=== PATIENT | male | born 1940 | race Caucasian/White ===

== ENCOUNTER → 2020-02-19 14:16 | Outpatient (BNVA) | payer OTHER, SELFPAY | PROVIDERS: Family Provider Family Medicine Adult Medicine; PCP Family Medicine Adult Medicine; Referring Provider Emergency Medicine Emergency Medical Services; Visit Provider Dermatology | DX: Z85.828 Personal history of other malignant neoplasm of skin (principal); L57.0 Actinic keratosis; L82.1 Other seborrheic keratosis; D22.9 Melanocytic nevi, unspecified | CPT/HCPCS: 17000; 17003; 99203 ==

== ENCOUNTER 2020-05-06 07:58 | Outpatient (RCR) | payer OTHER, SELFPAY | END 2020-05-29 23:59 | disposition home or self-care (01) | LOC: SPT 07:58 | PROVIDERS: PCP Emergency Medicine Emergency Medical Services; Referring Provider Emergency Medicine Emergency Medical Services; Visit Provider Emergency Medicine Emergency Medical Services | DX: M25.551 Pain in right hip (principal) | CPT/HCPCS: 97110; 97162 ==

== ENCOUNTER 2020-05-30 06:00 | Outpatient (RCR) | payer OTHER, SELFPAY | END 2020-06-29 23:59 | disposition home or self-care (01) | LOC: SPT 06:00 | PROVIDERS: PCP Emergency Medicine Emergency Medical Services; Referring Provider Emergency Medicine Emergency Medical Services; Visit Provider Emergency Medicine Emergency Medical Services | DX: M25.551 Pain in right hip (principal) | CPT/HCPCS: 97110 ==

== ENCOUNTER 2020-06-30 06:00 | Outpatient (RCR) | payer OTHER, SELFPAY | END 2020-07-27 23:59 | disposition home or self-care (01) | LOC: SPT 06:00 | PROVIDERS: PCP Emergency Medicine Emergency Medical Services; Referring Provider Emergency Medicine Emergency Medical Services; Visit Provider Emergency Medicine Emergency Medical Services | DX: M25.551 Pain in right hip (principal) | CPT/HCPCS: 97110 ==

== ENCOUNTER → 2021-01-07 08:08 | Outpatient (BNVA) | payer OTHER, SELFPAY | PROVIDERS: PCP Emergency Medicine Emergency Medical Services; Visit Provider Specialist | DX: M25.559 Pain in unspecified hip (principal) | CPT/HCPCS: 73502 ==

== ENCOUNTER 2021-10-16 14:02 | Outpatient (CLI) | payer OTHER, SELFPAY ==
--- NOTE | 2021-10-16 14:09 | USCV_ITS ---
Reginald Pelaez Age: 81 Gender: M : 1940 Exam Date: 10/16/2021 14:22 Ordering Phys: Sachin Gallagher DO Technologist: Eboni Alvarado [place] 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 Abnormal resting JAMES of 0.7 on the left side, suggestive of moderate peripheral arterial disease 3. Moderate diffuse plaques at the iliac and femoral arteries on the right side 3. Moderate to heavy diffuse heterogeneous irregular plaques at the left iliac and femoral arteries. Compared to the study from 11/29/2016, the occlusion of the infrapopliteal vessels on the right side appears new. The JAMES on the left side has decreased from 0.9 to 0.[address] Antonio Apodaca MD [facility] (Electronically Signed) Final Date: 16 Oct 2021 17:25 S
== END 2021-10-16 14:03 | disposition home or self-care (01) ==
LOC: RAD 14:02
PROVIDERS: PCP Emergency Medicine Emergency Medical Services; Visit Provider Emergency Medicine Emergency Medical Services
DX: M79.605 Pain in left leg (principal); M79.604 Pain in right leg
CPT/HCPCS: 93925

== ENCOUNTER → 2021-11-13 10:40 | Outpatient (BNVA) | payer OTHER, SELFPAY | PROVIDERS: PCP Emergency Medicine Emergency Medical Services; Visit Provider Internal Medicine | DX: I73.9 Peripheral vascular disease, unspecified (principal); I10 Essential (primary) hypertension; Z87.891 Personal history of nicotine dependence | CPT/HCPCS: 93005; 99204 ==

== ENCOUNTER 2021-12-21 16:50 | Inpatient (IN) | payer OTHER, MEDICARE, SELFPAY ==
[2021-12-21 17:02] VITALS: BP 85/56; PULSE 72; RESP 18; TEMP 36.4; O2SAT 95; BMI 25.1
--- NOTE | 2021-12-21 17:13 | W.ED.GENADLT ---
HPI - General Adult General: Chief complaint: Recheck/Abnormal Lab/Rx Stated complaint: Abnormal labs Time Seen by Provider: 12/21/21 17:10 History of Present Illness: Patient is a 81-year-old male with a history of hypertension prior hip surgery presenting to the emergency room with concerns of low sodium. Patient has been to his routine physical done at the [facility] was noted to have sodium 121. Patient denies any confusion, recent seizures, weakness in the arms or legs. Patient has no other focal complaints at this time. Patient has no prior history of SIADH, hyponatremia, heavy alcohol use or lung cancer. Onset: unknown Duration:ongoing Location:home Severity:moderate Associated symptoms: Deny chest pain, dyspnea, nausea, rash, palpitations or vomiting Review of Systems Const: Denies: fever(s) or chills Eyes: Denies: change in vision ENMT: Denies: mouth pain Card: Denies: chest pain or palpitations Resp: Denies: dyspnea or non-productive cough GI: Denies: abdominal pain, nausea, vomiting or diarrhea : Denies: dysuria Musc: Denies: extremity pain Skin/Breast: Denies: rash or new lesions Neuro: Denies: weakness in extremities Psych: Reports: other (Normal mood) Brien/Lymph: Denies: easy bruising PFSH ED PFSH: Medical History History of nonmelanoma skin cancer HTN (hypertension) Surgical History History of hip surgery Family History Other No pertinent family history Social History Smoking and tobacco status: former smoker Alcohol intake: current Alcohol type: beer, wine and hard liquor History of recent travel: No Physical Exam Const: COMMON NORMALS: alert HENMT: COMMON NORMALS: atraumatic HEAD & SCALP: atraumatic MOUTH: moist mucous membranes not abnormal Eye: COMMON NORMALS: EOMs intact bilaterally and conjunctivae normal CONJUNCTIVA: Yes conjunctivae normal Neck/C-Spine: COMMON NORMALS: full ROM and supple Resp: COMMON NORMALS: normal respiratory effort and clear to auscultation bilaterally AUSCULTATION: clear to auscultation bilaterally Cardio: COMMON NORMALS: regular rate RATE: regular rate GI: COMMON NORMALS: Soft to palpation and non-tender PALPATION: Yes Soft to palpation Extremity: COMMON NORMALS: full ROM Neuro: SENSORIUM/ORIENTATION: Yes alert MOTOR EXAM: No Abnormal motor strength present and Other motor observations present (no focal motor deficits) Psych: COMMON NORMALS: speech normal SPEECH: Yes normal speech MOOD & AFFECT: Yes euthymic mood Course Vital Signs: Vital signs: Vital Signs Temperature 97.6 F 12/21/21 17:02 Pulse Rate 68 12/21/21 18:21 Respiratory Rate 16 12/21/21 18:21 Blood Pressure 110/49 12/21/21 18:21 Pulse Oximetry 93 12/21/21 18:21 [facility] - General Adult Medical Decision Making 73-year-old male with a history of hypertension presenting to the emergency room for evaluation of hyponatremia. Patient is hemodynamically stable AAO x3, not confused. Neuro exam mostly intact. Sodium 118 in the emergency room. Potassium 3.3. Magnesium of 1.6. Patient will be admitted to the hospital for sodium correction. Patient received 1 L of IVF. No signs of confusion, altered renal status or seizure. Disposition: admission Lab Data : 12/21/21 17:20 12/21/21 17:20 Laboratory Results WBC 9.7 10^3/uL (4.0-10.0) 12/21/21 17:20 RBC 3.70 10^6/uL (4.1-5.3) L 12/21/21 17:20 Hgb 13.3 g/dL (11.7-16.6) 12/21/21 17:20 Hct 36.1 % (42.0-52.0) L 12/21/21 17:20 MCV 97.6 fl (80-94) H 12/21/21 17:20 MCH 35.9 pg (28.0-34.0) H 12/21/21 17:20 MCHC 36.8 g/dL (30.0-36.0) H 12/21/21 17:20 RDW 12.2 % (12.1-15.1) 12/21/21 17:20 Plt Count 337 10^3/cmm (130-400) 12/21/21 17:20 MPV 9.2 fL (7.4-10.4) 12/21/21 17:20 Neut % (Auto) 72.5 % 12/21/21 17:20 Lymph % (Auto) 14.8 % 12/21/21 17:20 [place] % (Auto) 10.9 % 12/21/21 17:20 Eos % (Auto) 0.6 % 12/21/21 17:20 Baso % (Auto) 0.6 % 12/21/21 17:20 Neut # (Auto) 7.00 10^3/uL (1.8-7.7) 12/21/21 17:20 Lymph # (Auto) 1.4 10^3/uL (0.8-4.8) 12/21/21 17:20 [place] # (Auto) 1.1 10^3/uL (0.2-0.9) H 12/21/21 17:20 Eos # (Auto) 0.1 10^3/uL (0.0-0.8) 12/21/21 17:20 Baso # (Auto) 0.1 10^3/uL (0.0-0.1) 12/21/21 17:20 Nucleated RBC % (auto) 0 % 12/21/21 17:20 Nucleated RBCs # 0.0 /100WBC 12/21/21 17:20 Sodium 118 mmol/L (136-145) L* 12/21/21 17:20 Potassium 3.3 mmol/L (3.5-5.1) L 12/21/21 17:20 Chloride 79 mmol/L (98-107) L 12/21/21 17:20 Carbon Dioxide 24 mmol/L (22-29) 12/21/21 17:20 Anion Gap 18.3 (5-19) 12/21/21 17:20 BUN 14 mg/dL (8-23) 12/21/21 17:20 Creatinine 1.0 mg/dL (0.7-1.2) 12/21/21 17:20 GFR Calculation Not Reportable 12/21/21 17:20 Glucose 108 mg/dL (65-115) 12/21/21 17:20 Calculated Osmolality 247 mOsm/kg (285-295) L 12/21/21 17:20 Calcium 8.9 mg/dL (8.5-10.5) 12/21/21 17:20 Magnesium 1.6 mg/dL (1.7-2.3) L 12/21/21 17:20 Discharge Plan Discharge Patient Disposition: Admitted As Inpatient Clinical Impression: Hyponatremia Condition: Stable Coding Level of Care Code ED Dispensing Lead for Jorge Fwd Exam Comprehensive
[2021-12-21 17:15] VITALS: BP 112/66; PULSE 70; RESP 16; O2SAT 96
[2021-12-21] MEDS: sodium chloride 0.9% 500 ML IV (17:28)
[2021-12-21 17:43] LABS: Basophils # 0.1 10^3/uL (0.0-0.1); Basophils % 0.6 %; Eosinophils # 0.1 10^3/uL (0.0-0.8); Eosinophils % 0.6 %; Hematocrit 36.1 % (42.0-52.0); Hemoglobin 13.3 g/dL (11.7-16.6); Lymphocytes # 1.4 10^3/uL (0.8-4.8); Lymphocytes % 14.8 %; Mean Corpuscular HGB Conc 36.8 g/dL (30.0-36.0); Mean Corpuscular Hemoglobin 35.9 pg (28.0-34.0); Mean Corpuscular Volume 97.6 fl (80-94); Mean Platelet Volume 9.2 fL (7.4-10.4); Monocytes # 1.1 10^3/uL (0.2-0.9); Monocytes % 10.9 %; Neutrophils % 72.5 %; Nucleated Red Blood Cells % 0 %; Platelet Count 337 10^3/cmm (130-400); Red Cell Distribution Width 12.2 % (12.1-15.1); White Blood Count 9.7 10^3/uL (4.0-10.0)
[2021-12-21 17:45] VITALS: BP 122/59; PULSE 71; RESP 16; O2SAT 93
[2021-12-21 17:58] LABS: Anion Gap 18.3 (5-19); Blood Urea Nitrogen 14 mg/dL (8-23); Calcium 8.9 mg/dL (8.5-10.5); Carbon Dioxide 24 mmol/L (22-29); Chloride 79 mmol/L (98-107); Glucose 108 mg/dL (65-115); Magnesium 1.6 mg/dL (1.7-2.3); Osmolality Calculated 247 mOsm/kg (285-295); Potassium 3.3 mmol/L (3.5-5.1)
[2021-12-21 18:10] LABS: Sodium 118 mmol/L (136-145)
[2021-12-21 18:21] VITALS: BP 110/49; PULSE 68; RESP 16; O2SAT 93
[2021-12-21 19:30] VITALS: BP 123/58; PULSE 74; RESP 16; O2SAT 97
[2021-12-21 20:39] VITALS: BP 97/50; PULSE 83; RESP 20; O2SAT 93
[2021-12-22] VITALS: BP 86/43; PULSE 74; RESP 18; TEMP 36.5; O2SAT 92
--- NOTE | 2021-12-22 00:32 | XR_ITS ---
WS: [id number] Exam: XR chest 1V portable [id number] Date/Time of Exam: 12/22/2021 5:27 AM Reason For Exam: SIADH,evaluate for any mass Comparison 11/11/2016. There are groundglass infiltrates in the mid and lower right lung zone and also possibly the left judith g base. The lungs are fully expanded. Normal cardiomediastinal silhouette for technique. No pleural e ffusions. Monitoring leads superimpose the chest. Bony structures are intact. XR/XR chest 1V portable [id number] IMPRESSION: 1. Groundglass interstitial infiltrates in the mid and lower right lung and als o probably in the left basal region.
--- NOTE | 2021-12-22 00:36 | P.HP_ITS ---
Providers/Chief Complaint Admitting Physician: Krystal Castaneda MD Primary Care Provider: Sachin Gallagher DO Chief Complaint: Abnormal labs History of Present Illness Reginald Pelaez is a 81 year old male who was sent to emergency room today from the [facility] after being found to have hyponatremia with sodium of 118 and routine lab check. Patient went in for his annual physical, reportedly had no symptoms, however on lab check sodium returned at 120. This was confirmed in the ER here today with sodium at 118. Patient denies any current symptoms of headache nausea vomiting altered mental status seizures etc. Denies any past history of hyponatremia. Denies any recent volume losses such as nausea vomiting or diarrhea. Denies any recent urological procedures. Denies any cough chest pain dyspnea palpitations. 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 Per patient he gets annual PET scan for surveillance in April every year. Denies any cough chest pain dyspnea or palpitations. Review of Systems General: Reports: 10 or more systems reviewed and unremarkable except in HPI and below Const: Denies: fever(s), chills or body aches Eyes: Denies: change in vision, blurry vision or photophobia ENMT: Reports: hoarseness; Denies: throat pain, enlarged tonsils, odynophagia or nasal congestion Card: Denies: chest pain, palpitations, irregular heart rhythm, edema, swelling of feet/ankles, lightheadedness, pre-syncope, dyspnea on exertion or orthopnea Resp: Denies: dyspnea, productive cough, non-productive cough, wheezing, stridor, pain on inspiration, change in phlegm color, hemoptysis or chest congestion GI: Denies: abdominal pain, nausea, vomiting, hematemesis, coffee ground emesis, dysphagia, heartburn, diarrhea, constipation, GI cramping, change in stool character, hematochezia or melena : Denies: flank pain, dysuria, urinary frequency, urinary urgency, urinary hesitancy or hematuria Musc: Denies: neck pain, back pain, extremity pain, joint swelling, joint warmth or deformity Neuro: Denies: headache(s), numbness in extremities, weakness in extremities, sensory changes, difficulty walking, frequent falls, dizziness, vertigo, behavioral changes, Slurred speech present or seizure-like activity Psych: Denies: anxiety, depression, suicidal ideation or homicidal ideation Endo: Denies: polyuria, polydipsia, tired all the time, cold intolerance or hot flashes Brien/Lymph: Denies: easy bruising or easy bleeding Medications/Allergies Home Medications Medication Instructions Recorded Confirmed Last Taken Type atenolol 25 mg tablet 25 mg PO DAILY 02/19/20 12/21/21 12/21/21 08:00 History lisinopril 20 1 tab PO DAILY 11/13/21 12/21/21 12/21/21 08:00 History mg-hydrochlorothiazide 25 mg tablet Allergies Allergy/AdvReac Type Severity Reaction Status Date / Time No Known Allergies Allergy Verified 11/13/21 10:51 PFSH Acute PFSH: Medical History (Updated 12/22/21 @ 03:52 by Krystal Castaneda MD) History of nonmelanoma skin cancer HTN (hypertension) Malignant neoplasm of glottis Surgical History History of hip surgery Family History Other No pertinent family history Social History Smoking and tobacco status: former smoker Alcohol intake: current Alcohol type: beer, wine and hard liquor History of recent travel: No Vitals/I&O/Wt Last Vital Signs Temp 97.6 F 12/21/21 17:02 Pulse 83 12/21/21 20:39 Resp 20 H 12/21/21 20:39 BP 97/50 12/21/21 20:39 Pulse Ox 93 12/21/21 20:39 12/21/21 12/21/21 12/22/21 14:59 22:59 06:59 Intake Total 500 / 500 Balance 500 / 500 Weight last 48 hrs Weight 77.111 kg Physical Exam Narrative: GEN: Awake, alert and oriented, no acute distress CVS: S1S2 N RS: CTA B/L Abd: Soft, nt/nd , bs+ 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 focal neuro 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 Data : 12/21/21 17:20 12/21/21 17:20 Other Labs: Laboratory Results WBC 9.7 10^3/uL (4.0-10.0) 12/21/21 17:20 RBC 3.70 10^6/uL (4.1-5.3) L 12/21/21 17:20 Hgb 13.3 g/dL (11.7-16.6) 12/21/21 17:20 Hct 36.1 % (42.0-52.0) L 12/21/21 17:20 MCV 97.6 fl (80-94) H 12/21/21 17:20 MCH 35.9 pg (28.0-34.0) H 12/21/21 17:20 MCHC 36.8 g/dL (30.0-36.0) H 12/21/21 17:20 RDW 12.2 % (12.1-15.1) 12/21/21 17:20 Plt Count 337 10^3/cmm (130-400) 12/21/21 17:20 MPV 9.2 fL (7.4-10.4) 12/21/21 17:20 Neut % (Auto) 72.5 % 12/21/21 17:20 Lymph % (Auto) 14.8 % 12/21/21 17:20 [place] % (Auto) 10.9 % 12/21/21 17:20 Eos % (Auto) 0.6 % 12/21/21 17:20 Baso % (Auto) 0.6 % 12/21/21 17:20 Neut # (Auto) 7.00 10^3/uL (1.8-7.7) 12/21/21 17:20 Lymph # (Auto) 1.4 10^3/uL (0.8-4.8) 12/21/21 17:20 [place] # (Auto) 1.1 10^3/uL (0.2-0.9) H 12/21/21 17:20 Eos # (Auto) 0.1 10^3/uL (0.0-0.8) 12/21/21 17:20 Baso # (Auto) 0.1 10^3/uL (0.0-0.1) 12/21/21 17:20 Nucleated RBC % (auto) 0 % 12/21/21 17:20 Nucleated RBCs # 0.0 /100WBC 12/21/21 17:20 Sodium 118 mmol/L (136-145) L* 12/21/21 17:20 Potassium 3.3 mmol/L (3.5-5.1) L 12/21/21 17:20 Chloride 79 mmol/L (98-107) L 12/21/21 17:20 Carbon Dioxide 24 mmol/L (22-29) 12/21/21 17:20 Anion Gap 18.3 (5-19) 12/21/21 17:20 BUN 14 mg/dL (8-23) 12/21/21 17:20 Creatinine 1.0 mg/dL (0.7-1.2) 12/21/21 17:20 GFR Calculation Not Reportable 12/21/21 17:20 Glucose 108 mg/dL (65-115) 12/21/21 17:20 Calculated Osmolality 247 mOsm/kg (285-295) L 12/21/21 17:20 Calcium 8.9 mg/dL (8.5-10.5) 12/21/21 17:20 Magnesium 1.6 mg/dL (1.7-2.3) L 12/21/21 17:20 A&P Assessment and plan (1) Hyponatremia: Incidentally noted to have sodium of 118 upon routine check with his primary care provider. 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 Check urine lites, TSH, cortisol, lipid panel, uric acid, serum and urine osmolality for evaluation of hyponatremia. Does not appear grossly hyper or hypovolemic. No recent changes in medications. Will hold hydrochlorothiazide. Continue atenolol and lisinopril for hypertension treatment at this time. History of malignancy in the glottis status post radiation. Will obtain chest x-ray to look for any underlying lung malignancies and resulting paraneoplastic SIADH. Currently on normal saline at 75 cc an hour, will trend sodium every 6 hours. 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
[2021-12-22] MEDS: sodium chlor 0.9% + KCl 20 mEq 20 MEQ/1,000 ML BAG 75 MEQ IV (00:48)
--- NOTE | 2021-12-22 02:48 | PC.NURSE ---
Pérez RT made aware of pt needing EKG
[2021-12-22 04:00] VITALS: BP 105/59; PULSE 71; RESP 18; TEMP 36.4; O2SAT 96
[2021-12-22 04:40] LABS: Add Urine Microscopic? NO; Charge for UA Resulting for Rev
[2021-12-22 04:43] LABS: Bilirubin Urine Neg (Negative); Blood Urine Neg (Negative); Glucose Urine UA Norm (Normal); Ketones Urine 1+ (Negative); Leukocyte Esterase Urine Negative (Negative); Nitrate Urine Negative (Negative); Protein Urine Neg (Negative); Urine Appearance Clear (CLEAR); Urine Color Yellow (Yellow); Urobilinogen Urine Norm (Negative); pH Urine 7 (5-7)
[2021-12-22 04:56] LABS: Potassium, Radom Urine 11 mmol/L; Urine Random Chloride 29 mmol/L; Urine Random Sodium 41 mmol/L
[2021-12-22 07:40] VITALS: BP 124/66; PULSE 61; RESP 14; TEMP 36.3; O2SAT 98
[2021-12-22] MEDS: atenolol 50 mg Tablet 25 MG PO (08:31)
[2021-12-22] MEDS: lisinopril 20 mg Tablet PO (08:31)
[2021-12-22 10:53] LABS: Alanine Aminotransferase 42 U/L (0-41); Albumin Level 3.6 g/dL (3.5-5.2); Alkaline Phosphatase 144 IU/L (40-130); Anion Gap 14.5 (5-19); Aspartate Amino Transferase 58 U/L (0-40); Blood Urea Nitrogen 14 mg/dL (8-23); Carbon Dioxide 28 mmol/L (22-29); Chloride 87 mmol/L (98-107); Globulin 2.4 g/dL (1.3-4.6); Glucose 103 mg/dL (65-115); Osmolality Calculated 263 mOsm/kg (285-295); Potassium 3.5 mmol/L (3.5-5.1); Sodium 126 mmol/L (136-145); Total Bilirubin 1.3 mg/dL (0.15-1.2)
[2021-12-22 11:17] VITALS: BP 107/69; PULSE 66; RESP 12; TEMP 36.4; O2SAT 93
[2021-12-22 11:18] LABS: Uric Acid 7.5 mg/dL (3.4-7.0)
[2021-12-22 11:44] LABS: Cortisol Random 12.15 ug/dL (2.47-19.5)
[2021-12-22 12:08] LABS: Chol HDL Ratio 1.77 mg/dL (1.0-5.00); Cholesterol 126 mg/dL (0-200); HDL Cholesterol 71 mg/dL (60-100); LDL Cholesterol Calculated 43 mg/dL (50-129); Thyroid Stimulating Hormone 5.61 uIU/mL (0.27-4.20); Triglycerides 59 mg/dL (0-150); VLDL Cholestrol Calculation 12 mg/dL (0-30)
--- NOTE | 2021-12-22 12:28 | PM.DCS ---
Discharge Providers Date of Admission: 12/22/21 00:30 Date of Discharge: December 22, 2021 Attending Provider at Admission: Krystal Castaneda MD Attending Provider at Discharge: Alexander Patton MD Primary Care Provider: Sachin Gallagher, Diagnoses at Discharge Discharge Diagnosis (1) Hyponatremia: Status: Acute Reason for Visit Reason for Visit: Abnormal labs Hospital Course Hospital Course Reginald Pelaez is a 81 year old male who was sent to emergency room today from the [facility] clinic after being found to have hyponatremia with sodium of 118 and routine lab check.? Patient went in for his annual physical, reportedly had no symptoms, however on lab check sodium returned at 120.? This was confirmed in the ER here today with sodium at 118.? Patient denies any current symptoms of headache nausea vomiting altered mental status seizures etc.? Denies any past history of hyponatremia.? Denies any recent volume losses such as nausea vomiting or diarrhea.? Denies any recent urological procedures.? Denies any cough chest pain dyspnea palpitations.? 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 Per patient he gets annual PET scan for surveillance in April every year. Denies any cough chest pain dyspnea or palpitations. Patient was admitted to hospital for evaluation and management. It is believed his hyponatremia secondary to combination of dehydration and mild SIADH. He was started on IV fluids and his sodium responded appropriately with level improving to 126. Patient remained asymptomatic during her hospitalization. CTA chest was done prior to discharge to rule out any lung mass given his history of glottis cancer post radiation therapy. Further work-up included mildly elevated TSH, baseline lipid panel, uric acid and blood sugars. He has been discharged hemodynamically stable condition with advised to maintain his hydration up to 2 L daily, maintain regular diet with advised to follow-up with his primary care provider within next 1 week for repeat blood work. Physical Exam Narrative: GEN: Awake, alert and oriented, no acute distress CVS: S1S2 N RS: CTA B/L Abd: Soft, nt/nd , bs+ SLAB PULLER: no focal neuro deficits Discharge Data Studies Completed and Pending Completed Studies During Hospitalization Category Date Time Status CXRP [XR chest 1V portable [id number]] Routine Exams 12/22/21 00:32 Completed Pending at discharge Category Date Time Status A1C [Hemoglobin A1C] Routine Lab 12/22/21 09:49 Received Lipid Panel AM LABS Lab 12/23/21 04:00 Ordered Lipid Profile w/VLDL Routine Lab 12/22/21 09:49 Results TIBC [Total Iron Binding Capacity] Routine Lab 12/22/21 09:49 Results Thyroid Stimulating Hormone AM LABS Lab 12/23/21 04:00 Ordered Thyroid Stimulating Hormone Stat Lab 12/22/21 09:49 Results Radiology Impressions Chest X-Ray 12/22/21 00:32 IMPRESSION: 1. Groundglass interstitial infiltrates in the mid and lower right lung and also probably in the left basal region. Laboratory Results WBC 9.7 10^3/uL (4.0-10.0) 12/21/21 17:20 RBC 3.70 10^6/uL (4.1-5.3) L 12/21/21 17:20 Hgb 13.3 g/dL (11.7-16.6) 12/21/21 17:20 Hct 36.1 % (42.0-52.0) L 12/21/21 17:20 MCV 97.6 fl (80-94) H 12/21/21 17:20 MCH 35.9 pg (28.0-34.0) H 12/21/21 17:20 MCHC 36.8 g/dL (30.0-36.0) H 12/21/21 17:20 RDW 12.2 % (12.1-15.1) 12/21/21 17:20 Plt Count 337 10^3/cmm (130-400) 12/21/21 17:20 MPV 9.2 fL (7.4-10.4) 12/21/21 17:20 Neut % (Auto) 72.5 % 12/21/21 17:20 Lymph % (Auto) 14.8 % 12/21/21 17:20 [place] % (Auto) 10.9 % 12/21/21 17:20 Eos % (Auto) 0.6 % 12/21/21 17:20 Baso % (Auto) 0.6 % 12/21/21 17:20 Neut # (Auto) 7.00 10^3/uL (1.8-7.7) 12/21/21 17:20 Lymph # (Auto) 1.4 10^3/uL (0.8-4.8) 12/21/21 17:20 [place] # (Auto) 1.1 10^3/uL (0.2-0.9) H 12/21/21 17:20 Eos # (Auto) 0.1 10^3/uL (0.0-0.8) 12/21/21 17:20 Baso # (Auto) 0.1 10^3/uL (0.0-0.1) 12/21/21 17:20 Nucleated RBC % (auto) 0 % 12/21/21 17:20 Nucleated RBCs # 0.0 /100WBC 12/21/21 17:20 Sodium 126 mmol/L (136-145) L 12/22/21 09:49 Potassium 3.5 mmol/L (3.5-5.1) 12/22/21 09:49 Chloride 87 mmol/L (98-107) L 12/22/21 09:49 Carbon Dioxide 28 mmol/L (22-29) 12/22/21 09:49 Anion Gap 14.5 (5-19) 12/22/21 09:49 BUN 14 mg/dL (8-23) 12/22/21 09:49 Creatinine 0.9 mg/dL (0.7-1.2) 12/22/21 09:49 GFR Calculation Not Reportable 12/22/21 09:49 Glucose 103 mg/dL (65-115) 12/22/21 09:49 Calculated Osmolality 263 mOsm/kg (285-295) L 12/22/21 09:49 Uric Acid 7.5 mg/dL (3.4-7.0) H 12/22/21 09:49 Calcium 9.0 mg/dL (8.5-10.5) 12/22/21 09:49 Magnesium 1.6 mg/dL (1.7-2.3) L 12/21/21 17:20 Total Bilirubin 1.3 mg/dL (0.15-1.2) H 12/22/21 09:49 AST 58 U/L (0-40) H 12/22/21 09:49 ALT 42 U/L (0-41) H 12/22/21 09:49 Alkaline Phosphatase 144 IU/L (40-130) H 12/22/21 09:49 Total Protein 6.0 g/dL (6.6-8.7) L 12/22/21 09:49 Albumin 3.6 g/dL (3.5-5.2) 12/22/21 09:49 Globulin 2.4 g/dL (1.3-4.6) 12/22/21 09:49 Triglycerides 59 mg/dL (0-150) 12/22/21 09:49 Cholesterol 126 mg/dL (0-200) 12/22/21 09:49 LDL Cholesterol, Calc 43 mg/dL (50-129) L 12/22/21 09:49 Total VLDL Cholesterol 12 mg/dL (0-30) 12/22/21 09:49 HDL Cholesterol 71 mg/dL (60-100) 12/22/21 09:49 Cholesterol/HDL Ratio 1.77 mg/dL (1.0-5.00) 12/22/21 09:49 TSH 5.61 uIU/mL (0.27-4.20) H 12/22/21 09:49 Random Cortisol 12.15 ug/dL (2.47-19.5) 12/22/21 09:49 Urine Color Yellow (Yellow) 12/22/21 04:33 Urine Appearance Clear (CLEAR) 12/22/21 04:33 Urine pH 7 (5-7) 12/22/21 04:33 Ur Specific [place] 1.000 (1.005-1.030) L 12/22/21 04:33 Urine Protein Neg (Negative) 12/22/21 04:33 Urine Glucose (UA) Norm (Normal) 12/22/21 04:33 Urine Ketones 1+ (Negative) H 12/22/21 04:33 Urine Blood Neg (Negative) 12/22/21 04:33 Urine Nitrate Negative (Negative) 12/22/21 04:33 Urine Bilirubin Neg (Negative) 12/22/21 04:33 Urine Urobilinogen Norm mg/dL (Negative) 12/22/21 04:33 Ur Leukocyte Esterase Negative (Negative) 12/22/21 04:33 Ur Random Sodium 41 mmol/L 12/22/21 04:33 Ur Random Potassium 11 mmol/L 12/22/21 04:33 Ur Random Chloride 29 mmol/L 12/22/21 04:33 Vitals Last Vital Signs Temp 97.6 F 12/22/21 11:17 Pulse 66 12/22/21 11:17 Resp 12 12/22/21 11:17 BP 107/69 12/22/21 11:17 Pulse Ox 93 12/22/21 11:17 Discharge Plan Discharge Patient Disposition: Home Condition: Stable Prescriptions: Continued atenolol 25 mg tablet 25 mg PO DAILY 0RF lisinopril-hydrochlorothiazide 20-25 mg tablet 1 tab PO DAILY 0RF Discharge Orders: Discharge Order (Routine); Ordered 12/22/21 Ordered By: Alexander Patton Referrals: Sachin Gallagher, [Primary Care Provider] - 7-10 days Discharge Diet: Regular Discharge Activity: Resume usual activity and Increase activity as tolerated Patient Instructions: Opioid Safety Activity Restrictions/Additional Instructions: Please recheck your CBC and CMP with a primary care provider within next 1 week to 10 days. Continue taking regular diet. Please make sure you maintain your hydration with up to 2 to 3 L of liquid daily. Discharge Attestations Time Spent in Discharge Care*: greater than 30 min Specific Discharge Activities: educating patient, discussing with watch case polisher/social workers/dc planners, documenting/other paperwork and evaluating patient/reviewing data Status at Discharge: Cognitive status at discharge: cognitively intact, Behavioral status at discharge: cooperative, Functional status at discharge: independent ambulation, Overall status at discharge: patient is back to baseline Quality Metrics Clinical Quality Measures [ No reported AMI, CVA or VTE this stay] Coding Level of Care Code Acute [facility] DC note Diagnoses Hyponatremia E87.1
[2021-12-22 12:32] LABS: Iron 154 ug/dL (59-158)
--- NOTE | 2021-12-22 12:32 | CT_ITS ---
WS: [id number] CT CHEST ANGIOGRAPHY WITH REFORMATS HISTORY: h/o salivary gland tumor, siadh, short of breath and cough. TECHNIQUE: Contiguous axial images are obtained through the chest during arterial injection of intrav enous contrast. Images are reconstructed to evaluate the pulmonary arteries. MIP imaging also reviewe d. All CT scans at [facility] use at least one of these dose optimization techniques: automat ed exposure control; mA and/or kV adjustment per patient size (includes targeted exams where dose is matched to clinical indication); or iterative reconstruction. CONTRAST: Omnipaque 350; 65 mL IV. DLP: 533.57 mGy.cm COMPARISON: None available. Good opacification of the pulmonary artery. There are no filling defects or pulmonary embolism. Pulmo nary artery is normal size. Normal-sized thoracic aorta with calcification. Very mild enlargement the heart chambers with no RIGHT heart strain. No mediastinal or hilar adenopathy. Centrilobular emphysema. Motion artifact at the lung bases. No mass or pulmonary nodule. No effusions . No adrenal mass. Surface of the liver is slightly nodular suggesting cirrhosis. Pancreas and gallblad betito are incompletely visualized. Splenic granulomata. Anterior wedging of T12 is chronic. CT/CT angio chest PE protcl [id number] IMPRESSION: 1. No pulmonary embolism. 2. Centrilobular emphysema with no mass. 3. Atherosclerosis aorta with no aneurysm.
[2021-12-22 12:35] LABS: Estmated Average Glucose 85; Hemoglobin A1C 4.6 % (4.0-6.0)
[2021-12-22 13:03] LABS: Unsaturated Iron Binding < 17 ug/dL (112-347)
[2021-12-22 13:27] LABS: Free T4 Free Thyroxine 1.14 ng/dL (0.82-1.77); T3 Free 2.5 PG/ML (2.0-4.4)
[2021-12-22] MEDS: iohexol 350 mg/mL 100 mL Btl IV (13:33)
[2021-12-22 15:41] VITALS: BP 107/69; PULSE 66; RESP 12; TEMP 36.4; O2SAT 93
== END 2021-12-22 15:02 | disposition home or self-care (01) | DRG 645 ==
LOC: ER 17:38 → MEDSURG 21:54
PROVIDERS: Admitting Provider Student in an Organized Health Care Education/Training Program; Emergency Provider Emergency Medicine; PCP Emergency Medicine Emergency Medical Services; Visit Provider Student in an Organized Health Care Education/Training Program
DX: E22.2 Syndrome of inappropriate secretion of antidiuretic hormone (principal); I10 Essential (primary) hypertension; Z85.828 Personal history of other malignant neoplasm of skin; Z87.891 Personal history of nicotine dependence; Z85.21 Personal history of malignant neoplasm of larynx; Z92.3 Personal history of irradiation; E86.0 Dehydration
CPT/HCPCS: 36415; 71045; 71275; 80048; 80053; 80061; 81003; 82436; 82533; 83036; 83540; 83550; 83735; 84133; 84300; 84439; 84443; 84481; 84550; 85025; 96360; 99285; J7040; Q9967

== ENCOUNTER 2021-12-24 15:10 | Emergency (ER) | payer OTHER, MEDICARE, SELFPAY ==
[2021-12-24 16:17] VITALS: BP 102/59; PULSE 66; RESP 15; TEMP 36.4; O2SAT 96; BMI 25.1
--- NOTE | 2021-12-24 16:58 | W.ED.GENADLT ---
Documented by User: KAE Pearl 12/25/21 17:07 HPI - General Adult General: Chief complaint: General Medical Stated complaint: L KNEE PAIN Time Seen by Provider: 12/24/21 16:25 Source: patient Mode of arrival: wheelchair Limitations: no limitations History of Present Illness: 81-year-old male patient comes in today with complaints of left knee pain. Patient had recently been discharged from the hospital for hyponatremia. Patient went to the [facility] for follow-up appointment and had discussed his left knee being in pain for about 1 week. Patient was wanting to get it looked [facility] but [facility]. Patient denies any complaints except for his knee pain. Patient is a 81-year-old male presents to ED today with a complaint of left knee pain. He tells [facility] and they apparently sent him to the ED because of low blood pressure. Upon arrival to the ED his blood pressure is 102/59 which seems to be about his baseline. He is not complaining of lightheadedness, dizziness, passing out episodes. There are some report that he was also told his sodium is high. Patient was discharged recently from the hospital for hyponatremia. 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 Again patient's blood pressure seems to be normal for him and he has no symptoms of hypotension. Care transferred to CHRISTIAN Dotson pending these results ES Vital Signs: Vital signs: Vital Signs Temperature 97.5 F L 12/24/21 16:17 Pulse Rate 66 12/24/21 16:17 Respiratory Rate 15 12/24/21 16:17 Blood Pressure 102/59 12/24/21 16:17 Pulse Oximetry 96 12/24/21 16:17 Oxygen Delivery Me thod 12/24/21 16:17 MDM - General Adult Lab Data : 12/24/21 17:21 12/24/21 17:21 Radiology Impressions Knee X-Ray 12/24/21 16:59 IMPRESSION: No acute finding. Laboratory Results WBC 11.0 10^3/uL (4.0-10.0) H 12/24/21 17:21 RBC 3.71 10^6/uL (4.1-5.3) L 12/24/21 17:21 Hgb 13.2 g/dL (11.7-16.6) 12/24/21 17:21 Hct 38.0 % (42.0-52.0) L 12/24/21 17:21 MCV 102.4 fl (80-94) H 12/24/21 17:21 MCH 35.6 pg (28.0-34.0) H 12/24/21 17:21 MCHC 34.7 g/dL (30.0-36.0) 12/24/21 17:21 RDW 12.5 % (12.1-15.1) 12/24/21 17:21 Plt Count 317 10^3/cmm (130-400) 12/24/21 17:21 MPV 9.4 fL (7.4-10.4) 12/24/21 17:21 Neut % (Auto) 71.2 % 12/24/21 17:21 Lymph % (Auto) 15.3 % 12/24/21 17:21 [place] % (Auto) 11.5 % 12/24/21 17:21 Eos % (Auto) 0.5 % 12/24/21 17:21 Baso % (Auto) 0.7 % 12/24/21 17:21 Neut # (Auto) 7.82 10^3/uL (1.8-7.7) H 12/24/21 17:21 Lymph # (Auto) 1.7 10^3/uL (0.8-4.8) 12/24/21 17:21 [place] # (Auto) 1.3 10^3/uL (0.2-0.9) H 12/24/21 17:21 Eos # (Auto) 0.1 10^3/uL (0.0-0.8) 12/24/21 17:21 Baso # (Auto) 0.1 10^3/uL (0.0-0.1) 12/24/21 17:21 Nucleated RBC % (auto) 0 % 12/24/21 17:21 Nucleated RBCs # 0.0 /100WBC 12/24/21 17:21 Sodium 123 mmol/L (136-145) L 12/24/21 17:21 Potassium 3.9 mmol/L (3.5-5.1) 12/24/21 17:21 Chloride 84 mmol/L (98-107) L 12/24/21 17:21 Carbon Dioxide 23 mmol/L (22-29) 12/24/21 17:21 Anion Gap 19.9 (5-19) H 12/24/21 17:21 BUN 22 mg/dL (8-23) 12/24/21 17:21 Creatinine 1.9 mg/dL (0.7-1.2) H 12/24/21 17:21 GFR Calculation Not Reportable 12/24/21 17:21 Glucose 103 mg/dL (65-115) 12/24/21 17:21 Calculated Osmolality 260 mOsm/kg (285-295) L 12/24/21 17:21 Calcium 9.3 mg/dL (8.5-10.5) 12/24/21 17:21 Discharge Plan Discharge Patient Disposition: Home Clinical Impression: Knee pain, left anterior Condition: Stable Prescriptions: New celecoxib 100 mg capsule 100 mg PO BID Qty: 20 0RF No Action atenolol 25 mg tablet 25 mg PO DAILY lisinopril-hydrochlorothiazide 20-25 mg tablet 1 tab PO DAILY Discharge Orders: Discharge ED (Routine); Ordered 12/24/21 Ordered By: Sahil Adams Referrals: Sachin Gallagher, DO [Primary Care Provider] - Discharge Diet: Usual diet Discharge Activity: Increase activity as tolerated Patient Instructions: Arthralgia (ED) Activity Restrictions/Additional Instructions: Maintain activity as tolerated. Use a cane or walker to help with ambulation. Take celecoxib 100 mg twice a day to help with pain and inflammation. Drink plenty of water with medication. Follow-up with primary care in 1 week for persistent symptoms or new concerns. Return to ER for redness swelling of the knee, high fever greater than 100.4, or new concerns. Sign Out Sign Out Data: Patient Sign Out occurred on 12/24/21 at 17:03. Patient's care was discussed, and care was transferred from to Sahil Adams. Coding Level of Care Code ED Fountain Waitress/Waiter for Chg Fwd Exam Comprehensive Documented by User: CHRISTIAN Pizano 12/24/21 18:46 HPI - General Adult General: Chief complaint: General Medical Stated complaint: L KNEE PAIN Time Seen by Provider: 12/24/21 16:25 History of Present Illness: 81-year-old male patient comes in today with complaints of left knee pain. Patient had recently been discharged from the hospital for hyponatremia. [facility] and had discussed his left knee being in pain for about 1 week. Patient was wanting to get it looked at but the [facility] test and referred him to the ER. Patient denies any complaints except for his knee pain. 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 Surgical History History of hip surgery Family History Other No pertinent family history Social History Smoking and tobacco status: former smoker Alcohol intake: current Alcohol type: beer, wine and hard liquor History of recent travel: No Physical Exam Const: COMMON NORMALS: alert HENMT: COMMON NORMALS: normocephalic HEAD & SCALP: normocephalic Neck/C-Spine: GENERAL: Yes normal visual inspection and No tender Resp: COMMON NORMALS: normal respiratory effort and clear to auscultation bilaterally AUSCULTATION: clear to auscultation bilaterally Cardio: COMMON NORMALS: regular rate and regular rhythm RATE: regular rate RHYTHM: regular rhythm GI: COMMON NORMALS: Soft to palpation and non-tender PALPATION: Yes Soft to palpation Extremity: LEFT LOWER EXTREMITY: Yes knee joint (No swelling, no redness, normal range of motion. Distal pulses intact.) Neuro: SENSORIUM/ORIENTATION: Yes alert Skin: COMMON NORMALS: no rashes or lesions noted GENERAL SKIN EXAM: no rashes or lesions noted Course Vital Signs: Vital signs: Vital Signs Temperature 97.5 F L 12/24/21 16:17 Pulse Rate 66 12/24/21 16:17 Respiratory Rate 15 12/24/21 16:17 Blood Pressure 102/59 12/24/21 16:17 Pulse Oximetry 96 12/24/21 16:17 Oxygen Delivery Me thod 12/24/21 16:17 MDM - General Adult Medical Decision Making 81-year-old male patient comes in today with left knee pain. On exam patient has no swelling or redness to the left knee. Pulses and sensation are normal distally. No calf pain is noted on palpation. Patient reports her pain is in the anterior part of his knee when he stands. Differential diagnosis includes patellofemoral syndrome, osteoarthritis, fracture. X-ray of the left knee was unremarkable. Reviewed exam with patient recommended celecoxib 100 mg twice a day for the next 10 days to see if that would help with his pain and inflammation. Suspect some arthralgias/arthritis in his left knee. Laboratory values CBC was unremarkable. Sodium was noted to be 123. Patient reported understanding of care plan and need for follow-up. Lab Data : 12/24/21 17:21 12/24/21 17:21 Radiology Impressions Knee X-Ray 12/24/21 16:59 IMPRESSION: No acute finding. Laboratory Results WBC 11.0 10^3/uL (4.0-10.0) H 12/24/21 17:21 RBC 3.71 10^6/uL (4.1-5.3) L 12/24/21 17:21 Hgb 13.2 g/dL (11.7-16.6) 12/24/21 17:21 Hct 38.0 % (42.0-52.0) L 12/24/21 17:21 MCV 102.4 fl (80-94) H 12/24/21 17:21 MCH 35.6 pg (28.0-34.0) H 12/24/21 17:21 MCHC 34.7 g/dL (30.0-36.0) 12/24/21 17:21 RDW 12.5 % (12.1-15.1) 12/24/21 17:21 Plt Count 317 10^3/cmm (130-400) 12/24/21 17:21 MPV 9.4 fL (7.4-10.4) 12/24/21 17:21 Neut % (Auto) 71.2 % 12/24/21 17:21 Lymph % (Auto) 15.3 % 12/24/21 17:21 [place] % (Auto) 11.5 % 12/24/21 17:21 Eos % (Auto) 0.5 % 12/24/21 17:21 Baso % (Auto) 0.7 % 12/24/21 17:21 Neut # (Auto) 7.82 10^3/uL (1.8-7.7) H 12/24/21 17:21 Lymph # (Auto) 1.7 10^3/uL (0.8-4.8) 12/24/21 17:21 [place] # (Auto) 1.3 10^3/uL (0.2-0.9) H 12/24/21 17:21 Eos # (Auto) 0.1 10^3/uL (0.0-0.8) 12/24/21 17:21 Baso # (Auto) 0.1 10^3/uL (0.0-0.1) 12/24/21 17:21 Nucleated RBC % (auto) 0 % 12/24/21 17:21 Nucleated RBCs # 0.0 /100WBC 12/24/21 17:21 Sodium 123 mmol/L (136-145) L 12/24/21 17:21 Potassium 3.9 mmol/L (3.5-5.1) 12/24/21 17:21 Chloride 84 mmol/L (98-107) L 12/24/21 17:21 Carbon Dioxide 23 mmol/L (22-29) 12/24/21 17:21 Anion Gap 19.9 (5-19) H 12/24/21 17:21 BUN 22 mg/dL (8-23) 12/24/21 17:21 Creatinine 1.9 mg/dL (0.7-1.2) H 12/24/21 17:21 GFR Calculation Not Reportable 12/24/21 17:21 Glucose 103 mg/dL (65-115) 12/24/21 17:21 Calculated Osmolality 260 mOsm/kg (285-295) L 12/24/21 17:21 Calcium 9.3 mg/dL (8.5-10.5) 12/24/21 17:21 Discharge Plan Discharge Patient Disposition: Home Clinical Impression: Knee pain, left anterior Condition: Stable Prescriptions: New celecoxib 100 mg capsule 100 mg PO BID Qty: 20 0RF No Action atenolol 25 mg tablet 25 mg PO DAILY lisinopril-hydrochlorothiazide 20-25 mg tablet 1 tab PO DAILY Discharge Orders: Discharge ED (Routine); Ordered 12/24/21 Ordered By: Sahil Adams Referrals: Sachin Gallagher, DO [Primary Care Provider] - Discharge Diet: Usual diet Discharge Activity: Increase activity as tolerated Patient Instructions: Arthralgia (ED) Activity Restrictions/Additional Instructions: Maintain activity as tolerated. Use a cane or walker to help with ambulation. Take celecoxib 100 mg twice a day to help with pain and inflammation. Drink plenty of water with medication. Follow-up with primary care in 1 week for persistent symptoms or new concerns. Return to ER for redness swelling of the knee, high fever greater than 100.4, or new concerns. Sign Out Sign Out Data: Patient Sign Out occurred on 12/24/21 at 17:03. Patient's care was discussed, and care was transferred from to Sahil Adams. Coding Level of Care Code ED Fountain Waitress/Waiter for Jorge Fwd Exam Comprehensive
--- NOTE | 2021-12-24 16:59 | XRR_ITS ---
PROCEDURE INFORMATION: Exam: XR Left Knee Exam date and time: 12/24/2021 5:03 PM Age: 81 years old Clinical indication: Pain; Knee; Left TECHNIQUE: Imaging protocol: Radiologic exam of the Left knee. Views: 3 views. COMPARISON: No relevant prior studies available. FINDINGS: Bones/joints: Normal. Soft tissues: Normal. Vasculature: Arterial calcifications. XR/XR knee LT 3V* [id number] IMPRESSION: No acute finding.
[2021-12-24 17:36] LABS: Basophils # 0.1 10^3/uL (0.0-0.1); Basophils % 0.7 %; Eosinophils # 0.1 10^3/uL (0.0-0.8); Eosinophils % 0.5 %; Hemoglobin 13.2 g/dL (11.7-16.6); Lymphocytes # 1.7 10^3/uL (0.8-4.8); Lymphocytes % 15.3 %; Mean Corpuscular HGB Conc 34.7 g/dL (30.0-36.0); Mean Corpuscular Hemoglobin 35.6 pg (28.0-34.0); Mean Corpuscular Volume 102.4 fl (80-94); Mean Platelet Volume 9.4 fL (7.4-10.4); Monocytes # 1.3 10^3/uL (0.2-0.9); Monocytes % 11.5 %; Neutrophils # 7.82 10^3/uL (1.8-7.7); Neutrophils % 71.2 %; Nucleated Red Blood Cells % 0 %; Platelet Count 317 10^3/cmm (130-400); Red Blood Count 3.71 10^6/uL (4.1-5.3); Red Cell Distribution Width 12.5 % (12.1-15.1)
[2021-12-24 18:02] LABS: Anion Gap 19.9 (5-19); Blood Urea Nitrogen 22 mg/dL (8-23); Calcium 9.3 mg/dL (8.5-10.5); Carbon Dioxide 23 mmol/L (22-29); Chloride 84 mmol/L (98-107); Glucose 103 mg/dL (65-115); Osmolality Calculated 260 mOsm/kg (285-295); Potassium 3.9 mmol/L (3.5-5.1); Sodium 123 mmol/L (136-145)
== END 2021-12-24 17:41 | disposition home or self-care (01) ==
PROVIDERS: Physician Assistant; Emergency Provider Nurse Practitioner Family; PCP Emergency Medicine Emergency Medical Services
DX: M25.562 Pain in left knee (principal); I10 Essential (primary) hypertension; Z85.21 Personal history of malignant neoplasm of larynx; Z87.891 Personal history of nicotine dependence
CPT/HCPCS: 73562; 80048; 85025; 99284

== ENCOUNTER 2022-01-19 13:31 | Outpatient (CLI) | payer OTHER, SELFPAY ==
--- NOTE | 2022-01-19 13:46 | CT_ITS ---
WS: [id number] CT ANGIOGRAPHY OF THE ABDOMINAL AORTA WITH RUNOFF TO THE ANKLES HISTORY: PVD TECHNIQUE: Arterial injection is performed during imaging to evaluate the aorta and runoff vessels to the ankles. MIP and volume rendering imaging has also been performed. All images are reviewed. All C T scans at [facility] use at least one of these dose optimization techniques: automated exposu re control; mA and/or kV adjustment per patient size (includes targeted exams where dose is matched t o clinical indication); or iterative reconstruction. Contrast: Omnipaque 350; 100 mL IV. DLP: 619.61 mGy.cm COMPARISON: None available. Motion artifact at the lung bases. Very small peripheral pleural-based nodules were also present on t he prior study. These cannot be further evaluated with this amount of motion. Mildly enlarged LEFT he art chambers. Abdominal aorta: There is extensive atherosclerotic plaque throughout the abdominal aorta. No aneurys m or stenosis. Extensive atherosclerotic plaque extends into the celiac axis and SMA and the renal ar teries. Component of [id number] stenosis at the origin of the SMA and celiac axis and also the renal arteries. Most significant involving the LEFT renal artery were stenosis is greater than 50%. I MA is still enhancing. RIGHT lower extremity arterial system: Heavy calcified plaque is near contiguous beginning at the [place] of the common iliac artery extending into the internal and external iliac arteries. Multifocal ar eas of narrowing approaching 50%. Bifurcation into the SFA and deep profunda is intact with extensive calcified plaque. 60% stenosis involving the proximal RIGHT SFA. Additional areas of moderate stenos is throughout the mid to distal SFA. Stenosis approaching 80% towards Nael's canal. Enhancing lumen is poorly visualized at mid Nael's canal. Multifocal areas of stenosis in the popliteal artery. Ca lcification continues below the knee. Heavily diseased three-vessel runoff to the ankle. Most signifi cant blood supply to the ankle is via the posterior tibial artery. LEFT lower extremity arterial system: Heavy calcified plaque continues through the common, internal a nd external iliac arteries. There is a focal outpouching consistent with a small aneurysm involving t he mid LEFT common iliac artery measuring 13 mm. This may be a small pseudoaneurysm. Multifocal areas of moderate stenosis throughout the external iliac artery. Greater than 70% stenosis origin LEFT SFA . Deep profunda is intact. Multifocal stenosis throughout the SFA with high-grade stenosis at multipl e levels. Severely diseased three-vessel runoff to the ankle with only intermittent visualization of the arteries. Posterior tibial artery is the most robust. Cirrhotic liver. Normal gallbladder. Normal spleen mild pancreatic atrophy with no duct dilatation. N o adrenal mass. No adenopathy or ascites. No GI tract obstruction. Mild bladder wall thickening. Blad betito wall thickening is diffuse. Marked muscle atrophy. Osteopenia. Mild anterior wedging of T12. Bone infarct mid RIGHT femoral diaphysis. Mild soft tissue thickening around the femoral heads, bilateral. Greatest on the RIGHT may be due to synovitis. CT/CT angio abd aorta runof [id number] IMPRESSION: 1. Severe central and peripheral arterial disease. Multifocal areas of signifi cant stenosis bilaterally in the lower extremities. 2. RIGHT SFA stenosis is estimated at 80% and Nael's canal. There are multip le additional stenoses of the lesser extent from the RIGHT iliac to the poplite al artery. 3. 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 4. At least 70% stenosis origin of the LEFT SFA. Additional multi focal areas of high-grade stenosis throughout the SFA. 5. Severe three-vessel disease runoff to the ankles bilaterally. Arteries are only intermittently visualized. The most robust runoff is via the posterior tib ial arteries. 6. Cirrhosis. 7. Advanced atherosclerotic plaque within the celiac axis, SMA and renal arter ies.
[2022-01-19 14:29] LABS: Blood Urea Nitrogen 16 mg/dL (8-23)
[2022-01-19] MEDS: iohexol 350 mg/mL 100 mL Btl IV (14:49)
== END 2022-01-19 13:32 | disposition home or self-care (01) ==
PROVIDERS: PCP Emergency Medicine Emergency Medical Services; Visit Provider Internal Medicine
DX: I73.9 Peripheral vascular disease, unspecified (principal); I70.8 Atherosclerosis of other arteries; K74.60 Unspecified cirrhosis of liver
CPT/HCPCS: 75635; 82565; 84520

== ENCOUNTER 2022-01-21 13:42 | Inpatient (IN) | payer OTHER, MEDICARE, SELFPAY ==
[2022-01-21] VITALS (9 sets, daily range): BP systolic 96–131; BP diastolic 50–87; PULSE 78–120; RESP 17–22; TEMP 36.7–36.9; O2SAT 92–100; BMI 25.8
--- NOTE | 2022-01-21 14:22 | ED_ITS ---
HPI - Skin/Abscess/Foreign Bdy General: Chief complaint: Skin/Abscess/Foreign Body Stated complaint: Infected foot Time Seen by Provider: 01/21/22 14:04 Source: patient Mode of arrival: ambulatory History of Present Illness: 81-year-old male presents emergency room with complaints of a infected toe. He said for last 2 to 3 days the tip of the left third toe is black and proximally is some redness and inflammation. He denies a ny fever sweats chills no significant pain. He is a former smoker and is a regular user of alcohol. He stopped smoking years ago he has poor blood flow to his legs he has been in the process of being evaluated for that. He denies any history of any heart disease. MD complaint: rash Onset (ago): minute(s) Location: L foot (Third toe) Severity: severe Quality: aching Relieving factors: none Exacerbating factors: none Associated symptoms: Deny arthralgias, chills, cough, fever(s), itching, myalgias, nausea, rigidity, short of breath or vomiting Treatments prior to arrival: none Review of Systems 2 Const: Denies: fever(s) or chills ENMT: Denies: throat pain, ear or mastoid pain, nasal discharge or nasal congestion Card: Denies: chest pain, edema, dyspnea on exertion or orthopnea Resp: Denies: dyspnea, productive cough or non-productive cough GI: Denies: abdominal pain, nausea or vomiting : Denies: flank pain, dysuria, urinary frequency or urinary urgency Skin/Breast: Denies: rash or pruritus [facility] ED PFSH: Medical History Amputated toe of left foot Chronic alcoholism Chronic hyponatremia Claudication Gangrene due to arterial insufficiency Greater trochanteric bursitis History of nonmelanoma skin cancer HTN (hypertension) Hypokalemia 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 Severe peripheral arterial disease Surgical History History of hip surgery Family History Other No pertinent family history Social History Smoking and tobacco status: former smoker Alcohol intake: current Alcohol type: beer, wine and hard liquor Lives independently: Yes Household members: none Housing: House History of recent travel: No Physical Exam Const: EXAM LIMITATIONS: altered mental status GENERAL APPEARANCE: cooperative and comfortable ORIENTATION/CONSCIOUSNESS: Yes awake, Yes oriented to person, Yes oriented to place and Yes oriented to time HENMT: COMMON NORMALS: normocephalic, atraumatic and hearing grossly normal bilaterally HEAD & SCALP: normocephalic and atraumatic Resp: COMMON NORMALS: normal respiratory effort, No retractions, No use of accessory muscles and clear to auscultation bilaterally AUSCULTATION: clear to auscultation bilaterally Cardio: COMMON NORMALS: regular rate, regular rhythm and No murmurs present (Cardio) RATE: regular rate RHYTHM: regular rhythm GI: COMMON NORMALS: Soft to palpation and No hepatosplenomegaly present AUSCULTATION: Yes normoactive bowel sounds PALPATION: Yes Soft to palpation, No Tenderness to palpation present (GI), No Guarding due to palpation present (GI) and Yes No hepatosplenomegaly present Extremity: OTHER: Left third toe is gangrenous nearly auto amputated on the distal half. Proximally is reddened and inflamed. Difficult to palpate any peripheral pulses in the left leg. Neuro: SENSORIUM/ORIENTATION: Yes oriented to person, Yes oriented to place an d Yes oriented to time Skin: COMMON NORMALS: no rashes or lesions noted GENERAL SKIN EXAM: no rashes or lesions noted Course Vital Signs: Vital signs: Vital Signs Temperature 98.0 F 01/23/22 14:41 Pulse Rate 89 01/23/22 14:41 Respiratory Rate 16 01/23/22 14:41 Blood Pressure 104/55 01/23/22 14:41 Pulse Oximetry 98 01/23/22 14:41 Oxygen Delivery Me thod 01/23/22 11:37 Oxygen Flow Rate 2 01/23/22 07:38 MDM - Skin/Abscess/Foreign Bdy Medicial Decision Making Left foot now has redness and erythema hot to the touch. Discussed with hospitalist and with Ortho will admit for cellulitis consult for amputation of left second toe. Medical Records I reviewed the patient's medical records. Lab Data I reviewed the patient's lab results. : 01/23/22 05:31 01/23/22 05:31 Radiology Impressions Foot X-Ray 01/21/22 14:26 Impression: 1. Absence of the distal portion of the distal phalanx the left second toe along with absence of the overlying soft tissue. 2. Fractures of the distal left third and fourth metatarsals. 3. Diffuse osteoporosis of the left foot. Foot CT 01/21/22 16:55 IMPRESSION: 1. Second distal phalanx apparent amputation with apparent bandage material seen over the distal portion of the 2nd middle phalanx with a skin defect, negative for acute appearing bony abnormality. 2. Scattered vascular calcifications. 3. Calcified heel spur. 4. First proximal phalangeal proximal medial aspect small avulsion fracture with involvement of the articular surface at the metatarsophalangeal joint. Laboratory Results WBC 13.6 10^3/uL (4.0-10.0) H 01/21/22 14:21 RBC 3.56 10^6/uL (4.1-5.3) L 01/21/22 14:21 Hgb 12.6 g/dL (11.7-16.6) 01/21/22 14:21 Hct 36.0 % (42.0-52.0) L 01/21/22 14:21 MCV 101.1 fl (80-94) H 01/21/22 14:21 MCH 35.4 pg (28.0-34.0) H 01/21/22 14:21 MCHC 35.0 g/dL (30.0-36.0) 01/21/22 14:21 RDW 12.5 % (12.1-15.1) 01/21/22 14: Plt Count 466 10^3/cmm (130-400) H 01/21/22 14:21 MPV 9.3 fL (7.4-10.4) 01/21/22 14:21 Neut % (Auto) 77.8 % 01/21/22 14: Lymph % (Auto) 12.4 % 01/21/22 14:21 [place] % (Auto) 7.7 % 01/21/22 14:21 Eos % (Auto) 0.5 % 01/21/22 14:21 Baso % (Auto) 0.6 % 01/21/22 14:21 Neut # (Auto) 10.58 10^3/uL (1.8-7.7) H 01/21/22 14:21 Lymph # (Auto) 1.7 10^3/uL (0.8-4.8) 01/21/22 14:21 [place] # (Auto) 1.1 10^3/uL (0.2-0.9) H 01/21/22 14:21 Eos # (Auto) 0.1 10^3/uL (0.0-0.8) 01/21/22 14:21 Baso # (Auto) 0.1 10^3/uL (0.0-0.1) 01/21/22 14:21 Nucleated RBC % (auto) 0 % 01/21/22 14:21 Nucleated RBCs # 0.0 /100WBC 01/21/22 14:21 ESR 8 mm/hr (0-10) 01/21/22 14:21 PT 14.30 SECONDS (12.1-14.9) 01/21/22 14:21 INR 1.08 (0.8-1.2) 01/21/22 14:21 APTT 32.0 SECONDS (23.9-36.7) 01/21/22 14:21 Sodium 125 mmol/L (136-145) L 01/21/22 14:21 Potassium 3.5 mmol/L (3.5-5.1) 01/21/22 14:21 Chloride 88 mmol/L (98-107) L 01/21/22 14:21 Carbon Dioxide 22 mmol/L (22-29) 01/21/22 14:21 Anion Gap 18.5 (5-19) 01/21/22 14:21 BUN 16 mg/dL (8-23) 01/21/22 14:21 Creatinine 1.1 mg/dL (0.7-1.2) 01/21/22 14:21 GFR Calculation Not Reportable 01/21/22 14:21 Glucose 134 mg/dL (65-115) H 01/21/22 14:21 Calculated Osmolality 263 mOsm/kg (285-295) L 01/21/22 14:21 Lactic Acid 1.8 mmol/L (0.5-2.2) 01/21/22 14:25 Calcium 8.4 mg/dL (8.5-10.5) L 01/21/22 14:21 Iron 129 ug/dL (59-158) 01/21/22 14:42 TIBC 150 mcg/dl 01/21/22 14:42 % Saturation 86.0 % (20-50) H 01/21/22 14:42 Unsat Iron Binding 21 ug/dL (112-347) L 01/21/22 14:42 Total Bilirubin 0.8 mg/dL (0.15-1.2) 01/21/22 14:21 AST 46 U/L (0-40) H 01/21/22 14:21 ALT 29 U/L (0-41) 01/21/22 14:21 Alkaline Phosphatase 157 U/L (40-130) H 01/21/22 14:21 C-Reactive Protein 26.6 mg/L (0.0-4.9) H 01/21/22 14:42 Total Protein 6.5 g/dL (6.6-8.7) L 01/21/22 14:21 Albumin 3.1 g/dL (3.5-5.2) L 01/21/22 14:21 Globulin 3.4 g/dL (1.3-4.6) 01/21/22 14:21 Vitamin B12 473 pg/mL (232-1245) 01/21/22 14:42 Folate 16.8 ng/mL (4.5-32.2) 01/21/22 14:42 Procalcitonin 0.18 ng/mL (0-0.5) 01/21/22 14:42 TSH 4.96 uIU/mL (0.27-4.20) H 01/21/22 14:42 Ethyl Alcohol < 10 mg/dL (0-10) 01/21/22 14:42 Discharge Plan Discharge Patient Disposition: Admitted As Inpatient Admit Provider: Alexander Patton Clinical Impression: Cellulitis, Gangrene due to arterial insufficiency, Severe peripheral arterial disease Condition: Stable Discharge Diet: Cardiac Discharge Activity: Resume usual activity and Increase activity as tolerated Coding Level of Care Code ED Lumber Tripper for Lenig Fwd Exam Detailed
--- NOTE | 2022-01-21 14:26 | XR_ITS ---
WS: [id number] Left foot, 3 views, 01/21/2022 Clinical Data: L 3rf toe gangrene Comparison: None. Findings: There is absence of the distal portion of the distal phalanx of the left second toe. There is apparen t loss of soft tissue covering the distal phalanx of the left second toe. There are fractures of the heads of the left third and fourth metacarpals of indeterminate age. There is osteoporosis of the left foot. Vascular calcification is present. There is a plantar spur. XR/XR foot LT min 3V* [id number] Impression: 1. Absence of the distal portion of the distal phalanx the left second toe jesus manuel g with absence of the overlying soft tissue. 2. Fractures of the distal left third and fourth metatarsals. 3. Diffuse osteoporosis of the left foot.
--- NOTE | 2022-01-21 14:28 | USCV_ITS ---
Reginald Pelaez Age: 81 Gender: M : 1940 Exam Date: 01/21/2022 15:04 Ordering Phys: Clemente Inman DO Technologist: Ryan Biswas Exam Location: [facility] [place] Indication: black third digit on lt foot Risk Factors: smoker Previous Vascular Surgery: RIGHT LEFT BP: 130.0 / 80.00 BP: 130.0/ 80.00 0 0 Waveform Velocity (cm/s) Velocity (cm/s) Waveform Iliac Prox 55.0 Monophasic Iliac Mid 53.0 Monophasic Iliac Distal Monophasic 42.0 PREPRESS TECHNICIAN 54.0 Monophasic SFA Prox 53.0 Monophasic SFA Mid 55.0 Monophasic SFA Dist 55.0 Monophasic POP 52.0 Monophasic MACHINIST GENERAL 18.0 Monophasic DPA 51.0 Monophasic JAMES 0.5 FINDINGS Resting JAMES of 0.5 on the left side. Monophasic waveforms throughout Diminished Doppler velocity in the posterior tibial artery CONCLUSIONS 1. Abnormal resting JAMES, suggestive of severe peripheral artery disease on the left side. 2. 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
--- NOTE | 2022-01-21 15:01 | PC.PHAR ---
pt states he takes care of his own medications-pt states his atenolol 50mg daily was dced ext med history shows last filled 09/09/21 30d/s-pt states only taking multivitamin and lisinopril-hctz daily
[2022-01-21 15:05] LABS: Alanine Aminotransferase 29 U/L (0-41); Albumin Level 3.1 g/dL (3.5-5.2); Alkaline Phosphatase 157 U/L (40-130); Anion Gap 18.5 (5-19); Aspartate Amino Transferase 46 U/L (0-40); Blood Urea Nitrogen 16 mg/dL (8-23); Calcium 8.4 mg/dL (8.5-10.5); Carbon Dioxide 22 mmol/L (22-29); Chloride 88 mmol/L (98-107); Globulin 3.4 g/dL (1.3-4.6); Glucose 134 mg/dL (65-115); Osmolality Calculated 263 mOsm/kg (285-295); Potassium 3.5 mmol/L (3.5-5.1); Sodium 125 mmol/L (136-145); Total Bilirubin 0.8 mg/dL (0.15-1.2); Total Protein 6.5 g/dL (6.6-8.7)
[2022-01-21] MEDS: vancomycin 1,000 MG in sodium chloride 0.9% 250 ML 250 MG IV (15:12)
[2022-01-21 15:32] LABS: Basophils # 0.1 10^3/uL (0.0-0.1); Basophils % 0.6 %; Eosinophils # 0.1 10^3/uL (0.0-0.8); Eosinophils % 0.5 %; Hemoglobin 12.6 g/dL (11.7-16.6); Lymphocytes # 1.7 10^3/uL (0.8-4.8); Lymphocytes % 12.4 %; Mean Corpuscular Hemoglobin 35.4 pg (28.0-34.0); Mean Corpuscular Volume 101.1 fl (80-94); Mean Platelet Volume 9.3 fL (7.4-10.4); Monocytes # 1.1 10^3/uL (0.2-0.9); Monocytes % 7.7 %; Neutrophils # 10.58 10^3/uL (1.8-7.7); Neutrophils % 77.8 %; Nucleated Red Blood Cells % 0 %; Platelet Count 466 10^3/cmm (130-400); Red Blood Count 3.56 10^6/uL (4.1-5.3); Red Cell Distribution Width 12.5 % (12.1-15.1); White Blood Count 13.6 10^3/uL (4.0-10.0)
[2022-01-21 15:38] LABS: INR 1.08 (0.8-1.2)
--- NOTE | 2022-01-21 16:24 | PM.HP ---
Providers/Chief Complaint Primary Care Provider: Sachin Gallagher DO Chief Complaint: Infected foot History of Present Illness Reginald Pelaez is a 81 year old male with history of hypertension, chronic alcoholism, claudication from severe peripheral artery disease presented to the ER today because of discoloration of second toe on the left foot. As per the patient he noticed changes only for last 3 to 4 days. Denies any pain but does complain of decreased sensation in both of his feet. Denies any trauma. States he drinks at least 3 to 4 glasses of whiskey every night. Denies any history of withdrawal seizures. In the ER he was found to have blackish to bluish discoloration of the second toe with partial amputation. He was found to be in atrial fibrillation with rapid ventricular response for which he received 5 mg of IV metoprolol followed by 25 mg of oral. Review of Systems General: Reports: 10 or more systems reviewed and unremarkable except in HPI and below Const: Denies: fever(s), chills, body aches, change in appetite, change in weight, malaise, night sweats, diaphoresis, change in sleep pattern, daytime sleepiness or snoring Eyes: Denies: change in vision, blurry vision, photophobia, eye discomfort or eye discharge ENMT: Denies: throat pain, enlarged tonsils, hoarseness, mouth pain, oral sores, dry mouth, tinnitus, nasal congestion or post nasal drip Card: Denies: chest pain, palpitations, irregular heart rhythm, edema, swelling of feet/ankles, lightheadedness, syncope, pre-syncope, dyspnea on exertion, orthopnea, leg pain with exertion or acrocyanosis Resp: Denies: dyspnea, productive cough, non-productive cough, wheezing, stridor, pain on inspiration, change in phlegm color, hemoptysis or chest congestion GI: Denies: abdominal pain, nausea, vomiting, hematemesis, coffee ground emesis, dysphagia, heartburn, diarrhea, constipation, bloating, GI cramping, change in bowel habits, pain on defecation, hematochezia or melena : Denies: flank pain, difficulty urinating, dysuria, urinary frequency, urinary urgency, urinary hesitancy, urinary dribbling, difficulty starting urination, change in urine stream, nocturia or hematuria Musc: Denies: neck pain, back pain, extremity pain, joint pain, joint swelling, joint redness, joint stiffness or limited range of motion Neuro: Denies: headache(s), numbness in extremities, weakness in extremities, sensory changes, lack of coordination, difficulty walking, frequent falls, dizziness, vertigo, confusion, Slurred speech present, difficulty communicating thoughts or seizure-like activity Psych: Denies: anxiety, depression, mood swings, panic attacks, hopelessness or irritability Endo: Denies: polyuria, polydipsia, tired all the time, cold intolerance, excessive sweating, flushing or heat intolerance Brien/Lymph: Denies: easy bruising or easy bleeding All/Imm: Denies: tongue swelling, facial swelling or acute wheezing Medications/Allergies Home Medications Medication Instructions Recorded Confirmed Last Taken Type lisinopril 20 1 tab PO QAM 11/13/21 01/21/22 01/21/22 History mg-hydrochlorothiazide 25 mg tablet multivitamin 1 tab PO DAILY 01/21/22 01/21/22 Unknown History Allergies Allergy/AdvReac Type Severity Reaction Status Date / Time No Known Allergies Allergy Verified 01/21/22 15:01 PFSH Acute PFSH: Medical History (Updated 01/21/22 @ 16:59 by Alexander Patton MD) Chronic alcoholism Chronic hyponatremia Claudication Greater trochanteric bursitis History of nonmelanoma skin cancer HTN (hypertension) 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 Severe peripheral arterial disease Surgical History History of hip surgery Family History Other No pertinent family history Social History (Updated 01/21/22 @ 17:00 by Alexander Patton MD) Smoking and tobacco status: former smoker Alcohol intake: current Alcohol type: beer, wine and hard liquor Substance/Drug Use: never Lives independently: Yes Household members: none Housing: House History of recent travel: No Vitals/I&O/Wt Last Vital Signs Temp 98.0 F 01/21/22 13:47 Pulse 104 H 01/21/22 15:30 Resp 20 H 01/21/22 15:30 BP 126/87 01/21/22 15:30 Pulse Ox 100 01/21/22 15:30 O2 Del Method 01/21/22 15:17 Weight last 48 hrs Weight 79.379 kg Physical Exam Narrative: General: No acute distress, AO x3, pleasant, hard of hearing HEENT: PERRLA, pupils bilaterally equal and reactive Chest: Normal vesicular bilateral breath sounds, equal air entry bilaterally CVS: S1-S2 irregularly irregular, no murmurs, no tachycardia, no gallops, no rubs Abdomen: Soft, nontender, no organomegaly, bowel sounds present, morbidly obese Neuro: No focal deficits, no facial deformity, AO x3, power 5/5 in all limbs Extremity: Right leg cool to touch, left leg below knee warm to touch, erythema present around the base of second toe along with whitish discoloration of the base of second toe and bluish blackish discoloration and partial autoamputation of the tip of second toe Data : 01/21/22 14:21 01/21/22 14:21 Other Labs: Radiology Impressions Foot X-Ray 01/21/22 14:26 Impression: 1. Absence of the distal portion of the distal phalanx the left second toe along with absence of the overlying soft tissue. 2. Fractures of the distal left third and fourth metatarsals. 3. Diffuse osteoporosis of the left foot. Laboratory Results WBC 13.6 10^3/uL (4.0-10.0) H 01/21/22 14:21 RBC 3.56 10^6/uL (4.1-5.3) L 01/21/22 14:21 Hgb 12.6 g/dL (11.7-16.6) 01/21/22 14:21 Hct 36.0 % (42.0-52.0) L 01/21/22 14:21 MCV 101.1 fl (80-94) H 01/21/22 14:21 MCH 35.4 pg (28.0-34.0) H 01/21/22 14:21 MCHC 35.0 g/dL (30.0-36.0) 01/21/22 14:21 RDW 12.5 % (12.1-15.1) 01/21/22 14:21 Plt Count 466 10^3/cmm (130-400) H 01/21/22 14:21 MPV 9.3 fL (7.4-10.4) 01/21/22 14:21 Neut % (Auto) 77.8 % 01/21/22 14:21 Lymph % (Auto) 12.4 % 01/21/22 14:21 Juab % (Auto) 7.7 % 01/21/22 14:21 Eos % (Auto) 0.5 % 01/21/22 14:21 Baso % (Auto) 0.6 % 01/21/22 14:21 Neut # (Auto) 10.58 10^3/uL (1.8-7.7) H 01/21/22 14:21 Lymph # (Auto) 1.7 10^3/uL (0.8-4.8) 01/21/22 14:21 [place] # (Auto) 1.1 10^3/uL (0.2-0.9) H 01/21/22 14:21 Eos # (Auto) 0.1 10^3/uL (0.0-0.8) 01/21/22 14:21 Baso # (Auto) 0.1 10^3/uL (0.0-0.1) 01/21/22 14:21 Nucleated RBC % (auto) 0 % 01/21/22 14:21 Nucleated RBCs # 0.0 /100WBC 01/21/22 14:21 PT 14.30 SECONDS (12.1-14.9) 01/21/22 14:21 INR 1.08 (0.8-1.2) 01/21/22 14:21 APTT 32.0 SECONDS (23.9-36.7) 01/21/22 14:21 Sodium 125 mmol/L (136-145) L 01/21/22 14:21 Potassium 3.5 mmol/L (3.5-5.1) 01/21/22 14:21 Chloride 88 mmol/L (98-107) L 01/21/22 14:21 Carbon Dioxide 22 mmol/L (22-29) 01/21/22 14:21 Anion Gap 18.5 (5-19) 01/21/22 14:21 BUN 16 mg/dL (8-23) 01/21/22 14:21 Creatinine 1.1 mg/dL (0.7-1.2) 01/21/22 14:21 GFR Calculation Not Reportable 01/21/22 14:21 Glucose 134 mg/dL (65-115) H 01/21/22 14:21 Calculated Osmolality 263 mOsm/kg (285-295) L 01/21/22 14:21 Calcium 8.4 mg/dL (8.5-10.5) L 01/21/22 14:21 Total Bilirubin 0.8 mg/dL (0.15-1.2) 01/21/22 14:21 AST 46 U/L (0-40) H 01/21/22 14:21 ALT 29 U/L (0-41) 01/21/22 14:21 Alkaline Phosphatase 157 U/L (40-130) H 01/21/22 14:21 Total Protein 6.5 g/dL (6.6-8.7) L 01/21/22 14:21 Albumin 3.1 g/dL (3.5-5.2) L 01/21/22 14:21 Globulin 3.4 g/dL (1.3-4.6) 01/21/22 14:21 Micro: Microbiology 01/21/22 14:55 Blood Culture - Preliminary Blood SPECIMEN COLLECTED 01/21/22 14:52 Blood Culture - Preliminary Blood SPECIMEN COLLECTED A&P Assessment and plan (1) 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 Will need further amputation. Orthopedic consulted from the ER. Most likely will need restorationism of some sort of blood supply to the foot prior to amputation. Check ESR, CRP, CT foot. Blood cultures sent. Status: Acute (2) Cellulitis of second toe of left foot: Follow-up culture results. Will request for OR cultures for amputation. For now start on vancomycin, Zosyn. Check MRSA swab. Status: Acute (3) Severe peripheral arterial disease: CTA runoff results appreciated discussed in detail with Dr. Bledsoe. Will consult for further assessment and possible revascularization. Start on aspirin. Hold off on starting Plavix for now. Check A1c, lipid panel. Status: Acute (4) Afib: New diagnosis. Patient slightly dehydrated. Normal saline at 75 cc/h. Check echocardiogram. Avoid metoprolol given severe peripheral artery disease. Oral Cardizem 30 mg every 6 hourly. Uptitrate accordingly. Telemetry. Status: Acute (5) Chronic alcoholism: 3 to 4 glasses of whiskey nightly. CIWA protocol. Thiamine, folic acid Status: Acute (6) Chronic hyponatremia: Baseline sodium 1 20-1 25. 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 Continue to monitor. Status: Acute Plan Check iron panel, alcohol level, CRP, drug screen, lactate, TSH, folate, lipid profile, MRSA swab, procalcitonin, iron panel, urinalysis, vitamin B12 level. Analgesia: Tylenol, morphine 1 mg every 4 hours as needed Glycemic control: Not needed. Check A1c Nutrition: Cardiac diet CODE STATUS: Full code PUD prophylaxis: Protonix DVT prophylaxis: Heparin 5000 every 12 hourly Discharge planning: Home with possible home health on discharge as patient most likely would be partial to nonweightbearing to the foot Admit to CSU. Patient most likely needs peripheral angiogram and balloon angioplasty along with possible need of drip for atrial fibrillation This documentation was created by [employer] sanitarian aide software. Every effort was made to ensure accuracy of sanitarian aide. Any obvious errors or omissions should be clarified with the author of the document. Attestations Medical Necessity Statement*: Admission for more than 2 midnights for management of gangrene due to pad, A. fib, chronic alcoholism Time Spent in Patient Care: Greater than 35 minutes Coding Level of Care Code Acute Communications Program Manager for Chg Fwd Diagnoses Gangrene due to arterial insufficiency I77.1; I96 Cellulitis of second toe of left foot L03.032 Severe peripheral arterial disease I73.9 Afib I48.91 Chronic alcoholism F10.20 Chronic hyponatremia E87.1
[2022-01-21] MEDS: metoprolol tartrate 1 mg/1 mL SDV 5 mL 5 MG IVP (16:33)
[2022-01-21] MEDS: metoprolol tartrate 25 mg Tablet PO (16:33)
--- NOTE | 2022-01-21 16:40 | USCV_ITS ---
Reginald Pelaez Age: 81 Gender: M : 1940 Exam Date: 01/21/2022 19:24 Ordering Phys: Alexander Patton MD Technologist: MOHIT Exam Location: [facility] [place] Indication: CAD. Patient states no history of cardiac intervention. BP: 122 / 63 HR: 76 Rhythm: Sinus Technical Quality: Adequate MEASUREMENTS (Male / Female) Normal Values 2D ECHO LV Diastolic Diameter PLAX 4.7 cm 4.2 - 5.9 / 3.9 - 5.3 cm LV Systolic Diameter PLAX 3.2 cm IVS Diastolic Thickness 1.3 cm 0.6 - 1.0 / 0.6 - 0.9 cm IVS Systolic Thickness 1.6 cm LVPW Diastolic Thickness 1.5 cm 0.6 - 1.0 / 0.6 - 0.9 cm LVPW Systolic Thickness 1.8 cm LVOT Diameter 2.0 cm LV Ejection Fraction 2D Teich 58.2 % LV Ejection Fraction MOD 2C 66.0 % LV Ejection Fraction 2C AL 66.7 % LA Diameter 3.9 cm LA Width 3.7 cm LA Height 5.6 cm RA Width 4.1 cm RA Height 4.8 cm Aorta at Sinotubular Diameter 3.1 cm IVC Diameter 1.8 cm M-MODE Aortic Annulus Diameter 3.4 cm LA Ao Ratio MM 1.2 MV E Point Septal Separation 0.4 cm DOPPLER AV Peak Velocity 133.0 cm/s LVOT Peak Velocity 65.0 cm/s AV Area Cont Eq vti 1.8 cm squared AV Area Cont Eq pk 1.6 cm squared MV Area PHT 2.0 cm squared Mitral E to A Ratio 0.6 MV E' Velocity 26.0 cm/s Mitral E to MV E' Ratio 3.9 Mitral E to LV E' Lateral Ratio 3.2 Mitral E to LV E' Septal Ratio 5.0 TR Peak Velocity 243.0 cm/s TR Peak Gradient 23.6 mmHg TV Peak E Velocity 30.0 cm/s Right Atrial Pressure 5.0 mmHg Pulmonary Artery Systolic Pressu 28.6 mmHg PV Peak Velocity 93.0 cm/s RV Acceleration Time 0.1 s RV Ejection Time 0.3 s RV AcT/ET 0.4 FINDINGS Left Ventricle Normal left ventricular size and systolic function, EF55 %. No regional wall motion abnormalities. Right Ventricle Normal right ventricular size and systolic function. Right Atrium Mildly increased right atrial size. Left Atrium Mildly increased left atrial size. Mitral Valve Thickened mitral valve. Mild mitral annular calcification. Mild- moderate mitral valve regurgitation. Aortic Valve Thickened aortic valve. Tricuspid Valve [id number] tricuspid valve regurgitation. Pulmonic Valve Trace pulmonary valve regurgitation. Pericardium No pericardial effusion. Echo-free space posteriorly -possible moderate pleural effusion on the left side Aorta Normal aortic annulus size. IVC Inferior vena cava not visualized. CONCLUSIONS Normal left ventricular size and systolic function, EF55 %. No regional wall motion abnormalities. Mild biatrial enlargementThickened mitral valve. Mild mitral annular calcification. Mild-moderate mitral valve regurgitation. Thickened aortic valve. [id number] tricuspid valve regurgitation. Trace pulmonary valve regurgitation. Estimated pulmonary artery peak systolic pressure 29 mmHg There are no intracardiac masses. There is no pericardial effusion. Possible moderate pleural effusion on the left side No similar previous studies are available for comparison Dr Antonio Apodaca MD [facility] (Electronically Signed) Final Date: 21 January 2022 21:29 S
--- NOTE | 2022-01-21 16:55 | CTR_ITS ---
PROCEDURE INFORMATION: Exam: CT Left Lower Extremity Without Contrast, Foot Exam date and time: 01/21/2022 5:44 PM Age: 81 years old Clinical indication: Other: Black 2nd toe x 4 days; Additional info: 2nd toe osteo vs abscess TECHNIQUE: Imaging protocol: CT of the Left lower extremity without contrast was performed. Exam focused on the foot. Radiation optimization: All CT scans at this facility use at least one of these dose optimization techniques: automated exposure control; mA and/or kV adjustment per patient size (includes targeted exams where dose is matched to clinical indication); or iterative reconstruction. COMPARISON: CR XR foot LT min 3V* [id number] 01/21/2022 2:34 PM RADIATION DOSE METRICS: Total DLP (mGy-cm): 163.04 FINDINGS: Bones/joints: Second distal phalanx apparent amputation with apparent bandage material seen over the distal portion of the 2nd middle phalanx with a skin defect, negative for acute appearing bony abnormality. Calcified heel spur. First proximal phalangeal proximal medial aspect small avulsion fracture with involvement of the articular surface at the metatarsophalangeal joint. Soft tissues: Normal. Vasculature: Scattered vascular calcifications. CT/CT foot LT wo con* [id number] IMPRESSION: 1. Second distal phalanx apparent amputation with apparent bandage material seen over the distal portion of the 2nd middle phalanx with a skin defect, negative for acute appearing bony abnormality. 2. Scattered vascular calcifications. 3. Calcified heel spur. 4. First proximal phalangeal proximal medial aspect small avulsion fracture with involvement of the articular surface at the metatarsophalangeal joint.
[2022-01-21] MEDS: piperacillin-tazobactam 3.375 GM in sodium chloride 0.9% (plus) 50 ML IV (17:20)
[2022-01-21] MEDS: sodium chloride 0.9% 1,000 ML 75 ML IV (17:20)
[2022-01-21] MEDS: dilTIAZem 30 mg Tablet PO ×2 (17:21→21:23)
[2022-01-21] MEDS: docusate sodium 100 mg Capsule PO (17:21)
[2022-01-21] MEDS: heparin 5,000 unit/mL INJ 1 mL 5000 UNIT SUBCUT (17:21)
--- NOTE | 2022-01-21 17:25 | ECG_ITS ---
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 Measurements Intervals [place] Rate: 104 P: SD: QRS: 37 QRSD: 106 T: 48 QT: 358 QTc: 471 Interpretive Statements Sinus rhythm with frequent PACs and PVCs VENTRICULAR PREMATURE COMPLEXES ABNORMAL RHYTHM ECG No previous ECG available for comparison Electronically Signed On 01-23-2022 9:26:16 CDT by Dean Bledsoe M.D. [id number]
[2022-01-21 17:40] LABS: Add Urine Microscopic? NO; Charge for UA Resulting for Rev
--- NOTE | 2022-01-21 17:54 | PC.NURSE ---
Report called to MRAJORIE Rosas
[2022-01-21 18:05] LABS: Amphetamines Screen Urine Negative (Negative); Barbiturates Screen Urine Negative (Negative); Benzodiazepines Screen Urine Negative (Negative); Cocaine Screen Urine Negative (Negative); Opiate Screen Urine Negative (Negative); PCP Screen Urine Negative (Negative); THC Screen Urine Negative (Negative)
--- NOTE | 2022-01-21 18:11 | PM.CONSULT ---
Providers/Reason For Consult Consulting Physician/Specialty*: Cardiovascular disease Reason for Consult*: Critical left lower extremity ischemia Requesting Physician: Hospitalist Attending Physician: Alexander Patton MD Primary Care Provider: Sachin Gallagher DO History of Present Illness History of Present Illness Reginald Pelaez is a 81 year old male who came to the emergency room today for a black left toe. He has a history of peripheral arterial disease and actually saw Dr. Marx in our office a couple weeks ago. A CT angio was ordered and was done just 2 days ago. It revealed severe bilateral lower extremity arterial disease which is not a surprise. He has a 80% superficial femoral artery stenosis on the right at Nael's canal. There are multiple others from the common iliac all the way to the popliteal. 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 On the left, there is a 70% ostial left superficial femoral artery stenosis. There are additional high-grade left superficial femoral artery stenoses all the way to the popliteal. There is severe three-vessel disease in both lower extremities below the knee. There is probably only one-vessel runoff below each knee. There are also advanced plaques in the celiac, superior mesenteric artery and the renals. Patient noticed that his left second toe was turning colors yesterday or the day before. [facility] 1 look [facility] and sent him over here. He has a black gangrenous left second toe. He does not have any pain in the leg. His leg is otherwise warm. There are other complicating illnesses. He is an alcoholic with cirrhosis of the liver and chronic hyponatremia. His favorite beverage is [place]. He also has a history of hypertension. He has had cancer of the glottis with radiation therapy. Previously he was a smoker and has COPD. He is also had multiple nonmelanoma skin cancers. There was some question as to whether or not he had atrial fibrillation in the emergency room. As I look at his monitors and his EKG it appears to me as though he has an underlying sinus rhythm with PACs and PVCs. I do not see evidence of atrial fibrillation so far. Review of Systems Narrative: Is his review of systems is negative other than the history of present illness. Medications/Allergies Home Medications Medication Instructions Recorded Confirmed Last Taken Type lisinopril 20 1 tab PO QAM 11/13/21 01/21/22 01/21/22 History mg-hydrochlorothiazide 25 mg tablet multivitamin 1 tab PO DAILY 01/21/22 01/21/22 Unknown History Allergies Allergy/AdvReac Type Severity Reaction Status Date / Time No Known Allergies Allergy Verified 01/21/22 15:01 Current Medications Generic Name Dose Route Start Last Admin Trade Name Freq PRN Reason Stop Dose Admin Diltiazem HCl 30 mg 01/21/22 17:00 01/21/22 17:21 Diltiazem 30 Mg Tablet PO 30 mg QID LINDA Administration Docusate Sodium 100 mg 01/21/22 18:00 01/21/22 17:21 Docusate Sodium 100 Mg Capsule PO 100 mg BID LINDA Administration Heparin Sodium (Porcine) 5,000 unit 01/21/22 16:45 01/21/22 17:21 Heparin 5,000 Unit/Ml Inj 1 Ml SUBCUT 5,000 unit Q12H LINDA Administration Sodium Chloride 1,000 mls @ 75 mls/hr 01/21/22 16:45 01/21/22 17:20 Sodium Chloride 0.9% IV 75 mls/hr .[id number] LINDA Administration Piperacillin Sod/Tazobactam 50 mls @ 12.5 mls/hr 01/21/22 17:00 01/21/22 17:20 Sod 3.375 gm/ Sodium Chloride IV 12.5 mls/hr Q8H LINDA Administration PFSH Acute PFSH: Medical History (Updated 01/21/22 @ 18:18 by Dean Bledsoe MD) Chronic alcoholism Chronic hyponatremia Claudication Greater trochanteric bursitis History of nonmelanoma skin cancer HTN (hypertension) 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 Severe peripheral arterial disease Surgical History History of hip surgery Family History Other No pertinent family history Social History (Updated 01/21/22 @ 17:00 by Alexander Patton MD) Smoking and tobacco status: former smoker Alcohol intake: current Alcohol type: beer, wine and hard liquor Substance/Drug Use: never Lives independently: Yes Household members: none Housing: House History of recent travel: No Vitals/I&O/Wt Last Vital Signs Temp 98.0 F 01/21/22 13:47 Pulse 82 01/21/22 17:00 Resp 21 H 01/21/22 17:00 BP 122/63 01/21/22 17:00 Pulse Ox 94 01/21/22 17:00 O2 Del Method 01/21/22 17:00 01/21/22 01/21/22 01/21/22 06:59 14:59 22:59 Intake Total 250 / 250 Balance 250 / 250 Weight last 48 hrs Weight 175 lb Physical Exam Narrative: GENERAL: In general he is awake and alert lying flat on the gurney in the emergency room HEENT: Exam within normal limits. NECK: Supple without jugular vein distention. The carotid upstroke is normal without bruits. BACK: Exam normal. LUNGS: Clear. HEART: Regular rate and rhythm. ABDOMEN: Benign without organomegaly or tenderness. EXTREMITIES: No edema. The left second toe is black and gangrenous. The remainder of the foot is mildly discolored with some dependent rubor. The entire foot and lower extremity on the left is warm. There is a left femoral pulse however there are no pulses below the left groin. There are also no pulses below the right groin. NEUROLOGIC: Exam normal. SKIN: Unremarkable. Data : 01/21/22 14:21 01/21/22 14:21 Micro: Microbiology 01/21/22 14:55 Blood Culture - Preliminary Blood SPECIMEN COLLECTED 01/21/22 14:52 Blood Culture - Preliminary Blood SPECIMEN COLLECTED A&P Assessment and plan (1) Chronic hyponatremia: Status: Acute (2) Chronic alcoholism: Status: Acute (3) Cellulitis of second toe of left foot: Status: Acute (4) Gangrene due to arterial insufficiency: Status: Acute (5) Severe peripheral arterial disease: Status: Acute (6) HTN (hypertension): Status: Acute (7) History of nonmelanoma skin cancer: Status: Acute (8) Malignant neoplasm of glottis: Status: Acute Plan He has critical limb ischemia of the left lower extremity with a gangrenous left second toe. He needs angiography to assess the vasculature and probably intervention to the area of the left superficial femoral artery. I will schedule this for 12 noon tomorrow. He will be n.p.o. after breakfast tomorrow. Consult Attestations Medical Necessity Statement: Hospitalization indicated for critical limb ischemia of the left lower extremity. Coding Level of Care Code New Pt Acute Evaporator Supervisor for Chg Fwd Patient Type New History Detailed Exam Detailed Medical Decision Making Moderate Complexity Diagnoses Chronic hyponatremia E87.1 Chronic alcoholism F10.20 Cellulitis of second toe of left foot L03.032 Gangrene due to arterial insufficiency I77.1; I96 Severe peripheral arterial disease I73.9 HTN (hypertension) I10 History of nonmelanoma skin cancer Z85.828 Malignant neoplasm of glottis C32.0
[2022-01-21 18:13] LABS: Bilirubin Urine Neg (Negative); Blood Urine Neg (Negative); Glucose Urine UA Norm (Normal); Ketones Urine Negative (Negative); Leukocyte Esterase Urine Negative (Negative); Nitrate Urine Negative (Negative); Protein Urine Neg (Negative); Urine Appearance Clear (CLEAR); Urine Color Yellow (Yellow); Urobilinogen Urine Norm (Negative); pH Urine 5 (5-7)
[2022-01-21 18:23] LABS: Erythrocyte Sedimentation Rate 8 mm/hr (0-10)
[2022-01-21 18:37] LABS: Iron 129 ug/dL (59-158); Total Iron Binding Capacity 150 mcg/dl; Unsaturated Iron Binding 21 ug/dL (112-347)
[2022-01-21 18:48] LABS: Folate Level 16.8 ng/mL (4.5-32.2)
[2022-01-21 18:49] LABS: Lactic Sepsis W/Reflex 1.8 mmol/L (0.5-2.2)
[2022-01-21 18:53] LABS: Procalcitonin 0.18 ng/mL (0-0.5); Vitamin B12 473 pg/mL (232-1245)
[2022-01-21 19:28] LABS: C Reactive Protein 26.6 mg/L (0.0-4.9); Thyroid Stimulating Hormone 4.96 uIU/mL (0.27-4.20)
[2022-01-21 20:26] LABS: Alcohol Level < 10 mg/dL (0-10)
[2022-01-21] MEDS: ferrous gluconate 324 mg Tablet PO (21:24)
[2022-01-21] MEDS: LORazepam 2 mg Tablet PO (21:24)
[2022-01-22] VITALS (53 sets, daily range): BP systolic 80–143; BP diastolic 39–91; PULSE 64–113; RESP 13–28; TEMP 36.3–37; O2SAT 87–99
[2022-01-22] MEDS: piperacillin-tazobactam 3.375 GM in sodium chloride 0.9% (plus) 50 ML IV ×2 (01:16→09:03)
[2022-01-22 05:00] LABS: Basophils # 0.1 10^3/uL (0.0-0.1); Basophils % 0.7 %; Eosinophils # 0.1 10^3/uL (0.0-0.8); Eosinophils % 1.4 %; Hemoglobin 11.8 g/dL (11.7-16.6); Lymphocytes # 1.7 10^3/uL (0.8-4.8); Lymphocytes % 17.4 %; Mean Corpuscular HGB Conc 36.9 g/dL (30.0-36.0); Mean Corpuscular Hemoglobin 37.6 pg (28.0-34.0); Mean Corpuscular Volume 101.9 fl (80-94); Monocytes # 0.7 10^3/uL (0.2-0.9); Monocytes % 6.9 %; Neutrophils # 7.23 10^3/uL (1.8-7.7); Neutrophils % 72.8 %; Nucleated Red Blood Cells % 0 %; Platelet Count 401 10^3/cmm (130-400); Red Blood Count 3.14 10^6/uL (4.1-5.3); Red Cell Distribution Width 12.4 % (12.1-15.1); White Blood Count 9.9 10^3/uL (4.0-10.0)
[2022-01-22] MEDS: sodium chloride 0.9% 1,000 ML 75 ML IV (05:01)
[2022-01-22] MEDS: heparin 5,000 unit/mL INJ 1 mL 5000 UNIT SUBCUT (05:01)
[2022-01-22 05:28] LABS: Alanine Aminotransferase 32 U/L (0-41); Albumin Level 2.7 g/dL (3.5-5.2); Alkaline Phosphatase 151 U/L (40-130); Aspartate Amino Transferase 49 U/L (0-40); Blood Urea Nitrogen 18 mg/dL (8-23); Calcium 7.9 mg/dL (8.5-10.5); Carbon Dioxide 25 mmol/L (22-29); Chloride 92 mmol/L (98-107); Globulin 2.8 g/dL (1.3-4.6); Glucose 96 mg/dL (65-115); Osmolality Calculated 266 mOsm/kg (285-295); Sodium 127 mmol/L (136-145); Total Protein 5.5 g/dL (6.6-8.7)
[2022-01-22 05:33] LABS: Magnesium 1.3 mg/dL (1.7-2.3)
[2022-01-22 05:34] LABS: Chol HDL Ratio 2.43 mg/dL (1.0-5.00); Cholesterol 112 mg/dL (0-200); HDL Cholesterol 46 mg/dL (60-100); LDL Cholesterol Calculated 52 mg/dL (50-129); Triglycerides 70 mg/dL (0-150); VLDL Cholestrol Calculation 14 mg/dL (0-30)
[2022-01-22 05:59] LABS: Estmated Average Glucose 105; Hemoglobin A1C 5.3 % (4.0-6.0)
--- NOTE | 2022-01-22 06:12 | XACV_ITS ---
Ht: 175 cm Wt: 79 kg BSA: 1.98 m2 Any Known Allergies: No known allergies Gender: Male : 1940 Exam Type: Invasive Peripheral Vascular Procedure(s): Procedure Description: Peripheral Cath Diagnostic Procedure Procedure Description: Abdominal aortic angiography Procedure Description: Lower extremities' angiography Procedure Description: Peripheral vascular Intervention Procedure Description: PV Balloon Procedure Description: PV Stent Exam Priority: Routine CROKE, Rakan; Abdominal Diagnostic Findings Distal abdominal aorta: Patent. Lower Extremity Diagnostic Findings Left common/External Iliac Artery:80% stenosis. Left Ostial Superficial Femoral Artery: 80% stenosis, ostial. INDICATION: Critical limb ischemia/ Gangrenous left foot toe. 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 At the junction of external and common iliac artery there is severe, heavily calcified 80% stenosis. Left common iliac artery: Patent Left profunda: Proximal results of 60% stenosis Left SFA: Ostial, severe, heavily calcified 80 to 90% stenosis. Rest of SFA is patent. Left popliteal artery: Patent Left TP segment: Patent Left anterior tibial artery: Occluded Left posterior tibial artery: Occluded Left peroneal artery: Patent. . Lower Extremity Interventional Findings Procedure detail: We obtained access in the right common femoral artery. After abdominal aortogram was performed, we switched short sheath to a long sheath. We predilated left common/external iliac artery stenosis with 7.0 x 60 mm balloon. This was followed by placement of 8.0 x 19 mm Omnilink stent. We then dilated to the ostial SFA stenosis with 6.0 x 40 mm balloon. At this time final angiogram showed excellent 2 vessel expansion and no residual stenosis in these vessels. Patient left the Drain Technician in a stable condition. Left common/External Iliac Artery: 80% stenosis treated with AB ARMADA 35 OTW [id number]. 8.0 x 19 mm Omnilink stent was placed.. Left Proximal Superficial Femoral Artery: 80-90 % stenosis treated with AB ARMADA 35 OTW [id number]. Conclusions There is severe left lower extremity peripheral artery disease. Inflow disease treated with stenting of common/external iliac artery and balloon angioplasty of ostial SFA. Below the knee patient has single-vessel runoff. We will medically treated.. Left common/external Iliac Artery was treated with Balloon and stent. Single-vessel runoff to the foot. Recommendations Aspirin and Plavix. Outpatient cardiology follow up in 4 weeks. Access Site Site: Right Femoral artery Sheath Size: 6 Fr Hemost... Method: Suture Hemost... Success: Successful Procedure Details Findings Procedure Consent Obtained. Admit Source: In Patient. Pre-Procedure Time Out. Identified patient by full name and date of as verbalized by the patient/guarantor. Does the consent match the physician's order: Yes. Accurate & Complete Informed Consent: Yes. Inpatient/Outpatient History & Physical on Chart: Yes. If H&P is completed, is and addenduem needed: No; If yes, is the addendum complete: N/A. Visualize and Verify Site with Patient/Guarantor: N/A. Relevant Radiology Images available: N/A. The risks, benefits, and alternatives of sedation and/or procedure were discussed by physician. The patient agrees to continue. Procedure started. IV Site on Arrival: 22 gauge in the right anticubital. IV Fluids: 0.9% NaCl at KVO. 200 mL infused prior to laborer heading. Pre Procedural Pulses: bilateral posterior tibial was Doppled. Pre Procedural Pulses: bilateral dorsalis pedis was Doppled. Oxygen started at 2liters/min via nasal canula. bilateral groins was prepped with chloroprep then draped in the usual sterile fashion. Physician notified. Baseline sample Acquired. HR: 78 BPM. Physician arrived. Physician scrubbed in. Time out performed with cath team. Lidocaine 1% infiltrated to the right groin. Arterial access obtained. A 5Fr UF catheter in over wire. Abdominal aortogram performed in AP @ 10 mL/sec for a total of 30 mL. Lamont wire in through UF catheter. Lamont wire advanced and seated in left profunda. UF catheter out over glide wire. 6fr sheath exchanged over wire for 6fr 45cm flexor sheath. Left common iliac selected and arteriogram with runoff performed @ 10 mL/sec for a total of 20 mL. Balloon inserted over the wire to the common iliac. Inflation number : 1 A AB ARMADA 35 OTW [id number] was prepped and advanced across the Mid Common Iliac, Left , then inflated to 6 BLESSING for 1:01 seconds. Balloon out over wire. Balloon and wire inserted to the left external iliac. Inflation number : 1 A AB ARMADA 35 OTW [id number] was prepped and advanced across the External Iliac, Left , then inflated to 6 BLESSING for 1:01 seconds. Inflation number: 2 The AB ARMADA 35 OTW [id number] was reinflated across the External Iliac, Left, to 6 BLESSING for 1:01 seconds. Inflation number: 3 The AB ARMADA 35 OTW [id number] was reinflated across the External Iliac, Left, to 6 BLESSING for 0:31 seconds. Balloon out over wire. Stent inserted over the wire to the common iliac. Inflation Number : 2 A [place] OMNILINK STENT [id number] -Lot Number# [id number] was prepped and advanced across the Mid Common Iliac, Left. The stent was deployed at 11 BLESSING for 1:00 seconds. EXP 04-28-22. Stent balloon out over wire. Angiography performed, checking results. Seeker catheter inserted over the wire. Wire redirected to the superficial femoral. Seeker catheter out over glidewire. Lamont wire seated in distal SFA. Balloon inserted over the wire to the superficial femoral. Inflation number : 1 A AB ARMADA 35 OTW [id number] was prepped and advanced across the Ostial Superficial Femoral, Left , then inflated to 6 BLESSING for 1:01 seconds. Inflation number: 2 The AB ARMADA 35 OTW [id number] was reinflated across the Ostial Superficial Femoral, Left, to 6 BLESSING for 1:31 seconds. Balloon out. Angiography performed, checking results. 6fr 45cm flexor sheath exchanged for 6fr short femoral sheath over glide wire. Lamont wire out. Sheath(s) sutured into position with 2-0 silk and sterile 4x4's and Op-site applied over the site. No oozing or signs and symptoms of hematoma noted. ACT drawn. Results 186 seconds. Therapeutic limits - pre-heparin administration 90-150 seconds and monitoring heparin during a vascular procedure >250 seconds. A Suture was successful obtaining hemostatsis at the Right Femoral artery insertion site. Arterial sheath flushed and connected to tranducer and pressure bag with heparinized saline. PERRLA. Strong, equal hand apns bilaterally. No VTE prophylaxis required. Medication's Wasted: Heparin = 3000 unit. Medication's Wasted: Other = Fentanyl 50 mcg. Medication's Wasted: Other = Versed 2 mg. Total IV fluids: 50 mL. Post-op diagnosis: Severe PAD, Severe left common iliac stenosis, severe left ostial SFA stenosis. Complications: None. Estimated blood loss: 5mL-10mL. Responsiveness - Normal response to verbal stimuli; alert and oriented, PERRLA. Airway - Unaffected, no intervention required; spontaneous ventilation. Circulation: W/N/L, pulses unchanged. Nausea/Vomiting: N/A. Procedure completed. Patient transferred by bed to [facility]. Vital chart was stopped. Procedure Medications Start: 12:33 PM Stop: 12:33 PM Medication: Versed Amount: 1 mg Route: I.V. Start: 12:33 PM Stop: 12:33 PM Medication: Fentanyl Amount: 50 mcg Route: I.V. Start: 12:45 PM Stop: 12:45 PM Medication: Versed Amount: 1 mg Route: I.V. Start: 12:52 PM Stop: 12:52 PM Medication: Heparin Amount: 4000 units Route: I.V. Start: 1:13 PM Stop: 1:13 PM Medication: Heparin Amount: 3000 units Route: I.V. Start: 1:33 PM Stop: 1:33 PM Medication: Heparin Amount: 1000 units Route: I.V. Start: 1:34 PM Stop: 1:34 PM Medication: Plavix Amount: 600 mg Route: P.O. I, the attending physician, have reviewed and verified all procedure medications. Yes, all medications given per verbal order History/Risk Factors Hypertension: Yes Renal Disease: No Tobacco Use: Current/Recent(w/in 1 year) Prior Interventions PCI: No CABG: No Report Signatures Finalized by Rober Marx MD on 02/06/2022 11:53 AM
[2022-01-22] MEDS: dilTIAZem 30 mg Tablet PO ×2 (09:00→15:36)
[2022-01-22] MEDS: docusate sodium 100 mg Capsule PO ×2 (09:00→18:20)
[2022-01-22] MEDS: folic acid 1 mg Tablet PO (09:02)
[2022-01-22] MEDS: ferrous gluconate 324 mg Tablet PO ×2 (09:02→18:20)
[2022-01-22] MEDS: multivitamin therapeutic Tablet 1 TAB PO (09:02)
[2022-01-22] MEDS: thiamine 100 mg Tablet PO (09:02)
[2022-01-22] MEDS: pantoprazole DR 40 mg Tablet PO (09:02)
[2022-01-22] MEDS: diphenhydrAMINE 50 mg Capsule PO (11:13)
--- NOTE | 2022-01-22 11:49 | P.CONIM_ITS ---
Providers/Reason For Consult Consulting Physician/Specialty*: Slim Fuentes MD; orthopedic surgery Reason for Consult*: Gangrene left second toe Attending Physician: Alexander Patton MD Primary Care Provider: Sachin Gallagher DO History of Present Illness History of Present Illness Reginald Pelaez is a 81 year old male admitted last night for a necrotic left second toe. He has a known history of peripheral vascular disease. A CT angiogram 2 days ago revealed severe bilateral lower extremity arterial disease with 80% superficial femoral artery stenosis on the right and 70% superficial femoral artery stenosis on the left. There is severe three-vessel disease in both lower extremities with probably a one-vessel runoff beneath the knee. The patient describes 5 days ago developing progressive necrosis of the tip of the second toe. He was seen at our emergency room last night. He has been admitted to medicine and is scheduled for angiography and likely intervention today. He denies any fevers or chills. He was seen in our emergency room and admitted to the medicine service Medications/Allergies Home Medications Medication Instructions Recorded Confirmed Last Taken Type lisinopril 20 1 tab PO QAM 11/13/21 01/21/22 01/21/22 History mg-hydrochlorothiazide 25 mg tablet multivitamin 1 tab PO DAILY 01/21/22 01/21/22 Unknown History Allergies Allergy/AdvReac Type Severity Reaction Status Date / Time No Known Allergies Allergy Verified 01/21/22 15:01 Current Medications Generic Name Dose Route Start Last Admin Trade Name Freq PRN Reason Stop Dose Admin Diltiazem HCl 30 mg 01/21/22 17:00 01/22/22 09:00 Diltiazem 30 Mg Tablet PO 30 mg QID LINDA Administration Docusate Sodium 100 mg 01/21/22 18:00 01/22/22 09:00 Docusate Sodium 100 Mg Capsule PO 100 mg BID LINDA Administration Ferrous Gluconate 324 mg 01/21/22 19:10 01/22/22 09:02 Ferrous Gluconate 324 Mg Tablet PO 324 mg BIDWM LINDA Administration Folic Acid 1 mg 01/22/22 09:00 01/22/22 09:02 Folic Acid 1 Mg Tablet PO 1 mg DAILY LINDA Administration Heparin Sodium (Porcine) 5,000 unit 01/21/22 16:45 01/22/22 05:01 Heparin 5,000 Unit/Ml Inj 1 Ml SUBCUT 5,000 unit Q12H LINDA Administration Sodium Chloride 1,000 mls @ 75 mls/hr 01/21/22 16:45 01/22/22 05:01 Sodium Chloride 0.9% IV 75 mls/hr .[id number] LINDA Administration Piperacillin Sod/Tazobactam 50 mls @ 12.5 mls/hr 01/21/22 17:00 01/22/22 09:03 Sod 3.375 gm/ Sodium Chloride IV 12.5 mls/hr Q8H LINDA Administration Lorazepam 2 mg 01/21/22 19:10 01/21/22 21:24 Lorazepam 2 Mg Tablet PO 2 mg Q4H PRN Administration WITHDRAWAL Protocol Morphine Sulfate 4 mg 01/21/22 19:10 01/21/22 21:23 Morphine 2 Mg/Ml Syr 1 Ml IVP 4 mg Q4H PRN Administration SEVERE PAIN Multivitamins Therapeutic 1 tab 01/22/22 09:00 01/22/22 09:02 Multivitamin Therapeutic Tablet PO 1 tab DAILY LINDA Administration Pantoprazole Sodium 40 mg 01/22/22 09:00 01/22/22 09:[address] 40 Mg Tablet PO 40 mg DAILY LINDA Administration Thiamine Mononitrate 100 mg 01/22/22 09:00 01/22/22 09:02 Thiamine 100 Mg Tablet PO 100 mg DAILY LINDA Administration PFSH Acute PFSH: Medical History (Updated 01/21/22 @ 18:18 by Dean Bledsoe MD) Chronic alcoholism Chronic hyponatremia Claudication Greater trochanteric bursitis History of nonmelanoma skin cancer HTN (hypertension) 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 Severe peripheral arterial disease Surgical History History of hip surgery Family History Other No pertinent family history Social History (Updated 01/21/22 @ 17:00 by Alexander Patton MD) Smoking and tobacco status: former smoker Alcohol intake: current Alcohol type: beer, wine and hard liquor Substance/Drug Use: never Lives independently: Yes Household members: none Housing: House History of recent travel: No Vitals/I&O/Wt Last Vital Signs Temp 97.8 F 01/22/22 07:40 Pulse 82 01/22/22 09:06 Resp 18 01/22/22 09:06 BP 96/52 01/22/22 07:40 Pulse Ox 92 01/22/22 09:06 O2 Del Method 01/22/22 09:06 01/21/22 01/22/22 01/22/22 22:59 06:59 14:59 Intake Total 540 / 540 1546.25 / 2086.25 Output Total 500 / 500 Balance 540 / 540 1046.25 / 1586.25 Weight last 48 hrs Weight 175 lb 6.4 oz Weight 175 lb 6.4 oz Weight 175 lb Physical Exam Narrative: Emanation of the patient's left lower extremity. He has necrosis about the second toe extending from approximately the level of the middle phal anx distal. There is no purulence. There is no proximal erythema. I can feel no dorsalis pedis or tibialis posterior pulses. Data : 01/22/22 04:30 01/22/22 04:30 Micro: Microbiology 01/21/22 14:55 Blood Culture - Preliminary Blood SPECIMEN COLLECTED 01/21/22 14:52 Blood Culture - Preliminary Blood SPECIMEN COLLECTED A&P Assessment and plan (1) Gangrene due to arterial insufficiency: Reginald has gangrene due to peripheral vascular disease. He will undergo angiography and hopeful revascularization today. There is no evidence of inf ection in the toe. I would suggest reevaluation by one of our environmental technician in 2 weeks for planned amputation. We will better be able to assess the provements of vascularity of the foot at that time. Status: Acute Coding Level of Care Code Acute Office Assistant Receptionist for Jorge Betancourt Diagnoses Gangrene due to arterial insufficiency I77.1; I96
--- NOTE | 2022-01-22 12:00 | PC.NURSE ---
off floor for procedure
--- NOTE | 2022-01-22 12:32 | W.PM.OPSUD ---
Surgery/Procedure H&P Update DATE OF PROCEDURE: January 22, 2022 DATE H&P PERFORMED: 01/21/22 H&P UPDATE INFORMATION: I have reviewed H&P completed within last 30 days, I have examined patient prior to procedure and No changes to prior documentation PREOP DIAGNOSIS: Critical limb ischemia/ Gangrenous left toe PRIMARY INDICATION FOR PROCEDURE: Critical limb ischemia/ Gangrenous left toe PLANNED PROCEDURE: Operation Date: 01/22/22 12:00 Proposed Procedures p Peripheral Angiography(Left) - Rober Marx M.D Possible percutaneous intervention PATIENT REASSESSED PRIOR TO SEDATION, WITH NO CHANGE NOTED: Yes PHYSICAL EXAM: alert, oriented x 3 and clear to auscultation bilaterally AIRWAY EVAL/ANESTHESIA PLAN: ASA IV, Local Anesthesia, Risks, benefits & alternatives of sedation and/or procedure discussed and Patient agrees to continue as planned ADDITIONAL INFORMATION: Moderate sedation
--- NOTE | 2022-01-22 13:12 | PM.PN ---
Subjective Subjective: No acute events overnight. Patient on examination laying comfortably in bed. Heart rate better controlled. Continues to remain on room air. Plan for peripheral angiogram and possible angioplasty later in the day today. Currently NPO. Vitals/I&O/Wt Last Vital Signs Temp 97.8 F 01/22/22 07:40 Pulse 82 01/22/22 09:06 Resp 18 01/22/22 09:06 BP 96/52 01/22/22 07:40 Pulse Ox 92 01/22/22 09:06 O2 Del Method 01/22/22 09:06 01/21/22 01/22/22 01/22/22 22:59 06:59 14:59 Intake Total 540 / 540 1546.25 / 2086.25 Output Total 500 / 500 Balance 540 / 540 1046.25 / 1586.25 Weight last 48 hrs Weight 79.56 kg Weight 79.56 kg Weight 79.379 kg Physical Exam Narrative: General: No acute distress, AO x3, pleasant, hard of hearing HEENT: PERRLA, pupils bilaterally equal and reactive Chest: Normal vesicular bilateral breath sounds, equal air entry bilaterally CVS: S1-S2 irregularly irregular, no murmurs, no tachycardia, no gallops, no rubs Abdomen: Soft, nontender, no organomegaly, bowel sounds present, morbidly obese Neuro: No focal deficits, no facial deformity, AO x3, power 5/5 in all limbs Extremity: Right leg cool to touch, left leg below knee warm to touch, erythema present around the base of second toe along with whitish discoloration of the base of second toe and bluish blackish discoloration and partial autoamputation of the tip of second toe Data : 01/22/22 04:30 01/22/22 04:30 Micro: Microbiology 01/21/22 14:55 Blood Culture - Preliminary Blood SPECIMEN COLLECTED 01/21/22 14:52 Blood Culture - Preliminary Blood SPECIMEN COLLECTED A&P Assessment and plan (1) 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 Appreciate orthopedic recommendations. Plan for possible amputation as an outpatient with podiatry in 2 weeks after revascularization. No signs of infection on CT imaging. Appreciate ESR, CRP. Status: Acute (2) Cellulitis of second toe of left foot: CT results appreciated. No signs of infection. MRSA swab pending. For now continue vancomycin and Zosyn. Will follow culture results. Status: Acute (3) Severe peripheral arterial disease: CTA runoff results appreciated discussed in detail with Dr. Bledsoe. Plan for peripheral angiography and plasty today. Continue with aspirin, statin. A1c 5.3, appreciate lipid panel. Status: Acute (4) Afib: New diagnosis. Stop IV fluids post peripheral angiogram. Continue with oral Cardizem 30 mg every 8 hourly. Echocardiogram shows an EF of 55% without regional wall motion abnormality, mild biatrial enlargement, mild to moderate MR, mild to moderate TR, PASP of 29 mmHg. Patient will most likely need anticoagulation. Will discuss after revascularization. Status: Acute (5) Chronic alcoholism: 3 to 4 glasses of whiskey nightly. CIWA protocol. Thiamine, folic acid Status: Acute (6) Chronic hyponatremia: Baseline sodium 1 20-1 25. 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 Continue to monitor. Status: Acute Plan Analgesia: Tylenol, morphine 1 mg every 4 hours as needed Glycemic control: Not needed. Nutrition: Cardiac diet CODE STATUS: Full code PUD prophylaxis: Protonix DVT prophylaxis: Heparin 5000 every 12 hourly Discharge planning: Home with possible home health on discharge as patient most likely would be partial to nonweightbearing to the foot Continue with CSU care. This documentation was created by [employer] interactive art director software. Every effort was made to ensure accuracy of interactive art director. Any obvious errors or omissions should be clarified with the author of the document. Attestations Medical Necessity Statement*: Requires further hospitalization for management of severe peripheral arterial disease leading to left second toe dry gangrene and partial autoamputation Time Spent in Patient Care: Greater than 35 minutes Coding Level of Care Code Acute Risk Control Specialist for Chg Fwd Diagnoses Gangrene due to arterial insufficiency I77.1; I96 Cellulitis of second toe of left foot L03.032 Severe peripheral arterial disease I73.9 Afib I48.91 Chronic alcoholism F10.20 Chronic hyponatremia E87.1
--- NOTE | 2022-01-22 14:30 | PC.NURSE ---
Received patient from photographic laboratory technician. Patient has sheath in place with pressure bag. No hematoma present. Patient instructed on safety measures and activity restrictions. Verbalized understanding, education reinforced.
--- NOTE | 2022-01-22 14:49 | PM.PN ---
Subjective Subjective: Patient is stable. Underwent peripheral angiogram today that showed severe left common iliac artery disease and severe left ostial SFA stenosis. Has single vessel runoff below the knee with patent peroneal artery. Vitals/I&O/Wt Last Vital Signs Temp 97.4 F L 01/22/22 14:00 Pulse 95 01/22/22 14:00 Resp 15 01/22/22 14:00 BP 119/62 01/22/22 14:00 Pulse Ox 91 01/22/22 14:00 O2 Del Method 01/22/22 14:00 01/21/22 01/22/22 01/22/22 22:59 06:59 14:59 Intake Total 540 / 540 1546.25 / 2086.25 Output Total 500 / 500 200 / 200 Balance 540 / 540 1046.25 / 1586.25 -200 / -200 Weight last 48 hrs Weight 175 lb 6.4 oz Weight 175 lb 6.4 oz Weight 175 lb Physical Exam Narrative: GENERAL: Patient is sleepy NECK: No jugular vein distension. [] HEENT: No cyanosis. No icterus. No pallor. [] HEART: Irregularly irregular LUNGS: Clear to auscultate bilaterally. [] ABDOMEN: Soft, nontender and nondistended. Positive bowel sounds. No guarding, rebound or tenderness. [] CENTRAL NERVOUS SYSTEM: Grossly nonfocal. [] EXTREMITIES: Gangrenous left second toe.Left foot is warm. Pulses are not palpable bilaterally. Data : 01/22/22 04:30 01/22/22 04:30 Micro: Microbiology 01/21/22 21:31 MRSA Culture - Final Nose 01/21/22 14:55 Blood Culture - Preliminary Blood SPECIMEN COLLECTED 01/21/22 14:52 Blood Culture - Preliminary Blood SPECIMEN COLLECTED A&P Assessment and plan (1) Chronic hyponatremia: Status: Acute (2) Chronic alcoholism: Status: Acute (3) Cellulitis of second toe of left foot: Status: Acute (4) Gangrene due to arterial insufficiency: Status: Acute (5) Severe peripheral arterial disease: Status: Acute (6) HTN (hypertension): Status: Acute (7) History of nonmelanoma skin cancer: Status: Acute (8) Malignant neoplasm of glottis: Status: Acute Plan Patient underwent peripheral angiogram secondary to critical limb ischemia with a gangrenous second left toe. He underwent successful revascularization of left common iliac stenosis with stent placement and ostial SFA severe stenosis with balloon angioplasty. Has single-vessel runoff with open peroneal artery. AT and PT are occluded. However with the revascularization of inflow, healing post amputation should improve. We will plan on outpatient follow-up and revascularization of right lower extremity. Did not have runoff performed today. Will keep on aspirin and Plavix for now. Antibiotics per primary team. Thank you for involving us with care of this patient. We will continue to follow. Please call with questions. Attestations Medical Necessity Statement*: Care expected to cross 2 midnights. Coding Level of Care Code Acute Hvac Installation Technician for g Fwd Diagnoses Chronic hyponatremia E87.1 Chronic alcoholism F10.20 Cellulitis of second toe of left foot L03.032 Gangrene due to arterial insufficiency I77.1; I96 Severe peripheral arterial disease I73.9 HTN (hypertension) I10 History of nonmelanoma skin cancer Z85.828 Malignant neoplasm of glottis C32.0
[2022-01-22] MEDS: vancomycin 1,500 MG/300 ML PIGGYBACK 200 MG IV (15:35)
[2022-01-22] MEDS: sodium chloride 0.9% 1,000 ML 100 ML IV (15:36)
[2022-01-22 15:37] LABS: Partial Thromboplastin Time 147.4 SECONDS (23.9-36.7)
[2022-01-22] MEDS: ALPRAZolam 0.5 mg Tablet 0.25 MG PO (15:38)
[2022-01-22 18:52] LABS: Partial Thromboplastin Time 33.9 SECONDS (23.9-36.7)
--- NOTE | 2022-01-22 20:20 | PC.NURSE ---
Sheath removed per protocol patient tolerated well the first 20min pressure removed and hematoma formation noted pressure immediately held for another 20min patient educated on the moving of head and squirming in the bed would cause it to bust loose again DR Marx notified instructed to monitor and obtain Ultra sound if continued to increase in size contact b2b sales consultant internationalist for further instructions
[2022-01-23] VITALS (7 sets, daily range): BP systolic 100–115; BP diastolic 55–67; PULSE 76–117; RESP 16–18; TEMP 36.6–37.3; O2SAT 92–99
[2022-01-23] MEDS: piperacillin-tazobactam 3.375 GM in sodium chloride 0.9% (plus) 50 ML IV ×2 (00:06→08:07)
[2022-01-23] MEDS: dilTIAZem 30 mg Tablet PO ×2 (00:06→08:05)
[2022-01-23] MEDS: heparin 5,000 unit/mL INJ 1 mL 5000 UNIT SUBCUT (06:04)
[2022-01-23 06:08] LABS: Basophils # 0.1 10^3/uL (0.0-0.1); Basophils % 0.9 %; Eosinophils # 0.2 10^3/uL (0.0-0.8); Eosinophils % 1.8 %; Hemoglobin 12.1 g/dL (11.7-16.6); Lymphocytes # 1.2 10^3/uL (0.8-4.8); Lymphocytes % 11.2 %; Mean Corpuscular HGB Conc 36.7 g/dL (30.0-36.0); Mean Corpuscular Hemoglobin 40.6 pg (28.0-34.0); Mean Corpuscular Volume 110.7 fl (80-94); Monocytes # 0.8 10^3/uL (0.2-0.9); Monocytes % 7.7 %; Neutrophils # 8.12 10^3/uL (1.8-7.7); Neutrophils % 77.4 %; Nucleated Red Blood Cells % 0 %; Platelet Count 356 10^3/cmm (130-400); Red Blood Count 2.98 10^6/uL (4.1-5.3); White Blood Count 10.5 10^3/uL (4.0-10.0)
[2022-01-23 06:34] LABS: Alanine Aminotransferase 22 U/L (0-41); Albumin Level 2.5 g/dL (3.5-5.2); Alkaline Phosphatase 137 U/L (40-130); Anion Gap 13.9 (5-19); Aspartate Amino Transferase 32 U/L (0-40); Blood Urea Nitrogen 11 mg/dL (8-23); Carbon Dioxide 21 mmol/L (22-29); Chloride 97 mmol/L (98-107); Globulin 2.6 g/dL (1.3-4.6); Glucose 103 mg/dL (65-115); Osmolality Calculated 268 mOsm/kg (285-295); Sodium 129 mmol/L (136-145); Total Bilirubin 0.7 mg/dL (0.15-1.2); Total Protein 5.1 g/dL (6.6-8.7)
[2022-01-23 07:21] LABS: Potassium 2.9 mmol/L (3.5-5.1)
--- NOTE | 2022-01-23 07:25 | PM.PN ---
Subjective Subjective: Reginald underwent angiography yesterday of the lower extremities. He has diffuse calcified disease throughout. A stent was placed in the mid left common iliac and an angioplasty was done of the left external iliac. An angioplasty was also done of the ostial superficial femoral artery. His superficial femoral artery is open down through the popliteal. He has only one-vessel runoff below the knee. He tolerated this well. His potassium is low this morning 2.9. His creatinine remains normal. Vitals/I&O/Wt Last Vital Signs Temp 99.1 F 01/23/22 04:00 Pulse 76 01/23/22 06:00 Resp 17 01/23/22 04:00 BP 109/67 01/23/22 04:00 Pulse Ox 92 01/23/22 04:00 O2 Del Method 01/22/22 21:17 O2 Flow Rate 2 01/22/22 21:17 01/22/22 01/23/22 01/23/22 22:59 06:59 14:59 Intake Total 1200 / 1250 1530 / 2780 Output Total 550 / 750 500 / 1250 Balance 650 / 500 1030 / 1530 Weight last 48 hrs Weight 167 lb 14.4 oz Weight 175 lb 6.4 oz Weight 175 lb 6.4 oz Weight 175 lb Physical Exam Narrative: GENERAL: Comfortable, sleeping this morning HEENT: Exam within normal limits. NECK: Supple without jugular vein distention. The carotid upstroke is normal without bruits. BACK: Exam normal. LUNGS: Clear. HEART: Regular rate and rhythm. ABDOMEN: Benign without organomegaly or tenderness. EXTREMITIES: No edema. The left second toe is black and dry the distal one half. The remainder of the leg is warm as is the foot. There are no pulses in the foot. The entry site on the right is flat, dry without bleeding or hematoma. There are good femoral pulses bilaterally. NEUROLOGIC: Exam normal. SKIN: Unremarkable. Data : 01/23/22 05:31 01/23/22 05:31 Micro: Microbiology 01/21/22 14:52 Blood Culture - Preliminary Blood NEGATIVE TO DATE 01/21/22 14:55 Blood Culture - Preliminary Blood NEGATIVE TO DATE 01/21/22 21:31 MRSA Culture - Final Nose A&P Assessment and plan (1) HTN (hypertension): Status: Acute (2) Chronic hyponatremia: Status: Acute (3) Chronic alcoholism: Status: Acute (4) Gangrene due to arterial insufficiency: Status: Acute (5) Severe peripheral arterial disease: Status: Acute (6) Hypokalemia: Status: Acute Plan It looks like he will lose at least half of the left second toe. From a cardiac standpoint, patient may be discharged. It appears amputation will not take place for a while. I will order some potassium this morning. He should see our nurse practitioner in the office in about 7 to 10 days for a right groin check and chemistry panel. He should go home on low-dose aspirin and Plavix as well as his other medications as previously prescribed. Attestations Medical Necessity Statement*: Hospital stay for critical limb ischemia of the left leg. Coding Level of Care Code Established Pt Acute Daycare Manager for Jorge Betancourt Patient Type Established History Detailed Exam Detailed Medical Decision Making Moderate Complexity Diagnoses HTN (hypertension) I10 Chronic hyponatremia E87.1 Chronic alcoholism F10.20 Gangrene due to arterial insufficiency I77.1; I96 Severe peripheral arterial disease I73.9 Hypokalemia E87.6
[2022-01-23] MEDS: ferrous gluconate 324 mg Tablet PO (08:04)
[2022-01-23] MEDS: potassium chloride ER 20 mEq Tablet 40 MEQ PO (08:04)
[2022-01-23] MEDS: docusate sodium 100 mg Capsule PO (08:05)
[2022-01-23] MEDS: multivitamin therapeutic Tablet 1 TAB PO (08:05)
[2022-01-23] MEDS: folic acid 1 mg Tablet PO (08:05)
[2022-01-23] MEDS: pantoprazole DR 40 mg Tablet PO (08:05)
[2022-01-23] MEDS: thiamine 100 mg Tablet PO (08:05)
[2022-01-23] MEDS: cyanocobalamin 1,000 mcg Tablet 1000 MCG PO (08:05)
[2022-01-23] MEDS: aspirin 81 mg EC Tablet PO (08:05)
[2022-01-23] MEDS: clopidogrel 75 mg Tablet PO (08:05)
[2022-01-23] MEDS: sodium chloride 0.9% 1,000 ML 50 ML IV (08:09)
[2022-01-23] MEDS: potassium chloride ER 20 mEq Tablet 80 MEQ PO (12:06)
--- NOTE | 2022-01-23 12:06 | P.DS_ITS ---
Discharge Providers Date of Admission: 01/21/22 16:19 Date of Discharge: January 23, 2022 Attending Provider at Admission: Alexander Patton MD Attending Provider at Discharge: Alexander Patton MD Consults: Cardiology: Dr. Bledsoe Orthopedics: Dr. Fuentes Primary Care Provider: Sachin Gallagher DO Diagnoses at Discharge Discharge Diagnosis (1) HTN (hypertension): Status: Acute (2) Chronic hyponatremia: Status: Acute (3) Chronic alcoholism: Status: Acute (4) Gangrene due to arterial insufficiency: Status: Acute (5) Severe peripheral arterial disease: Status: Acute (6) Hypokalemia: Status: Acute (7) PAC (premature atrial contraction): Status: Acute Reason for Visit Reason for Visit: Infected foot Hospital Course Hospital Course Reginald Pelaez is a 81 year old male who came to the emergency room today for a black left toe.? He has a history of peripheral arterial disease and actually saw Dr. Marx in our office a couple weeks ago.? A CT angio was ordered and was done just 2 days ago.? It revealed severe bilateral lower extremity arterial disease which is not a surprise.? He has a 80% superficial femoral artery stenosis on the right at Nael's canal.? There are multiple others from the common iliac all the way to the popliteal.? 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 On the left, there is a 70% ostial left superficial femoral artery stenosis.? There are additional high-grade left superficial femoral artery stenoses all the way to the popliteal.? There is severe three- vessel disease in both lower extremities below the knee.? There is probably only one-vessel runoff below each knee.? There are also advanced plaques in the celiac, superior mesenteric artery and the renals. Patient noticed that his left second toe was turning colors yesterday or the day before.? He decided to drop by the [facility] today and they took 1 look at his foot and sent him over here.? He has a black gangrenous left second toe.? He does not have any pain in the leg.? His leg is otherwise warm. There are other complicating illnesses.? He is an alcoholic with cirrhosis of the liver and chronic hyponatremia.? His favorite beverage is [place]mer[place] Jerome.? He also has a history of hypertension.? 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 Previously he was a smoker and has COPD.? He is also had multiple nonmelanoma skin cancers.? There was some question as to whether or not he had atrial fibrillation in the emergency room. Patient admitted to hospital further evaluation and management. Cardiology and orthopedics were consulted. On admission CT aorta was done which was consistent with severe central and peripheral arterial disease. Patient underwent peripheral angiogram and angioplasty on 01/22 which showed severe left common iliac artery disease and several left ostial SFA stenosis along with single- vessel runoff below the knee with patent peroneal artery. He underwent successful revascularization of the left common iliac stenosis with stent placement and ostial SFA severe stenosis with balloon angioplasty. Orthopedic team advised patient to follow-up as an outpatient within the next 2 weeks with podiatry for amputation. On admission CT scan was done which ruled out any localized abscess, cellulitis or signs of infection. Patient's blood cultures so far has remained negative. Hospitalization was otherwise unremarkable. On admission patient was found to have borderline blood pressures for which his home antihypertensives were withheld and his blood pressures have remained stable. During hospitalization patient remained on telemetry which ruled out atrial fibrillation was consistent with multiple VPCs and PACs. He is been discharged hemodynamically stable condition with home health with advised to follow-up with cardiology nurse practitioner within 7 to 10 days and then with Dr. Marx within next 1 month. He is to follow-up with podiatry within next 1 week. Physical Exam Narrative: General: No acute distress, AO x3, pleasant, hard of hearing HEENT: PERRLA, pupils bilaterally equal and reactive Chest: Normal vesicular bilateral breath sounds, equal air entry bilaterally CVS: S1-S2 irregularly irregular, no murmurs, no tachycardia, no gallops, no rubs Abdomen: Soft, nontender, no organomegaly, bowel sounds present, morbidly obese Neuro: No focal deficits, no facial deformity, AO x3, power 5/5 in all limbs Extremity: Right leg cool to touch, left leg below knee warm to touch, erythema present around the base of second toe along with whitish discoloration of the base of second toe and bluish blackish discoloration and partial autoamputation of the tip of second toe. Post procedure pulses palpable on the left side Discharge Data Studies Completed and Pending Completed Studies During Hospitalization Category Date Time Status CT foot LT wo con* [id number] Stat Cat Scan 01/21/22 16:55 Completed XR foot LT min 3V* [id number] Stat Exams 01/21/22 14:26 Completed CV. echo complete* [id number] Routine Ultrasound 01/21/22 16:40 Completed US arterial duplex lower extremity LT [CV arterial Ultrasound 01/21/22 14:28 [place] [id number]] Stat Pending at discharge Category Date Time Status EPIC INTERFACE ANALYST request for service Routine Exams 01/22/22 06:12 Ordered Blood Culture Stat Lab 01/21/22 14:55 Results Radiology Impressions Foot X-Ray 01/21/22 14:26 Impression: 1. Absence of the distal portion of the distal phalanx the left second toe along with absence of the overlying soft tissue. 2. Fractures of the distal left third and fourth metatarsals. 3. Diffuse osteoporosis of the left foot. Foot CT 01/21/22 16:55 IMPRESSION: 1. Second distal phalanx apparent amputation with apparent bandage material seen over the distal portion of the 2nd middle phalanx with a skin defect, negative for acute appearing bony abnormality. 2. Scattered vascular calcifications. 3. Calcified heel spur. 4. First proximal phalangeal proximal medial aspect small avulsion fracture with involvement of the articular surface at the metatarsophalangeal joint. Echocardiogram CONCLUSIONS ?Normal left ventricular size and systolic function, EF55 %. No?regional wall motion abnormalities. ?Mild biatrial enlargementThickened mitral valve. Mild mitral?annular calcification. Mild-moderate mitral valve regurgitation. ?Thickened aortic valve. ?Btvc-[id number] tricuspid valve regurgitation. ?Trace pulmonary valve regurgitation. ?Estimated pulmonary artery peak systolic pressure 29 mmHg?There are no intracardiac masses. ?There is no pericardial effusion. ?Possible moderate pleural effusion on the left side ?No similar previous studies are available for comparison ?Dr Antonio Apodaca MD [facility] ?(Electronically Signed) ?Final Date:? ? ? 21 January 2022 ? 21:29 Laboratory Results WBC 10.5 10^3/uL (4.0-10.0) H 01/23/22 05:31 RBC 2.98 10^6/uL (4.1-5.3) L 01/23/22 05:31 Hgb 12.1 g/dL (11.7-16.6) 01/23/22 05:31 Hct 33.0 % (42.0-52.0) L 01/23/22 05:31 MCV 110.7 fl (80-94) H D 01/23/22 05:31 MCH 40.6 pg (28.0-34.0) H 01/23/22 05:31 MCHC 36.7 g/dL (30.0-36.0) H 01/23/22 05:31 RDW 15.0 % (12.1-15.1) 01/23/22 05:31 Plt Count 356 10^3/cmm (130-400) 01/23/22 05:31 MPV 9.0 fL (7.4-10.4) 01/23/22 05:31 Neut % (Auto) 77.4 % 01/23/22 05:31 Lymph % (Auto) 11.2 % 01/23/22 05:31 [place] % (Auto) 7.7 % 01/23/22 05:31 Eos % (Auto) 1.8 % 01/23/22 05:31 Baso % (Auto) 0.9 % 01/23/22 05:31 Neut # (Auto) 8.12 10^3/uL (1.8-7.7) H 01/23/22 05:31 Lymph # (Auto) 1.2 10^3/uL (0.8-4.8) 01/23/22 05:31 [place] # (Auto) 0.8 10^3/uL (0.2-0.9) 01/23/22 05:31 Eos # (Auto) 0.2 10^3/uL (0.0-0.8) 01/23/22 05:31 Baso # (Auto) 0.1 10^3/uL (0.0-0.1) 01/23/22 05:31 Nucleated RBC % (auto) 0 % 01/23/22 05:31 Nucleated RBCs # 0.0 /100WBC 01/23/22 05:31 ESR 8 mm/hr (0-10) 01/21/22 14:21 PT 14.30 SECONDS (12.1-14.9) 01/21/22 14:21 INR 1.08 (0.8-1.2) 01/21/22 14:21 APTT 33.9 SECONDS (23.9-36.7) D 01/22/22 17:49 Sodium 129 mmol/L (136-145) L 01/23/22 05:31 Potassium 2.9 mmol/L (3.5-5.1) L 01/23/22 05:31 Chloride 97 mmol/L (98-107) L 01/23/22 05:31 Carbon Dioxide 21 mmol/L (22-29) L 01/23/22 05:31 Anion Gap 13.9 (5-19) 01/23/22 05:31 BUN 11 mg/dL (8-23) 01/23/22 05:31 Creatinine 0.8 mg/dL (0.7-1.2) 01/23/22 05:31 GFR Calculation Not Reportable 01/23/22 05:31 Glucose 103 mg/dL (65-115) 01/23/22 05:31 Estimat Average Glucose 105 01/22/22 04:30 Hemoglobin A1c 5.3 % (4.0-6.0) 01/22/22 04:30 Calculated Osmolality 268 mOsm/kg (285-295) L 01/23/22 05:31 Lactic Acid 1.8 mmol/L (0.5-2.2) 01/21/22 14:25 Calcium 8.0 mg/dL (8.5-10.5) L 01/23/22 05:31 Magnesium 1.3 mg/dL (1.7-2.3) L 01/22/22 04:30 Iron 129 ug/dL (59-158) 01/21/22 14:42 TIBC 150 mcg/dl 01/21/22 14:42 % Saturation 86.0 % (20-50) H 01/21/22 14:42 Unsat Iron Binding 21 ug/dL (112-347) L 01/21/22 14:42 Total Bilirubin 0.7 mg/dL (0.15-1.2) 01/23/22 05:31 AST 32 U/L (0-40) 01/23/22 05:31 ALT 22 U/L (0-41) 01/23/22 05:31 Alkaline Phosphatase 137 U/L (40-130) H 01/23/22 05:31 C-Reactive Protein 26.6 mg/L (0.0-4.9) H 01/21/22 14:42 Total Protein 5.1 g/dL (6.6-8.7) L 01/23/22 05:31 Albumin 2.5 g/dL (3.5-5.2) L 01/23/22 05:31 Globulin 2.6 g/dL (1.3-4.6) 01/23/22 05:31 Triglycerides 70 mg/dL (0-150) 01/22/22 04:30 Cholesterol 112 mg/dL (0-200) 01/22/22 04:30 LDL Cholesterol, Calc 52 mg/dL (50-129) 01/22/22 04:30 Total VLDL Cholesterol 14 mg/dL (0-30) 01/22/22 04:30 HDL Cholesterol 46 mg/dL (60-100) L 01/22/22 04:30 Cholesterol/HDL Ratio 2.43 mg/dL (1.0-5.00) 01/22/22 04:30 Vitamin B12 473 pg/mL (232-1245) 01/21/22 14:42 Folate 16.8 ng/mL (4.5-32.2) 01/21/22 14:42 Procalcitonin 0.18 ng/mL (0-0.5) 01/21/22 14:42 TSH 4.96 uIU/mL (0.27-4.20) H 01/21/22 14:42 Urine Color Yellow (Yellow) 01/21/22 17:24 Urine Appearance Clear (CLEAR) 01/21/22 17:24 Urine pH 5 (5-7) 01/21/22 17:24 Ur Specific [place] 1.010 (1.005-1.030) 01/21/22 17:24 Urine Protein Neg (Negative) 01/21/22 17:24 Urine Glucose (UA) Norm (Normal) 01/21/22 17:24 Urine Ketones Negative (Negative) 01/21/22 17:24 Urine Blood Neg (Negative) 01/21/22 17:24 Urine Nitrate Negative (Negative) 01/21/22 17:24 Urine Bilirubin Neg (Negative) 01/21/22 17:24 Urine Urobilinogen Norm mg/dL (Negative) 01/21/22 17:24 Ur Leukocyte Esterase Negative (Negative) 01/21/22 17:24 Urine Opiates Screen Negative ng/mL (Negative) 01/21/22 17:24 Ur Barbiturates Screen Negative ng/mL (Negative) 01/21/22 17:24 Ur Phencyclidine Scrn Negative ng/mL (Negative) 01/21/22 17:24 Ur Amphetamines Screen Negative ng/mL (Negative) 01/21/22 17:24 U Benzodiazepines Scrn Negative ng/mL (Negative) 01/21/22 17:24 Urine Cocaine Screen Negative ng/mL (Negative) 01/21/22 17:24 U Marijuana (THC) Screen Negative ng/mL (Negative) 01/21/22 17:24 Ethyl Alcohol < 10 mg/dL (0-10) 01/21/22 14:42 Vitals Last Vital Signs Temp 98.0 F 01/23/22 11:37 Pulse 89 01/23/22 11:37 Resp 16 01/23/22 11:37 BP 104/55 01/23/22 11:37 Pulse Ox 98 01/23/22 11:37 O2 Del Method 01/23/22 11:37 O2 Flow Rate 2 01/23/22 07:38 Discharge Plan Discharge Patient Disposition: Home Condition: Stable Prescriptions: New aspirin 81 mg Tablet,Delayed Release (Dr/Ec) 81 mg PO DAILY Qty: 30 0RF ferrous gluconate 324 mg (37.5 mg iron) Tablet 324 mg PO BIDWM Qty: 60 0RF diltiazem HCl [Cardizem CD] 120 mg capsule,extended release 24hr 120 mg PO DAILY Qty: 30 0RF clopidogrel 75 mg Tablet 75 mg PO DAILY Qty: 30 0RF pantoprazole 40 mg Tablet,Delayed Release (Dr/Ec) 40 mg PO DAILY Qty: 14 0RF amoxicillin-pot clavulanate [Augmentin] 500-125 mg tablet 1 tab PO BID Qty: 10 0RF levofloxacin 500 mg tablet 500 mg PO Q24H 5 Days Qty: 5 0RF Continued multivitamin Tablet 1 tab PO DAILY Discontinued lisinopril-hydrochlorothiazide 20-25 mg tablet 1 tab PO QAM Discharge Orders: Discharge Order (Routine); Ordered 01/23/22 Ordered By: Alexander Patton Referrals: Cam Frank DPM [Physician] - 4-7 days Rober Marx M.D [Physician] - 1 month Sachin Gallagher DO [Primary Care Provider] - 1 week (Please call Thursday 01/25 to schedule a follow up appointment. ) Sofia Daniel FNP [Nurse Practitioner] - 4-7 days Discharge Diet: Cardiac Discharge Activity: Resume usual activity and Increase activity as tolerated Patient Instructions: Opioid Safety Activity Restrictions/Additional Instructions: Aspirin, Plavix other medication which will be on daily. Do not take lisinopril hydrochlorothiazide combination anymore. You were started on Cardizem 120 mg oral daily. Please follow-up with nurse practitioner from heart services within next 1 week, from cardiology within next 1 month. Please follow-up with podiatry/Dr. Frank within next 4 to 7 days for possible amputation Please try to abstain from alcohol as much as possible Discharge Attestations Time Spent in Discharge Care*: greater than 30 min Specific Discharge Activities: educating patient, discussing with pcp/other providers, discussing with casey saw operator/social workers/dc planners, documenting/other paperwork and evaluating patient/reviewing data Status at Discharge: Cognitive status at discharge: cognitively intact , Behavioral status at discharge: cooperative , Functional status at discharge: other assisted ambulation , Overall status at discharge: patient is back to baseline Quality Metrics Clinical Quality Measures [ No reported AMI, CVA or VTE this stay] Coding Level of Care Code Acute [facility] note Diagnoses HTN (hypertension) I10 Chronic hyponatremia E87.1 Chronic alcoholism F10.20 Gangrene due to arterial insufficiency I77.1; I96 Severe peripheral arterial disease I73.9 Hypokalemia E87.6 PAC (premature atrial contraction) I49.1
--- NOTE | 2022-01-23 13:30 | PC.NURSE ---
Patient education provided regarding discharge. Patient verbalizes understanding. patient has been educated on risks of driving self home and accepted these risks. Patient IV removed upon discharge. VS stable upon departure.
== END 2022-01-23 14:42 | disposition home or self-care (01) | DRG 253 ==
LOC: ER 15:34 → MEDSURG 17:40
PROVIDERS: Internal Medicine; Admitting Provider Student in an Organized Health Care Education/Training Program; Emergency Provider Family Medicine; PCP Emergency Medicine Emergency Medical Services; Visit Provider Student in an Organized Health Care Education/Training Program
PROC: 047L3DZ Dilation of Left Femoral Artery with Intraluminal Device, Percutaneous Approach (ICD-10-PCS; principal; 2022-01-22 12:00)
PROC: 047L3DZ Dilation of Left Femoral Artery with Intraluminal Device, Percutaneous Approach (ICD-10-PCS; 2022-01-22 12:00)
DX: I70.262 Atherosclerosis of native arteries of extremities with gangrene, left leg (principal); E87.1 Hypo-osmolality and hyponatremia; M80.072A Age-related osteoporosis with current pathological fracture, left ankle and foot, initial encounter for fracture; L03.032 Cellulitis of left toe; I10 Essential (primary) hypertension; K70.30 Alcoholic cirrhosis of liver without ascites; F10.20 Alcohol dependence, uncomplicated; I48.91 Unspecified atrial fibrillation; Z85.828 Personal history of other malignant neoplasm of skin; Z85.21 Personal history of malignant neoplasm of larynx; M16.11 Unilateral primary osteoarthritis, right hip; E86.0 Dehydration; I49.1 Atrial premature depolarization; E87.6 Hypokalemia; I08.1 Rheumatic disorders of both mitral and tricuspid valves; J44.9 Chronic obstructive pulmonary disease, unspecified; Z87.891 Personal history of nicotine dependence; Z92.3 Personal history of irradiation
CPT/HCPCS: 36415; 37221; 73630; 73700; 75625; 75710; 80053; 80061; 80306; 80307; 81003; 82607; 82746; 83036; 83540; 83550; 83605; 83735; 84145; 84443; 85025; 85347; 85610; 85651; 85730; 86140; 87040; 87641; 93005; 93306; 93926; 94664; 96360; 96365; 96372; 96375; 99152; 99153; 99285; C1725; C1769; C1876; C1887; C1894; J1644; J2250; J2270; J2543; J3010; J3370; J3411; J3490; J7030; J7050; Q0163; Q9967

== ENCOUNTER 2022-01-25 11:48 | Inpatient (IN) | payer OTHER, MEDICARE, SELFPAY ==
[2022-01-25] VITALS (10 sets, daily range): BP systolic 93–133; BP diastolic 61–87; PULSE 73–101; RESP 17–18; TEMP 36.3–37; O2SAT 93–100; BMI 25.8
--- NOTE | 2022-01-25 13:36 | XR_ITS ---
WS: [id number] Exam: XR foot LT 2V [id number] Date/Time of Exam: 01/25/2022 1:42 PM Reason For Exam: necrotic toe Comparison 01/21/2022. There is absence of the soft tissues of the distal second toe. There is also absence of the distal po rtion of the distal phalanx of the second toe. There is gas in the remaining soft tissues of the dist al second toe with probable early cortical bone destruction of the middle phalanx. This could represe nt osteomyelitis secondary to gas-forming bacteria. No other sign of bone destruction. Healing fractu res of the distal third and fourth metatarsals. Mild degenerative changes in the IP joints. Vascular calcifications in the soft tissues about the foot and ankle. Plantar heel spur. XR/XR foot LT 2V [id number] IMPRESSION: 1. Absence of soft tissues of the distal second toe. There is also absence of t he distal portion of the distal phalanx of the second toe. There is gas in the soft tissues about the middle phalanx of the second toe and probable early cor tical bone destruction. Findings are suspicious for osteomyelitis. 2. Healing fractures of the distal third and fourth metatarsals without signifi cant displacement.
[2022-01-25 14:15] LABS: Basophils # 0.1 10^3/uL (0.0-0.1); Basophils % 0.5 %; Eosinophils # 0.2 10^3/uL (0.0-0.8); Eosinophils % 1.3 %; Hematocrit 36.8 % (42.0-52.0); Lymphocytes # 1.9 10^3/uL (0.8-4.8); Lymphocytes % 14.5 %; Mean Corpuscular HGB Conc 35.3 g/dL (30.0-36.0); Mean Corpuscular Hemoglobin 35.5 pg (28.0-34.0); Mean Corpuscular Volume 100.5 fl (80-94); Mean Platelet Volume 8.6 fL (7.4-10.4); Monocytes # 1.1 10^3/uL (0.2-0.9); Neutrophils # 9.76 10^3/uL (1.8-7.7); Neutrophils % 74.2 %; Nucleated Red Blood Cells % 0 %; Platelet Count 467 10^3/cmm (130-400); Red Blood Count 3.66 10^6/uL (4.1-5.3); Red Cell Distribution Width 12.6 % (12.1-15.1); White Blood Count 13.2 10^3/uL (4.0-10.0)
--- NOTE | 2022-01-25 14:31 | W.ED.SKABFB ---
HPI - Skin/Abscess/Foreign Bdy General: Chief complaint: Skin/Abscess/Foreign Body Stated complaint: footpain, swelling Time Seen by Provider: 01/25/22 13:10 Source: patient Mode of arrival: ambulatory Limitations: no limitations History of Present Illness: 81 yo male turns to the emergency room he was seen last week by myself on the he was admitted with a gangrenous toe and then interventional cardiology was consulted they did some intervention on his leg improved his blood [facility] was consulted and recommended allowing the toe to marginate and then returning for a amputation at a later date. Patient is nearly autoamputated distal half of the second toe on the left foot. He is also noticed redness swelling and erythema that is moving approximately some lymphangitic spread. He denies any fever sweats or chills. Patient has a history of heavy drinking. MD complaint: other (Cellulitis) Onset (ago): week(s) Location: L foot Severity: moderate Pain Consistency: constant Relieving factors: none Exacerbating factors: none Context: none Associated symptoms: Deny arthralgias, chills, cough, fever(s), itching, myalgias, nausea, rigidity, short of breath or vomiting Treatments prior to arrival: none Review of Systems Const: Reports: fatigue and malaise; Denies: fever(s) or chills ENMT: Denies: throat pain, ear or mastoid pain, nasal discharge or nasal congestion Card: Denies: chest pain, edema, dyspnea on exertion or orthopnea Resp: Denies: dyspnea, productive cough or non-productive cough GI: Denies: abdominal pain, nausea or vomiting : Denies: flank pain, difficulty urinating, dysuria, urinary frequency or urinary urgency Skin/Breast: Denies: rash or pruritus [facility] ED PFSH: Medical History Amputated toe of left foot Chronic alcoholism Chronic hyponatremia Claudication Gangrene due to arterial insufficiency Greater trochanteric bursitis History of nonmelanoma skin cancer HTN (hypertension) Hypokalemia 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 Severe peripheral arterial disease Surgical History History of hip surgery Family History Other No pertinent family history Social History Smoking and tobacco status: former smoker Alcohol intake: current Alcohol type: beer, wine and hard liquor Lives independently: Yes Household members: none Housing: House History of recent travel: No Physical Exam Const: GENERAL APPEARANCE: cooperative and comfortable ORIENTATION/CONSCIOUSNESS: Yes awake, Yes oriented to person, Yes oriented to place and Yes oriented to time HENMT: COMMON NORMALS: normocephalic, atraumatic and hearing grossly normal bilaterally HEAD & SCALP: normocephalic and atraumatic Resp: COMMON NORMALS: normal respiratory effort, No retractions, No use of accessory muscles and clear to auscultation bilaterally AUSCULTATION: clear to auscultation bilaterally Cardio: COMMON NORMALS: regular rate, regular rhythm and No murmurs present (Cardio) RATE: regular rate RHYTHM: regular rhythm GI: COMMON NORMALS: Soft to palpation and No hepatosplenomegaly present AUSCULTATION: Yes normoactive bowel sounds PALPATION: Yes Soft to palpation, No Tenderness to palpation present (GI), No Guarding due to palpation present (GI) and Yes No hepatosplenomegaly present Extremity: OTHER: Left second toe gangrenous changes with loss of soft tissue nearly autoamputated. No Drainage. Redness and erythema with proximal streaking. Neuro: SENSORIUM/ORIENTATION: Yes oriented to person, Yes oriented to place and Yes oriented to time Course Vital Signs: Vital signs: Vital Signs Temperature 97.8 F 01/30/22 13:11 Pulse Rate 89 01/30/22 13:11 Respiratory Rate 16 01/30/22 13:11 Blood Pressure 116/74 01/30/22 13:11 Pulse Oximetry 94 01/30/22 13:11 Oxygen Delivery Me thod 01/30/22 11:34 MDM - Skin/Abscess/Foreign Bdy Medicial Decision Making Consult and orthopedics orthopedics will admit IV antibiotics consult for amputation Medical Records I reviewed the patient's medical records. Lab Data I reviewed the patient's lab results. : 01/29/22 05:42 01/29/22 05:42 Radiology Impressions Foot X-Ray 01/25/22 13:36 IMPRESSION: 1. Absence of soft tissues of the distal second toe. There is also absence of the distal portion of the distal phalanx of the second toe. There is gas in the soft tissues about the middle phalanx of the second toe and probable early cortical bone destruction. Findings are suspicious for osteomyelitis. 2. Healing fractures of the distal third and fourth metatarsals without significant displacement. Foot MRI 01/26/22 10:00 IMPRESSION: 1. 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 2. Soft tissue gas with artifact and chronic appearing erosive changes with enhancement involving the 2nd mid phalanx. Associated enhancement with relative preservation of the [place] bone marrow T1 signal. Enhancement may be reactive but early osteomyelitis difficult to exclude. 3. T1 bone marrow signal appears preserved in the 2nd proximal phalanx without evidence of osteomyelitis in this area. 4. Diffuse soft tissue edema involving the 2nd phalangeal soft tissues. 5. No evidence of drainable abscess or fluid collection. 6. Healing fractures of the base of the 2nd and 3rd metatarsals. Healing fractures involving the 3rd and 4th metatarsal necks. Laboratory Results WBC 13.2 10^3/uL (4.0-10.0) H 01/25/22 14:00 RBC 3.66 10^6/uL (4.1-5.3) L 01/25/22 14:00 Hgb 13.0 g/dL (11.7-16.6) 01/25/22 14:00 Hct 36.8 % (42.0-52.0) L 01/25/22 14:00 MCV 100.5 fl (80-94) H 01/25/22 14:00 MCH 35.5 pg (28.0-34.0) H 01/25/22 14:00 MCHC 35.3 g/dL (30.0-36.0) 01/25/22 14:00 RDW 12.6 % (12.1-15.1) 01/25/22 14:00 Plt Count 467 10^3/cmm (130-400) H 01/25/22 14:00 MPV 8.6 fL (7.4-10.4) 01/25/22 14:00 Neut % (Auto) 74.2 % 01/25/22 14:00 Lymph % (Auto) 14.5 % 01/25/22 14:00 [place] % (Auto) 8.0 % 01/25/22 14:00 Eos % (Auto) 1.3 % 01/25/22 14:00 Baso % (Auto) 0.5 % 01/25/22 14:00 Neut # (Auto) 9.76 10^3/uL (1.8-7.7) H 01/25/22 14:00 Lymph # (Auto) 1.9 10^3/uL (0.8-4.8) 01/25/22 14:00 [place] # (Auto) 1.1 10^3/uL (0.2-0.9) H 01/25/22 14:00 Eos # (Auto) 0.2 10^3/uL (0.0-0.8) 01/25/22 14:00 Baso # (Auto) 0.1 10^3/uL (0.0-0.1) 01/25/22 14:00 Nucleated RBC % (auto) 0 % 01/25/22 14:00 Nucleated RBCs # 0.0 /100WBC 01/25/22 14:00 Sodium 129 mmol/L (136-145) L 01/25/22 14:00 Potassium 4.2 mmol/L (3.5-5.1) 01/25/22 14:00 Chloride 94 mmol/L (98-107) L 01/25/22 14:00 Carbon Dioxide 25 mmol/L (22-29) 01/25/22 14:00 Anion Gap 14.2 (5-19) 01/25/22 14:00 BUN 13 mg/dL (8-23) 01/25/22 14:00 Creatinine 0.9 mg/dL (0.7-1.2) 01/25/22 14:00 GFR Calculation Not Reportable 01/25/22 14:00 Glucose 105 mg/dL (65-115) 01/25/22 14:00 Calculated Osmolality 268 mOsm/kg (285-295) L 01/25/22 14:00 Calcium 8.6 mg/dL (8.5-10.5) 01/25/22 14:00 C-Reactive Protein 29.3 mg/L (0.0-4.9) H 01/25/22 14:00 Procalcitonin 0.15 ng/mL (0-0.5) 01/25/22 14:00 Discharge Plan Discharge Patient Disposition: Admitted As Inpatient Admit Provider: Alexander Patton Clinical Impression: Cellulitis, Severe peripheral arterial disease, Chronic alcoholism, Chronic hyponatremia, HTN (hypertension) Condition: Stable Discharge Diet: Cardiac Discharge Activity: Increase activity as tolerated Coding Level of Care Code ED 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
[2022-01-25 14:40] LABS: Anion Gap 14.2 (5-19); Blood Urea Nitrogen 13 mg/dL (8-23); Calcium 8.6 mg/dL (8.5-10.5); Carbon Dioxide 25 mmol/L (22-29); Chloride 94 mmol/L (98-107); Glucose 105 mg/dL (65-115); Osmolality Calculated 268 mOsm/kg (285-295); Potassium 4.2 mmol/L (3.5-5.1); Sodium 129 mmol/L (136-145)
--- NOTE | 2022-01-25 15:47 | PM.HP ---
Providers/Chief Complaint Primary Care Provider: Sachin Gallagher DO Chief Complaint: footpain, swelling History of Present Illness Reginald Pelaez is a 81 year old male with history of hypertension, chronic alcoholism, claudication from severe peripheral artery disease presented to the ER today because of discoloration of second toe on the left foot. Patient was recently in the hospital and discharged on 01/23. During that hospitalization he underwent peripheral angiogram and stent placement along with balloon angioplasty of left common iliac and ostial SFA stenosis. He was discharged on oral Augmentin and Levaquin and advised to follow-up with podiatry as an outpatient as per recommendations from orthopedics for possible amputation. Patient never filled up his antibiotics. Presented back to the ER today because of surrounding skin becoming more red in color along with some pain. Denies of having any fever, discharge or any further autoamputation. On his previous admission his blood cultures were negative. Review of Systems General: Reports: 10 or more systems reviewed and unremarkable except in HPI and below Const: Denies: fever(s), chills, body aches, change in appetite, change in weight, malaise, night sweats, diaphoresis, change in sleep pattern, daytime sleepiness or snoring Eyes: Denies: change in vision, blurry vision, photophobia, eye discomfort or eye discharge ENMT: Denies: throat pain, enlarged tonsils, hoarseness, mouth pain, oral sores, dry mouth, tinnitus, nasal congestion or post nasal drip Card: Denies: chest pain, palpitations, irregular heart rhythm, edema, swelling of feet/ankles, lightheadedness, syncope, pre-syncope, dyspnea on exertion, orthopnea, leg pain with exertion or acrocyanosis Resp: Denies: dyspnea, productive cough, non-productive cough, wheezing, stridor, pain on inspiration, change in phlegm color, hemoptysis or chest congestion GI: Denies: abdominal pain, nausea, vomiting, hematemesis, coffee ground emesis, dysphagia, heartburn, diarrhea, constipation, bloating, GI cramping, change in bowel habits, pain on defecation, hematochezia or melena : Denies: flank pain, difficulty urinating, dysuria, urinary frequency, urinary urgency, urinary hesitancy, urinary dribbling, difficulty starting urination, change in urine stream, nocturia or hematuria Musc: Denies: neck pain, back pain, extremity pain, joint pain, joint swelling, joint redness, joint stiffness or limited range of motion Neuro: Denies: headache(s), numbness in extremities, weakness in extremities, sensory changes, lack of coordination, difficulty walking, frequent falls, dizziness, vertigo, confusion, Slurred speech present, difficulty communicating thoughts or seizure-like activity Psych: Denies: anxiety, depression, mood swings, panic attacks, hopelessness or irritability Endo: Denies: polyuria, polydipsia, tired all the time, cold intolerance, excessive sweating, flushing or heat intolerance Brien/Lymph: Denies: easy bruising or easy bleeding All/Imm: Denies: tongue swelling, facial swelling or acute wheezing Medications/Allergies Home Medications Medication Instructions Recorded Confirmed Last Taken Type multivitamin 1 tab PO DAILY 01/21/22 01/25/22 Unknown History amoxicillin 500 mg-potassium 1 tab PO BID #10 tabs 01/23/22 01/25/22 Unknown Rx clavulanate 125 mg tablet (Augmentin) aspirin 81 mg tablet,delayed 81 mg PO DAILY #30 tabs 01/23/22 01/25/22 Unknown Rx release clopidogrel 75 mg tablet 75 mg PO DAILY #30 tabs 01/23/22 01/25/22 Unknown Rx diltiazem HCl 120 mg 120 mg PO DAILY #30 caps 01/23/22 01/25/22 Unknown Rx capsule,extended release 24 hr (Cardizem CD) ferrous gluconate 324 mg (37.5 mg 324 mg PO BIDWM #60 tabs 01/23/22 01/25/22 Unknown Rx iron) tablet levofloxacin 500 mg tablet 500 mg PO Q24H 5 days #5 tabs 01/23/22 01/25/22 Unknown Rx pantoprazole 40 mg tablet,delayed 40 mg PO DAILY #14 tabs 01/23/22 01/25/22 Unknown Rx release Allergies Allergy/AdvReac Type Severity Reaction Status Date / Time No Known Allergies Allergy Verified 01/25/22 14:53 PFSH Acute PFSH: Medical History (Updated 01/25/22 @ 15:52 by Alexander Patton MD) Chronic alcoholism Chronic hyponatremia Claudication Gangrene due to arterial insufficiency Greater trochanteric bursitis History of nonmelanoma skin cancer HTN (hypertension) Hypokalemia 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 Severe peripheral arterial disease Surgical History History of hip surgery Family History Other No pertinent family history Social History (Updated 01/21/22 @ 17:00 by Alexander Patton MD) Smoking and tobacco status: former smoker Alcohol intake: current Alcohol type: beer, wine and hard liquor Lives independently: Yes Household members: none Housing: House History of recent travel: No Vitals/I&O/Wt Last Vital Signs Temp 97.4 F L 01/25/22 12:04 Pulse 95 01/25/22 13:48 Resp 18 01/25/22 12:04 BP 133/87 01/25/22 13:48 Pulse Ox 95 01/25/22 13:48 O2 Del Method 01/25/22 13:48 Weight last 48 hrs Weight 79.379 kg Physical Exam Narrative: General: No acute distress, AO x3, pleasant, hard of hearing HEENT: PERRLA, pupils bilaterally equal and reactive Chest: Normal vesicular bilateral breath sounds, equal air entry bilaterally CVS: S1-S2 irregularly irregular, no murmurs, no tachycardia, no gallops, no rubs Abdomen: Soft, nontender, no organomegaly, bowel sounds present, morbidly obese Neuro: No focal deficits, no facial deformity, AO x3, power 5/5 in all limbs Extremity: Right leg cool to touch, left leg below knee warm to touch, erythema present around the base of second toe along with whitish discoloration of the base of second toe and bluish blackish discoloration and partial autoamputation of the tip of second toe along with surrounding skin being angry looking, red in color with few pustules at the base of second toe.? Post procedure pulses palpable on the left side Data : 01/25/22 14:00 01/25/22 14:00 A&P Assessment and plan (1) Gangrene due to arterial insufficiency: Status: Acute (2) Severe peripheral arterial disease: Status: Acute (3) HTN (hypertension): Status: Acute (4) Chronic alcoholism: Status: Acute (5) Chronic hyponatremia: Status: Acute (6) Cellulitis: Status: Acute Plan Patient was recently discharged from hospital after peripheral angioplasty with advised to follow-up with podiatry as an outpatient as per orthopedic recommendation on oral antibiotics which he never filled up. Presents back with cellulitis around dry gangrene. Orthopedics again consulted from the ER. Podiatry still not available. IV vancomycin, Zosyn. Repeat blood cultures. Blood cultures from recent hospitalization negative. MRSA negative. Patient does require amputation. Hopefully will go amputation this time with orthopedics. Severe peripheral artery disease: Post left iliac and SFA stenting and balloon angioplasty. Continue with aspirin, Plavix. Statins not started last time as per lipid panel. Will need to continue given recent stenting. Frequently PACs: Found on last admission. Continue with Cardizem 120 mg oral daily. Chronic alcoholism: CIWA protocol. Full code. Protonix for PUD prophylaxis Cardiac diet, n.p.o. after midnight. SCDs for DVT prophylaxis, hold off on medical prophylaxis given possible amputation this admission. Attestations Medical Necessity Statement*: Admission for more than 2 midnights for management of gangrene and celullitis, due to pad, A. 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
[2022-01-25] MEDS: vancomycin 1,000 MG in sodium chloride 0.9% 250 ML 250 MG IV (16:21)
[2022-01-25 16:25] LABS: C Reactive Protein 29.3 mg/L (0.0-4.9)
--- NOTE | 2022-01-25 18:09 | PM.CONSULT ---
Providers/Reason For Consult Consulting Physician/Specialty*: Orion Brunner DO/orthopedic surgery Reason for Consult*: Left foot second toe dry gangrene Attending Physician: Alexander Patton MD Primary Care Provider: Sachin Gallagher DO History of Present Illness History of Present Illness Reginald Pelaez is a 81 year old male who presented to the emergency department with infection of the left second toe with dry gangrene. Patient was recently admitted and did undergo revascularization to the left lower extremity. This point time is been optimized is much as possible for healing of any type of amputation below the knee. He unfortunately represented to the emergency department secondary to redness around the dry gangrene that is tracked up proximally over the dorsal aspect of the foot. He was worked up in the emergency department and the orthopedic team was consulted for evaluation given patient had an increase in white count and will be admitted by the hospitalist team. Denies any fevers at this time. States he like anything possible to be done to preserve as much of his left lower extremity as possible. Review of Systems General: Reports: 10 or more systems reviewed and unremarkable except in HPI and below Medications/Allergies Home Medications Medication Instructions Recorded Confirmed Last Taken Type multivitamin 1 tab PO DAILY 01/21/22 01/25/22 Unknown History amoxicillin 500 mg-potassium 1 tab PO BID #10 tabs 01/23/22 01/25/22 Unknown Rx clavulanate 125 mg tablet (Augmentin) aspirin 81 mg tablet,delayed 81 mg PO DAILY #30 tabs 01/23/22 01/25/22 Unknown Rx release clopidogrel 75 mg tablet 75 mg PO DAILY #30 tabs 01/23/22 01/25/22 Unknown Rx diltiazem HCl 120 mg 120 mg PO DAILY #30 caps 01/23/22 01/25/22 Unknown Rx capsule,extended release 24 hr (Cardizem CD) ferrous gluconate 324 mg (37.5 mg 324 mg PO BIDWM #60 tabs 01/23/22 01/25/22 Unknown Rx iron) tablet levofloxacin 500 mg tablet 500 mg PO Q24H 5 days #5 tabs 01/23/22 01/25/22 Unknown Rx pantoprazole 40 mg tablet,delayed 40 mg PO DAILY #14 tabs 01/23/22 01/25/22 Unknown Rx release Allergies Allergy/AdvReac Type Severity Reaction Status Date / Time No Known Allergies Allergy Verified 01/25/22 14:53 PFSH Acute PFSH: Medical History (Updated 01/25/22 @ 15:52 by Alexander Patton MD) Chronic alcoholism Chronic hyponatremia Claudication Gangrene due to arterial insufficiency Greater trochanteric bursitis History of nonmelanoma skin cancer HTN (hypertension) Hypokalemia 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 Severe peripheral arterial disease Surgical History History of hip surgery Family History Other No pertinent family history Social History (Updated 01/21/22 @ 17:00 by Alexander Patton MD) Smoking and tobacco status: former smoker Alcohol intake: current Alcohol type: beer, wine and hard liquor Lives independently: Yes Household members: none Housing: House History of recent travel: No Vitals/I&O/Wt Last Vital Signs Temp 97.4 F L 01/25/22 12:04 Pulse 73 01/25/22 17:00 Resp 18 01/25/22 12:04 BP 114/66 01/25/22 17:30 Pulse Ox 93 01/25/22 17:00 O2 Del Method 01/25/22 17:00 Weight last 48 hrs Weight 175 lb Physical Exam Narrative: Physical examination of the left lower extremity demonstrates noticeable dry gangrene over the distal aspect of the second toe. At the base of the second toe on the left foot there is some erythema no palpable fluctuance or purulent drainage noted. There is erythema that does track proximally into the dorsal aspect of the foot. No significant edema noted. No bullae or erythema tracking proximally up the foot.. No palpable crepitus or subcutaneous gas noted. Patient is able to wiggle his toes as well as plantarflex and dorsiflex the ankle. Decreased sensation diffusely through the left lower extremity. Patient has faint pulses distally. The foot is warm to the touch. Compartments are soft and compressible throughout the left lower extremity. Data : 01/25/22 14:00 01/25/22 14:00 Micro: Microbiology 01/25/22 15:42 Blood Culture - Preliminary Blood SPECIMEN COLLECTED 01/25/22 15:37 Blood Culture - Preliminary Blood SPECIMEN COLLECTED Xray Ortho: My impression: X-rays of the left foot demonstrate osteomyelitis changes of the distal phalanx of the second toe of the left foot. Healing fractures noted at the third and fourth metatarsals. A&P Assessment and plan (1) Gangrene due to arterial insufficiency: Status: Acute (2) Cellulitis: Status: Acute Plan - Hospitalist team admitted as primary -On IV antibiotics -Orthopedics consulted -Nonweightbearing left lower extremity -X-rays reviewed -Labs reviewed CRP 29.3, WBC 13.2 -N.p.o. at midnight -Stat MRI to evaluate extent of osteomyelitis to preop plan for amputation of second toe MDM: Reginald is a pleasant 81-year-old male with a history of hypertension chronic alcoholism and claudication from peripheral vascular disease. He most recently was hospitalized and discharged on 01/23 where he had a peripheral angiogram as well as a stent placement to the left lower extremity for revascularization. He was sent home for follow-up to discuss with podiatry/orthopedics about possible amputation in the future as his second toe had already begun to auto amputate with dry green green changes at the distal phalanx. Unfortunately patient's developed erythema at the base of the second toe into the dorsum of the foot as well as furthering discoloration of the second toe and as a result the orthopedic surgery team was consulted by the emergency department for evaluation. Patient seen and examined by myself his previous chart reviewed as well as imaging. At this point time he does have dry gangrenous changes as well as acute cellulitic changes at the base of the second toe into the dorsal aspect of the foot. There is no evidence of necrotizing fasciitis as there is no bulla or rapid progressing signs of an infection. At this point patient will likely need a form of toe amputation. I would recommend a stat MRI to evaluate what extent of the toe is osteomyelitis with plan for surgical intervention of left foot second toe amputation. To be admitted by hospitalist team and started on IV antibiotics. Patient should be n.p.o. at midnight in case of any acute changes. This point will wait until her MRI for final surgical intervention. Did discuss given has issue with blood flow that he may end up having multiple surgeries on this given the peripheral vascular disease that is already set in on his foot that is evident with calcifications throughout his foot x-rays. He understands and agrees to proceed with this plan. This point I am hopeful given his revascularization he would hopefully he will some form of surgery of limb salvage to his left foot. 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
[2022-01-25] MEDS: docusate sodium 100 mg Capsule PO (20:20)
[2022-01-25] MEDS: ferrous gluconate 324 mg Tablet PO (20:20)
[2022-01-25 20:22] LABS: Procalcitonin 0.15 ng/mL (0-0.5)
[2022-01-25] MEDS: piperacillin-tazobactam 3.375 GM in sodium chloride 0.9% (plus) 50 ML IV (22:29)
[2022-01-26] VITALS (9 sets, daily range): BP systolic 98–125; BP diastolic 55–70; PULSE 56–94; RESP 15–18; TEMP 36.6–37.1; O2SAT 94–97
[2022-01-26] MEDS: piperacillin-tazobactam 3.375 GM in sodium chloride 0.9% (plus) 50 ML IV ×3 (03:57→20:28)
[2022-01-26 05:04] LABS: Basophils # 0.1 10^3/uL (0.0-0.1); Basophils % 0.8 %; Eosinophils # 0.4 10^3/uL (0.0-0.8); Eosinophils % 3.4 %; Hematocrit 32.9 % (42.0-52.0); Hemoglobin 11.4 g/dL (11.7-16.6); Lymphocytes # 1.4 10^3/uL (0.8-4.8); Mean Corpuscular HGB Conc 34.7 g/dL (30.0-36.0); Mean Corpuscular Volume 100.9 fl (80-94); Mean Platelet Volume 8.9 fL (7.4-10.4); Monocytes # 0.9 10^3/uL (0.2-0.9); Monocytes % 7.6 %; Neutrophils # 8.88 10^3/uL (1.8-7.7); Neutrophils % 75.3 %; Nucleated Red Blood Cells % 0 %; Platelet Count 405 10^3/cmm (130-400); Red Blood Count 3.26 10^6/uL (4.1-5.3); Red Cell Distribution Width 12.6 % (12.1-15.1); White Blood Count 11.8 10^3/uL (4.0-10.0)
[2022-01-26 05:38] LABS: Alanine Aminotransferase 19 U/L (0-41); Albumin Level 2.4 g/dL (3.5-5.2); Alkaline Phosphatase 139 U/L (40-130); Aspartate Amino Transferase 27 U/L (0-40); Blood Urea Nitrogen 11 mg/dL (8-23); Carbon Dioxide 23 mmol/L (22-29); Chloride 99 mmol/L (98-107); Globulin 2.7 g/dL (1.3-4.6); Glucose 99 mg/dL (65-115); Osmolality Calculated 275 mOsm/kg (285-295); Sodium 133 mmol/L (136-145); Total Bilirubin 0.7 mg/dL (0.15-1.2); Total Protein 5.1 g/dL (6.6-8.7)
--- NOTE | 2022-01-26 07:33 | PM.PN ---
Subjective Subjective: Patient seen and evaluated this morning. No issues overnight. Patient has not gotten his MRI of his left foot yet. WBC count is downtrending to 11.8. Vital signs are stable and afebrile. Plan for patient to get MRI today. Plan will be for likely second toe amputation depending MRI results tomorrow. Should be n.p.o. at midnight. Vitals/I&O/Wt Last Vital Signs Temp 98.3 F 01/26/22 03:35 Pulse 81 01/26/22 05:58 Resp 16 01/26/22 03:35 BP 122/68 01/26/22 03:35 Pulse Ox 94 01/26/22 03:35 O2 Del Method 01/26/22 03:35 01/25/22 01/26/22 01/26/22 22:59 06:59 14:59 Intake Total 730 / 730 410 / 1140 Output Total 150 / 150 725 / 875 Balance 580 / 580 -315 / 265 Weight last 48 hrs Weight 176 lb 5.917 oz Weight 175 lb Weight 175 lb Physical Exam Narrative: Examination of the left foot demonstrates warm to the touch. Slight improvement of erythema over the dorsal aspect of the foot which appears receding. Dry gangrene changes at the distal phalanx of the second toe of the left foot. No purulent drainage or foul smell noted. Patient is able to wiggle toes as well as plantarflex and dorsiflex his ankle. Faint distal pulses palpable, no signs of rapid progressing infection of subcu gas or bulla Data : 01/26/22 04:23 01/26/22 04:23 Micro: Microbiology 01/25/22 15:42 Blood Culture - Preliminary Blood SPECIMEN COLLECTED 01/25/22 15:37 Blood Culture - Preliminary Blood SPECIMEN COLLECTED A&P Assessment and plan (1) Gangrene due to arterial insufficiency: Status: Acute (2) Cellulitis: Status: Acute Plan - May have a diet today unless needs to be n.p.o. for MRI -MRI left foot today -IV antibiotics per primary team -Internal medicine on board as primary and appreciate their treatment -Patient to be n.p.o. at midnight tonight -Plan for possible OR tomorrow for left foot second toe amputation depending on MRI results. 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
[2022-01-26] MEDS: docusate sodium 100 mg Capsule PO ×2 (09:12→18:02)
[2022-01-26] MEDS: pantoprazole DR 40 mg Tablet PO (09:12)
[2022-01-26] MEDS: multivitamin therapeutic Tablet 1 TAB PO (09:12)
[2022-01-26] MEDS: folic acid 1 mg Tablet PO (09:12)
[2022-01-26] MEDS: thiamine 100 mg Tablet PO (09:12)
[2022-01-26] MEDS: aspirin 81 mg EC Tablet PO (09:12)
[2022-01-26] MEDS: clopidogrel 75 mg Tablet PO (09:13)
[2022-01-26] MEDS: dilTIAZem ER (24HR) 120 mg Capsule PO (09:13)
[2022-01-26] MEDS: ferrous gluconate 324 mg Tablet PO ×2 (09:13→18:02)
--- NOTE | 2022-01-26 10:00 | MR_ITS ---
WS: [id number] MRI OF THE LEFT FOOT WITHOUT AND WITH GADOLINIUM ENHANCEMENT INDICATION: Osteomyelitis. TECHNIQUE: Coronal PD, coronal T2, axial T2, axial PD, axial T1, sagittal T1, sagittal STIR, post maranda olinium multiplanar imaging was obtained with fat saturation technique. FINDINGS some images degraded by motion. Prior postoperative changes resection of the 2nd distal phalanx. Plantar erosive changes involving th e 2nd mid phalanx with relatively well-preserved T1 fatty marrow signal. Soft tissue gas in this area degrades some images. Associated enhancement and reactive. Normal bone marrow signal in the 2nd prox imal phalanx. Diffuse soft tissue enhancement about the 2nd phalanges extending distally. No evidence of drainable abscess or fluid collection. Healing fractures of the base of the 2nd and 3rd metatarsals. Healing fractures involving the 3rd and 4th metatarsal necks. Osteopenia. Vascular calcification. Plantar calcaneal spurring. Hammertoe deformities. Degenerative arthritis at the 1st MCP. MR/MR foot LT wo/w con [id number] IMPRESSION: 1. 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 2. Soft tissue gas with artifact and chronic appearing erosive changes with en hancement involving the 2nd mid phalanx. Associated enhancement with relative p reservation of the Fatty bone marrow T1 signal. Enhancement may be reactive but early osteomyelitis difficult to exclude. 3. T1 bone marrow signal appears preserved in the 2nd proximal phalanx without evidence of osteomyelitis in this area. 4. Diffuse soft tissue edema involving the 2nd phalangeal soft tissues. 5. No evidence of drainable abscess or fluid collection. 6. Healing fractures of the base of the 2nd and 3rd metatarsals. Healing fract ures involving the 3rd and 4th metatarsal necks.
--- NOTE | 2022-01-26 10:57 | PC.CHAP ---
Pastoral Care Encounter/Spiritual Assessment Type of Contact [] Declined full time staff interpreter visit [] Patient/Family/Request visit [] Outpatient visit [] Follow-up visit [] Physician referral [] Code/Alert [x] Routine visit [] Staff referral [] Actively dying [] Patient sleeping [] Family support [] [] Out of room [] Palliative care [] [] Receiving care in room [] Pre-surgical visit [] Trauma [] Long length of stay [] ICU visit [] Other: Relational/Emotional Strength [] Patient feels connected with others/family/visitors/staff [] Distress [] Loneliness/isolation [] Abandonment Spirituality of Patient [x ] Person of Jovana [] Attends Anglican of their Jovana [] Believes in Prayer [] Reads Bible or Scientology materials [x] There are Spiritual issues to be addressed Quality Measurement Specialist Interventions [x] Prayer [] Active listening [x] Non-anxious presence [] Spiritual/emotional support [] Crisis/trauma care [] Spiritual counseling [] Bereavement support [] Provided bereavement packet [] Provided Bible/devotional materials [] Provided toy/stuffed animal, coloring book to patient or family member [] Provided Communion [] Anointing/Levan [] Salvation [x] Completed spiritual assessment [] Other: Impact on Illness or Injury [] Angry [] Fearful [] Anxious [] Often cries [] Exhaustion [] Unable to work [] Unable to attend confucianist [] Unable to walk/stand [] Unable to read [] Unable to drive [] Unable to eat/drink [] Unable to sleep [] Unable to be with family [] Patient intubated [] Other: Summary min Time spent with patient 10
--- NOTE | 2022-01-26 11:27 | PM.PN ---
Subjective Subjective: Seen this morning. Patient denies any pain at the toe area. He says he will be going for debridement tomorrow in the OR. He has no concerns or complaints at this time. Denies cough, shortness of breath Vitals/I&O/Wt Last Vital Signs Temp 98.2 F 01/26/22 07:41 Pulse 94 01/26/22 07:41 Resp 16 01/26/22 07:41 BP 108/67 01/26/22 07:41 Pulse Ox 95 01/26/22 07:41 O2 Del Method 01/26/22 07:41 01/25/22 01/26/22 01/26/22 22:59 06:59 14:59 Intake Total 730 / 730 410 / 1140 410 / 410 Output Total 150 / 150 725 / 875 400 / 400 Balance 580 / 580 -315 / 265 Weight last 48 hrs Weight 80 kg Weight 79.379 kg Weight 79.379 kg Physical Exam Narrative: General: No acute distress, AO x3, pleasant, hard of hearing Chest: Clear to auscultation bilaterally no wheezes or rhonchi CVS: S1-S2 irregularly irregular, no murmurs, no tachycardia, Abdomen: Soft, nontender, no organomegaly, bowel sounds present, morbidly obese Neuro: No focal deficits Extremity: Dry gangrene over distal aspect of second toe present. Erythema also present. No palpable fluctuance or purulent drainage noted. Patient able to wiggle his toes and plantarflex and dorsiflex ankle. Does have faint pulses distally. Foot is warm to touch. Data : 01/26/22 04:23 01/26/22 04:23 Micro: Microbiology 01/25/22 15:42 Blood Culture - Preliminary Blood SPECIMEN COLLECTED 01/25/22 15:37 Blood Culture - Preliminary Blood SPECIMEN COLLECTED A&P Assessment and plan (1) Cellulitis: Status: Acute (2) Gangrene due to arterial insufficiency: Status: Acute (3) Chronic hyponatremia: Status: Acute (4) Chronic alcoholism: Status: Acute (5) HTN (hypertension): Status: Acute (6) PAC (premature atrial contraction): Status: Acute (7) Severe peripheral arterial disease: Status: Acute Plan #Dry gangrene due to peripheral arterial disease #Severe peripheral arterial disease #Hypertension #Chronic alcoholism #Chronic hyponatremia #Cellulitis of left foot toes ? Patient recently discharged from hospital after peripheral angioplasty advised to follow-up with podiatry as an outpatient as per orthopedic recommendations. He was given oral antibiotics at discharge but she never filled. He presented back with cellulitis and dry gangrene. See hospital discharge summary from 01/23 for further details on previous hospital stay. ? Orthopedics saw patient in consultation. Continue IV vancomycin and Zosyn. Repeat blood cultures. ? MRI scheduled to be done today to rule out osteomyelitis and assess the extent of pathology -Plan for debridement/amputation tomorrow in OR ? Continue aspirin and Plavix. Statin was not started at previous admission. Will prefer to continue aspirin Plavix given recent stenting ? Continue Cardizem 120 daily ? CIWA protocol ? Continue Protonix -Cardiac diet -N.p.o. after midnight tonight -SCDs Attestations Medical Necessity Statement*: Possible 24 to 48-hour stay for debridement/amputation of gangrenous toe. 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
--- NOTE | 2022-01-26 11:54 | PC.NURSE ---
to MRI for his left foot ushered by kathryn Marshall via wheelchair.
[2022-01-26] MEDS: gadobenate dimeglumine 20 mL vial IV (12:26)
[2022-01-27] VITALS (10 sets, daily range): BP systolic 90–138; BP diastolic 53–73; PULSE 69–102; RESP 12–20; TEMP 36.1–37.1; O2SAT 92–97
[2022-01-27] MEDS: piperacillin-tazobactam 3.375 GM in sodium chloride 0.9% (plus) 50 ML IV ×2 (03:40→21:50)
--- NOTE | 2022-01-27 08:11 | P.PN_ITS ---
Subjective Subjective: Patient seen and examined this morning. Reviewed MRI results. Discussed findings with patient no significant abscess or osteomyelitis noted proximal to the area of necrosis. We had discussion however he does have poor soft tissue envelope over the base of the middle and proximal phalanx which w ould likely not heal and have wound issues. At this point time we discussed doing a second toe amputation at the level of the MTP joint of the second toe where I can develop appropriate soft tissue flaps plantar and dorsal at good good soft tissue envelope. Patient at this point understands and agrees to proceed with current plan. All questions answered. Vitals/I&O/Wt Last Vital Signs Temp 98.3 F 01/27/22 03:44 Pulse 80 01/27/22 03:44 Resp 16 01/27/22 03:44 BP 104/59 01/27/22 03:44 Pulse Ox 93 01/27/22 03:44 O2 Del Method 01/27/22 03:44 01/26/22 01/27/22 01/27/22 22:59 06:59 14:59 Intake Total 770 / 1420 50 / 1470 Output Total 250 / 650 350 / 1000 Balance 520 / 770 -300 / 470 Weight last 48 hrs Weight 170 lb 12.8 oz Weight 176 lb 5.917 oz Weight 175 lb Weight 175 lb Physical Exam Narrative: General: No acute distress, pleasant, hard of hearing Ortho exam: Dry gangrene over distal aspect of left second toe present. Stable and receding from the dorsum of the foot. No palpable fluctuance or purulent drainage noted patient wiggle toes as well as plantarflex dorsiflex ankle. Erythematous and macerated tissue over the middle and proximal phalanx of the second toe. Patient has faint pulses distally foot is warm to the touch. Data : 01/26/22 04:23 01/26/22 04:23 Micro: Microbiology 01/25/22 15:42 Blood Culture - Preliminary Blood NEGATIVE TO DATE 01/25/22 15:37 Blood Culture - Preliminary Blood NEGATIVE TO DATE A&P Assessment and plan (1) Gangrene due to arterial insufficiency: Status: Acute (2) Cellulitis: Status: Acute Plan - N.p.o. since midnight -MRI results reviewed -Continue antibiotics -Internal medicine as primary team -Nonweightbearing left lower extremity -Plan for or today for left second toe amputation Patient understands and agrees with current plan. All questions answered. Detail the risk benefits complication alternatives to surgical intervention patient elects to proceed with surgery. Understands risks include but are not limited to make it better or make it worse, worsening infection further vascular insufficiency wound dehiscence potential loss of function to the foot or further amputations. With understanding he agrees to proceed Attestations Medical Necessity Statement*: Patient has dry gangrene of the left second toe will require amputation of the left second toe with postoperative care and rehab. 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
[2022-01-27] MEDS: thiamine 100 mg Tablet PO (08:44)
[2022-01-27] MEDS: docusate sodium 100 mg Capsule PO ×2 (08:44→17:19)
[2022-01-27] MEDS: ferrous gluconate 324 mg Tablet PO ×2 (08:44→17:19)
[2022-01-27] MEDS: folic acid 1 mg Tablet PO (08:44)
[2022-01-27] MEDS: dilTIAZem ER (24HR) 120 mg Capsule PO (08:44)
[2022-01-27] MEDS: pantoprazole DR 40 mg Tablet PO (08:44)
[2022-01-27] MEDS: multivitamin therapeutic Tablet 1 TAB PO (08:45)
[2022-01-27] MEDS: aspirin 81 mg EC Tablet PO (08:45)
[2022-01-27 08:50] LABS: Basophils # 0.1 10^3/uL (0.0-0.1); Basophils % 0.7 %; Eosinophils # 0.3 10^3/uL (0.0-0.8); Eosinophils % 2.6 %; Hematocrit 34.1 % (42.0-52.0); Hemoglobin 12.4 g/dL (11.7-16.6); Lymphocytes # 1.3 10^3/uL (0.8-4.8); Lymphocytes % 12.9 %; Mean Corpuscular HGB Conc 36.4 g/dL (30.0-36.0); Mean Corpuscular Hemoglobin 37.5 pg (28.0-34.0); Mean Platelet Volume 8.8 fL (7.4-10.4); Monocytes # 0.7 10^3/uL (0.2-0.9); Monocytes % 7.5 %; Neutrophils % 74.7 %; Nucleated Red Blood Cells % 0 %; Platelet Count 383 10^3/cmm (130-400); Red Blood Count 3.31 10^6/uL (4.1-5.3); Red Cell Distribution Width 12.7 % (12.1-15.1); White Blood Count 9.8 10^3/uL (4.0-10.0)
[2022-01-27 09:04] LABS: Blood Urea Nitrogen 8 mg/dL (8-23); Calcium 8.1 mg/dL (8.5-10.5); Carbon Dioxide 22 mmol/L (22-29); Chloride 100 mmol/L (98-107); Glucose 95 mg/dL (65-115); Magnesium 1.4 mg/dL (1.7-2.3); Osmolality Calculated 268 mOsm/kg (285-295); Sodium 130 mmol/L (136-145)
[2022-01-27 09:13] LABS: Anion Gap 11.9 (5-19); Potassium 3.9 mmol/L (3.5-5.1)
--- NOTE | 2022-01-27 10:27 | PM.PN ---
Subjective Subjective: Seen this morning. No acute events overnight. Patient is n.p.o. for his surgery today. He will be going in at 1:00. Vitals/I&O/Wt Last Vital Signs Temp 98.3 F 01/27/22 03:44 Pulse 69 01/27/22 08:00 Resp 16 01/27/22 08:00 BP 121/71 01/27/22 08:00 Pulse Ox 92 01/27/22 08:00 O2 Del Method 01/27/22 03:44 01/26/22 01/27/22 01/27/22 22:59 06:59 14:59 Intake Total 770 / 1420 50 / 1470 50 / 50 Output Total 250 / 650 350 / 1000 Balance 520 / 770 -300 / 470 50 / 50 Weight last 48 hrs Weight 77.474 kg Weight 80 kg Weight 79.379 kg Weight 79.379 kg Physical Exam Narrative: General: No acute distress, AO x3, pleasant, hard of hearing Chest: Clear to auscultation bilaterally no wheezes or rhonchi CVS: S1-S2 irregularly irregular, no murmurs, no tachycardia, Abdomen: Soft, nontender, no organomegaly, bowel sounds present, morbidly obese Neuro: No focal deficits Extremity: Dry gangrene over distal aspect of second toe present. Erythema also present. No palpable fluctuance or purulent drainage noted. Patient able to wiggle his toes and plantarflex and dorsiflex ankle. Does have faint pulses distally. Foot is warm to touch. Data : 01/27/22 08:07 01/27/22 08:07 Micro: Microbiology 01/25/22 15:42 Blood Culture - Preliminary Blood NEGATIVE TO DATE 01/25/22 15:37 Blood Culture - Preliminary Blood NEGATIVE TO DATE A&P Assessment and plan (1) Cellulitis: Status: Acute (2) Gangrene due to arterial insufficiency: Status: Acute (3) Chronic hyponatremia: Status: Acute (4) Chronic alcoholism: Status: Acute (5) HTN (hypertension): Status: Acute (6) PAC (premature atrial contraction): Status: Acute (7) Severe peripheral arterial disease: Status: Acute Plan #Dry gangrene due to peripheral arterial disease #Severe peripheral arterial disease #Hypertension #Chronic alcoholism #Chronic hyponatremia #Cellulitis of left foot toes ? Patient recently discharged from hospital after peripheral angioplasty advised to follow-up with podiatry as an outpatient as per orthopedic recommendations. He was given oral antibiotics at discharge but she never filled. He presented back with cellulitis and dry gangrene. See hospital discharge summary from 01/23 for further details on previous hospital stay. ? Orthopedics saw patient in consultation. Continue IV vancomycin and Zosyn. Repeat blood cultures. ? MRI scheduled to be done today to rule out osteomyelitis and assess the extent of pathology -Plan for debridement/amputation today in OR ? Continue aspirin and Plavix. Statin was not started at previous admission. Will prefer to continue aspirin Plavix given recent stenting ? Continue Cardizem 120 daily ? CIWA protocol ? Continue Protonix -Cardiac diet -N.p.o. for his procedure today at 1 PM. -SCDs Attestations Medical Necessity Statement*: Possible 24 to 48-hour stay for debridement/amputation of gangrenous toe. 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
--- NOTE | 2022-01-27 10:43 | P.ANESASSM_ITS ---
Pre-Anesthetic Assessment Height/Weight: Height 1.75 m Weight 77.474 kg Temp Pulse Resp BP Pulse Ox O2 Del Method 98.7 F 76 20 H 106/63 95 01/27/22 10:33 01/27/22 10:33 01/27/22 10:33 01/27/22 10:33 01/27/22 10:33 01/27/22 10:33 Preop Diagnosis: Critical limb ischemia/ Gangrenous left toe Operation Date: 01/27/22 10:40 Proposed Procedures p left second toe amputation(Left) - DO Ina Naidu anesthetic complications: None Was Beta Haley taken within 24 hours: N/A Was Clonidine taken within 24 hours: N/A Last intake: Intake - patient states he ate 2 plain [employer] at 0800. Amount confirmed by nurse who said she saw him open package and eat 2 before stopping him. Last Liquid Date 01/26/22 Last Liquid Time 18:00 Last Solid Date 01/27/22 Last Solid Time 08:00 Social Alcohol and Tobacco alcoholism Exam alert, oriented x 3, clear to auscultation bilaterally and regular rate & rhythm Airway Mallampati: Class II Dentition: false Comments: Comments: hx malignant neoplasm of glottis s/p radiation. No residual absnormalities visualized on direct laryngoscopy and on neck CT (other than mild asymmetricy of L tonsillar fossa) in 2016. CV/HEM Atrial Fibrillation, Hypertension and Peripheral Vascular Disease Metabolic chronic hyponatremia Medications/Allergies Home Medications Medication Instructions Recorded Confirmed Last Taken Type multivitamin 1 tab PO DAILY 01/21/22 01/25/22 Unknown History amoxicillin 500 mg-potassium 1 tab PO BID #10 tabs 01/23/22 01/25/22 Unknown Rx clavulanate 125 mg tablet (Augmentin) aspirin 81 mg tablet,delayed 81 mg PO DAILY #30 tabs 01/23/22 01/25/22 Unknown Rx release clopidogrel 75 mg tablet 75 mg PO DAILY #30 tabs 01/23/22 01/25/22 Unknown Rx diltiazem HCl 120 mg 120 mg PO DAILY #30 caps 01/23/22 01/25/22 Unknown Rx capsule,extended release 24 hr (Cardizem CD) ferrous gluconate 324 mg (37.5 mg 324 mg PO BIDWM #60 tabs 01/23/22 01/25/22 Unknown Rx iron) tablet levofloxacin 500 mg tablet 500 mg PO Q24H 5 days #5 tabs 01/23/22 01/25/22 Unknown Rx pantoprazole 40 mg tablet,delayed 40 mg PO DAILY #14 tabs 01/23/22 01/25/22 Unknown Rx release Allergies Allergy/AdvReac Type Severity Reaction Status Date / Time No Known Allergies Allergy Verified 01/27/22 10:35 Current Medications Generic Name Dose Route Start Last Admin Trade Name Steve PRN Reason Stop Dose Admin Aspirin 81 mg 01/26/22 09:00 01/27/22 08:45 Aspirin 81 Mg Ec Tablet PO 81 mg DAILY [facility] Administration Clopidogrel Bisulfate 75 mg 01/26/22 09:00 01/27/22 08:57 Clopidogrel 75 Mg Tablet PO Not Given DAILY [facility] Diltiazem HCl 120 mg 01/26/22 09:00 01/27/22 08:44 Diltiazem Er (24hr) 120 Mg Capsule PO 120 mg DAILY [facility] Administration Docusate Sodium 100 mg 01/25/22 19:45 01/27/22 08:44 Docusate Sodium 100 Mg Capsule PO 100 mg BID [facility] Administration Ferrous Gluconate 324 mg 01/25/22 19:45 01/27/22 08:44 Ferrous Gluconate 324 Mg Tablet PO 324 mg BIDWM [facility] Administration Folic Acid 1 mg 01/26/22 09:00 01/27/22 08:44 Folic Acid 1 Mg Tablet PO 1 mg DAILY [facility] Administration Piperacillin Sod/Tazobactam 50 mls @ 12.5 mls/hr 01/25/22 20:00 01/27/22 07:40 Sod 3.375 gm/ Sodium Chloride IV Infused Q8H [facility] Infusion Multivitamins Therapeutic 1 tab 01/26/22 09:00 01/27/22 08:45 Multivitamin Therapeutic Tablet PO 1 tab DAILY [facility] Administration Pantoprazole Sodium 40 mg 01/26/22 09:00 01/27/22 08:[address] 40 Mg Tablet PO 40 mg DAILY [facility] Administration Thiamine Mononitrate 100 mg 01/26/22 09:00 01/27/22 08:44 Thiamine 100 Mg Tablet PO 100 mg DAILY [facility] Administration PFSH Anesthesia Medical History (Updated 01/25/22 @ 15:52 by Alexander Patton MD) Chronic alcoholism Chronic hyponatremia Claudication Gangrene due to arterial insufficiency Greater trochanteric bursitis History of nonmelanoma skin cancer HTN (hypertension) Hypokalemia 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 Severe peripheral arterial disease Surgical History History of hip surgery Family History Other No pertinent family history Social History (Updated 01/21/22 @ 17:00 by Alexander Patton MD) Smoking and tobacco status: former smoker Alcohol intake: current Alcohol type: beer, wine and hard liquor Lives independently: Yes Household members: none Housing: House History of recent travel: No Data Anesthesia : 01/27/22 08:07 01/27/22 08:07 Short CBC 01/25/22 01/26/22 01/27/22 Range/Units 14:00 04:23 08:07 WBC 13.2 H 11.8 H 9.8 (4.0-10.0) 10^3/uL Hgb 13.0 11.4 L 12.4 (11.7-16.6) g/dL Hct 36.8 L 32.9 L 34.1 L (42.0-52.0) % MCV 100.5 H 100.9 H 103.0 H (80-94) fl Plt Count 467 H 405 H 383 (130-400) 10^3/cmm Neut % (Auto) 74.2 75.3 74.7 % Neut # (Auto) 9.76 H 8.88 H 7.30 (1.8-7.7) 10^3/uL BMP 01/25/22 01/26/22 01/27/22 14:00 04:23 08:07 Sodium 129 L 133 L 130 L Potassium 4.2 4.0 3.9 Chloride 94 L 99 100 Carbon Dioxide 22 BUN 13 11 8 Creatinine 0.9 0.9 0.8 Glucose 105 99 95 Calcium 8.6 8.0 L 8.1 L Liver Function 01/26/22 Range/Units 04:23 Total Bilirubin 0.7 (0.15-1.2) mg/dL AST 27 (0-40) U/L ALT 19 (0-41) U/L Alkaline Phosphatase 139 H (40-130) U/L Albumin 2.4 L (3.5-5.2) g/dL Coags 01/25/22 14:00 C-Reactive Protein 29.3 H Microbiology 01/25/22 15:42 Blood Culture - Preliminary Blood NEGATIVE TO DATE 01/25/22 15:37 Blood Culture - Preliminary Blood NEGATIVE TO DATE Cardiac Studies: Echocardiogram 01/21/22
--- NOTE | 2022-01-27 11:45 | W.PM.OPSUD ---
Surgery/Procedure H&P Update DATE OF PROCEDURE: January 27, 2022 DATE H&P PERFORMED: 01/21/22 CHANGES TO PREVIOUS DOCUMENTATION: None PREOP DIAGNOSIS: Critical limb ischemia/ Gangrenous left toe PRIMARY INDICATION FOR PROCEDURE: Same PLANNED PROCEDURE: Operation Date: 01/27/22 10:40 Proposed Procedures p left second toe amputation(Left) - Orion Brunner DO
[2022-01-27] MEDS: lidocaine 1% INJ 50 mL 7 ML INJECTION (12:43)
--- NOTE | 2022-01-27 13:05 | PM.OP2 ---
Brief Operative Note Date of procedure: 01/27/22 Pre-op diagnosis: Dry gangrene left second toe Post-op diagnosis: same Procedure Done: Left second toe amputation at MTP joint Estimated blood loss (mL): 5 Complications: None Post-op Plan: Patient recovered in PACU. Patient stable condition. Patient to return to the floor. Continue IV antibiotics. Patient dressing on in place. Nonweightbearing left lower extremity. Patient to return to the floor. Condition: stable Disposition: floor Coding Level of Care Code Acute Miller Head Assistant Wet Process for Jorge Betancourt
--- NOTE | 2022-01-27 13:08 | PM.OP ---
Operative Report Date of procedure: January 27, 2022 Pre-op diagnosis: Preop Diagnosis Critical limb ischemia/ Gangrenous left toe Post-op diagnosis: other (Dry gangrene left second toe) Post-op findings: See operative note Procedure done: Left second toe amputation at MTP joint Implants: None Specimens removed/disposition: Second toe amputation removed and sent for pathology Pathology: Second toe amputation removed and sent for pathology Surgeon: Orion Brunner DO Estimated blood loss (mL): 5 Esmarch tourniquet used for 26-minute IV fluids: See anesthesia record Complications: None Findings: See operative note Condition: stable Disposition: floor Brief History: Patient been seen and evaluated on his initial date of hospitalization by myself. He had dry gangrene noted with proximal tracking erythema over the dorsum of the foot. The erythema and cellulitis and subsequently receded during his admission and management by hospitalist team with IV antibiotics. 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 Patient did have healing third and fourth metatarsal neck fractures. From the standpoint I reviewed with patient he is already near auto amputated at the level of the middle phalanx. Evaluating his soft tissue envelope at the base of the proximal phalanx in the webspace is very macerated as well as erythematous and infectious in nature. As result we shared in discussion about performing surgery as far as the risk benefits complications alternatives to surgery. Risks include make it better, make it worse, blood clot, heart attack, stroke, on table, infection, further gangrenous changes throughout the rest of the foot and potential further surgeries of more amputations. However through shared decision making with patient he would like to proceed with the most limb salvage option as possible. My recommendation would be to perform a disarticulation of the second toe at the MTP joint this would allow us to make incision into more healthy tissue at the base of the second toe to create appropriate flaps as well as to excise patient's dry gangrenous changes at the middle phalanx as well as to have good soft tissue to heal surgical flaps. Patient understands and agrees to proceed with current plan. All questions answered Procedure: Patient was seen and evaluated in the preoperative suite. Consent was reviewed with patient confirming planned procedure of left second toe amputation at the level of the MTP joint. Patient understands and agrees with plan. He was seen by the anesthesia team. Once preoperative clearance performed he was then taken to the operative suite and left on the gurney. He then underwent anesthesia per the anesthesia department. There were left lower extremity was then prepped and draped in standard orthopedic fashion utilizing Betadine given patient's dry gangrene second toe. Patient received appropriate antibiotics from the floor and is on empiric coverage at this time. Final timeout performed. Esmarch was used exsanguinate as well as be a tourniquet just above the ankle. Once this was secured we then proceeded with surgery. The left second toe identified and's skin marker was used to britney the level of the MTP joint anterior and posterior flaps were planned. At this point used 15 blade for scalpel excision creating a fishmouth anterior and posterior flap. I then had to make an incision in the webspaces creating ultimately and H-shaped flap. Sharp scalpel was used to excise the extensor tendon as well as the flexor tendon. Care was made to not violate the bundles to the great toe and third toe. Sharp scalpel excision was used and then the toe was then disarticulated through the joint capsule at the second MTP joint. Toe was then removed and sent to pathology. At this point in time wound was then thoroughly inspected. Neurovascular bundle to the second toe was then coagulated with electrocautery. Flaps and closure was deemed appropriate. I utilized a rongeur to remove the cartilage of the metatarsal head. The wound bed was then thoroughly irrigated. Next I utilized a 2-0 Vicryl suture just suture the flexor tendon to the extensor tendon. Once this was then performed I then placed deep 2-0 Vicryl suture to secure the flap. And then some subsequently used 4-0 nylon interrupted fashion suture to close her anterior posterior flap as well as the H- incision within the first and second webspace. After appropriate closure tourniquet was then removed Xeroform applied hemostasis adequate. 4 x 4's was placed into the void of the second toe and was removed Curlex and Pawan wrap was applied. Patient was then awakened from anesthesia and taken to PACU in stable condition. Disposition: Patient taken to PACU in stable condition. Leave dressing on in place for 2 days. Will return to the floor. Continue empiric antibiotics per primary team. Pain control. Patient should be nonweightbearing to left lower extremity. He will follow-up with me in office in 2 weeks upon discharge.
--- NOTE | 2022-01-27 13:12 | ANE.PACU2 ---
Inpatient post-anesthesia follow up: Airway intact: Yes Vital signs: Temperature 98.7 F Pulse Rate 76 Respiratory Rate 20 Blood Pressure 106/63 Pulse Oximetry 95 Oxygen Delivery Me thod Room Air Oxygen Flow Rate Fraction of Inspir ed Oxygen Hydration adequate: Yes Nausea and vomiting: No Pain level: 1 Mental status: Baseline
--- NOTE | 2022-01-27 14:32 | PM.PACU ---
PACU note Narrative: Patient taken to PACU in stable condition and recovering well. Patient's dressing appeared somewhat tight as there did appear to be some sluggish capillary refill to the third toe. Dressing was subsequently taken down and appeared too much bulky tissue 4 x 4's were placed into the webspace it was potentially affecting patient's blood toe to the third toe. This was then taken down minimal dressing applied in the webspace as well as a gentle Kerlix and Pawan wrap was applied. This did improve his blood flow to the third toe and had capillary refill less than 3 seconds. The great toe as well as the fourth and fifth had capillary refill less than 3 seconds. Patient wiggling toes. Exam: awake (See narrative for full examination) Disposition: back to floor
[2022-01-28 00:37] VITALS: BP 104/55; PULSE 82; RESP 20; TEMP 36.8; O2SAT 94
[2022-01-28] MEDS: piperacillin-tazobactam 3.375 GM in sodium chloride 0.9% (plus) 50 ML IV ×3 (04:57→22:39)
[2022-01-28 05:00] VITALS: BP 110/78; PULSE 72; RESP 22; TEMP 36.8; O2SAT 97
[2022-01-28 05:12] LABS: Basophils # 0.1 10^3/uL (0.0-0.1); Eosinophils # 0.2 10^3/uL (0.0-0.8); Eosinophils % 2.3 %; Hematocrit 33.8 % (42.0-52.0); Hemoglobin 11.9 g/dL (11.7-16.6); Lymphocytes # 1.3 10^3/uL (0.8-4.8); Lymphocytes % 12.2 %; Mean Corpuscular HGB Conc 35.2 g/dL (30.0-36.0); Mean Corpuscular Hemoglobin 35.8 pg (28.0-34.0); Mean Corpuscular Volume 101.8 fl (80-94); Mean Platelet Volume 9.7 fL (7.4-10.4); Monocytes # 0.9 10^3/uL (0.2-0.9); Monocytes % 8.9 %; Neutrophils # 7.82 10^3/uL (1.8-7.7); Neutrophils % 74.6 %; Nucleated Red Blood Cells % 0 %; Platelet Count 328 10^3/cmm (130-400); Red Blood Count 3.32 10^6/uL (4.1-5.3); Red Cell Distribution Width 12.6 % (12.1-15.1); White Blood Count 10.5 10^3/uL (4.0-10.0)
[2022-01-28 06:02] LABS: Blood Urea Nitrogen 6 mg/dL (8-23); Calcium 8.2 mg/dL (8.5-10.5); Carbon Dioxide 21 mmol/L (22-29); Chloride 99 mmol/L (98-107); Glucose 118 mg/dL (65-115); Magnesium 1.3 mg/dL (1.7-2.3); Osmolality Calculated 263 mOsm/kg (285-295); Sodium 127 mmol/L (136-145)
--- NOTE | 2022-01-28 07:13 | P.PN_ITS ---
Subjective Subjective: Patient seen and examined this morning. No issues overnight. Patient states he had some pain last night in his left foot. Per nursing patient had an okay night. Mild dressing saturation. Dressings on and in place Vitals/I&O/Wt Last Vital Signs Temp 98.3 F 01/28/22 05:00 Pulse 72 01/28/22 05:00 Resp 22 H 01/28/22 05:00 BP 110/78 01/28/22 05:00 Pulse Ox 97 01/28/22 05:00 O2 Del Method 01/27/22 16:02 01/27/22 01/28/22 01/28/22 22:59 06:59 14:59 Intake Total 480 / 580 290 / 870 Output Total 300 / 300 625 / 925 Balance 180 / 280 -335 / -55 Weight last 48 hrs Weight 176 lb Weight 170 lb 12.8 oz Physical Exam Narrative: Examination left lower extremity dressing on in place mild bloody drainage noted on patient's gauze of dressing. Otherwise clean dry and intact. Patient able to wiggle toes. Patient toes are warm and perfused. First, fourth and fifth toes brisk capillary refill less than 2 seconds subtle delay in cap refill on the third toe less than 3 seconds. Data : 01/28/22 04:22 01/28/22 05:34 A&P Assessment and plan (1) Gangrene due to arterial insufficiency: Status: Acute (2) Cellulitis: Status: Acute Plan - Dressing on in place will be changed tomorrow -Nonweightbearing left lower extremity -Continue to keep left foot warm help encourage blood flow -IV antibiotics per primary team -Internal medicine is primary and appreciate their management -Orthopedics will plan for a dressing change tomorrow. Suspect at that time pa alex will likely be stable for discharge from orthopedic standpoint. 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
[2022-01-28 07:41] VITALS: BP 125/72; PULSE 79; RESP 18; TEMP 36.7; O2SAT 90
--- NOTE | 2022-01-28 07:51 | PM.PN ---
Subjective Subjective: Patient had bleeding on ambulation from surgical site after surgery yesterday. He is now on bedrest. He did not work with physical therapy today. Dressing changes being planned for tomorrow. He feels well otherwise and has no complaints at this time. Vitals/I&O/Wt Last Vital Signs Temp 98.0 F 01/28/22 07:41 Pulse 79 01/28/22 07:41 Resp 18 01/28/22 07:41 BP 125/72 01/28/22 07:41 Pulse Ox 90 01/28/22 07:41 O2 Del Method 01/28/22 07:41 01/27/22 01/28/22 01/28/22 22:59 06:59 14:59 Intake Total 480 / 580 290 / 870 Output Total 300 / 300 625 / 925 Balance 180 / 280 -335 / -55 Weight last 48 hrs Weight 79.832 kg Weight 77.474 kg Physical Exam Narrative: General: No acute distress, AO x3, pleasant, hard of hearing Chest: Clear to auscultation bilaterally no wheezes or rhonchi CVS: S1-S2 irregularly irregular, no murmurs, no tachycardia, Abdomen: Soft, nontender, no organomegaly, bowel sounds present, morbidly obese Neuro: No focal deficits Extremity: Patient able to wiggle his toes and plantarflex and dorsiflex ankle. Does have faint pulses distally. Foot is warm to touch. Left foot covered with Band-Aid. I did not take dressing down. Data : 01/28/22 04:22 01/28/22 05:34 A&P Assessment and plan (1) Cellulitis: Status: Acute (2) Gangrene due to arterial insufficiency: Status: Acute (3) Chronic hyponatremia: Status: Acute (4) Chronic alcoholism: Status: Acute (5) HTN (hypertension): Status: Acute (6) PAC (premature atrial contraction): Status: Acute (7) Severe peripheral arterial disease: Status: Acute Plan #Dry gangrene due to peripheral arterial disease status post amputation, postop day 1 #Severe peripheral arterial disease #Hypertension #Chronic alcoholism #Chronic hyponatremia #Cellulitis of left foot toes ? Patient recently discharged from hospital after peripheral angioplasty advised to follow-up with podiatry as an outpatient as per orthopedic recommendations. He was given oral antibiotics at discharge but she never filled. He presented back with cellulitis and dry gangrene. See hospital discharge summary from 01/23 for further details on previous hospital stay. ? Orthopedics saw patient in consultation. Continue IV Zosyn. Repeat blood cultures. ? MRI complete. Please see results in chart. -Had toe amputation done 01/27/2022. Postop day 1 today. ? Continue aspirin and Plavix. Statin was not started at previous admission. Will prefer to continue aspirin Plavix given recent stenting ? Continue Cardizem 120 daily ? Surgery plans to do dressing change tomorrow. At that point they will assess if patient can be discharged home or not. -She has known history of chronic hyponatremia most likely secondary to alcohol use versus SIADH. 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 I will start on salt tablet 1 g daily. ? CIWA protocol ? Continue Protonix -Cardiac diet -SCDs Attestations Medical Necessity Statement*: Requires inpatient hospitalization for postop management of dry gangrene. Patient had significant bleeding postprocedure. Dressing change to be done tomorrow. Coding Level of Care Code Acute [employer] for [facility] Fwd Diagnoses Cellulitis L03.90 Gangrene due to arterial insufficiency I77.1; I96 Chronic hyponatremia E87.1 Chronic alcoholism F10.20 HTN (hypertension) I10 PAC (premature atrial contraction) I49.1 Severe peripheral arterial disease I73.9
[2022-01-28] MEDS: folic acid 1 mg Tablet PO (09:30)
[2022-01-28] MEDS: aspirin 81 mg EC Tablet PO (09:30)
[2022-01-28] MEDS: ferrous gluconate 324 mg Tablet PO ×2 (09:30→17:24)
[2022-01-28] MEDS: dilTIAZem ER (24HR) 120 mg Capsule PO (09:30)
[2022-01-28] MEDS: thiamine 100 mg Tablet PO (09:30)
[2022-01-28] MEDS: docusate sodium 100 mg Capsule PO ×2 (09:30→17:24)
[2022-01-28] MEDS: pantoprazole DR 40 mg Tablet PO (09:31)
[2022-01-28] MEDS: multivitamin therapeutic Tablet 1 TAB PO (09:31)
[2022-01-28] MEDS: clopidogrel 75 mg Tablet PO (09:31)
--- NOTE | 2022-01-28 10:10 | PC.OT ---
OT EVALUATION ORDERS RECEIVED. OT SCREEN COMPLETED; NO FURTHER SKILLED OT SERVICES REQUIRED
[2022-01-28 11:07] VITALS: BP 122/70; PULSE 84; RESP 18; TEMP 36.6; O2SAT 97
--- NOTE | 2022-01-28 11:15 | PC.SOCIAL ---
IMM update IMM updated with patient. Patient verbalized understanding. Copy of page 2 provided. Chart updated with Initial,dated and timed.
[2022-01-28 15:45] VITALS: BP 135/62; PULSE 81; RESP 18; TEMP 36.6; O2SAT 95
[2022-01-28 20:34] VITALS: BP 118/75; PULSE 89; RESP 17; O2SAT 97
[2022-01-29 00:11] VITALS: BP 115/63; PULSE 86; TEMP 36.8; O2SAT 95
[2022-01-29 04:06] VITALS: BP 125/69; PULSE 60; RESP 14; TEMP 36.8; O2SAT 95
[2022-01-29 05:58] LABS: Basophils # 0.1 10^3/uL (0.0-0.1); Eosinophils # 0.3 10^3/uL (0.0-0.8); Eosinophils % 2.6 %; Hematocrit 35.4 % (42.0-52.0); Hemoglobin 11.9 g/dL (11.7-16.6); Lymphocytes # 1.7 10^3/uL (0.8-4.8); Lymphocytes % 14.5 %; Mean Corpuscular HGB Conc 33.6 g/dL (30.0-36.0); Mean Corpuscular Hemoglobin 35.6 pg (28.0-34.0); Monocytes # 1.1 10^3/uL (0.2-0.9); Monocytes % 9.3 %; Neutrophils # 8.27 10^3/uL (1.8-7.7); Neutrophils % 71.6 %; Nucleated Red Blood Cells % 0 %; Platelet Count 374 10^3/cmm (130-400); Red Blood Count 3.34 10^6/uL (4.1-5.3); Red Cell Distribution Width 12.8 % (12.1-15.1); White Blood Count 11.5 10^3/uL (4.0-10.0)
[2022-01-29 06:00] VITALS: PULSE 89
[2022-01-29 06:22] LABS: Anion Gap 12.9 (5-19); Blood Urea Nitrogen 7 mg/dL (8-23); Calcium 7.9 mg/dL (8.5-10.5); Carbon Dioxide 19 mmol/L (22-29); Chloride 103 mmol/L (98-107); Creatinine Clr Calc Pharmacy 78.7417; Glucose 86 mg/dL (65-115); Magnesium 1.3 mg/dL (1.7-2.3); Osmolality Calculated 269 mOsm/kg (285-295); Potassium 3.9 mmol/L (3.5-5.1); Sodium 131 mmol/L (136-145)
[2022-01-29] MEDS: piperacillin-tazobactam 3.375 GM in sodium chloride 0.9% (plus) 50 ML IV ×3 (06:26→22:13)
[2022-01-29 06:47] LABS: Glucose Point of Care 86 mg/dL (70-110)
--- NOTE | 2022-01-29 07:23 | P.PN_ITS ---
Subjective Subjective: Patient seen and examined this morning. No issues overnight. Patient overall doing well. Dressing on and in place with some dried saturation. This was subsequently taken down incision inspected. No evidence of abscess or accumulation of purulent drainage. Normal postoperative dried bloody discharge noted. Dressing reapplied. At this point stable from orthopedic standpoint no further surgical intervention at this time. Would recommend follow-up in my office in 10 to 14 days. Patient understands and agrees with current plan. All questions answered. Vitals/I&O/Wt Last Vital Signs Temp 98.3 F 01/29/22 04:06 Pulse 89 01/29/22 06:00 Resp 14 01/29/22 04:06 BP 125/69 01/29/22 04:06 Pulse Ox 95 01/29/22 04:06 O2 Del Method 01/29/22 04:06 01/28/22 01/29/22 01/29/22 22:59 06:59 14:59 Intake Total 290 / 940 50 / 990 Output Total 750 / 750 Balance 290 / 940 -700 / 240 Weight last 48 hrs Weight 171 lb 15.369 oz Weight 176 lb Physical Exam Narrative: Examination of the left lower extremity dressing mild dried blood saturation was noted this was subsequently taken down incision inspected. Sutures intact incision approximated well. Normal postoperative dried blood around the incision. No palpable fluctuance or purulent drainage. Patient is able to wiggle toes. Still has some slight sluggish cap refill today less than 3-second on the third and fourth toe rest of toes less than 2 seconds brisk capillary refill. Data : 01/29/22 05:42 01/29/22 05:42 A&P Assessment and plan (1) Amputated toe of left foot: Status: Acute (2) Cellulitis: Status: Acute (3) Gangrene due to arterial insufficiency: Status: Acute Plan - May resume regular diet -Antibiotics per primary team -Nonweightbearing left lower extremity -Please place patient's left lower extremity while in dressing into a cam boot for protection while mobilizing. -Pain control -Follow-up in the orthopedic office in [address] Brunner -Patient stable for discharge from orthopedic standpoint. At this point orthopedic surgery team will follow patient peripherally. Feel free to let me know if there is any questions pertaining to patient's care or postoperative course. Dressings changed today and incision stable. Once again we did reiterate with patient given his poor peripheral vascular disease and calcifications noted on his foot that there is an increased risk for reoperation given to wound dehiscence infection or further ischemia to the foot. He understands what this point and is appreciative of the measures to maintain as much limb as possible. We will follow-up with him closely 10 to 14 days in the outpatient setting. He may leave the dressing on and in place until follow-up unless it becomes saturated. He understands and agrees with current plan. All questions answered. Attestations Medical Necessity Statement*: Patient admitted for dry gangrene with cellulitis of the left foot second toe. Requiring utilization surgical amputation of left second toe. 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
[2022-01-29] MEDS: dilTIAZem ER (24HR) 120 mg Capsule PO (08:39)
[2022-01-29] MEDS: ferrous gluconate 324 mg Tablet PO ×2 (08:39→17:16)
[2022-01-29] MEDS: aspirin 81 mg EC Tablet PO (08:39)
[2022-01-29] MEDS: thiamine 100 mg Tablet PO (08:39)
[2022-01-29] MEDS: docusate sodium 100 mg Capsule PO ×2 (08:39→17:16)
[2022-01-29] MEDS: multivitamin therapeutic Tablet 1 TAB PO (08:39)
[2022-01-29] MEDS: clopidogrel 75 mg Tablet PO (08:39)
[2022-01-29] MEDS: pantoprazole DR 40 mg Tablet PO (08:39)
[2022-01-29] MEDS: sodium chloride 1 gm Tablet PO (08:39)
[2022-01-29] MEDS: folic acid 1 mg Tablet PO (08:39)
[2022-01-29] MEDS: magnesium sulfate premix 4 GM/100 ML PREMIX IV (10:29)
--- NOTE | 2022-01-29 13:22 | PM.MISC ---
Miscellaneous Note Purpose of Documentation: Update Note: Got called by RN. Pt unable to completely weight bear on foot after working with PT. He lives alone and does not feel safe going home with his current condition. We will be keeping him in hospital today for PT. Plan for DC in AM pending clinical course. Discharge cancelled today. See DC summary from today for todays examination.
[2022-01-29 20:00] VITALS: BP 131/73; PULSE 86; RESP 20; TEMP 36.6; O2SAT 96
[2022-01-29 22:00] VITALS: PULSE 90
[2022-01-30] VITALS: BP 150/66; PULSE 90; RESP 18; TEMP 37.2; O2SAT 92
[2022-01-30 04:00] VITALS: BP 125/67; PULSE 90; RESP 20; TEMP 36.7; O2SAT 92
[2022-01-30 06:00] VITALS: PULSE 88
[2022-01-30] MEDS: piperacillin-tazobactam 3.375 GM in sodium chloride 0.9% (plus) 50 ML IV (06:24)
[2022-01-30 07:53] VITALS: BP 119/76; PULSE 97; RESP 16; TEMP 36.5; O2SAT 93
--- NOTE | 2022-01-30 08:01 | P.DS_ITS ---
Discharge Providers Date of Admission: 01/25/22 15:46 Date of Discharge: January 29, 2022 Attending Provider at Admission: Alexander Patton MD Attending Provider at Discharge: Gena Esposito MD Primary Care Provider: Sachin Gallagher DO Diagnoses at Discharge Discharge Diagnosis (1) Amputated toe of left foot: Status: Acute (2) Cellulitis: Status: Acute (3) Gangrene due to arterial insufficiency: Status: Acute Reason for Visit Reason for Visit: footpain, swelling Brief History: Reginald Pelaez is a 81 year old male with history of hypertension, chronic alcoholism, claudication from severe peripheral artery disease presented to the ER today because of discoloration of second toe on the left foot.? Patient was recently in the hospital and discharged on 01/23.? During that hospitalization he underwent peripheral angiogram and stent placement along with balloon angioplasty of left common iliac and ostial SFA stenosis.? He was discharged on oral Augmentin and Levaquin and advised to follow-up with podiatry as an outpatient as per recommendations from orthopedics for possible amputation.? Patient never filled up his antibiotics. Presented back to the ER today because of surrounding skin becoming more red in color along with some pain.? Denies of having any fever, discharge or any further autoamputation.? On his previous admission his blood cultures were negative. Hospital Course Hospital Course Patient was admitted because of discoloration on second toe of left foot. He was recently discharged 2 days prior to admission. He was given outpatient follow-up with orthopedics for possible amputation and outpatient antibiotics which she never filled. He was readmitted and orthopedic surgery was consulted. Patient was taken for toe amputation to the OR on 01/27/2022. He is on aspirin and Plavix. Postop he had bleeding from the wound. He also worked with physical therapy. Dressing change was done postop day 2. Patient feels better today. He will be sent home in stable condition. I will continue antibiotics for 7 more days with Augmentin and Levaquin. During his hospital stay he has been on IV antibiotics and has been treated with Zosyn. Patient also found to be chronically hyponatremic. Most likely secondary to SIADH. He has been started on salt tablet 1 g daily. Sodium has improved. He chronically runs between 126-130 range. Patient was also kept on CIWA protocol during hospital stay but did not have any signs of withdrawal and did not require any Ativan. She will be sent home today to follow-up with his primary care doctor and to follow-up with orthopedic surgery in 10 days in their office. Home health has been set up for dressing changes. I have also started patient on thiamine and folic acid and magnesium. He is to repeat his CBC and BMP in 1 week and follow- up with his PCP. Physical Exam Narrative: General: No acute distress, AO x3, pleasant, hard of hearing Chest: Clear to auscultation bilaterally no wheezes or rhonchi CVS: S1-S2 irregularly irregular, no murmurs, no tachycardia, Abdomen: Soft, nontender, no organomegaly, bowel sounds present, morbidly obese Neuro: No focal deficits Extremity: Patient able to wiggle his toes and plantarflex and dorsiflex ankle.? Seen by orthopedic surgery this morning. I did not examine wound as it was examined by orthopedic surgeon. No evidence of hematoma. Discharge Data Studies Completed and Pending Completed Studies During Hospitalization Category Date Time Status XR foot LT 2V [id number] Stat Exams 01/25/22 13:36 Completed MR foot LT wo/w con [id number] Urgent MRI 01/26/22 10:00 Completed Pending at discharge Category Date Time Status Blood Culture Stat Lab 01/25/22 15:42 Results Pathology: Surgical [PTH] Routine Pth 01/27/22 12:45 Received Radiology Impressions Foot X-Ray 01/25/22 13:36 IMPRESSION: 1. Absence of soft tissues of the distal second toe. There is also absence of the distal portion of the distal phalanx of the second toe. There is gas in the soft tissues about the middle phalanx of the second toe and probable early cortical bone destruction. Findings are suspicious for osteomyelitis. 2. Healing fractures of the distal third and fourth metatarsals without signific ant displacement. Foot MRI 01/26/22 10:00 IMPRESSION: 1. 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 2. Soft tissue gas with artifact and chronic appearing erosive changes with enhancement involving the 2nd mid phalanx. Associated enhancement with relative preservation of the Fatty bone marrow T1 signal. Enhancement may be reactive but early osteomyelitis difficult to exclude. 3. T1 bone marrow signal appears preserved in the 2nd proximal phalanx without evidence of osteomyelitis in this area. 4. Diffuse soft tissue edema involving the 2nd phalangeal soft tissues. 5. No evidence of drainable abscess or fluid collection. 6. Healing fractures of the base of the 2nd and 3rd metatarsals. Healing fractures involving the 3rd and 4th metatarsal necks. Laboratory Results WBC 11.5 10^3/uL (4.0-10.0) H 01/29/22 05:42 RBC 3.34 10^6/uL (4.1-5.3) L 01/29/22 05:42 Hgb 11.9 g/dL (11.7-16.6) 01/29/22 05:42 Hct 35.4 % (42.0-52.0) L 01/29/22 05:42 MCV 106.0 fl (80-94) H 01/29/22 05:42 MCH 35.6 pg (28.0-34.0) H 01/29/22 05:42 MCHC 33.6 g/dL (30.0-36.0) 01/29/22 05:42 RDW 12.8 % (12.1-15.1) 01/29/22 05:42 Plt Count 374 10^3/cmm (130-400) 01/29/22 05:42 MPV 9.0 fL (7.4-10.4) 01/29/22 05:42 Neut % (Auto) 71.6 % 01/29/22 05:42 Lymph % (Auto) 14.5 % 01/29/22 05:42 [place] % (Auto) 9.3 % 01/29/22 05:42 Eos % (Auto) 2.6 % 01/29/22 05:42 Baso % (Auto) 1.0 % 01/29/22 05:42 Neut # (Auto) 8.27 10^3/uL (1.8-7.7) H 01/29/22 05:42 Lymph # (Auto) 1.7 10^3/uL (0.8-4.8) 01/29/22 05:42 [place] # (Auto) 1.1 10^3/uL (0.2-0.9) H 01/29/22 05:42 Eos # (Auto) 0.3 10^3/uL (0.0-0.8) 01/29/22 05:42 Baso # (Auto) 0.1 10^3/uL (0.0-0.1) 01/29/22 05:42 Nucleated RBC % (auto) 0 % 01/29/22 05:42 Nucleated RBCs # 0.0 /100WBC 01/29/22 05:42 Sodium 131 mmol/L (136-145) L 01/29/22 05:42 Potassium 3.9 mmol/L (3.5-5.1) 01/29/22 05:42 Chloride 103 mmol/L (98-107) 01/29/22 05:42 Carbon Dioxide 19 mmol/L (22-29) L 01/29/22 05:42 Anion Gap 12.9 (5-19) 01/29/22 05:42 BUN 7 mg/dL (8-23) L 01/29/22 05:42 Creatinine 0.7 mg/dL (0.7-1.2) 01/29/22 05:42 GFR Calculation Not Reportable 01/29/22 05:42 Glucose 86 mg/dL (65-115) 01/29/22 05:42 POC Glucose 86 mg/dL (70-110) 01/29/22 06:37 Calculated Osmolality 269 mOsm/kg (285-295) L 01/29/22 05:42 Calcium 7.9 mg/dL (8.5-10.5) L 01/29/22 05:42 Magnesium 1.3 mg/dL (1.7-2.3) L 01/29/22 05:42 Total Bilirubin 0.7 mg/dL (0.15-1.2) 01/26/22 04:23 AST 27 U/L (0-40) 01/26/22 04:23 ALT 19 U/L (0-41) 01/26/22 04:23 Alkaline Phosphatase 139 U/L (40-130) H 01/26/22 04:23 C-Reactive Protein 29.3 mg/L (0.0-4.9) H 01/25/22 14:00 Total Protein 5.1 g/dL (6.6-8.7) L 01/26/22 04:23 Albumin 2.4 g/dL (3.5-5.2) L 01/26/22 04:23 Globulin 2.7 g/dL (1.3-4.6) 01/26/22 04:23 Procalcitonin 0.15 ng/mL (0-0.5) 01/25/22 14:00 Vitals Last Vital Signs Temp 98.3 F 01/29/22 04:06 Pulse 89 01/29/22 06:00 Resp 14 01/29/22 04:06 BP 125/69 01/29/22 04:06 Pulse Ox 95 01/29/22 04:06 O2 Del Method 01/29/22 04:06 Discharge Plan Discharge Patient Disposition: Home Health Service Condition: Stable Prescriptions: New sodium chloride 1 gram Tablet 1 g PO DAILY 7 Days Qty: 7 0RF folic acid 1 mg Tablet 1 mg PO DAILY 30 Days Qty: 30 0RF Vitamin B-1 (mononitrate) 100 mg Tablet 100 mg PO DAILY 30 Days Qty: 30 0RF magnesium oxide 400 mg magnesium tablet 400 mg PO DAILY 30 Days Qty: 30 0RF Continued multivitamin Tablet 1 tab PO DAILY clopidogrel 75 mg Tablet 75 mg PO DAILY Qty: 30 0RF aspirin 81 mg Tablet,Delayed Release (Dr/Ec) 81 mg PO DAILY Qty: 30 0RF pantoprazole 40 mg Tablet,Delayed Release (Dr/Ec) 40 mg PO DAILY Qty: 14 0RF ferrous gluconate 324 mg (37.5 mg iron) Tablet 324 mg PO BIDWM Qty: 60 0RF diltiazem HCl [Cardizem CD] 120 mg capsule,extended release 24hr 120 mg PO DAILY Qty: 30 0RF levofloxacin 500 mg tablet 500 mg PO Q24H 7 Days Qty: 7 0RF Augmentin 500-125 mg tablet 1 tab PO BID 7 Days Qty: 14 0RF Discharge Orders: Discharge Order (Routine); Ordered 01/29/22 Ordered By: Gena Esposito Other Ambulatory Orders: Basic Metabolic Panel (Routine) Timeframe: 1 Week Facility: [facility] - Location: Lab - Main Lab Ordered By: Gena Esposito Complete Blood Count w/Auto (Routine) Timeframe: 1 Week Location: Determined by Patient Ordered By: Gena Esposito Referrals: Sachin Gallagher DO [Primary Care Provider] - 02/04/22 11:30 am Orion Brunner DO [Physician] - 02/12/22 8:00 am Discharge Diet: Cardiac Discharge Activity: Increase activity as tolerated Patient Instructions: Thiamine (By mouth), Folic Acid (By mouth), Magnesium Oxide (By mouth), Toe Amputation (GEN), Opioid Safety Activity Restrictions/Additional Instructions: Please get your labs rechecked within a week. Please follow with primary care physician within 4 to 7 days of discharge. Please complete your antibiotics. I have given you additionally for 7 days of amoxicillin and levofloxacin. If you experience increased bleeding, increased discharge, worsening swelling, worsening wound please reach out to your surgeon's office or the nearest emergency room. Discharge Attestations Time Spent in Discharge Care*: greater than 30 min Status at Discharge: Cognitive status at discharge: cognitively intact , Behavioral status at discharge: cooperative , Quality Metrics Clinical Quality Measures [ No reported AMI, CVA or VTE this stay] Coding Level of Care Code Acute [facility] note Diagnoses Amputated toe of left foot S98.132A Cellulitis L03.90 Gangrene due to arterial insufficiency I77.1; I96
[2022-01-30] MEDS: sodium chloride 1 gm Tablet PO (08:22)
[2022-01-30] MEDS: docusate sodium 100 mg Capsule PO (08:23)
[2022-01-30] MEDS: multivitamin therapeutic Tablet 1 TAB PO (08:23)
[2022-01-30] MEDS: clopidogrel 75 mg Tablet PO (08:23)
[2022-01-30] MEDS: pantoprazole DR 40 mg Tablet PO (08:23)
[2022-01-30] MEDS: ferrous gluconate 324 mg Tablet PO (08:23)
[2022-01-30] MEDS: folic acid 1 mg Tablet PO (08:23)
[2022-01-30] MEDS: thiamine 100 mg Tablet PO (08:23)
[2022-01-30] MEDS: dilTIAZem ER (24HR) 120 mg Capsule PO (08:23)
[2022-01-30] MEDS: aspirin 81 mg EC Tablet PO (08:23)
--- NOTE | 2022-01-30 09:14 | PC.SOCIAL ---
IMM Updated Updated pt on IMM. No questions voiced. Provided pt a copy. Initialed, dated, & timed copy in chart.
[2022-01-30 11:34] VITALS: BP 116/74; PULSE 89; RESP 16; TEMP 36.6; O2SAT 94
[2022-01-30 13:11] VITALS: BP 116/74; PULSE 89; RESP 16; TEMP 36.6; O2SAT 94
--- NOTE | 2022-01-30 14:16 | PC.NURSE ---
Pt discharged instructions reviewed with patient and friend Prabhu pt verbalizes understanding, reviewed medications and importance of finishing all oral antibiotics. Patient denies further questions at this time.
== END 2022-01-30 14:16 | disposition short-term general hospital (02) | DRG 504 ==
LOC: ER 17:02 → MEDSURG 18:08
PROVIDERS: Student in an Organized Health Care Education/Training Program; Admitting Provider Student in an Organized Health Care Education/Training Program; Emergency Provider Family Medicine; PCP Emergency Medicine Emergency Medical Services; Visit Provider Internal Medicine
PROC: 0Y6S0Z0 Detachment at Left 2nd Toe, Complete, Open Approach (ICD-10-PCS; principal; 2022-01-27 10:40)
DX: M86.172 Other acute osteomyelitis, left ankle and foot (principal); E22.2 Syndrome of inappropriate secretion of antidiuretic hormone; I70.262 Atherosclerosis of native arteries of extremities with gangrene, left leg; L03.032 Cellulitis of left toe; I10 Essential (primary) hypertension; F10.20 Alcohol dependence, uncomplicated; Z95.820 Peripheral vascular angioplasty status with implants and grafts; Z85.828 Personal history of other malignant neoplasm of skin; Z85.21 Personal history of malignant neoplasm of larynx; Z87.891 Personal history of nicotine dependence; S92.532G Displaced fracture of distal phalanx of left lesser toe(s), subsequent encounter for fracture with delayed healing; X58.XXXD Exposure to other specified factors, subsequent encounter; Z79.02 Long term (current) use of antithrombotics/antiplatelets; Z79.82 Long term (current) use of aspirin
CPT/HCPCS: 36415; 36416; 73620; 73720; 80048; 80053; 82962; 83735; 84145; 85025; 86140; 87040; 88305; 88311; 96365; 96372; 97110; 97116; 97161; 97530; 97760; 99285; A9577; J2543; J2704; J2795; J3010; J3370; J3411; J3475; J7050; L4361

== ENCOUNTER → 2022-02-08 14:03 | Outpatient (BNVA) | payer OTHER, SELFPAY | PROVIDERS: PCP Emergency Medicine Emergency Medical Services; Visit Provider Nurse Practitioner Family | DX: I73.9 Peripheral vascular disease, unspecified (principal); I10 Essential (primary) hypertension; Z87.891 Personal history of nicotine dependence | CPT/HCPCS: 99214 ==

== ENCOUNTER → 2022-02-12 08:04 | Outpatient (BNVA) | payer OTHER, SELFPAY | PROVIDERS: PCP Emergency Medicine Emergency Medical Services; Visit Provider Student in an Organized Health Care Education/Training Program | DX: Z89.422 Acquired absence of other left toe(s); I73.9 Peripheral vascular disease, unspecified | CPT/HCPCS: 99024 ==

== ENCOUNTER → 2022-02-15 13:29 | Outpatient (BNVA) | payer OTHER, SELFPAY | PROVIDERS: PCP Emergency Medicine Emergency Medical Services; Visit Provider Nurse Practitioner Family | DX: I73.9 Peripheral vascular disease, unspecified (principal); L97.522 Non-pressure chronic ulcer of other part of left foot with fat layer exposed | CPT/HCPCS: 99213 ==

== ENCOUNTER 2022-02-16 14:19 | Emergency (ER) | payer OTHER, SELFPAY ==
[2022-02-16 14:52] VITALS: BMI 25.1
[2022-02-16 16:04] LABS: Basophils # 0.1 10^3/uL (0.0-0.1); Basophils % 0.7 %; Eosinophils # 0.4 10^3/uL (0.0-0.8); Eosinophils % 3.1 %; Hematocrit 34.3 % (42.0-52.0); Hemoglobin 11.3 g/dL (11.7-16.6); Lymphocytes # 1.7 10^3/uL (0.8-4.8); Lymphocytes % 13.9 %; Mean Corpuscular HGB Conc 32.9 g/dL (30.0-36.0); Mean Corpuscular Hemoglobin 33.9 pg (28.0-34.0); Mean Platelet Volume 8.7 fL (7.4-10.4); Monocytes # 0.9 10^3/uL (0.2-0.9); Monocytes % 6.9 %; Neutrophils # 9.16 10^3/uL (1.8-7.7); Neutrophils % 74.4 %; Nucleated Red Blood Cells % 0 %; Platelet Count 480 10^3/cmm (130-400); Red Blood Count 3.33 10^6/uL (4.1-5.3); Red Cell Distribution Width 12.8 % (12.1-15.1); White Blood Count 12.3 10^3/uL (4.0-10.0)
[2022-02-16 16:27] LABS: Alanine Aminotransferase 22 U/L (0-41); Alkaline Phosphatase 173 U/L (40-130); Anion Gap 12.3 (5-19); Aspartate Amino Transferase 34 U/L (0-40); Blood Urea Nitrogen 8 mg/dL (8-23); Calcium 8.6 mg/dL (8.5-10.5); Carbon Dioxide 25 mmol/L (22-29); Chloride 103 mmol/L (98-107); Globulin 3.4 g/dL (1.3-4.6); Glucose 101 mg/dL (65-115); Osmolality Calculated 280 mOsm/kg (285-295); Potassium 4.3 mmol/L (3.5-5.1); Sodium 136 mmol/L (136-145); Total Bilirubin 0.4 mg/dL (0.15-1.2); Total Protein 6.4 g/dL (6.6-8.7)
[2022-02-16 16:29] LABS: Lactate (Lactic Acid level) 0.7 mmol/L (0.5-2.2)
--- NOTE | 2022-02-16 17:31 | USR_ITS ---
PROCEDURE INFORMATION: Exam: US Duplex Right Lower Extremity Veins, Limited Exam date and time: 02/16/2022 5:37 PM Age: 81 years old Clinical indication: Other: Discoloration; Additional info: Swelling of lower leg-no injury TECHNIQUE: Imaging protocol: Real-time Duplex ultrasound of the Right Lower Extremity with 2-D costello scale, color Doppler flow and spectral waveform analysis with image documentation. Limited exam was focused on the right lower extremity veins. COMPARISON: No relevant prior studies available. FINDINGS: Right deep veins: Unremarkable. The common femoral, femoral, proximal profunda femoral and popliteal veins are patent without thrombus. Normal Doppler waveforms. Normal compressibility and/or augmentation response. Right superficial veins: Unremarkable. Saphenofemoral junction is patent without thrombus. Soft tissues: Subcutaneous edema of the calf. US/[place] [id number] IMPRESSION: No evidence of deep vein thrombosis.
--- NOTE | 2022-02-16 17:36 | W.ED.EXTPRO ---
HPI - Extremity Problem General: Chief complaint: Extremity Problem,Nontraumatic Stated complaint: [facility] Time Seen by Provider: 02/16/22 17:31 History of Present Illness: Patient is a 81-year-old male comes to the ED with right leg swelling. Patient has past medical history of recent amputated toe of left foot, hypertension, chronic alcoholism and severe peripheral arterial disease. Patient's amputation of toe on left foot occurred back on January 27. Says his left leg and foot are healing fine and saw wound care yesterday February 15 to follow-up on left toe amputation wound. 2 days ago he noticed his right lower leg was having some swelling. Denies any injury or trauma to cause right leg swelling. He denies any right leg pain, warmth in leg, chest pain, shortness of breath or any hemoptysis. He is able to weight-bear on right leg with no pain. He is currently on a blood thinner. Associated symptoms: Deny chest pain, fever(s) or rash Review of Systems Const: Denies: fever(s), chills or fatigue Eyes: Denies: change in vision or eye discomfort ENMT: Denies: throat pain, odynophagia, nasal discharge or nasal congestion Card: Denies: chest pain, palpitations, edema, swelling of feet/ankles, dyspnea on exertion or orthopnea Resp: Denies: dyspnea, productive cough or non-productive cough GI: Denies: abdominal pain, nausea, vomiting, diarrhea, constipation or hematochezia : Denies: flank pain, difficulty urinating, dysuria or hematuria Musc: Reports: extremity swelling (Right lower leg); Denies: neck pain or back pain Skin/Breast: Denies: rash or new lesions Neuro: Denies: headache(s), numbness in extremities or weakness in extremities PFS ED PFSH: Medical History Amputated toe of left foot Chronic alcoholism Chronic hyponatremia Claudication Gangrene due to arterial insufficiency Greater trochanteric bursitis History of nonmelanoma skin cancer HTN (hypertension) Hypokalemia 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 Severe peripheral arterial disease Surgical History History of hip surgery Family History Other No pertinent family history Social History Smoking and tobacco status: former smoker (20+ years ago) Alcohol intake: current Alcohol type: beer, wine and hard liquor Lives independently: Yes Household members: none Housing: House History of recent travel: No Physical Exam Const: COMMON NORMALS: no acute distress, patient oriented x3 and alert GENERAL APPEARANCE: cooperative and comfortable HENMT: COMMON NORMALS: normocephalic HEAD & SCALP: normocephalic MOUTH: Normal oral and palatal mucosa present THROAT: posterior oropharynx normal and uvula midline Neck/C-Spine: COMMON NORMALS: supple GENERAL: Yes normal visual inspection Resp: COMMON NORMALS: normal respiratory effort, No retractions, No use of accessory muscles and clear to auscultation bilaterally AUSCULTATION: clear to auscultation bilaterally Cardio: COMMON NORMALS: regular rate, regular rhythm, S1 normal heart sound present, S2 normal heart sound present, No gallops present (Cardio), No clicks present (Cardio) and No murmurs present (Cardio) RATE: regular rate RHYTHM: regular rhythm HEART SOUNDS: S1 normal heart sound present and S2 normal heart sound present PERIPHERAL PULSES: popliteal pulses present positive bilateral 1+ GI: COMMON NORMALS: Normal to inspection, nondistended, normoactive bowel sounds present, Soft to palpation, non-tender and no masses PALPATION: Yes Soft to palpation : COMMON NORMALS: Yes no CVA tenderness BLADDER/KIDNEY EXAM: Yes no CVA tenderness Back/Pelvis: COMMON NORMALS: no CVA tenderness Extremity: GENERAL: Yes edema (2 plus pitting edema in right lower extremity.) Neuro: COMMON NORMALS: patient oriented x3 SENSORIUM/ORIENTATION: Yes alert GAIT: Yes Normal gait present Skin: GENERAL SKIN EXAM: dry skin MDM - Extremity (Nontraumatic) Medical Decision Making Patient is a 81-year-old male comes to the ED with right leg swelling. Symptoms started approximately 2 days ago and denies any injury or trauma. Denies any chest pain, shortness of breath or warmth to right leg. Vitals are stable. Patient appears nontoxic in no acute distress or pain. Patient has 2+ pitting edema in right lower extremity. 1+ popliteal pulse. No erythema or warmth or findings suggestive of any cellulitis. Ultrasound venous duplex of right lower extremity showed no signs of DVT. Patient was diagnosed with right lower extremity edema and discharged home. He was told to elevate right leg and to wear compression stockings. Follow-up with PCP at his next appointment. Return ED precautions given. Patient understood and agreed with plan. Lab Data I reviewed the patient's lab results. : 02/16/22 15:52 02/16/22 15:52 Radiology Impressions Venous Duplex 02/16/22 17:31 IMPRESSION: No evidence of deep vein thrombosis. Laboratory Results WBC 12.3 10^3/uL (4.0-10.0) H 02/16/22 15:52 RBC 3.33 10^6/uL (4.1-5.3) L 02/16/22 15:52 Hgb 11.3 g/dL (11.7-16.6) L 02/16/22 15:52 Hct 34.3 % (42.0-52.0) L 02/16/22 15:52 MCV 103.0 fl (80-94) H 02/16/22 15:52 MCH 33.9 pg (28.0-34.0) 02/16/22 15:52 MCHC 32.9 g/dL (30.0-36.0) 02/16/22 15:52 RDW 12.8 % (12.1-15.1) 02/16/22 15:52 Plt Count 480 10^3/cmm (130-400) H 02/16/22 15:52 MPV 8.7 fL (7.4-10.4) 02/16/22 15:52 Neut % (Auto) 74.4 % 02/16/22 15:52 Lymph % (Auto) 13.9 % 02/16/22 15:52 [place] % (Auto) 6.9 % 02/16/22 15:52 Eos % (Auto) 3.1 % 02/16/22 15:52 Baso % (Auto) 0.7 % 02/16/22 15:52 Neut # (Auto) 9.16 10^3/uL (1.8-7.7) H 02/16/22 15:52 Lymph # (Auto) 1.7 10^3/uL (0.8-4.8) 02/16/22 15:52 [place] # (Auto) 0.9 10^3/uL (0.2-0.9) 02/16/22 15:52 Eos # (Auto) 0.4 10^3/uL (0.0-0.8) 02/16/22 15:52 Baso # (Auto) 0.1 10^3/uL (0.0-0.1) 02/16/22 15:52 Nucleated RBC % (auto) 0 % 02/16/22 15:52 Nucleated RBCs # 0.0 /100WBC 02/16/22 15:52 Sodium 136 mmol/L (136-145) 02/16/22 15:52 Potassium 4.3 mmol/L (3.5-5.1) 02/16/22 15:52 Chloride 103 mmol/L (98-107) 02/16/22 15:52 Carbon Dioxide 25 mmol/L (22-29) 02/16/22 15:52 Anion Gap 12.3 (5-19) 02/16/22 15:52 BUN 8 mg/dL (8-23) 02/16/22 15:52 Creatinine 0.8 mg/dL (0.7-1.2) 02/16/22 15:52 GFR Calculation Not Reportable 02/16/22 15:52 Glucose 101 mg/dL (65-115) 02/16/22 15:52 Calculated Osmolality 280 mOsm/kg (285-295) L 02/16/22 15:52 Lactate 0.7 mmol/L (0.5-2.2) 02/16/22 15:52 Calcium 8.6 mg/dL (8.5-10.5) 02/16/22 15:52 Total Bilirubin 0.4 mg/dL (0.15-1.2) 02/16/22 15:52 AST 34 U/L (0-40) 02/16/22 15:52 ALT 22 U/L (0-41) 02/16/22 15:52 Alkaline Phosphatase 173 U/L (40-130) H 02/16/22 15:52 Total Protein 6.4 g/dL (6.6-8.7) L 02/16/22 15:52 Albumin 3.0 g/dL (3.5-5.2) L 02/16/22 15:52 Globulin 3.4 g/dL (1.3-4.6) 02/16/22 15:52 Discharge Plan Discharge Patient Disposition: Home Clinical Impression: Edema of right lower leg Condition: Stable Prescriptions: No Action multivitamin Tablet 1 tab PO DAILY clopidogrel 75 mg Tablet 75 mg PO DAILY Qty: 30 0RF aspirin 81 mg Tablet,Delayed Release (Dr/Ec) 81 mg PO DAILY Qty: 30 0RF pantoprazole 40 mg Tablet,Delayed Release (Dr/Ec) 40 mg PO DAILY Qty: 14 0RF ferrous gluconate 324 mg (37.5 mg iron) Tablet 324 mg PO BIDWM Qty: 60 0RF diltiazem HCl [Cardizem CD] 120 mg capsule,extended release 24hr 120 mg PO DAILY Qty: 30 0RF folic acid 1 mg Tablet 1 mg PO DAILY 30 Days Qty: 30 0RF Vitamin B-1 (mononitrate) 100 mg Tablet 100 mg PO DAILY 30 Days Qty: 30 0RF levofloxacin 500 mg tablet 500 mg PO Q24H 7 Days Qty: 7 0RF Augmentin 500-125 mg tablet 1 tab PO BID 7 Days Qty: 14 0RF magnesium oxide 400 mg magnesium tablet 400 mg PO DAILY 30 Days Qty: 30 0RF Discharge Orders: Discharge ED (Routine); Ordered 02/16/22 Ordered By: Ozzie Brunner Referrals: Sachin Gallagher DO [Primary Care Provider] - Discharge Diet: Regular Discharge Activity: Increase activity as tolerated Patient Instructions: Leg Edema (ED) Activity Restrictions/Additional Instructions: Follow-up with medical provider as directed in the next 5 to 7 days for reevaluation. Use compression stocking on right leg to help with edema and elevate it as well. Continue taking all home medications as prescribed. Return to the ER or your medical provider if condition worsens. Please read and understand discharge instructions. Thank you for choosing [facility] for your healthcare needs today. Please realize this is an emergency room and that we are providing you with a medical screening exam and this may not be complete and all inclusive of all the testing and or work up that you may need to determine your ailment or severity of your illness. It is very important that you follow up as instructed or that you return to the Emergency Department should you have concerns or if your condition changes or worsens in any way. Coding Level of Care Code ED Gas Regulator Repairer for Jorge Fwtheresa Exam Comprehensive
== END 2022-02-16 18:31 | disposition home or self-care (01) ==
PROVIDERS: Nurse Practitioner Family; Emergency Provider Physician Assistant; PCP Emergency Medicine Emergency Medical Services
DX: R60.0 Localized edema (principal); Z79.82 Long term (current) use of aspirin; Z79.02 Long term (current) use of antithrombotics/antiplatelets; I10 Essential (primary) hypertension; Z85.21 Personal history of malignant neoplasm of larynx; Z87.891 Personal history of nicotine dependence
CPT/HCPCS: 36415; 80053; 83605; 85025; 93971; 99284

== ENCOUNTER → 2022-02-22 08:23 | Outpatient (BNVA) | payer OTHER, SELFPAY | PROVIDERS: PCP Emergency Medicine Emergency Medical Services; Visit Provider Thoracic Surgery (Cardiothoracic Vascular Surgery) | DX: I73.9 Peripheral vascular disease, unspecified (principal); L97.522 Non-pressure chronic ulcer of other part of left foot with fat layer exposed | CPT/HCPCS: 99213 ==

== ENCOUNTER → 2022-02-26 07:49 | Outpatient (BNVA) | payer OTHER, SELFPAY | PROVIDERS: PCP Emergency Medicine Emergency Medical Services; Visit Provider Student in an Organized Health Care Education/Training Program | DX: X58.XXXA Exposure to other specified factors, initial encounter (principal); S98.132A Complete traumatic amputation of one left lesser toe, initial encounter | CPT/HCPCS: 99024 ==

== ENCOUNTER → 2022-03-01 08:24 | Outpatient (BNVA) | payer OTHER, SELFPAY | PROVIDERS: PCP Emergency Medicine Emergency Medical Services; Visit Provider Thoracic Surgery (Cardiothoracic Vascular Surgery) | DX: I73.9 Peripheral vascular disease, unspecified (principal); L97.522 Non-pressure chronic ulcer of other part of left foot with fat layer exposed | CPT/HCPCS: 11042 ==

== ENCOUNTER → 2022-03-08 09:34 | Outpatient (BNVA) | payer OTHER, SELFPAY | PROVIDERS: PCP Emergency Medicine Emergency Medical Services; Visit Provider Thoracic Surgery (Cardiothoracic Vascular Surgery) | DX: I73.9 Peripheral vascular disease, unspecified (principal); L97.522 Non-pressure chronic ulcer of other part of left foot with fat layer exposed | CPT/HCPCS: 11042 ==

== ENCOUNTER → 2022-03-15 09:36 | Outpatient (BNVA) | payer OTHER, SELFPAY | PROVIDERS: PCP Emergency Medicine Emergency Medical Services; Visit Provider Nurse Practitioner Family | DX: I73.9 Peripheral vascular disease, unspecified (principal); L97.512 Non-pressure chronic ulcer of other part of right foot with fat layer exposed | CPT/HCPCS: 11042 ==

== ENCOUNTER → 2022-03-22 10:16 | Outpatient (BNVA) | payer OTHER, SELFPAY | PROVIDERS: PCP Emergency Medicine Emergency Medical Services; Visit Provider Thoracic Surgery (Cardiothoracic Vascular Surgery) | DX: I73.9 Peripheral vascular disease, unspecified (principal); L97.512 Non-pressure chronic ulcer of other part of right foot with fat layer exposed | CPT/HCPCS: 11043; A6021 ==

== ENCOUNTER → 2022-03-26 07:43 | Outpatient (BNVA) | payer OTHER, SELFPAY | PROVIDERS: PCP Emergency Medicine Emergency Medical Services; Visit Provider Student in an Organized Health Care Education/Training Program | DX: Z98.890 Other specified postprocedural states (principal); Z89.422 Acquired absence of other left toe(s) | CPT/HCPCS: 99024 ==

== ENCOUNTER → 2022-03-29 09:44 | Outpatient (BNVA) | payer OTHER, SELFPAY | PROVIDERS: PCP Emergency Medicine Emergency Medical Services; Visit Provider Thoracic Surgery (Cardiothoracic Vascular Surgery) | DX: I73.9 Peripheral vascular disease, unspecified (principal); L97.522 Non-pressure chronic ulcer of other part of left foot with fat layer exposed | CPT/HCPCS: 11043; A6021 ==

== ENCOUNTER → 2022-03-30 11:53 | Outpatient (BNVA) | payer OTHER, SELFPAY | PROVIDERS: PCP Emergency Medicine Emergency Medical Services; Visit Provider Internal Medicine Cardiovascular Disease | DX: I73.9 Peripheral vascular disease, unspecified (principal); I49.1 Atrial premature depolarization; I10 Essential (primary) hypertension; F10.20 Alcohol dependence, uncomplicated; E87.1 Hypo-osmolality and hyponatremia; Z89.422 Acquired absence of other left toe(s); Z87.891 Personal history of nicotine dependence | CPT/HCPCS: 99213; 99214 ==

== ENCOUNTER → 2022-04-05 10:13 | Outpatient (BNVA) | payer OTHER, SELFPAY | PROVIDERS: PCP Emergency Medicine Emergency Medical Services; Visit Provider Thoracic Surgery (Cardiothoracic Vascular Surgery) | DX: I73.9 Peripheral vascular disease, unspecified (principal); L97.522 Non-pressure chronic ulcer of other part of left foot with fat layer exposed | CPT/HCPCS: 11043; A6021 ==

== ENCOUNTER → 2022-04-12 10:05 | Outpatient (BNVA) | payer OTHER, SELFPAY | PROVIDERS: PCP Emergency Medicine Emergency Medical Services; Visit Provider Thoracic Surgery (Cardiothoracic Vascular Surgery) | DX: I73.9 Peripheral vascular disease, unspecified (principal); L97.522 Non-pressure chronic ulcer of other part of left foot with fat layer exposed | CPT/HCPCS: 97597; A6021 ==

== ENCOUNTER → 2022-04-19 09:05 | Outpatient (BNVA) | payer OTHER, SELFPAY | PROVIDERS: PCP Emergency Medicine Emergency Medical Services; Visit Provider Nurse Practitioner Family | DX: I73.9 Peripheral vascular disease, unspecified (principal); L97.522 Non-pressure chronic ulcer of other part of left foot with fat layer exposed | CPT/HCPCS: 11042; A6021 ==

== ENCOUNTER → 2022-04-26 09:54 | Outpatient (BNVA) | payer OTHER, SELFPAY | PROVIDERS: PCP Emergency Medicine Emergency Medical Services; Visit Provider Nurse Practitioner Family | DX: I70.245 Atherosclerosis of native arteries of left leg with ulceration of other part of foot (principal); L97.512 Non-pressure chronic ulcer of other part of right foot with fat layer exposed | CPT/HCPCS: 11042 ==

== ENCOUNTER → 2022-05-03 09:05 | Outpatient (BNVA) | payer OTHER, SELFPAY | PROVIDERS: PCP Emergency Medicine Emergency Medical Services; Visit Provider Nurse Practitioner Family | DX: I73.9 Peripheral vascular disease, unspecified (principal); L97.522 Non-pressure chronic ulcer of other part of left foot with fat layer exposed | CPT/HCPCS: 15275; A6206; A6250; Q4186 ==

== ENCOUNTER → 2022-05-10 09:23 | Outpatient (BNVA) | payer OTHER, SELFPAY | PROVIDERS: PCP Emergency Medicine Emergency Medical Services; Visit Provider Nurse Practitioner Family | DX: I73.9 Peripheral vascular disease, unspecified (principal); L97.522 Non-pressure chronic ulcer of other part of left foot with fat layer exposed; Z98.890 Other specified postprocedural states; Z89.422 Acquired absence of other left toe(s) | CPT/HCPCS: 15271; 99213; Q4187 ==

== ENCOUNTER → 2022-05-17 09:04 | Outpatient (BNVA) | payer OTHER, SELFPAY | PROVIDERS: PCP Emergency Medicine Emergency Medical Services; Visit Provider Thoracic Surgery (Cardiothoracic Vascular Surgery) | DX: I73.9 Peripheral vascular disease, unspecified (principal); L97.522 Non-pressure chronic ulcer of other part of left foot with fat layer exposed | CPT/HCPCS: 15275; A6206; A6250; Q4187 ==

== ENCOUNTER → 2022-05-25 08:46 | Outpatient (BNVA) | payer OTHER, SELFPAY | PROVIDERS: PCP Emergency Medicine Emergency Medical Services; Visit Provider Thoracic Surgery (Cardiothoracic Vascular Surgery) | DX: I73.9 Peripheral vascular disease, unspecified (principal); L97.522 Non-pressure chronic ulcer of other part of left foot with fat layer exposed | CPT/HCPCS: 15275; A6206; A6250; Q4205 ==

== ENCOUNTER → 2022-06-01 09:51 | Outpatient (BNVA) | payer OTHER, SELFPAY | PROVIDERS: PCP Emergency Medicine Emergency Medical Services; Visit Provider Thoracic Surgery (Cardiothoracic Vascular Surgery) | DX: I73.9 Peripheral vascular disease, unspecified (principal); L97.522 Non-pressure chronic ulcer of other part of left foot with fat layer exposed | CPT/HCPCS: 97597; A6021 ==

== ENCOUNTER 2022-06-06 13:22 | Emergency (ER) | payer OTHER, SELFPAY ==
[2022-06-06 13:24] VITALS: BP 159/72; PULSE 80; RESP 16; TEMP 36.7; O2SAT 95
--- NOTE | 2022-06-06 13:32 | XRR_ITS ---
PROCEDURE INFORMATION: Exam: XR Left Foot Exam date and time: 06/06/2022 1:38 PM Age: 82 years old Clinical indication: Pain; Heel; Left; Prior surgery; Surgery type: 2nd toe; Additional info: Foot pain TECHNIQUE: Imaging protocol: Radiologic exam of the Left foot. Views: 3 or more views. COMPARISON: No relevant prior studies available. FINDINGS: Bones/joints: Three views of the left foot demonstrate amputation of the 2nd digit. There is osteopenia. There is no evidence of bone erosion or periosteal reaction. No acute fractures identified. There is a plantar calcaneal spur. There are marginal osteophytes and joint space narrowing at the 1st MTP joint. Soft tissues: No soft tissue gas. Vasculature: There are atherosclerotic arterial calcifications present. XR/XR foot LT min 3V* [id number] IMPRESSION: 1. Second digit amputation. 2. Plantar calcaneal spur. 3. 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 4. No acute findings
--- NOTE | 2022-06-06 13:42 | W.ED.EXTPRO ---
HPI - Extremity Problem General: Chief complaint: Extremity Problem,Nontraumatic Stated complaint: left ankle pain Time Seen by Provider: 06/06/22 13:32 History of Present Illness: Patient is a 82-year-old male comes to the ED with left foot pain. Patient had amputation of second toe on left foot back on January 27, 2022 and he has had follow-up with wound care and multiple follow-ups with orthopedic doctor as well. He states that his second toe amputation site is healing well and is not having any problems with that. He thinks since he is had his toe amputated he has been walking more on his left heel and that is caused him to have some heel pain that he describes as a sharp type of pain that he rates a 10 out of 10. He has a prescription for some tramadol but says that has not been helping at all and he needs to get into his PCP to discuss pain management. Denies any other injury or trauma to the left foot. Associated symptoms: Deny chest pain, fever(s) or rash Review of Systems Const: Denies: fever(s), chills or fatigue Eyes: Denies: change in vision or eye discomfort ENMT: Denies: throat pain, odynophagia, nasal discharge or nasal congestion Card: Denies: chest pain, palpitations, edema, swelling of feet/ankles, dyspnea on exertion or orthopnea Resp: Denies: dyspnea, productive cough or non-productive cough GI: Denies: abdominal pain, nausea, vomiting, diarrhea, constipation or hematochezia : Denies: flank pain, difficulty urinating, dysuria or hematuria Musc: Reports: extremity pain (Left foot heel pain); Denies: neck pain, back pain or extremity swelling Skin/Breast: Denies: rash or new lesions Neuro: Denies: headache(s), numbness in extremities or weakness in extremities PFS ED PFSH: Medical History Amputated toe of left foot Chronic alcoholism Chronic hyponatremia Claudication Gangrene due to arterial insufficiency Greater trochanteric bursitis History of nonmelanoma skin cancer HTN (hypertension) Hypokalemia 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 Severe peripheral arterial disease Surgical History History of hip surgery Family History Other No pertinent family history Social History Smoking and tobacco status: former smoker (20+ years ago) Alcohol intake: current Alcohol type: beer, wine and hard liquor Lives independently: Yes Household members: none Housing: House History of recent travel: No Physical Exam Const: COMMON NORMALS: patient oriented x3 and alert GENERAL APPEARANCE: cooperative and comfortable HENMT: COMMON NORMALS: normocephalic HEAD & SCALP: normocephalic MOUTH: Normal oral and palatal mucosa present THROAT: posterior oropharynx normal and uvula midline Neck/C-Spine: COMMON NORMALS: supple GENERAL: Yes normal visual inspection Resp: COMMON NORMALS: normal respiratory effort, No retractions, No use of accessory muscles and clear to auscultation bilaterally AUSCULTATION: clear to auscultation bilaterally Cardio: COMMON NORMALS: regular rate, regular rhythm, S1 normal heart sound present, S2 normal heart sound present, No gallops present (Cardio), No clicks present (Cardio), No murmurs present (Cardio) and Peripheral pulses 2+ throughout RATE: regular rate RHYTHM: regular rhythm HEART SOUNDS: S1 normal heart sound present and S2 normal heart sound present PERIPHERAL PULSES: Peripheral pulses 2+ throughout GI: COMMON NORMALS: Normal to inspection, nondistended, normoactive bowel sounds present, Soft to palpation, non-tender and no masses PALPATION: Yes Soft to palpation : COMMON NORMALS: Yes no CVA tenderness BLADDER/KIDNEY EXAM: Yes no CVA tenderness Back/Pelvis: COMMON NORMALS: no CVA tenderness Extremity: NARRATIVE EXTREMITY EXAM: Left foot?no erythema, warmth noted. Mild tenderness to palpation of the heel. Amputated second toe surgical site appears to be healing well. Neuro: COMMON NORMALS: patient oriented x3 SENSORIUM/ORIENTATION: Yes alert GAIT: Yes Normal gait present Skin: GENERAL SKIN EXAM: dry skin Course Vital Signs: Vital signs: Vital Signs Temperature 98.0 F 06/06/22 13:24 Pulse Rate 80 06/06/22 13:24 Respiratory Rate 16 06/06/22 13:24 Blood Pressure 159/72 06/06/22 13:24 Pulse Oximetry 95 06/06/22 13:24 Oxygen Delivery Me thod 06/06/22 13:24 MDM - Extremity (Nontraumatic) Medical Decision Making Patient is a 82-year-old male comes to the ED with left foot pain. Patient had amputation of second toe on left foot back on January 27, 2022 and he has had follow-up with wound care and multiple follow-ups with orthopedic doctor as well. He states that his second toe amputation site is healing well and is not having any problems with that. He thinks since he is had his toe amputated he has been walking more on his left heel and that is caused him to have some heel pain that he describes as a sharp type of pain that he rates a 10 out of 10. Vitals are stable. Left foot exam shows no erythema or warmth noted around amputation site of second toe and it appears to be healing well. He has mild tenderness to palpation of the heel. Rest of exam is benign. X-ray of left foot shows a plantar calcaneal spur which is likely the cause of his pain. I placed an order to case management for patient to be referred to Ortho or podiatry to evaluate heel spur. He was discharged home with a prescription for hydrocodone. Told to follow-up with his PCP as well in the next week for reevaluation. Patient understood and agreed with plan. Lab Data Radiology Impressions Foot X-Ray 06/06/22 13:32 IMPRESSION: 1. Second digit amputation. 2. Plantar calcaneal spur. 3. 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 4. No acute findings Discharge Plan Discharge Patient Disposition: Home Clinical Impression: Bone spur of foot Condition: Stable Prescriptions: No Action furosemide 20 mg tablet 20 mg PO DAILY potassium chloride 10 mEq capsule, extended release 10 meq PO DAILY magnesium oxide 400 mg (241.3 mg magnesium) tablet 400 mg PO DAILY cilostazol 50 mg tablet 50 mg PO BID Qty: 60 6RF hydrocodone-acetaminophen 5-325 mg tablet 1 tab PO Q8H PRN (Reason: pain) 14 Days Qty: 20 0RF pentoxifylline 400 mg tablet extended release 400 mg PO TID 30 Days Qty: 90 4RF Rx Instructions: must administer with a meal/food tramadol 50 mg tablet 50 mg PO BID PRN (Reason: pain) Qty: 14 0RF multivitamin Tablet 1 tab PO DAILY clopidogrel 75 mg Tablet 75 mg PO DAILY Qty: 30 0RF pantoprazole 40 mg Tablet,Delayed Release (Dr/Ec) 40 mg PO DAILY Qty: 14 0RF ferrous gluconate 324 mg (37.5 mg iron) Tablet 324 mg PO BIDWM Qty: 60 0RF diltiazem HCl [Cardizem CD] 120 mg capsule,extended release 24hr 120 mg PO DAILY Qty: 30 0RF levofloxacin 500 mg tablet 500 mg PO Q24H 7 Days Qty: 7 0RF Discharge Orders: Discharge ED (Routine); Ordered 06/06/22 Ordered By: Ozzie Brunner Referrals: Sachin Gallagher, DO [Primary Care Provider] - Discharge Diet: Regular Discharge Activity: Increase activity as tolerated Patient Instructions: Opioid Safety Activity Restrictions/Additional Instructions: Follow-up with medical provider as directed. Take medications as prescribed. Return to the ER or your medical provider if condition worsens. Please read and understand discharge instructions. Thank you for choosing [facility] for your healthcare needs today. Please realize this is an emergency room and that we are providing you with a medical screening exam and this may not be complete and all inclusive of all the testing and or work up that you may need to determine your ailment or severity of your illness. It is very important that you follow up as instructed or that you return to the Emergency Department should you have concerns or if your condition changes or worsens in any way. Coding Level of Care Code ED Title One Reading Teacher for Jorge Betancourt Exam Comprehensive
== END 2022-06-06 15:10 | disposition home or self-care (01) ==
PROVIDERS: Emergency Provider Physician Assistant; PCP Emergency Medicine Emergency Medical Services
DX: M77.32 Calcaneal spur, left foot (principal); Z79.02 Long term (current) use of antithrombotics/antiplatelets; Z87.891 Personal history of nicotine dependence; I10 Essential (primary) hypertension; Z85.810 Personal history of malignant neoplasm of tongue
CPT/HCPCS: 73630; 99283

== ENCOUNTER → 2022-06-07 09:15 | Outpatient (BNVA) | payer OTHER, MEDICARE, SELFPAY | PROVIDERS: PCP Emergency Medicine Emergency Medical Services; Visit Provider Thoracic Surgery (Cardiothoracic Vascular Surgery) | DX: I73.9 Peripheral vascular disease, unspecified (principal); L97.522 Non-pressure chronic ulcer of other part of left foot with fat layer exposed | CPT/HCPCS: 11042; A6021 ==

== ENCOUNTER → 2022-06-10 14:01 | Outpatient (BNVA) | payer OTHER, MEDICARE, SELFPAY | PROVIDERS: PCP Emergency Medicine Emergency Medical Services; Visit Provider Dermatology | DX: D48.9 Neoplasm of uncertain behavior, unspecified (principal) | CPT/HCPCS: 88305 ==

== ENCOUNTER → 2022-06-14 09:30 | Outpatient (BNVA) | payer OTHER, MEDICARE, SELFPAY | PROVIDERS: PCP Emergency Medicine Emergency Medical Services; Visit Provider Thoracic Surgery (Cardiothoracic Vascular Surgery) | DX: I73.9 Peripheral vascular disease, unspecified (principal); L97.522 Non-pressure chronic ulcer of other part of left foot with fat layer exposed | CPT/HCPCS: 97597; A6021 ==

== ENCOUNTER → 2022-06-21 09:12 | Outpatient (BNVA) | payer OTHER, SELFPAY | PROVIDERS: PCP Emergency Medicine Emergency Medical Services; Visit Provider Thoracic Surgery (Cardiothoracic Vascular Surgery) | DX: I73.9 Peripheral vascular disease, unspecified (principal); L97.522 Non-pressure chronic ulcer of other part of left foot with fat layer exposed | CPT/HCPCS: 97597; A6021 ==

== ENCOUNTER → 2022-07-05 09:53 | Outpatient (BNVA) | payer OTHER, SELFPAY | PROVIDERS: PCP Emergency Medicine Emergency Medical Services; Visit Provider Thoracic Surgery (Cardiothoracic Vascular Surgery) | DX: I73.9 Peripheral vascular disease, unspecified (principal); L97.522 Non-pressure chronic ulcer of other part of left foot with fat layer exposed; S98.132A Complete traumatic amputation of one left lesser toe, initial encounter; X58.XXXA Exposure to other specified factors, initial encounter | CPT/HCPCS: 99212; 99213 ==

== ENCOUNTER → 2022-07-21 09:26 | Outpatient (BNVA) | payer OTHER, SELFPAY | PROVIDERS: PCP Emergency Medicine Emergency Medical Services; Visit Provider Anesthesiology Pain Medicine | DX: M51.16 Intervertebral disc disorders with radiculopathy, lumbar region (principal); M79.18 Myalgia, other site | CPT/HCPCS: 20553; 99205 ==

== ENCOUNTER 2022-07-27 07:36 | Emergency (ER) | payer OTHER, SELFPAY ==
--- NOTE | 2022-07-27 07:39 | ED_ITS ---
HPI - General Adult General: Chief complaint: Extremity Problem,Nontraumatic Stated complaint: bilateral leg pain Time Seen by Provider: 07/27/22 07:37 Source: patient Mode of arrival: EMS History of Present Illness: 82-year-old male presents emergency room complaints of bilateral lower extremity pain. Patient has a known history of peripheral artery disease he also has a history of alcoholic peripheral neuropathy. He was recently scheduled for an MRI of his back that he has. This morning to evaluate further he has seen pain clinic in the past, for lumbar back pain. In December 2021 patient had angioplasty of his lower extremity peripheral artery disease he also subsequently went on to have a left second toe amputation. Onset (ago): day(s) (2) Location: left, right and lower extremity Quality: aching Pain Consistency: constant Relieving factors: none Exacerbating factors: none Associated symptoms: Deny chest pain, confusion, cough, diaphoresis, decreased appetite, dyspnea, fevers/chills, headache(s), malaise, nausea, rash, palpitations, seizures, short of breath, syncope, vomiting or weakness Review of Systems Const: Denies: fever(s), chills, fatigue, malaise or diaphoresis ENMT: Denies: throat pain, ear or mastoid pain, nasal discharge or nasal congestion Card: Denies: chest pain, palpitations or syncope Resp: Denies: dyspnea GI: Denies: nausea or vomiting : Denies: flank pain, dysuria, urinary frequency or urinary urgency Skin/Breast: Denies: rash Neuro: Denies: headache(s) or confusion PFS ED PFSH: Medical History Amputated toe of left foot Chronic alcoholism Chronic hyponatremia Claudication Gangrene due to arterial insufficiency Greater trochanteric bursitis History of nonmelanoma skin cancer HTN (hypertension) Hypokalemia 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 Severe peripheral arterial disease Surgical History History of hip surgery Family History Other No pertinent family history Social History Smoking and tobacco status: former smoker (20+ years ago) Alcohol intake: current Alcohol type: beer, wine and hard liquor Lives independently: Yes Household members: none Housing: House Physical Exam Const: GENERAL APPEARANCE: cooperative and comfortable ORIENTATION/CONSCIOUSNESS: Yes awake, Yes oriented to person, Yes oriented to place and Yes oriented to time HENMT: COMMON NORMALS: normocephalic, atraumatic and hearing grossly normal bilaterally HEAD & SCALP: normocephalic and atraumatic Resp: COMMON NORMALS: normal respiratory effort, No retractions, No use of accessory muscles and clear to auscultation bilaterally AUSCULTATION: clear to auscultation bilaterally Cardio: COMMON NORMALS: regular rate, regular rhythm and No murmurs present (Cardio) RATE: regular rate RHYTHM: regular rhythm GI: COMMON NORMALS: Soft to palpation and No hepatosplenomegaly present AUSCULTATION: Yes normoactive bowel sounds PALPATION: Yes Soft to palpation, No Tenderness to palpation present (GI), No Guarding due to palpation present (GI) and Yes No hepatosplenomegaly present Extremity: OTHER: Peripheral pulses at dorsalis pedis and posterior tibialis not palpable. Bilateral of the limbs are cool to the touch. Site of the amputation on the left second toe appears relatively well-healed there is no evidence of skin breakdown ulceration or abscess. Neuro: SENSORIUM/ORIENTATION: Yes oriented to person, Yes oriented to place and Yes oriented to time Skin: COMMON NORMALS: no rashes or lesions noted GENERAL SKIN EXAM: no rashes or lesions noted Course Vital Signs: Vital signs: Vital Signs Temperature 97.5 F L 07/27/22 07:42 Pulse Rate 108 H 07/27/22 08:36 Respiratory Rate 16 07/27/22 07:42 Blood Pressure 133/84 07/27/22 08:36 Pulse Oximetry 90 07/27/22 08:36 Oxygen Delivery Me thod 07/27/22 08:36 MDM - General Adult Medical Decision Making Arterial Doppler shows good blood flow to the legs relative to his known underlying disease. I do not believe this is an ischemic limb event. Appears more it is related to his chronic back pain that Dr. Frsot has been seeing him for. He was given steroid Norflex and morphine for pain he has an MRI scheduled this morning which I think will be more helpful to ultimately leaving his issues than anything we can do in the emergency room we will discharge her from the emergency room and staff will take him directly to outpatient radiology for his MRI that is scheduled. Medical Records I reviewed the patient's medical records. Lab Data I reviewed the patient's lab results. 07/27/22 08:20 07/27/22 08:20 Laboratory Results WBC 12.6 10^3/uL (4.0-10.0) H 07/27/22 08:20 RBC 4.47 10^6/uL (4.1-5.3) 07/27/22 08:20 Hgb 14.5 g/dL (11.7-16.6) 07/27/22 08:20 Hct 42.8 % (42.0-52.0) 07/27/22 08:20 MCV 95.7 fl (80-94) H 07/27/22 08:20 MCH 32.4 pg (28.0-34.0) 07/27/22 08:20 MCHC 33.9 g/dL (30.0-36.0) 07/27/22 08:20 RDW 14.5 % (12.1-15.1) 07/27/22 08:20 Plt Count 424 10^3/cmm (130-400) H 07/27/22 08:20 MPV 9.8 fL (7.4-10.4) 07/27/22 08:20 Neut % (Auto) 77.5 % 07/27/22 08:20 Lymph % (Auto) 12.7 % 07/27/22 08:20 [place] % (Auto) 7.5 % 07/27/22 08:20 Eos % (Auto) 1.2 % 07/27/22 08:20 Baso % (Auto) 0.2 % 07/27/22 08:20 Neut # (Auto) 9.75 10^3/uL (1.8-7.7) H 07/27/22 08:20 Lymph # (Auto) 1.6 10^3/uL (0.8-4.8) 07/27/22 08:20 [place] # (Auto) 1.0 10^3/uL (0.2-0.9) H 07/27/22 08:20 Eos # (Auto) 0.2 10^3/uL (0.0-0.8) 07/27/22 08:20 Baso # (Auto) 0.0 10^3/uL (0.0-0.1) 07/27/22 08:20 Nucleated RBC % (auto) 0.2 % 07/27/22 08:20 Nucleated RBCs # 0.0 /100WBC 07/27/22 08:20 Sodium 133 mmol/L (136-145) L 07/27/22 08:20 Potassium 4.2 mmol/L (3.5-5.1) 07/27/22 08:20 Chloride 99 mmol/L (98-107) 07/27/22 08:20 Carbon Dioxide 21 mmol/L (22-29) L 07/27/22 08:20 Anion Gap 17.2 (5-19) 07/27/22 08:20 BUN 15 mg/dL (8-23) 07/27/22 08:20 Creatinine 0.8 mg/dL (0.7-1.2) 07/27/22 08:20 GFR Calculation Not Reportable 07/27/22 08:20 Glucose 103 mg/dL (65-115) 07/27/22 08:20 Calculated Osmolality 277 mOsm/kg (285-295) L 07/27/22 08:20 Calcium 9.2 mg/dL (8.5-10.5) 07/27/22 08:20 Creatine Kinase 60 U/L (39-308) 07/27/22 08:20 Discharge Plan Discharge Patient Disposition: Home Clinical Impression: Lumbar disc disease with radiculopathy Condition: Stable Prescriptions: No Action furosemide 20 mg tablet 20 mg PO DAILY potassium chloride 10 mEq capsule, extended release 10 meq PO DAILY magnesium oxide 400 mg (241.3 mg magnesium) tablet 400 mg PO DAILY cilostazol 50 mg tablet 50 mg PO BID Qty: 60 6RF hydrocodone-acetaminophen 5-325 mg tablet 1 tab PO Q8H PRN (Reason: pain) 14 Days Qty: 20 0RF imiquimod 5 % cream in packet 1 applic topical QDAY Qty: 24 1RF Rx Instructions: apply to affected area daily tuesday-tuesday (weekends off)for 6 weeks. methylprednisolone acetate [Depo-Medrol] 80 mg/mL suspension 80 mg intra-articular ONCE Qty: 1 0RF triamcinolone acetonide [Kenalog] 40 mg/mL suspension 40 mg IM ONCE Qty: 1 0RF methylprednisolone acetate [Depo-Medrol] 40 mg/mL suspension 40 mg intra-articular ONCE Qty: 1 0RF bupivacaine (PF) 0.25 % (2.5 mg/mL) solution 1 ml intra-articular ONCE Qty: 1 0RF tramadol 50 mg tablet 50 mg PO BID PRN (Reason: pain) Qty: 45 0RF pentoxifylline 400 mg tablet extended release 400 mg PO TID 30 Days Qty: 90 4RF Rx Instructions: must administer with a meal/food tramadol 50 mg tablet 50 mg PO BID PRN (Reason: pain) Qty: 14 0RF multivitamin Tablet 1 tab PO DAILY clopidogrel 75 mg Tablet 75 mg PO DAILY Qty: 30 0RF pantoprazole 40 mg Tablet,Delayed Release (Dr/Ec) 40 mg PO DAILY Qty: 14 0RF ferrous gluconate 324 mg (37.5 mg iron) Tablet 324 mg PO BIDWM Qty: 60 0RF diltiazem HCl [Cardizem CD] 120 mg capsule,extended release 24hr 120 mg PO DAILY Qty: 30 0RF levofloxacin 500 mg tablet 500 mg PO Q24H 7 Days Qty: 7 0RF Discharge Orders: Discharge ED (Routine); Ordered 07/27/22 Ordered By: Clemente Inman Referrals: Sachin Gallagher DO [Primary Care Provider] - Patient Instructions: Opioid Safety, Pain Management Activity Restrictions/Additional Instructions: You were seen today for lower extremity pain. Blood flow to your legs is adequate as shown by the ultrasound that was done during your visit. Suspect that the discomfort in your legs is due to your low back issue. Recommend you follow-up with Dr. Frost as previously planned. After discharge from the emergency room or staff will take you directly to outpatient radiology for your scheduled MRI of your back. Coding Level of Care Code ED Quantitative Consultant for Jorge Betancourt
[2022-07-27 07:42] VITALS: BP 134/85; PULSE 87; RESP 16; TEMP 36.4; O2SAT 95
--- NOTE | 2022-07-27 07:47 | USCV_ITS ---
Reginald Pelaez Age: 82 Gender: M : 1940 Exam Date: 07/27/2022 08:22 Ordering Phys: Clemente Inman DO Technologist: Ryan Biswas [place] [facility] [place]: DECREASE PULSE Risk Factors: Previous Vascular Surgery: RIGHT LEFT BP: 135.0 / BP: 135.0/ 0 0 Waveform Velocity (cm/s) Velocity (cm/s) Waveform Triphasic 127.9 Iliac Prox 112.5 Triphasic Triphasic 131.2 Iliac Mid 121.3 Triphasic Triphasic 132.3 Iliac Distal 124.6 Triphasic Triphasic 71.7 [employer] 124.6 Triphasic Biphasic 94.8 SFA Prox 61.7 Biphasic Biphasic 80.5 SFA Mid 87.1 Biphasic Biphasic SFA Dist Biphasic 80.5 72.8 Biphasic 50.5 POP 55.9 Biphasic Triphasic 57.5 PIERCER 55.2 Biphasic Triphasic 87.8 DPA 43.5 Biphasic 1.1 JAMES 1.1 FINDINGS Resting JAMES of 1.1 bilaterally Near normal Doppler waveforms bilaterally Mild to moderate diffuse dense plaques in the iliac and femoral arteries, bilaterally. CONCLUSIONS 1. Normal resting ABIs bilaterally suggesting no significant arterial obstruction. 2. Mild to moderate diffuse dense plaques in the iliac and femoral arteries bilaterally Dr Antonio Apodaca MD [facility] (Electronically Signed) Final Date: 28 July 2022 06:41 S
[2022-07-27 08:36] VITALS: BP 133/84; PULSE 108; O2SAT 90
[2022-07-27 08:36] LABS: Basophils % 0.2 %; Eosinophils # 0.2 10^3/uL (0.0-0.8); Eosinophils % 1.2 %; Hematocrit 42.8 % (42.0-52.0); Hemoglobin 14.5 g/dL (11.7-16.6); Lymphocytes # 1.6 10^3/uL (0.8-4.8); Lymphocytes % 12.7 %; Mean Corpuscular HGB Conc 33.9 g/dL (30.0-36.0); Mean Corpuscular Hemoglobin 32.4 pg (28.0-34.0); Mean Corpuscular Volume 95.7 fl (80-94); Mean Platelet Volume 9.8 fL (7.4-10.4); Monocytes % 7.5 %; Neutrophils # 9.75 10^3/uL (1.8-7.7); Neutrophils % 77.5 %; Nucleated Red Blood Cells % 0.2 %; Platelet Count 424 10^3/cmm (130-400); Red Blood Count 4.47 10^6/uL (4.1-5.3); Red Cell Distribution Width 14.5 % (12.1-15.1); White Blood Count 12.6 10^3/uL (4.0-10.0)
[2022-07-27 08:48] LABS: Anion Gap 17.2 (5-19); Blood Urea Nitrogen 15 mg/dL (8-23); Calcium 9.2 mg/dL (8.5-10.5); Carbon Dioxide 21 mmol/L (22-29); Chloride 99 mmol/L (98-107); Creatine Phosphokinase 60 U/L (39-308); Creatinine Clr Calc Pharmacy 76.3171; Glucose 103 mg/dL (65-115); Osmolality Calculated 277 mOsm/kg (285-295); Potassium 4.2 mmol/L (3.5-5.1); Sodium 133 mmol/L (136-145)
[2022-07-27] MEDS: morphine 4 mg/mL SDV 1 mL IVP (09:00)
[2022-07-27] MEDS: orphenadrine 30 mg/mL Inj 2 mL 60 MG IVP (09:00)
--- NOTE | 2022-07-27 09:17 | MR_ITS ---
WS: [id number] MRI LUMBAR SPINE NONCONTRAST TECHNIQUE: Sagittal T1, T2 and STIR imaging. Axial T1 and T2 imaging. CLINICAL INFORMATION: M54.9 - Dorsalgia, unspecified COMPARISON: None. FINDINGS: Some images limited due to patient motion. Mild lumbar curve. Acute appearing compression fractures involving the L1, L3, and L4 vertebral wyatt s. Mild retropulsion of the posterior superior endplate L3. Biconcave compression at L1 with diffuse edema and fluid filled fracture cleft. Edema extends to the LEFT greater than RIGHT pedicles. No significant retropulsion. Small amount of edema in the disc spac e. Loss of approximately 20% vertebral body height. Acute compression fracture L3 superior endplate with loss of approximately 30-40% vertebral body heig ht. Diffuse edema. Mild retropulsion posterior superior endplate results in severe central canal sten osis at the L2-L3 level in combination with disc bulging and moderate facet arthropathy with ligament um flavum flavum hypertrophy. Acute compression fracture inferior endplate L4 with edema. Loss of approximately 20% vertebral body height. No retropulsion. L1-L2: Mild disc bulging with moderate central canal stenosis. Moderate facet arthropathy ligamentum flavum hypertrophy. Small LEFT foraminal protrusion with mild LEFT foraminal narrowing. L2-L3: Severe central canal stenosis due to disc bulging in combination with facet arthropathy ligame ntum flavum hypertrophy. Slight retropulsion posterior L3 contributes to stenosis. Mild to moderate b ilateral foraminal narrowing. L3-L4: Mild annular bulging with moderate central canal stenosis. Moderate facet arthropathy ligament um flavum hypertrophy. Moderate RIGHT and mild LEFT foraminal narrowing. Moderate facet arthropathy. L4-L5: Mild annular bulging in combination with facet arthropathy ligamentum flavum hypertrophy resul ts in severe central canal stenosis. Impingement on traversing L5 nerve roots bilaterally. Moderate R IGHT and mild LEFT foraminal narrowing. L5-S1: No significant disc bulging. Spinal canal and foramen are patent. Mild facet arthropathy. Visualized pelvic bony structures: Normal. Paravertebral soft tissues: Normal. Chronic segmentation anomaly T11-T12. Tortuous slightly ectatic abdominal aorta measuring 2.5 x 2.7 c m in maximum dimension. Bilateral renal cortical atrophy. MR/MR lumbar spine wo con* [id number] IMPRESSION: 1. Acute compression fractures with diffuse edema involving the L1, L3 and L4 vertebral bodies described above. Fluid-filled flexure cleft at L1. 2. Slight retropulsion L3 posterior superior cortex. This somewhat contributes to chronic appearing central canal stenosis at L2-L3 3. Severe central canal stenosis L2-L3 and L4-L5 mainly due to disc bulging wi th facet arthropathy ligamentum flavum hypertrophy. 4. Moderate central canal stenosis L1-L2 and L3-L4. 5. Multilevel foraminal narrowing described above. 6. Moderate facet arthropathy worse at L3-L4 L4-L5.
[2022-07-27 09:40] VITALS: BP 112/76; PULSE 96; RESP 12; O2SAT 96
== END 2022-07-27 09:41 | disposition home or self-care (01) ==
PROVIDERS: Emergency Provider Family Medicine; PCP Emergency Medicine Emergency Medical Services
DX: M51.16 Intervertebral disc disorders with radiculopathy, lumbar region (principal); Z79.02 Long term (current) use of antithrombotics/antiplatelets; Z87.891 Personal history of nicotine dependence; I10 Essential (primary) hypertension; Z85.21 Personal history of malignant neoplasm of larynx
CPT/HCPCS: 72148; 80048; 82550; 85025; 93925; 96374; 96375; 99285; J2270; J2360; J2930

== ENCOUNTER → 2022-07-29 13:06 | Outpatient (BNVA) | payer OTHER, MEDICARE, MEDICAID, SELFPAY | PROVIDERS: PCP Emergency Medicine Emergency Medical Services; Visit Provider Orthopaedic Surgery | DX: M48.061 Spinal stenosis, lumbar region without neurogenic claudication (principal); M48.56XA Collapsed vertebra, not elsewhere classified, lumbar region, initial encounter for fracture; M51.16 Intervertebral disc disorders with radiculopathy, lumbar region | CPT/HCPCS: 72100; 99204 ==

== ENCOUNTER 2022-08-03 09:09 | Inpatient (IN) | payer OTHER, SELFPAY ==
[2022-08-03 09:17] VITALS: BP 121/78; PULSE 85; RESP 18; TEMP 36.4; O2SAT 97
--- NOTE | 2022-08-03 09:49 | W.ED.BACK ---
Documented by User: KAE Pearl 08/03/22 16:07 HPI - Back Pain/Injury General: Chief Complaint: Back Pain/Injury Stated Complaint: weakness Time Seen by Provider: 08/03/22 09:26 Source: patient and family Mode of arrival: wheelchair Limitations: no limitations History of Present Illness: Patient is a nice 82-year-old male who presents to ED today presumedly with his son for complaints of lower back pain. Patient states he recently underwent MRI imaging of his lumbar spine and evaluation with Dr. May and had a plan for surgery tomorrow. He states today during his preop orientation he told them he had not discontinued his Plavix like they recommended so they rescheduled his surgery until Tuesday although later was told by surgery center that is most likely will not be scheduled until next week. Patient states his in home services have been held due to them thinking he was going surgery tomorrow-states they only come for two hours a day. Patient states he is not able to go home and continue caring for himself due to his pain. Patient is hoping for hospitalization until his surgery on Tuesday. Patient states he has not been given anything for his pain (although pharmacy records obtained and it looks like he was actually prescribed hydrocodone and tramadol at some point) and is taking Aleve without relief. PMH significant for atrial flutter, PVD, HTN, chronic alcohol use. Results of his recent MRI are attached below: MR/MR lumbar spine wo con* [id number] IMPRESSION: ? 1.? Acute compression fractures with diffuse edema involving the L1, L3 and L4 vertebral bodies described above. Fluid-filled flexure cleft at L1. 2.? Slight retropulsion L3 posterior superior cortex. This somewhat contributes to chronic appearing central canal stenosis at L2-L3 3.? Severe central canal stenosis L2-L3 and L4-L5 mainly due to disc bulging with facet arthropathy ligamentum flavum hypertrophy. 4.? Moderate central canal stenosis L1-L2 and L3-L4. 5.? Multilevel foraminal narrowing described above. 6.? Moderate facet arthropathy worse at L3-L4 L4-L5. ? MD elicited complaint: back pain Onset (ago): week(s) Timing: constant Severity: severe Location: lumbar spine Radiation: right leg below the knee Exacerbating factors: movement and walking Relieving factors: none Associated symptoms: Reports no associated symptoms and difficulty walking (secondary to pain); Deny abdominal pain, chills, dysuria, fatigue, fever(s) or hematuria Treatments prior to arrival: NSAIDS Work related injury: No Review of Systems Const: Denies: fever(s), chills, body aches, fatigue or malaise Card: Denies: chest pain Resp: Denies: dyspnea GI: Denies: abdominal pain : Denies: flank pain, dysuria, urinary hesitancy, urinary dribbling, urinary incontinence or hematuria Musc: Reports: back pain; Denies: neck pain, extremity swelling, joint pain or joint swelling Neuro: Reports: difficulty walking (secondary to pain); Denies: headache(s) PFSH ED PFSH: Medical History (Updated 08/03/22 @ 16:19 by Ludy Verdugo MD) Chronic alcohol use Chronic hyponatremia Claudication COPD (chronic obstructive pulmonary disease) History of nonmelanoma skin cancer History of smoking HTN (hypertension) 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 8.0 x 19 mm Omnilink stent was placed. Left Proximal Superficial Femoral Artery with 80-90 % stenosis treated with AB ARMADA 35 [id number] [id number]. Family History Other No pertinent family history Social History Smoking and tobacco status: former smoker (20+ years ago) Alcohol intake: current Alcohol type: beer, wine and hard liquor Lives independently: Yes Household members: none Housing: House Physical Exam Const: COMMON NORMALS: no acute distress, average body habitus, patient oriented x3, no limitations, healthy appearing, alert and well nourished GENERAL APPEARANCE: cooperative ORIENTATION/CONSCIOUSNESS: Yes awake, Yes oriented to person, Yes oriented to place and Yes oriented to time : COMMON NORMALS: Yes no CVA tenderness BLADDER/KIDNEY EXAM: Yes no CVA tenderness Back/Pelvis: COMMON NORMALS: no CVA tenderness THORACIC SPINE/UPPER BACK: No thoracic spinal tenderness, No paraspinal muscle tenderness and No paraspinal muscle spasm LUMBAR SPINE/LOWER BACK: Yes ROM limited, Yes lumbar spinal tenderness, Yes paraspinal muscle tenderness and No paraspinal muscle spasm PELVIS: Yes buttock abnormal Buttock abnormal laterality: right Right buttock abnormal details: tenderness SACROILIAC JOINTS: Yes SI joint(s) abnormal SI joint details: tender to palpation (right) SACRUM: no tenderness COCCYX: no tenderness Extremity: COMMON NORMALS: normal to inspection, full ROM, capillary refill normal, no clubbing, cyanosis or edema, no calf tenderness and no pedal edema GENERAL: Yes normal exam except as noted Neuro: COMMON NORMALS: patient oriented x3, moves all extremities, no focal motor deficits and no sensory deficits noted SENSORIUM/ORIENTATION: Yes alert, Yes oriented to person, Yes oriented to place and Yes oriented to time GAIT: Yes Other gait observations present (will attempt ambulation following pain medications) MOTOR EXAM: Abnormal motor strength present (R LE secondary to pain/discomfort) Skin: COMMON NORMALS: no rashes or lesions noted GENERAL SKIN EXAM: no rashes or lesions noted Course ED course: Patient has been given morphine and dilaudid and is still not able to get up from his wheelchair and ambulate. Patient lives alone and tells me he is unable to care for himself secondary to the amount of pain he is having. Consultations: Consultation #1: Dr. May-states the earliest he could do surgery with the Plavix would be Tuesday but he is already booked in the OR; at this time he is hoping surgery can be scheduled for Tuesday Vital Signs: Vital signs: Vital Signs Temperature 97.6 F 08/03/22 09:17 Pulse Rate 85 08/03/22 09:17 Respiratory Rate 18 08/03/22 09:17 Blood Pressure 121/78 08/03/22 09:17 Pulse Oximetry 97 08/03/22 09:17 Oxygen Delivery Me thod 08/03/22 09:17 MDM - Back Pain/Injury Medical Decision Making Patient repeatedly tells me he is unable to care for himself at home. We have tried to ambulate patient 3 different times once with the help of physical therapy patient is not able to walk further than 1-2 steps secondary to pain. This is after Morphine and Dilaudid. I discussed case with Dr. Verdugo who graciously spent an extended amount of time working on patient's case. She was able to contact orthopedics who stated they did have a cancellation for one of Dr. May's surgeries on Tuesday will place patient on the OR schedule for then. Patient will be admitted to the hospital under obs at this time. Medical Records I reviewed the patient's medical records. 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 [employer] Documented by User: Clemente Inman DO 08/03/22 16:21 HPI - Back Pain/Injury General: Chief Complaint: Back Pain/Injury Stated Complaint: weakness Time Seen by Provider: 08/03/22 09:26 [facility] ED PFSH: Medical History (Updated 08/03/22 @ 16:19 by Ludy Verdugo MD) Chronic alcohol use Chronic hyponatremia Claudication COPD (chronic obstructive pulmonary disease) History of nonmelanoma skin cancer History of smoking HTN (hypertension) 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 8.0 x 19 mm Omnilink stent was placed. Left Proximal Superficial Femoral Artery with 80-90 % stenosis treated with AB ARMADA 35 OTW [id number]. Family History Other No pertinent family history Social History Smoking and tobacco status: former smoker (20+ years ago) Alcohol intake: current Alcohol type: beer, wine and hard liquor Lives independently: Yes Household members: none Housing: House Course Vital Signs: Vital signs: Vital Signs Temperature 97.6 F 08/03/22 09:17 Pulse Rate 85 08/03/22 09:17 Respiratory Rate 18 08/03/22 09:17 Blood Pressure 121/78 08/03/22 09:17 Pulse Oximetry 97 08/03/22 09:17 Oxygen Delivery Me thod 08/03/22 09:17 MDM - Back Pain/Injury Medical Decision Making Patient repeatedly tells me he is unable to care for himself at home. We have tried to ambulate patient 3 different times once with the help of physical therapy patient is not able to walk further than 1-2 steps secondary to pain. This is after Morphine and Dilaudid. I discussed case with Dr. Verdugo who graciously spent an extended amount of time working on patient's case. She was able to contact orthopedics who stated they did have a cancellation for one of Dr. May's surgeries on Tuesday will place patient on the OR schedule for then. Patient will be admitted to the hospital under obs at this time. Chart reviewed and patient discussed with midlevel. Agree with assessment and plan. 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
[2022-08-03] MEDS: morphine 4 mg/mL SDV 1 mL IM (10:14)
[2022-08-03] MEDS: HYDROmorphone 1 mg/mL INJ 1 mL SUBCUT (10:51)
--- NOTE | 2022-08-03 13:14 | PC.PHAR ---
Addendum entered by Janelle Martinez 08/04/22 09:46: pt brought in med bottles-all medications entered were the same as the bottles brought in except pt brought in cilostazol 50mg bid dated 06/09/22 which was added to med list today 08/04/22-pt didnt bring in med bottle for pantoprazole 40mg daily-ultram 50mg bid prn or imiquimod cream Addendum entered by Janelle Martinez 08/03/22 13:37: pentoxifylline er 400mg tid filled 06/22/22 30d/s medication [facility] Addendum entered by Janelle Martinez 08/03/22 13:26: kev mcclellan from [facility] they havent been able to actually see the pt states they have been trying to get a hold of the pt for 2-3 weeks-states they dont have a med list because they havent seen pt-medications entered are [facility] the [facility] and what ext med history shows has been filled recently-cilostazol 50mg bid filled 06/09/22 30d/s [facility] not [facility]-pt states he doesnt think he has taken his meds for 3 days maybe longer Original Note: pt states he doesnt know the names of his medications-pt states he has home health with [facility] [phone]-[facility] the pt was discharged from them on 07/06/22-called ma for med list to be faxed [facility] the pt now has [facility] [phone] abhay farr from [facility] she will fax med list-
--- NOTE | 2022-08-03 15:51 | XRR_ITS ---
PROCEDURE INFORMATION: Exam: XR Chest Exam date and time: 08/03/2022 3:58 PM Age: 82 years old Clinical indication: Shortness of breath; Additional info: Tobacco use, shortness of breath TECHNIQUE: Imaging protocol: Radiologic exam of the chest. Views: 1 view. COMPARISON: CR XR chest 1V portable [id number] 12/22/2021 5:32 AM FINDINGS: Lungs: See Pleural spaces finding. Pleural spaces: Bibasilar opacity is seen with blunting of the costophrenic angles, right greater than left. Findings suggest basilar infiltrate with atelectasis and small effusions, right greater than left. No pneumothorax is seen. Findings represent an interval change from prior exam. Heart/Mediastinum: Cardiac silhouette is upper limits of normal. Vasculature: Arteriosclerosis of the thoracic aorta. Bones/joints: Degenerative bony changes. XR/XR chest 1V portable [id number] IMPRESSION: Bibasilar opacity, right greater than left, likely representing infiltrate or pneumonia with atelectasis and associated basilar effusions, for follow-up.
--- NOTE | 2022-08-03 15:55 | PM.HP ---
Providers/Chief Complaint Admitting Physician: Ludy Verdugo MD Primary Care Provider: Sachin Gallagher DO Chief Complaint: weakness History of Present Illness Reginald Pelaez is a 82 year old male who presented to the emergency room from outpatient surgery with intractable back pain and inability to walk. He has known lumbar compression fractures at L1, L3 and L5 that are acute. He was scheduled for surgery tomorrow and was at his preop visit today. He evidently did not fully understand instructions to hold Plavix and had taken it as recently as 2 or 3 days ago. His surgery will not be able to take place as originally planned as he has to be off of Plavix for 72 hours. Given the severity of his pain and difficulty walking even a couple of feet he was sent to the emergency room for evaluation. He received some morphine and later some Dilaudid but continued to have significant pain. He was evaluated by PT who did not feel he was safe for discharge as even with the couple of feet he can walk, he had severe pain leading to unstable gait. Mr. Pelaez has known severe peripheral serial disease with claudication. He underwent angioplasty with stent placement in December of last year and subsequently had a gangrenous second left toe that was removed. He uses a walker at baseline. Any movement causes sharp severe pain in his back. He has some pain in his right hip but attributes that to prior hip surgery from fracture. No radiation of pain down his legs. No numbness or paresthesias. He has frequent muscle spasms after movements. The pain is bad enough it takes his breath away. He has had some increased difficulty breathing lately with some wheezing. His primary care provider started him on some albuterol. He has a long history of smoking previously and has subsequently used chewing tobacco and now uses nicotine pouches. He denies any problems with chest pain. No cough. Able to lie flat in bed without getting short of breath. He does have chronic lower extremity edema. No reports of fever, headache, upper respiratory symptoms. No nausea vomiting or diarrhea. He has had some constipation lately. He also reports difficulty initiating a stream of urine and fully emptying his bladder. Has been having some dysuria and frequency also. He has not been diagnosed with prostatic hypertrophy. No reports of any bleeding or open sores. He gets leg pain with exertion that improves with rest and does get shortness of breath with exertion. No history of heart disease, stroke, kidney disease. He has had some skin cancers. No bleeding or clotting disorders. He had no issues with anesthesia or other surgical complications that he recalls from last fall. Patient is admitted to hospitalist service. Review of Systems General: Reports: Other (ROS as per HPI or as otherwise noted here) Medications/Allergies Home Medications Medication Instructions Recorded Confirmed Last Taken Type multivitamin 1 tab PO DAILY 01/21/22 08/03/22 01/27/22 07:00 History clopidogrel 75 mg tablet 75 mg PO DAILY #30 tabs 01/23/22 08/03/22 01/26/22 Rx diltiazem HCl 120 mg 120 mg PO DAILY #30 caps 01/23/22 08/03/22 01/27/22 07:00 Rx capsule,extended release 24 hr (Cardizem CD) pantoprazole 40 mg tablet,delayed 40 mg PO DAILY #14 tabs 01/23/22 08/03/22 01/27/22 07:00 Rx release furosemide 20 mg tablet 20 mg PO DAILY PRN Edema 03/30/22 08/03/22 Unknown History magnesium oxide 400 mg (241.3 mg 400 mg PO DAILY 03/30/22 08/03/22 Unknown History magnesium) tablet pentoxifylline 400 mg 400 mg PO TID 30 days #90 tabs 04/12/22 08/03/22 Unknown Rx tablet,extended release tramadol 50 mg tablet 50 mg PO BID PRN pain #45 tabs 07/21/22 08/03/22 Unknown Rx hydrocodone 5 mg-acetaminophen 325 1 tab PO Q8H PRN pain 2 weeks #20 07/29/22 08/03/22 Unknown Rx mg tablet tabs albuterol sulfate 90 mcg/actuation 2 puff inhalation Q6H PRN 08/03/22 08/03/22 Unknown History aerosol inhaler (ProAir HFA) Shortness Of Breath cyclobenzaprine 10 mg tablet 10 mg PO TID PRN Muscle Spasm 08/03/22 08/03/22 Unknown History ferrous gluconate 324 mg (37.5 mg 324 mg PO DAILY 08/03/22 08/03/22 Unknown History iron) tablet folic acid 1 mg tablet 1 mg PO DAILY 08/03/22 08/03/22 Unknown History imiquimod 5 % topical cream packet See Rx Instructions .Route .COMPLEX 08/03/22 08/03/22 Unknown History meloxicam 15 mg tablet 15 mg PO DAILY 08/03/22 08/03/22 Unknown History methocarbamol 750 mg tablet 750 mg PO TID 08/03/22 08/03/22 Unknown History piroxicam 20 mg capsule 20 mg PO DAILY heel pain-not to 08/03/22 08/03/22 Unknown History exceed 5 days in a role potassium chloride 20 mEq 10 meq PO DAILY PRN when taking 08/03/22 08/03/22 Unknown History tablet,extended release lasix Allergies Allergy/AdvReac Type Severity Reaction Status Date / Time No Known Allergies Allergy Verified 07/29/22 13:28 PFSH Acute PFSH: Medical History (Updated 08/03/22 @ 16:37 by Ludy Verdugo MD) Chronic alcohol use Chronic hyponatremia Claudication COPD (chronic obstructive pulmonary disease) GERD (gastroesophageal reflux disease) History of nonmelanoma skin cancer History of smoking HTN (hypertension) 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 8.0 x 19 mm Omnilink stent was placed. Left Proximal Superficial Femoral Artery with 80-90 % stenosis treated with AB ARMADA 35 OTW [id number]. Family History Other No pertinent family history Social History (Updated 08/03/22 @ 16:22 by Ludy Verdugo MD) Smoking and tobacco status: current every day smoker smokeless tobacco Smokeless tobacco details: chewless pouches now, former chewing tobacco, former cigarette smoker Alcohol intake: current Alcohol type: hard liquor Alcohol use comment: whiskey, gin - 4-5 drinks most days but not every day Substance/Drug Use: current Substance/Drug use frequency: Special occassions/opportunity only Substance/Drug use type: Marijuana Lives independently: Yes Household members: none Housing: House Vitals/I&O/Wt Last Vital Signs Temp 97.6 F 08/03/22 09:17 Pulse 85 08/03/22 09:17 Resp 18 08/03/22 09:17 BP 121/78 08/03/22 09:17 Pulse Ox 97 08/03/22 09:17 O2 Del Method 08/03/22 09:17 Weight last 48 hrs Weight 79.379 kg Physical Exam Narrative: Patient is awake and alert. History is obtained from him and review of old records. Normocephalic, pupils are equal reactive, extraocular movements are intact. Nasopharynx is clear. Oropharynx with dry mucous membranes. Neck is supple. Lungs are actually clear to auscultation bilaterally presently. No accessory muscle use noted. He has a regular rate and rhythm without any murmurs gallops or rubs. Abdomen is soft, nontender. Extremities with 2+ pitting edema laterally and some chronic stasis changes. Tenderness in the lumbar spine region with palpation. Sensation is intact to light touch at both feet. Data Other Labs: No current labs A&P Assessment and plan (1) Compression fx, lumbar spine: Acute compression fractures L1, L3, L4. Severe central canal stenosis L2-L3, L4-L5. Moderate central canal stenosis L1-L2, L3-L4. He had been seen by spine surgery on 07/29 and was scheduled for surgery 08/04, but has not held Plavix and NSAIDs for the appropriate timeframe. He has associated intractable back pain and gait instability. He has some improvement in the severity of his pain with morphine followed by Dilaudid in the emergency room. He lives alone. PT evaluated him and did not feel he was safe to go back home alone as he can barely take 2 steps without severe pain. He has no family who could assist him, only some neighbors that help out. No history of anesthesia complications. No history of coronary artery disease, stroke, kidney disease. He does drink almost daily but denies ever having had any significant withdrawal symptoms. He uses tobacco products and clinically describes COPD symptoms. Has recently been prescribed albuterol inhaler for the first time. No known history of bleeding or clotting disorders though is on chronic antiplatelet therapy for severe peripheral artery disease. Activity is limited chronically due to claudication and more recently due to acute compression fractures but denies any chest pain, orthopnea or PND. He has chronic lower extremity edema and chronic hyponatremia. (2) Intractable back pain: (3) Gait instability: (4) Severe peripheral arterial disease: Status post peripheral angioplasty with stent placement in December 2021. He subsequently developed gangrene of his left second toe which was amputated. He completed wound care in early June. He has been on Plavix and pentoxifylline. He has not taken either for 2 or 3 days. Continues to have claudication symptoms with ambulation but sounds improved since pentoxifylline was added. (5) HTN (hypertension): Chronically on diltiazem. (6) PAC (premature atrial contraction): Noted during prior hospital stay in December of last year. (7) COPD (chronic obstructive pulmonary disease): Has albuterol inhaler as needed, recently added medication. (8) Slow urinary stream: Reports slow urinary stream that has been worsening over time. Not formally diagnosed with prostatic hypertrophy. (9) GERD (gastroesophageal reflux disease): Chronically on PPI. (10) Nicotine dependence, chewing tobacco, with other nicotine-induced disorders: Currently using nicotine pouches. Previously chewed tobacco. He smokes cigarettes for many years quitting some years ago. (11) Chronic alcohol use: Drinks most days, typically whiskey or gin, 4-5 drinks a day when he does drink. Denies history of alcohol withdrawal symptoms even when he is gone without alcohol for up to a month. Plan Observation admission I have spoken to Dr. May; he is aware of patient's admission Surgery tentatively planned for Tuesday at this time Pain control with oral oxycodone, Tylenol with a 2 g limited day given alcohol use history and if necessary subcutaneous Dilaudid which seemed of helped him the most today along with muscle relaxers if needed Full softener/laxatives to prevent constipation Fall precautions PT and OT Hold Plavix, pentoxifylline, NSAIDs Hold most vitamins Check CMP, CBC, PT and PTT, magnesium, BNP, EKG and chest x-ray Continue home diltiazem May benefit from diuresis but will follow-up laboratory studies and vital signs, clinical exam before making decision As needed albuterol Start on some Flomax Check urinalysis Continue home PPI Nicotine patch if needed Thiamine and folate I have not initiated CIME protocol as upon review of prior hospital stays last fall when he had invasive cardiovascular intervention and subsequent surgery, he did not require administration of any doses of lorazepam despite his drinking history Further plans pending results of ordered studies Supportive care otherwise Need to resume Plavix and pentoxifylline after surgery as soon as possible from postoperative standpoint Findings, concerns and plans were discussed with patient and his friend who was in the room. I have asked that his friend bring all of his medications in including his pillbox so we can better confirm what medications he still has on hand as he has multiple duplicate medications listed such as piroxicam and meloxicam, methocarbamol and Flexeril along with tramadol and hydrocodone for example. At discharge will need to clearly indicate what medications he is to take. Anticipate discharge home with home health at this time although patient potentially could require skilled placement for rehabilitation particularly given multilevel fractures and toe amputation approximately 7 months ago. He has been using a walker at baseline. Full code as per discussion with Mr. Pelaez. Patient's cousin, Devendra Sanon, has power of document review attorney although he has recently moved to [place]. Devendra is Mr. Pelaez's closest living relative. He does have a neighbor who checks on him at times and a friend as well. Attestations Medical Necessity Statement*: Currently anticipate a stay less than 2 midnights for patient with intractable pain and gait instability related to multilevel compression fractures as described. He was evaluated by PT in the emergency room and not felt safe for discharge home. He is also required a couple of doses of pain medications. Coding Level of Care Code 77883 High Time for a total of 150 minutes, includes reviewing past or interval history, examining/interviewing patient, placing orders, counseling patient/family/other support, updating patient/family/other support, discussing plan of care with staff, communicating with other healthcare providers, documenting encounter and coordinating care Diagnoses Compression fx, lumbar spine S32.000A Intractable back pain M54.9 Gait instability R26.81 Severe peripheral arterial disease I73.9 HTN (hypertension) I10 PAC (premature atrial contraction) I49.1 COPD (chronic obstructive pulmonary disease) J44.9 Slow urinary stream R39.198 GERD (gastroesophageal reflux disease) K21.9 Nicotine dependence, chewing tobacco, with other nicotine-induced disorders F17.228 Chronic alcohol use F10.90
--- NOTE | 2022-08-03 15:58 | ECG_ITS ---
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 Measurements Intervals [place] Rate: 100 P: 85 GA: 175 QRS: -22 QRSD: 101 T: 132 QT: 336 QTc: 434 Interpretive Statements SINUS TACHYCARDIA WITH FREQUENT VENTRICULAR PREMATURE COMPLEXES BORDERLINE LEFT AXIS DEVIATION [QRS AXIS < -20] NONSPECIFIC T-WAVE ABNORMALITY Compared to ECG 01/21/2022 14:57:52 T-wave abnormality now present Sinus rhythm no longer present Electronically Signed On 08-03-2022 18:22:25 [employer] by Dean Bledsoe M.D. [id number]
[2022-08-03 16:38] LABS: Basophils # 0.1 10^3/uL (0.0-0.1); Basophils % 0.6 %; Eosinophils # 0.1 10^3/uL (0.0-0.8); Eosinophils % 1.2 %; Hematocrit 45.9 % (42.0-52.0); Hemoglobin 15.1 g/dL (11.7-16.6); Lymphocytes # 1.7 10^3/uL (0.8-4.8); Lymphocytes % 18.4 %; Mean Corpuscular HGB Conc 32.9 g/dL (30.0-36.0); Mean Corpuscular Hemoglobin 32.9 pg (28.0-34.0); Mean Platelet Volume 10.2 fL (7.4-10.4); Monocytes # 0.7 10^3/uL (0.2-0.9); Neutrophils % 72.4 %; Nucleated Red Blood Cells % 0.2 %; Platelet Count 323 10^3/cmm (130-400); Red Blood Count 4.59 10^6/uL (4.1-5.3); Red Cell Distribution Width 14.8 % (12.1-15.1); White Blood Count 9.4 10^3/uL (4.0-10.0)
[2022-08-03 16:54] LABS: INR 1.01 (0.8-1.2); Partial Thromboplastin Time 19.9 SECONDS (23.9-36.7)
[2022-08-03 17:09] LABS: Alanine Aminotransferase 21 U/L (0-41); Albumin Level 3.7 g/dL (3.5-5.2); Alkaline Phosphatase 190 U/L (40-130); Anion Gap 18.1 (5-19); Aspartate Amino Transferase 22 U/L (0-40); Blood Urea Nitrogen 15 mg/dL (8-23); Calcium 9.1 mg/dL (8.5-10.5); Carbon Dioxide 20 mmol/L (22-29); Chloride 101 mmol/L (98-107); Globulin 2.9 g/dL (1.3-4.6); Glucose 102 mg/dL (65-115); Magnesium 2.1 mg/dL (1.7-2.3); NT Pro B Type Natriuretic Pept 11209 pg/mL (0-450); Osmolality Calculated 281 mOsm/kg (285-295); Phosphorus 3.6 mg/dL (2.5-4.5); Potassium 4.1 mmol/L (3.5-5.1); Sodium 135 mmol/L (136-145); Total Bilirubin 1.1 mg/dL (0.15-1.2); Total Protein 6.6 g/dL (6.6-8.7)
[2022-08-03 17:47] VITALS: BP 121/81; PULSE 96; RESP 19; TEMP 36.6; O2SAT 98
[2022-08-03 18:01] VITALS: BP 108/66; PULSE 97; O2SAT 94
[2022-08-03] MEDS: docusate sodium 100 mg Capsule PO (18:46)
[2022-08-03 20:00] VITALS: BP 118/64; PULSE 95; RESP 16; TEMP 36.4; O2SAT 93
[2022-08-03] MEDS: sennosides 8.6 mg Tablet 17.2 MG PO (20:22)
[2022-08-03 20:27] LABS: Add Urine Microscopic? NO; Charge for UA Resulting for Rev
[2022-08-03 20:48] LABS: Bilirubin Urine Neg (Negative); Blood Urine Neg (Negative); Glucose Urine UA Norm (Normal); Ketones Urine 1+ (Negative); Leukocyte Esterase Urine Negative (Negative); Nitrate Urine Negative (Negative); Protein Urine Neg (Negative); Urine Appearance Clear (CLEAR); Urine Color Yellow (Yellow); Urobilinogen Urine Norm (Negative); pH Urine 5 (5-7)
[2022-08-03 22:02] VITALS: PULSE 103; RESP 20; O2SAT 95
[2022-08-04] VITALS (8 sets, daily range): BP systolic 100–142; BP diastolic 65–91; PULSE 63–114; RESP 17–20; TEMP 36.3–36.6; O2SAT 91–96; BMI 27.3
--- NOTE | 2022-08-04 06:28 | P.CONIM_ITS ---
Providers/Reason For Consult Consulting Physician/Specialty*: Orthopedic spine Reason for Consult*: Back pain with leg weakness Attending Physician: Ludy Verdugo MD Primary Care Provider: Sachin Gallagher DO History of Present Illness History of Present Illness Reginald Pelaez is a 82 year old male who is well-known to our clinical practice as he was scheduled for an operative intervention on his back involving an L1 L3 and L4 kyphoplasties with an open decompression L2-3 L3-4 L4-5. Unfortunately did not stop taking his Plavix and with the extent of surgery the increased risk of bleeding the surgery was rescheduled. Due to his increased level of back pain and leg weakness he presented to the emergency room where he was admitted for medical work-up and medical optimization for surgical intervention. Discussed with the patient in room 276 as he is difficult of hearing does not report any new injuries the back pain and leg weakness continues with his inability to walk distance. Patient wishes to proceed with surgical intervention as described in the office. Continues to report back pain that sharp stabbing in nature with numbness and tingling into his legs and feet. Ranks the pain as 6 out of 10 on the pain scale. Activities such as standing walking have made things much worse. Any attempts to put on his shoes or bend makes his pain much worse as well. Rest gives him only temporary relief medications as offered him the best relief. He denies any chest pain shortness of breath. An extensive review of the patient's past medical history, surgical history, allergies, medications, family history, social history, and review of systems was completed Review of Systems General: Reports: Other (ROS as per HPI or as otherwise noted here) Medications/Allergies Home Medications Medication Instructions Recorded Confirmed Last Taken Type multivitamin 1 tab PO DAILY 01/21/22 08/03/22 01/27/22 07:00 History clopidogrel 75 mg tablet 75 mg PO DAILY #30 tabs 01/23/22 08/03/22 01/26/22 Rx diltiazem HCl 120 mg 120 mg PO DAILY #30 caps 01/23/22 08/03/22 01/27/22 07:00 Rx capsule,extended release 24 hr (Cardizem CD) pantoprazole 40 mg tablet,delayed 40 mg PO DAILY #14 tabs 01/23/22 08/03/22 01/27/22 07:00 Rx release furosemide 20 mg tablet 20 mg PO DAILY PRN Edema 03/30/22 08/03/22 Unknown History magnesium oxide 400 mg (241.3 mg 400 mg PO DAILY 03/30/22 08/03/22 Unknown Histo ry magnesium) tablet pentoxifylline 400 mg 400 mg PO TID 30 days #90 tabs 04/12/22 08/03/22 Unknown Rx tablet,extended release tramadol 50 mg tablet 50 mg PO BID PRN pain #45 tabs 07/21/22 08/03/22 Unknown Rx hydrocodone 5 mg-acetaminophen 325 1 tab PO Q8H PRN pain 2 weeks #20 07/29/22 08/03/22 Unknown Rx mg tablet tabs albuterol sulfate 90 mcg/actuation 2 puff inhalation Q6H PRN 08/03/22 08/03/22 Unknown History aerosol inhaler (ProAir HFA) Shortness Of Breath cyclobenzaprine 10 mg tablet 10 mg PO TID PRN Muscle Spasm 08/03/22 08/03/22 Unknown History ferrous gluconate 324 mg (37.5 mg 324 mg PO DAILY 08/03/22 08/03/22 Unknown History iron) tablet folic acid 1 mg tablet 1 mg PO DAILY 08/03/22 08/03/22 Unknown History imiquimod 5 % topical cream packet See Rx Instructions .Route .COMPLEX 08/03/22 08/03/22 Unknown History meloxicam 15 mg tablet 15 mg PO DAILY 08/03/22 08/03/22 Unknown History methocarbamol 750 mg tablet 750 mg PO TID 08/03/22 08/03/22 Unknown History piroxicam 20 mg capsule 20 mg PO DAILY heel pain-not to 08/03/22 08/03/22 Unknown History exceed 5 days in a role potassium chloride 20 mEq 10 meq PO DAILY PRN when taking 08/03/22 08/03/22 Unknown History tablet,extended release lasix Allergies Allergy/AdvReac Type Severity Reaction Status Date / Time No Known Allergies Allergy Verified 07/29/22 13:28 Current Medications Generic Name Dose Route Start Last Admin Trade Name Freq PRN Reason Stop Dose Admin Docusate Sodium 100 mg 08/03/22 18:00 08/03/22 18:46 Docusate Sodium 100 Mg Capsule PO 100 mg BID LINDA Administration Enoxaparin Sodium 40 mg 08/03/22 17:47 08/03/22 18:47 Enoxaparin 40 Mg/0.4 Ml Syringe SUBCUT 08/05/22 07:00 Not Given Q24H LINDA Senna 17.2 mg 08/03/22 21:00 08/03/22 20:22 Sennosides 8.6 Mg Tablet PO 17.2 mg BEDTIME LINDA Administration PFSH Acute PFSH: Medical History (Updated 08/04/22 @ 06:36 by Richard Bolaños PA-C) Chronic alcohol use Chronic hyponatremia Claudication COPD (chronic obstructive pulmonary disease) GERD (gastroesophageal reflux disease) History of nonmelanoma skin cancer History of smoking HTN (hypertension) Malignant neoplasm of glottis Nodular basal cell carcinoma tip of nose, initial treatment with imiquimod, follows with Dr Gil PAC (premature atrial contraction) Severe peripheral arterial disease Surgical History (Updated 08/03/22 @ 16:19 by Ludy Verdugo MD) 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 8.0 x 19 mm Omnilink stent was placed. Left Proximal Superficial Femoral Artery with 80-90 % stenosis treated with AB ARMADA 35 OTW [id number]. Family History Other No pertinent family history Social History (Updated 08/03/22 @ 16:22 by Ludy Verdugo MD) Smoking and tobacco status: current every day smoker smokeless tobacco Smokeless tobacco details: chewless pouches now, former chewing tobacco, former cigarette smoker Alcohol intake: current Alcohol type: hard liquor Alcohol use comment: whiskey, gin - 4-5 drinks most days but not every day Substance/Drug Use: current Substance/Drug use frequency: Special occassions/opportunity only Substance/Drug use type: Marijuana Lives independently: Yes Household members: none Housing: House Vitals/I&O/Wt Last Vital Signs Temp 97.6 F 08/04/22 04:00 Pulse 92 08/04/22 04:00 Resp 17 08/04/22 04:00 BP 126/91 08/04/22 04:00 Pulse Ox 96 08/04/22 04:00 O2 Del Method 08/04/22 04:00 08/03/22 08/03/22 08/04/22 14:59 22:59 06:59 Output Total 400 / 400 Balance -400 / -400 Weight last 48 hrs Weight 185 lb 1 oz Weight 175 lb Physical Exam Narrative: Patient is alert orient x3 has a good general appearance normal mood and affect. Patient is difficult of hearing. Demonstrates dorsiflexion and plantarflexion with difficulty. Exhibits being unsteady with coordination and stability. Moderate palpatory and percussion pain throughout the paraspinou s musculature of the thoracolumbar spine. Decreased sensation light touch down both lower extremities with 4/5 motor strength throughout all motor groups. No palpable pain over the SI joints bilaterally. Negative Shan and Fabere sign. Negative straight leg raise bilaterally. Skin is clear warm with normal sensation to light touch, calves are supple with no medial thigh tenderness, negative Homans' sign. No palpable lymphadenopathy bilaterally. Reflexes are 1+ and symmetric about the knees and Achilles. No hyperreflexia or clonus. Downgoing Babinski's bilaterally. Dorsalis pedis and posterior tibial pulses are 2+. No palpable edema bilaterally. HENMT: COMMON NORMALS: normocephalic and atraumatic HEAD & SCALP: normocephalic and atraumatic OTHER: Difficult of hearing Resp: COMMON NORMALS: normal respiratory effort Cardio: COMMON NORMALS: regular rate and regular rhythm RATE: regular rate RHYTHM: regular rhythm GI: COMMON NORMALS: Soft to palpation and non-tender PALPATION: Yes Soft to palpation : COMMON NORMALS: Yes no CVA tenderness BLADDER/KIDNEY EXAM: Yes no CVA tenderness Back/Pelvis: COMMON NORMALS: no CVA tenderness Psych: COMMON NORMALS: mental status grossly normal and cooperative Data 08/03/22 16:17 08/03/22 16:17 A&P Assessment and plan (1) Compression fx, lumbar spine: Reviewed the surgical procedure with the patient again described an L1 L3 and L4 kyphoplasties with a decompression that is open at L2-3 L3-4 L4-5. Patient nodded in in agreement and was asking what time the surgical procedure would take place. Discussed the surgical procedure scheduled for 08/06/2022 as the patient had taken Plavix yesterday. All questions were discussed. Discussed with Dr. Sima agrees above-stated plan. Encourage incentive spiromet ry for pulmonary toilet. Physical therapy to mobilize as tolerated with the patient. More than 50% of the time spent with the patient today involved coordination of care, counseling and discussion of conservative versus surgical treatment options. Total amount of time spent with the patient was 32 minutes. (2) Spinal stenosis, lumbar region, with neurogenic claudication: (3) Intractable back pain: Coding Level of Care Code Acute Code for [facility] Fwd Diagnoses Compression fx, lumbar spine S32.000A Spinal stenosis, lumbar region, with neurogenic claudication M48.062 Intractable back pain M54.9 Time Spent (min) 32
--- NOTE | 2022-08-04 08:12 | DCPLANNER ---
liability claims manager was asked to look at possible placement ideas for patient. Patient has [facility] insurance, medical case manager called [facility] to see if the facility had a bed. liability claims manager was told that they did have a bed, medical case manager faxed patients information. liability claims manager spoke with [facility] with [facility], patient is only 10% connected with the [facility]. liability claims manager did speak with the physician and the patient about going to the [facility] facility under his medicaid. Patient stated that he did not want to give up his check.
[2022-08-04] MEDS: thiamine 100 mg Tablet PO (08:50)
[2022-08-04] MEDS: folic acid 1 mg Tablet PO (08:50)
[2022-08-04] MEDS: tamsulosin 0.4 mg Capsule PO (08:50)
[2022-08-04] MEDS: dilTIAZem ER (24HR) 120 mg Capsule PO (08:51)
[2022-08-04] MEDS: pantoprazole DR 40 mg Tablet PO (08:51)
[2022-08-04] MEDS: docusate sodium 100 mg Capsule PO (08:51)
--- NOTE | 2022-08-04 09:20 | PC.CHAP ---
Pastoral Care Encounter/Spiritual Assessment Type of Contact [] Declined council member visit [] Patient/Family/Request visit [] Outpatient visit [] Follow-up visit [] Physician referral [] Code/Alert [x] Routine visit [] Staff referral [] Actively dying [x] Patient sleeping [] Family support [] [] Out of room [] Palliative care [] [] Receiving care in room [] Pre-surgical visit [] Trauma [] Long length of stay [] ICU visit [] Other: Relational/Emotional Strength [] Patient feels connected with others/family/visitors/staff [] Distress [] Loneliness/isolation [] Abandonment Spirituality of Patient [] Person of Jovana [] Attends Anglican of their Jovana [] Believes in Prayer [] Reads Bible or Pentecostal materials [] There are Spiritual issues to be addressed Service Supervisor Interventions [] Prayer [] Active listening [] Non-anxious presence [] Spiritual/emotional support [] Crisis/trauma care [] Spiritual counseling [] Bereavement support [] Provided bereavement packet [] Provided Bible/devotional materials [] Provided toy/stuffed animal, coloring book to patient or family member [] Provided Communion [] Anointing/[place] [] Salvation [] Completed spiritual assessment [] Other: Impact on Illness or Injury [] Angry [] Fearful [] Anxious [] Often cries [] Exhaustion [] Unable to work [] Unable to attend faith [] Unable to walk/stand [] Unable to read [] Unable to drive [] Unable to eat/drink [] Unable to sleep [] Unable to be with family [] Patient intubated [] Other: Summary Time spent with patient
--- NOTE | 2022-08-04 11:15 | PM.PN ---
Subjective Subjective: Chewing tobacco when I saw him Mild wheezing noted Asked nursing staff to take his smokeless tobacco and confiscate for now Patient not endorsing pain at rest Vitals/I&O/Wt Last Vital Signs Temp 97.4 F L 08/04/22 08:00 Pulse 114 H 08/04/22 08:00 Resp 20 H 08/04/22 08:00 BP 116/90 08/04/22 08:00 Pulse Ox 91 08/04/22 08:00 O2 Del Method 08/04/22 08:00 08/03/22 08/04/22 08/04/22 22:59 06:59 14:59 Output Total 400 / 400 Balance -400 / -400 Weight last 48 hrs Weight 83.943 kg Weight 79.379 kg Physical Exam Narrative: Euvolemic Mild wheezing Not requiring oxygen Awake and alert No extremity no swelling Pleasant cooperative Hard of hearing Chewing tobacco S1, S2 Data 08/03/22 16:17 08/03/22 16:17 A&P Assessment and plan (1) Spinal stenosis, lumbar region, with neurogenic claudication: (2) HTN (hypertension): (3) Severe peripheral arterial disease: (4) Chronic hyponatremia: (5) Myalgia, multiple sites: (6) Compression fx, lumbar spine: (7) Intractable back pain: (8) Nicotine dependence, chewing tobacco, with other nicotine-induced disorders: (9) COPD (chronic obstructive pulmonary disease): (10) GERD (gastroesophageal reflux disease): Plan Plan for surgical invention on Tuesday Holding Plavix for now Patient needs appropriate medication reconciliation at discharge he has been taking NSAIDs into 3 different forms, he is also taking 2 medications which are muscle relaxants, will treat his medication at the time of discharge for now for pain control he is on opiates along muscle relaxants He was chewing tobacco which has been confiscated Mild wheezing noted Add steroids/inhalers COPD without acute exacerbation not requiring oxygen Full code History of preserved EF 55% I do not know the grading of COPD Patient counseled extensively History of peripheral vascular disease stent was placed in December last year Attestations Medical Necessity Statement*: Awaiting surgery on Tuesday Diagnoses Spinal stenosis, lumbar region, with neurogenic claudication M48.062 HTN (hypertension) I10 Severe peripheral arterial disease I73.9 Chronic hyponatremia E87.1 Myalgia, multiple sites M79.18 Compression fx, lumbar spine S32.000A Intractable back pain M54.9 Nicotine dependence, chewing tobacco, with other nicotine-induced disorders F17.228 COPD (chronic obstructive pulmonary disease) J44.9 GERD (gastroesophageal reflux disease) K21.9
[2022-08-04] MEDS: cyclobenzaprine 10 mg Tablet 5 MG PO ×2 (14:18→23:56)
[2022-08-04] MEDS: oxyCODONE 5 mg IR Tab/Cap 7.5 MG PO ×2 (14:18→23:55)
--- NOTE | 2022-08-04 15:43 | PC.OT ---
OT EVALUATION ORDERS RECEIVED. PATIENT SCHEDULED FOR SURGERY ON TUESDAY. HOLD OT EVALUATION UNTIL AFTER SURGERY THIS WILL BE A CHANGE IN STATUS AND REQUIRE NEW EVALUATION AT THAT TIME.
[2022-08-04] MEDS: enoxaparin 40 mg/0.4 mL Syringe SUBCUT (18:15)
[2022-08-04] MEDS: sennosides 8.6 mg Tablet 17.2 MG PO (21:13)
[2022-08-04] MEDS: albuterol 2.5 mg/3 mL Neb INHALATION (23:49)
[2022-08-04] MEDS: budesonide 0.5 mg/2 mL Neb INHALATION (23:49)
[2022-08-05] VITALS (9 sets, daily range): BP systolic 109–125; BP diastolic 52–84; PULSE 75–105; RESP 18–22; TEMP 36.3–36.8; O2SAT 90–96; BMI 27.0
--- NOTE | 2022-08-05 06:34 | PM.PN ---
Subjective Subjective: Patient resting comfortably. Reports back pain with attempts to move or sit up. Denies any new injuries. Continues to have back and leg pain with weakness. Denies chest pain shortness of breath. Vitals/I&O/Wt Last Vital Signs Temp 97.4 F L 08/05/22 04:00 Pulse 99 08/05/22 04:00 Resp 19 H 08/05/22 04:00 BP 109/52 08/05/22 04:00 Pulse Ox 90 08/05/22 04:00 O2 Del Method 08/05/22 04:00 Weight last 48 hrs Weight 183 lb 2 oz Weight 185 lb 1 oz Weight 175 lb Physical Exam Narrative: Patient is alert orient x3 has good general appearance difficult of hearing. Tender with palpation in the lumbar spine with palpation. Decreased sensation light touch down both lower extremities he wiggles his toes can plantarflex and dorsiflex both feet without any problem. Negative logroll bilaterally pulses are weak but palpable calves are supple no medial thigh tenderness. HENMT: COMMON NORMALS: normocephalic HEAD & SCALP: normocephalic Resp: COMMON NORMALS: normal respiratory effort Cardio: COMMON NORMALS: regular rate and regular rhythm RATE: regular rate RHYTHM: regular rhythm GI: COMMON NORMALS: Soft to palpation and non-tender PALPATION: Yes Soft to palpation : COMMON NORMALS: Yes no CVA tenderness BLADDER/KIDNEY EXAM: Yes no CVA tenderness Back/Pelvis: COMMON NORMALS: no CVA tenderness Psych: COMMON NORMALS: mental status grossly normal and cooperative Data 08/03/22 16:17 08/03/22 16:17 A&P Assessment and plan (1) Spinal stenosis, lumbar region, with neurogenic claudication: Discussed operative intervention for kyphoplasty and decompression on Tuesday. Discussed keeping him n.p.o. after midnight tonight. Address any questions that he had came up with since his hospitalization. Continue incentive spirometer for pulmonary toilet. (2) Compression fx, lumbar spine: Attestations Medical Necessity Statement*: Defer to medical team Coding Level of Care Code 90295 Diagnoses Spinal stenosis, lumbar region, with neurogenic claudication M48.062 Compression fx, lumbar spine S32.000A
[2022-08-05] MEDS: thiamine 100 mg Tablet PO (10:20)
[2022-08-05] MEDS: pantoprazole DR 40 mg Tablet PO (10:21)
[2022-08-05] MEDS: folic acid 1 mg Tablet PO (10:21)
[2022-08-05] MEDS: docusate sodium 100 mg Capsule PO ×2 (10:21→18:06)
[2022-08-05] MEDS: tamsulosin 0.4 mg Capsule PO (10:21)
[2022-08-05] MEDS: dilTIAZem ER (24HR) 120 mg Capsule PO (10:21)
--- NOTE | 2022-08-05 11:06 | P.PN_ITS ---
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 Plan for surgery tomorrow Vitals/I&O/Wt Last Vital Signs Temp 97.7 F 08/05/22 07:44 Pulse 104 H 08/05/22 07:44 Resp 18 08/05/22 07:44 BP 112/71 08/05/22 07:44 Pulse Ox 92 08/05/22 07:44 O2 Del Method 08/05/22 04:00 08/04/22 08/05/22 08/05/22 22:59 06:59 14:59 Intake Total 260 / 260 Balance 260 / 260 Weight last 48 hrs Weight 83.064 kg Weight 83.943 kg Physical Exam Narrative: Awake and alert Sitting in recliner GCS 15 Abdomen soft S1, S2 Euvolemic No active wheezing In distress because of back pain Data 08/03/22 16:17 08/03/22 16:17 A&P Assessment and plan (1) Spinal stenosis, lumbar region, with neurogenic claudication: (2) Severe peripheral arterial disease: (3) HTN (hypertension): (4) Chronic hyponatremia: (5) PAC (premature atrial contraction): (6) Amputated toe of left foot: (7) Lumbar disc disease with radiculopathy: (8) Right lower lobe pneumonia: Plan Plan for surgery tomorrow/kyphoplasty possibility for right lower lobe pneumonia Afebrile DuoNeb I will give him 1 dose of Lasix as well Clinically he is euvolemic, we will give him levofloxacin N.p.o. after midnight Avoid DVT prophylaxis today Patient is off Plavix, history of peripheral vascular disease no active pain Continue folic acid and thiamine History of alcohol abuse Disposition plan will be decided after surgery and physical therapy Continue opioids along bowel regimen Patient will need adjustment in his medication at the time of discharge Attestations Medical Necessity Statement*: Surgery tomorrow Diagnoses Spinal stenosis, lumbar region, with neurogenic claudication M48.062 Severe peripheral arterial disease I73.9 HTN (hypertension) I10 Chronic hyponatremia E87.1 PAC (premature atrial contraction) I49.1 Amputated toe of left foot S98.132A Lumbar disc disease with radiculopathy M51.16 Right lower lobe pneumonia J18.9
[2022-08-05] MEDS: FUROsemide 10 mg/mL SDV 2mL 20 MG IVP (11:40)
[2022-08-05] MEDS: ipratropium-albuterol 3 mL Neb INHALATION (12:15)
[2022-08-05] MEDS: budesonide 0.5 mg/2 mL Neb INHALATION (19:59)
[2022-08-05] MEDS: sennosides 8.6 mg Tablet 17.2 MG PO (20:16)
[2022-08-06] VITALS (18 sets, daily range): BP systolic 94–140; BP diastolic 63–100; PULSE 81–113; RESP 16–22; TEMP 36.2–36.8; O2SAT 86–98
[2022-08-06 05:49] LABS: Basophils # 0.1 10^3/uL (0.0-0.1); Basophils % 0.3 %; Eosinophils # 0.1 10^3/uL (0.0-0.8); Eosinophils % 0.7 %; Hemoglobin 13.9 g/dL (11.7-16.6); Lymphocytes # 1.5 10^3/uL (0.8-4.8); Lymphocytes % 9.9 %; Mean Corpuscular HGB Conc 33.9 g/dL (30.0-36.0); Mean Corpuscular Hemoglobin 32.9 pg (28.0-34.0); Mean Corpuscular Volume 96.9 fl (80-94); Monocytes # 0.9 10^3/uL (0.2-0.9); Monocytes % 5.5 %; Neutrophils # 12.81 10^3/uL (1.8-7.7); Neutrophils % 83.1 %; Nucleated Red Blood Cells % 0 %; Platelet Count 319 10^3/cmm (130-400); Red Blood Count 4.23 10^6/uL (4.1-5.3); Red Cell Distribution Width 14.6 % (12.1-15.1); White Blood Count 15.4 10^3/uL (4.0-10.0)
[2022-08-06 06:10] LABS: Anion Gap 22.3 (5-19); Blood Urea Nitrogen 14 mg/dL (8-23); Calcium 8.8 mg/dL (8.5-10.5); Carbon Dioxide 16 mmol/L (22-29); Chloride 100 mmol/L (98-107); Glucose 101 mg/dL (65-115); Osmolality Calculated 279 mOsm/kg (285-295); Potassium 4.3 mmol/L (3.5-5.1); Sodium 134 mmol/L (136-145)
--- NOTE | 2022-08-06 06:38 | PM.PN ---
Subjective Subjective: Leukocytosis noted Afebrile Patient is comfortable On room air Chronic back pain Plan for surgery today Sodium 134 Vitals/I&O/Wt Last Vital Signs Temp 98.2 F 08/06/22 04:02 Pulse 109 H 08/06/22 04:02 Resp 22 H 08/06/22 04:02 BP 125/71 08/06/22 04:02 Pulse Ox 90 08/06/22 04:02 O2 Del Method 08/06/22 04:02 08/05/22 08/05/22 08/06/22 14:59 22:59 06:59 Intake Total 560 / 560 240 / 800 0 / 800 Output Total 900 / 900 0 / 900 Balance 560 / 560 -660 / -100 0 / -100 Weight last 48 hrs Weight 79.424 kg Weight 83.064 kg Physical Exam Narrative: Patient resting comfortably Chronic pain S1, S2 sinus tachycardia Afebrile GCS 15 Nonfocal neuro exam Blood pressure stable Abdomen soft Euvolemic Data 08/06/22 05:20 08/06/22 05:20 A&P Assessment and plan (1) Right lower lobe pneumonia: (2) Spinal stenosis, lumbar region, with neurogenic claudication: (3) HTN (hypertension): (4) Chronic hyponatremia: (5) Severe peripheral arterial disease: (6) Intractable back pain: (7) COPD (chronic obstructive pulmonary disease): (8) Nicotine dependence, chewing tobacco, with other nicotine-induced disorders: (9) Chronic alcohol use: (10) Slow urinary stream: (11) GERD (gastroesophageal reflux disease): Plan Chronic hyponatremia: Sodium 134 continue normal saline He was given Lasix yesterday which I would hold today Community-acquired pneumonia he is on antibiotic for now afebrile Not requiring oxygen Underlying COPD Chronic back pain anticipation for surgery today Alcohol abuse continue thiamine and folic acid Premature atrial contractions Continue diltiazem DVT prophylaxis on hold N.p.o. Full code Patient might need SNF after surgery Attestations Medical Necessity Statement*: Surgery today Diagnoses Right lower lobe pneumonia J18.9 Spinal stenosis, lumbar region, with neurogenic claudication M48.062 HTN (hypertension) I10 Chronic hyponatremia E87.1 Severe peripheral arterial disease I73.9 Intractable back pain M54.9 COPD (chronic obstructive pulmonary disease) J44.9 Nicotine dependence, chewing tobacco, with other nicotine-induced disorders F17.228 Chronic alcohol use F10.90 Slow urinary stream R39.198 GERD (gastroesophageal reflux disease) K21.9
--- NOTE | 2022-08-06 07:33 | ANES.PREANE2 ---
Pre-Anesthetic Assessment Height/Weight: Height 1.75 m Weight 79.424 kg Temp Pulse Resp BP Pulse Ox O2 Del Method O2 Flow Rate 97.9 F 113 H 16 130/100 94 2 08/06/22 07:04 08/06/22 07:04 08/06/22 07:04 08/06/22 07:04 08/06/22 07:05 08/06/22 07:05 08/06/22 07:05 Preop Diagnosis: Lumbar compression Fx, Lumbar Stenosis w/Neurogenic Claudication Operation Date: 08/06/22 08:05 Proposed Procedures p Kyphoplasty L1,L3,L4, Decomp L2/3,L3/4,: 86147q1, 47163,23237, M51.16(Not Applicable) - DO linda Reis Lumbar Spine Decompression:L2/3 L34/(Not Applicable) - Kirt May DO Familial anesthetic complications: None Was Beta Haley taken within 24 hours: N/A Was Clonidine taken within 24 hours: N/A Last intake: > 8 hrs Social No alcohol and No tobacco extensive hx of smoking and tobacco use, now on nicotine patches Exam alert, oriented x 3 and regular rate & rhythm coarse breath sounds b/l Airway Mallampati: Class II Dentition: other (no teeth) Pulmonary Chronic Obstructive Pulmonary Disease ( On O2) CXR IMPRESSION: Bibasilar opacity, right greater than left, likely representing infiltrate or pneumonia with atelectasis and associated basilar effusions, for follow-up. Patient informed of possibility of prolonged intubation post surgery d/t existing respiratory status CV/HEM Arrythmia (tachycardia), Hypertension and Peripheral Vascular Disease Echo 2021 CONCLUSIONS ?Normal left ventricular size and systolic function, EF55 %. No ?regional wall motion abnormalities. ?Mild biatrial enlargementThickened mitral valve. Mild mitral ?annular calcification. Mild-moderate mitral valve regurgitation. ?Thickened aortic valve. ?[id number] tricuspid valve regurgitation. ?Trace pulmonary valve regurgitation. ?Estimated pulmonary artery peak systolic pressure 29 mmHg ?There are no intracardiac masses. ?There is no pericardial effusion. ?Possible moderate pleural effusion on the left side ?No similar previous studies are available for comparison GI Gastroesophageal Reflux Disease Metabolic hyponatremia Anesthetic Plan ASA status: 4 Anesthesia: General Risk of > 500 ml blood loss (7ml/kg in children): No Medications/Allergies Home Medications Medication Instructions Recorded Confirmed Last Taken Type multivitamin 1 tab PO DAILY 01/21/22 08/03/22 01/27/22 07:00 History clopidogrel 75 mg tablet 75 mg PO DAILY #30 tabs 01/23/22 08/03/22 01/26/22 Rx diltiazem HCl 120 mg 120 mg PO DAILY #30 caps 01/23/22 08/03/22 01/27/22 07:00 Rx capsule,extended release 24 hr (Cardizem CD) furosemide 20 mg tablet 20 mg PO DAILY PRN Edema 03/30/22 08/03/22 Unknown History magnesium oxide 400 mg (241.3 mg 400 mg PO DAILY 03/30/22 08/03/22 Unknown History magnesium) tablet pentoxifylline 400 mg 400 mg PO TID 30 days #90 tabs 04/12/22 08/03/22 Unknown Rx tablet,extended release tramadol 50 mg tablet 50 mg PO BID PRN pain #45 tabs 07/21/22 08/03/22 Unknown Rx hydrocodone 5 mg-acetaminophen 325 1 tab PO Q8H PRN pain 2 weeks #20 07/29/22 08/03/22 Unknown Rx mg tablet tabs albuterol sulfate 90 mcg/actuation 2 puff inhalation Q6H PRN 08/03/22 08/03/22 Unknown History aerosol inhaler (ProAir HFA) Shortness Of Breath cyclobenzaprine 10 mg tablet 10 mg PO TID PRN Muscle Spasm 08/03/22 08/03/22 Unknown History ferrous gluconate 324 mg (37.5 mg 324 mg PO DAILY 08/03/22 08/03/22 Unknown History iron) tablet folic acid 1 mg tablet 1 mg PO DAILY 08/03/22 08/03/22 Unknown History imiquimod 5 % topical cream packet See Rx Instructions .Route .COMPLEX 08/03/22 08/03/22 Unknown History meloxicam 15 mg tablet 15 mg PO DAILY 08/03/22 08/03/22 Unknown History methocarbamol 750 mg tablet 750 mg PO TID 08/03/22 08/03/22 Unknown History piroxicam 20 mg capsule 20 mg PO DAILY heel pain-not to 08/03/22 08/03/22 Unknown History exceed 5 days in a role potassium chloride 20 mEq 10 meq PO DAILY PRN when taking 08/03/22 08/03/22 Unknown History tablet,extended release lasix cilostazol 50 mg tablet 50 mg PO BID 08/04/22 08/04/22 Unknown History Allergies Allergy/AdvReac Type Severity Reaction Status Date / Time No Known Allergies Allergy Verified 07/29/22 13:28 Current Medications Generic Name Dose Route Start Last Admin Trade Name Freq PRN Reason Stop Dose Admin Albuterol/Ipratropium 3 ml 08/05/22 11:09 08/05/22 12:15 Ipratropium-Albuterol 3 Ml Neb INHALATION 3 ml Q6H PRN Administration SHORTNESS OF BREATH Budesonide 0.5 mg 08/04/22 20:00 08/05/22 19:59 Budesonide 0.5 Mg/2 Ml Neb INHALATION 0.5 mg BID.RESPIRATORY LINDA Administration Cyclobenzaprine HCl 5 mg 08/03/22 17:47 08/04/22 23:56 Cyclobenzaprine 10 Mg Tablet PO 5 mg TID PRN Administration MUSCLE SPASMS Diltiazem HCl 120 mg 08/04/22 09:00 08/05/22 10:21 Diltiazem Er (24hr) 120 Mg Capsule PO 120 mg DAILY LINDA Administration Docusate Sodium 100 mg 08/03/22 18:00 08/05/22 18:06 Docusate Sodium 100 Mg Capsule PO 100 mg BID LINDA Administration Folic Acid 1 mg 08/04/22 09:00 08/05/22 10:21 Folic Acid 1 Mg Tablet PO 1 mg DAILY LINDA Administration Furosemide 20 mg 08/05/22 11:30 08/05/22 11:40 Furosemide 10 Mg/Ml Sdv 2ml IVP 20 mg Q24H LINDA Administration Oxycodone HCl 7.5 mg 08/03/22 15:51 08/04/22 23:55 Oxycodone 5 Mg Ir Tab/Cap PO 7.5 mg Q6H PRN Administration moderate to severe pain 1st Pantoprazole Sodium 40 mg 08/04/22 09:00 08/05/22 10:[address] 40 Mg Tablet PO 40 mg DAILY LINDA Administration Senna 17.2 mg 08/03/22 21:00 08/05/22 20:16 Sennosides 8.6 Mg Tablet PO 17.2 mg BEDTIME LINDA Administration Tamsulosin HCl 0.4 mg 08/04/22 09:00 08/05/22 10:21 Tamsulosin 0.4 Mg Capsule PO 0.4 mg DAILY LINDA Administration Thiamine Mononitrate 100 mg 08/04/22 09:00 08/05/22 10:20 Thiamine 100 Mg Tablet PO 100 mg DAILY LINDA Administration COUNTS INCLUDE 234 BEDS AT THE [facility] Anesthesia Medical History (Updated 08/05/22 @ 11:09 by Basim Hernandez MD) Chronic alcohol use Chronic hyponatremia Claudication COPD (chronic obstructive pulmonary disease) GERD (gastroesophageal reflux disease) History of nonmelanoma skin cancer History of smoking HTN (hypertension) 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 8.0 x 19 mm Omnilink stent was placed. Left Proximal Superficial Femoral Artery with 80-90 % stenosis treated with AB ARMADA 35 OTW [id number]. Family History Other No pertinent family history Social History (Updated 08/03/22 @ 16:22 by Ludy Verdugo MD) Smoking and tobacco status: current every day smoker smokeless tobacco Smokeless tobacco details: chewless pouches now, former chewing tobacco, former cigarette smoker Alcohol intake: current Alcohol type: hard liquor Alcohol use comment: whiskey, gin - 4-5 drinks most days but not every day Substance/Drug Use: current Substance/Drug use frequency: Special occassions/opportunity only Substance/Drug use type: Marijuana Lives independently: Yes Household members: none Housing: House Data Anesthesia 08/06/22 05:20 08/06/22 05:20 Short CBC 08/06/22 Range/Units 05:20 WBC 15.4 H (4.0-10.0) 10^3/uL Hgb 13.9 (11.7-16.6) g/dL Hct 41.0 L (42.0-52.0) % MCV 96.9 H (80-94) fl Plt Count 319 (130-400) 10^3/cmm Neut % (Auto) 83.1 % Neut # (Auto) 12.81 H (1.8-7.7) 10^3/uL BMP 08/06/22 05:20 Sodium 134 L Potassium 4.3 Chloride 100 Carbon Dioxide 16 L BUN 14 Creatinine 0.9 Glucose 101 Calcium 8.8 Cardiac Studies: Echocardiogram 01/21/22
--- NOTE | 2022-08-06 07:47 | W.PM.OPSUD ---
Surgery/Procedure H&P Update DATE OF PROCEDURE: August 06, 2022 DATE H&P PERFORMED: 08/04/22 H&P UPDATE INFORMATION: I have reviewed H&P completed within last 30 days, I have examined patient prior to procedure and No changes to prior documentation PREOP DIAGNOSIS: Lumbar compression Fx, Lumbar Stenosis w/Neurogenic Claudication PLANNED PROCEDURE: Operation Date: 08/06/22 08:05 Proposed Procedures p Kyphoplasty L1,L3,L4, Decomp L2/3,L3/4,: [id number], 43855,77130, M51.16(Not Applicable) - DO linda Reis Lumbar Spine Decompression:L2/3 L34/(Not Applicable) - Kirt May DO
[2022-08-06] MEDS: ceFAZolin 2,000 MG in sodium chloride 0.9% (plus) 50 ML 100 MG IV ×3 (08:18→23:47)
[2022-08-06] MEDS: sodium chloride 0.9% 1,000 ML 30 ML IV (08:19)
[2022-08-06] MEDS: lidocaine-epi 1% 20 mL INJ INJECTION (09:11)
[2022-08-06] MEDS: iohexol 300 mg/mL 50 mL Btl (OR ONLY) XX (09:18)
--- NOTE | 2022-08-06 10:17 | XR_ITS ---
WS: [id number] Lumbar spine, C-arm fluoroscopy views, 08/06/2022 Clinical Data: OR PICS Comparison: Lumbar spine, 07/29/2022 Findings: Dr. Hernandez injected kyphoplasty material into 2 lower lumbar vertebral bodies. XR/XR lumbar spine 1V [id number] Impression: Lumbar vertebral body kyphoplasties .
--- NOTE | 2022-08-06 10:27 | PM.OP ---
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 L1 kyphoplasty 2. L3 Kyphoplsty 3. L4 Kyphoplasty Surgeon: Kirt May Clinical Quality Manager: Richard Bolaños Clinical Quality Manager: The surgical assistant certified, Richard Bolaños, PAC was needed for his expertise with compression fractures. He was important and necessary throughout the procedure to complete in a safe and timely manner. He assisted with patient positioning prepping and draping. Procedure: 1. L1 kyphoplasty 2. L3 Kyphoplsty 3. L4 Kyphoplasty Patient brought the op suite after undergoing anesthesia placed in the prone position. Plan was to do kyphoplasty's and decompressions however patient's blood pressure was soft and required epinephrine to keep his pressures up. At this point elected only to proceed with doing kyphoplasty and not do an open decompression as concern for the amount of bleeding and length of time under anesthesia. This point patient was prepped and draped in the normal sterile fashion in the prone position. Biplanar C-arm was brought in. Tenderness about L1 first. The left pedicle was incision was made the awl was inserted followed by the drill followed by the balloon balloon was inflated balloon was deflated. And then cement was placed into the L1 vertebral body. If you had good fill AP lateral fluoroscopy ensured the cement was in the prone position. Next tension was brought to the L4 level. Skin incision made over the left pedicle awl was inserted drill was inserted bone was inserted balloon was applied. Pelvic needed to also go to the right side at this level. Skin incision was made over the right pedicle was inserted drill was inserted balloon was inflated. And then attention was brought to the L5 level. The skin incision made over the left pedicle awl was inserted drill was inserted balloon was inserted and then I had good fill of the balloon in this level. Cement was then placed into the L5 level. Had good fill across the entire body AP lateral fluoroscopy confirmed this. Was brought back to the L4 level was in inserted into the left side mostly remain on the left side some traced over to the right side then cement was injected on the right side which completed the full of the vertebral body. AP lateral fluoroscopy ensured there was good for and cement was in good position at L1 L3 and L4. Wounds irrigated closed nylon suture sterile dressings were applied patient was transferred to the PACU in stable condition.
[2022-08-06] MEDS: lactated ringers 1,000 ML 90 ML IV ×2 (11:33→21:16)
[2022-08-06] MEDS: FUROsemide 10 mg/mL SDV 2mL 20 MG IVP (11:35)
[2022-08-06] MEDS: ketorolac 30 mg/mL INJ IVP (11:39)
[2022-08-06] MEDS: levoFLOXacin 750 mg Tablet PO (12:00)
--- NOTE | 2022-08-06 12:26 | ANE.PACU2 ---
Inpatient post-anesthesia follow up: Airway intact: Yes Vital signs: Temperature 97.5 F Pulse Rate 105 Respiratory Rate 20 Blood Pressure 126/73 Pulse Oximetry 95 Oxygen Delivery Me thod Oxymask Oxygen Flow Rate 8.5 Fraction of Inspir ed Oxygen Hydration adequate: Yes Nausea and vomiting: No Pain level: 1 Mental status: Baseline Additional Comments: Patient's SPO2 improved to mid 90s after coughing
[2022-08-06] MEDS: HYDROcodone-acetaminophen 5-325 mg Tablet PO (17:36)
[2022-08-06] MEDS: docusate sodium 100 mg Capsule PO (17:39)
[2022-08-06] MEDS: budesonide 0.5 mg/2 mL Neb INHALATION (19:48)
[2022-08-06 20:18] LABS: Hematocrit 39.5 % (42.0-52.0); Hemoglobin 12.7 g/dL (11.7-16.6)
[2022-08-06] MEDS: lactated ringers 500 ML 999 ML IV (20:18)
[2022-08-06] MEDS: calcium gluconate 0.9% NaCL 1 GM/50 ML PREMIX IV (20:20)
[2022-08-06] MEDS: sennosides 8.6 mg Tablet 17.2 MG PO (20:21)
[2022-08-07] MEDS: cyclobenzaprine 10 mg Tablet 5 MG PO (00:46)
[2022-08-07 03:49] VITALS: BP 103/70; PULSE 102; RESP 21; TEMP 36.6; O2SAT 93
[2022-08-07] MEDS: levoFLOXacin 750 mg Tablet PO (05:49)
[2022-08-07 06:02] LABS: Basophils % 0.1 %; Hematocrit 37.8 % (42.0-52.0); Hemoglobin 12.1 g/dL (11.7-16.6); Lymphocytes # 0.8 10^3/uL (0.8-4.8); Mean Corpuscular Hemoglobin 31.6 pg (28.0-34.0); Mean Corpuscular Volume 98.7 fl (80-94); Mean Platelet Volume 10.3 fL (7.4-10.4); Monocytes # 0.8 10^3/uL (0.2-0.9); Monocytes % 6.9 %; Neutrophils # 9.67 10^3/uL (1.8-7.7); Neutrophils % 85.6 %; Nucleated Red Blood Cells % 0 %; Platelet Count 294 10^3/cmm (130-400); Red Blood Count 3.83 10^6/uL (4.1-5.3); Red Cell Distribution Width 14.4 % (12.1-15.1); White Blood Count 11.3 10^3/uL (4.0-10.0)
[2022-08-07 06:23] LABS: Blood Urea Nitrogen 22 mg/dL (8-23); Calcium 9.1 mg/dL (8.5-10.5); Carbon Dioxide 18 mmol/L (22-29); Chloride 102 mmol/L (98-107); Creatinine Clr Calc Pharmacy 53.2467; Glucose 120 mg/dL (65-115); Osmolality Calculated 283 mOsm/kg (285-295); Sodium 134 mmol/L (136-145)
[2022-08-07 06:30] LABS: Anion Gap 18.9 (5-19); Potassium 4.9 mmol/L (3.5-5.1)
--- NOTE | 2022-08-07 07:38 | P.DS_ITS ---
Discharge Providers Date of Admission: 08/06/22 07:08 Date of Discharge: August 06, 2022 Attending Provider at Admission: Ludy Verdugo MD Attending Provider at Discharge: Basim Hernandez MD Primary Care Provider: Sachin Gallagher DO Diagnoses at Discharge Discharge Diagnosis (1) Right lower lobe pneumonia: Status: Acute (2) Spinal stenosis, lumbar region, with neurogenic claudication: Status: Acute (3) HTN (hypertension): Status: Chronic (4) Chronic hyponatremia: Status: Chronic (5) Severe peripheral arterial disease: Status: Chronic (6) Intractable back pain: Status: Acute (7) COPD (chronic obstructive pulmonary disease): Status: Chronic (8) Nicotine dependence, chewing tobacco, with other nicotine-induced disorders: Status: Chronic (9) Chronic alcohol use: Status: Chronic (10) Slow urinary stream: Status: Acute (11) GERD (gastroesophageal reflux disease): Status: Chronic Reason for Visit Reason for Visit: weakness Hospital Course Hospital Course 82-year-old male who was admitted for pain control for his compression fracture, intractable back pain, he did not stop Plavix at the right time which she was taking for recent stent in peripheral vessel in his legs Plavix was held until Tuesday kyphoplasty was done on 08/[address] May, postoperatively patient became hypotensive required levo transiently however he recovered well in PACU and he was transferred to [facility], he remained on IV fluids, he was getting extended release Cardizem, Lasix was held. Preserved EF. As per the anesthesiologist patient had a lot of thick secretions attached to the endotracheal tube. He does seem to have pneumonia/consolidation evidence on his chest x-ray. He was given levofloxacin. Kyphoplasty was done by Dr. May and decompression was not attempted because of low blood pressure. This will be done at a different time as staged procedure. Patient does have history of alcohol abuse, active smoker, required thiamine and folic acid, no active signs of withdrawal, he does have history of premature atrial contraction requires diltiazem Physical Exam Narrative: Patient is awake and alert Not been able to sleep He is doing puzzles in the room Very pleasant and cooperative Patient is stating he is motivated to go home He has been walking independently with minimal assistance Discharge Data Studies Completed and Pending Completed Studies During Hospitalization Category Date Time Status XR chest 1V portable [id number] Routine Exams 08/03/22 15:51 Completed XR lumbar spine 1V [id number] Routine Exams 08/06/22 10:17 Completed Pending at discharge Category Date Time Status Basic Metabolic Panel AM LABS Lab 08/07/22 04:00 Ordered Complete Blood Count w/Auto AM LABS Lab 08/07/22 04:00 Ordered Sputum Culture and Gram Stain Routine Lab 08/05/22 11:12 Uncollected Radiology Impressions Chest X-Ray 08/03/22 15:51 IMPRESSION: Bibasilar opacity, right greater than left, likely representing infiltrate or pneumonia with atelectasis and associated basilar effusions, for follow-up. Lumbar Spine X-Ray 08/06/22 10:17 Impression: Lumbar vertebral body kyphoplasties . Laboratory Results WBC 15.4 10^3/uL (4.0-10.0) H 08/06/22 05:20 RBC 4.23 10^6/uL (4.1-5.3) 08/06/22 05:20 Hgb 13.9 g/dL (11.7-16.6) 08/06/22 05:20 Hct 41.0 % (42.0-52.0) L 08/06/22 05:20 MCV 96.9 fl (80-94) H 08/06/22 05:20 MCH 32.9 pg (28.0-34.0) 08/06/22 05:20 MCHC 33.9 g/dL (30.0-36.0) 08/06/22 05:20 RDW 14.6 % (12.1-15.1) 08/06/22 05:20 Plt Count 319 10^3/cmm (130-400) 08/06/22 05:20 MPV 10.0 fL (7.4-10.4) 08/06/22 05:20 Neut % (Auto) 83.1 % 08/06/22 05:20 Lymph % (Auto) 9.9 % 08/06/22 05:20 [place] % (Auto) 5.5 % 08/06/22 05:20 Eos % (Auto) 0.7 % 08/06/22 05:20 Baso % (Auto) 0.3 % 08/06/22 05:20 Neut # (Auto) 12.81 10^3/uL (1.8-7.7) H 08/06/22 05:20 Lymph # (Auto) 1.5 10^3/uL (0.8-4.8) 08/06/22 05:20 [place] # (Auto) 0.9 10^3/uL (0.2-0.9) 08/06/22 05:20 Eos # (Auto) 0.1 10^3/uL (0.0-0.8) 08/06/22 05:20 Baso # (Auto) 0.1 10^3/uL (0.0-0.1) 08/06/22 05:20 Nucleated RBC % (auto) 0 % 08/06/22 05:20 Nucleated RBCs # 0.0 /100WBC 08/06/22 05:20 PT 13.60 SECONDS (12.1-14.9) 08/03/22 16:17 INR 1.01 (0.8-1.2) 08/03/22 16:17 APTT 19.9 SECONDS (23.9-36.7) L 08/03/22 16:17 Sodium 134 mmol/L (136-145) L 08/06/22 05:20 Potassium 4.3 mmol/L (3.5-5.1) 08/06/22 05:20 Chloride 100 mmol/L (98-107) 08/06/22 05:20 Carbon Dioxide 16 mmol/L (22-29) L 08/06/22 05:20 Anion Gap 22.3 (5-19) H 08/06/22 05:20 BUN 14 mg/dL (8-23) 08/06/22 05:20 Creatinine 0.9 mg/dL (0.7-1.2) 08/06/22 05:20 GFR Calculation Not Reportable 08/06/22 05:20 Glucose 101 mg/dL (65-115) 08/06/22 05:20 Calculated Osmolality 279 mOsm/kg (285-295) L 08/06/22 05:20 Calcium 8.8 mg/dL (8.5-10.5) 08/06/22 05:20 Phosphorus 3.6 mg/dL (2.5-4.5) 08/03/22 16:17 Magnesium 2.1 mg/dL (1.7-2.3) 08/03/22 16:17 Total Bilirubin 1.1 mg/dL (0.15-1.2) 08/03/22 16:17 AST 22 U/L (0-40) 08/03/22 16:17 ALT 21 U/L (0-41) 08/03/22 16:17 Alkaline Phosphatase 190 U/L (40-130) H 08/03/22 16:17 NT-Pro-B Natriuret Pep 56377 pg/mL (0-450) H 08/03/22 16:17 Total Protein 6.6 g/dL (6.6-8.7) 08/03/22 16:17 Albumin 3.7 g/dL (3.5-5.2) 08/03/22 16:17 Globulin 2.9 g/dL (1.3-4.6) 08/03/22 16:17 Urine Color Yellow (Yellow) 08/03/22 20:18 Urine Appearance Clear (CLEAR) 08/03/22 20:18 Urine pH 5 (5-7) 08/03/22 20:18 Ur Specific [place] 1.020 (1.005-1.030) 08/03/22 20:18 Urine Protein Neg (Negative) 08/03/22 20:18 Urine Glucose (UA) Norm (Normal) 08/03/22 20:18 Urine Ketones 1+ (Negative) H 08/03/22 20:18 Urine Blood Neg (Negative) 08/03/22 20:18 Urine Nitrate Negative (Negative) 08/03/22 20:18 Urine Bilirubin Neg (Negative) 08/03/22 20:18 Urine Urobilinogen Norm mg/dL (Negative) 08/03/22 20:18 Ur Leukocyte Esterase Negative (Negative) 08/03/22 20:18 Vitals Last Vital Signs Temp 97.6 F 08/06/22 19:24 Pulse 106 H 08/06/22 19:24 Resp 22 H 08/06/22 19:24 BP 99/65 08/06/22 19:24 Pulse Ox 94 08/06/22 19:24 O2 Del Method 08/06/22 15:45 O2 Flow Rate 3 08/06/22 15:45 Discharge Plan Discharge Patient Disposition: Home Condition: Stable Prescriptions: New levofloxacin 750 mg Tablet 750 mg PO DAILY@0600 Qty: 7 0RF Continued magnesium oxide 400 mg (241.3 mg magnesium) tablet 400 mg PO DAILY tramadol 50 mg tablet 50 mg PO BID PRN (Reason: pain) Qty: 45 0RF hydrocodone-acetaminophen 5-325 mg tablet 1 tab PO Q8H PRN (Reason: pain) 14 Days Qty: 20 0RF pentoxifylline 400 mg tablet extended release 400 mg PO TID 30 Days Qty: 90 4RF Rx Instructions: must administer with a meal/food multivitamin Tablet 1 tab PO DAILY clopidogrel 75 mg Tablet 75 mg PO DAILY Qty: 30 0RF diltiazem HCl [Cardizem CD] 120 mg capsule,extended release 24hr 120 mg PO DAILY Qty: 30 0RF folic acid 1 mg Tablet 1 mg PO DAILY ferrous gluconate 324 mg (37.5 mg iron) tablet 324 mg PO DAILY ProAir HFA 90 mcg/actuation Hfa Aerosol Inhaler 2 puff INHALATION Q6H PRN (Reason: Shortness Of Breath) imiquimod 5 % cream in packet See Rx Instructions .ROUTE .COMPLEX Rx Instructions: apply to affected area daily tuesday-tuesday (weekends off)for 6 weeks. cilostazol 50 mg tablet 50 mg PO BID Held furosemide 20 mg tablet 20 mg PO DAILY PRN (Reason: Edema) Hold Instructions: Resume on 08/09/22. potassium chloride 20 mEq Tablet Extended Release 10 meq PO DAILY PRN (Reason: when taking lasix) Hold Instructions: Resume on 08/09/22. Discontinued Flexeril 10 mg Tablet 10 mg PO TID PRN (Reason: Muscle Spasm) meloxicam 15 mg tablet 15 mg PO DAILY methocarbamol 750 mg tablet 750 mg PO TID piroxicam 20 mg capsule 20 mg PO DAILY Discharge Orders: Discharge Order (Routine); Ordered 08/07/22 Ordered By: Basim Hernandez Referrals: Kirt May DO [Physician] - 1 week Sachin Gallagher DO [Primary Care Provider] - Patient Instructions: Opioid Safety Discharge Attestations Time Spent in Discharge Care*: less than 30 min Status at Discharge: Cognitive status at discharge: cognitively intact , Behavioral status at discharge: cooperative , Quality Metrics Clinical Quality Measures [ No reported AMI, CVA or VTE this stay] Coding Level of Care Code Acute Code for Chg Fwd Diagnoses Right lower lobe pneumonia J18.9 Spinal stenosis, lumbar region, with neurogenic claudication M48.062 HTN (hypertension) I10 Chronic hyponatremia E87.1 Severe peripheral arterial disease I73.9 Intractable back pain M54.9 COPD (chronic obstructive pulmonary disease) J44.9 Nicotine dependence, chewing tobacco, with other nicotine-induced disorders F17.228 Chronic alcohol use F10.90 Slow urinary stream R39.198 GERD (gastroesophageal reflux disease) K21.9
== END 2022-08-07 08:43 | disposition home or self-care (01) | DRG 515 ==
LOC: ER 15:40 → MEDSURG 17:07
PROVIDERS: Orthopaedic Surgery; Admitting Provider Hospitalist; Emergency Provider Physician Assistant; PCP Emergency Medicine Emergency Medical Services; Visit Provider Internal Medicine
PROC: 0QS03ZZ Reposition Lumbar Vertebra, Percutaneous Approach (ICD-10-PCS; principal; 2022-08-06 08:05)
DX: M48.56XA Collapsed vertebra, not elsewhere classified, lumbar region, initial encounter for fracture (principal); J18.9 Pneumonia, unspecified organism; J44.0 Chronic obstructive pulmonary disease with (acute) lower respiratory infection; E87.1 Hypo-osmolality and hyponatremia; M48.062 Spinal stenosis, lumbar region with neurogenic claudication; I73.9 Peripheral vascular disease, unspecified; Z95.820 Peripheral vascular angioplasty status with implants and grafts; I95.81 Postprocedural hypotension; F10.10 Alcohol abuse, uncomplicated; Z87.891 Personal history of nicotine dependence; Z79.891 Long term (current) use of opiate analgesic; Z79.02 Long term (current) use of antithrombotics/antiplatelets; Z89.422 Acquired absence of other left toe(s); K59.00 Constipation, unspecified; K21.9 Gastro-esophageal reflux disease without esophagitis; Z85.828 Personal history of other malignant neoplasm of skin; R39.198 Other difficulties with micturition; R26.89 Other abnormalities of gait and mobility
CPT/HCPCS: 36415; 71045; 72020; 76000; 80048; 80053; 81003; 83735; 83880; 84100; 85014; 85018; 85025; 85610; 85730; 93005; 94640; 96372; 97161; 97166; 97530; 99285; G0378; J0171; J0610; J0690; J1100; J1170; J1650; J1885; J1940; J2270; J2405; J2704; J3010; J3490; J7030; J7120; J7613; J7626

== ENCOUNTER 2022-08-19 00:56 | Inpatient (IN) | payer OTHER, SELFPAY ==
[2022-08-19] VITALS (55 sets, daily range): BP systolic 79–130; BP diastolic 52–96; PULSE 95–148; RESP 14–38; TEMP 36.3–37; O2SAT 70–97; BMI 31.0; BMI 25.2
--- NOTE | 2022-08-19 01:03 | XRR_ITS ---
PROCEDURE INFORMATION: Exam: XR Chest Exam date and time: 08/19/2022 1:16 AM Age: 82 years old Clinical indication: Cough and shortness of breath; Prior surgery; Surgery type: Coronary stent; Patient HX: Cough with SOB. Copd. TECHNIQUE: Imaging protocol: Radiologic exam of the chest. Views: 1 view. COMPARISON: CR XR chest 1V portable [id number] 08/03/2022 3:58 PM FINDINGS: Lungs: [id number] COPD. Hazy lung base infiltrates and effusions have increased. Pleural spaces: No pneumothorax. Heart/Mediastinum: The heart remains enlarged. Vasculature: Advanced diffuse vascular calcification noted. Bones/joints: Unremarkable. XR/XR chest 1V portable [id number] IMPRESSION: Increasing areas of bibasilar atelectasis, edema, or pneumonia with pleural effusions.
--- NOTE | 2022-08-19 01:10 | ECG_ITS ---
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 Measurements Intervals [place] Rate: 143 P: 0 HI: 0 QRS: 8 QRSD: 105 T: 94 QT: 333 QTc: 515 Interpretive Statements ATRIAL FIBRILLATION WITH RAPID VENTRICULAR RESPONSE WITH ABERRANT CONDUCTION OR VENTRICULAR PREMATURE COMPLEXES ABNORMAL QRS-T ANGLE [QRS-T AXIS DIFFERENCE > 60] Compared to ECG 08/03/2022 15:58:05 Aberrant conduction of supraventricular beat(s) now present Sinus tachycardia no longer present T-wave abnormality no longer present Electronically Signed On 08-19-2022 7:42:12 CDT by Rober Marx M.D. [id number]
--- NOTE | 2022-08-19 01:18 | W.ED.SOB ---
HPI - SOB/Dyspnea General: Chief Complaint: Shortness of Breath/Dyspnea Stated Complaint: RESP. DISTRESS Time Seen by Provider: 08/19/22 00:57 Source: patient and EMS Mode of arrival: EMS Limitations: no limitations History of Present Illness: HPI Narrative: 82-year-old male who is here from [facility] he had recently been admitted here after a fall and spinal fracture he did develop a pneumonia there over the last 2 days he had increasing cough and shortness of breath he was requiring up to 4 L oxygen there he is hypoxic here as well he has no history of A-fib but appears to be in A-fib with RVR with heart rate in the 140s here he did receive albuterol in route. He denies any pain he has had a productive cough along with the dyspnea and no known fevers. Associated symptoms: Deny abdominal pain, chest pain, fever(s), nausea or vomiting Review of Systems Const: Denies: fever(s), chills, body aches or change in appetite Eyes: Denies: blurry vision or eye discomfort ENMT: Denies: throat pain or dental pain Card: Denies: chest pain Resp: Reports: dyspnea and non-productive cough GI: Denies: abdominal pain, nausea, vomiting or diarrhea : Denies: dysuria Musc: Denies: neck pain or back pain Skin/Breast: Denies: rash Neuro: Denies: headache(s) Psych: Denies: depression Brien/Lymph: Denies: easy bruising All/Imm: Denies: urticaria PFSH ED PFSH: Medical History Amputated toe of left foot discharged from wound care 07/05/22, follows with Dr Brunner Chronic alcohol use Chronic hyponatremia Claudication Compression fx, lumbar spine COPD (chronic obstructive pulmonary disease) Gait instability GERD (gastroesophageal reflux disease) History of nonmelanoma skin cancer History of smoking HTN (hypertension) Intractable back pain 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 Myalgia, multiple sites Nicotine dependence, chewing tobacco, with other nicotine-induced disorders Nodular basal cell carcinoma tip of nose, initial treatment with imiquimod, follows with Dr Gil PAC (premature atrial contraction) Right lower lobe pneumonia Severe peripheral arterial disease Slow urinary stream Spinal stenosis, lumbar region, with neurogenic claudication Surgical History 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 8.0 x 19 mm Omnilink stent was placed. Left Proximal Superficial Femoral Artery with 80-90 % stenosis treated with AB ARMADA 35 OTW [id number]. Family History Other No pertinent family history Social History Smoking and tobacco status: current every day smoker smokeless tobacco Smokeless tobacco details: chewless pouches now, former chewing tobacco, former cigarette smoker Alcohol intake: current Alcohol type: hard liquor Lives independently: Yes Household members: none Housing: House Physical Exam Const: COMMON NORMALS: patient oriented x3 GENERAL APPEARANCE: ill appearing HENMT: COMMON NORMALS: normocephalic and atraumatic HEAD & SCALP: normocephalic and atraumatic Eye: COMMON NORMALS: Equal, round and reactive pupils present and EOMs intact bilaterally PUPIL: Yes Equal, round and reactive pupils present Neck/C-Spine: COMMON NORMALS: full ROM and supple Chest: COMMONS NORMALS: normal inspection of the chest and normal palpation of entire chest wall Resp: COMMON NORMALS: No retractions EFFORT & INSPECTION: Yes tachypneic and Yes respiratory distress AUSCULTATION: rales Cardio: COMMON NORMALS: No murmurs present (Cardio) RATE: tachycardic RHYTHM: abnormal rhythm irregularly irregular GI: COMMON NORMALS: Normal to inspection, nondistended, normoactive bowel sounds present, Soft to palpation, non-tender and no masses PALPATION: Yes Soft to palpation Extremity: COMMON NORMALS: normal to inspection and full ROM Neuro: COMMON NORMALS: patient oriented x3, moves all extremities and no focal motor deficits Psych: COMMON NORMALS: mental status grossly normal, Normal thought process present and cooperative THOUGHT PROCESS: Normal thought process present Skin: COMMON NORMALS: no rashes or lesions noted and no wounds GENERAL SKIN EXAM: no rashes or lesions noted Course Vital Signs: Vital signs: Vital Signs Temperature 98.6 F 08/19/22 01:05 Pulse Rate 142 H 08/19/22 01:05 Respiratory Rate 30 H 08/19/22 01:05 Blood Pressure 99/69 08/19/22 01:05 Pulse Oximetry 91 08/19/22 01:05 Oxygen Delivery Me thod 08/19/22 01:05 MDM - SOB/Dyspnea Medical Decision Making Patient presents here with shortness of breath he does have elevated BNP with CHF versus pneumonia he also has A-fib with RVR patient was started on Cardizem drip. His heart rate has improved I spoke to the hospitalist and will admit to cardiac stepdown. Lab Data 08/19/22 01:53 08/19/22 01:53 Labs/Radiology: Laboratory Results WBC 9.2 10^3/uL (4.0-10.0) 08/19/22 01:53 RBC 4.52 10^6/uL (4.1-5.3) 08/19/22 01:53 Hgb 14.3 g/dL (11.7-16.6) 08/19/22 01:53 Hct 42.8 % (42.0-52.0) 08/19/22 01:53 MCV 94.7 fl (80-94) H 08/19/22 01:53 MCH 31.6 pg (28.0-34.0) 08/19/22 01:53 MCHC 33.4 g/dL (30.0-36.0) 08/19/22 01:53 RDW 13.9 % (12.1-15.1) 08/19/22 01:53 Plt Count 497 10^3/cmm (130-400) H 08/19/22 01:53 MPV 9.1 fL (7.4-10.4) 08/19/22 01:53 Neut % (Auto) 70.4 % 08/19/22 01:53 Lymph % (Auto) 19.0 % 08/19/22 01:53 [place] % (Auto) 8.5 % 08/19/22 01:53 Eos % (Auto) 1.0 % 08/19/22 01:53 Baso % (Auto) 0.4 % 08/19/22 01:53 Neut # (Auto) 6.49 10^3/uL (1.8-7.7) 08/19/22 01:53 Lymph # (Auto) 1.8 10^3/uL (0.8-4.8) 08/19/22 01:53 [place] # (Auto) 0.8 10^3/uL (0.2-0.9) 08/19/22 01:53 Eos # (Auto) 0.1 10^3/uL (0.0-0.8) 08/19/22 01:53 Baso # (Auto) 0.0 10^3/uL (0.0-0.1) 08/19/22 01:53 Nucleated RBC % (auto) 0 % 08/19/22 01:53 Nucleated RBCs # 0.0 /100WBC 08/19/22 01:53 PT 14.20 SECONDS (12.1-14.9) 08/19/22 02:40 INR 1.07 (0.8-1.2) 08/19/22 02:40 Specimen Type Arterial 08/19/22 02:50 Sample Site Radial, right 08/19/22 02:50 ABG pH 7.48 (7.35-7.45) H 08/19/22 02:50 ABG pCO2 30.0 mmHg (35-45) L 08/19/22 02:50 ABG pO2 56.8 mmHg (80.0-100.0) L 08/19/22 02:50 ABG HCO3 22.5 mmol/L (22-26) 08/19/22 02:50 ABG Base Excess 0.0 mmol/L (-2.0-2.0) 08/19/22 02:50 Ramon Test Pos 08/19/22 02:50 Hematocrit 40.5 % (42-52) L 08/19/22 02:50 Hgb O2 Saturation 89.7 % (95-100) L 08/19/22 02:50 Carboxyhemoglobin 1.5 %THgb (0.4-20.1) 08/19/22 02:50 Methemoglobin 0.6 % (0.4-1.5) 08/19/22 02:50 Total Hemoglobin 13.2 g/dL (14-18) L 08/19/22 02:50 O2 Delivery Device Nc 08/19/22 02:50 O2 Liters/Min 2.0 % 08/19/22 02:50 Coronary Care Unit Nurse ID [id number] 08/19/22 02:50 Sodium 136 mmol/L (136-145) 08/19/22 01:53 Potassium 3.7 mmol/L (3.5-5.1) 08/19/22 01:53 Chloride 99 mmol/L (98-107) 08/19/22 01:53 Carbon Dioxide 24 mmol/L (22-29) 08/19/22 01:53 Anion Gap 16.7 (5-19) 08/19/22 01:53 BUN 9 mg/dL (8-23) 08/19/22 01:53 Creatinine 1.0 mg/dL (0.7-1.2) 08/19/22 01:53 GFR Calculation Not Reportable 08/19/22 01:53 Glucose 111 mg/dL (65-115) 08/19/22 01:53 Calculated Osmolality 281 mOsm/kg (285-295) L 08/19/22 01:53 Lactic Acid 1.8 mmol/L (0.5-2.2) 08/19/22 01:40 Calcium 9.1 mg/dL (8.5-10.5) 08/19/22 01:53 Total Bilirubin 0.7 mg/dL (0.15-1.2) 08/19/22 01:53 AST 20 U/L (0-40) 08/19/22 01:53 ALT 13 U/L (0-41) 08/19/22 01:53 Alkaline Phosphatase 208 U/L (40-130) H 08/19/22 01:53 NT-Pro-B Natriuret Pep 04228 pg/mL (0-450) H 08/19/22 01:53 Total Protein 6.5 g/dL (6.6-8.7) L 08/19/22 01:53 Albumin 3.4 g/dL (3.5-5.2) L 08/19/22 01:53 Globulin 3.1 g/dL (1.3-4.6) 08/19/22 01:53 Influenza Type A Ag Negative (Negative) 08/19/22 01:16 Influenza Type B Ag Negative (Negative) 08/19/22 01:16 SARS-CoV-2 Ag (Rapid) negative (Negative) 08/19/22 01:16 EKG Data EKG 1: I personally reviewed and interpreted this EKG as follows: EKG Interpretation Date: 08/19/22 EKG interpretation time: 01:10 Interpretation: afib with rvr hr [address] or t wave abnormalities qrs 105 qtc 416 Critical Care Time Critical Care Time: Critical Care Time: Yes Total Critical Care Time: 45 Attestation: The high probability of a clinically significant, sudden or life threatening deterioration of the patient's cv/resp system(s) required my full and direct attention, intervention and personal management. The critical care time is as shown. This time is in addition to time spent performing any reported procedures but includes the following: [x] Data and vital sign review and interpretation [x] Patient assessment, examination and intervention [x] Documentation [x] Medication orders and management Discharge Plan Discharge Patient Disposition: Admitted As Inpatient Admit Provider: Olman Montes Clinical Impression: Congestive heart failure, Community acquired pneumonia, Atrial fibrillation with RVR Condition: Stable Coding Level of Care Code ED Sustainability Purchasing Agent for Jorge Betancourt
[2022-08-19] MEDS: sodium chloride 0.9% 1,000 ML 999 ML IV (01:52)
[2022-08-19 02:03] LABS: SARS Covid-2 Antigen negative (Negative)
[2022-08-19 02:03] LABS: Basophils % 0.4 %; Eosinophils # 0.1 10^3/uL (0.0-0.8); Hematocrit 42.8 % (42.0-52.0); Hemoglobin 14.3 g/dL (11.7-16.6); Lymphocytes # 1.8 10^3/uL (0.8-4.8); Mean Corpuscular HGB Conc 33.4 g/dL (30.0-36.0); Mean Corpuscular Hemoglobin 31.6 pg (28.0-34.0); Mean Corpuscular Volume 94.7 fl (80-94); Mean Platelet Volume 9.1 fL (7.4-10.4); Monocytes # 0.8 10^3/uL (0.2-0.9); Monocytes % 8.5 %; Neutrophils # 6.49 10^3/uL (1.8-7.7); Neutrophils % 70.4 %; Nucleated Red Blood Cells % 0 %; Platelet Count 497 10^3/cmm (130-400); Red Blood Count 4.52 10^6/uL (4.1-5.3); Red Cell Distribution Width 13.9 % (12.1-15.1); White Blood Count 9.2 10^3/uL (4.0-10.0)
[2022-08-19 02:13] LABS: Lactic Sepsis W/Reflex 1.8 mmol/L (0.5-2.2)
[2022-08-19] MEDS: cefTRIAXone 1,000 MG in sodium chloride 0.9% (plus) 50 ML 100 MG IV (02:14)
[2022-08-19] MEDS: azithromycin 500 MG in sodium chloride 0.9% 250 ML 250 MG IV (02:17)
[2022-08-19] MEDS: dilTIAZem 100 MG in sodium chloride 0.9% (add-van) 100 ML IV (02:29)
[2022-08-19 02:31] LABS: Influenza A by IFA Negative (Negative); Influenza B by IFA Negative (Negative)
[2022-08-19 02:49] LABS: Alanine Aminotransferase 13 U/L (0-41); Albumin Level 3.4 g/dL (3.5-5.2); Alkaline Phosphatase 208 U/L (40-130); Anion Gap 16.7 (5-19); Aspartate Amino Transferase 20 U/L (0-40); Blood Urea Nitrogen 9 mg/dL (8-23); Calcium 9.1 mg/dL (8.5-10.5); Carbon Dioxide 24 mmol/L (22-29); Chloride 99 mmol/L (98-107); Creatinine Clr Calc Pharmacy 67.1013; Globulin 3.1 g/dL (1.3-4.6); Glucose 111 mg/dL (65-115); NT Pro B Type Natriuretic Pept 16521 pg/mL (0-450); Osmolality Calculated 281 mOsm/kg (285-295); Potassium 3.7 mmol/L (3.5-5.1); Sodium 136 mmol/L (136-145); Total Bilirubin 0.7 mg/dL (0.15-1.2); Total Protein 6.5 g/dL (6.6-8.7)
[2022-08-19 02:57] LABS: ABG PH Result 7.48 (7.35-7.45); Arterial Blood Gas Hematocrit 40.5 % (42-52); Blood Gas Allen Test Pos; Blood Gas Sample Site Radial, right; Blood Gas Sample Type Arterial; Carboxyhemoglobin 1.5 %THgb (0.4-20.1); HCO3 ABG 22.5 mmol/L (22-26); HGB O2 Sat 89.7 % (95-100); Methemoglobin 0.6 % (0.4-1.5); PO2 ABG 56.8 mmHg (80.0-100.0); Total Hemoglobin 13.2 g/dL (14-18)
[2022-08-19 02:58] LABS: INR 1.07 (0.8-1.2)
[2022-08-19 02:58] LABS: Oxygen Device NC
[2022-08-19] MEDS: dilTIAZem 5 mg/mL SDV 5 mL 10 MG IVP (02:58)
--- NOTE | 2022-08-19 03:01 | CTR_ITS ---
PROCEDURE INFORMATION: Exam: CTA Chest With Contrast Exam date and time: 08/19/2022 4:20 AM Age: 82 years old Clinical indication: Shortness of breath; Prior surgery; Surgery type: Coronary stent. Kyphoplasty; Patient HX: SOB with hypoxia. History of copd and chf. TECHNIQUE: Imaging protocol: Computed tomographic angiography of the chest with contrast. 3D rendering (Not supervised by radiologist): MIP and/or 3D reconstructed images were created by the technologist. Radiation optimization: All CT scans at this facility use at least one of these dose optimization techniques: automated exposure control; mA and/or kV adjustment per patient size (includes targeted exams where dose is matched to clinical indication); or iterative reconstruction. Contrast material: OMNI 350; Contrast volume: 100 ml; Contrast route: INTRAVENOUS (IV); REPORTING DATA: Count of CT and Cardiac NM exams in prior 12 months: This patient has received 3 known CTs and 0 known cardiac nuclear medicine studies in the 12 months prior to the current study. COMPARISON: CT angio chest PE protcl [id number] 12/22/2021 1:27 PM RADIATION DOSE METRICS: Total DLP (mGy-cm): 468.75 FINDINGS: Pulmonary arteries: No definite or occlusive PE. There is some truncated opacification in the peripheral diffuse bilateral pulmonary arteries. No actual intraluminal filling defect noted. Aorta: Unremarkable. No aortic aneurysm. No aortic dissection. Veins: Mild venous congestion. Lungs: Large right and small to moderate-sized left effusions with extensive areas of bilateral mid to lower lung patchy pneumonia. Moderate upper lung COPD with emphysema. Diffuse upper lung alveolar and interstitial probable edema or pneumonitis. No dominant lung mass. Pleural spaces: No pneumothorax. Heart: The heart is quite large. No definite pericardial effusion. There is reflux of contrast into the IVC, which suggests right heart failure. Lymph nodes: Mild likely reactive mediastinal and bilateral hilar lymphadenopathy. Liver: Partially assessed very large liver. Bones/joints: Moderate spine DJD. Lower thoracic/upper lumbar kyphoplasties with old compressions. Diffuse osteopenia. Soft tissues: Unremarkable. Other findings: Advanced diffuse vascular calcification noted. CT/CT angio chest PE protcl [id number] IMPRESSION: 1. No definite PE. 2. Large right and small to moderate size left effusions areas of bilateral mid to lower lung atelectasis or developing pneumonia. These findings are markedly progressive from 12/22/2021. 3. Underlying mild CHF as well. 4. Numerous other findings above. Advise appropriate close follow-up. Consider need for right thoracentesis.
[2022-08-19] MEDS: ondansetron 2 mg/ML SDV 2 mL 4 MG IVP (03:22)
[2022-08-19] MEDS: FUROsemide 10 mg/mL SDV 10mL 60 MG IVP (03:22)
[2022-08-19 04:20] LABS: Troponin(5th) Baseline 60 ng/L (0-15)
[2022-08-19] MEDS: iohexol 350 mg/mL 500 mL Btl (per mL) IV (04:27)
--- NOTE | 2022-08-19 04:44 | P.HP_ITS ---
Providers/Chief Complaint Admitting Physician: Olman Montes Primary Care Provider: Sachin Gallagher DO Chief Complaint: RESP. DISTRESS History of Present Illness Pleasant 82-year-old gentleman with recently admitted and treated due to compression fractures, intractable back pain, underwent kyphoplasty, during admission was noted to have thick secretions by anesthesia, chest x-ray with some suggestion of pneumonia, was started on Levaquin. Was brought here from [facility] due to cough, productive sputum, he states that he could not produce sputum, shortness of breath, reported new oxygen requirement 4 L. Findings suspicious for bilateral lower lung pneumonia on preliminary imaging, pending read. Here on presentation also noted in A-fib with RVR, heart rates in 140s. Denies chest pain or pressure. He is not sure whether he has been taking the prescribed Levaquin. In ER he received ceftriaxone and azithromycin. A dose of Lasix with initial concern for also CHF. Additionally initially started on Cardizem drip to help control heart rate, with mild improvement in heart rates, but with decrease in blood pressure could not tolerate further increase in rate and amiodarone was added. Review of Systems Const: Denies: fever(s) ENMT: Denies: throat pain or ear or mastoid pain Card: Denies: chest pain, edema, pre-syncope or dyspnea on exertion Resp: Denies: dyspnea, productive cough, change in phlegm color or hemoptysis GI: Denies: abdominal pain, nausea, vomiting, diarrhea, constipation, hematochezia or melena : Denies: flank pain, difficulty urinating, urinary frequency or hematuria Musc: Denies: back pain, joint swelling or joint redness Skin/Breast: Denies: rash or new lesions Neuro: Denies: headache(s) or dizziness Medications/Allergies Home Medications Medication Instructions Recorded Confirmed Last Taken Type multivitamin 1 tab PO DAILY 01/21/22 08/07/22 01/27/22 07:00 History clopidogrel 75 mg tablet 75 mg PO DAILY #30 tabs 01/23/22 08/07/22 01/26/22 Rx diltiazem HCl 120 mg 120 mg PO DAILY #30 caps 01/23/22 08/07/22 01/27/22 07:00 Rx capsule,extended release 24 hr (Cardizem CD) furosemide 20 mg tablet 20 mg PO DAILY PRN Edema 03/30/22 08/07/22 Unknown History magnesium oxide 400 mg (241.3 mg 400 mg PO DAILY 03/30/22 08/07/22 Unknown History magnesium) tablet pentoxifylline 400 mg 400 mg PO TID 30 days #90 tabs 04/12/22 08/07/22 Unknown Rx tablet,extended release tramadol 50 mg tablet 50 mg PO BID PRN pain #45 tabs 07/21/22 08/07/22 Unknown Rx hydrocodone 5 mg-acetaminophen 325 1 tab PO Q8H PRN pain 2 weeks #20 07/29/22 08/07/22 Unknown Rx mg tablet tabs albuterol sulfate 90 mcg/actuation 2 puff inhalation Q6H PRN 08/03/22 08/07/22 Unknown History aerosol inhaler (ProAir HFA) Shortness Of Breath ferrous gluconate 324 mg (37.5 mg 324 mg PO DAILY 08/03/22 08/07/22 Unknown History iron) tablet folic acid 1 mg tablet 1 mg PO DAILY 08/03/22 08/07/22 Unknown History imiquimod 5 % topical cream packet See Rx Instructions .Route .COMPLEX 08/03/22 08/07/22 Unknown History potassium chloride 20 mEq 10 meq PO DAILY PRN when taking 08/03/22 08/07/22 Unknown History tablet,extended release lasix cilostazol 50 mg tablet 50 mg PO BID 08/04/22 08/07/22 Unknown History levofloxacin 750 mg tablet 750 mg PO DAILY@0600 #7 tabs 08/06/22 08/07/22 Unknow n Rx Allergies Allergy/AdvReac Type Severity Reaction Status Date / Time No Known Allergies Allergy Verified 08/19/22 01:07 PFSH Acute PFSH: Medical History (Updated 08/19/22 @ 05:13 by Olman Montes MD) Amputated toe of left foot discharged from wound care 07/05/22, follows with Dr Brunner Chronic alcohol use Chronic hyponatremia Claudication Compression fx, lumbar spine COPD (chronic obstructive pulmonary disease) Gait instability GERD (gastroesophageal reflux disease) History of nonmelanoma skin cancer History of smoking HTN (hypertension) Intractable back pain 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 Myalgia, multiple sites Nicotine dependence, chewing tobacco, with other nicotine-induced disorders Nodular basal cell carcinoma tip of nose, initial treatment with imiquimod, follows with Dr Gil PAC (premature atrial contraction) Right lower lobe pneumonia Severe peripheral arterial disease Slow urinary stream Spinal stenosis, lumbar region, with neurogenic claudication Surgical History 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 History of hip surgery right hip fracture repair S/P peripheral artery angioplasty with stent placement 12/2021 Left common/External Iliac Artery with 80% stenosis treated with AB ARMADA 35OTW [id number]. 8.0 x 19 mm Omnilink stent was placed. Left Proximal Superficial Femoral Artery with 80-90 % stenosis treated with AB ARMADA 35 O TW [id number]. Family History Other No pertinent family history Social History Smoking and tobacco status: current every day smoker smokeless tobacco Sm okeless tobacco details: chewless pouches now, former chewing tobacco, former cigarette smoker Alcohol intake: current Alcohol type: hard liquor Lives independently: Yes Household members: none Housing: House Vitals/I&O/Wt Last Vital Signs Temp 98.6 F 08/19/22 01:05 Pulse 142 H 08/19/22 01:05 Resp 30 H 08/19/22 01:05 BP 99/69 08/19/22 01:05 Pulse Ox 91 08/19/22 01:05 O2 Del Method 08/19/22 01:05 08/18/22 08/18/22 08/19/22 14:59 22:59 06:59 Intake Total 1303.833 / 1303.833 Balance 1303.833 / 1303.833 Weight last 48 hrs Weight 95.254 kg Physical Exam Const: COMMON NORMALS: patient oriented x3 and alert GENERAL APPEARANCE: cooperative ORIENTATION/CONSCIOUSNESS: Yes awake HENMT: COMMON NORMALS: oropharynx normal Neck/C-Spine: COMMON NORMALS: no JVD Resp: AUSCULTATION: diminished lung sounds bilateral in the lower lung pitts Cardio: COMMON NORMALS: no JVD, regular rhythm, S1 normal heart sound present, S2 normal heart sound present and No murmurs present (Cardio) RATE: tachycardic RHYTHM: regular rhythm HEART SOUNDS: S1 normal heart sound present and S2 normal heart sound present GI: COMMON NORMALS: Normal to inspection, nondistended, normoactive bowel sounds present, Soft to palpation and non-tender PALPATION: Yes Soft to palpation Extremity: COMMON NORMALS: no joint enlargement and no pedal edema Neuro: COMMON NORMALS: patient oriented x3 and moves all extremities SENSORIUM/ORIENTATION: Yes alert Skin: COMMON NORMALS: no rashes or lesions noted GENERAL SKIN EXAM: no rashes or lesions noted Data 08/19/22 01:53 08/19/22 01:53 Micro: Microbiology 08/19/22 01:53 Blood Culture - Preliminary Blood SPECIMEN COLLECTED 08/19/22 01:40 Blood Culture - Preliminary Blood SPECIMEN COLLECTED A&P Assessment and plan (1) Community acquired pneumonia: Seems unimproved despite Levaquin. Recent hospitalization, with possible HAP, for now we will broaden antibiotics with Cefepime and vancomycin. Collect MRSA PCR. I do not see sputum culture from prior admission, will request. Urine bacterial antigens. Oxygen support, was requiring 4 L nasal cannula oxygen. Wean down as tolerating. Flutter valve. Mucinex. Chest x-ray appreciated, my interpretation with bilateral lower lung opacification, possible small effusions. Official read pending. CTA has been obtained as well, pending. (2) Atrial fibrillation with RVR: Did not respond well to Cardizem drip, blood pressure decreasing, starting on amiodarone drip. We will give a dose of digoxin 0.25 mg IV push. We will give potassium, check magnesium. Complete troponin and EKG series to assess for ischemia. He is chest pain free. Clear troponin with moderate elevation at 60, suspect likely secondary to tachycardia, but at some point may benefit from further risk stratification/stress testing once out of acute condition. No past history of atrial fibrillation. At risk of CVA, [id number], he is agreeable to initiation of anticoagulation, will start with Lovenox for now. Also at risk of PE with recent hospitalization, severe back pain, underwent CTA, results pending. (3) COPD (chronic obstructive pulmonary disease): COPD with severe exacerbation, with cough, lots of purulent secretions, dyspnea, hypoxia. Antibiotics as above. Recent comp patient for chest, kyphoplasty. For now we will start on short course of prednisone 20 mg daily for 5 days, discontinue sooner if improves if lack of improvement may need to have IV steroids. (4) Goals of care, counseling/discussion: He would be okay with receiving cardiopulmonary resuscitation in case of arrest. In case he could not make his own decisions names his cousin Irina Sanon as surrogate decision-maker. Plan Initial concern for congestive heart failure, received a dose of Lasix, continue for now does not look fluid overloaded, will hold off further Lasix for now. Reassess for need to resume diuretic. Recent hospitalization with compression fractures, underwent kyphoplasty due to intractable pain. Consider follow-up assessment and treatment for osteoporosis. PAD: Continue Plavix Overuse of EtOH: Daily about 4 drinks of whiskey. Denies prior withdrawal. HTN history, currently hypotensive GERD Chewing tobacco use Spinal stenosis with neurogenic claudication Other medical problems Discussed with ER physician, reviewed ER documentation. Requesting medications to be confirmed, please reconcile once available. Attestations Medical Necessity Statement*: Admission of over 2 midnights anticipated for assessment management of difficult to control A-fib with RVR, requires close mon itoring with treatment due to intolerance to treatment with Cardizem drip with hypotension, pneumonia, possible hospital-acquired pneumonia, severe COPD exacerbation. Diagnoses Community acquired pneumonia J18.9 Atrial fibrillation with RVR I48.91 COPD (chronic obstructive pulmonary disease) J44.9 Goals of care, counseling/discussion Z71.89
--- NOTE | 2022-08-19 05:16 | PC.PHAR ---
Pharmacokinetic dosing service Date: 08/19/22 Time: 515 Objective: Patient: Reginald Pelaez Floor: ICU-6 Age: 82 yo Serum creatinine: 1.0 mg/dL Height: 69.0 Inches Weight (kg): 95.254 Diagnosis: Relevant medical/social history: Cultures and sensitivities: Other labs: Assessment: IBW (kg): 70.70 Dosing wt(kg): 95.254 Estimated Creatinine clearance (ml/min): 58.9 CRCL method: Cockcroft and Gault using ibw(default). Drug selected: Vancomycin Loading dose (mg): 0 Vd (liters): 85.7 (factor used: 0.9 L/kg) Humberto (hr-1): 0.053 Half life (hrs): 13.08 Recommended dose: 1500 mg Interval: 18 hrs Infusion time (hrs): 1.5 Predicted peak (mcg/mL): 27.4 Predicted trough (mcg/mL): 11.43 Total body weight is being used for vancomycin dosing. Renal function is stable [ ] /unstable [ ] Recommendations: Give Vancomycin 1500 mg q 18 hrs with an expected Cpeak of 27.4 mcg/ml and an expected Ctrough of 11.43 mcg/ml Renal dosing of other antibiotics (review renal dosing of other medications and list guidelines here): Thank you for the consult, will continue to follow. Signature: Evelyn Zuniga
--- NOTE | 2022-08-19 05:39 | ECG_ITS ---
[facility] Test Date: 2022-08-19 Pat Name: Reginald Pelaez Department: Room: [facility] Gender: Male Tabber: : 1940 Requested By: Dominic Ramsey Order Number: [id number] Marcella MD: Antonio Apodaca M.D. Measurements Intervals [place] Rate: 124 P: 0 RI: 0 QRS: 4 QRSD: 104 T: 0 QT: 344 QTc: 494 Interpretive Statements ATRIAL FIBRILLATION WITH RAPID VENTRICULAR RESPONSE WITH ABERRANT CONDUCTION OR VENTRICULAR PREMATURE COMPLEXES NONSPECIFIC ST ELEVATION [0.05+ mV ST ELEVATION] ABNORMAL RHYTHM ECG Compared to ECG 08/19/2022 01:10:21 ST (T wave) deviation now present Electronically Signed On 08-20-2022 23:06:48 CDT by Antonio Apodaca M.D. [id number]
[2022-08-19] MEDS: potassium chloride ER 20 mEq Tablet PO (05:45)
[2022-08-19] MEDS: cefepime 1,000 MG in sodium chloride 0.9% (plus) 50 ML 100 MG IV ×2 (05:45→16:02)
[2022-08-19] MEDS: enoxaparin 100 mg/mL Syringe SUBCUT (05:45)
[2022-08-19] MEDS: pantoprazole 40 mg SDV IVP (05:45)
[2022-08-19] MEDS: digoxin 250 mcg/ml INJ 2 mL IVP (05:46)
[2022-08-19] MEDS: vancomycin 1,500 MG/300 ML PIGGYBACK 200 MG IV ×2 (06:19→23:40)
[2022-08-19 07:03] LABS: Troponin 5 2HR 58.04 ng/L (0-15)
[2022-08-19 07:07] LABS: Troponin 5 2HR Delta -1.96 ABS# (0-10)
[2022-08-19 07:08] LABS: Magnesium 2.1 mg/dL (1.7-2.3)
--- NOTE | 2022-08-19 07:12 | USCV_ITS ---
Pelaez Reginald Age: 82 Gender: M : 1940 Exam Date: 08/19/2022 08:27 Ordering Phys: Syed Loaiza MD Technologist: Ryan Biswas [place] [facility] [place]: cardiomyopathy BP: 114 / 61 HR: 95 Rhythm: Sinus Technical Quality: Adequate MEASUREMENTS (Male / Female) Normal Values 2D ECHO LV Diastolic Diameter PLAX 6.4 cm 4.2 - 5.9 / 3.9 - 5.3 cm LV Systolic Diameter PLAX 5.9 cm IVS Diastolic Thickness 1.1 cm 0.6 - 1.0 / 0.6 - 0.9 cm IVS Systolic Thickness 1.3 cm LVPW Diastolic Thickness 1.0 cm 0.6 - 1.0 / 0.6 - 0.9 cm LVPW Systolic Thickness 1.1 cm LVOT Diameter 2.0 cm LV Ejection Fraction 2D Teich 14.7 % LV Ejection Fraction MOD 2C 17.0 % LV Ejection Fraction 2C AL 16.2 % LA Diameter 4.3 cm IVC Diameter 2.9 cm M-MODE Aortic Annulus Diameter 3.4 cm LA Ao Ratio MM 1.3 MV E Point Septal Separation 1.8 cm DOPPLER AV Peak Velocity 130.0 cm/s LVOT Peak Velocity 64.0 cm/s AV Area Cont Eq vti 1.1 cm squared AV Area Cont Eq pk 1.6 cm squared TR Peak Velocity 218.3 cm/s TR Peak Gradient 19.1 mmHg TV Peak E Velocity 76.0 cm/s Right Atrial Pressure 3.0 mmHg Pulmonary Artery Systolic Pressu 22.1 mmHg FINDINGS Left Ventricle Severe diffuse hypokinesia of the left ventricle with an ejection fraction of around 15%. Moderately dilated LV cavity. Right Ventricle Mildly increased right ventricular size. Mildly decreased right ventricular systolic function. Right Atrium Mildly increased right atrial size. Left Atrium Mildly increased left atrial size. Mitral Valve Thickened mitral valve. Moderate mitral annular calcification. Mild-moderate mitral valve regurgitation. Aortic Valve Thickened aortic valve. Tricuspid Valve Trace tricuspid valve regurgitation. Pulmonic Valve Mild pulmonary valve regurgitation. Pericardium No pericardial effusion. Aorta Normal aortic annulus size. IVC Dilated IVC with decreased respiratory variation. CONCLUSIONS Severe diffuse hypokinesia of the left ventricle with an ejection fraction of around 15%. Moderately dilated LV cavity. Mildly increased right ventricular size. Mildly decreased right ventricular systolic function. Mild biatrial enlargement. Thickened aortic valve. Thickened mitral valve. Moderate mitral annular calcification. Mild-moderate mitral valve regurgitation. Trace tricuspid valve regurgitation. Estimated pulmonary artery peak systolic pressure 22 mmHg Compared to the study from 01/21/2022, there is significant worsening of the LV systolic function-from 55% to 15% Dr Antonio Apodaca MD [facility] (Electronically Signed) Final Date: 19 August 2022 17:31 S
--- NOTE | 2022-08-19 07:19 | W.PM.EVENTAC ---
Event Note Event Note: History and physical reviewed, patient examined. Admitted with concern of pneumonia, possibly hospital-acquired and placed on broad-spectrum antibiotics. CTA demonstrates bilateral pleural effusions right greater than left. Appears clinically stable right now but may need thoracentesis at least on the right side. As he just received a therapeutic dose of Lovenox 2 hours ago as long as he remains clinically stable this might best be delayed until tomorrow. Heart rate is currently stable on amiodarone drip. Will obtain echocardiogram. We will also obtain speech therapy consultation secondary to debility, shortness of breath, risk for aspiration.
--- NOTE | 2022-08-19 07:56 | PC.PHAR ---
Addendum entered by Janelle Martinez 08/19/22 08:44: deepthi nurse from [facility] states the pt finished the levaquin 750mg-deepthi also states the pts diltiazem 120mg is er- Original Note: [place] [facility] [place] [phone]-[facility] ric benjamin and tar
[2022-08-19] MEDS: ipratropium-albuterol 3 mL Neb INHALATION ×3 (08:53→20:50)
[2022-08-19] MEDS: budesonide 0.5 mg/2 mL Neb INHALATION ×2 (08:53→20:51)
[2022-08-19] MEDS: clopidogrel 75 mg Tablet PO (09:14)
[2022-08-19] MEDS: predniSONE 20 mg Tablet PO (09:14)
--- NOTE | 2022-08-19 09:36 | ECG_ITS ---
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 Measurements Intervals [place] Rate: 99 P: 0 AR: 0 QRS: 32 QRSD: 104 T: 120 QT: 397 QTc: 510 Interpretive Statements ATRIAL FIBRILLATION WITH ABERRANT CONDUCTION OR VENTRICULAR PREMATURE COMPLEXES LOW QRS VOLTAGE IN EXTREMITY LEADS [QRS DEFLECTION < 0.5 mV IN LIMB LEADS] NONSPECIFIC ST ELEVATION [0.05+ mV ST ELEVATION] ABNORMAL QRS-T ANGLE [QRS-T AXIS DIFFERENCE > 60] INTERPRETATION BASED ON A DEFAULT AGE OF 40 YEARS Compared to ECG 08/19/2022 05:39:29 Low QRS voltage now present ST (T wave) deviation still present Electronically Signed On 08-20-2022 23:07:32 CDT by Antonio Apodaca M.D. [id number]
[2022-08-19 14:53] LABS: Procalcitonin 0.07 ng/mL (0-0.5)
[2022-08-19] MEDS: FUROsemide 10 mg/mL SDV 4mL 40 MG IVP (16:02)
[2022-08-19] MEDS: enoxaparin 80 mg/0.8 mL Syringe SUBCUT (17:08)
--- NOTE | 2022-08-19 21:21 | PM.CONSULT ---
Providers/Reason For Consult Consulting Physician/Specialty*: DERRICK Apodaca MD/cardiology Reason for Consult*: Patient with severe LV dysfunction, congestive heart failure atrial fibrillation rapid ventricular rate Attending Physician: Syed Loaiza MD Primary Care Provider: Sachin Gallagher DO History of Present Illness History of Present Illness Reginald Pelaez is a 82 year old male, he is admitted to the hospital from the senior care with complaints of progressive shortness of breath. He had a features of congestive heart failure and possible pneumonia. Echocardiogram revealed severe LV systolic dysfunction. Ejection fraction 15%. This is a significant drop from the previous echocardiogram couple of weeks ago. Cardiology consult is requested for further cardiac evaluation recommendations. This patient is a very poor historian. He was recently discharged in the hospital where he was admitted for a kyphoplasty and decompression. Apparently during the surgery, he became hypotensive. Decompression was not performed. Postoperatively, he went into heart failure. He was treated with diuretics and other symptomatic measures. His echocardiogram revealed normal LV size ejection fraction. Postoperatively, he was sent to the senior care for recuperation. In the senior care, he was found to be becoming more short of breath. He also was found to have a rapid heart rate. For these complaints, he was brought back to the emergency room. He was found to be in atrial fibrillation with rapid ventricular rate. He also had a pulm features of possible pneumonia/pleural effusion. His BNP was markedly elevated. He is currently on IV antibiotics. He denies any chest pain or chest tightness. No significant palpitations. He is known to have peripheral artery disease. In December of last year, he had angioplasty and stent placement of the left external iliac/common femoral and ostial segment of the superficial femoral artery. He apparently presented with a gangrenous toe on the left side. He is known to have high blood pressure and dyslipidemia. He has a history of cirrhosis of the liver and chronic hyponatremia. He also is known to have COPD, PACs and PVCs and a questionable history of atrial fibrillation. Review of Systems Narrative: CONSTITUTIONAL: No fever or chills. Recent back surgery, has been recuperating in the senior care EYES: No blurring of vision or other visual disturbances lately. [] ENT: No hoarseness of voice, auditory disturbances or sore throat. [] CARDIOVASCULAR: Recent diastolic heart failure RESPIRATORY: History of COPD and pneumonia GASTROINTESTINAL: No hematemesis or melena. [] GENITOURINARY: No dysuria or hematuria. [] INTEGUMENTARY: No skin rashes or history of skin cancer. [] NEURO: No transient ischemic attacks or amaurosis. [] PSYCHIATRIC: No history of psychosis or major depression. [] HEMATOLOGIC: No bleeding disorders or significant anemia. [] ENDOCRINE: No history of polyuria or polydipsia. [] MUSCULOSKELETAL: No recent joint pain or swelling. [] ALLERGY/IMMUNOLOGY: As mentioned above. [] Medications/Allergies Home Medications Medication Instructions Recorded Confirmed Last Taken Type multivitamin 1 tab PO DAILY 01/21/22 08/19/22 01/27/22 07:00 History clopidogrel 75 mg tablet 75 mg PO DAILY #30 tabs 01/23/22 08/19/22 01/26/22 Rx pentoxifylline 400 mg 400 mg PO TID 30 days #90 tabs 04/12/22 08/19/22 Unknown Rx tablet,extended release tramadol 50 mg tablet 50 mg PO BID PRN pain #45 tabs 07/21/22 08/19/22 Unknown Rx albuterol sulfate 90 mcg/actuation 2 puff inhalation Q6H PRN 08/03/22 08/19/22 Unknown History aerosol inhaler (ProAir HFA) Shortness Of Breath ferrous gluconate 324 mg (37.5 mg 324 mg PO DAILY 08/03/22 08/19/22 Unknown History iron) tablet folic acid 1 mg tablet 1 mg PO DAILY 08/03/22 08/19/22 Unknown History potassium chloride 20 mEq 20 meq PO DAILY 08/03/22 08/19/22 Unknown History tablet,extended release cilostazol 50 mg tablet 50 mg PO BID 08/04/22 08/19/22 Unknown History acetaminophen 325 mg tablet 650 mg PO Q6H PRN Pain/fever 08/19/22 08/19/22 Unknown History (Tylenol) bisacodyl 10 mg rectal suppository 10 mg ND DAILY PRN Constipation 08/19/22 08/19/22 Unknown History (Dulcolax (bisacodyl)) diltiazem HCl 120 mg 120 mg PO DAILY 08/19/22 08/19/22 Unknown History tablet,extended release 24 hr furosemide 40 mg tablet (Lasix) 40 mg PO BID 08/19/22 08/19/22 Unknown History hydrocodone 5 mg-acetaminophen 325 1 tab PO Q8H PRN Pain 08/19/22 08/19/22 Unknown History mg tablet magnesium hydroxide 400 mg/5 mL 30 ml PO DAILY PRN Constipation 08/19/22 08/19/22 Unknown History oral suspension (Milk of Magnesia) magnesium oxide 400 mg PO DAILY 08/19/22 08/19/22 Unknown History pantoprazole 40 mg tablet,delayed 40 mg PO DAILY 08/19/22 08/19/22 Unknown History release sodium phosphates 19 gram-7 118 ml ND BEDTIME PRN Constipation 08/19/22 08/19/22 Unknown History gram/118 mL enema (Fleet Enema) trazodone 50 mg tablet 25 mg PO BEDTIME 08/19/22 08/19/22 Unknown History Allergies Allergy/AdvReac Type Severity Reaction Status Date / Time No Known Allergies Allergy Verified 08/19/22 01:07 Current Medications Generic Name Dose Route Start Last Admin Trade Name Freq PRN Reason Stop Dose Admin Albuterol/Ipratropium 3 ml 08/19/22 08:00 08/19/22 20:50 Ipratropium-Albuterol 3 Ml Neb INHALATION 3 ml Q6H.RESP LINDA Administration Budesonide 0.5 mg 08/19/22 08:00 08/19/22 20:51 Budesonide 0.5 Mg/2 Ml Neb INHALATION 0.5 mg BID.RESPIRATORY LINDA Administration Clopidogrel Bisulfate 75 mg 08/19/22 09:00 08/19/22 09:14 Clopidogrel 75 Mg Tablet PO 75 mg DAILY LINDA Administration Enoxaparin Sodium 80 mg 08/19/22 18:00 08/19/22 17:08 Enoxaparin 80 Mg/0.8 Ml Syringe 1 mg/kg (100 mg) 80 mg SUBCUT Administration Q12H LINDA Furosemide 40 mg 08/19/22 15:00 08/19/22 16:02 Furosemide 10 Mg/Ml Sdv 4ml IVP 40 mg Q12H LINDA Administration Diltiazem HCl 100 mg/ Sodium 100 mls @ 0 mls/hr 08/19/22 02:00 08/19/22 04:35 Chloride IV Infused .Q0M LINDA Titration Protocol Per Protocol Amiodarone HCl 900 mg/ 518 mls @ 0 mls/hr 08/19/22 03:45 08/19/22 10:00 Dextrose/ IV Miscellaneous IV 0.5 mg/min Supplies .Q0M LINDA 17.27 mls/hr Titration Protocol Per Protocol Cefepime HCl 1,000 mg/ Sodium 50 mls @ 100 mls/hr 08/19/22 05:15 08/19/22 16:32 Chloride IV Infused Q12H LINDA Infusion Protocol Vancomycin/PEG/NADA/Lysine/Water 1,500 mg in 300 mls @ 200 mls/hr 08/19/22 06:00 08/19/22 07:49 Vancocin IV Infused Q18H LINDA Infusion Pantoprazole Sodium 40 mg 08/19/22 05:30 08/19/22 05:45 Pantoprazole 40 Mg Sdv IVP 40 mg Q24H LINDA Administration Prednisone 20 mg 08/19/22 09:00 08/19/22 09:14 Prednisone 20 Mg Tablet PO 08/24/22 08:59 20 mg DAILY LINDA Administration PFSH Acute PFSH: Medical History (Updated 08/20/22 @ 08:01 by Antonio Apodaca MD) Amputated toe of left foot discharged from wound care 07/05/22, follows with Dr Brunner Chronic alcohol use Chronic hyponatremia Claudication Compression fx, lumbar spine COPD (chronic obstructive pulmonary disease) Gait instability GERD (gastroesophageal reflux disease) History of nonmelanoma skin cancer History of smoking HTN (hypertension) Intractable back pain 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 Myalgia, multiple sites Nicotine dependence, chewing tobacco, with other nicotine-induced disorders Nodular basal cell carcinoma tip of nose, initial treatment with imiquimod, follows with Dr Gil PAC (premature atrial contraction) Right lower lobe pneumonia Severe peripheral arterial disease Slow urinary stream Spinal stenosis, lumbar region, with neurogenic claudication Surgical History 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 History of hip surgery right hip fracture repair S/P peripheral artery angioplasty with stent placement 12/2021 Left common/External Iliac Artery with 80% stenosis treated with AB ARMADA [id number]. 8.0 x 19 mm Omnilink stent was placed. Left Proximal Superficial Femoral Artery with 80-90 % stenosis treated with AB ARMADA 35 [id number]. Family History Other No pertinent family history Social History Smoking and tobacco status: current every day smoker smokeless tobacco Smokeless tobacco details: chewless pouches now, former chewing tobacco, former cigarette smoker Alcohol intake: current Alcohol type: hard liquor Lives independently: Yes Household members: none Housing: House Vitals/I&O/Wt Last Vital Signs Temp 97.8 F 08/19/22 17:14 Pulse 107 H 08/19/22 20:00 Resp 19 H 08/19/22 20:00 BP 106/60 08/19/22 20:00 Pulse Ox 93 08/19/22 20:00 O2 Del Method 08/19/22 20:00 O2 Flow Rate 4 08/19/22 08:54 08/19/22 08/19/22 08/19/22 06:59 14:59 22:59 Intake Total 1456.833 / 1456.833 860.274 / 860.274 170 / 1030.274 Output Total 0 / 0 250 / 250 575 / 825 Balance 1456.833 / 1456.833 610.274 / 610.274 -405 / 205.274 Weight last 48 hrs Weight 170 lb 13.732 oz Weight 170 lb 13.732 oz Weight 210 lb Physical Exam Narrative: GENERAL: The patient is alert and oriented times two. Not in any acute distress. HEENT: No significant pallor, icterus or lymphadenopathy.Oral cavity: There are no mucous membrane lesions. NECK: Trachea appears to be central. No masses noted. No JVD or thyromegaly appreciated. RESPIRATORY: Chest is symmetrical. No intercostals muscle retraction or any accessory muscle activation. There is no chest wall tenderness. Breath sounds are diminished in the right base. Bronchovesicular breath sounds in the left base. BREASTS: Deferred. HEART: The heart sounds are normal. No S3 or S4. No significant murmurs. No pericardial rub ABDOMEN: No vessel pulsations or distention. No tenderness. No organomegaly appreciated. Bowel sounds are normally heard. : Deferred. RECTAL: Deferred. LYMPHATIC: No lymphadenopathy noted in the neck. EXTREMITIES: No edema or cyanosis. No clubbing. MUSCULOSKELETAL: No acute joint deformities or swelling SKIN: There are no significant rashes or ecchymosis NEUROPSYCHIATRIC: The patient is alert and oriented x2. Appears to be in a good mood. No tremors or rigidity noted. Urinary Catheter Management: Ahn: Cath Placed During This Visit: yes Reason for Continuing Indwelling Catheter: Accurate Measurement of Urinary Output in Critically Ill Patients Urinary Catheter Date of Insertion: 08/19/22 Urinary Catheter Time of Insertion: 15:20 Data 08/19/22 01:53 08/19/22 01:53 Other Labs: Laboratory Last Values WBC 9.2 10^3/uL (4.0-10.0) 08/20/22 06:19 RBC 4.07 10^6/uL (4.1-5.3) L 08/20/22 06:19 Hgb 12.8 g/dL (11.7-16.6) 08/20/22 06:19 Hct 42.0 % (42.0-52.0) 08/20/22 06:19 MCV 103.2 fl (80-94) H D 08/20/22 06:19 MCH 31.4 pg (28.0-34.0) 08/20/22 06:19 MCHC 30.5 g/dL (30.0-36.0) D 08/20/22 06:19 RDW 14.0 % (12.1-15.1) 08/20/22 06:19 Plt Count 361 10^3/cmm (130-400) 08/20/22 06:19 MPV 9.9 fL (7.4-10.4) 08/20/22 06:19 Neut % (Auto) 69.6 % 08/20/22 06:19 Lymph % (Auto) 18.3 % 08/20/22 06:19 Major % (Auto) 10.1 % 08/20/22 06:19 Eos % (Auto) 0.7 % 08/20/22 06:19 Baso % (Auto) 0.8 % 08/20/22 06:19 Neut # (Auto) 6.41 10^3/uL (1.8-7.7) 08/20/22 06:19 Lymph # (Auto) 1.7 10^3/uL (0.8-4.8) 08/20/22 06:19 Major # (Auto) 0.9 10^3/uL (0.2-0.9) 08/20/22 06:19 Eos # (Auto) 0.1 10^3/uL (0.0-0.8) 08/20/22 06:19 Baso # (Auto) 0.1 10^3/uL (0.0-0.1) 08/20/22 06:19 Nucleated RBC % (auto) 0 % 08/20/22 06:19 Nucleated RBCs # 0.0 /100WBC 08/20/22 06:19 PT 14.20 SECONDS (12.1-14.9) 08/19/22 02:40 INR 1.07 (0.8-1.2) 08/19/22 02:40 Specimen Type Arterial 08/19/22 02:50 Sample Site Radial, right 08/19/22 02:50 ABG pH 7.48 (7.35-7.45) H 08/19/22 02:50 ABG pCO2 30.0 mmHg (35-45) L 08/19/22 02:50 ABG pO2 56.8 mmHg (80.0-100.0) L 08/19/22 02:50 ABG HCO3 22.5 mmol/L (22-26) 08/19/22 02:50 ABG Base Excess 0.0 mmol/L (-2.0-2.0) 08/19/22 02:50 Ramon Test Pos 08/19/22 02:50 Hematocrit 40.5 % (42-52) L 08/19/22 02:50 Hgb O2 Saturation 89.7 % (95-100) L 08/19/22 02:50 Carboxyhemoglobin 1.5 %THgb (0.4-20.1) 08/19/22 02:50 Methemoglobin 0.6 % (0.4-1.5) 08/19/22 02:50 Total Hemoglobin 13.2 g/dL (14-18) L 08/19/22 02:50 O2 Delivery Device Nc 08/19/22 02:50 O2 Liters/Min 2.0 % 08/19/22 02:50 Bread Packer ID [id number] 08/19/22 02:50 Sodium 137 mmol/L (136-145) 08/20/22 06:19 Potassium 3.3 mmol/L (3.5-5.1) L 08/20/22 06:19 Chloride 102 mmol/L (98-107) 08/20/22 06:19 Carbon Dioxide 23 mmol/L (22-29) 08/20/22 06:19 Anion Gap 15.3 (5-19) 08/20/22 06:19 BUN 11 mg/dL (8-23) 08/20/22 06:19 Creatinine 1.0 mg/dL (0.7-1.2) 08/20/22 06:19 GFR Calculation Not Reportable 08/20/22 06:19 Glucose 101 mg/dL (65-115) 08/20/22 06:19 Calculated Osmolality 284 mOsm/kg (285-295) L 08/20/22 06:19 Lactic Acid 1.8 mmol/L (0.5-2.2) 08/19/22 01:40 Calcium 8.4 mg/dL (8.5-10.5) L 08/20/22 06:19 Magnesium 2.1 mg/dL (1.7-2.3) 08/19/22 06:31 Total Bilirubin 0.4 mg/dL (0.15-1.2) 08/20/22 06:19 AST 15 U/L (0-40) 08/20/22 06:19 ALT 10 U/L (0-41) 08/20/22 06:19 Alkaline Phosphatase 168 U/L (40-130) H 08/20/22 06:19 Troponin T Baseline 60 ng/L (0-15) H 08/19/22 03:40 Troponin T 120 Minute 58.04 ng/L (0-15) H 08/19/22 06:31 Delta Troponin T -1.96 ABS# (0-10) L 08/19/22 06:31 Troponin T Hi Sens 6Hr 63.70 ng/L (0-15) H 08/19/22 09:50 Troponin T Hi Sens 6Hr Delta 3.70 ng/L (0-12) 08/19/22 09:50 NT-Pro-B Natriuret Pep 21199 pg/mL (0-450) H 08/19/22 01:53 Total Protein 5.7 g/dL (6.6-8.7) L 08/20/22 06:19 Albumin 3.0 g/dL (3.5-5.2) L 08/20/22 06:19 Globulin 2.7 g/dL (1.3-4.6) 08/20/22 06:19 Procalcitonin 0.07 ng/mL (0-0.5) 08/19/22 06:03 TSH 5.17 uIU/mL (0.27-4.20) H 08/20/22 06:19 Influenza Type A Ag Negative (Negative) 08/19/22 01:16 Influenza Type B Ag Negative (Negative) 08/19/22 01:16 SARS-CoV-2 Ag (Rapid) negative (Negative) 08/19/22 01:16 Micro: Microbiology 08/19/22 09:50 Legionella Urinary Antigen - Final Urine,Voided Bacterial Antigens - Final 08/19/22 01:53 Blood Culture - Preliminary Blood SPECIMEN COLLECTED 08/19/22 01:40 Blood Culture - Preliminary Blood SPECIMEN COLLECTED Echo: My impression: Severe diffuse hypokinesia of the left ventricle with an ?ejection fraction of around 15%.? Moderately dilated LV cavity. ?Mildly increased right ventricular size. Mildly decreased right ?ventricular systolic function. ?Mild biatrial enlargement. ?Thickened aortic valve. ?Thickened mitral valve. Moderate mitral annular calcification. ?Mild-moderate mitral valve regurgitation. ?Trace tricuspid valve regurgitation. ?Estimated pulmonary artery peak systolic pressure 22 mmHg ?Compared to the study from 01/21/2022, there is significant ?worsening of the LV systolic function-from 55% to 15% EKG 1: My Interpretation: The EKG showed atrial fibrillation with a ventricular rate of 99 bpm. Frequent PVCs. Diffuse nonspecific T wave changes. A&P Assessment and plan (1) Congestive heart failure: The patient has severe LV systolic dysfunction. Etiology of the dysfunction is not clear. Apparently he had a normal LV ejection fraction 2 weeks ago. They ambulate with might have, could be a contributing factor. However such a drastic drop is very unusual. Possibility of him having underlying coronary ischemia especially in view of his multiple risk factors including the peripheral arterial disease, is a strong consideration. This may need to be further evaluated by an angiogram. In the meanwhile, he may be treated with IV diuretics and other symptomatic measures. I may start him on an ROMÁN inhibitor and spironolactone. (2) Atrial fibrillation with RVR: Patient is on amiodarone. This may be continued. I will discontinue the diltiazem and start him on a beta-ashli. (3) Cardiomyopathy: Possibility of him having underlying coronary artery disease causing coronary ischemia and LV dysfunction is a strong consideration. Start him on a low-dose of nitrates and statin drug (4) Peripheral arterial disease: Currently asymptomatic. May continue on the Plavix. Plan His other problems are COPD Possible pneumonia Recent back surgery Based on the patient's clinical progress, further recommendations will be made. Once his heart failure and possible pneumonia are appropriately treated, need to consider a cardiac catheterization to evaluate his coronary arteries and decide on further management. Dr. Marx, his senior benefits specialist will be taking over his further management in the morning Consult Attestations Medical Necessity Statement: Patient requires continued hospital stay for close monitoring and further management Coding Level of Care Code 68893 Diagnoses Congestive heart failure I50.9 Atrial fibrillation with RVR I48.91 Cardiomyopathy I42.9 Peripheral arterial disease I73.9
[2022-08-20] VITALS (29 sets, daily range): BP systolic 83–120; BP diastolic 53–85; PULSE 94–123; RESP 13–40; TEMP 36.4–36.9; O2SAT 79–100; BMI 25.2
[2022-08-20] MEDS: ipratropium-albuterol 3 mL Neb INHALATION ×4 (02:45→20:22)
[2022-08-20] MEDS: FUROsemide 10 mg/mL SDV 4mL 40 MG IVP (03:15)
[2022-08-20] MEDS: enoxaparin 80 mg/0.8 mL Syringe SUBCUT ×2 (05:11→17:36)
[2022-08-20] MEDS: pantoprazole 40 mg SDV IVP (05:11)
[2022-08-20] MEDS: cefepime 1,000 MG in sodium chloride 0.9% (plus) 50 ML 100 MG IV ×2 (05:12→17:36)
[2022-08-20 06:32] LABS: Basophils # 0.1 10^3/uL (0.0-0.1); Basophils % 0.8 %; Eosinophils # 0.1 10^3/uL (0.0-0.8); Eosinophils % 0.7 %; Hemoglobin 12.8 g/dL (11.7-16.6); Lymphocytes # 1.7 10^3/uL (0.8-4.8); Lymphocytes % 18.3 %; Mean Corpuscular HGB Conc 30.5 g/dL (30.0-36.0); Mean Corpuscular Hemoglobin 31.4 pg (28.0-34.0); Mean Corpuscular Volume 103.2 fl (80-94); Mean Platelet Volume 9.9 fL (7.4-10.4); Monocytes # 0.9 10^3/uL (0.2-0.9); Monocytes % 10.1 %; Neutrophils # 6.41 10^3/uL (1.8-7.7); Neutrophils % 69.6 %; Nucleated Red Blood Cells % 0 %; Platelet Count 361 10^3/cmm (130-400); Red Blood Count 4.07 10^6/uL (4.1-5.3); White Blood Count 9.2 10^3/uL (4.0-10.0)
[2022-08-20 06:57] LABS: Alanine Aminotransferase 10 U/L (0-41); Alkaline Phosphatase 168 U/L (40-130); Anion Gap 15.3 (5-19); Aspartate Amino Transferase 15 U/L (0-40); Blood Urea Nitrogen 11 mg/dL (8-23); Calcium 8.4 mg/dL (8.5-10.5); Carbon Dioxide 23 mmol/L (22-29); Chloride 102 mmol/L (98-107); Globulin 2.7 g/dL (1.3-4.6); Glucose 101 mg/dL (65-115); Osmolality Calculated 284 mOsm/kg (285-295); Potassium 3.3 mmol/L (3.5-5.1); Sodium 137 mmol/L (136-145); Thyroid Stimulating Hormone 5.17 uIU/mL (0.27-4.20); Total Bilirubin 0.4 mg/dL (0.15-1.2); Total Protein 5.7 g/dL (6.6-8.7)
[2022-08-20] MEDS: potassium chloride ER 20 mEq Tablet 40 MEQ PO ×2 (08:11→13:35)
[2022-08-20] MEDS: predniSONE 20 mg Tablet PO (08:11)
[2022-08-20] MEDS: clopidogrel 75 mg Tablet PO ×2 (08:11)
--- NOTE | 2022-08-20 08:46 | P.PN_ITS ---
Subjective Subjective: Reginald reports that he feels as if his shortness of breath is doing okay on the oxygen. He coughs on occasion but reports he is not coughing anything up. No chest discomfort. Medications: Reviewed: Yes Vitals/I&O/Wt Last Vital Signs Temp 98.1 F 08/20/22 03:00 Pulse 97 08/20/22 05:45 Resp 15 08/20/22 05:30 BP 97/64 08/20/22 05:30 Pulse Ox 95 08/20/22 05:30 O2 Del Method 08/20/22 02:51 O2 Flow Rate 4 08/20/22 02:51 08/19/22 08/20/22 08/20/22 22:59 06:59 14:59 Intake Total 420 / 1280.274 717.726 / 1998.000 Output Total 1125 / 1375 375 / 1750 Balance -705 / -94.726 342.726 / 248.000 Weight last 48 hrs Weight 77.5 kg Weight 77.5 kg Weight 77.5 kg Weight 95.254 kg Physical Exam Narrative: General exam is no distress, currently on 4 L of oxygen Neck is supple Cardiovascular irregular irregular with accelerated rate Lungs diminished breath sounds at the bases. No wheezes. Abdomen is soft with positive bowel sounds Extremities 1-2+ edema. No cyanosis or clubbing. Skin no rash Urinary Catheter Management: Ahn: Cath Placed During This Visit: yes Reason for Continuing Indwelling Catheter: Accurate Measurement of Urinary Output in Critically Ill Patients Urinary Catheter Date of Insertion: 08/19/22 Urinary Catheter Time of Insertion: 15:20 Data 08/20/22 06:19 08/20/22 06:19 Other Labs: Echocardiogram demonstrated diffuse hypokinesis, EF 15% with dilated LV cavity, mild to moderate mitral regurgitation. This was a significant change from study in December 2021. Micro: Microbiology 08/19/22 01:53 Blood Culture - Preliminary Blood NEGATIVE TO DATE 08/19/22 01:40 Blood Culture - Preliminary Blood NEGATIVE TO DATE 08/19/22 09:50 Legionella Urinary Antigen - Final Urine,Voided Bacterial Antigens - Final A&P Assessment and plan (1) Community acquired pneumonia: He had received Levaquin as an outpatient. He is currently on cefepime and vancomycin MRSA PCR is pending Symptomatology may be better explained by severely low EF and congestive heart failure. If MRSA PCR is negative will discontinue vancomycin. Procalcitonin level was checked and not elevated. If no fever, or elevated white count consider discontinuation of IV antibiotics if blood cultures negative at 48 to 72 hours and no further concerns on microbiology Wean oxygen as tolerated CTA demonstrated no pulmonary embolism, large right and small left effusions with lower lung atelectasis/possible pneumonia Thoracentesis was considered on the right secondary to volume of effusion, however patient is currently on Lovenox and Plavix and there are no secondary signs of empyema/infection. This could still be considered if he does not improve with diuretics. (2) Atrial fibrillation with RVR: Currently on an amiodarone drip with improved heart rate. Blood pressure is still somewhat low, but likely consistent with his ejection fraction being 15% Electrolytes for the most part been corrected. Potassium will be given again today. Troponin is consistent with type II elevation Cardiology consultation secondary to significantly low ejection fraction, atrial fibrillation/flutter requiring amiodarone IV He is fully anticoagulated currently. (3) COPD (chronic obstructive pulmonary disease): With possible exacerbation. Continue prednisone, nebs (4) Goals of care, counseling/discussion: He would be okay with receiving cardiopulmonary resuscitation in case of arrest. In case he could not make his own decisions names his cousin Irina Sanon as surrogate decision-maker. (5) Congestive heart failure: Consistent with acute systolic congestive heart failure. Diuresis lackluster in the last 24 hours Increase furosemide to 60 mg IV every 12 hours Fluid restriction initiated Cardiology consultation Close follow-up of BMP tomorrow along with magnesium Plan Recent hospitalization with compression fractures, underwent kyphoplasty due to intractable pain. Consider follow-up assessment and treatment for osteoporosis. PAD. Currently on Plavix Previous history of significant alcohol use. No history of withdrawal. Presented from nursing facility this time where he is at for rehabilitation. HTN. Blood pressure currently low Spinal stenosis with neurogenic claudication Other medical problems as noted in past medical history Full code currently Lovenox will suffice for DVT prophylaxis Attestations Medical Necessity Statement*: Requires continued hospitalization in the ICU secondary to atrial fibrillation with rapid ventricular rate requiring IV amiodarone, lower blood pressure, bilateral pleural effusions, concern of pneumonia, etc. Coding Level of Care Code Critical Care >/= 30 minutes Critical care time (in minutes): 34 The high probability of a clinically significant, sudden or life threatening deterioration, as referenced in this documentation, required my full and direct attention, intervention and personal management. The critical care time shown is in addition to time spent performing any reported separately billable procedures and includes the following: [x] Data and vital sign review and interpretation [x ] Patient assessment, examination and intervention [x] Medication orders and management [x] Patient/Family updates as able [x] Care Coordination and Documentation. Diagnoses Community acquired pneumonia J18.9 Atrial fibrillation with RVR I48.91 COPD (chronic obstructive pulmonary disease) J44.9 Goals of care, counseling/discussion Z71.89 Congestive heart failure I50.9
[2022-08-20] MEDS: spironolactone 25 mg Tablet PO (08:50)
[2022-08-20] MEDS: budesonide 0.5 mg/2 mL Neb INHALATION ×2 (09:12→20:22)
--- NOTE | 2022-08-20 09:59 | PC.NURSE ---
Pt has been on his call light every 10 minutes demanding to see the doctors right now, wanting a coke ( he is on a fluid restriction), and for a multitude of little things. Per patient he does not like his fluid restriction, nor his diet order, also thinks nothing is being done for him. Discussed his plan of care with him: Heart failure, arrhythmia, fluid restriction, lasix, etc. Pt verbalized his understanding
--- NOTE | 2022-08-20 14:12 | P.PN_ITS ---
Subjective Subjective: Patient is diuresing well. no chest pain. Heart rate is still borderline elevated. Vitals/I&O/Wt Last Vital Signs Temp 98.4 F 08/20/22 12:00 Pulse 107 H 08/20/22 12:00 Resp 24 H 08/20/22 12:00 BP 111/85 08/20/22 12:00 Pulse Ox 96 08/20/22 12:00 O2 Del Method 08/20/22 12:00 O2 Flow Rate 4 08/20/22 12:00 08/19/22 08/20/22 08/20/22 22:59 06:59 14:59 Intake Total 420 / 1280.274 717.726 / 1998.000 300 / 300 Output Total 1125 / 1375 375 / 1750 1200 / 1200 Balance -705 / -94.726 342.726 / 248.000 -900 / -900 Weight last 48 hrs Weight 170 lb 13.732 oz Weight 170 lb 13.732 oz Weight 170 lb 13.732 oz Weight 210 lb Physical Exam Narrative: GENERAL: Patient is alert, awake and oriented x3. [] NECK: No jugular vein distension. [] HEENT: No cyanosis. No icterus. No pallor. [] HEART: Tachycardic, irregularly irregular LUNGS: Has bilateral crackles. CENTRAL NERVOUS SYSTEM: Grossly nonfocal. [] EXTREMITIES: Lower extremities with 1+ edema bilaterally. Pulses palpable in the lower extremities, both dorsalis pedis and posterior tibial. [] Urinary Catheter Management: Ahn: Cath Placed During This Visit: yes Reason for Continuing Indwelling Catheter: Accurate Measurement of Urinary Output in Critically Ill Patients Urinary Catheter Date of Insertion: 08/19/22 Urinary Catheter Time of Insertion: 15:20 Data 08/20/22 06:19 08/20/22 06:19 Micro: Microbiology 08/19/22 09:57 MRSA Culture - Final Nose 08/19/22 01:53 Blood Culture - Preliminary Blood NEGATIVE TO DATE 08/19/22 01:40 Blood Culture - Preliminary Blood NEGATIVE TO DATE 08/19/22 09:50 Legionella Urinary Antigen - Final Urine,Voided Bacterial Antigens - Final A&P Assessment and plan (1) Congestive heart failure: Recent drop in LV systolic function. We will proceed with coronary angiogram with possible percutaneous coronary intervention once he is euvolemic. (2) Atrial fibrillation with RVR: Amiodarone can be switched to PO amiodarone. Continue metoprolol. (3) Cardiomyopathy: .New onset LV dysfunction. Plan for coronary angiogram once patient is euvolemic. (4) Peripheral arterial disease: Continue current therapy. Plan His other problems are COPD Possible pneumonia Recent back surgery Once patient is euvolemic, he will need coronary angiogram. Attestations Medical Necessity Statement*: Care expected to cross 2 midnights. Coding Level of Care Code Acute Code for [facility] Diagnoses Congestive heart failure I50.9 Atrial fibrillation with RVR I48.91 Cardiomyopathy I42.9 Peripheral arterial disease I73.9
[2022-08-20] MEDS: FUROsemide 10 mg/mL SDV 4mL 60 MG IVP (14:49)
[2022-08-20] MEDS: amiodarone 200 mg Tablet 400 MG PO (17:36)
[2022-08-20] MEDS: vancomycin 1,500 MG/300 ML PIGGYBACK 200 MG IV (18:22)
--- NOTE | 2022-08-20 18:27 | PC.NURSE ---
Pt stated he had little peppermint packets that he used to improved the taste in hi mouth. Upon further inspection, his peppermint packets' were like smokelss toabacco ( Skoal) packets.
--- NOTE | 2022-08-20 18:29 | PC.NURSE ---
Pt rested in bed except for PT therapy. For the most part of the day he preferred not to have position changes. He does have two tiny ulcers on his bottom neither bigger than the size of a pencil eraser. He is alert and oriented to self, place and time. Pt cantankerous this am but he has since settled down. Monitor still shows A Fib. He is on Amiodarone gtt, that is to be stopped at 2030, he has already had hsi oral Amiodarone tablets. He has had Lasix once this shift IV. Speech therapy assessed and evaluated him again this evening, his diet downgrade to Dysphagia 6, Liquids now can be thinner. Pt was very pleased about this aspect of his care. He has complained of his back pain but has refused offered acetaminophen. Repositioning done at his request. He still has stitches in his back from his recent back surgery. Urine out put of 2000ml this shift.
--- NOTE | 2022-08-20 20:06 | PC.OT ---
OT Eval Held - Eval held on this day secondary to insufficient time for completion of evaluation.
[2022-08-20] MEDS: atorvastatin 40 mg Tablet PO (20:41)
[2022-08-20] MEDS: acetaminophen 325 mg Tablet 650 MG PO (20:49)
[2022-08-20] MEDS: trazodone 50 mg Tablet 25 MG PO (23:12)
[2022-08-21] VITALS (18 sets, daily range): BP systolic 77–124; BP diastolic 55–79; PULSE 84–106; RESP 17–32; TEMP 36.3–36.8; O2SAT 91–98; BMI 25.2
[2022-08-21] MEDS: ipratropium-albuterol 3 mL Neb INHALATION ×4 (02:41→22:02)
[2022-08-21] MEDS: FUROsemide 10 mg/mL SDV 4mL 60 MG IVP ×2 (02:41→15:05)
[2022-08-21] MEDS: cefepime 1,000 MG in sodium chloride 0.9% (plus) 50 ML 100 MG IV ×2 (05:12→17:57)
[2022-08-21] MEDS: pantoprazole 40 mg SDV IVP (05:13)
[2022-08-21] MEDS: enoxaparin 80 mg/0.8 mL Syringe SUBCUT ×2 (05:13→17:57)
[2022-08-21 06:11] LABS: Basophils # 0.1 10^3/uL (0.0-0.1); Basophils % 0.7 %; Eosinophils % 0.4 %; Hemoglobin 13.1 g/dL (11.7-16.6); Lymphocytes # 2.2 10^3/uL (0.8-4.8); Lymphocytes % 20.5 %; Mean Corpuscular HGB Conc 32.8 g/dL (30.0-36.0); Mean Corpuscular Hemoglobin 32.2 pg (28.0-34.0); Mean Corpuscular Volume 98.3 fl (80-94); Mean Platelet Volume 9.4 fL (7.4-10.4); Monocytes % 9.1 %; Neutrophils # 7.26 10^3/uL (1.8-7.7); Neutrophils % 68.6 %; Nucleated Red Blood Cells % 0 %; Platelet Count 489 10^3/cmm (130-400); Red Blood Count 4.07 10^6/uL (4.1-5.3); Red Cell Distribution Width 14.1 % (12.1-15.1); White Blood Count 10.6 10^3/uL (4.0-10.0)
[2022-08-21 06:31] LABS: Anion Gap 17.6 (5-19); Blood Urea Nitrogen 14 mg/dL (8-23); Calcium 8.2 mg/dL (8.5-10.5); Carbon Dioxide 23 mmol/L (22-29); Chloride 98 mmol/L (98-107); Glucose 110 mg/dL (65-115); Magnesium 1.8 mg/dL (1.7-2.3); Osmolality Calculated 281 mOsm/kg (285-295); Potassium 3.6 mmol/L (3.5-5.1); Sodium 135 mmol/L (136-145)
--- NOTE | 2022-08-21 08:14 | P.PN_ITS ---
Subjective Subjective: Patient is doing better. No chest pain. Vitals/I&O/Wt Last Vital Signs Temp 98.3 F 08/21/22 04:00 Pulse 93 08/21/22 06:00 Resp 29 H 08/21/22 04:00 BP 77/62 08/21/22 04:00 Pulse Ox 95 08/21/22 04:00 O2 Del Method 08/21/22 02:43 O2 Flow Rate 2 08/21/22 02:43 08/20/22 08/21/22 08/21/22 22:59 06:59 14:59 Intake Total 660 / 1110 150 / 1260 Output Total 1350 / 2550 900 / 3450 Balance -690 / -1440 -750 / -2190 Weight last 48 hrs Weight 170 lb 13.732 oz Weight 170 lb 13.732 oz Physical Exam 2 Narrative: GENERAL: Patient is alert, awake and oriented x3. [] NECK: No jugular vein distension. [] HEENT: No cyanosis. No icterus. No pallor. [] HEART: Tachycardic, irregularly irregular LUNGS: Has bilateral crackles. CENTRAL NERVOUS SYSTEM: Grossly nonfocal. [] EXTREMITIES: Lower extremities with 1+ edema bilaterally. Pulses palpable in the lower extremities, both dorsalis pedis and posterior tibial. [] Urinary Catheter Management: Ahn: Cath Placed During This Visit: yes Reason for Continuing Indwelling Catheter: Accurate Measurement of Urinary Output in Critically Ill Patients Urinary Catheter Date of Insertion: 08/19/22 Urinary Catheter Time of Insertion: 15:20 Data 08/21/22 04:55 08/21/22 04:55 Micro: Microbiology 08/19/22 09:57 MRSA Culture - Final Nose A&P Assessment and plan (1) Congestive heart failure: Recent drop in LV systolic function. Plan for angiogram once euvolemic. (2) Atrial fibrillation with RVR: Heart rate is better controlled. Continue amiodarone (3) Cardiomyopathy: New onset LV dysfunction. Plan for coronary angiogram once patient is euvolemic. Diuresing well. Continue. Close I and Os. (4) Peripheral arterial disease: Continue current therapy. Plan His other problems are COPD Possible pneumonia Recent back surgery Once patient is euvolemic, he will need coronary angiogram. Attestations Medical Necessity Statement*: Care expected to cross 2 midnights. Coding Level of Care Code Acute Code for [facility] Diagnoses Congestive heart failure I50.9 Atrial fibrillation with RVR I48.91 Cardiomyopathy I42.9 Peripheral arterial disease I73.9
--- NOTE | 2022-08-21 08:50 | PC.NURSE ---
Pt up to chair in room with assistance of PT, walker and gait belt.
[2022-08-21] MEDS: predniSONE 20 mg Tablet PO (09:12)
[2022-08-21] MEDS: potassium chloride ER 20 mEq Tablet 40 MEQ PO (09:12)
[2022-08-21] MEDS: clopidogrel 75 mg Tablet PO (09:12)
[2022-08-21] MEDS: spironolactone 25 mg Tablet PO (09:12)
[2022-08-21] MEDS: amiodarone 200 mg Tablet 400 MG PO ×2 (09:12→17:57)
[2022-08-21] MEDS: budesonide 0.5 mg/2 mL Neb INHALATION ×2 (09:15→22:02)
--- NOTE | 2022-08-21 11:10 | NUR.SHIFT ---
Pt back to bed after working with PT.
[2022-08-21] MEDS: vancomycin 1,500 MG/300 ML PIGGYBACK 200 MG IV (12:28)
--- NOTE | 2022-08-21 15:43 | PC.NURSE ---
Report called to [facility]SU and given to MARJORIE Ludwig
[2022-08-21] MEDS: acetaminophen 325 mg Tablet 650 MG PO (15:54)
--- NOTE | 2022-08-21 16:27 | PC.NURSE ---
Pt transferred to room 111-2 after Tylenol administered for the burning form the catheter.
--- NOTE | 2022-08-21 17:22 | P.PN_ITS ---
Subjective Subjective: Patient was seen this morning, he feels a lot better, he still feels weak, but his shortness of breath has improved, Vitals/I&O/Wt Last Vital Signs Temp 97.4 F L 08/21/22 16:00 Pulse 106 H 08/21/22 16:00 Resp 22 H 08/21/22 16:00 BP 120/74 08/21/22 16:00 Pulse Ox 94 08/21/22 16:00 O2 Del Method 08/21/22 14:00 O2 Flow Rate 3 08/21/22 14:00 08/21/22 08/21/22 08/21/22 06:59 14:59 22:59 Intake Total 150 / 1260 500 / 500 818 / 1318 Output Total 900 / 3450 950 / 950 Balance -750 / -2190 500 / 500 -132 / 368 Weight last 48 hrs Weight 77.5 kg Weight 77.5 kg Physical Exam Const: COMMON NORMALS: no acute distress and patient oriented x3 Resp: COMMON NORMALS: normal respiratory effort, No retractions, No use of accessory muscles and clear to auscultation bilaterally AUSCULTATION: clear to auscultation bilaterally Cardio: COMMON NORMALS: regular rate, regular rhythm, S1 normal heart sound present and S2 normal heart sound present RATE: regular rate RHYTHM: regular rhythm HEART SOUNDS: S1 normal heart sound present and S2 normal heart sound present GI: COMMON NORMALS: Normal to inspection, nondistended, normoactive bowel sounds present and non-tender Extremity: COMMON NORMALS: no pedal edema Neuro: COMMON NORMALS: patient oriented x3 Psych: COMMON NORMALS: mental status grossly normal Urinary Catheter Management: Ahn: Cath Placed During This Visit: yes Reason for Continuing Indwelling Catheter: Accurate Measurement of Urinary Output in Critically Ill Patients Urinary Catheter Date of Insertion: 08/19/22 Urinary Catheter Time of Insertion: 15:20 Data 08/21/22 04:55 08/21/22 04:55 Micro: Microbiology 08/19/22 09:57 MRSA Culture - Final Nose A&P Assessment and plan (1) Community acquired pneumonia: He had received Levaquin as an outpatient. He is currently on cefepime and vancomycin MRSA PCR is negative stop vancomycin Symptomatology may be better explained by severely low EF and congestive heart failure. Procalcitonin level was checked and not elevated. If no fever, or elevated white count consider discontinuation of IV antibiotics if blood cultures negative at 48 to 72 hours and no further concerns on microbio logy Wean oxygen as tolerated CTA demonstrated no pulmonary embolism, large right and small left effusions with lower lung atelectasis/possible pneumonia Thoracentesis was considered on the right secondary to volume of effusion, however patient is currently on Lovenox and Plavix and there are no secondary signs of empyema/infection. This could still be considered if he does not improve with diuretics. (2) Atrial fibrillation with RVR: Currently on amiodarone 400 mg twice a day Blood pressure is still somewhat low, but likely consistent with his ejection fraction being 15% Troponin is consistent with type II elevation Cardiology consultation secondary to significantly low ejection fraction, atrial fibrillation/flutter He is fully anticoagulated currently. (3) COPD (chronic obstructive pulmonary disease): With possible exacerbation. Continue prednisone, nebs (4) Goals of care, counseling/discussion: He would be okay with receiving cardiopulmonary resuscitation in case of arrest. In case he could not make his own decisions names his cousin Irina Sanon as surrogate decision-maker. (5) Congestive heart failure: Consistent with acute systolic congestive heart failure. Continue furosemide to 60 mg IV every 12 hours Fluid restriction initiated Cardiology consultation Plan Recent hospitalization with compression fractures, underwent kyphoplasty due to intractable pain. Consider follow-up assessment and treatment for osteoporosis. PAD. Currently on Plavix Previous history of significant alcohol use. No history of withdrawal. Presented from nursing facility this time where he is at for rehabilitation. HTN. Blood pressure currently low Spinal stenosis with neurogenic claudication Other medical problems as noted in past medical history Full code currently Lovenox will suffice for DVT prophylaxis Attestations Medical Necessity Statement*: Patient requires hospitalization for A-fib, CHF, pneumonia, diminished ejection fraction Diagnoses Community acquired pneumonia J18.9 Atrial fibrillation with RVR I48.91 COPD (chronic obstructive pulmonary disease) J44.9 Goals of care, counseling/discussion Z71.89 Congestive heart failure I50.9
[2022-08-21] MEDS: atorvastatin 40 mg Tablet PO (20:02)
[2022-08-21] MEDS: trazodone 50 mg Tablet 25 MG PO (20:03)
--- NOTE | 2022-08-21 22:52 | PC.NURSE ---
Patient has nagging productive cough. Noted patient to have large amount of leslie thick sputum. Patient unable to rest. Informed Dr Verdugo. to place orders.
[2022-08-21] MEDS: guaiFENesin 100 mg/5 mL UDC 10 mL 200 MG PO (23:03)
[2022-08-22] VITALS (20 sets, daily range): BP systolic 101–119; BP diastolic 68–83; PULSE 89–103; RESP 15–30; TEMP 36.2–37; O2SAT 84–100; BMI 26.9
[2022-08-22] MEDS: ipratropium-albuterol 3 mL Neb INHALATION ×4 (02:24→20:55)
[2022-08-22 03:25] LABS: Basophils % 0.3 %; Eosinophils % 0.1 %; Hematocrit 39.6 % (42.0-52.0); Hemoglobin 12.8 g/dL (11.7-16.6); Lymphocytes # 1.7 10^3/uL (0.8-4.8); Lymphocytes % 16.2 %; Mean Corpuscular HGB Conc 32.3 g/dL (30.0-36.0); Mean Corpuscular Hemoglobin 31.9 pg (28.0-34.0); Mean Corpuscular Volume 98.8 fl (80-94); Mean Platelet Volume 10.2 fL (7.4-10.4); Monocytes # 0.8 10^3/uL (0.2-0.9); Monocytes % 7.5 %; Neutrophils # 7.75 10^3/uL (1.8-7.7); Neutrophils % 75.4 %; Nucleated Red Blood Cells % 0.3 %; Platelet Count 474 10^3/cmm (130-400); Red Blood Count 4.01 10^6/uL (4.1-5.3); Red Cell Distribution Width 14.2 % (12.1-15.1); White Blood Count 10.3 10^3/uL (4.0-10.0)
[2022-08-22 03:44] LABS: Phosphorus 2.9 mg/dL (2.5-4.5)
[2022-08-22 04:05] LABS: Blood Urea Nitrogen 17 mg/dL (8-23); Calcium 8.8 mg/dL (8.5-10.5); Carbon Dioxide 22 mmol/L (22-29); Chloride 99 mmol/L (98-107); Glucose 104 mg/dL (65-115); NT Pro B Type Natriuretic Pept 24874 pg/mL (0-450); Osmolality Calculated 282 mOsm/kg (285-295); Sodium 135 mmol/L (136-145)
[2022-08-22] MEDS: cefepime 1,000 MG in sodium chloride 0.9% (plus) 50 ML 100 MG IV (04:29)
[2022-08-22] MEDS: pantoprazole 40 mg SDV IVP (04:31)
[2022-08-22] MEDS: FUROsemide 10 mg/mL SDV 4mL 60 MG IVP ×2 (04:32→15:50)
--- NOTE | 2022-08-22 04:32 | PC.NURSE ---
Patient continues to have hematuria return in his rod catheter. Dr Tamayo is aware of patient's hematuria. Performed ivania-care and irrigated line with 20cc of normal saline. Patient tolerated well and expressed thanks.
--- NOTE | 2022-08-22 06:14 | PC.NURSE ---
Patient concerned about blood in his urine. Patient refusing Lovenox until MD lets him know it is okay.
--- NOTE | 2022-08-22 07:39 | PM.PN ---
Subjective Subjective: Patient is doing better. Has hematuria noted in the catheter. Hgb is stable. Vitals/I&O/Wt Last Vital Signs Temp 97.9 F 08/22/22 04:00 Pulse 98 08/22/22 06:00 Resp 16 08/22/22 04:00 BP 111/71 08/22/22 04:00 Pulse Ox 94 08/22/22 05:42 O2 Del Method 08/22/22 05:42 O2 Flow Rate 3 08/21/22 14:00 08/21/22 08/22/22 08/22/22 22:59 06:59 14:59 Intake Total 1348 / 1848 50 / 1898 Output Total 1250 / 1250 200 / 1450 Balance 98 / 598 -150 / 448 Weight last 48 hrs Weight 182 lb 7 oz Weight 170 lb 13.732 oz Physical Exam Narrative: GENERAL: Patient is alert, awake and oriented x3. [] NECK: No jugular vein distension. [] HEENT: No cyanosis. No icterus. No pallor. [] HEART: Tachycardic, irregularly irregular LUNGS: Has bilateral crackles. CENTRAL NERVOUS SYSTEM: Grossly nonfocal. [] EXTREMITIES: Lower extremities with 1+ edema bilaterally. Pulses palpable in the lower extremities, both dorsalis pedis and posterior tibial. [] Urinary Catheter Management: Ahn: Cath Placed During This Visit: yes Reason for Continuing Indwelling Catheter: Accurate Measurement of Urinary Output in Critically Ill Patients Urinary Catheter Date of Insertion: 08/19/22 Urinary Catheter Time of Insertion: 15:20 Data 08/22/22 02:48 08/22/22 02:48 A&P Assessment and plan (1) Congestive heart failure: Recent drop in LV systolic function. Plan for angiogram once euvolemic. Initial plan was for tuesday but patient has hematuria noted. Will wait for it to clear up. (2) Atrial fibrillation with RVR: Heart rate is better controlled. Continue amiodarone (3) Cardiomyopathy: New onset LV dysfunction. Plan for coronary angiogram likely in 1-2 days. Diuresing well. Continue. Close I and Os. (4) Peripheral arterial disease: Continue current therapy. Plan His other problems are COPD Possible pneumonia Recent back surgery Once patient is euvolemic and hematuria clears, he will need coronary angiogram. Attestations Medical Necessity Statement*: Care expected to cross 2 midnights. Coding Level of Care Code Acute Code for [facility] Diagnoses Congestive heart failure I50.9 Atrial fibrillation with RVR I48.91 Cardiomyopathy I42.9 Peripheral arterial disease I73.9
--- NOTE | 2022-08-22 07:57 | USR_ITS ---
PROCEDURE INFORMATION: Exam: US Retroperitoneal; Complete; Kidneys and Bladder Exam date and time: 08/22/2022 4:43 PM Age: 82 years old Clinical indication: Screening exam; Other: Hydronephrosis; Additional info: Hematuria TECHNIQUE: Imaging protocol: Real-time ultrasound of the retroperitoneum with image documentation. Complete exam focused on the kidneys and bladder. COMPARISON: CT angio abd aorta runof [id number] 01/19/2022 2:41 PM FINDINGS: Right kidney: 10.4 x 5 x 5.6 cm. Left kidney: 10 x 5.1 x 5.9 cm Intraperitoneal space: No free fluid within the pelvis or within the dependent portions of the peritoneum. Urinary bladder: Nondistended bladder. Ahn catheter. US/US renal BI* [id number] IMPRESSION: Unremarkable.
[2022-08-22] MEDS: budesonide 0.5 mg/2 mL Neb INHALATION ×2 (08:32→20:55)
[2022-08-22] MEDS: amiodarone 200 mg Tablet 400 MG PO ×2 (09:13→17:46)
[2022-08-22] MEDS: clopidogrel 75 mg Tablet PO (09:13)
[2022-08-22] MEDS: potassium chloride ER 20 mEq Tablet 40 MEQ PO (09:13)
[2022-08-22] MEDS: predniSONE 20 mg Tablet PO (09:13)
[2022-08-22] MEDS: spironolactone 25 mg Tablet PO (09:14)
[2022-08-22 09:33] LABS: Add Urine Microscopic? YES; Bilirubin Urine Neg (Negative); Blood Urine 3+ (Negative); Glucose Urine UA Norm (Normal); Ketones Urine Negative (Negative); Leukocyte Esterase Urine Trace (Negative); Nitrate Urine Negative (Negative); Protein Urine 1+ (Negative); Specific Gravity, Urine 1.015 (1.005-1.030); Urine Appearance Cloudy (CLEAR); Urine Color Red (Yellow); Urobilinogen Urine Norm (Negative); pH Urine 5 (5-7)
[2022-08-22 09:34] LABS: RBC Urine TOO NUMEROUS TO CNT /hpf (0-2)
[2022-08-22 09:36] LABS: Squamous Epithelial Cell Urine RARE /hpf (0-5)
[2022-08-22 09:37] LABS: Add Urine Culture? Yes; Bacteria Urine TRACE /hpf; Mucus Urine TRACE /hpf
--- NOTE | 2022-08-22 10:36 | PC.NURSE ---
dr bar evaluated pt at 0800 this morning.he ordered to advance rod catheter and irrigate due to continued hematuria.rod advanced and irrigated with 100 cc ns.one tiny blood clot noted.urine cleared well after irrigation...but at 1040 noted to have turned light pink.will cont to observe for need of cbi
--- NOTE | 2022-08-22 10:55 | PC.SOCIAL ---
IMM Update pg 2 of IMM updated and reviewed w/ patient. Copy provided and copy dated, initialed and placed in chart.
--- NOTE | 2022-08-22 11:23 | PC.SOCIAL ---
IMM Update pg 2 of IMM updated and reviewed w/ patient. Copy provided and Copy dated, initialed and placed in chart.
--- NOTE | 2022-08-22 12:10 | P.PN_ITS ---
Subjective Subjective: Patient was seen this morning, he is only complaint is hematuria, the Ahn catheter is bothering him, Vitals/I&O/Wt Last Vital Signs Temp 98.6 F 08/22/22 08:07 Pulse 89 08/22/22 08:40 Resp 20 H 08/22/22 08:40 BP 119/80 08/22/22 08:07 Pulse Ox 94 08/22/22 08:40 O2 Del Method 08/22/22 08:40 O2 Flow Rate 3 08/21/22 14:00 08/21/22 08/22/22 08/22/22 22:59 06:59 14:59 Intake Total 1348 / 1848 50 / 1898 120 / 120 Output Total 1250 / 1250 200 / 1450 600 / 600 Balance 98 / 598 -150 / 448 -480 / -480 Weight last 48 hrs Weight 82.752 kg Weight 77.5 kg Physical Exam Const: COMMON NORMALS: no acute distress and patient oriented x3 Resp: COMMON NORMALS: normal respiratory effort, No retractions, No use of accessory muscles and clear to auscultation bilaterally AUSCULTATION: clear to auscultation bilaterally Cardio: COMMON NORMALS: regular rate, regular rhythm, S1 normal heart sound present and S2 normal heart sound present RATE: regular rate RHYTHM: regular rhythm HEART SOUNDS: S1 normal heart sound present and S2 normal heart sound present GI: COMMON NORMALS: Normal to inspection, nondistended, normoactive bowel sounds present and non-tender Extremity: COMMON NORMALS: no pedal edema Neuro: COMMON NORMALS: patient oriented x3 Psych: COMMON NORMALS: mental status grossly normal Urinary Catheter Management: Ahn: Cath Placed During This Visit: yes Reason for Continuing Indwelling Catheter: Accurate Measurement of Urinary Output in Critically Ill Patients Urinary Catheter Date of Insertion: 08/19/22 Urinary Catheter Time of Insertion: 15:20 Data 08/22/22 02:48 08/22/22 02:48 Micro: Microbiology 08/21/22 23:05 Gram Stain - Final Sputum - Expectorated Sputum A&P Assessment and plan (1) Hematuria: - Hematuria -I have asked nursing staff to reposition his Ahn catheter, to flush it with normal saline -If his hematuria clears, can continue intermittent flushes -However if it persists, will do CBI -Hold Lovenox for now -Continue Plavix given concerns for CAD as below (2) Community acquired pneumonia: He had received Levaquin as an outpatient. De-escalated off cefepime and vancomycin MRSA PCR is negative stop vancomycin Symptomatology may be better explained by severely low EF and congestive heart failure. Procalcitonin level was checked and not elevated. Currently on Augmentin Wean oxygen as tolerated CTA demonstrated no pulmonary embolism, large right and small left effusions with lower lung atelectasis/possible pneumonia Thoracentesis was considered on the right secondary to volume of effusion, however patient is currently on Lovenox and Plavix and there are no secondary signs of empyema/infection. This could still be considered if he does not improve with diuretics. (3) Atrial fibrillation with RVR: Currently on amiodarone 400 mg twice a day Blood pressure is still somewhat low, but likely consistent with his ejection fraction being 15% Troponin is consistent with type II elevation Cardiology consultation secondary to significantly low ejection fraction, atrial fibrillation/flutter He is fully anticoagulated currently. (4) COPD (chronic obstructive pulmonary disease): With possible exacerbation. Continue prednisone, nebs (5) Goals of care, counseling/discussion: He would be okay with receiving cardiopulmonary resuscitation in case of arrest. In case he could not make his own decisions names his cousin Irina Sanon as surrogate decision-maker. (6) Congestive heart failure: Consistent with acute systolic congestive heart failure. Continue furosemide to 60 mg IV every 12 hours Fluid restriction initiated Cardiology consultation Plan Recent hospitalization with compression fractures, underwent kyphoplasty due to intractable pain. Consider follow-up assessment and treatment for osteoporosis. PAD. Currently on Plavix Previous history of significant alcohol use. No history of withdrawal. Presented from nursing facility this time where he is at for rehabilitation. HTN. Blood pressure currently low Spinal stenosis with neurogenic claudication Other medical problems as noted in past medical history Full code currently SCDs for DVT prophylaxis given hematuria, Lovenox on hold Attestations Medical Necessity Statement*: Patient requires hot observation for pneumonia, CHF, hematuria, Coding Level of Care Code 08838 Moderate MDM includes number and complexity of problems actively addressed during encounter, amount and/or complexity of data reviewed/ordered and described risk of complication, morbidity or mortality of management as document ed Diagnoses Hematuria R31.9 Community acquired pneumonia J18.9 Atrial fibrillation with RVR I48.91 COPD (chronic obstructive pulmonary disease) J44.9 Goals of care, counseling/discussion Z71.89 Congestive heart failure I50.9
[2022-08-22] MEDS: amoxicillin-clav 875-125 mg Tablet 1 TAB PO (17:46)
[2022-08-22] MEDS: atorvastatin 40 mg Tablet PO (21:24)
[2022-08-23] VITALS (17 sets, daily range): BP systolic 101–147; BP diastolic 59–90; PULSE 49–105; RESP 15–36; TEMP 35.8–36.6; O2SAT 83–100
[2022-08-23] MEDS: FUROsemide 10 mg/mL SDV 4mL 60 MG IVP (02:16)
[2022-08-23 04:03] LABS: Basophils % 0.2 %; Eosinophils % 0.1 %; Hematocrit 41.9 % (42.0-52.0); Hemoglobin 13.8 g/dL (11.7-16.6); Lymphocytes # 1.9 10^3/uL (0.8-4.8); Lymphocytes % 17.5 %; Mean Corpuscular HGB Conc 32.9 g/dL (30.0-36.0); Mean Corpuscular Hemoglobin 32.4 pg (28.0-34.0); Mean Corpuscular Volume 98.4 fl (80-94); Mean Platelet Volume 9.5 fL (7.4-10.4); Monocytes # 0.9 10^3/uL (0.2-0.9); Monocytes % 8.2 %; Neutrophils # 7.82 10^3/uL (1.8-7.7); Neutrophils % 73.2 %; Nucleated Red Blood Cells # 0.1 /100WBC; Nucleated Red Blood Cells % 0.6 %; Platelet Count 573 10^3/cmm (130-400); Red Blood Count 4.26 10^6/uL (4.1-5.3); Red Cell Distribution Width 14.3 % (12.1-15.1); White Blood Count 10.7 10^3/uL (4.0-10.0)
[2022-08-23 04:34] LABS: Magnesium 2.1 mg/dL (1.7-2.3); Phosphorus 3.5 mg/dL (2.5-4.5)
[2022-08-23 04:39] LABS: Anion Gap 18.3 (5-19); Blood Urea Nitrogen 20 mg/dL (8-23); Calcium 9.2 mg/dL (8.5-10.5); Carbon Dioxide 21 mmol/L (22-29); Chloride 101 mmol/L (98-107); Glucose 117 mg/dL (65-115); NT Pro B Type Natriuretic Pept 28624 pg/mL (0-450); Osmolality Calculated 286 mOsm/kg (285-295); Potassium 4.3 mmol/L (3.5-5.1); Sodium 136 mmol/L (136-145)
[2022-08-23] MEDS: pantoprazole 40 mg SDV IVP (05:02)
--- NOTE | 2022-08-23 05:38 | PC.NURSE ---
Patient rod was irrigated x3 throughout the night. Only small clots present. Patient complining of feeling the need to urinate, bladder scan was performed showing 0 in the bladder, rod was adjusted and appeared to be draining adequately.
[2022-08-23] MEDS: budesonide 0.5 mg/2 mL Neb INHALATION ×2 (08:25→21:06)
[2022-08-23] MEDS: ipratropium-albuterol 3 mL Neb INHALATION ×3 (08:25→21:06)
[2022-08-23] MEDS: amoxicillin-clav 875-125 mg Tablet 1 TAB PO ×2 (10:03→18:10)
[2022-08-23] MEDS: amiodarone 200 mg Tablet 400 MG PO ×2 (10:03→18:10)
[2022-08-23] MEDS: potassium chloride ER 20 mEq Tablet 40 MEQ PO (10:04)
[2022-08-23] MEDS: predniSONE 20 mg Tablet PO (10:04)
[2022-08-23] MEDS: clopidogrel 75 mg Tablet PO (10:04)
[2022-08-23] MEDS: spironolactone 25 mg Tablet PO (10:04)
--- NOTE | 2022-08-23 11:15 | PM.PN ---
Subjective Subjective: Patient is feeling better. Says breathing has improved. Vitals/I&O/Wt Last Vital Signs Temp 96.5 F L 08/23/22 04:00 Pulse 92 08/23/22 08:00 Resp 18 08/23/22 08:00 BP 147/81 08/23/22 08:00 Pulse Ox 94 08/23/22 08:00 O2 Del Method 08/23/22 08:00 O2 Flow Rate 2.5 08/23/22 08:00 08/22/22 08/23/22 08/23/22 22:59 06:59 14:59 Intake Total 300 / 660 120 / 120 Output Total 825 / 1425 425 / 1850 Balance -525 / -765 -425 / -1190 120 / 120 Weight last 48 hrs Weight 178 lb 11.2 oz Weight 182 lb 7 oz Physical Exam Narrative: GENERAL: Patient is alert, awake and oriented x3. [] NECK: No jugular vein distension. [] HEENT: No cyanosis. No icterus. No pallor. [] HEART: Tachycardic, irregularly irregular LUNGS: Has bilateral crackles. CENTRAL NERVOUS SYSTEM: Grossly nonfocal. [] EXTREMITIES: Lower extremities with 1+ edema bilaterally. Pulses palpable in the lower extremities, both dorsalis pedis and posterior tibial. [] Urinary Catheter Management: Ahn: Cath Placed During This Visit: yes Reason for Continuing Indwelling Catheter: Acute Urinary Retention or Obstruction Urinary Catheter Date of Insertion: 08/19/22 Urinary Catheter Time of Insertion: 15:20 Data 08/23/22 03:11 08/23/22 03:11 Micro: Microbiology 08/21/22 23:05 Gram Stain - Final Sputum - Expectorated Sputum A&P Assessment and plan (1) Congestive heart failure: Recent drop in LV systolic function. Plan for angiogram once euvolemic. Hematuria has improved but still short of breath. (2) Atrial fibrillation with RVR: Heart rate is better controlled. Continue amiodarone (3) Cardiomyopathy: New onset LV dysfunction. Plan for coronary angiogram. Continue. Close I and Os. (4) Peripheral arterial disease: Continue current therapy. Plan His other problems are COPD Possible pneumonia Recent back surgery Once patient is euvolemic and hematuria clears, he will need coronary angiogram. Attestations Medical Necessity Statement*: Care expected to cross 2 midnights. Coding Level of Care Code Acute Code for Chg Fwd Diagnoses Congestive heart failure I50.9 Atrial fibrillation with RVR I48.91 Cardiomyopathy I42.9 Peripheral arterial disease I73.9
--- NOTE | 2022-08-23 13:12 | P.PN_ITS ---
Subjective Subjective: Patient was upset that angiogram was not done today Spoke with computer technology trainer who is plan for angiogram by tomorrow Patient was eating breakfast this morning He is on level 6 dysphagia diet Vitals/I&O/Wt Last Vital Signs Temp 97.9 F 08/23/22 11:39 Pulse 92 08/23/22 11:39 Resp 25 H 08/23/22 11:39 BP 108/70 08/23/22 11:39 Pulse Ox 98 08/23/22 11:39 O2 Del Method 08/23/22 11:39 O2 Flow Rate 2 08/23/22 11:39 08/22/22 08/23/22 08/23/22 22:59 06:59 14:59 Intake Total 300 / 660 120 / 120 Output Total 825 / 1425 425 / 1850 Balance -525 / -765 -425 / -1190 120 / 120 Weight last 48 hrs Weight 81.057 kg Weight 82.752 kg Physical Exam Narrative: Patient eating breakfast Hemodynamically stable Awake and alert Agitated On supplemental oxygen 2 L Crackles noted at the base of the lungs Abdomen soft Ahn catheter with dark yellow-colored urine Urinary Catheter Management: Ahn: Cath Placed During This Visit: yes Reason for Continuing Indwelling Catheter: Acute Urinary Retention or Obstruction Urinary Catheter Date of Insertion: 08/19/22 Urinary Catheter Time of Insertion: 15:20 Data 08/23/22 03:11 08/23/22 03:11 Micro: Microbiology 08/22/22 08:35 Urine Culture - Preliminary Urine,Clean Catch 08/21/22 23:05 Gram Stain - Final Sputum - Expectorated Sputum A&P Assessment and plan (1) Hematuria: (2) HTN (hypertension): (3) Peripheral arterial disease: (4) Cardiomyopathy: (5) Goals of care, counseling/discussion: (6) COPD (chronic obstructive pulmonary disease): (7) Congestive heart failure: (8) Community acquired pneumonia: (9) Atrial fibrillation with RVR: Plan Acute hypoxia related to pneumonia CHF exacerbation We will do home O2 eval before discharge I will discontinue IV diuretics today Continue Augmentin Afebrile Discontinue steroids Systolic CHF exacerbation Discontinue IV diuresis switch to p.o. Severe drop in ejection fraction, for cardiomyopathy will need coronary angiogram which is planned for tomorrow Discontinue steroids Continue potassium with 20 mg of Lasix Patient is going for angiogram we can resume Lovenox therapeutic Intermittent A-fib, patient is already on amiodarone, planning to cut back to 200 twice a day regimen, at home patient was taking Cardizem 120 mg daily Patient has history of alcohol abuse as well no active signs of withdrawal Spoke with the computer technology trainer Attestations Medical Necessity Statement*: Continue medical management Diagnoses Hematuria R31.9 HTN (hypertension) I10 Peripheral arterial disease I73.9 Cardiomyopathy I42.9 Goals of care, counseling/discussion Z71.89 COPD (chronic obstructive pulmonary disease) J44.9 Congestive heart failure I50.9 Community acquired pneumonia J18.9 Atrial fibrillation with RVR I48.91
[2022-08-23] MEDS: atorvastatin 40 mg Tablet PO (20:39)
[2022-08-23] MEDS: acetaminophen 325 mg Tablet 650 MG PO (20:39)
[2022-08-23] MEDS: trazodone 50 mg Tablet 25 MG PO (20:39)
[2022-08-23] MEDS: guaiFENesin 100 mg/5 mL UDC 10 mL 200 MG PO (20:40)
--- NOTE | 2022-08-23 21:15 | PC.NURSE ---
Spoke with regarding plan for patients cath tomorrow. said to make the patient NPO after midnight and he will see him in the morning to see if his repiratory status will allow for the patient to undergo cardiac cath. No other orders at this time.
[2022-08-24] VITALS (16 sets, daily range): BP systolic 106–146; BP diastolic 69–97; PULSE 84–114; RESP 17–26; TEMP 35.7–36.5; O2SAT 85–100
[2022-08-24 05:11] LABS: Basophils % 0.2 %; Eosinophils % 0.2 %; Hemoglobin 13.2 g/dL (11.7-16.6); Lymphocytes # 1.6 10^3/uL (0.8-4.8); Lymphocytes % 18.2 %; Mean Corpuscular HGB Conc 32.2 g/dL (30.0-36.0); Mean Corpuscular Hemoglobin 31.3 pg (28.0-34.0); Mean Corpuscular Volume 97.2 fl (80-94); Mean Platelet Volume 9.3 fL (7.4-10.4); Monocytes # 0.7 10^3/uL (0.2-0.9); Monocytes % 7.7 %; Nucleated Red Blood Cells # 0.1 /100WBC; Nucleated Red Blood Cells % 0.7 %; Platelet Count 573 10^3/cmm (130-400); Red Blood Count 4.22 10^6/uL (4.1-5.3); Red Cell Distribution Width 14.3 % (12.1-15.1); White Blood Count 8.8 10^3/uL (4.0-10.0)
[2022-08-24 05:41] LABS: Anion Gap 15.3 (5-19); Blood Urea Nitrogen 24 mg/dL (8-23); Calcium 9.1 mg/dL (8.5-10.5); Carbon Dioxide 24 mmol/L (22-29); Chloride 100 mmol/L (98-107); Glucose 99 mg/dL (65-115); NT Pro B Type Natriuretic Pept 24460 pg/mL (0-450); Osmolality Calculated 284 mOsm/kg (285-295); Phosphorus 3.3 mg/dL (2.5-4.5); Potassium 4.3 mmol/L (3.5-5.1); Sodium 135 mmol/L (136-145)
[2022-08-24] MEDS: pantoprazole 40 mg SDV IVP (05:49)
--- NOTE | 2022-08-24 06:26 | PM.PN ---
Subjective Subjective: Patient is awaiting coronary angiogram No overnight events Requiring 2 L of oxygen Vitals/I&O/Wt Last Vital Signs Temp 96.5 F L 08/24/22 04:00 Pulse 96 08/24/22 04:00 Resp 17 08/24/22 04:00 BP 106/69 08/24/22 04:00 Pulse Ox 92 08/24/22 04:00 O2 Del Method 08/24/22 04:00 O2 Flow Rate 2 08/24/22 04:00 08/23/22 08/23/22 08/24/22 14:59 22:59 06:59 Intake Total 120 / 120 450 / 570 Output Total 550 / 550 150 / 700 Balance 120 / 120 -100 / 20 -150 / -130 Weight last 48 hrs Weight 78.698 kg Weight 81.057 kg Physical Exam Narrative: Requiring 2 L of oxygen Awake and alert Hemodynamically stable Bilateral breath sounds with mild crackles Abdomen soft Euvolemic Ahn catheter with dark urine no signs of hematuria Urinary Catheter Management: Ahn: Cath Placed During This Visit: yes Reason for Continuing Indwelling Catheter: Acute Urinary Retention or Obstruction Urinary Catheter Date of Insertion: 08/19/22 Urinary Catheter Time of Insertion: 15:20 Data 08/24/22 04:32 08/24/22 04:32 Micro: Microbiology 08/19/22 01:53 Blood Culture - Final Blood NO GROWTH AFTER 5 DAYS 08/19/22 01:40 Blood Culture - Final Blood NO GROWTH AFTER 5 DAYS 08/21/22 23:05 Gram Stain - Final Sputum - Expectorated Sputum Sputum Culture - Preliminary 08/22/22 08:35 Urine Culture - Preliminary Urine,Clean Catch A&P Assessment and plan (1) Hematuria: (2) HTN (hypertension): (3) Peripheral arterial disease: (4) Cardiomyopathy: (5) Goals of care, counseling/discussion: (6) COPD (chronic obstructive pulmonary disease): (7) Community acquired pneumonia: (8) Atrial fibrillation with RVR: Plan Acute hypoxia related to pneumonia and CHF Steroids discontinued Will require home O2 eval before discharge Systolic CHF exacerbation: Patient could not lay flat for the angiogram I will change his diuretics to IV again repeat chest x-ray this morning BNP 24,000 however clinically does not look fluid overloaded, Intermittent A-fib currently heart rate is well controlled, for intermittent A-fib he will require Eliquis at the time of discharge Severe cardiomyopathy: Awaiting coronary angiogram today I will let patient eat angiogram was canceled because he was not able to lay flat he was using his respiratory sensory muscles as per the tray casting machine operator, will need some more time with diuresis No signs of alcohol withdrawal Hematuria: Resolved Hemoglobin stable Attestations Medical Necessity Statement*: Patient will be discharged back to the facility once done with a coronary angiogram Diagnoses Hematuria R31.9 HTN (hypertension) I10 Peripheral arterial disease I73.9 Cardiomyopathy I42.9 Goals of care, counseling/discussion Z71.89 COPD (chronic obstructive pulmonary disease) J44.9 Community acquired pneumonia J18.9 Atrial fibrillation with RVR I48.91
[2022-08-24] MEDS: budesonide 0.5 mg/2 mL Neb INHALATION ×2 (08:17→19:40)
[2022-08-24] MEDS: ipratropium-albuterol 3 mL Neb INHALATION ×3 (08:17→19:40)
[2022-08-24] MEDS: potassium chloride ER 20 mEq Tablet 40 MEQ PO (09:16)
[2022-08-24] MEDS: spironolactone 25 mg Tablet PO (09:16)
[2022-08-24] MEDS: amiodarone 200 mg Tablet 400 MG PO ×2 (09:18→18:15)
[2022-08-24] MEDS: amoxicillin-clav 875-125 mg Tablet 1 TAB PO ×2 (09:18→18:15)
[2022-08-24] MEDS: FUROsemide 20 mg Tablet PO (09:19)
--- NOTE | 2022-08-24 09:45 | PM.PN ---
Subjective Subjective: Patient was brought to pathology laboratory director but was unable to lay down secondary to breathing difficulty and desat. Procedure was cancelled. He says breathing has improved. Vitals/I&O/Wt Last Vital Signs Temp 97.7 F 08/24/22 08:00 Pulse 85 08/24/22 08:22 Resp 18 08/24/22 08:00 BP 114/84 08/24/22 08:00 Pulse Ox 98 08/24/22 08:00 O2 Del Method 08/24/22 08:00 O2 Flow Rate 3 08/24/22 08:00 08/23/22 08/24/22 08/24/22 22:59 06:59 14:59 Intake Total 450 / 570 0 / 0 Output Total 550 / 550 150 / 700 Balance -100 / 20 -150 / -130 0 / 0 Weight last 48 hrs Weight 173 lb 8 oz Weight 178 lb 11.2 oz Physical Exam Narrative: GENERAL: Patient is alert, awake and oriented x3. [] NECK: No jugular vein distension. [] HEENT: No cyanosis. No icterus. No pallor. [] HEART: Tachycardic, irregularly irregular LUNGS: Has bilateral crackles. CENTRAL NERVOUS SYSTEM: Grossly nonfocal. [] EXTREMITIES: Lower extremities with 1+ edema bilaterally. Pulses palpable in the lower extremities, both dorsalis pedis and posterior tibial. [] Urinary Catheter Management: Ahn: Cath Placed During This Visit: yes Reason for Continuing Indwelling Catheter: Acute Urinary Retention or Obstruction Urinary Catheter Date of Insertion: 08/19/22 Urinary Catheter Time of Insertion: 15:20 Data 08/24/22 04:32 08/24/22 04:32 Micro: Microbiology 08/19/22 01:53 Blood Culture - Final Blood NO GROWTH AFTER 5 DAYS 08/19/22 01:40 Blood Culture - Final Blood NO GROWTH AFTER 5 DAYS 08/21/22 23:05 Gram Stain - Final Sputum - Expectorated Sputum Sputum Culture - Preliminary 08/22/22 08:35 Urine Culture - Preliminary Urine,Clean Catch A&P Assessment and plan (1) Congestive heart failure: We had planned to perform coronary angiogram but he is not able to tolerate laying flat for the procedure. He was desatting and procedure was canceled. We will need further diuresis. Obtain chest x-ray. (2) Atrial fibrillation with RVR: Heart rate is better controlled. Continue amiodarone (3) Cardiomyopathy: New onset LV dysfunction. May need further diuresis. Close I and Os. (4) Peripheral arterial disease: Continue current therapy. Plan His other problems are COPD Possible pneumonia Recent back surgery We will have a discussion with the patient when to proceed with ischemic work-up versus medical treatment. Attestations Medical Necessity Statement*: Care expected to cross 2 midnights. Coding Level of Care Code Acute Code for [facility] Diagnoses Congestive heart failure I50.9 Atrial fibrillation with RVR I48.91 Cardiomyopathy I42.9 Peripheral arterial disease I73.9
--- NOTE | 2022-08-24 09:50 | XR_ITS ---
WS: [id number] Exam: XR chest 1V portable [id number] Date/Time of Exam: 08/24/2022 10:08 AM Reason For Exam: sob Comparison 08/19/2022. Bibasal pleural effusions show significant improvement. Improved left basal infiltrate. Persistent ri ght basal infiltrate shows little change. No pneumothorax. The heart is enlarged but unchanged in siz e. The mediastinum is normal in contour. Bony structures are intact. Monitoring leads superimpose the chest. XR/XR chest 1V portable [id number] IMPRESSION: 1. Improved bilateral pleural effusions. 2. Improved infiltrates in the left base. 3. Right basal infiltrate showing little change.
[2022-08-24] MEDS: FUROsemide 10 mg/mL SDV 2mL 20 MG IVP ×2 (10:24→20:14)
--- NOTE | 2022-08-24 10:35 | PC.SOCIAL ---
Imm update Imm updated with patient at bedside. Copy of page 2 provided. Patient verbalized understanding. Copy in chart initialed, dated and timed.
[2022-08-24] MEDS: enoxaparin 80 mg/0.8 mL Syringe SUBCUT (18:15)
[2022-08-24] MEDS: trazodone 50 mg Tablet 25 MG PO (20:14)
[2022-08-24] MEDS: atorvastatin 40 mg Tablet PO (20:14)
--- NOTE | 2022-08-24 20:18 | PC.NURSE ---
Patient yelling at tv at time. Patient seems more confused this evening. Patient has history of ETOH. Informed Dr Esposito. Will continue to monitor.
--- NOTE | 2022-08-24 20:58 | PC.NURSE ---
Patient becoming more confused, restless and asking for his beer. Patient pulling at telemetry and trying to get out of bed. Patient does not remember being in the hospital. Informed Dr Esposito and received order for Zyprexa 2.5mg IM times one dose now. RBVO
[2022-08-24] MEDS: OLANZapine 10 mg VIAL 2.5 MG IM (21:07)
--- NOTE | 2022-08-24 22:23 | PC.NURSE ---
Patient continues to have increased confusion, kicking legs, pulling at rod and telemetry. Informed Dr Esposito and received telephone order for Zyprexa 5mg IM once.
[2022-08-24] MEDS: OLANZapine 10 mg VIAL 5 MG IM (22:34)
--- NOTE | 2022-08-24 23:11 | PC.NURSE ---
Patient continues to be very restless. Patient attempting to get out of bed and pulling at rod. Patient SpO2 is at 93% on 3 L NC, sounds wet on auscultation. Patient was given lasix as ordered and documented. Will continue to monitor.
[2022-08-25] VITALS (15 sets, daily range): BP systolic 94–123; BP diastolic 54–80; PULSE 72–100; RESP 15–24; TEMP 36.2–37.1; O2SAT 87–98
--- NOTE | 2022-08-25 02:28 | PC.NURSE ---
Patient was able to rest for ~3-4 hours. Patient now trying to get out of bed, is restless and confused. Patient re-directable at this time. Repositioned for comfort. Will continue to monitor
[2022-08-25] MEDS: ipratropium-albuterol 3 mL Neb INHALATION ×4 (02:52→20:00)
--- NOTE | 2022-08-25 02:55 | PC.NURSE ---
Addendum entered by Ani Millard RN 08/25/22 03:12: Dr Esposito called with order for Ativan 1mg IVP x one dose. RBVO. Administered as ordered and documented. Original Note: This patient is becoming more confused. He is getting out of bed. Pulling at rod. I irrigated this and repositioned for comfort. Patient will not leave tele or pulse ox in place. Zyprexa does not seem to help very much. He keeps looking for his beer. Patient receiving breathing tx at this time. Having to sit with patient to replace this. He does not want to keep his NC or the treatment mask in place. Informed Dr Esposito. No orders presently. Will continue to monitor.
[2022-08-25] MEDS: LORazepam 2 mg/mL INJ 1 mL 1 MG IVP (03:05)
[2022-08-25] MEDS: enoxaparin 80 mg/0.8 mL Syringe SUBCUT ×2 (03:05→17:26)
[2022-08-25] MEDS: pantoprazole 40 mg SDV IVP (03:05)
[2022-08-25 04:53] LABS: Basophils % 0.2 %; Eosinophils % 0.2 %; Hematocrit 36.2 % (42.0-52.0); Hemoglobin 11.7 g/dL (11.7-16.6); Lymphocytes # 1.6 10^3/uL (0.8-4.8); Lymphocytes % 18.7 %; Mean Corpuscular HGB Conc 32.3 g/dL (30.0-36.0); Mean Corpuscular Hemoglobin 31.5 pg (28.0-34.0); Mean Corpuscular Volume 97.6 fl (80-94); Mean Platelet Volume 9.5 fL (7.4-10.4); Monocytes # 0.6 10^3/uL (0.2-0.9); Monocytes % 7.4 %; Neutrophils # 6.24 10^3/uL (1.8-7.7); Neutrophils % 72.9 %; Nucleated Red Blood Cells % 0.5 %; Platelet Count 482 10^3/cmm (130-400); Red Blood Count 3.71 10^6/uL (4.1-5.3); Red Cell Distribution Width 14.3 % (12.1-15.1); White Blood Count 8.6 10^3/uL (4.0-10.0)
[2022-08-25 05:16] LABS: Anion Gap 14.3 (5-19); Blood Urea Nitrogen 23 mg/dL (8-23); Calcium 8.5 mg/dL (8.5-10.5); Carbon Dioxide 23 mmol/L (22-29); Chloride 105 mmol/L (98-107); Creatinine Clr Calc Pharmacy 51.3189; Glucose 99 mg/dL (65-115); Osmolality Calculated 290 mOsm/kg (285-295); Potassium 4.3 mmol/L (3.5-5.1); Sodium 138 mmol/L (136-145)
[2022-08-25] MEDS: budesonide 0.5 mg/2 mL Neb INHALATION ×2 (07:26→20:01)
--- NOTE | 2022-08-25 07:39 | PM.PN ---
Subjective Subjective: Patient is sleepy today. No chest pain. Vitals/I&O/Wt Last Vital Signs Temp 98.7 F 08/25/22 07:37 Pulse 77 08/25/22 07:37 Resp 15 08/25/22 07:37 BP 108/65 08/25/22 07:37 Pulse Ox 97 08/25/22 07:37 O2 Del Method 08/25/22 07:37 O2 Flow Rate 1.5 08/25/22 07:29 08/24/22 08/25/22 08/25/22 22:59 06:59 14:59 Output Total 300 / 300 275 / 575 Balance -300 / -300 -275 / -575 Weight last 48 hrs Weight 182 lb 4.8 oz Weight 173 lb 8 oz Physical Exam Narrative: GENERAL: Patient is alert, awake and oriented x3. [] NECK: No jugular vein distension. [] HEENT: No cyanosis. No icterus. No pallor. [] HEART: Regular S1 and S2. No murmur, rub or gallop. [] LUNGS: Clear to auscultate bilaterally. [] CENTRAL NERVOUS SYSTEM: Grossly nonfocal. [] EXTREMITIES: Lower extremities with 1+ edema Urinary Catheter Management: Ahn: Cath Placed During This Visit: yes Reason for Continuing Indwelling Catheter: Accurate Measurement of Urinary Output in Critically Ill Patients Urinary Catheter Date of Insertion: 08/19/22 Urinary Catheter Time of Insertion: 15:20 Data 08/25/22 04:15 08/25/22 04:15 Micro: Microbiology 08/21/22 23:05 Gram Stain - Final Sputum - Expectorated Sputum Sputum Culture - Final 08/22/22 08:35 Urine Culture - Final Urine,Clean Catch A&P Assessment and plan (1) Congestive heart failure: Continue diuresis. Patient could not tolerate laying down flat for angiogram. (2) Atrial fibrillation with RVR: Heart rate is better controlled. Continue amiodarone (3) Cardiomyopathy: New onset LV dysfunction. May need further diuresis. Close I and Os. (4) Peripheral arterial disease: Continue current therapy. Plan His other problems are COPD Possible pneumonia Recent back surgery We will have a discussion with the patient when to proceed with ischemic work-up versus medical treatment. Attestations Medical Necessity Statement*: Care expected to cross 2 midnights. Coding Level of Care Code Acute Code for Chg Fwd Diagnoses Congestive heart failure I50.9 Atrial fibrillation with RVR I48.91 Cardiomyopathy I42.9 Peripheral arterial disease I73.9
--- NOTE | 2022-08-25 09:50 | PM.PN ---
Subjective Subjective: Patient was agitated overnight required antipsychotics and sedatives to calm him down This morning he is on 3 L X-ray showing improvement of edema and effusion as compared to previous x-rays however showing right-sided persistent pneumonia Requested LifeVest Vitals/I&O/Wt Last Vital Signs Temp 98.7 F 08/25/22 07:37 Pulse 77 08/25/22 07:37 Resp 15 08/25/22 07:37 BP 108/65 08/25/22 07:37 Pulse Ox 97 08/25/22 07:37 O2 Del Method 08/25/22 07:37 O2 Flow Rate 1.5 08/25/22 07:29 08/24/22 08/25/22 08/25/22 22:59 06:59 14:59 Output Total 300 / 300 275 / 575 Balance -300 / -300 -275 / -575 Weight last 48 hrs Weight 82.69 kg Weight 78.698 kg Physical Exam Narrative: Patient clinically looks euvolemic Currently on 3 L Variable S1-S2 Heart rate 77 Blood pressure stable non Focal neuro exam Laying supine No active shortness of breath or chest pain No audible stridor or wheezing Urinary Catheter Management: Ahn: Cath Placed During This Visit: yes Reason for Continuing Indwelling Catheter: Accurate Measurement of Urinary Output in Critically Ill Patients Urinary Catheter Date of Insertion: 08/19/22 Urinary Catheter Time of Insertion: 15:20 Data 08/25/22 04:15 08/25/22 04:15 Micro: Microbiology 08/21/22 23:05 Gram Stain - Final Sputum - Expectorated Sputum Sputum Culture - Final 08/22/22 08:35 Urine Culture - Final Urine,Clean Catch A&P Assessment and plan (1) Cardiomyopathy: (2) Hematuria: (3) HTN (hypertension): (4) Peripheral arterial disease: (5) Goals of care, counseling/discussion: (6) COPD (chronic obstructive pulmonary disease): (7) Congestive heart failure: (8) Community acquired pneumonia: (9) Atrial fibrillation with RVR: Plan Severe cardiomyopathy with reduction in EF Patient could not lay supine for angiogram Procedure has been delayed X-ray showing improvement of pulm edema and infiltrates other than right lower lobe He has been getting IV diuresis Inadequate urine output documented Patient is laying supine currently on 3 L No signs of hemidiaphragm to explain shortness of breath on laying flat Right lower lobe infiltrate Concern for aspiration Currently on Augmentin Afebrile A-fib without RVR I will decrease the dose of amiodarone to 200 mg twice a day Cardiomyopathy: Requested LifeVest Agitation Check UA Afebrile Received antipsychotics and sedatives overnight Full code Cardiac diet We will touch base with the flame cutting supervisor DVT prophylaxis covered due to therapeutic Lovenox Attestations Medical Necessity Statement*: Continue medical management Diagnoses Cardiomyopathy I42.9 Hematuria R31.9 HTN (hypertension) I10 Peripheral arterial disease I73.9 Goals of care, counseling/discussion Z71.89 COPD (chronic obstructive pulmonary disease) J44.9 Congestive heart failure I50.9 Community acquired pneumonia J18.9 Atrial fibrillation with RVR I48.91
[2022-08-25] MEDS: FUROsemide 10 mg/mL SDV 2mL 20 MG IVP (11:21)
[2022-08-25 12:34] LABS: Add Urine Microscopic? YES; Bilirubin Urine 1+ (Negative); Blood Urine 3+ (Negative); Glucose Urine UA Norm (Normal); Ketones Urine Negative (Negative); Leukocyte Esterase Urine Trace (Negative); Nitrate Urine Negative (Negative); Protein Urine 3+ (Negative); RBC Urine >100 /hpf (0-2); Specific Gravity, Urine 1.025 (1.005-1.030); Urine Appearance Cloudy (CLEAR); Urine Color Amber (Yellow); Urobilinogen Urine 1 mg/dL (Negative); pH Urine 5 (5-7)
[2022-08-25 12:35] LABS: Add Urine Culture? Yes; Amorphous Sediment Urine 1+ /hpf; Bacteria Urine 1+ /hpf; Squamous Epithelial Cell Urine 0-4 /hpf (0-5)
--- NOTE | 2022-08-25 12:38 | PC.OT ---
OT TREATMENT ATTEMPTED THIS A.M. PATIENT IS SLEEPING SOUNDLY AND DOES NOT AWAKEN. WILL ATTEMPT AGAIN AT A LATER TIME.
--- NOTE | 2022-08-25 15:12 | PC.OT ---
OT TREATMENT ATTEMPTED AGAIN IN P.M. PATIENT CONTINUES TO SLEEP SOUNDLY. WILL ATTEMPT AGAIN TOMORROW.
[2022-08-25] MEDS: amoxicillin-clav 875-125 mg Tablet 1 TAB PO (17:25)
[2022-08-25] MEDS: amiodarone 200 mg Tablet PO (17:26)
[2022-08-25] MEDS: trazodone 50 mg Tablet 25 MG PO (20:36)
[2022-08-25] MEDS: atorvastatin 40 mg Tablet PO (20:37)
[2022-08-26] VITALS (15 sets, daily range): BP systolic 93–115; BP diastolic 63–77; PULSE 75–121; RESP 13–29; TEMP 36.4–36.6; O2SAT 91–100
[2022-08-26] MEDS: ipratropium-albuterol 3 mL Neb INHALATION ×4 (01:14→20:39)
[2022-08-26] MEDS: pantoprazole 40 mg SDV IVP (03:31)
--- NOTE | 2022-08-26 03:37 | PC.NURSE ---
Patient has gross hematuria this morning. Patient to receive Lovenox 80mg SQ at this time. Informed Dr Esposito and received instruction to hold this am dose. RBVO
[2022-08-26] MEDS: budesonide 0.5 mg/2 mL Neb INHALATION ×2 (07:29→20:39)
[2022-08-26] MEDS: amiodarone 200 mg Tablet PO ×2 (08:32→17:16)
[2022-08-26] MEDS: spironolactone 25 mg Tablet PO (08:32)
[2022-08-26] MEDS: potassium chloride ER 20 mEq Tablet 40 MEQ PO (08:32)
[2022-08-26] MEDS: cefTRIAXone 1,000 MG in sodium chloride 0.9% (plus) 50 ML 100 MG IV (08:36)
--- NOTE | 2022-08-26 08:39 | CT_ITS ---
WS: [id number] CT ABDOMEN PELVIS TECHNIQUE: Noncontrast CT of the abdomen and pelvis with coronal and sagittal reformatted images. CLINICAL INFORMATION: hematuria COMPARISON: None. DLP: 675.[address] scans at [facility] use at least one of these dose optimization techniques: automated e xposure control; mA and/or kV adjustment per patient size (includes targeted exams where dose is matc hed to clinical indication); or iterative reconstruction. FINDINGS: Small moderate RIGHT and small LEFT pleural effusions with compressive atelectasis in the lung bases RIGHT greater than LEFT. Normal GE junction. Splenic granulomas. Fatty atrophy of the pancreas. Adren al glands are normal. Slightly cirrhotic configuration to the liver. Aortic calcification. Normal anne marie iber abdominal aorta. Dense vascular calcification. Dense iliac calcification. No hydronephrosis in e ither kidney. Ahn catheter in place. Mild bilateral renal atrophy. No obstructing renal or ureteral calculi. Air- fluid level in the bladder. Mild diffuse bladder wall thickening can be seen with cystitis. Prostate measures 4.1 cm. No evidence of high-grade small or large bowel obstruction. Food products in a distended stomach. A few air-fluid levels in the transverse colon. Mild diffuse julieta dy wall anasarca. Multilevel compression fractures in the lumbar spine with kyphoplasty changes. CT/CT abdomen pelvis wo con [id number] IMPRESSION: 1. No hydronephrosis in either kidney. Mild bilateral renal cortical atrophy. No hydronephrosis. 2. Air-fluid level in the bladder with Ahn catheter. Mild bladder wall thick ening. 3. Prostate measures 4.1 cm in maximum dimension. 4. Small moderate RIGHT and small LEFT pleural effusions with compressive atel ectasis in the lung bases.
--- NOTE | 2022-08-26 08:48 | P.PN_ITS ---
Subjective Subjective: This morning, hematuria was reported last night I will request CT abdomen pelvis without contrast and after I see the report we will consult Dr. Saez Gross hematuria noted For UTI he was started on ceftriaxone yesterday Patient is on 2 L nasal cannula Adequate urine output Clinically looks euvolemic He is agitated because his angiogram has been postponed again Vitals/I&O/Wt Last Vital Signs Temp 97.8 F 08/26/22 07:42 Pulse 75 08/26/22 07:45 Resp 29 H 08/26/22 07:42 BP 100/65 08/26/22 07:42 Pulse Ox 94 08/26/22 07:42 O2 Del Method 08/26/22 07:42 O2 Flow Rate 1.5 08/26/22 07:42 08/25/22 08/26/22 08/26/22 22:59 06:59 14:59 Intake Total 320 / 320 360 / 680 Output Total 1025 / 1025 600 / 1625 Balance -705 / -705 -240 / -945 Weight last 48 hrs Weight 86.239 kg Weight 82.69 kg Physical Exam Narrative: Euvolemic gross hematuria in the bag Variable S1-S2 Abdomen soft Agitated Able to follow commands GCS 15 Nonfocal neuro exam Currently on 2 L No acute distress Urinary Catheter Management: Ahn: Cath Placed During This Visit: yes Reason for Continuing Indwelling Catheter: Acute Urinary Retention or Obstruction Urinary Catheter Date of Insertion: 08/19/22 Urinary Catheter Time of Insertion: 15:20 Data 08/25/22 04:15 08/25/22 04:15 A&P Assessment and plan (1) Cardiomyopathy: (2) Hematuria: (3) HTN (hypertension): (4) Peripheral arterial disease: (5) Goals of care, counseling/discussion: (6) COPD (chronic obstructive pulmonary disease): (7) Atrial fibrillation with RVR: (8) UTI (urinary tract infection): Plan Recurrent hematuria recurrent hematuria Requested CT abdomen pelvis without contrast Most likely will consult Dr. Maher today, will update Dr. Saez today For UTI started ceftriaxone Cardiomyopathy Patient could not lay flat angiogram has been postponed, today because of hem aturia this has been delayed as well Systolic CHF without acute exacerbation adequate urine output Clinically euvolemic Acute hypoxia related to pneumonia and CHF Currently on ceftriaxone We will continue Augmentin for aspiration pneumonia LifeVest has been requested Agitation: Improved Likely related to UTI A-fib without RVR, will discontinue therapeutic Lovenox because of hematuria Full code Cardiac diet DVT prophylaxis on hold Attestations Medical Necessity Statement*: Continue medical continue medical management Diagnoses Cardiomyopathy I42.9 Hematuria R31.9 HTN (hypertension) I10 Peripheral arterial disease I73.9 Goals of care, counseling/discussion Z71.89 COPD (chronic obstructive pulmonary disease) J44.9 Atrial fibrillation with RVR I48.91 UTI (urinary tract infection) N39.0
--- NOTE | 2022-08-26 08:55 | PC.SOCIAL ---
IMM update IMM updated with patient. Copy Pg 2 provided. Verbalized an understanding. Initialled, dated, timed, and placed in chart.
[2022-08-26] MEDS: amoxicillin-clav 875-125 mg Tablet 1 TAB PO ×2 (09:19→17:15)
[2022-08-26 09:45] LABS: Hematocrit 41.5 % (42.0-52.0); Hemoglobin 13.3 g/dL (11.7-16.6)
--- NOTE | 2022-08-26 12:09 | PC.NURSE ---
manually irrigated rod catheter with 60 cc. small clots noted.
--- NOTE | 2022-08-26 16:30 | PC.NURSE ---
Manual irrigation in the rod catheter 60 cc irrigated in the rod cath. order received to remove rod catheter. DC rod cath. tip intact. pt tolerated well. emptied 520 cc in the rod bag. tab brief and chux pad applied.
--- NOTE | 2022-08-26 17:14 | PM.PN ---
Subjective Subjective: Patient still had hematuria. No chest pain. Breathing is still labored. Vitals/I&O/Wt Last Vital Signs Temp 97.8 F 08/26/22 07:42 Pulse 87 08/26/22 13:38 Resp 17 08/26/22 13:38 BP 105/63 08/26/22 12:08 Pulse Ox 98 08/26/22 13:38 O2 Del Method 08/26/22 13:38 O2 Flow Rate 1.5 08/26/22 07:42 08/26/22 08/26/22 08/26/22 06:59 14:59 22:59 Intake Total 360 / 680 522 / 522 Output Total 600 / 1625 Balance -240 / -945 522 / 522 Weight last 48 hrs Weight 190 lb 2 oz Weight 182 lb 4.8 oz Physical Exam Narrative: GENERAL: Patient is alert, awake and oriented x3. [] NECK: No jugular vein distension. [] HEENT: No cyanosis. No icterus. No pallor. [] HEART: Regular S1 and S2. No murmur, rub or gallop. [] LUNGS: Clear to auscultate bilaterally. [] CENTRAL NERVOUS SYSTEM: Grossly nonfocal. [] EXTREMITIES: Lower extremities with 1+ edema Urinary Catheter Management: Ahn: Cath Placed During This Visit: yes Reason for Continuing Indwelling Catheter: Acute Urinary Retention or Obstruction Urinary Catheter Date of Insertion: 08/19/22 Urinary Catheter Time of Insertion: 15:20 Data 08/26/22 09:35 08/25/22 04:15 A&P Assessment and plan (1) Congestive heart failure: Continue diuresis. Close I and Os. (2) Atrial fibrillation with RVR: Heart rate is controlled. Continue amiodarone (3) Cardiomyopathy: New onset LV dysfunction. May need further diuresis. Close I and Os. (4) Peripheral arterial disease: Continue current therapy. Plan His other problems are COPD Possible pneumonia Recent back surgery Once patient's breathing status improves, we will proceed with coronary angiogram. I also discussed with him, possibility of medical therapy. Attestations Medical Necessity Statement*: Care expected to cross 2 midnights. Coding Level of Care Code Acute Code for [facility] Diagnoses Congestive heart failure I50.9 Atrial fibrillation with RVR I48.91 Cardiomyopathy I42.9 Peripheral arterial disease I73.9
[2022-08-26] MEDS: acetaminophen 325 mg Tablet 650 MG PO (21:12)
[2022-08-26] MEDS: atorvastatin 40 mg Tablet PO (21:12)
[2022-08-26] MEDS: trazodone 50 mg Tablet 25 MG PO (21:12)
[2022-08-27] VITALS (15 sets, daily range): BP systolic 93–118; BP diastolic 62–79; PULSE 80–97; RESP 17–27; TEMP 36.4–36.6; O2SAT 90–97
[2022-08-27] MEDS: ipratropium-albuterol 3 mL Neb INHALATION ×4 (02:56→20:05)
[2022-08-27 04:22] LABS: Basophils % 0.4 %; Eosinophils # 0.1 10^3/uL (0.0-0.8); Eosinophils % 0.9 %; Hematocrit 39.4 % (42.0-52.0); Hemoglobin 12.7 g/dL (11.7-16.6); Lymphocytes # 1.8 10^3/uL (0.8-4.8); Lymphocytes % 22.7 %; Mean Corpuscular HGB Conc 32.2 g/dL (30.0-36.0); Mean Corpuscular Hemoglobin 32.2 pg (28.0-34.0); Mean Platelet Volume 9.5 fL (7.4-10.4); Monocytes # 0.6 10^3/uL (0.2-0.9); Monocytes % 7.7 %; Neutrophils # 5.28 10^3/uL (1.8-7.7); Neutrophils % 67.7 %; Nucleated Red Blood Cells % 0.3 %; Platelet Count 448 10^3/cmm (130-400); Red Blood Count 3.94 10^6/uL (4.1-5.3); Red Cell Distribution Width 14.7 % (12.1-15.1); White Blood Count 7.8 10^3/uL (4.0-10.0)
[2022-08-27 04:37] LABS: Anion Gap 14.5 (5-19); Blood Urea Nitrogen 15 mg/dL (8-23); Calcium 8.8 mg/dL (8.5-10.5); Carbon Dioxide 24 mmol/L (22-29); Chloride 105 mmol/L (98-107); Glucose 98 mg/dL (65-115); Osmolality Calculated 289 mOsm/kg (285-295); Potassium 4.5 mmol/L (3.5-5.1); Sodium 139 mmol/L (136-145)
[2022-08-27] MEDS: pantoprazole 40 mg SDV IVP (04:53)
[2022-08-27] MEDS: FUROsemide 20 mg Tablet PO (08:05)
[2022-08-27] MEDS: budesonide 0.5 mg/2 mL Neb INHALATION ×2 (08:41→20:05)
[2022-08-27] MEDS: potassium chloride ER 20 mEq Tablet 40 MEQ PO (09:17)
[2022-08-27] MEDS: amoxicillin-clav 875-125 mg Tablet 1 TAB PO ×2 (09:17→17:31)
[2022-08-27] MEDS: amiodarone 200 mg Tablet PO ×2 (09:17→17:31)
[2022-08-27] MEDS: spironolactone 25 mg Tablet PO (09:17)
[2022-08-27] MEDS: cefTRIAXone 1,000 MG in sodium chloride 0.9% (plus) 50 ML 100 MG IV (09:18)
--- NOTE | 2022-08-27 09:33 | PM.CONSULT ---
Providers/Reason For Consult Consulting Physician/Specialty*: Urology/Saez Reason for Consult*: Gross hematuria post catheterization Requesting Physician: Dr. Hernandez Attending Physician: Basim Hernandez MD Primary Care Provider: Sachin Gallagher DO History of Present Illness History of Present Illness Reginald Pelaez is a 82 year old male who was hospitalized on 08/19/2022 for atrial fibrillation with rapid ventricular response. Overall poor health at baseline. Complications requested due to gross hematuria that occurred apparently after catheter was placed. Prior to that point. The catheter was primarily for volume management and not for urinary retention. Further complicated by history of long-term Plavix use. On no BPH type medications at home. He denies a history of urinary retention but states that his stream has slowed down over time. Overall he expressed contentment with the way that he voided. Denies history of recurrent UTIs or gross hematuria prior to this episode Since the catheter has been removed he apparently has been voiding adequately with clear urine. Bladder scan is pending as a PVR. I did review his CT scan that shows mildly enlarged prostate. Catheter was draining his bladder. Bladder wall looked normal. Also reviewed a CT scan from December 2021 without Ahn catheter and bladder and prostate also looked normal at that time. No evidence of upper urinary tract pathology. Review of Systems Const: Denies: fever(s) or chills Eyes: Denies: eye discharge ENMT: Denies: hoarseness Card: Reports: palpitations; Denies: chest pain Resp: Reports: dyspnea and productive cough GI: Denies: abdominal pain or vomiting : Reports: hematuria and other (Chronically decreased force of stream) Musc: Reports: extremity pain and other (Poor blood flow lower extremity with recent revascularization attempt and a) Skin/Breast: Denies: sores Neuro: Denies: Slurred speech present Psych: Denies: anxiety Endo: Denies: flushing Brien/Lymph: Reports: easy bruising All/Imm: Denies: acute wheezing Medications/Allergies Home Medications Medication Instructions Recorded Confirmed Last Taken Type multivitamin 1 tab PO DAILY 01/21/22 08/19/22 01/27/22 07:00 History clopidogrel 75 mg tablet 75 mg PO DAILY #30 tabs 01/23/22 08/19/22 01/26/22 Rx pentoxifylline 400 mg 400 mg PO TID 30 days #90 tabs 04/12/22 08/19/22 Unknown Rx tablet,extended release tramadol 50 mg tablet 50 mg PO BID PRN pain #45 tabs 07/21/22 08/19/22 Unknown Rx albuterol sulfate 90 mcg/actuation 2 puff inhalation Q6H PRN 08/03/22 08/19/22 Unknown History aerosol inhaler (ProAir HFA) Shortness Of Breath ferrous gluconate 324 mg (37.5 mg 324 mg PO DAILY 08/03/22 08/19/22 Unknown History iron) tablet folic acid 1 mg tablet 1 mg PO DAILY 08/03/22 08/19/22 Unknown History potassium chloride 20 mEq 20 meq PO DAILY 08/03/22 08/19/22 Unknown History tablet,extended release cilostazol 50 mg tablet 50 mg PO BID 08/04/22 08/19/22 Unknown History acetaminophen 325 mg tablet 650 mg PO Q6H PRN Pain/fever 08/19/22 08/19/22 Unknown History (Tylenol) bisacodyl 10 mg rectal suppository 10 mg ND DAILY PRN Constipation 08/19/22 08/19/22 Unknown History (Dulcolax (bisacodyl)) diltiazem HCl 120 mg 120 mg PO DAILY 08/19/22 08/19/22 Unknown History tablet,extended release 24 hr furosemide 40 mg tablet (Lasix) 40 mg PO BID 08/19/22 08/19/22 Unknown History hydrocodone 5 mg-acetaminophen 325 1 tab PO Q8H PRN Pain 08/19/22 08/19/22 Unknown History mg tablet magnesium hydroxide 400 mg/5 mL 30 ml PO DAILY PRN Constipation 08/19/22 08/19/22 Unknown History oral suspension (Milk of Magnesia) magnesium oxide 400 mg PO DAILY 08/19/22 08/19/22 Unknown History pantoprazole 40 mg tablet,delayed 40 mg PO DAILY 08/19/22 08/19/22 Unknown History release sodium phosphates 19 gram-7 118 ml ND BEDTIME PRN Constipation 08/19/22 08/19/22 Unknown History gram/118 mL enema (Fleet Enema) trazodone 50 mg tablet 25 mg PO BEDTIME 08/19/22 08/19/22 Unknown History Allergies Allergy/AdvReac Type Severity Reaction Status Date / Time No Known Allergies Allergy Verified 08/19/22 01:07 Current Medications Generic Name Dose Route Start Last Admin Trade Name Freq PRN Reason Stop Dose Admin Acetaminophen 650 mg 08/19/22 05:17 08/26/22 21:12 Acetaminophen 325 Mg Tablet PO 650 mg Q6H PRN Administration Mild/Mod Pain Or Temp >/= 101 Albuterol/Ipratropium 3 ml 08/19/22 08:00 08/27/22 08:41 Ipratropium-Albuterol 3 Ml Neb INHALATION 3 ml Q6H.RESP LINDA Administration Amiodarone HCl 200 mg 08/25/22 10:01 08/27/22 09:17 Amiodarone 200 Mg Tablet PO 200 mg BID LINDA Administration Amoxicillin/Clavulanate Potassium 1 tab 08/26/22 09:00 08/27/22 09:17 Amoxicillin-Clav 875-125 Mg Tablet PO 1 tab BID LINDA Administration Protocol Atorvastatin Calcium 40 mg 08/20/22 21:00 08/26/22 21:12 Atorvastatin 40 Mg Tablet PO 40 mg BEDTIME LINDA Administration Budesonide 0.5 mg 08/19/22 08:00 08/27/22 08:41 Budesonide 0.5 Mg/2 Ml Neb INHALATION 0.5 mg BID.RESPIRATORY LINDA Administration Clopidogrel Bisulfate 75 mg 08/19/22 09:00 08/23/22 10:04 Clopidogrel 75 Mg Tablet PO 75 mg DAILY LINDA Administration Enoxaparin Sodium 80 mg 08/19/22 18:00 08/26/22 03:35 Enoxaparin 80 Mg/0.8 Ml Syringe 1 mg/kg (100 mg) Not Given SUBCUT Q12H LINDA Furosemide 20 mg 08/27/22 08:00 08/27/22 08:05 Furosemide 20 Mg Tablet PO 20 mg DAILY@0800 LINDA Administration Guaifenesin 200 mg 08/21/22 22:49 08/23/22 20:40 Guaifenesin 100 Mg/5 Ml Udc 10 Ml PO 200 mg Q4H PRN Administration COUGH AND CONGESTION Ceftriaxone Sodium 1,000 mg/ 50 mls @ 100 mls/hr 08/26/22 09:00 08/27/22 09:18 Sodium Chloride IV 100 mls/hr DAILY LINDA Administration Protocol Pantoprazole Sodium 40 mg 08/19/22 05:30 08/27/22 04:53 Pantoprazole 40 Mg Sdv IVP 40 mg Q24H LINDA Administration Potassium Chloride 40 meq 08/20/22 09:00 08/27/22 09:17 Potassium Chloride Er 20 Meq Tablet PO 40 meq DAILY LINDA Administration Spironolactone 25 mg 08/20/22 09:00 08/27/22 09:17 Spironolactone 25 Mg Tablet PO 25 mg DAILY LINDA Administration Trazodone HCl 25 mg 08/20/22 22:59 08/26/22 21:12 Trazodone 50 Mg Tablet PO 25 mg BEDTIME PRN Administration INSOMNIA PFSH Acute PFSH: Medical History Amputated toe of left foot discharged from wound care 07/05/22, follows with Dr Brunner Chronic alcohol use Chronic hyponatremia Claudication Compression fx, lumbar spine COPD (chronic obstructive pulmonary disease) Gait instability GERD (gastroesophageal reflux disease) History of nonmelanoma skin cancer History of smoking HTN (hypertension) Intractable back pain 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 Myalgia, multiple sites Nicotine dependence, chewing tobacco, with other nicotine-induced disorders Nodular basal cell carcinoma tip of nose, initial treatment with imiquimod, follows with Dr Gil PAC (premature atrial contraction) Right lower lobe pneumonia Severe peripheral arterial disease Slow urinary stream Spinal stenosis, lumbar region, with neurogenic claudication Surgical History 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 History of hip surgery right hip fracture repair S/P peripheral artery angioplasty with stent placement 12/2021 Left common/External Iliac Artery with 80% stenosis treated with AB ARMADA [id number]. 8.0 x 19 mm Omnilink stent was placed. Left Proximal Superficial Femoral Artery with 80-90 % stenosis treated with AB ARMADA 35 [id number] [id number]. Family History Other No pertinent family history Social History Smoking and tobacco status: current every day smoker smokeless tobacco Smokeless tobacco details: chewless pouches now, former chewing tobacco, former cigarette smoker Alcohol intake: current Alcohol type: hard liquor Lives independently: Yes Household members: none Housing: House Vitals/I&O/Wt Last Vital Signs Temp 97.9 F 08/27/22 08:00 Pulse 80 08/27/22 08:00 Resp 17 08/27/22 08:00 BP 98/64 08/27/22 08:00 Pulse Ox 97 08/27/22 08:00 O2 Del Method 08/27/22 08:00 O2 Flow Rate 1.5 08/26/22 07:42 08/26/22 08/27/22 08/27/22 22:59 06:59 14:59 Intake Total 680 / 1202 520 / 1722 240 / 240 Output Total 620 / 620 550 / 1170 Balance 60 / 582 -30 / 552 240 / 240 Weight last 48 hrs Weight 284 lb 12.8 oz Weight 190 lb 2 oz Physical Exam Const: COMMON NORMALS: no acute distress, average body habitus and patient oriented x3 HENMT: COMMON NORMALS: normocephalic and atraumatic HEAD & SCALP: normocephalic and atraumatic Eye: COMMON NORMALS: no scleral icterus Neck/C-Spine: OTHER: Good range of motion Lymph: LYMPHATIC: no lymphadenopathy noted (Inguinal) Chest: OTHER: All movements Resp: COMMON NORMALS: normal respiratory effort OTHER: Coughing GI: OTHER: Soft, nontender, bladder nondistended. No CVA tenderness : COMMON NORMALS: Yes no CVA tenderness BLADDER/KIDNEY EXAM: Yes no CVA tenderness OTHER: Phallus normal, no lesions. Meatus normal, scrotum grossly normal both testicles descended bilateral without mass or tenderness. Normal epididymis bilaterally. Back/Pelvis: COMMON NORMALS: no CVA tenderness Neuro: COMMON NORMALS: patient oriented x3 Psych: OTHER: Pleasant cooperative exam. Urinary Catheter Management: Ahn: Cath Placed During This Visit: yes, but has since been removed by the nurse Reason for Continuing Indwelling Catheter: Decision to DC Catheter Urinary Catheter Date of Insertion: 08/19/22 Urinary Catheter Time of Insertion: 15:20 Date Urinary Catheter Removed: 08/26/22 Time Urinary Catheter Discontinued: 16:30 Data 08/27/22 03:41 08/27/22 03:41 A&P Assessment and plan (1) Gross hematuria: No history of gross hematuria preceding catheter placement. Apparently has stopped since the catheter was removed. No evidence of any significant uropathology on recent CT scans. Likely exacerbated by Plavix. Would hold on further work-up at this point unless he has recurrence. I did review with him the remaining portion of the work-up that would be recommended for recurrent hematuria. (2) BPH loc w urin obs/LUTS: Decreased force of stream without significant objective findings. He is content. Plan Recommendations: 1. Bladder scan PVR to confirm adequate emptying. Consider TAMSULOSIN 0.4 mg p.o. nightly for persistently elevated PVRs are increasing bladder outlet obstructive symptoms. 2. No further work-up on gross hematuria unless recurrent in the absence of catheter placement. See HPI Consult Attestations Medical Necessity Statement: See attending Coding Level of Care Code Acute Code for [facility] Diagnoses Gross hematuria R31.0 BPH loc w urin obs/LUTS N40.1
--- NOTE | 2022-08-27 10:42 | P.PN_ITS ---
Subjective Subjective: Patient was asking if he could go home after reviewing his progress with associate genetics professor and Dr. Saez plan has been made to go for coronary angiogram on Tuesday Patient most likely will need anesthesia service on Tuesday he might need intubation for coronary angiogram He still sounds congested Patient is stating that he has not voided urine today I have requested nurse to do bladder scan and let me know Patient is able to void urine as of yesterday, patient is stating that his urine color was yellow Ahn catheter removed Appreciate Dr. Saez's recommendations We will add tamsulosin Continue ceftriaxone for UTI Patient is off oxygen doing well His friend was at the bedside Vitals/I&O/Wt Last Vital Signs Temp 97.9 F 08/27/22 08:00 Pulse 80 08/27/22 08:00 Resp 17 08/27/22 08:00 BP 98/64 08/27/22 08:00 Pulse Ox 97 08/27/22 08:00 O2 Del Method 08/27/22 08:00 O2 Flow Rate 1.5 08/26/22 07:42 08/26/22 08/27/22 08/27/22 22:59 06:59 14:59 Intake Total 680 / 1202 520 / 1722 240 / 240 Output Total 620 / 620 550 / 1170 Balance 60 / 582 -30 / 552 240 / 240 Weight last 48 hrs Weight 129.183 kg Weight 86.239 kg Physical Exam Narrative: Patient awake and alert Sounds congested Clinically looks euvolemic however very fatigued and lethargic with poor functional status Currently on room air Crackles at the base of the lungs Abdomen soft Ahn catheter has been removed Pleasant and cooperative GCS 15 Doing well on room air Nonfocal neuro exam Patient was chewing tobacco Urinary Catheter Management: Ahn: Cath Placed During This Visit: yes, but has since been removed by the nurse Reason for Continuing Indwelling Catheter: Decision to DC Catheter Urinary Catheter Date of Insertion: 08/19/22 Urinary Catheter Time of Insertion: 15:20 Date Urinary Catheter Removed: 08/26/22 Time Urinary Catheter Discontinued: 16:30 Data 08/27/22 03:41 08/27/22 03:41 A&P Assessment and plan (1) HTN (hypertension): (2) Congestive heart failure: (3) Community acquired pneumonia: (4) Atrial fibrillation with RVR: (5) Goals of care, counseling/discussion: (6) Cardiomyopathy: (7) Peripheral arterial disease: (8) Hematuria: (9) UTI (urinary tract infection): (10) Gross hematuria: (11) BPH loc w urin obs/LUTS: Plan 82-year-old male who presented with shortness of breath he was diagnosed with community-acquired pneumonia, he recently had kyphoplasty by Dr. May, during this visit echo showed EF of 15% significant reduction of ejection fraction, patient could not lay supine coronary angiogram was postponed, he is being diuresed, he is making adequate urine, patient experienced 2 episodes of hematuria, CT abdomen pelvis did not show any hydronephrosis, Dr. Sanchez was consulted who recommended taking out the catheter which was inserted for urine output monitoring, will add tamsulosin, associate genetics professor recommended coronary angiogram with intubation on Tuesday with help of anesthesia service Acute systolic CHF exacerbation Continue diuresis until Tuesday Severe cardiomyopathy, LifeVest has been requested, patient will go for coronary angiogram on Tuesday as per the cardiology Intermittent A-fib RVR Therapeutic Lovenox discontinued because of hematuria I will resume his Lovenox therapeutic regimen today Hemoglobin remained stable Recurrent hematuria related to Ahn catheter Add tamsulosin Patient Dr. Irwin's recommendation No signs of hydronephrosis or kidney stones In case of recurrent hematuria he is might need cystoscopy but for now we are do ing conservative management UTI: Continue ceftriaxone Aspiration pneumonia: Continue Augmentin Acute hypoxia related to above-mentioned etiologies Off oxygen today doing well on room air Patient recently had kyphoplasty, he came from custodial He is agreeable, very fatigued and lethargic Requiring PT on daily basis Full code Cardiac diet Once ready he will be discharged back to custodial with LifeVest Social dynamics: Lives alone, drinks alcohol Spoke with Dr. Saez and Dr. Arreola Attestations Medical Necessity Statement*: Continue medical management Diagnoses HTN (hypertension) I10 Congestive heart failure I50.9 Community acquired pneumonia J18.9 Atrial fibrillation with RVR I48.91 Goals of care, counseling/discussion Z71.89 Cardiomyopathy I42.9 Peripheral arterial disease I73.9 Hematuria R31.9 UTI (urinary tract infection) N39.0 Gross hematuria R31.0 BPH loc w urin obs/LUTS N40.1
[2022-08-27] MEDS: tamsulosin 0.4 mg Capsule PO (11:35)
--- NOTE | 2022-08-27 14:40 | P.PN_ITS ---
Subjective Subjective: Patient continues to be unchanged clinically. Short of breath. Vitals/I&O/Wt Last Vital Signs Temp 97.9 F 08/27/22 08:00 Pulse 88 08/27/22 14:00 Resp 18 08/27/22 14:00 BP 115/71 08/27/22 12:00 Pulse Ox 96 08/27/22 14:00 O2 Del Method 08/27/22 14:00 O2 Flow Rate 1.5 08/26/22 07:42 08/26/22 08/27/22 08/27/22 22:59 06:59 14:59 Intake Total 680 / 1202 520 / 1722 285 / 285 Output Total 620 / 620 550 / 1170 250 / 250 Balance 60 / 582 -30 / 552 35 / 35 Weight last 48 hrs Weight 284 lb 12.8 oz Weight 190 lb 2 oz Physical Exam Narrative: GENERAL: Patient is alert, awake and oriented x3. [] NECK: No jugular vein distension. [] HEENT: No cyanosis. No icterus. No pallor. [] HEART: Regular S1 and S2. No murmur, rub or gallop. [] LUNGS: Clear to auscultate bilaterally. [] CENTRAL NERVOUS SYSTEM: Grossly nonfocal. [] EXTREMITIES: Lower extremities with 1+ edema Urinary Catheter Management: Ahn: Cath Placed During This Visit: yes, but has since been removed by the nurse Reason for Continuing Indwelling Catheter: Decision to DC Catheter Urinary Catheter Date of Insertion: 08/19/22 Urinary Catheter Time of Insertion: 15:20 Date Urinary Catheter Removed: 08/26/22 Time Urinary Catheter Discontinued: 16:30 Data 08/27/22 03:41 08/27/22 03:41 Micro: Microbiology 08/25/22 11:33 Urine Culture - Preliminary Urine,Clean Catch A&P Assessment and plan (1) Congestive heart failure: Uptitrate diuretics. Can start Lasix 60mg BID and add Metolazone. Plan for coronary angiogram on Tuesday if breathing status improves. Patient unde rstands he may get intubated if breathing status worsens. I have discussed with him, option of medical therapy only. He wants to proceed with ischemic workup. (2) Atrial fibrillation with RVR: Heart rate is controlled. Continue amiodarone. Continue anticoagulation (3) Cardiomyopathy: New onset LV dysfunction. Will need further diuresis. Close I and Os. (4) Peripheral arterial disease: Continue current therapy. Plan His other problems are COPD Possible pneumonia Recent back surgery Once patient's breathing status improves, we will proceed with coronary angiogram. I also discussed with him, possibility of medical therapy. Attestations Medical Necessity Statement*: Care expected to cross 2 midnights. Coding Level of Care Code Acute Code for [facility] Diagnoses Congestive heart failure I50.9 Atrial fibrillation with RVR I48.91 Cardiomyopathy I42.9 Peripheral arterial disease I73.9
[2022-08-27] MEDS: enoxaparin 80 mg/0.8 mL Syringe SUBCUT (17:31)
[2022-08-27] MEDS: trazodone 50 mg Tablet 25 MG PO (19:31)
[2022-08-27] MEDS: atorvastatin 40 mg Tablet PO (19:31)
[2022-08-28] VITALS (17 sets, daily range): BP systolic 99–118; BP diastolic 61–77; PULSE 83–104; RESP 16–29; TEMP 36.3–36.6; O2SAT 85–98
[2022-08-28] MEDS: enoxaparin 80 mg/0.8 mL Syringe SUBCUT ×2 (05:22→17:55)
[2022-08-28] MEDS: pantoprazole 40 mg SDV IVP (05:22)
--- NOTE | 2022-08-28 05:25 | PC.NURSE ---
This RN has followed SN Eleanor during assessments and medication administration. Student used all proper patient identifiers. This RN agrees and verifies all documentation related to these assessments and medication administrations.
[2022-08-28 05:39] LABS: Basophils % 0.4 %; Eosinophils # 0.1 10^3/uL (0.0-0.8); Eosinophils % 1.4 %; Hematocrit 40.9 % (42.0-52.0); Hemoglobin 12.8 g/dL (11.7-16.6); Lymphocytes # 1.4 10^3/uL (0.8-4.8); Lymphocytes % 18.5 %; Mean Corpuscular HGB Conc 31.3 g/dL (30.0-36.0); Mean Corpuscular Hemoglobin 31.2 pg (28.0-34.0); Mean Corpuscular Volume 99.8 fl (80-94); Mean Platelet Volume 9.6 fL (7.4-10.4); Monocytes # 0.6 10^3/uL (0.2-0.9); Monocytes % 7.7 %; Neutrophils # 5.28 10^3/uL (1.8-7.7); Neutrophils % 71.3 %; Nucleated Red Blood Cells % 0.3 %; Platelet Count 430 10^3/cmm (130-400); Red Cell Distribution Width 14.9 % (12.1-15.1); White Blood Count 7.4 10^3/uL (4.0-10.0)
[2022-08-28 05:57] LABS: Anion Gap 13.5 (5-19); Blood Urea Nitrogen 12 mg/dL (8-23); Calcium 8.7 mg/dL (8.5-10.5); Carbon Dioxide 24 mmol/L (22-29); Chloride 105 mmol/L (98-107); Glucose 90 mg/dL (65-115); Osmolality Calculated 285 mOsm/kg (285-295); Potassium 4.5 mmol/L (3.5-5.1); Sodium 138 mmol/L (136-145)
[2022-08-28 07:44] LABS: Iron 47 ug/dL (59-158); NT Pro B Type Natriuretic Pept 12809 pg/mL (0-450); Percent Saturation 21.3 % (20-50); Total Iron Binding Capacity 220 mcg/dl; Unsaturated Iron Binding 173 ug/dL (112-347); Vitamin B12 636 pg/mL (232-1245)
[2022-08-28] MEDS: ipratropium-albuterol 3 mL Neb INHALATION ×3 (07:44→20:25)
[2022-08-28] MEDS: budesonide 0.5 mg/2 mL Neb INHALATION ×2 (07:44→20:24)
[2022-08-28 07:45] LABS: Folate Level 15.2 ng/mL (4.5-32.2)
[2022-08-28] MEDS: cefTRIAXone 1,000 MG in sodium chloride 0.9% (plus) 50 ML 50 MG IV (08:13)
[2022-08-28] MEDS: FUROsemide 10 mg/mL SDV 10mL 60 MG IVP ×2 (08:13→18:49)
[2022-08-28] MEDS: amoxicillin-clav 875-125 mg Tablet 1 TAB PO ×2 (08:15→17:55)
[2022-08-28] MEDS: tamsulosin 0.4 mg Capsule PO (08:15)
[2022-08-28] MEDS: aspirin 81 mg EC Tablet PO (08:15)
[2022-08-28] MEDS: potassium chloride ER 20 mEq Tablet 40 MEQ PO (08:15)
[2022-08-28] MEDS: amiodarone 200 mg Tablet PO ×2 (08:15→17:55)
--- NOTE | 2022-08-28 09:34 | PC.SOCIAL ---
IMM Updated Updated pt on IMM. No questions voiced. Provided pt a copy. Initialed, dated, & timed copy in chart.
--- NOTE | 2022-08-28 12:57 | PM.PN ---
Subjective Subjective: Patiet is sitting up. Son is at bedside. He voices no complaints. Agreeable with plan for Cardiac Cath Tuesday. Medications: Reviewed: Yes Vitals/I&O/Wt Last Vital Signs Temp 97.9 F 08/29/22 05:15 Pulse 81 08/29/22 09:10 Resp 19 H 08/29/22 09:10 BP 96/62 08/29/22 05:15 Pulse Ox 97 08/29/22 09:10 O2 Del Method 08/29/22 09:10 O2 Flow Rate 1.5 08/26/22 07:42 08/28/22 08/29/22 08/29/22 22:59 06:59 14:59 Intake Total 320 / 1030 240 / 1270 530 / 530 Output Total 1500 / 2000 1900 / 3900 1080 / 1080 Balance -1180 / -970 -1660 / -2630 -550 / -550 Weight last 48 hrs Weight 179 lb 1.6 oz Weight 182 lb 6.4 oz Weight 176 lb 9.6 oz Physical Exam Resp: COMMON NORMALS: normal respiratory effort Urinary Catheter Management: Ahn: Cath Placed During This Visit: yes, but has since been removed by the nurse Reason for Continuing Indwelling Catheter: Decision to DC Catheter Urinary Catheter Date of Insertion: 08/19/22 Urinary Catheter Time of Insertion: 15:20 Date Urinary Catheter Removed: 08/26/22 Time Urinary Catheter Discontinued: 16:30 Data 08/29/22 03:45 08/29/22 03:45 Micro: Microbiology 08/25/22 11:33 Urine Culture - Final Urine,Clean Catch A&P Assessment and plan (1) Acute systolic heart failure: (2) Atrial fibrillation with RVR: Plan Continue current medical therapy Attestations Medical Necessity Statement*: Acute CHF with at least 2 MN requirement for management Coding Level of Care Code 66678 Diagnoses Acute systolic heart failure I50.21 Atrial fibrillation with RVR I48.91 Time Spent (min) 16
--- NOTE | 2022-08-28 13:13 | PM.PN ---
Subjective Subjective: Hospital course, labs appreciated. On examination patient sitting up in chair. States he is feeling fine. Denies any nausea, vomiting, headache. States he was able to sleep in the bed yesterday but still not able to lie down flat. Continues to remain on room air. Vitals and labs appreciated. Medications: Reviewed: Yes Vitals/I&O/Wt Last Vital Signs Temp 97.7 F 08/28/22 11:09 Pulse 88 08/28/22 11:09 Resp 20 H 08/28/22 11:09 BP 111/72 08/28/22 11:09 Pulse Ox 95 08/28/22 11:09 O2 Del Method 08/28/22 11:09 O2 Flow Rate 1.5 08/26/22 07:42 08/27/22 08/28/22 08/28/22 22:59 06:59 14:59 Intake Total 145 / 430 240 / 670 710 / 710 Output Total 250 / 500 Balance -105 / -70 240 / 170 710 / 710 Weight last 48 hrs Weight 82.735 kg Weight 80.104 kg Weight 129.183 kg Physical Exam Narrative: General: No acute distress, AO x3, sitting up HEENT: PERRLA, pupils bilaterally equal and reactive Chest: Normal vesicular breath sounds, no added sounds, equal good air entry bilaterally CVS: S1-S2 regular, soft pansystolic murmur radiating to anterior axillary line, no tachycardia, no gallops, no rubs Abdomen: Soft, nontender, no organomegaly, bowel sounds present Neuro: No focal deficits, no facial deformity, AO x3, power 5/5 in all limbs Extremity: Bilateral pitting edema up to knee 1+ Urinary Catheter Management: Ahn: Cath Placed During This Visit: yes, but has since been removed by the nurse Reason for Continuing Indwelling Catheter: Decision to DC Catheter Urinary Catheter Date of Insertion: 08/19/22 Urinary Catheter Time of Insertion: 15:20 Date Urinary Catheter Removed: 08/26/22 Time Urinary Catheter Discontinued: 16:30 Data 08/28/22 05:17 08/28/22 05:17 Micro: Microbiology 08/25/22 11:33 Urine Culture - Final Urine,Clean Catch A&P Assessment and plan (1) Congestive heart failure: (2) Cardiomyopathy: (3) Community acquired pneumonia: (4) Hematuria: (5) UTI (urinary tract infection): (6) HTN (hypertension): (7) Atrial fibrillation with RVR: (8) Peripheral arterial disease: (9) Gross hematuria: (10) BPH loc w urin obs/LUTS: (11) Goals of care, counseling/discussion: Plan Acute systolic CHF exacerbation: Most likely ischemic cardiomyopathy. New onset. Severally diffuse hypokinesia of LV with EF of 15%, moderately dilated LV with mild to moderate MR and trace TR with PASP of 22 mmHg. High concerns for gut edema. Check proBNP. Switch from oral Lasix 20 mg to 60 mg IV twice daily. Monitor electrolytes as patient is currently getting high-dose of diuretics. Potassium 4.5 today. Continue with fluid restriction. Strict input output charting. Daily weights. Plan for possible cardiac angiogram on Tuesday. Continue with full dose Lovenox 1 mg/kg body weight every 12 hourly. Start on aspirin 81 mg daily. Continue statin. Appreciate recent A1c, lipid panel. We will plan for LifeVest on discharge. Appreciate cardiology recommendations. Intermittent A-fib RVR: Rate controlled. Continue with amiodarone 200 mg twice daily. Franky vas score: 5. Continue with full dose Lovenox for anticoagulation. We will switch to Eliquis on discharge. Recurrent hematuria related to Ahn catheter: Continue with Flomax. Ahn removed. Continue to monitor. Appreciate urology recommendations. In case of recurrent hematuria he is might need cystoscopy but for now we are doing conservative management UTI: Continue ceftriaxone to finish a 5-day course. Follow-up urine culture. Aspiration pneumonia: Continue Augmentin to finish a 5-day course. Diet change as per swallow evaluation. Full code. Speech evaluation. Dysphagia level 6 diet as per speech therapy. Full dose Lovenox will suffice as DVT prophylaxis. Protonix for PUD prophylaxis. Discharge planning: Plan to discharge back to SNF once medically ready possibly early next week after cardiac angiogram. Attestations Medical Necessity Statement*: Requires further hospitalization for evaluation and management of acute congestive systolic heart failure while ischemia is ruled out, intermittent A-fib Diagnoses Congestive heart failure I50.9 Cardiomyopathy I42.9 Community acquired pneumonia J18.9 Hematuria R31.9 UTI (urinary tract infection) N39.0 HTN (hypertension) I10 Atrial fibrillation with RVR I48.91 Peripheral arterial disease I73.9 Gross hematuria R31.0 BPH loc w urin obs/LUTS N40.1 Goals of care, counseling/discussion Z71.89
[2022-08-28] MEDS: atorvastatin 40 mg Tablet PO (18:50)
[2022-08-28] MEDS: trazodone 50 mg Tablet 25 MG PO (18:50)
[2022-08-29] VITALS (13 sets, daily range): BP systolic 90–115; BP diastolic 59–64; PULSE 76–97; RESP 14–20; TEMP 36.6–36.9; O2SAT 91–97
[2022-08-29 04:13] LABS: Basophils % 0.5 %; Eosinophils # 0.1 10^3/uL (0.0-0.8); Eosinophils % 1.1 %; Hematocrit 38.8 % (42.0-52.0); Hemoglobin 12.5 g/dL (11.7-16.6); Lymphocytes # 1.2 10^3/uL (0.8-4.8); Lymphocytes % 15.3 %; Mean Corpuscular HGB Conc 32.2 g/dL (30.0-36.0); Mean Corpuscular Hemoglobin 31.6 pg (28.0-34.0); Mean Platelet Volume 9.8 fL (7.4-10.4); Monocytes # 0.7 10^3/uL (0.2-0.9); Monocytes % 8.9 %; Neutrophils % 73.7 %; Nucleated Red Blood Cells % 0 %; Platelet Count 401 10^3/cmm (130-400); Red Blood Count 3.96 10^6/uL (4.1-5.3); Red Cell Distribution Width 14.8 % (12.1-15.1)
[2022-08-29 04:31] LABS: Alanine Aminotransferase 15 U/L (0-41); Albumin Level 3.4 g/dL (3.5-5.2); Alkaline Phosphatase 144 U/L (40-130); Aspartate Amino Transferase 21 U/L (0-40); Blood Urea Nitrogen 12 mg/dL (8-23); Calcium 8.9 mg/dL (8.5-10.5); Carbon Dioxide 25 mmol/L (22-29); Globulin 2.5 g/dL (1.3-4.6); Glucose 94 mg/dL (65-115); Total Bilirubin 0.4 mg/dL (0.15-1.2); Total Protein 5.9 g/dL (6.6-8.7)
[2022-08-29] MEDS: pantoprazole 40 mg SDV IVP (05:02)
[2022-08-29] MEDS: enoxaparin 80 mg/0.8 mL Syringe SUBCUT ×2 (05:02→17:34)
[2022-08-29] MEDS: FUROsemide 10 mg/mL SDV 10mL 60 MG IVP (05:02)
[2022-08-29] MEDS: amoxicillin-clav 875-125 mg Tablet 1 TAB PO ×2 (08:06→17:34)
[2022-08-29] MEDS: aspirin 81 mg EC Tablet PO (08:06)
[2022-08-29] MEDS: cefTRIAXone 1,000 MG in sodium chloride 0.9% (plus) 50 ML 100 MG IV (08:06)
[2022-08-29] MEDS: amiodarone 200 mg Tablet PO ×2 (08:06→17:35)
[2022-08-29] MEDS: potassium chloride ER 20 mEq Tablet 40 MEQ PO (08:07)
[2022-08-29] MEDS: tamsulosin 0.4 mg Capsule PO (08:07)
[2022-08-29] MEDS: ipratropium-albuterol 3 mL Neb INHALATION ×2 (09:09→13:48)
[2022-08-29] MEDS: budesonide 0.5 mg/2 mL Neb INHALATION (09:09)
[2022-08-29 09:19] LABS: Osmolality Calculated 278 mOsm/kg (285-295); Sodium 134 mmol/L (136-145)
[2022-08-29 09:20] LABS: Chloride 100 mmol/L (98-107)
--- NOTE | 2022-08-29 12:08 | PM.PN ---
Subjective Subjective: No acute events overnight. Patient remains hemodynamically stable and afebrile. Today morning examination laying comfortably in bed with family at bedside. Patient states he had the best night and the longest possible time. He is able to sleep without having any difficulty in breathing and he was able to lie down flat well. Remains on room air and hemodynamically stable. Around 4.8 L negative yesterday. Medications: Reviewed: Yes Vitals/I&O/Wt Last Vital Signs Temp 97.9 F 08/29/22 05:15 Pulse 81 08/29/22 09:10 Resp 19 H 08/29/22 09:10 BP 96/62 08/29/22 05:15 Pulse Ox 97 08/29/22 09:10 O2 Del Method 08/29/22 09:10 O2 Flow Rate 1.5 08/26/22 07:42 08/28/22 08/29/22 08/29/22 22:59 06:59 14:59 Intake Total 320 / 1030 240 / 1270 50 / 50 Output Total 1500 / 2000 1900 / 3900 1080 / 1080 Balance -1180 / -970 -1660 / -2630 -1030 / -1030 Weight last 48 hrs Weight 81.238 kg Weight 82.735 kg Weight 80.104 kg Physical Exam Narrative: General: No acute distress, AO x3, sitting up HEENT: PERRLA, pupils bilaterally equal and reactive Chest: Normal vesicular breath sounds, no added sounds, equal good air entry bilaterally CVS: S1-S2 regular, soft pansystolic murmur radiating to anterior axillary line, no tachycardia, no gallops, no rubs Abdomen: Soft, nontender, no organomegaly, bowel sounds present Neuro: No focal deficits, no facial deformity, AO x3, power 5/5 in all limbs Extremity: Bilateral pitting edema up to knee 1+ Urinary Catheter Management: Ahn: Cath Placed During This Visit: yes, but has since been removed by the nurse Reason for Continuing Indwelling Catheter: Decision to DC Catheter Urinary Catheter Date of Insertion: 08/19/22 Urinary Catheter Time of Insertion: 15:20 Date Urinary Catheter Removed: 08/26/22 Time Urinary Catheter Discontinued: 16:30 Data 08/29/22 03:45 08/29/22 03:45 Micro: Microbiology 08/25/22 11:33 Urine Culture - Final Urine,Clean Catch A&P Assessment and plan (1) Congestive heart failure: (2) Cardiomyopathy: (3) Community acquired pneumonia: (4) Hematuria: (5) UTI (urinary tract infection): (6) HTN (hypertension): (7) Atrial fibrillation with RVR: (8) Peripheral arterial disease: (9) Gross hematuria: (10) BPH loc w urin obs/LUTS: (11) Goals of care, counseling/discussion: Plan Acute systolic CHF exacerbation: Most likely ischemic cardiomyopathy. New onset. Severally diffuse hypokinesia of LV with EF of 15%, moderately dilated LV with mild to moderate MR and trace TR with PASP of 22 mmHg. Switch to IV Lasix 60 mg one-time today. Monitor electrolytes. Continue with fluid restriction. Target 1 L negative today. Strict input output charting. Daily weights. Plan for possible cardiac angiogram on Tuesday. Continue with full dose Lovenox 1 mg/kg body weight every 12 hourly. Start on aspirin 81 mg daily. Continue statin. Appreciate recent A1c, lipid panel. We will plan for LifeVest on discharge. Appreciate cardiology recommendations. Intermittent A-fib RVR: Rate controlled. Continue with amiodarone 200 mg twice daily. Franky vas score: 5. Continue with full dose Lovenox for anticoagulation. We will switch to Eliquis on discharge. Recurrent hematuria related to Ahn catheter: Continue with Flomax. Ahn removed. Continue to monitor. Appreciate urology recommendations. In case of recurrent hematuria he is might need cystoscopy but for now we are doing conservative management UTI: Continue ceftriaxone to finish a 5-day course. Follow-up urine culture. Aspiration pneumonia: Continue Augmentin to finish a 5-day course. Diet change as per swallow evaluation. Recent back surgery: We will consult with the primary surgeon tomorrow for reevaluation and possible suture removal. Full code. Speech evaluation. Dysphagia level 6 diet as per speech therapy. Full dose Lovenox will suffice as DVT prophylaxis. Protonix for PUD prophylaxis. Discharge planning: Plan to discharge back to SNF once medically ready possibly early next week after cardiac angiogram. Attestations Medical Necessity Statement*: Requires further hospitalization for management of acute systolic heart failure in setting of new low EF while ischemic etiology is ruled out with cardiac angiogram Coding Level of Care Code 07421 High MDM includes number and complexity of problems actively addressed during encounter, amount and/or complexity of data reviewed/ordered (Continue to monitor electrolytes secondary to aggressive diuresis) [ previous or external records, resulted lab(s)/test(s), ordered lab(s)/test(s), independent test interpretation and other healthcare professional discussion] and described risk of complication, morbidity or mortality of management as documented Diagnoses Congestive heart failure I50.9 Cardiomyopathy I42.9 Community acquired pneumonia J18.9 Hematuria R31.9 UTI (urinary tract infection) N39.0 HTN (hypertension) I10 Atrial fibrillation with RVR I48.91 Peripheral arterial disease I73.9 Gross hematuria R31.0 BPH loc w urin obs/LUTS N40.1 Goals of care, counseling/discussion Z71.89
--- NOTE | 2022-08-29 12:46 | PM.PN ---
Subjective Subjective: The patient is doing well. Diuresed over 4 liters yesterday. Medications: Reviewed: Yes Vitals/I&O/Wt Last Vital Signs Temp 97.9 F 08/29/22 05:15 Pulse 81 08/29/22 09:10 Resp 19 H 08/29/22 09:10 BP 96/62 08/29/22 05:15 Pulse Ox 97 08/29/22 09:10 O2 Del Method 08/29/22 09:10 O2 Flow Rate 1.5 08/26/22 07:42 08/28/22 08/29/22 08/29/22 22:59 06:59 14:59 Intake Total 320 / 1030 240 / 1270 530 / 530 Output Total 1500 / 2000 1900 / 3900 1080 / 1080 Balance -1180 / -970 -1660 / -2630 -550 / -550 Weight last 48 hrs Weight 179 lb 1.6 oz Weight 182 lb 6.4 oz Weight 176 lb 9.6 oz Physical Exam Neck/C-Spine: COMMON NORMALS: no JVD Chest: COMMONS NORMALS: normal inspection of the chest Resp: COMMON NORMALS: normal respiratory effort Cardio: COMMON NORMALS: no JVD Urinary Catheter Management: Ahn: Cath Placed During This Visit: yes, but has since been removed by the nurse Reason for Continuing Indwelling Catheter: Decision to DC Catheter Urinary Catheter Date of Insertion: 08/19/22 Urinary Catheter Time of Insertion: 15:20 Date Urinary Catheter Removed: 08/26/22 Time Urinary Catheter Discontinued: 16:30 Data 08/29/22 03:45 08/29/22 03:45 Micro: Microbiology 08/25/22 11:33 Urine Culture - Final Urine,Clean Catch Attestation for Other Data: I personally reviewed and interpreted the following: A&P Assessment and plan (1) Acute systolic heart failure: (2) Atrial fibrillation with RVR: Plan Proceed with left heart cath 08/[address] Marx and Anesthesia. After cath will consider adding Entresto and carvedilol. Due to CHF continue to avoid cilostazol. Attestations Medical Necessity Statement*: Patient requires inpatient evaluation and care for acute systolic heart failure for 2 MN Time Spent in Patient Care: 16 - 35 minutes Coding Level of Care Code 06218 Diagnoses Acute systolic heart failure I50.21 Atrial fibrillation with RVR I48.91 Time Spent (min) 30
[2022-08-29 20:14] LABS: Glucose Point of Care 113 mg/dL (70-110)
[2022-08-29] MEDS: acetaminophen 325 mg Tablet 650 MG PO (21:10)
[2022-08-29] MEDS: trazodone 50 mg Tablet 25 MG PO (21:11)
[2022-08-29] MEDS: atorvastatin 40 mg Tablet PO (21:11)
[2022-08-30] VITALS (19 sets, daily range): BP systolic 97–112; BP diastolic 60–78; PULSE 67–95; RESP 13–35; TEMP 35.9–36.6; O2SAT 90–99
[2022-08-30 04:58] LABS: Alanine Aminotransferase 14 U/L (0-41); Albumin Level 3.4 g/dL (3.5-5.2); Alkaline Phosphatase 134 U/L (40-130); Anion Gap 13.9 (5-19); Aspartate Amino Transferase 20 U/L (0-40); Blood Urea Nitrogen 12 mg/dL (8-23); Calcium 8.6 mg/dL (8.5-10.5); Carbon Dioxide 26 mmol/L (22-29); Chloride 97 mmol/L (98-107); Globulin 2.3 g/dL (1.3-4.6); Glucose 83 mg/dL (65-115); Osmolality Calculated 275 mOsm/kg (285-295); Potassium 3.9 mmol/L (3.5-5.1); Sodium 133 mmol/L (136-145); Total Bilirubin 0.6 mg/dL (0.15-1.2); Total Protein 5.7 g/dL (6.6-8.7)
[2022-08-30] MEDS: pantoprazole 40 mg SDV IVP (05:01)
[2022-08-30] MEDS: diphenhydrAMINE 50 mg Capsule PO (07:04)
--- NOTE | 2022-08-30 08:00 | P.ANESASSM_ITS ---
Pre-Anesthetic Assessment Height/Weight: Height 1.75 m Weight 77.065 kg Temp Pulse Resp BP Pulse Ox O2 Del Method O2 Flow Rate 98.0 F 78 22 H 107/65 93 1.5 08/29/22 20:00 08/30/22 05:19 08/30/22 04:00 08/30/22 04:00 08/30/22 04:00 08/30/22 04:00 08/26/22 07:42 Preop Diagnosis: Lumbar compression Fx, Lumbar Stenosis w/Neurogenic Claudication Operation Date: 08/30/22 08:30 Proposed Procedures p Left Sided Cardiac Catheterization with anesthesia(Left) - [place] anesthetic complications: None Was Beta Haley taken within 24 hours: N/A Was Clonidine taken within 24 hours: N/A Last intake: > 8 hrs Social Alcohol ( i like to have 3 high balls a night ) and Tobacco (chews) Exam alert, oriented x 3, clear to auscultation bilaterally and regular rate & rhythm Airway Mallampati: Class II Dentition: other (no teeth) Pulmonary Chronic Obstructive Pulmonary Disease CV/HEM Atrial Fibrillation, Congestive Heart Failure (EF 15%), Hypertension and Perip heral Vascular Disease GI Gastroesophageal Reflux Disease Anesthetic Plan ASA status: 4 Anesthesia: MAC Other: Will start with conscious sedation only and evaluate patient's ability to tolerate procedure Risk of > 500 ml blood loss (7ml/kg in children): No Medications/Allergies Home Medications Medication Instructions Recorded Confirmed Last Taken Type multivitamin 1 tab PO DAILY 01/21/22 08/19/22 01/27/22 07:00 History clopidogrel 75 mg tablet 75 mg PO DAILY #30 tabs 01/23/22 08/19/22 01/26/22 Rx pentoxifylline 400 mg 400 mg PO TID 30 days #90 tabs 04/12/22 08/19/22 Unknown Rx tablet,extended release tramadol 50 mg tablet 50 mg PO BID PRN pain #45 tabs 07/21/22 08/19/22 Unknown Rx albuterol sulfate 90 mcg/actuation 2 puff inhalation Q6H PRN 08/03/22 08/19/22 Unknown History aerosol inhaler (ProAir HFA) Shortness Of Breath ferrous gluconate 324 mg (37.5 mg 324 mg PO DAILY 08/03/22 08/19/22 Unknown History iron) tablet folic acid 1 mg tablet 1 mg PO DAILY 08/03/22 08/19/22 Unknown History potassium chloride 20 mEq 20 meq PO DAILY 08/03/22 08/19/22 Unknown History tablet,extended release cilostazol 50 mg tablet 50 mg PO BID 08/04/22 08/19/22 Unknown History acetaminophen 325 mg tablet 650 mg PO Q6H PRN Pain/fever 08/19/22 08/19/22 Unknown History (Tylenol) bisacodyl 10 mg rectal suppository 10 mg IN DAILY PRN Constipation 08/19/22 08/19/22 Unknown History (Dulcolax (bisacodyl)) diltiazem HCl 120 mg 120 mg PO DAILY 08/19/22 08/19/22 Unknown History tablet,extended release 24 hr furosemide 40 mg tablet (Lasix) 40 mg PO BID 08/19/22 08/19/22 Unknown History hydrocodone 5 mg-acetaminophen 325 1 tab PO Q8H PRN Pain 08/19/22 08/19/22 Unknown History mg tablet magnesium hydroxide 400 mg/5 mL 30 ml PO DAILY PRN Constipation 08/19/22 08/19/22 Unknown History oral suspension (Milk of Magnesia) magnesium oxide 400 mg PO DAILY 08/19/22 08/19/22 Unknown History pantoprazole 40 mg tablet,delayed 40 mg PO DAILY 08/19/22 08/19/22 Unknown History release sodium phosphates 19 gram-7 118 ml IN BEDTIME PRN Constipation 08/19/22 08/19/22 Unknown History gram/118 mL enema (Fleet Enema) trazodone 50 mg tablet 25 mg PO BEDTIME 08/19/22 08/19/22 Unknown History Allergies Allergy/AdvReac Type Severity Reaction Status Date / Time No Known Allergies Allergy Verified 08/19/22 01:07 Current Medications Generic Name Dose Route Start Last Admin Trade Name Freq PRN Reason Stop Dose Admin Acetaminophen 650 mg 08/19/22 05:17 08/29/22 21:10 Acetaminophen 325 Mg Tablet PO 650 mg Q6H PRN Administration Mild/Mod Pain Or Temp >/= 101 Albuterol/Ipratropium 3 ml 08/19/22 08:00 08/30/22 02:11 Ipratropium-Albuterol 3 Ml Neb INHALATION Not Given Q6H.RESP LINDA Amiodarone HCl 200 mg 08/25/22 10:01 08/29/22 17:35 Amiodarone 200 Mg Tablet PO 200 mg BID LINDA Administration Amoxicillin/Clavulanate Potassium 1 tab 08/26/22 09:00 08/29/22 17:34 Amoxicillin-Clav 875-125 Mg Tablet PO 09/27/22 23:59 1 tab BID LINDA Administration Protocol Aspirin 81 mg 08/28/22 09:00 08/29/22 08:06 Aspirin 81 Mg Ec Tablet PO 81 mg DAILY LINDA Administration Atorvastatin Calcium 40 mg 08/20/22 21:00 08/29/22 21:11 Atorvastatin 40 Mg Tablet PO 40 mg BEDTIME LINDA Administration Budesonide 0.5 mg 08/19/22 08:00 08/29/22 21:16 Budesonide 0.5 Mg/2 Ml Neb INHALATION Not Given BID.RESPIRATORY LINDA Clopidogrel Bisulfate 75 mg 08/19/22 09:00 08/23/22 10:04 Clopidogrel 75 Mg Tablet PO 75 mg DAILY LINDA Administration Enoxaparin Sodium 80 mg 08/19/22 18:00 08/30/22 04:11 Enoxaparin 80 Mg/0.8 Ml Syringe 1 mg/kg (100 mg) Not Given SUBCUT Q12H LINDA Guaifenesin 200 mg 08/21/22 22:49 08/23/22 20:40 Guaifenesin 100 Mg/5 Ml Udc 10 Ml PO 200 mg Q4H PRN Administration COUGH AND CONGESTION Ceftriaxone Sodium 1,000 mg/ 50 mls @ 100 mls/hr 08/26/22 09:00 08/29/22 09:36 Sodium Chloride IV Infused DAILY LINDA Infusion Protocol Pantoprazole Sodium 40 mg 08/19/22 05:30 08/30/22 05:01 Pantoprazole 40 Mg Sdv IVP 40 mg Q24H LINDA Administration Potassium Chloride 40 meq 08/20/22 09:00 08/29/22 08:07 Potassium Chloride Er 20 Meq Tablet PO 40 meq DAILY LINDA Administration Spironolactone 25 mg 08/20/22 09:00 08/27/22 09:17 Spironolactone 25 Mg Tablet PO 25 mg DAILY LINDA Administration Tamsulosin HCl 0.4 mg 08/27/22 10:50 08/29/22 08:07 Tamsulosin 0.4 Mg Capsule PO 0.4 mg DAILY LINDA Administration Trazodone HCl 25 mg 08/20/22 22:59 08/29/22 21:11 Trazodone 50 Mg Tablet PO 25 mg BEDTIME PRN Administration INSOMNIA PFSH Anesthesia Medical History Amputated toe of left foot discharged from wound care 07/05/22, follows with Dr Brunner Chronic alcohol use Chronic hyponatremia Claudication Compression fx, lumbar spine COPD (chronic obstructive pulmonary disease) Gait instability GERD (gastroesophageal reflux disease) History of nonmelanoma skin cancer History of smoking HTN (hypertension) Intractable back pain 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 Myalgia, multiple sites Nicotine dependence, chewing tobacco, with other nicotine-induced disorders Nodular basal cell carcinoma tip of nose, initial treatment with imiquimod, follows with Dr Gil PAC (premature atrial contraction) Right lower lobe pneumonia Severe peripheral arterial disease Slow urinary stream Spinal stenosis, lumbar region, with neurogenic claudication Surgical History 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 History of hip surgery right hip fracture repair S/P peripheral artery angioplasty with stent placement 12/2021 Left common/External Iliac Artery with 80% stenosis treated with AB ARMADA [id number]. 8.0 x 19 mm Omnilink stent was placed. Left Proximal Superficial Femoral Artery with 80-90 % stenosis treated with AB ARMADA 35 OTW [id number]. Family History Other No pertinent family history Social History Smoking and tobacco status: current every day smoker smokeless tobacco Smokeless tobacco details: chewless pouches now, former chewing tobacco, former cigarette smoker Alcohol intake: current Alcohol type: hard liquor Lives independently: Yes Household members: none Housing: House Data Anesthesia 08/29/22 03:45 08/30/22 04:02 Short CBC 08/29/22 Range/Units 03:45 WBC 8.0 (4.0-10.0) 10^3/uL Hgb 12.5 (11.7-16.6) g/dL Hct 38.8 L (42.0-52.0) % MCV 98.0 H (80-94) fl Plt Count 401 H (130-400) 10^3/cmm Neut % (Auto) 73.7 % Neut # (Auto) 5.90 (1.8-7.7) 10^3/uL BMP 08/29/22 08/30/22 03:45 04:02 Sodium 134 L 133 L Potassium 4.0 3.9 Chloride 100 97 L Carbon Dioxide 25 26 BUN 12 12 Creatinine 1.2 1.1 Glucose 94 83 Calcium 8.9 8.6 Liver Function 08/29/22 08/30/22 Range/Units 03:45 04:02 Total Bilirubin 0.4 0.6 (0.15-1.2) mg/dL AST 21 20 (0-40) U/L ALT 15 14 (0-41) U/L Alkaline Phosphatase 144 H 134 H (40-130) U/L Albumin 3.4 L 3.4 L (3.5-5.2) g/dL Cardiac Studies: Echocardiogram 08/19/22
[2022-08-30] MEDS: ipratropium-albuterol 3 mL Neb INHALATION ×3 (08:10→19:32)
[2022-08-30] MEDS: budesonide 0.5 mg/2 mL Neb INHALATION ×2 (08:10→19:32)
--- NOTE | 2022-08-30 08:30 | XACV_ITS ---
Exam Room: 2 Ht: 175 cm Wt: 77 kg BSA: 1.94 m2 Gender: Male : 1940 Any Known Allergies: No known allergies Exam Priority: Routine Procedure(s): Procedure Description: Diagnostic procedure Procedure Description: PCI procedure Procedure Description: Drug Eluting Coronary Stent Procedure Description: PTCA Procedure Description: Miscellaneous Procedure Description: ACT Procedure Description: Coronary Angiography Diagnostic Cath Status: Elective Diagnostic Findings * Left Main has no disease. * Left Anterior Descending has no disease. * Circumflex has no disease. * Mid Right Coronary Artery: significant 80% stenosis, REED: 3 flow. * Coronary angiography shows right dominance. PCI Status: Elective PCI Indication: Other Interventional Findings * Procedure Detail: We engaged RCA with JR4 guide catheter. IV heparin was administered to maintain anticoagulation. 0.014 run-through guidewire was used to cross mid RCA stenosis and was put in distal vessel. We predilated the stenosis with 3.0 x 12 mm semicompliant balloon. This was followed by placement of 3.5 x 15 mm resolute Colten drug-eluting stent. At this time final angiogram was performed that showed excellent stent expansion, no residual stenosis REED-3 flow. Patient left the Soap Boiler in a stable condition.. * Mid Right Coronary Artery: 80% stenosis treated with a AB TREK 3.00X12 RX BALLOON, and MDT Kaye COLTEN 3.5X15 JORDAN. 0% residual stenosis, REED: 3 flow. Conclusions 1. Severe mid RCA stenosis s/p successful revascularization with JORDAN x1.. 2. Mid Right Coronary Artery was treated with a Balloon, and Drug Eluting Stent. Recommendations * Dual antiplatelet therapy with aspirin and Plavix for at least 1 year. * High intensity statin therapy. * Guideline directed heart failure therapy. * Outpatient cardiology follow-up in 4-week. Interventional RX Recommendation: PCI w/o planned CABG Diagnostic RX Recommendation: PCI w/o planned CABG Anticoagulation: Heparin Pressures Phase:Rest AO : 81 / 59 ( 71 ) @ 10:32:00 AM 87 / 53 ( 65 ) @ 10:36:00 AM 79 / 42 ( 57 ) @ 10:40:00 AM Clinical Evaluation EBL: 5mL-10mL Procedural Details Procedure Consent Obtained. Admit Source: In Patient. Current Diagnosis : NSTEMI. Hemodynamic formulas in Rest were re-calculated based on hemoglobin value from 08/29/2022 3:45:00 AM. Pre-Procedure Time Out. Identified patient by full name and date of as verbalized by the patient/guarantor. Does the consent match the physician's order: Yes. Anesthesia arrived to provide sedation for duration of case. See Anesthesia flowsheet. Accurate & Complete Informed Consent: Yes. Inpatient/Outpatient History & Physical on Chart: Yes. If H&P is completed, is and addenduem needed: No; If yes, is the addendum complete: N/A. Visualize and Verify Site with Patient/Guarantor: N/A. Relevant Radiology Images available: Yes. The risks, benefits, and alternatives of sedation and/or procedure were discussed by physician. The patient agrees to continue. Procedure started. [facility] Clinical Fraility Score: 6: Moderately Frail. Soap Boiler Indications: LV Dysfunction. Chest Pain Symptom Assessment: Typical Angina Symptoms. Correct patient, site and procedure confirmed by cath team. Current diagnosis: Acute heart failure. PERRLA. Strong, equal hand office nurse bilaterally. Lungs clear x 5 lobes. IV Site on Arrival: 20 gauge in the left forearm. IV Fluids: 0.9% NaCl at 75ml/hr. 0 mL infused prior to research laboratory specialist. Oxygen started at 10 liters/min via simple mask. bilateral groins was prepped with chloroprep then draped in the usual sterile fashion. Physician notified. Baseline sample Acquired. HR: 84 BPM. Pre Procedural Pulses: bilateral dorsalis pedis was Doppled. Pre Procedural Pulses: bilateral posterior tibial was Doppled. Physician arrived. Physician scrubbed in. Immediate Pre-Procedure Time Out. Correct Patient: No; Correct Procedure: Yes; Correct Site: Yes; Correct Patient Position: Yes; Correct Supplies: Yes; Dried Flammable Prep: Yes; Blood Products Available: No;. Lidocaine 1% infiltrated to the right groin. Arterial access obtained with micropuncture set. A 5 peruvian JL4 catheter in over wire. Multiple views taken of left coronary artery. Catheter removed over the standard wire. A 5 peruvian JR4 catheter in over wire. Multiple views taken of right coronary artery. Inventory: Co-airline pilot, Endoflator. 6 peruvian JR 4 guide catheter was inserted over the wire. Runthrough guidewire was advanced through the guide catheter to lesion in the mid RCA. Guidewire advanced across lesion. Balloon inserted to lesion in the mid RCA. Inflation number : 1 A AB TREK 3.00X12 RX BALLOON was prepped and advanced across the Mid RCA , then inflated to 8 BLESSING for 0:18 seconds. Inflation number: 2 The AB TREK 3.00X12 RX BALLOON was reinflated across the Mid RCA, to 8 BLESSING for 0:17 seconds. Balloon out. Stent inserted to lesion in the mid RCA. Inflation Number : 3 A KAT Restrepo COLTEN 3.5X15 JORDAN -Lot Number# [id number] [facility] 10-12-2022 was prepped and advanced across the Mid RCA. The stent was deployed at 12 BLESSING for 0:26 seconds. Stent balloon out over wire. ACT drawn. Results out of range-high. Therapeutic limits - pre-heparin administration 90-150 seconds and monitoring heparin during a vascular procedure >250 seconds. Angiography performed, checking results. Runthrough wire out. Angiography performed. Guide catheter out. A Suture was successful obtaining hemostatsis at the Right Femoral artery insertion site. Sheath(s) sutured into position with 2-0 silk and sterile 4x4's and Op-site applied over the site. No oozing or signs and symptoms of hematoma noted. Arterial sheath flushed and connected to tranducer and pressure bag with heparinized saline. Post Procedure: Pulses reassessed and unchanged. PERRLA. Strong, equal hand office nurse bilaterally. No VTE prophylaxis required. Post-op diagnosis: Severe mid RCA stenosis, Post PCI placement of 1 stent. Complications: None. Estimated blood loss: 5mL-10mL. Nausea/Vomiting: No. Circulation: W/N/L, pulses unchanged. ACT drawn. Results 322 seconds. Therapeutic limits - pre-heparin administration 90-150 seconds and monitoring heparin during a vascular procedure >250 seconds. Medication's Wasted: Heparin = 2000 unit. Total IV fluids: 200 mL. Responsiveness - Normal response to verbal stimuli; alert and oriented, PERRLA. Airway - Unaffected, no intervention required; spontaneous ventilation. Procedure completed. Patient transferred by bed to 1st floor. Vital chart was stopped. Access Site Site: Right Femoral artery Sheath Size: 6 Fr Hemostasis Method: Suture Hemostasis Success: Successful Procedure Medications Start: 9:38 AM Stop: 9:38 AM Medication: Heparin Amount: 7000 units Route: I.V. Start: 9:49 AM Stop: 9:49 AM Medication: Aggrastat 12.5 mg/250 mL Amount: 38 ml Route: I.V. bolus Start: 9:49 AM Stop: 9:49 AM Medication: Aggrastat 12.5 mg/250 mL Amount: 13.7 ml/hr Route: I.VSheng hall I, the attending physician, have reviewed and verified all procedure medications. Yes, all medications given per verbal order History/Risk Factors Hypertension: No Dyslipidemia: No Peripheral Arterial Disease (PAD): Yes Myocardial Infarction (SC): No Obesity: No Renal Disease: No Tobacco Use: Current/Recent(w/in 1 year) Prior Interventions PCI: No CABG: No Valve Surgery: No Report Signatures Finalized by Rober Marx MD on 09/12/2022 10:35 AM
[2022-08-30] MEDS: sodium chloride 0.9% 1,000 ML 50 ML IV (08:38)
--- NOTE | 2022-08-30 08:53 | PC.SOCIAL ---
IMM update IMM Updated with patient. Copy Pg 2 provided. Verbalized an understanding. Initialled, dated, timed, and placed in chart.
--- NOTE | 2022-08-30 08:54 | PC.NURSE ---
patient left floor for laborer tanbark 08/30/2022 @ 0895
--- NOTE | 2022-08-30 09:01 | P.HPUD_ITS ---
Surgery/Procedure H&P Update DATE OF PROCEDURE: August 30, 2022 DATE H&P PERFORMED: 08/19/22 H&P UPDATE INFORMATION: I have reviewed H&P completed within last 30 days, I have examined patient prior to procedure and No changes to prior documentation CHANGES TO PREVIOUS DOCUMENTATION: We attempted left heart catheterization to assess the underlying etiology for new onset congestive heart failure/LV dysfunction last week. However patient st arted using accessory muscles and was hypoxic prior to starting the procedure. Procedure was aborted. He underwent further diuresis. Volume status is improved. Plan for coronary angiogram with possible percutaneous coronary intervention with anesthesia support. PREOP DIAGNOSIS: New onset congestive heart failure/ LV dysfunction PRIMARY INDICATION FOR PROCEDURE: New onset congestive heart failure/ LV dysfunction PLANNED PROCEDURE: Operation Date: 08/30/22 08:30 Proposed Procedures p Left Sided Cardiac Catheterization with anesthesia(Left) - Rober Marx M.D Possible percutaneous coronary intervention Anesthesia team performing sedation
--- NOTE | 2022-08-30 10:15 | SUR.PHASEI ---
POST CATH NOTE Received patient from Cane Flume Watcher- status post cardiac catheterization via the right femoral approach. Pressure bag in place. Site is hemostatic. Post anesthesia. On simple mask-6 lpm. VSS. assessments per flowsheet.
--- NOTE | 2022-08-30 10:37 | PC.NURSE ---
per MD Araseli hold morning lasix dose and give during the evening.
--- NOTE | 2022-08-30 10:54 | P.PN_ITS ---
Subjective Subjective: Patient underwent coronary angiogram that revealed severe mid RCA stenosis s/p PCI with JORDAN x1. Tolerated procedure well. Rest of coronaries are normal. Vitals/I&O/Wt Last Vital Signs Temp 96.7 F L 08/30/22 08:00 Pulse 68 08/30/22 10:30 Resp 14 08/30/22 10:30 BP 105/61 08/30/22 10:30 Pulse Ox 98 08/30/22 10:30 O2 Del Method 08/30/22 10:30 O2 Flow Rate 3 08/30/22 10:30 08/29/22 08/30/22 08/30/22 22:59 06:59 14:59 Intake Total 340 / 870 0 / 0 Output Total 475 / 475 Balance 340 / -1160 -475 / -475 Weight last 48 hrs Weight 169 lb 14.4 oz Weight 179 lb 1.6 oz Physical Exam Narrative: GENERAL: Patient is alert, awake and oriented x3. [] NECK: No jugular vein distension. [] HEENT: No cyanosis. No icterus. No pallor. [] HEART: Regular S1 and S2. No murmur, rub or gallop. [] LUNGS: Clear to auscultate bilaterally. [] CENTRAL NERVOUS SYSTEM: Grossly nonfocal. [] EXTREMITIES: Lower extremities with 1+ edema Urinary Catheter Management: Ahn: Cath Placed During This Visit: yes, but has since been removed by the nurse Reason for Continuing Indwelling Catheter: Decision to DC Catheter Urinary Catheter Date of Insertion: 08/19/22 Urinary Catheter Time of Insertion: 15:20 Date Urinary Catheter Removed: 08/26/22 Time Urinary Catheter Discontinued: 16:30 Data 08/29/22 03:45 08/30/22 04:02 A&P Assessment and plan (1) Congestive heart failure: Likely nonischemic cardiomyopathy however had severe mid RCA stenosis. Status post successful revascularization with JORDAN x1 to improve chances of LV recovery. Patient put on aspirin and Plavix. Continue for at least 20 repeat (2) Atrial fibrillation with RVR: Heart rate is controlled. Continue amiodarone. Anticoagulation was held today secondary to femoral access site. Can be restarted in the morning. (3) Cardiomyopathy: New onset LV dysfunction. Lasix was held this morning for angiogram. Can restart later. (4) Peripheral arterial disease: Continue current therapy. Plan His other problems are COPD Possible pneumonia Recent back surgery Patient will need a LifeVest secondary to severe LV dysfunction. Can start low- dose beta-blockers. Once blood pressure allows, can start Entresto. Attestations Medical Necessity Statement*: Care expected to cross 2 midnights. Coding Level of Care Code Acute Code for [facility] Fwd Diagnoses Congestive heart failure I50.9 Atrial fibrillation with RVR I48.91 Cardiomyopathy I42.9 Peripheral arterial disease I73.9
--- NOTE | 2022-08-30 11:00 | PC.NURSE ---
pt arrived back on CSU 08/30/2022 at 1053
[2022-08-30] MEDS: tamsulosin 0.4 mg Capsule PO (11:19)
[2022-08-30] MEDS: amoxicillin-clav 875-125 mg Tablet 1 TAB PO ×2 (11:20→17:35)
[2022-08-30] MEDS: amiodarone 200 mg Tablet PO ×2 (11:20→17:35)
[2022-08-30] MEDS: aspirin 325 mg Tablet PO (11:20)
[2022-08-30] MEDS: potassium chloride ER 20 mEq Tablet 40 MEQ PO (11:20)
[2022-08-30] MEDS: clopidogrel 300 mg Tablet 600 MG PO (11:20)
[2022-08-30] MEDS: cefTRIAXone 1,000 MG in sodium chloride 0.9% (plus) 50 ML 100 MG IV (11:21)
--- NOTE | 2022-08-30 12:02 | ANE.PACU2 ---
Inpatient post-anesthesia follow up: Airway intact: Yes Vital signs: Temperature 96.7 F Pulse Rate 76 Respiratory Rate 18 Blood Pressure 106/70 Pulse Oximetry 92 Oxygen Delivery Me thod Room Air Oxygen Flow Rate 3 Fraction of Inspir ed Oxygen Hydration adequate: Yes Nausea and vomiting: No Pain level: 1 Mental status: Baseline
--- NOTE | 2022-08-30 13:23 | P.PN_ITS ---
Subjective Subjective: No acute events overnight. Patient states he continues to feel better. Denies any nausea, vomiting, headache. Continues to remain on room air. Underwent cardiac angiogram today. Full report not available currently but verbally he underwent PCI to RCA. Tolerated procedure well. Has remained hemodynamically stable and afebrile. Documented urine output in last 24 hours. More than 2 L. Patient is net 6 L negative. Medications: Reviewed: Yes Vitals/I&O/Wt Last Vital Signs Temp 96.7 F L 08/30/22 11:00 Pulse 74 08/30/22 12:30 Resp 22 H 08/30/22 12:30 BP 111/64 08/30/22 12:30 Pulse Ox 92 08/30/22 11:30 O2 Del Method 08/30/22 12:48 O2 Flow Rate 3 08/30/22 10:30 08/29/22 08/30/22 08/30/22 22:59 06:59 14:59 Intake Total 340 / 870 268 / 268 Output Total 475 / 475 Balance 340 / -1160 -207 / -207 Weight last 48 hrs Weight 77.065 kg Weight 81.238 kg Physical Exam Narrative: General: No acute distress, AO x3, sitting up HEENT: PERRLA, pupils bilaterally equal and reactive Chest: Normal vesicular breath sounds, no added sounds, equal good air entry bilaterally CVS: S1-S2 regular, soft pansystolic murmur radiating to anterior axillary line, no tachycardia, no gallops, no rubs Abdomen: Soft, nontender, no organomegaly, bowel sounds present Neuro: No focal deficits, no facial deformity, AO x3, power 5/5 in all limbs Extremity: Bilateral pitting edema up to knee 1+, improving. Urinary Catheter Management: Ahn: Cath Placed During This Visit: yes, but has since been removed by the nurse Reason for Continuing Indwelling Catheter: Decision to DC Catheter Urinary Catheter Date of Insertion: 08/19/22 Urinary Catheter Time of Insertion: 15:20 Date Urinary Catheter Removed: 08/26/22 Time Urinary Catheter Discontinued: 16:30 Data 08/29/22 03:45 08/30/22 04:02 A&P Assessment and plan (1) Congestive heart failure: (2) Cardiomyopathy: (3) Community acquired pneumonia: (4) Hematuria: (5) UTI (urinary tract infection): (6) HTN (hypertension): (7) Atrial fibrillation with RVR: (8) Peripheral arterial disease: (9) Gross hematuria: (10) BPH loc w urin obs/LUTS: (11) Goals of care, counseling/discussion: Plan Acute systolic CHF exacerbation: Most likely ischemic cardiomyopathy. New ons et. Severally diffuse hypokinesia of LV with EF of 15%, moderately dilated LV with mild to moderate MR and trace TR with PASP of 22 mmHg. Plan to switch over to oral Lasix on discharge. Most likely will discharge on 40 mg twice daily with oral potassium daily. Continue with fluid restriction. Strict input output charting. Daily weights. CAD: Post PCI: Full Report not available currently. Continue with aspirin, Plavix, statin. Appreciate recent A1c, lipid panel. We will plan for LifeVest on discharge. Appreciate cardiology recommendations. Intermittent A-fib RVR: Rate controlled. Continue with amiodarone 200 mg twice daily. Franky vas score: 5. Continue with full dose Lovenox for anticoagulation. We will switch to Eliquis on discharge. Recurrent hematuria related to Ahn catheter: Continue with Flomax. Ahn removed. Continue to monitor. Appreciate urology recommendations. In case of recurrent hematuria he is might need cystoscopy but for now we are doing conservative management UTI: Continue ceftriaxone to finish a 5-day course. Follow-up urine culture. Aspiration pneumonia: Continue Augmentin to finish a 5-day course. Diet change as per swallow evaluation. Recent back surgery: We will consult with the primary surgeon tomorrow for reevaluation and possible suture removal. Full code. Speech evaluation. Dysphagia level 6 diet as per speech therapy. Full dose Lovenox will suffice as DVT prophylaxis. Protonix for PUD prophylaxis. Discharge planning: Plan to discharge back to SNF once medically ready possibly early next week after cardiac angiogram. Attestations Medical Necessity Statement*: Requires further hospitalization for management of CAD, post PCI for patient with new systolic heart failure with severe LV dysfunction, atrial fibrillation with rapid ventricular response Diagnoses Congestive heart failure I50.9 Cardiomyopathy I42.9 Community acquired pneumonia J18.9 Hematuria R31.9 UTI (urinary tract infection) N39.0 HTN (hypertension) I10 Atrial fibrillation with RVR I48.91 Peripheral arterial disease I73.9 Gross hematuria R31.0 BPH loc w urin obs/LUTS N40.1 Goals of care, counseling/discussion Z71.89
[2022-08-30] MEDS: tirofiban 5 MG/100 ML PREMIX 13.7 MG IV (13:48)
[2022-08-30 13:49] LABS: Partial Thromboplastin Time 88.7 SECONDS (23.9-36.7)
--- NOTE | 2022-08-30 15:08 | PC.OT ---
OT tx has been attempted 2x today. 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 Pt awake but groggy and keeps falling asleep while attempting to eat his lunch. Pt has family at bedside watching him. Pt refuses to wait to eat. Nursing present and aware. OT to attempt tx again tomorrow.
[2022-08-30 15:34] LABS: Partial Thromboplastin Time 43.6 SECONDS (23.9-36.7)
--- NOTE | 2022-08-30 16:43 | PC.NURSE ---
PTT is less than 45. Nurse removed Femoral sheath. Pressure held for 20 minutes. No hematoma formation. External blood loss less than 10 mL. Sheath pull was uneventful. Site dressed with gauze and clear tegaderm. Patient educated on need to lay flat for 6 hours. Completed sheath pull at 1645, 6 hour supine will end at 2245.
[2022-08-30] MEDS: enoxaparin 80 mg/0.8 mL Syringe SUBCUT (18:36)
[2022-08-30] MEDS: atorvastatin 40 mg Tablet PO (20:54)
[2022-08-30] MEDS: trazodone 50 mg Tablet 25 MG PO (23:25)
[2022-08-31] VITALS (17 sets, daily range): BP systolic 94–104; BP diastolic 62–72; PULSE 73–100; RESP 15–32; TEMP 36.6–36.7; O2SAT 91–99
[2022-08-31] MEDS: ipratropium-albuterol 3 mL Neb INHALATION ×4 (02:36→20:59)
[2022-08-31 04:16] LABS: Basophils # 0.1 10^3/uL (0.0-0.1); Basophils % 0.7 %; Eosinophils # 0.1 10^3/uL (0.0-0.8); Eosinophils % 1.6 %; Hematocrit 38.9 % (42.0-52.0); Hemoglobin 12.4 g/dL (11.7-16.6); Lymphocytes # 1.2 10^3/uL (0.8-4.8); Mean Corpuscular HGB Conc 31.9 g/dL (30.0-36.0); Mean Corpuscular Hemoglobin 31.2 pg (28.0-34.0); Monocytes # 0.8 10^3/uL (0.2-0.9); Monocytes % 9.9 %; Neutrophils # 5.48 10^3/uL (1.8-7.7); Neutrophils % 71.4 %; Nucleated Red Blood Cells % 0 %; Platelet Count 343 10^3/cmm (130-400); Red Blood Count 3.97 10^6/uL (4.1-5.3); Red Cell Distribution Width 14.7 % (12.1-15.1); White Blood Count 7.7 10^3/uL (4.0-10.0)
[2022-08-31 04:33] LABS: Alanine Aminotransferase 14 U/L (0-41); Albumin Level 3.5 g/dL (3.5-5.2); Alkaline Phosphatase 123 U/L (40-130); Anion Gap 17.3 (5-19); Aspartate Amino Transferase 20 U/L (0-40); Blood Urea Nitrogen 11 mg/dL (8-23); Calcium 8.8 mg/dL (8.5-10.5); Carbon Dioxide 23 mmol/L (22-29); Chloride 98 mmol/L (98-107); Globulin 2.6 g/dL (1.3-4.6); Glucose 98 mg/dL (65-115); Osmolality Calculated 277 mOsm/kg (285-295); Potassium 4.3 mmol/L (3.5-5.1); Sodium 134 mmol/L (136-145); Total Bilirubin 0.5 mg/dL (0.15-1.2); Total Protein 6.1 g/dL (6.6-8.7)
[2022-08-31] MEDS: enoxaparin 80 mg/0.8 mL Syringe SUBCUT (05:59)
[2022-08-31] MEDS: pantoprazole 40 mg SDV IVP (05:59)
--- NOTE | 2022-08-31 07:13 | P.PN_ITS ---
Subjective Subjective: Patient is doing well. No chest pain. Has hematuria Vitals/I&O/Wt Last Vital Signs Temp 98 F 08/31/22 04:00 Pulse 87 08/31/22 05:34 Resp 19 H 08/31/22 04:00 BP 101/72 08/31/22 04:00 Pulse Ox 91 08/31/22 04:00 O2 Del Method 08/31/22 03:07 O2 Flow Rate 3 08/30/22 10:30 08/30/22 08/31/22 08/31/22 22:59 06:59 14:59 Intake Total 90 / 476 200 / 676 Output Total 400 / 875 300 / 1175 Balance -310 / -399 -100 / -499 Weight last 48 hrs Weight 167 lb 14.4 oz Weight 169 lb 14.4 oz Physical Exam Narrative: GENERAL: Patient is alert, awake and oriented x3. [] NECK: No jugular vein distension. [] HEENT: No cyanosis. No icterus. No pallor. [] HEART: Regular S1 and S2. No murmur, rub or gallop. [] LUNGS: Clear to auscultate bilaterally. [] CENTRAL NERVOUS SYSTEM: Grossly nonfocal. [] EXTREMITIES: Lower extremities with 1+ edema Urinary Catheter Management: Ahn: Cath Placed During This Visit: yes, but has since been removed by the nurse Reason for Continuing Indwelling Catheter: Decision to DC Catheter Urinary Catheter Date of Insertion: 08/19/22 Urinary Catheter Time of Insertion: 15:20 Date Urinary Catheter Removed: 08/26/22 Time Urinary Catheter Discontinued: 16:30 Data 08/31/22 03:57 08/31/22 03:57 A&P Assessment and plan (1) Congestive heart failure: Likely nonischemic cardiomyopathy however had severe mid RCA stenosis. Status post successful revascularization with JORDAN x1 to improve chances of LV recovery. Patient put on aspirin and Plavix. Continue for at least 1 year Patient started on metoprolol. Will need to uptitrate. BP is low, will hold off on enteresto for now but will start as outpatient, if BP improves Qualifiers: Heart failure chronicity: acute Heart failure type: systolic Qualified Code(s): I50.21 - Acute systolic (congestive) heart failure (2) Atrial fibrillation with RVR: Heart rate is controlled. Continue amiodarone.Given hematuria, patient's lovenox has been held (3) Cardiomyopathy: Lasix restarted Qualifiers: Cardiomyopathy type: ischemic Qualified Code(s): I25.5 - Ischemic cardiomyopathy (4) Peripheral arterial disease: Continue current therapy. Plan His other problems are COPD Possible pneumonia Recent back surgery Patient will need a LifeVest secondary to severe LV dysfunction. Can start low- dose beta-blockers. Once blood pressure allows, can start Entresto. Attestations Medical Necessity Statement*: Care expected to cross 2 midnights. Coding Level of Care Code Acute Code for [facility] Diagnoses Congestive heart failure I50.21 Heart failure chronicity: acute Heart failure type: systolic Atrial fibrillation with RVR I48.91 Cardiomyopathy I25.5 Cardiomyopathy type: ischemic Peripheral arterial disease I73.9
[2022-08-31] MEDS: budesonide 0.5 mg/2 mL Neb INHALATION ×2 (07:53→21:02)
[2022-08-31] MEDS: cefTRIAXone 1,000 MG in sodium chloride 0.9% (plus) 50 ML 100 MG IV (08:26)
[2022-08-31] MEDS: clopidogrel 75 mg Tablet PO (08:26)
[2022-08-31] MEDS: aspirin 81 mg EC Tablet PO (08:26)
[2022-08-31] MEDS: potassium chloride ER 20 mEq Tablet 40 MEQ PO (08:26)
[2022-08-31] MEDS: amoxicillin-clav 875-125 mg Tablet 1 TAB PO (08:26)
[2022-08-31] MEDS: amiodarone 200 mg Tablet PO ×2 (08:26→09:55)
--- NOTE | 2022-08-31 11:45 | PM.PN ---
Subjective Subjective: No acute events overnight. Patient underwent PCI yesterday. States he had a comfortable night. Sitting up in bed early in the morning and then later in the chair. States able to lie down flat but does have congestive sounds on auscultation. Also having hematuria today. Hemoglobin has remained stable. Patient did get tirofiban post PCI yesterday. Also having epistaxis. Medications: Reviewed: Yes Vitals/I&O/Wt Last Vital Signs Temp 98 F 08/31/22 04:00 Pulse 86 08/31/22 11:04 Resp 18 08/31/22 11:04 BP 94/62 08/31/22 11:04 Pulse Ox 96 08/31/22 11:04 O2 Del Method 08/31/22 10:15 O2 Flow Rate 3 08/30/22 10:30 08/30/22 08/31/22 08/31/22 22:59 06:59 14:59 Intake Total 90 / 476 200 / 676 240 / 240 Output Total 400 / 875 300 / 1175 500 / 500 Balance -310 / -399 -100 / -499 -260 / -260 Weight last 48 hrs Weight 76.158 kg Weight 77.065 kg Physical Exam Narrative: General: No acute distress, AO x3, sitting up HEENT: PERRLA, pupils bilaterally equal and reactive Chest: Normal vesicular breath sounds, no added sounds, equal good air entry bilaterally CVS: S1-S2 regular, soft pansystolic murmur radiating to anterior axillary line, no tachycardia, no gallops, no rubs Abdomen: Soft, nontender, no organomegaly, bowel sounds present Neuro: No focal deficits, no facial deformity, AO x3, power 5/5 in all limbs Extremity: Bilateral pitting edema up to knee 1+, improving. Urinary Catheter Management: Ahn: Cath Placed During This Visit: yes, but has since been removed by the nurse Reason for Continuing Indwelling Catheter: Decision to DC Catheter Urinary Catheter Date of Insertion: 08/19/22 Urinary Catheter Time of Insertion: 15:20 Date Urinary Catheter Removed: 08/26/22 Time Urinary Catheter Discontinued: 16:30 Data 08/31/22 03:57 08/31/22 03:57 A&P Assessment and plan (1) Congestive heart failure: Qualifiers: Heart failure type: systolic Heart failure chronicity: acute Qualified Code(s): I50.21 - Acute systolic (congestive) heart failure (2) CAD (coronary artery disease): (3) S/P right coronary artery (RCA) stent placement: (4) Gross hematuria: (5) Cardiomyopathy: Qualifiers: Cardiomyopathy type: ischemic Qualified Code(s): I25.5 - Ischemic cardiomyopathy (6) Atrial fibrillation with RVR: (7) BPH loc w urin obs/LUTS: (8) Community acquired pneumonia: (9) UTI (urinary tract infection): (10) HTN (hypertension): (11) Peripheral arterial disease: (12) Goals of care, counseling/discussion: Plan Acute systolic CHF exacerbation: Most likely ischemic cardiomyopathy. New onset. Severally diffuse hypokinesia of LV with EF of 15%, moderately dilated LV with mild to moderate MR and trace TR with PASP of 22 mmHg. Continue with IV Lasix 60 mg today. Plan to switch over to oral Lasix on discharge. Most likely will discharge on 60 mg twice daily with oral potassium daily. Continue with fluid restriction. Strict input output charting. Daily weights. CAD: Post PCI with JORDAN x1 to RCA. Continue with aspirin, Plavix, statin. Appreciate recent A1c, lipid panel. We will plan for LifeVest on discharge. Appreciate cardiology recommendations. Intermittent A-fib RVR: Rate controlled. Switch to amiodarone 200 mg daily. Start on metoprolol 12.5 mg twice daily. Uptitrate as per heart rate and blood pressures. Franky vas score: 5. Holding off on anticoagulation today given recurrence of hematuria. We will switch to Eliquis on discharge. Recurrent hematuria related to Ahn catheter: Had stopped but again restarted after use of tirofiban post PCI. Continue with Flomax. Continue to bladder scan to make sure that patient is not retaining. Continue to monitor hemoglobin. Patient continues to have ongoing hematuria will consult urology again for further recommendations. Holding on Lovenox for now. Appreciate urology recommendations. In case of recurrent hematuria he is might need cystoscopy but for now we are doing conservative management UTI: Continue ceftriaxone to finish a 5-day course. Follow-up urine culture. Aspiration pneumonia: Continue Augmentin to finish a 5-day course. Diet change as per swallow evaluation. Recent back surgery: We will consult with the primary surgeon tomorrow for reevaluation and possible suture removal. Full code. Speech evaluation. Dysphagia level 6 diet as per speech therapy. Full dose Lovenox will suffice as DVT prophylaxis. Protonix for PUD prophylaxis. Discharge planning: Plan to discharge back to SNF once medically ready possibly early next week after cardiac angiogram. Attestations Medical Necessity Statement*: Requires further hospitalization for management of acute systolic congestive heart failure in setting of ischemia post PCI to RCA, gross hematuria Diagnoses Congestive heart failure I50.21 Heart failure type: systolic Heart failure chronicity: acute CAD (coronary artery disease) I25.10 S/P right coronary artery (RCA) stent placement Z95.5 Gross hematuria R31.0 Cardiomyopathy I25.5 Cardiomyopathy type: ischemic Atrial fibrillation with RVR I48.91 BPH loc w urin obs/LUTS N40.1 Community acquired pneumonia J18.9 UTI (urinary tract infection) N39.0 HTN (hypertension) I10 Peripheral arterial disease I73.9 Goals of care, counseling/discussion Z71.89
--- NOTE | 2022-08-31 13:14 | PC.NURSE ---
Furosemide 60mg IVP resumed daily starting tomorrow. Lasix 60mg IVP ONCE ordered for todays dose per physician.
[2022-08-31] MEDS: FUROsemide 10 mg/mL SDV 10mL 60 MG IVP (13:27)
--- NOTE | 2022-08-31 13:47 | PC.OT ---
OT tx attempted x2 today. Pt sleeping soundly in a.m. and unable to rouse enough to participate in tx. In afternoon pt unavailable as he is being educated in use of life vest. Will attempt again tomorrow.
[2022-08-31] MEDS: tamsulosin 0.4 mg Capsule PO (17:32)
[2022-08-31 17:40] LABS: Basophils % 0.5 %; Eosinophils # 0.1 10^3/uL (0.0-0.8); Eosinophils % 0.6 %; Hematocrit 38.2 % (42.0-52.0); Hemoglobin 12.4 g/dL (11.7-16.6); Lymphocytes # 1.1 10^3/uL (0.8-4.8); Lymphocytes % 13.1 %; Mean Corpuscular HGB Conc 32.5 g/dL (30.0-36.0); Mean Corpuscular Hemoglobin 31.5 pg (28.0-34.0); Mean Platelet Volume 9.9 fL (7.4-10.4); Monocytes # 0.8 10^3/uL (0.2-0.9); Monocytes % 9.4 %; Neutrophils # 6.43 10^3/uL (1.8-7.7); Neutrophils % 75.9 %; Nucleated Red Blood Cells % 0 %; Platelet Count 319 10^3/cmm (130-400); Red Blood Count 3.94 10^6/uL (4.1-5.3); Red Cell Distribution Width 14.7 % (12.1-15.1); White Blood Count 8.5 10^3/uL (4.0-10.0)
[2022-08-31] MEDS: atorvastatin 40 mg Tablet PO (20:54)
[2022-08-31] MEDS: trazodone 50 mg Tablet 25 MG PO (20:55)
[2022-09-01] VITALS (17 sets, daily range): BP systolic 91–105; BP diastolic 61–75; PULSE 70–98; RESP 14–28; TEMP 36.4–36.6; O2SAT 90–100
[2022-09-01] MEDS: ipratropium-albuterol 3 mL Neb INHALATION ×4 (01:21→21:01)
[2022-09-01] MEDS: pantoprazole 40 mg SDV IVP (05:22)
--- NOTE | 2022-09-01 08:37 | PM.PN ---
Subjective Subjective: Patient is doing well. No chest pain. Hgb is stable. Vitals/I&O/Wt Last Vital Signs Temp 97.9 F 09/01/22 00:00 Pulse 73 09/01/22 06:00 Resp 26 H 09/01/22 04:00 BP 96/65 09/01/22 04:00 Pulse Ox 93 09/01/22 04:00 O2 Del Method 09/01/22 01:21 O2 Flow Rate 3 08/30/22 10:30 08/31/22 09/01/22 09/01/22 22:59 06:59 14:59 Intake Total 360 / 650 100 / 750 Output Total 815 / 1315 300 / 1615 Balance -455 / -665 -200 / -865 Weight last 48 hrs Weight 165 lb Weight 167 lb 14.4 oz Physical Exam Narrative: GENERAL: Patient is alert, awake and oriented x3. [] NECK: No jugular vein distension. [] HEENT: No cyanosis. No icterus. No pallor. [] HEART: Regular S1 and S2. No murmur, rub or gallop. [] LUNGS: Clear to auscultate bilaterally. [] CENTRAL NERVOUS SYSTEM: Grossly nonfocal. [] EXTREMITIES: Lower extremities with 1+ edema Urinary Catheter Management: Ahn: Cath Placed During This Visit: yes, but has since been removed by the nurse Reason for Continuing Indwelling Catheter: Decision to DC Catheter Urinary Catheter Date of Insertion: 08/19/22 Urinary Catheter Time of Insertion: 15:20 Date Urinary Catheter Removed: 08/26/22 Time Urinary Catheter Discontinued: 16:30 Data 08/31/22 17:33 08/31/22 03:57 A&P Assessment and plan (1) Congestive heart failure: Likely nonischemic cardiomyopathy however had severe mid RCA stenosis. Status post successful revascularization with JORDAN x1 to improve chances of LV recovery. Patient put on aspirin and Plavix. Continue for at least 1 year Continue metoprolol . Will initiate entersto based on heart rates. Qualifiers: Heart failure chronicity: acute Heart failure type: systolic Qualified Code(s): I50.21 - Acute systolic (congestive) heart failure (2) Atrial fibrillation with RVR: Heart rate is controlled. Continue amiodarone. Keep holding anticoagulation secondary to hematuria (3) Cardiomyopathy: Lasix restarted Qualifiers: Cardiomyopathy type: ischemic Qualified Code(s): I25.5 - Ischemic cardiomyopathy (4) Peripheral arterial disease: Continue current therapy. Plan His other problems are COPD Possible pneumonia Recent back surgery Patient is stable. Possible discharge in 1-2 days Attestations Medical Necessity Statement*: Care expected to cross 2 midnights. Coding Level of Care Code Acute Code for [facility] Diagnoses Congestive heart failure I50.21 Heart failure chronicity: acute Heart failure type: systolic Atrial fibrillation with RVR I48.91 Cardiomyopathy I25.5 Cardiomyopathy type: ischemic Peripheral arterial disease I73.9
[2022-09-01] MEDS: budesonide 0.5 mg/2 mL Neb INHALATION ×2 (08:47→21:01)
[2022-09-01] MEDS: amiodarone 200 mg Tablet PO (08:48)
[2022-09-01] MEDS: potassium chloride ER 20 mEq Tablet 40 MEQ PO (08:48)
[2022-09-01] MEDS: FUROsemide 10 mg/mL SDV 10mL 60 MG IVP (08:48)
[2022-09-01] MEDS: cefTRIAXone 1,000 MG in sodium chloride 0.9% (plus) 50 ML 100 MG IV (08:48)
[2022-09-01] MEDS: aspirin 81 mg EC Tablet PO (08:49)
[2022-09-01] MEDS: clopidogrel 75 mg Tablet PO (08:49)
[2022-09-01 09:42] LABS: Basophils % 0.3 %; Eosinophils # 0.1 10^3/uL (0.0-0.8); Eosinophils % 0.9 %; Hematocrit 37.1 % (42.0-52.0); Hemoglobin 12.1 g/dL (11.7-16.6); Mean Corpuscular HGB Conc 32.6 g/dL (30.0-36.0); Mean Corpuscular Hemoglobin 31.6 pg (28.0-34.0); Mean Corpuscular Volume 96.9 fl (80-94); Mean Platelet Volume 10.4 fL (7.4-10.4); Monocytes # 0.6 10^3/uL (0.2-0.9); Monocytes % 8.1 %; Neutrophils # 5.26 10^3/uL (1.8-7.7); Neutrophils % 76.4 %; Nucleated Red Blood Cells % 0 %; Platelet Count 280 10^3/cmm (130-400); Red Blood Count 3.83 10^6/uL (4.1-5.3); Red Cell Distribution Width 14.7 % (12.1-15.1); White Blood Count 6.9 10^3/uL (4.0-10.0)
[2022-09-01 10:02] LABS: Alanine Aminotransferase 12 U/L (0-41); Albumin Level 3.6 g/dL (3.5-5.2); Alkaline Phosphatase 150 U/L (40-130); Anion Gap 15.9 (5-19); Aspartate Amino Transferase 18 U/L (0-40); Blood Urea Nitrogen 11 mg/dL (8-23); Calcium 8.7 mg/dL (8.5-10.5); Carbon Dioxide 24 mmol/L (22-29); Chloride 97 mmol/L (98-107); Globulin 2.5 g/dL (1.3-4.6); Glucose 117 mg/dL (65-115); Osmolality Calculated 276 mOsm/kg (285-295); Potassium 3.9 mmol/L (3.5-5.1); Sodium 133 mmol/L (136-145); Total Bilirubin 0.7 mg/dL (0.15-1.2); Total Protein 6.1 g/dL (6.6-8.7)
--- NOTE | 2022-09-01 10:48 | PC.SOCIAL ---
IMM Updated Updated pt on IMM. No questions voiced. Provided pt a copy. Initialed, dated, & timed copy in chart.
[2022-09-01] MEDS: metoprolol tartrate 25 mg Tablet 12.5 MG PO ×2 (11:04→21:23)
--- NOTE | 2022-09-01 11:19 | P.PN_ITS ---
Subjective Subjective: No acute events overnight. Patient has remained hemodynamically stable and afebrile. Continues to remain on room air. Breathing better. States has a restful night. No active chest pain. LifeVest delivered yesterday. Continues to have hematuria. No urinary retention on bladder scan. Medications: Reviewed: Yes Vitals/I&O/Wt Last Vital Signs Temp 97.9 F 09/01/22 00:00 Pulse 79 09/01/22 08:00 Resp 18 09/01/22 08:00 BP 105/75 09/01/22 08:00 Pulse Ox 96 09/01/22 08:00 O2 Del Method 09/01/22 08:00 O2 Flow Rate 3 08/30/22 10:30 08/31/22 09/01/22 09/01/22 22:59 06:59 14:59 Intake Total 360 / 650 100 / 750 120 / 120 Output Total 815 / 1315 300 / 1615 300 / 300 Balance -455 / -665 -200 / -865 -180 / -180 Weight last 48 hrs Weight 74.843 kg Weight 76.158 kg Physical Exam Narrative: General: No acute distress, AO x3, sitting up HEENT: PERRLA, pupils bilaterally equal and reactive Chest: Normal vesicular breath sounds, no added sounds, equal good air entry bilaterally CVS: S1-S2 regular, soft pansystolic murmur radiating to anterior axillary line, no tachycardia, no gallops, no rubs Abdomen: Soft, nontender, no organomegaly, bowel sounds present Neuro: No focal deficits, no facial deformity, AO x3, power 5/5 in all limbs Extremity: Bilateral pitting edema up to knee 1+, improving. Urinary Catheter Management: Ahn: Cath Placed During This Visit: yes, but has since been removed by the nurse Reason for Continuing Indwelling Catheter: Decision to DC Catheter Urinary Catheter Date of Insertion: 08/19/22 Urinary Catheter Time of Insertion: 15:20 Date Urinary Catheter Removed: 08/26/22 Time Urinary Catheter Discontinued: 16:30 Data 09/01/22 09:07 09/01/22 09:07 A&P Assessment and plan (1) Gross hematuria: (2) Congestive heart failure: Qualifiers: Heart failure chronicity: acute Heart failure type: systolic Qualified Code(s): I50.21 - Acute systolic (congestive) heart failure (3) CAD (coronary artery disease): (4) S/P right coronary artery (RCA) stent placement: (5) Cardiomyopathy: Qualifiers: Cardiomyopathy type: ischemic Qualified Code(s): I25.5 - Ischemic cardiomyopathy (6) Atrial fibrillation with RVR: (7) BPH loc w urin obs/LUTS: (8) Community acquired pneumonia: (9) UTI (urinary tract infection): (10) HTN (hypertension): (11) Peripheral arterial disease: (12) Goals of care, counseling/discussion: Plan Recurrent hematuria related to Ahn catheter: Had stopped but again restarted after use of tirofiban post PCI. Continue with Flomax. Continue to bladder scan to make sure that patient is not retaining. Continue to monitor hemoglobin. For now both hemoglobin and platelet count stable Care discussed in detail with Dr. Saez. We will plan to reexamine patient and possible cystoscopy within next 24 hours. Acute systolic CHF exacerbation: Most likely ischemic cardiomyopathy. New onset. Severally diffuse hypokinesia of LV with EF of 15%, moderately dilated LV with mild to moderate MR and trace TR with PASP of 22 mmHg. Continue with IV Lasix 60 mg today. Plan to switch over to oral Lasix on discharge. Most likely will discharge on 60 mg twice daily with oral potassium daily. Continue with fluid restriction. Strict input output charting. Daily weights. LifeVest arranged. CAD: Post PCI with JORDAN x1 to RCA. Continue with aspirin, Plavix, statin. Appreciate recent A1c, lipid panel. Appreciate cardiology recommendations. Intermittent A-fib RVR: Rate controlled. Switch to amiodarone 200 mg daily. Start on metoprolol 12.5 mg twice daily. Uptitrate as per heart rate and blood pressures. Franky vas score: 5. Holding off on anticoagulation today given recurrence of hematuria. We will switch to Eliquis on discharge. Patient did have groin hematoma postcardiac catheterization, epistaxis and oozin g from multiple sites but all have resolved except hematuria. Platelet count has remained stable. UTI: Continue ceftriaxone to finish a 5-day course. Follow-up urine culture. Aspiration pneumonia: Continue Augmentin to finish a 5-day course. Diet change as per swallow evaluation. Recent back surgery: We will consult with the primary surgeon tomorrow for reevaluation and possible suture removal. Full code. Speech evaluation. Dysphagia level 6 diet as per speech therapy. Full dose Lovenox will suffice as DVT prophylaxis. Protonix for PUD prophylaxis. Discharge planning: Plan to discharge back to SNF once medically stable and hematuria resolved. Attestations Medical Necessity Statement*: Requires further hospitalization for management of recurrent hematuria in a patient who is post PCI to RCA with acute systolic congestive heart failure with severe LV dysfunction with EF of 15%, atrial fibrillation with need to discharge on anticoagulation Diagnoses Gross hematuria R31.0 Congestive heart failure I50.21 Heart failure chronicity: acute Heart failure type: systolic CAD (coronary artery disease) I25.10 S/P right coronary artery (RCA) stent placement Z95.5 Cardiomyopathy I25.5 Cardiomyopathy type: ischemic Atrial fibrillation with RVR I48.91 BPH loc w urin obs/LUTS N40.1 Community acquired pneumonia J18.9 UTI (urinary tract infection) N39.0 HTN (hypertension) I10 Peripheral arterial disease I73.9 Goals of care, counseling/discussion Z71.89
--- NOTE | 2022-09-01 11:39 | PM.PN ---
Subjective Subjective: Pt reoirts improvement of Back pain following Kyphoplasty. Vitals/I&O/Wt Last Vital Signs Temp 97.9 F 09/01/22 00:00 Pulse 79 09/01/22 08:00 Resp 18 09/01/22 08:00 BP 105/75 09/01/22 08:00 Pulse Ox 96 09/01/22 08:00 O2 Del Method 09/01/22 08:00 O2 Flow Rate 3 08/30/22 10:30 08/31/22 09/01/22 09/01/22 22:59 06:59 14:59 Intake Total 360 / 650 100 / 750 120 / 120 Output Total 815 / 1315 300 / 1615 675 / 675 Balance -455 / -665 -200 / -865 -555 / -555 Weight last 48 hrs Weight 165 lb Weight 167 lb 14.4 oz Physical Exam Narrative: Patient presents alert and oriented x3 with a good general appearance normal mood and affect. Normal coordination normal stability. Sutures removed. Mild tenderness around the incisional site with the incision appear to be healing nicely. No signs of erythema or drainage. No signs of infection. Patient denies any fevers or chills. 5/5 motor strength both lower extremities with negative straight leg raise bilaterally. Calves are supple no medial thigh tenderness. Pulses are 2+ at the dorsalis pedis and posterior tibial region. Good capillary refill throughout normal sensation light touch both lower extremities. Urinary Catheter Management: Ahn: Cath Placed During This Visit: yes, but has since been removed by the nurse Reason for Continuing Indwelling Catheter: Decision to DC Catheter Urinary Catheter Date of Insertion: 08/19/22 Urinary Catheter Time of Insertion: 15:20 Date Urinary Catheter Removed: 08/26/22 Time Urinary Catheter Discontinued: 16:30 Data 09/01/22 09:07 09/01/22 09:07 A&P Assessment and plan (1) Compression fx, lumbar spine: Plan sutures removed and will f/u in Ortho office in 4 wks. Call if Having more problems Attestations Medical Necessity Statement*: defer to medical team Coding Level of Care Code Acute Code for [facility] Diagnoses Compression fx, lumbar spine S32.000A
--- NOTE | 2022-09-01 13:54 | SUR.HOLD ---
Sutures where removed per ortho PA orders. Incisions appeared dry and intact with no dehiscence. no redness surrounding tissue.
[2022-09-01] MEDS: tamsulosin 0.4 mg Capsule PO (18:27)
--- NOTE | 2022-09-01 19:13 | P.PN_ITS ---
Subjective Subjective: Urology follow-up: Was asked to reevaluate when he started having gross hematuria again without i nstrumentation of the bladder. It did occur though after being heavily anticoagulated and was having other signs of systemic bleeding as well. He thinks the bleeding has reduced somewhat but his urine is still red. No trouble with clot occlusion etc. No dysuria. I reviewed with him in detail the options which would include continued conservative management versus endoscopic evaluation of his urethra prostate and bladder. He does need to be on chronic anticoagulation so we have elected to proceed with bedside flexible cystoscopy tomorrow. Vitals/I&O/Wt Last Vital Signs Temp 97.7 F 09/02/22 07:28 Pulse 79 09/02/22 07:45 Resp 16 09/02/22 07:45 BP 80/45 09/02/22 07:28 Pulse Ox 96 09/02/22 07:45 O2 Del Method 09/02/22 07:45 O2 Flow Rate 3 08/30/22 10:30 09/01/22 09/02/22 09/02/22 22:59 06:59 14:59 Intake Total 720 / 890 0 / 0 Output Total 300 / 975 Balance 720 / 215 -300 / -85 0 / 0 Weight last 48 hrs Weight 170 lb 1 oz Weight 165 lb Physical Exam Const: COMMON NORMALS: no acute distress, average body habitus and patient oriented x3 HENMT: COMMON NORMALS: normocephalic and atraumatic HEAD & SCALP: normocephalic and atraumatic Eye: COMMON NORMALS: no scleral icterus Neck/C-Spine: OTHER: Good range of motion Chest: OTHER: All movements Resp: COMMON NORMALS: normal respiratory effort GI: OTHER: Soft, nontender, bladder nondistended. No CVA tenderness : COMMON NORMALS: Yes no CVA tenderness BLADDER/KIDNEY EXAM: Yes no CVA tenderness Back/Pelvis: COMMON NORMALS: no CVA tenderness Neuro: COMMON NORMALS: patient oriented x3 Psych: OTHER: Pleasant cooperative exam. Urinary Catheter Management: Ahn: Cath Placed During This Visit: yes, but has since been removed by the nurse Reason for Continuing Indwelling Catheter: Decision to DC Catheter Urinary Catheter Date of Insertion: 08/19/22 Urinary Catheter Time of Insertion: 15:20 Date Urinary Catheter Removed: 08/26/22 Time Urinary Catheter Discontinued: 16:30 Data 04/06/23 04:10 09/02/22 04:10 A&P Assessment and plan (1) Gross hematuria: Plan for flexible cystoscopy tomorrow. (2) Chronic anticoagulation: Attestations Medical Necessity Statement*: See attending Coding Level of Care Code Acute Code for [facility] Diagnoses Gross hematuria R31.0 Chronic anticoagulation Z79.01
[2022-09-01] MEDS: atorvastatin 40 mg Tablet PO (21:23)
[2022-09-01] MEDS: trazodone 50 mg Tablet 25 MG PO (23:53)
[2022-09-02] VITALS (51 sets, daily range): BP systolic 72–111; BP diastolic 37–75; PULSE 66–88; RESP 10–34; TEMP 36.2–37.1; O2SAT 82–100; BMI 25.1
[2022-09-02] MEDS: ipratropium-albuterol 3 mL Neb INHALATION ×4 (02:09→20:23)
[2022-09-02 04:59] LABS: Basophils % 0.4 %; Eosinophils # 0.1 10^3/uL (0.0-0.8); Eosinophils % 1.3 %; Hematocrit 34.1 % (42.0-52.0); Hemoglobin 11.1 g/dL (11.7-16.6); Lymphocytes # 1.4 10^3/uL (0.8-4.8); Lymphocytes % 18.1 %; Mean Corpuscular HGB Conc 32.6 g/dL (30.0-36.0); Mean Corpuscular Hemoglobin 31.6 pg (28.0-34.0); Mean Corpuscular Volume 97.2 fl (80-94); Mean Platelet Volume 10.6 fL (7.4-10.4); Monocytes # 0.7 10^3/uL (0.2-0.9); Monocytes % 9.3 %; Neutrophils # 5.32 10^3/uL (1.8-7.7); Neutrophils % 70.4 %; Nucleated Red Blood Cells % 0 %; Platelet Count 266 10^3/cmm (130-400); Red Blood Count 3.51 10^6/uL (4.1-5.3); Red Cell Distribution Width 14.9 % (12.1-15.1); White Blood Count 7.6 10^3/uL (4.0-10.0)
[2022-09-02] MEDS: pantoprazole 40 mg SDV IVP (05:49)
[2022-09-02 06:46] LABS: Alanine Aminotransferase 12 U/L (0-41); Albumin Level 3.4 g/dL (3.5-5.2); Alkaline Phosphatase 137 U/L (40-130); Anion Gap 16.8 (5-19); Aspartate Amino Transferase 18 U/L (0-40); Blood Urea Nitrogen 15 mg/dL (8-23); Calcium 8.5 mg/dL (8.5-10.5); Carbon Dioxide 23 mmol/L (22-29); Chloride 99 mmol/L (98-107); Globulin 2.4 g/dL (1.3-4.6); Glucose 91 mg/dL (65-115); Osmolality Calculated 280 mOsm/kg (285-295); Potassium 3.8 mmol/L (3.5-5.1); Sodium 135 mmol/L (136-145); Total Bilirubin 0.6 mg/dL (0.15-1.2); Total Protein 5.8 g/dL (6.6-8.7)
[2022-09-02] MEDS: budesonide 0.5 mg/2 mL Neb INHALATION ×2 (07:43→20:23)
--- NOTE | 2022-09-02 08:51 | P.PN_ITS ---
Subjective Subjective: Denies chest pain. Blood pressure is low. Metoprolol and lasix held. Vitals/I&O/Wt Last Vital Signs Temp 97.7 F 09/02/22 07:28 Pulse 79 09/02/22 07:45 Resp 16 09/02/22 07:45 BP 80/45 09/02/22 07:28 Pulse Ox 96 09/02/22 07:45 O2 Del Method 09/02/22 07:45 O2 Flow Rate 3 08/30/22 10:30 09/01/22 09/02/22 09/02/22 22:59 06:59 14:59 Intake Total 720 / 890 0 / 0 Output Total 300 / 975 Balance 720 / 215 -300 / -85 0 / 0 Weight last 48 hrs Weight 170 lb 1 oz Weight 165 lb Physical Exam Narrative: GENERAL: Patient is alert, awake and oriented x3. [] NECK: No jugular vein distension. [] HEENT: No cyanosis. No icterus. No pallor. [] HEART: Regular S1 and S2. No murmur, rub or gallop. [] LUNGS: Clear to auscultate bilaterally. [] CENTRAL NERVOUS SYSTEM: Grossly nonfocal. [] EXTREMITIES: Lower extremities with 1+ edema Urinary Catheter Management: Ahn: Cath Placed During This Visit: yes, but has since been removed by the nurse Reason for Continuing Indwelling Catheter: Decision to DC Catheter Urinary Catheter Date of Insertion: 08/19/22 Urinary Catheter Time of Insertion: 15:20 Date Urinary Catheter Removed: 08/26/22 Time Urinary Catheter Discontinued: 16:30 Data 09/02/22 04:10 09/02/22 04:10 A&P Assessment and plan (1) Congestive heart failure: Likely nonischemic cardiomyopathy however had severe mid RCA stenosis. Status post successful revascularization with JORDAN x1 to improve chances of LV recovery. Patient put on aspirin and Plavix. Continue for at least 1 year Holding metoprolol because of hypotension this AM. Getting IV fluids Qualifiers: Heart failure chronicity: acute Heart failure type: systolic Qualified Code(s): I50.21 - Acute systolic (congestive) heart failure (2) Atrial fibrillation with RVR: Heart rate is controlled. Continue amiodarone. Keep holding anticoagulation secondary to hematuria. Plan for cystoscopy tomorrow. (3) Cardiomyopathy: Lasix held secondary to hypotension. Restart tomorrow PO lasix Qualifiers: Cardiomyopathy type: ischemic Qualified Code(s): I25.5 - Ischemic cardiomyopathy (4) Peripheral arterial disease: Continue current therapy. Plan His other problems are COPD Possible pneumonia Recent back surgery Patient is hypotensive. Attestations Medical Necessity Statement*: Care expected to cross 2 midnights. Coding Level of Care Code Acute Code for [facility] Diagnoses Congestive heart failure I50.21 Heart failure chronicity: acute Heart failure type: systolic Atrial fibrillation with RVR I48.91 Cardiomyopathy I25.5 Cardiomyopathy type: ischemic Peripheral arterial disease I73.9
[2022-09-02] MEDS: clopidogrel 75 mg Tablet PO (09:02)
[2022-09-02] MEDS: potassium chloride ER 20 mEq Tablet 40 MEQ PO (09:02)
[2022-09-02] MEDS: sodium chloride 0.9% 250 ML 83 ML IV (09:02)
[2022-09-02] MEDS: amiodarone 200 mg Tablet PO (09:02)
[2022-09-02] MEDS: aspirin 81 mg EC Tablet PO (09:03)
--- NOTE | 2022-09-02 12:57 | PM.PN ---
Subjective Subjective: Urology follow-up: Reports that the hematuria has for the most part stopped. His urine is very slightly pink. No clots. He reports that he is voiding well. Denies any pain burning fever or chills. As we discussed yesterday recommended cystoscopy at bedside. PROCEDURE NOTE: FLEXIBLE CYSTOSCOPY Prepped and draped in usual sterile fashion. 2% lidocaine jelly instilled into the urethra for lubrication and local anesthesia. Flexible cystoscope was advanced under direct vision into the urethral meatus and into the bladder without difficulty. Urethra appeared normal. Prostate was mildly inflamed but without any other significant pathology. Bladder was somewhat distended. He had some old very small clot which was irrigated free. Bladder wall was carefully examined. There were no tumors. He did have some inflammatory changes on the posterior wall just cephalad to the left trigone consistent with recent catheterization. No active bleeding. Efflux was clear bilaterally. Bladder was drained procedure completed. Tolerated the procedure well without complications. FINDINGS: Essentially normal cystoscopy with mild inflammatory changes. No active bleeding. No large clots. RECOMMENDATIONS: Utilize anticoagulation as needed. No further work-up at this time. Vitals/I&O/Wt Last Vital Signs Temp 98.5 F 09/02/22 11:23 Pulse 73 09/02/22 11:23 Resp 15 09/02/22 11:23 BP 90/57 09/02/22 11:23 Pulse Ox 99 09/02/22 11:23 O2 Del Method 09/02/22 11:23 O2 Flow Rate 3 08/30/22 10:30 09/01/22 09/02/22 09/02/22 22:59 06:59 14:59 Intake Total 720 / 890 0 / 0 Output Total 300 / 975 Balance 720 / 215 -300 / -85 0 / 0 Weight last 48 hrs Weight 170 lb 1 oz Weight 165 lb Physical Exam Const: COMMON NORMALS: no acute distress, average body habitus and patient oriented x3 HENMT: COMMON NORMALS: normocephalic and atraumatic HEAD & SCALP: normocephalic and atraumatic Neck/C-Spine: OTHER: Good range of motion Chest: OTHER: All movements Resp: COMMON NORMALS: normal respiratory effort GI: OTHER: Soft, nontender, bladder nondistended. No CVA tenderness : OTHER: Normal circumcised phallus. No lesions. Meatus normal without discharge. Scrotum is grossly normal. Testicles sent bilateral without mass or tenderness. Cords normal. No obvious palpable inguinal canal hernia. Extremity: NARRATIVE EXTREMITY EXAM: Moves all extremities Neuro: COMMON NORMALS: patient oriented x3 Psych: OTHER: Pleasant cooperative exam. Urinary Catheter Management: Ahn: Cath Placed During This Visit: yes, but has since been removed by the nurse Reason for Continuing Indwelling Catheter: Decision to DC Catheter Urinary Catheter Date of Insertion: 08/19/22 Urinary Catheter Time of Insertion: 15:20 Date Urinary Catheter Removed: 08/26/22 Time Urinary Catheter Discontinued: 16:30 Data 09/02/22 04:10 09/02/22 04:10 A&P Assessment and plan (1) Gross hematuria: Has resolved. I expect the initial episode was related to mild catheter trauma on anticoagulation and the second episode related to significant anticoagulation with incompletely healed post Ahn catheter irritation. Has not had a contrasted study demonstrating his upper urinary tracts but what was visualized appear to be structurally normal without masses. No evidence of upper urinary tract bleeding on that noncontrasted CT scan. Hold on further work-up Call for increasing recurrent hematuria. (2) Chronic anticoagulation: Plan SEE HPI Attestations Medical Necessity Statement*: See attending Coding Level of Care Code Acute Code for g Fwd Diagnoses Gross hematuria R31.0 Chronic anticoagulation Z79.01
--- NOTE | 2022-09-02 13:02 | P.PN_ITS ---
Subjective Subjective: No acute events overnight. Today morning on examination patient sleeping in bed. Wakes up to verbal stimulus. Today morning blood pressures are slightly soft. His dose of metoprolol and Lasix has been withheld and he has been given slow IV fluid bolus after which her blood pressures improved. Patient did undergo cystoscopy with Dr. Saez today. Hematuria slightly resolved as compared to yesterday. Medications: Reviewed: Yes Vitals/I&O/Wt Last Vital Signs Temp 98.5 F 09/02/22 11:23 Pulse 73 09/02/22 11:23 Resp 15 09/02/22 11:23 BP 90/57 09/02/22 11:23 Pulse Ox 99 09/02/22 11:23 O2 Del Method 09/02/22 11:23 O2 Flow Rate 3 08/30/22 10:30 09/01/22 09/02/22 09/02/22 22:59 06:59 14:59 Intake Total 720 / 890 680 / 680 Output Total 300 / 975 400 / 400 Balance 720 / 215 -300 / -85 280 / 280 Weight last 48 hrs Weight 77.139 kg Weight 74.843 kg Physical Exam Narrative: General: No acute distress, AO x3, lying comfortably in bed, still having hematuria, HEENT: PERRLA, pupils bilaterally equal and reactive Chest: Normal vesicular breath sounds, no added sounds, equal good air entry bilaterally CVS: S1-S2 regular, soft pansystolic murmur radiating to anterior axillary line, no tachycardia, no gallops, no rubs Abdomen: Soft, nontender, no organomegaly, bowel sounds present Neuro: No focal deficits, no facial deformity, AO x3, power 5/5 in all limbs Extremity: Bilateral pitting edema up to knee 1+, improving. Urinary Catheter Management: Ahn: Cath Placed During This Visit: yes, but has since been removed by the nurse Reason for Continuing Indwelling Catheter: Decision to DC Catheter Urinary Catheter Date of Insertion: 08/19/22 Urinary Catheter Time of Insertion: 15:20 Date Urinary Catheter Removed: 08/26/22 Time Urinary Catheter Discontinued: 16:30 Data 09/02/22 04:10 09/02/22 04:10 A&P Assessment and plan (1) Gross hematuria: (2) Congestive heart failure: Qualifiers: Heart failure chronicity: acute Heart failure type: systolic Qualified Code(s): I50.21 - Acute systolic (congestive) heart failure (3) CAD (coronary artery disease): (4) S/P right coronary artery (RCA) stent placement: (5) Cardiomyopathy: Qualifiers: Cardiomyopathy type: ischemic Qualified Code(s): I25.5 - Ischemic cardiomyopathy (6) Atrial fibrillation with RVR: (7) BPH loc w urin obs/LUTS: (8) Community acquired pneumonia: (9) UTI (urinary tract infection): (10) HTN (hypertension): (11) Peripheral arterial disease: (12) Goals of care, counseling/discussion: Plan Recurrent hematuria related to Ahn catheter: Had stopped but again restarted after use of tirofiban post PCI. Continue with Flomax. Continue to bladder scan to make sure that patient is not retaining. Continue to monitor hemoglobin. For now both hemoglobin and platelet count stable Care discussed in detail with Dr. Saez. Plan for cystoscopy today. Con tinue to hold off on Lovenox. Acute systolic CHF exacerbation: Most likely ischemic cardiomyopathy. New onset. Severally diffuse hypokinesia of LV with EF of 15%, moderately dilated LV with mild to moderate MR and trace TR with PASP of 22 mmHg. Patient overall 7.5 L negative. Blood pressure slightly soft today. Hold off on IV Lasix for today. We will switch to oral Lasix 60 mg twice daily from a.m tomorrow. Continue with fluid restriction. Strict input output charting. Daily weights. LifeVest arranged. CAD: Post PCI with JORDAN x1 to RCA. Continue with aspirin, Plavix, statin. Appreciate recent A1c, lipid panel. Appreciate cardiology recommendations. Intermittent A-fib RVR: Rate controlled. Switch to amiodarone 200 mg daily. Given soft blood pressures we will hold off on metoprolol 12.5 mg twice daily. Franky vas score: 5. Holding off on anticoagulation today given recurrence of hematuria. We will switch to Eliquis on discharge. Patient did have groin hematoma postcardiac catheterization, epistaxis and oozing from multiple sites but all have resolved except hematuria. Platelet count has remained stable. UTI: Continue ceftriaxone to finish a 5-day course. Follow-up urine culture. Aspiration pneumonia: Continue Augmentin to finish a 5-day course. Diet change as per swallow evaluation. Recent back surgery: We will consult with the primary surgeon tomorrow for reevaluation and possible suture removal. Full code. Speech evaluation. Dysphagia level 6 diet as per speech therapy. Full dose Lovenox will suffice as DVT prophylaxis. Protonix for PUD prophylaxis. Discharge planning: Plan to discharge back to SNF once medically stable and hematuria resolved. Attestations Medical Necessity Statement*: Requires further hospitalization for management of gross hematuria in setting of recent PCI for new ischemic cardiomyopathy with EF of 20% Time Spent in Patient Care: Greater than 35 minutes Diagnoses Gross hematuria R31.0 Congestive heart failure I50.21 Heart failure chronicity: acute Heart failure type: systolic CAD (coronary artery disease) I25.10 S/P right coronary artery (RCA) stent placement Z95.5 Cardiomyopathy I25.5 Cardiomyopathy type: ischemic Atrial fibrillation with RVR I48.91 BPH loc w urin obs/LUTS N40.1 Community acquired pneumonia J18.9 UTI (urinary tract infection) N39.0 HTN (hypertension) I10 Peripheral arterial disease I73.9 Goals of care, counseling/discussion Z71.89
[2022-09-02] MEDS: sodium chloride 0.9% 1,000 ML 50 ML IV (13:11)
[2022-09-02] MEDS: lidocaine 2% Urojet 20 mL XX (13:51)
[2022-09-02] MEDS: tamsulosin 0.4 mg Capsule PO (18:09)
[2022-09-02] MEDS: atorvastatin 40 mg Tablet PO (20:55)
[2022-09-03] VITALS (41 sets, daily range): BP systolic 88–119; BP diastolic 51–80; PULSE 67–93; RESP 12–37; TEMP 35.9–36.9; O2SAT 94–97
[2022-09-03 04:21] LABS: Basophils % 0.4 %; Eosinophils # 0.1 10^3/uL (0.0-0.8); Eosinophils % 1.7 %; Hematocrit 34.4 % (42.0-52.0); Hemoglobin 11.1 g/dL (11.7-16.6); Lymphocytes # 1.5 10^3/uL (0.8-4.8); Lymphocytes % 19.7 %; Mean Corpuscular HGB Conc 32.3 g/dL (30.0-36.0); Mean Corpuscular Hemoglobin 31.8 pg (28.0-34.0); Mean Corpuscular Volume 98.6 fl (80-94); Mean Platelet Volume 10.7 fL (7.4-10.4); Monocytes # 0.7 10^3/uL (0.2-0.9); Monocytes % 8.5 %; Neutrophils # 5.28 10^3/uL (1.8-7.7); Neutrophils % 69.4 %; Nucleated Red Blood Cells % 0 %; Platelet Count 247 10^3/cmm (130-400); Red Blood Count 3.49 10^6/uL (4.1-5.3); Red Cell Distribution Width 14.8 % (12.1-15.1); White Blood Count 7.6 10^3/uL (4.0-10.0)
[2022-09-03] MEDS: pantoprazole 40 mg SDV IVP (04:33)
[2022-09-03 04:40] LABS: Alanine Aminotransferase 11 U/L (0-41); Albumin Level 3.3 g/dL (3.5-5.2); Alkaline Phosphatase 122 U/L (40-130); Aspartate Amino Transferase 16 U/L (0-40); Blood Urea Nitrogen 12 mg/dL (8-23); Calcium 8.5 mg/dL (8.5-10.5); Carbon Dioxide 22 mmol/L (22-29); Chloride 101 mmol/L (98-107); Globulin 2.3 g/dL (1.3-4.6); Glucose 89 mg/dL (65-115); Osmolality Calculated 275 mOsm/kg (285-295); Sodium 133 mmol/L (136-145); Total Bilirubin 0.6 mg/dL (0.15-1.2); Total Protein 5.6 g/dL (6.6-8.7)
--- NOTE | 2022-09-03 06:16 | PC.NURSE ---
I have reviewed and agree with the charting of Joanne Macias RN.
[2022-09-03] MEDS: ipratropium-albuterol 3 mL Neb INHALATION (08:21)
[2022-09-03] MEDS: budesonide 0.5 mg/2 mL Neb INHALATION (08:21)
--- NOTE | 2022-09-03 08:29 | PM.PN ---
Subjective Subjective: Patient is doing well. No chest pain. Vitals/I&O/Wt Last Vital Signs Temp 98.1 F 09/03/22 08:00 Pulse 84 09/03/22 08:00 Resp 18 09/03/22 08:00 BP 95/58 09/03/22 08:00 Pulse Ox 96 09/03/22 08:00 O2 Del Method 09/03/22 08:00 O2 Flow Rate 3 08/30/22 10:30 09/02/22 09/03/22 09/03/22 22:59 06:59 14:59 Intake Total 384.167 / 1314.167 120 / 120 Output Total 300 / 700 300 / 1000 Balance 84.167 / 614.167 -300 / 314.167 120 / 120 Weight last 48 hrs Weight 171 lb 9.6 oz Weight 170 lb 1 oz Physical Exam Narrative: GENERAL: Patient is alert, awake and oriented x3. [] NECK: No jugular vein distension. [] HEENT: No cyanosis. No icterus. No pallor. [] HEART: Regular S1 and S2. No murmur, rub or gallop. [] LUNGS: Clear to auscultate bilaterally. [] CENTRAL NERVOUS SYSTEM: Grossly nonfocal. [] EXTREMITIES: Lower extremities with 1+ edema Urinary Catheter Management: Ahn: Cath Placed During This Visit: yes, but has since been removed by the nurse Reason for Continuing Indwelling Catheter: Decision to DC Catheter Urinary Catheter Date of Insertion: 08/19/22 Urinary Catheter Time of Insertion: 15:20 Date Urinary Catheter Removed: 08/26/22 Time Urinary Catheter Discontinued: 16:30 Data 09/03/22 02:58 09/03/22 02:58 A&P Assessment and plan (1) Congestive heart failure: Likely nonischemic cardiomyopathy however had severe mid RCA stenosis. Status post successful revascularization with JORDAN x1 to improve chances of LV recovery. Patient put on aspirin and Plavix. Continue for at least 1 year Keep holding antihypertensive medications. Can restart PO lasix 20mg BID tomorrow. As outpatient we will try to add metoprolol and enteresto if blood pressure allows Qualifiers: Heart failure chronicity: acute Heart failure type: systolic Qualified Code(s): I50.21 - Acute systolic (congestive) heart failure (2) Atrial fibrillation with RVR: Continue amiodarone. Keep holding anticoagulation given hematuria (3) Cardiomyopathy: Lasix to be restarted. Qualifiers: Cardiomyopathy type: ischemic Qualified Code(s): I25.5 - Ischemic cardiomyopathy (4) Peripheral arterial disease: Continue current therapy. Plan His other problems are COPD Possible pneumonia Recent back surgery Blood pressure has improved, lasix will be restarted. Possible discharge tomorrow is stable. Attestations Medical Necessity Statement*: Care expected to cross 2 midnights. Coding Level of Care Code Acute Code for [facility] Diagnoses Congestive heart failure I50.21 Heart failure chronicity: acute Heart failure type: systolic Atrial fibrillation with RVR I48.91 Cardiomyopathy I25.5 Cardiomyopathy type: ischemic Peripheral arterial disease I73.9
[2022-09-03] MEDS: aspirin 81 mg EC Tablet PO (08:46)
[2022-09-03] MEDS: potassium chloride ER 20 mEq Tablet 40 MEQ PO (08:46)
[2022-09-03] MEDS: clopidogrel 75 mg Tablet PO (08:46)
[2022-09-03] MEDS: amiodarone 200 mg Tablet PO (08:46)
--- NOTE | 2022-09-03 10:12 | PC.SOCIAL ---
IMM Updated Updated pt on IMM. No questions voiced. Provided pt a copy. Initialed, dated, & timed copy in chart.
--- NOTE | 2022-09-03 11:12 | P.PN_ITS ---
Subjective Subjective: Mr. Pelaez understandably frustrated that he is still in the hospital. He continues to have pink tinged urine. Cystoscopy yesterday was unremarkable. He is on aspirin and Plavix given recent PCI to RCA. Stitches were removed from orthopedic surgical sites yesterday by Dr. May. He has been on Lasix for much of his hospital stay. This has been stopped as has metolazone. Metoprolol was held yesterday due to hypotension. Blood pressures have been low but are improved with adjustments to medications and administration of IV fluids. He has what is felt to likely be nonischemic systolic cardiomyopathy chronically though did have severe RCA stenosis. Echocardiogram on August 19 showed ejection fraction of 15%. Has had atrial fibrillation with rapid ventricular response. Is on amiodarone. Not on an ROMÁN inhibitor nor an ARB secondary to hypotension. Medications: Reviewed: Yes Vitals/I&O/Wt Last Vital Signs Temp 96.8 F L 09/03/22 10:47 Pulse 86 09/03/22 10:47 Resp 20 H 09/03/22 10:47 BP 107/70 09/03/22 10:47 Pulse Ox 95 09/03/22 10:47 O2 Del Method 09/03/22 10:47 O2 Flow Rate 3 08/30/22 10:30 09/02/22 09/03/22 09/03/22 22:59 06:59 14:59 Intake Total 384.167 / 1314.167 120 / 120 Output Total 300 / 700 300 / 1000 Balance 84.167 / 614.167 -300 / 314.167 120 / 120 Weight last 48 hrs Weight 77.836 kg Weight 77.139 kg Physical Exam Narrative: Awake and alert. Sitting up in chair. Some kyphosis is noted. Lungs are clear to auscultation without any rales rhonchi or wheezes noted. Regular rhythm. Currently sinus rhythm by my evaluation. No murmurs. No pitting edema. Abdomen is soft. Speech is clear, face symmetric, moving all extremities. A bit ornery but cooperative. Urinary Catheter Management: Ahn: Cath Placed During This Visit: yes, but has since been removed by the nurse Reason for Continuing Indwelling Catheter: Decision to DC Catheter Urinary Catheter Date of Insertion: 08/19/22 Urinary Catheter Time of Insertion: 15:20 Date Urinary Catheter Removed: 08/26/22 Time Urinary Catheter Discontinued: 16:30 Data 09/03/22 02:58 09/03/22 02:58 A&P Assessment and plan (1) Community acquired pneumonia: Present on admission. Empirically covered. Subsequently had possibility of aspiration event for which he received Augmentin. (2) Atrial fibrillation with RVR: Intermittent noted at presentation. On amiodarone and low-dose beta-ashli could. Not on full anticoagulation currently secondary to recurrent issues with gross hematuria. Had previously been on diltiazem though has not been effective this hospital stay. (3) Cardiomyopathy: Acute systolic CHF this hospital stay. New diagnosis from what I have gathered. EF was 15% prior to RCA stent placed this hospital stay. Not currently on an ROMÁN inhibitor nor an ARB secondary to blood pressures. Qualifiers: Cardiomyopathy type: ischemic Qualified Code(s): I25.5 - Ischemic cardiomyopathy (4) Peripheral arterial disease: Was on cilostazol and pentoxifylline prior to admission though both currently held due to issues with hematuria and bleeding. Has peripheral stents and known claudication. (5) COPD (chronic obstructive pulmonary disease): Severely exacerbated at presentation in part secondary to pneumonia. Improved. (6) UTI (urinary tract infection): Diagnosis based on gross hematuria though urine cultures have been negative. Empirically treated with Rocephin. (7) Gross hematuria: Initially occurring with catheter placement and resolved with catheter removal but recurred again with anticoagulation. Normal cystoscopy on 09/02/[address] Kaia medina. (8) BPH loc w urin obs/LUTS: On Flomax (9) S/P right coronary artery (RCA) stent placement: This hospital stay, on aspirin and Plavix (10) HTN (hypertension): History with blood pressures at lower ranges of normal this hospital stay recently. Intermittent systolic pressures into the 80s though generally impr denis last 24 to 48 hours. (11) Status post kyphoplasty: At L1, L3 and L4 on August 06 of this year Plan Monitor blood pressures Need to consider initiation of low-dose ROMÁN inhibitor or low-dose ARB Blood pressures are such currently not getting diuretics though I am this he will need them longer term He will require close monitoring of weight, fluid intake and salt intake He has been done had skilled placement so working on arranging home health care We will need to review with cardiology optimal antiplatelet regimen for both coronary and peripheral vascular disease along with ideal anticoagulation recommendations given EF of 15% and intermittent atrial fibrillation and weigh this with recurrent gross hematuria Continue amiodarone at current dosing along with metoprolol, aspirin, statin, Plavix Continue Flomax PT and OT Supportive care otherwise Findings, current concern and discharge planning were discussed with patient and he was given an opportunity to ask questions. Full code Attestations Medical Necessity Statement*: Requires ongoing inpatient stay for continued adjustment in medications and monitoring status post recent stent placement and for recurrent hematuria. He continues to have soft though improved blood pressures with holding of diuretics. Finding an optimal and safe medication regimen for him I suspect will continue to be a challenge. and High Time for a total of 50 minutes, includes reviewing past or interval history, examining/interviewing patient, placing orders, counseling patient/family/other support, discussing plan of care with staff, documenting encounter and coordinating care Diagnoses Community acquired pneumonia J18.9 Atrial fibrillation with RVR I48.91 Cardiomyopathy I25.5 Cardiomyopathy type: ischemic Peripheral arterial disease I73.9 COPD (chronic obstructive pulmonary disease) J44.9 UTI (urinary tract infection) N39.0 Gross hematuria R31.0 BPH loc w urin obs/LUTS N40.1 S/P right coronary artery (RCA) stent placement Z95.5 HTN (hypertension) I10 Status post kyphoplasty Z98.890
[2022-09-03] MEDS: tamsulosin 0.4 mg Capsule PO (18:08)
[2022-09-03] MEDS: atorvastatin 40 mg Tablet PO (20:24)
[2022-09-04] VITALS (28 sets, daily range): BP systolic 78–118; BP diastolic 48–80; PULSE 72–92; RESP 16–33; TEMP 36–36.4; O2SAT 94–98
[2022-09-04 03:01] LABS: Basophils % 0.5 %; Eosinophils # 0.1 10^3/uL (0.0-0.8); Eosinophils % 1.6 %; Hematocrit 37.2 % (42.0-52.0); Hemoglobin 11.8 g/dL (11.7-16.6); Lymphocytes # 1.4 10^3/uL (0.8-4.8); Lymphocytes % 18.6 %; Mean Corpuscular HGB Conc 31.7 g/dL (30.0-36.0); Mean Corpuscular Hemoglobin 31.4 pg (28.0-34.0); Mean Corpuscular Volume 98.9 fl (80-94); Mean Platelet Volume 10.6 fL (7.4-10.4); Monocytes # 0.6 10^3/uL (0.2-0.9); Monocytes % 7.9 %; Neutrophils # 5.25 10^3/uL (1.8-7.7); Neutrophils % 71.1 %; Nucleated Red Blood Cells % 0 %; Platelet Count 272 10^3/cmm (130-400); Red Blood Count 3.76 10^6/uL (4.1-5.3); Red Cell Distribution Width 14.6 % (12.1-15.1); White Blood Count 7.4 10^3/uL (4.0-10.0)
[2022-09-04 03:17] LABS: INR 1.11 (0.8-1.2)
[2022-09-04 03:29] LABS: Anion Gap 14.3 (5-19); Blood Urea Nitrogen 13 mg/dL (8-23); Calcium 8.9 mg/dL (8.5-10.5); Carbon Dioxide 22 mmol/L (22-29); Chloride 101 mmol/L (98-107); Glucose 90 mg/dL (65-115); Magnesium 1.9 mg/dL (1.7-2.3); Osmolality Calculated 276 mOsm/kg (285-295); Phosphorus 2.7 mg/dL (2.5-4.5); Potassium 4.3 mmol/L (3.5-5.1); Sodium 133 mmol/L (136-145)
[2022-09-04] MEDS: pantoprazole 40 mg SDV IVP (04:38)
[2022-09-04] MEDS: clopidogrel 75 mg Tablet PO (08:15)
[2022-09-04] MEDS: aspirin 81 mg EC Tablet PO (08:15)
[2022-09-04] MEDS: amiodarone 200 mg Tablet PO (08:15)
--- NOTE | 2022-09-04 09:05 | P.DS_ITS ---
Discharge Providers Date of Admission: 08/19/22 02:51 Date of Discharge: September 04, 2022 Attending Provider at Admission: Olman Montes Attending Provider at Discharge: Ludy Verdugo MD Consults: Cardiology for CHF and CAD Urology for hematuria Ortho for suture removal after recent surgery Primary Care Provider: Sachin Gallagher DO Diagnoses at Discharge Discharge Diagnosis (1) Cardiomyopathy: Details from hospital stay: New onset systolic CHF with EF 15%, likely nonischemic in nature, though is status post RCA stent this admission to help increase chances of left ventricular function recovery. Developed significant hypotension during hospital stay and diuretics transiently held. Resuming at 20 mg of furosemide t wice a day for now we will monitor response. Not on an ROMÁN inhibitor nor an ARB secondary to hypotension. Status: Acute Qualifiers: Cardiomyopathy type: ischemic Qualified Code(s): I25.5 - Ischemic cardiomyopathy (2) Presence of external cardiac defibrillator: Details from hospital stay: Life vest arranged 08/2022 due to EF 15% Status: Acute Permanent problem details: Life vest arranged 08/2022 due to EF 15% (3) S/P right coronary artery (RCA) stent placement: Details from hospital stay: Status post RCA stent this hospital stay. On Plavix and statin therapy. Not on beta-blockade secondary to hypotension. Status: Acute (4) Atrial fibrillation with RVR: Details from hospital stay: Intermittent afib with RVR noted at presentation.? Started on amiodarone and low-dose beta-ashli.? Full anticoagulation currently held secondary to recurrent issues with gross hematuria during hospital stay. Plan is for initiation of eliquis at follow up with close monitoring for recurrent hematuria.? Had previously been on diltiazem though was not effective this hospital stay and has been discontinued.? Status: Resolved (5) Gross hematuria: Details from hospital stay: Gross hematuria occurred initially after Ahn catheter placement for urinary retention/lower urinary symptoms. It resolved but then subsequently recurred with full anticoagulation. Dr. Saez was consulted and patient had normal cystoscopy on September 02. Anticoagulation currently held. He continues to have slightly pink-tinged urine though improving daily. Anticoagulation will need to be attempted soon for CHF and A-fib as well as peripheral artery disease. Status: Acute Permanent problem details: Initially after catheter placement with resolution with removal. Recurred again after anticoagulation. Normal cystoscopy on 09/02/2022. CT scan demonstrated no obvious upper urinary tract abnormality but it was noncontrasted. (6) BPH loc w urin obs/LUTS: Details from hospital stay: New diagnosis. Initiated on Flomax. Ahn catheter has been removed. Not having dizziness but does have low blood pressures so continued treatment will have to be monitored for appropriateness. Status: Acute Permanent problem details: Chronic decreased force of stream without RUTIs gross hematuria (previously prior to catheterization placement) or retention. (7) Community acquired pneumonia: Details from hospital stay: Treated empirically at admission for community acquired pneumonia though suspect findings more attributable to CHF. Later has aspiration event and was covered empirically with augmentin. Off antibiotics at discharge. Status: Resolved (8) UTI (urinary tract infection): Details from hospital stay: Empirically with Rocephin for possible UTI with hematuria though cultures negative to date. Status: Resolved (9) Peripheral arterial disease: Details from hospital stay: With history of claudication and peripheral interventions. Was on cilostazol which is now contraindicated in setting of CHF. Had also been on pentoxyfilline prior to admission, but stopped secondary to hematuria in setting of full anticiagulation. If unable to tolerate initiation of full anticoagulation for CHF and intermittent atrial fibrillation can consider resumption of pentoxifylli ne as appropriate or needed for claudication symptoms. Status: Chronic (10) COPD (chronic obstructive pulmonary disease): Details from hospital stay: Exacerbated at presentation pneumonia or CHF or combination of both. Also had an episode of aspiration that impacted respiratory symptoms. Overall significantly improved at the time of discharge and no longer on antibiotics. Status: Chronic (11) HTN (hypertension): Details from hospital stay: Chronically with a history of hypertension. Has had low normal blood pressures with adjustments to medications secondary to acute or newly identified cardiac issues including CHF and RCA stenosis requiring stent placement along with intermittent A-fib with RVR Status: Chronic (12) Status post kyphoplasty: Details from hospital stay: Of L1, L3 and L4 prior to this admission. Sutures removed during hospital stay. To keep follow-up with orthopedics as previously recommended. Status: Acute Permanent problem details: L1, L3, L4 Reason for Visit Reason for Visit: RESP. DISTRESS Brief History: Admission HPI as per Dr. Montes: Pleasant 82-year-old gentleman with recently admitted and treated due to compression fractures, intractable back pain, underwent kyphoplasty, during admission was noted to have thick secretions by anesthesia, chest x-ray with some suggestion of pneumonia, was started on Levaquin.? Was brought here from [facility] due to cough, productive sputum, he states that he could not produce sputum, shortness of breath, reported new oxygen requirement 4 L.? Findings suspicious for bilateral lower lung pneumonia on preliminary imaging, pending read.? Here on presentation also noted in A-fib with RVR, heart rates in 140s.? Denies chest pain or pressure.? He is not sure whether he has been taking the prescribed Levaquin. In ER he received ceftriaxone and azithromycin.? A dose of Lasix with initial concern for also CHF.? Additionally initially started on Cardizem drip to help control heart rate, with mild improvement in heart rates, but with decrease in blood pressure could not tolerate further increase in rate and amiodarone was added. Hospital Course Hospital Course Patient was admitted to medical bed. Echocardiogram was done and demonstrated an ejection fraction of 15%. Patient had CTA with bilateral pleural effusions also. Cardiology was consulted. The significant LV dysfunction was new. Patient ultimately underwent cardiac catheterization where he was found to have RCA stenosis and had stent placement to improve chances of LV recovery. Life vest was also placed, As per cardiology, this is likely a nonischemic cardiomyopathy. Patient does drink regularly, approximately 4 drinks every evening. Managing medications has been challenging due to hypotension. Earlier in hospital stay patient was noted to have urinary retention/lower urinary tract symptoms necessitating Ahn catheter placement. He was also started on some Flomax. Catheter placement was traumatic leading to gross hematuria. Hematuria cleared with removal of Ahn but then recurred when he subsequently required full anticoagulation. In addition to the EF of 15%. He had intermittent atrial fibrillation with rapid ventricular response as well as the percutaneous intervention necessitating management. He underwent cystoscopy by Dr. Saez after the second episode of gross hematuria. Cystoscopy was normal. At this time he remains on Plavix secondary to drug-eluting stent placement. All other antiplatelet and anticoagulant medications are currently held. Urine is slight ly pink-tinged still but improving daily. Patient's urine output has improved with Flomax as well. He will need to be evaluated for initiation of Eliquis in a week or so and then monitored closely for recurrent gross hematuria. He did receive empiric treatment for possibility of UTI though cultures were negative. At admission he had what was felt to be pneumonia and associated acute COPD exacerbation. He received empiric antibiotics for this. He also had a possible aspiration event during the hospital stay. At the time of discharge she is not on any antibiotics. He was initially on higher dose diuretics but did not tolerate them. He received IV fluids transiently with some improvement. At discharge she will be on 20 mg of Lasix twice a day plus supplemental potassium. I anticipate he will need later adjustment as blood pressure allows. He has not been started on beta-blockade nor ROMÁN inhibitor or ARB secondary to hypotension though will need to be evaluated for possibility at all follow-up. Current plan is for him to see Sofia Daniel in a week and then Dr. Marx in a month. In the interim he will need to see his primary care provider. Patient had been transferred here from [facility] facility where he had gone after his kyphoplasty. He has improved significantly from that and is doing well enough that he will be discharged home with home health. He will need med ication management and monitoring, blood pressure checks and blood pressure log maintained for follow-up with cardiology, CHF management and and education along with monitoring of LifeVest utilization. PT and he has also been continued via home health. At the time of discharge patient was eager to get home. He was alert and oriented x3. Lungs are clear. He has a regular rhythm. He is not getting dizzy with standing. Not having lower extremity edema. Doing better with therapy daily and no longer having significant back pain. Physical Exam Urinary Catheter Management: Ahn: Cath Placed During This Visit: yes, but has since been removed by the nurse Reason for Continuing Indwelling Catheter: Decision to DC Catheter Urinary Catheter Date of Insertion: 08/19/22 Urinary Catheter Time of Insertion: 15:20 Date Urinary Catheter Removed: 08/26/22 Time Urinary Catheter Discontinued: 16:30 Discharge Data Studies Completed and Pending Completed Studies During Hospitalization Category Date Time Status CT abdomen pelvis wo con [id number] Routine Cat Scan 08/26/22 08:39 Completed CTA chest [CT angio chest PE protcl [id number]] Stat Cat Scan 08/19/22 03:01 Completed XR chest 1V portable [id number] Routine Exams 08/24/22 09:50 Completed XR chest 1V portable [id number] Stat Exams 08/19/22 01:03 Completed CV. echo complete* [id number] Routine Ultrasound 08/19/22 07:12 Completed US renal BI* [id number] Routine Ultrasound 08/22/22 07:57 Completed Pending at discharge Category Date Time Status [employer] request for service Routine Exams 08/30/22 08:30 Performed, Had RCA stent placed Radiology Impressions Chest CTA 08/19/22 03:01 IMPRESSION: 1. No definite PE. 2. Large right and small to moderate size left effusions areas of bilateral mid to lower lung atelectasis or developing pneumonia. These findings are markedly progressive from 12/22/2021. 3. Underlying mild CHF as well. 4. Numerous other findings above. Advise appropriate close follow-up. Consider need for right thoracentesis. Renal Ultrasound 08/22/22 07:57 IMPRESSION: Unremarkable. Chest X-Ray 08/24/22 09:50 IMPRESSION: 1. Improved bilateral pleural effusions. 2. Improved infiltrates in the left base. 3. Right basal infiltrate showing little change. Abdomen/Pelvis CT 08/26/22 08:39 IMPRESSION: 1. No hydronephrosis in either kidney. Mild bilateral renal cortical atrophy. No hydronephrosis. 2. Air-fluid level in the bladder with Ahn catheter. Mild bladder wall thickening. 3. Prostate measures 4.1 cm in maximum dimension. 4. Small moderate RIGHT and small LEFT pleural effusions with compressive atelectasis in the lung bases. Laboratory Results WBC 7.4 10^3/uL (4.0-10.0) 09/04/22 02:18 RBC 3.76 10^6/uL (4.1-5.3) L 09/04/22 02:18 Hgb 11.8 g/dL (11.7-16.6) 09/04/22 02:18 Hct 37.2 % (42.0-52.0) L 09/04/22 02:18 MCV 98.9 fl (80-94) H 09/04/22 02:18 MCH 31.4 pg (28.0-34.0) 09/04/22 02:18 MCHC 31.7 g/dL (30.0-36.0) 09/04/22 02:18 RDW 14.6 % (12.1-15.1) 09/04/22 02:18 Plt Count 272 10^3/cmm (130-400) 09/04/22 02:18 MPV 10.6 fL (7.4-10.4) H 09/04/22 02:18 Neut % (Auto) 71.1 % 09/04/22 02:18 Lymph % (Auto) 18.6 % 09/04/22 02:18 [place] % (Auto) 7.9 % 09/04/22 02:18 Eos % (Auto) 1.6 % 09/04/22 02:18 Baso % (Auto) 0.5 % 09/04/22 02:18 Neut # (Auto) 5.25 10^3/uL (1.8-7.7) 09/04/22 02:18 Lymph # (Auto) 1.4 10^3/uL (0.8-4.8) 09/04/22 02:18 [place] # (Auto) 0.6 10^3/uL (0.2-0.9) 09/04/22 02:18 Eos # (Auto) 0.1 10^3/uL (0.0-0.8) 09/04/22 02:18 Baso # (Auto) 0.0 10^3/uL (0.0-0.1) 09/04/22 02:18 Nucleated RBC % (auto) 0 % 09/04/22 02:18 Nucleated RBCs # 0.0 /100WBC 09/04/22 02:18 PT 14.70 SECONDS (12.1-14.9) 09/04/22 02:18 INR 1.11 (0.8-1.2) 09/04/22 02:18 APTT 43.6 SECONDS (23.9-36.7) H D 08/30/22 15:04 Specimen Type Arterial 08/19/22 02:50 Sample Site Radial, right 08/19/22 02:50 ABG pH 7.48 (7.35-7.45) H 08/19/22 02:50 ABG pCO2 30.0 mmHg (35-45) L 08/19/22 02:50 ABG pO2 56.8 mmHg (80.0-100.0) L 08/19/22 02:50 ABG HCO3 22.5 mmol/L (22-26) 08/19/22 02:50 ABG Base Excess 0.0 mmol/L (-2.0-2.0) 08/19/22 02:50 Ramon Test Pos 08/19/22 02:50 Hematocrit 40.5 % (42-52) L 08/19/22 02:50 Hgb O2 Saturation 89.7 % (95-100) L 08/19/22 02:50 Carboxyhemoglobin 1.5 %THgb (0.4-20.1) 08/19/22 02:50 Methemoglobin 0.6 % (0.4-1.5) 08/19/22 02:50 Total Hemoglobin 13.2 g/dL (14-18) L 08/19/22 02:50 O2 Delivery Device Nc 08/19/22 02:50 O2 Liters/Min 2.0 % 08/19/22 02:50 Adult Education Manager ID [id number] 08/19/22 02:50 Sodium 133 mmol/L (136-145) L 09/04/22 02:18 Potassium 4.3 mmol/L (3.5-5.1) 09/04/22 02:18 Chloride 101 mmol/L (98-107) 09/04/22 02:18 Carbon Dioxide 22 mmol/L (22-29) 09/04/22 02:18 Anion Gap 14.3 (5-19) 09/04/22 02:18 BUN 13 mg/dL (8-23) 09/04/22 02:18 Creatinine 1.1 mg/dL (0.7-1.2) 09/04/22 02:18 GFR Calculation Not Reportable 09/04/22 02:18 Glucose 90 mg/dL (65-115) 09/04/22 02:18 POC Glucose 113 mg/dL (70-110) H 08/29/22 17:33 Calculated Osmolality 276 mOsm/kg (285-295) L 09/04/22 02:18 Lactic Acid 1.8 mmol/L (0.5-2.2) 08/19/22 01:40 Calcium 8.9 mg/dL (8.5-10.5) 09/04/22 02:18 Phosphorus 2.7 mg/dL (2.5-4.5) 09/04/22 02:18 Magnesium 1.9 mg/dL (1.7-2.3) 09/04/22 02:18 Iron 47 ug/dL (59-158) L 08/28/22 05:17 TIBC 220 mcg/dl 08/28/22 05:17 % Saturation 21.3 % (20-50) 08/28/22 05:17 Unsat Iron Binding 173 ug/dL (112-347) 08/28/22 05:17 Total Bilirubin 0.6 mg/dL (0.15-1.2) 09/03/22 02:58 AST 16 U/L (0-40) 09/03/22 02:58 ALT 11 U/L (0-41) 09/03/22 02:58 Alkaline Phosphatase 122 U/L (40-130) 09/03/22 02:58 Troponin T Baseline 60 ng/L (0-15) H 08/19/22 03:40 Troponin T 120 Minute 58.04 ng/L (0-15) H 08/19/22 06:31 Delta Troponin T -1.96 ABS# (0-10) L 08/19/22 06:31 Troponin T Hi Sens 6Hr 63.70 ng/L (0-15) H 08/19/22 09:50 Troponin T Hi Sens 6Hr Delta 3.70 ng/L (0-12) 08/19/22 09:50 NT-Pro-B Natriuret Pep 30855 pg/mL (0-450) H 08/28/22 05:17 Total Protein 5.6 g/dL (6.6-8.7) L 09/03/22 02:58 Albumin 3.3 g/dL (3.5-5.2) L 09/03/22 02:58 Globulin 2.3 g/dL (1.3-4.6) 09/03/22 02:58 Vitamin B12 636 pg/mL (232-1245) 08/28/22 05:17 Folate 15.2 ng/mL (4.5-32.2) 08/28/22 05:17 Procalcitonin 0.07 ng/mL (0-0.5) 08/19/22 06:03 TSH 5.17 uIU/mL (0.27-4.20) H 08/20/22 06:19 Urine Color Kelly (Yellow) 08/25/22 11:33 Urine Appearance Cloudy (CLEAR) A 08/25/22 11:33 Urine pH 5 (5-7) 08/25/22 11:33 Ur Specific [place] 1.025 (1.005-1.030) 08/25/22 11:33 Urine Protein 3+ (Negative) H 08/25/22 11:33 Urine Glucose (UA) Norm (Normal) 08/25/22 11:33 Urine Ketones Negative (Negative) 08/25/22 11:33 Urine Blood 3+ (Negative) H 08/25/22 11:33 Urine Nitrate Negative (Negative) 08/25/22 11:33 Urine Bilirubin 1+ (Negative) H 08/25/22 11:33 Urine Urobilinogen 1 mg/dL (Negative) H 08/25/22 11:33 Ur Leukocyte Esterase Trace (Negative) H 08/25/22 11:33 Urine RBC >100 /hpf (0-2) H 08/25/22 11:33 Urine WBC 10-15 /hpf (0-5) H 08/25/22 11:33 Ur Squamous Epith Cells 0-4 /hpf (0-5) H 08/25/22 11:33 Amorphous Sediment 1+ /hpf 08/25/22 11:33 Urine Bacteria 1+ /hpf (NONE) H 08/25/22 11:33 Urine Mucus Trace /hpf 08/22/22 08:35 Vancomycin Trough 18.0 ug/mL (10-15) H 08/21/22 10:52 Influenza Type A Ag Negative (Negative) 08/19/22 01:16 Influenza Type B Ag Negative (Negative) 08/19/22 01:16 SARS-CoV-2 Ag (Rapid) negative (Negative) 08/19/22 01:16 Vitals Last Vital Signs Temp 96.8 F L 09/04/22 07:38 Pulse 72 09/04/22 08:00 Resp 16 09/04/22 08:00 BP 114/63 09/04/22 07:38 Pulse Ox 95 09/04/22 08:00 O2 Del Method 09/04/22 08:00 O2 Flow Rate 3 08/30/22 10:30 Discharge Plan Discharge Patient Disposition: Home Health Service Condition: Stable Prescriptions: New amiodarone [Pacerone] 200 mg Tablet 200 mg PO DAILY Qty: 30 0RF tamsulosin 0.4 mg Capsule 0.4 mg PO QPM Qty: 30 0RF furosemide 20 mg tablet 20 mg PO BID Qty: 60 0RF potassium chloride [Klor-Con 10] 10 mEq tablet extended release 10 meq PO BID Qty: 60 0RF Rx Instructions: Hold if do not take lasix atorvastatin 40 mg Tablet 40 mg PO BEDTIME Qty: 30 0RF Continued multivitamin Tablet 1 tab PO DAILY Tylenol 325 mg Tablet 650 mg PO Q6H PRN (Reason: Pain/fever) Dulcolax (bisacodyl) 10 mg Suppository 10 mg DC DAILY PRN (Reason: Constipation) pantoprazole 40 mg Tablet,Delayed Release (Dr/Ec) 40 mg PO DAILY magnesium oxide 400 mg magnesium Tablet 400 mg PO DAILY folic acid 1 mg Tablet 1 mg PO DAILY ferrous gluconate 324 mg (37.5 mg iron) tablet 324 mg PO DAILY albuterol sulfate [ProAir HFA] 90 mcg/actuation Hfa Aerosol Inhaler 2 puff INHALATION Q6H PRN (Reason: Shortness Of Breath) clopidogrel 75 mg Tablet 75 mg PO DAILY Qty: 30 0RF Discontinued tramadol 50 mg tablet 50 mg PO BID PRN (Reason: pain) Qty: 45 0RF pentoxifylline 400 mg tablet extended release 400 mg PO TID 30 Days Qty: 90 4RF Rx Instructions: must administer with a meal/food Lasix 40 mg Tablet 40 mg PO BID trazodone 50 mg Tablet 25 mg PO BEDTIME Lena 5-325 mg Tablet 1 tab PO Q8H PRN (Reason: Pain) Milk of Magnesia 400 mg/5 mL Suspension 30 ml PO DAILY PRN (Reason: Constipation) Fleet Enema 19-7 gram/118 mL Enema 118 ml DC BEDTIME PRN (Reason: Constipation) diltiazem HCl 120 mg Tablet Extended Release 24 Hr 120 mg PO DAILY potassium chloride 20 mEq Tablet Extended Release 20 meq PO DAILY Hold Instructions: Resume on 08/09/22. cilostazol 50 mg tablet 50 mg PO BID Discharge Orders: Discharge Order (Routine); Ordered 09/04/22 Ordered By: Ludy Verdugo Referrals: [facility] ([facility]) [Outside] Rober Marx M.D [Physician] - 1 month ([address] Dr Marx) Sachin Gallagher DO [Primary Care Provider] - 09/06/22 9:30 am Sofia Daniel FNP [Nurse Practitioner] - 04/14/23 8:45 am Discharge Diet: Cardiac Discharge Activity: Increase activity as tolerated Patient Instructions: Furosemide (By mouth) (Lasix), Amiodarone (By mouth) (Cordarone, Pacerone), Atorvastatin (By mouth) (Lipitor), Tamsulosin (By mouth) (Flomax), Coronary Artery Disease (DC), Coronary Angioplasty (DC), CHF Stoplight, COPD Stoplight, Opioid Safety Patient's Health Concerns: Wants to get back home and be out of the hospital for a while Assessment: New diagnosis of CHF with an ejection fraction of 15% (life vest placed), coronary artery disease status post RCA stent placement, gross hematuria seconda ry initially to Ahn trauma with recurrence due to anticoagulation. Had intermittent atrial fibrillation with rapid ventricular response, started on amiodarone. Clinically felt to have pneumonia at admission though symptoms may have been due to CHF and COPD exacerbation. Was treated empirically with antibiotics and breathing treatments. Plan of Treatment: Discharging home with home health Need to keep blood pressure logs, monitor fluid intake and daily weights and medication compliance Amiodarone secondary to intermittent atrial fibrillation Diuretic therapy secondary to systolic CHF along with potassium Have held beta-blockade, consideration for ROMÁN inhibitor or ARB secondary to low blood pressures Continue Plavix due to RCA stent Will need reevaluation for consideration of initiation of full anticoagulation soon with close monitoring for recurrent gross hematuria. Had unremarkable cystoscopy performed by Dr. Saez during hospital stay. Status post tr eatment with Rocephin for possible UTI though cultures negative. Flomax has been initiated secondary to prostatic hypertrophy with lower urinary tract symptoms Status post recent kyphoplasty was sutures removed during this hospital stay, doing well with therapy and not requiring pain medications so they have been discontinued Discharge Attestations Time Spent in Discharge Care*: greater than 30 min Specific Discharge Activities: educating patient, discussing with pcp/other providers, discussing with case manager/social workers/dc planners, documenting/other paperwork and evaluating patient/reviewing data Status at Discharge: Cognitive status at discharge: cognitively intact , Behavioral status at discharge: cooperative , Quality Metrics Clinical Quality Measures [ No reported AMI, CVA or VTE this stay] Coding Level of Care Code 15362 Total time (in minutes) for Discharge: 60 Diagnoses Cardiomyopathy I25.5 Cardiomyopathy type: ischemic Presence of external cardiac defibrillator Z95.810 S/P right coronary artery (RCA) stent placement Z95.5 Atrial fibrillation with RVR I48.91 Gross hematuria R31.0 BPH loc w urin obs/LUTS N40.1 Community acquired pneumonia J18.9 UTI (urinary tract infection) N39.0 Peripheral arterial disease I73.9 COPD (chronic obstructive pulmonary disease) J44.9 HTN (hypertension) I10 Status post kyphoplasty Z98.890
--- NOTE | 2022-09-04 10:31 | PM.PN ---
Subjective Subjective: Patient is doing well. No chest pain. Vitals/I&O/Wt Last Vital Signs Temp 96.8 F L 09/04/22 07:38 Pulse 72 09/04/22 08:00 Resp 16 09/04/22 08:00 BP 114/63 09/04/22 07:38 Pulse Ox 95 09/04/22 08:00 O2 Del Method 09/04/22 08:00 O2 Flow Rate 3 08/30/22 10:30 09/03/22 09/04/22 09/04/22 22:59 06:59 14:59 Intake Total 240 / 600 300 / 900 Output Total 475 / 475 Balance 240 / 600 -175 / 425 Weight last 48 hrs Weight 173 lb 9.6 oz Weight 173 lb 9.6 oz Weight 171 lb 9.6 oz Physical Exam Narrative: GENERAL: Patient is alert, awake and oriented x3. [] NECK: No jugular vein distension. [] HEENT: No cyanosis. No icterus. No pallor. [] HEART: Regular S1 and S2. No murmur, rub or gallop. [] LUNGS: Clear to auscultate bilaterally. [] CENTRAL NERVOUS SYSTEM: Grossly nonfocal. [] EXTREMITIES: Lower extremities with 1+ edema Urinary Catheter Management: Ahn: Cath Placed During This Visit: yes, but has since been removed by the nurse Reason for Continuing Indwelling Catheter: Decision to DC Catheter Urinary Catheter Date of Insertion: 08/19/22 Urinary Catheter Time of Insertion: 15:20 Date Urinary Catheter Removed: 08/26/22 Time Urinary Catheter Discontinued: 16:30 Data 09/04/22 02:18 09/04/22 02:18 A&P Assessment and plan (1) Congestive heart failure: Guideline directed heart failure therapy. Because of hypotension, we will hold off on Entresto and can be started as outpatient. Continue aspirin and Plavix he has had revascularization of RCA. Continue p.o. Lasix Qualifiers: Heart failure chronicity: acute Heart failure type: systolic Qualified Code(s): I50.21 - Acute systolic (congestive) heart failure (2) Atrial fibrillation with RVR: Continue amiodarone. We will continue with dual antiplatelet therapy. We will hold off on anticoagulation. (3) Cardiomyopathy: Lasix to be restarted. Qualifiers: Cardiomyopathy type: ischemic Qualified Code(s): I25.5 - Ischemic cardiomyopathy (4) Peripheral arterial disease: Continue current therapy. Plan Patient is stable to be discharged home Attestations Medical Necessity Statement*: Care expected to cross 2 midnights. Coding Level of Care Code Acute Code for [facility] Diagnoses Congestive heart failure I50.21 Heart failure chronicity: acute Heart failure type: systolic Atrial fibrillation with RVR I48.91 Cardiomyopathy I25.5 Cardiomyopathy type: ischemic Peripheral arterial disease I73.9
--- NOTE | 2022-09-04 15:04 | PC.NURSE ---
Patient and family was given discharge instructions and educational packets, patient verbalized understanding. Patient was also educated on life vest on two different occasions by life vest medical billing representative RN. The patient was wearing the life vest while leaving the facility. Discharged via wheel chair to parking lot, left with friend to drive patient home.
== END 2022-09-04 15:00 | disposition home health service (06) | DRG 246 ==
LOC: ER 02:22 → ICU 03:12 → CSU 08-21 16:16
PROVIDERS: Family Medicine; Internal Medicine; Student in an Organized Health Care Education/Training Program; Admitting Provider Internal Medicine; Emergency Provider Emergency Medicine; PCP Emergency Medicine Emergency Medical Services; Visit Provider Hospitalist
PROC: 027034Z Dilation of Coronary Artery, One Artery with Drug-eluting Intraluminal Device, Percutaneous Approach (ICD-10-PCS; principal; 2022-08-30 08:30)
PROC: 027034Z Dilation of Coronary Artery, One Artery with Drug-eluting Intraluminal Device, Percutaneous Approach (ICD-10-PCS; 2022-08-30 08:30)
DX: I11.0 Hypertensive heart disease with heart failure (principal); I50.21 Acute systolic (congestive) heart failure; J69.0 Pneumonitis due to inhalation of food and vomit; J18.9 Pneumonia, unspecified organism; T83.83XA Hemorrhage due to genitourinary prosthetic devices, implants and grafts, initial encounter; N39.0 Urinary tract infection, site not specified; J44.1 Chronic obstructive pulmonary disease with (acute) exacerbation; J44.0 Chronic obstructive pulmonary disease with (acute) lower respiratory infection; E87.1 Hypo-osmolality and hyponatremia; Z95.810 Presence of automatic (implantable) cardiac defibrillator; I48.0 Paroxysmal atrial fibrillation; I42.8 Other cardiomyopathies; I95.9 Hypotension, unspecified; R31.0 Gross hematuria; Y73.1 Therapeutic (nonsurgical) and rehabilitative gastroenterology and urology devices associated with adverse incidents; N40.1 Benign prostatic hyperplasia with lower urinary tract symptoms; R33.8 Other retention of urine; R39.12 Poor urinary stream; I73.9 Peripheral vascular disease, unspecified; Z95.820 Peripheral vascular angioplasty status with implants and grafts; I25.10 Atherosclerotic heart disease of native coronary artery without angina pectoris; Y95 Nosocomial condition; K70.30 Alcoholic cirrhosis of liver without ascites; F10.10 Alcohol abuse, uncomplicated; Z98.890 Other specified postprocedural states; Z79.51 Long term (current) use of inhaled steroids; Z79.02 Long term (current) use of antithrombotics/antiplatelets; R45.1 Restlessness and agitation; R13.10 Dysphagia, unspecified; E78.5 Hyperlipidemia, unspecified; C32.0 Malignant neoplasm of glottis; Z87.891 Personal history of nicotine dependence; Z85.828 Personal history of other malignant neoplasm of skin; K21.9 Gastro-esophageal reflux disease without esophagitis; Z89.422 Acquired absence of other left toe(s)
CPT/HCPCS: 36415; 36416; 36600; 51702; 51798; 71045; 71275; 74176; 76770; 80048; 80053; 80202; 81001; 81015; 82607; 82746; 82805; 82962; 83540; 83550; 83605; 83735; 83880; 84100; 84145; 84443; 84484; 85014; 85018; 85025; 85347; 85610; 85730; 86403; 87040; 87070; 87086; 87205; 87426; 87449; 87641; 87804; 92523; 92526; 92610; 93005; 93306; 93454; 94640; 94664; 96365; 96367; 96372; 96375; 96376; 97110; 97116; 97161; 97165; 97530; 97535; 99285; 99291; 99292; A4222; C1725; C1769; C1874; C1887; C1894; C9113; C9600; J0282; J0456; J0692; J0696; J1160; J1644; J1650; J1940; J2060; J2250; J2370; J2405; J2704; J3010; J3370; J3490; J7030; J7050; J7060; J7512; J7626; Q0163; Q9967

== ENCOUNTER 2022-09-09 13:19 | Emergency (ER) | payer OTHER, SELFPAY ==
[2022-09-09] VITALS (22 sets, daily range): BP systolic 94–128; BP diastolic 56–78; PULSE 80–92; RESP 17–27; TEMP 36.4; O2SAT 92–97
--- NOTE | 2022-09-09 14:29 | XR_ITS ---
WS: [id number] EXAMINATION: XR chest 1V portable [id number] REASON FOR EXAM: sob COMPARISON: 08/24/2022 ORDER DATE: 09/09/2022 2:33 PM TECHNIQUE: A single, portable frontal chest x-ray was obtained. X-RAY FINDINGS: Bibasal pleural effusions show possible minimal increase on the right and no change on the left. Ther e has been some improvement in the bibasal infiltrates. No pneumothorax. No definite pulmonary vascul ar congestion. The heart is enlarged but unchanged in size. The mediastinum is normal in contour. Bony structures are intact. Again monitoring leads superi mpose the chest. XR/XR chest 1V portable [id number] Impression: 1. Improving bibasal infiltrates 2. Possibly mild increase in right pleural effusion with little change in the l eft effusion.
--- NOTE | 2022-09-09 14:33 | W.ED.SOB ---
HPI - SOB/Dyspnea General: Chief Complaint: Shortness of Breath/Dyspnea Stated Complaint: short of breath Time Seen by Provider: 09/09/22 13:27 Source: patient and family Mode of arrival: ambulatory Limitations: no limitations History of Present Illness: HPI Narrative: Patient returns to the emergency department at the behest of neighbors who are in nurses. Patient was recently in this facility acute systolic heart failure andSubsequently had stent placement because of significant right coronary artery stenosis. He returns because of lower extremity edema persistent work of breathing. He has not had any fevers or chest pain. He states he does make urine. He has not any recurrence of his hematuria that he experienced while in the hospital. He chews tobacco but denies any inhaled tobacco use. He states he has used his metered-dose inhaler without much improvement in his subjective symptoms. He states he has been taking his prescribed medications faithfully. MD elicited complaint: shortness of breath Pertinent past history: congestive heart failure Severity: moderate Exacerbating factors: exertion Relieving factors: nothing Associated symptoms: Reports cough; Deny abdominal pain, chest pain, extremity pain, fever(s), nausea, palpitations, syncope or vomiting Related Data: Home oxygen amount: none Review of Systems Const: Denies: fever(s) or chills Eyes: Denies: change in vision ENMT: Denies: throat pain or odynophagia Card: Reports: edema; Denies: chest pain, palpitations, syncope or pre-syncope Resp: Reports: dyspnea and productive cough; Denies: wheezing GI: Denies: abdominal pain, nausea, vomiting, diarrhea, hematochezia or melena : Denies: flank pain, difficulty urinating, dysuria, urinary frequency or hematuria Musc: Reports: extremity swelling; Denies: neck pain, back pain or extremity pain Skin/Breast: Denies: rash Neuro: Denies: headache(s), numbness in extremities or weakness in extremities PFSH ED PFSH: Medical History Amputated toe of left foot discharged from wound care 07/05/22, follows with Dr Brunner Atrial fibrillation iintermittent BPH loc w urin obs/LUTS Chronic decreased force of stream without RUTIs gross hematuria (previously prior to catheterization placement) or retention. 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 8.0 x 19 mm Omnilink stent was placed. Left Proximal Superficial Femoral Artery with 80-90 % stenosis treated with AB [facility] 35 OTW [id number]. S/P right coronary artery (RCA) stent placement (08/30/22) Status post kyphoplasty (08/06/22) L1, L3, L4 Family History Other No pertinent family history Social History Smoking and tobacco status: current every day smoker smokeless tobacco Smokeless tobacco details: chewless pouches now, former chewing tobacco, former cigarette smoker Alcohol intake: current Alcohol type: hard liquor Lives independently: Yes Household members: none Housing: House Physical Exam Narrative: EXAM NARRATIVE: Patient is alert makes good eye contact. He does speak in sentences with some labored breathing. Const: COMMON NORMALS: average body habitus and patient oriented x3 GENERAL APPEARANCE: cooperative and comfortable ORIENTATION/CONSCIOUSNESS: Yes awake, Yes oriented to person and Yes oriented to place HENMT: COMMON NORMALS: normocephalic, atraumatic, Normal nasal mucous membranes and turbinates present and moist oral mucous membranes HEAD & SCALP: normocephalic and atraumatic NOSE: Normal nasal mucous membranes and turbinates present Eye: COMMON NORMALS: Equal, round and reactive pupils present, EOMs intact bilaterally and conjunctivae normal CONJUNCTIVA: Yes conjunctivae normal PUPIL: Yes Equal, round and reactive pupils present Neck/C-Spine: COMMON NORMALS: full ROM, no lymphadenopathy, no JVD and No carotid bruits Chest: COMMONS NORMALS: normal inspection of the chest and normal palpation of entire chest wall Resp: EFFORT & INSPECTION: Yes pursed lip breathing and Yes labored AUSCULTATION: rales and rhonchi Cardio: COMMON NORMALS: no JVD, regular rate, No murmurs present (Cardio) and Peripheral pulses 2+ throughout RATE: regular rate PERIPHERAL PULSES: Peripheral pulses 2+ throughout GI: COMMON NORMALS: Normal to inspection, nondistended, normoactive bowel sounds present, Soft to palpation and non-tender PALPATION: Yes Soft to palpation : COMMON NORMALS: Yes no CVA tenderness BLADDER/KIDNEY EXAM: Yes no CVA tenderness Back/Pelvis: COMMON NORMALS: no CVA tenderness, thoracic and lumbar spine normal to inspection, no thoracic nor lumbar tenderness and thoraco-lumbar ROM normal Extremity: COMMON NORMALS: full ROM and no calf tenderness NARRATIVE EXTREMITY EXAM: He has bilateral pretibial pitting edema to mid lower leg. No erythema. Good capillary refill. Neuro: COMMON NORMALS: patient oriented x3, moves all extremities, no focal motor deficits and no sensory deficits noted SENSORIUM/ORIENTATION: Yes oriented to person and Yes oriented to place CRANIAL NERVES: Yes CN normal except as noted Psych: COMMON NORMALS: mental status grossly normal Skin: COMMON NORMALS: no rashes or lesions noted, no wounds and no jaundice GENERAL SKIN EXAM: no rashes or lesions noted Course Vital Signs: Vital signs: Vital Signs Temperature 97.6 F 09/09/22 13:20 Pulse Rate 87 09/09/22 16:20 Respiratory Rate 24 H 09/09/22 15:00 Blood Pressure 116/72 09/09/22 16:00 Pulse Oximetry 93 09/09/22 16:20 Oxygen Delivery Me thod Room Air 09/09/22 13:20 MDM - SOB/Dyspnea Medical Decision Making Patient with a known history of CHF as well as COPD who was prompted to come to the emergency department by neighbors because of lower extremity edema. Patient has been recently discharged from this facility after receiving a right coronary artery stenting and other treatments for his conditions. His work-up in the emergency department revealed improving BNP, improving chest x-ray stable troponins and stable electrocardiograms. Consistent with improving CHF and no evidence of ongoing ACS etc. The patient benefited from his evaluation in the emergency department and was subjectively improved and was desirous to be discharged from the emergency department. There was no evidence of an ongoing emergency medical condition that required further care. At this time. Patient's medication regimen, activity, other style were reviewed and emphasized to reduce those which could exacerbate his chronic problems. He voiced understanding. Stable for discharge at this time. Medical Records I reviewed the patient's medical records. Lab Data I reviewed the patient's lab results. 09/09/22 13:50 09/09/22 13:50 Labs/Radiology: Radiology Impressions Chest X-Ray 09/09/22 14:29 Impression: 1. Improving bibasal infiltrates 2. Possibly mild increase in right pleural effusion with little change in the left effusion. Laboratory Results WBC 6.7 10^3/uL (4.0-10.0) 09/09/22 13:50 RBC 4.02 10^6/uL (4.1-5.3) L 09/09/22 13:50 Hgb 12.8 g/dL (11.7-16.6) 09/09/22 13:50 Hct 38.7 % (42.0-52.0) L 09/09/22 13:50 MCV 96.3 fl (80-94) H 09/09/22 13:50 MCH 31.8 pg (28.0-34.0) 09/09/22 13:50 MCHC 33.1 g/dL (30.0-36.0) 09/09/22 13:50 RDW 15.4 % (12.1-15.1) H 09/09/22 13:50 Plt Count 288 10^3/cmm (130-400) 09/09/22 13:50 MPV 10.4 fL (7.4-10.4) 09/09/22 13:50 Neut % (Auto) 72.4 % 09/09/22 13:50 Lymph % (Auto) 16.8 % 09/09/22 13:50 [place] % (Auto) 8.5 % 09/09/22 13:50 Eos % (Auto) 1.0 % 09/09/22 13:50 Baso % (Auto) 0.7 % 09/09/22 13:50 Neut # (Auto) 4.82 10^3/uL (1.8-7.7) 09/09/22 13:50 Lymph # (Auto) 1.1 10^3/uL (0.8-4.8) 09/09/22 13:50 [place] # (Auto) 0.6 10^3/uL (0.2-0.9) 09/09/22 13:50 Eos # (Auto) 0.1 10^3/uL (0.0-0.8) 09/09/22 13:50 Baso # (Auto) 0.1 10^3/uL (0.0-0.1) 09/09/22 13:50 Nucleated RBC % (auto) 0.3 % 09/09/22 13:50 Nucleated RBCs # 0.0 /100WBC 09/09/22 13:50 Specimen Type Arterial 09/09/22 15:09 Sample Site Radial, left 09/09/22 15:09 ABG pH 7.50 (7.35-7.45) H 09/09/22 15:09 ABG pCO2 27.9 mmHg (35-45) L 09/09/22 15:09 ABG pO2 66.0 mmHg (80.0-100.0) L 09/09/22 15:09 ABG HCO3 21.6 mmol/L (22-26) L 09/09/22 15:09 ABG Base Excess -0.6 mmol/L (-2.0-2.0) 09/09/22 15:09 Ramon Test Pos 09/09/22 15:09 Hematocrit 38.1 % (42-52) L 09/09/22 15:09 O2 Delivery Device None 09/09/22 15:09 FiO2 21.0 % 09/09/22 15:09 Debone Supervisor ID [place] 09/09/22 15:09 Sodium 133 mmol/L (136-145) L 09/09/22 13:50 Potassium 3.9 mmol/L (3.5-5.1) 09/09/22 13:50 Chloride 98 mmol/L (98-107) 09/09/22 13:50 Carbon Dioxide 22 mmol/L (22-29) 09/09/22 13:50 Anion Gap 16.9 (5-19) 09/09/22 13:50 BUN 10 mg/dL (8-23) 09/09/22 13:50 Creatinine 1.0 mg/dL (0.7-1.2) 09/09/22 13:50 GFR Calculation Not Reportable 09/09/22 13:50 Glucose 80 mg/dL (65-115) 09/09/22 13:50 Calculated Osmolality 274 mOsm/kg (285-295) L 09/09/22 13:50 Calcium 8.5 mg/dL (8.5-10.5) 09/09/22 13:50 Total Bilirubin 0.9 mg/dL (0.15-1.2) 09/09/22 13:50 AST 32 U/L (0-40) 09/09/22 13:50 ALT 20 U/L (0-41) 09/09/22 13:50 Alkaline Phosphatase 170 U/L (40-130) H 09/09/22 13:50 Troponin T Baseline 39 ng/L (0-15) H 09/09/22 13:50 Troponin T 120 Minute 39.41 ng/L (0-15) H 09/09/22 13:33 Delta Troponin T 0.41 ABS# (0-10) 09/09/22 13:33 NT-Pro-B Natriuret Pep 8253 pg/mL (0-450) H 09/09/22 13:50 Total Protein 6.7 g/dL (6.6-8.7) 09/09/22 13:50 Albumin 4.2 g/dL (3.5-5.2) 09/09/22 13:50 Globulin 2.5 g/dL (1.3-4.6) 09/09/22 13:50 EKG Data EKG 2: I personally reviewed and interpreted this EKG as follows: Interpretation: Contemporaneous review of resting EKG reveals a ventricular rate of 87 bpm. Prolonged AL interval consistent with first-degree heart block. Normal QRS duration, corrected QT interval. [place] is indeterminate based on current QRS complexes. No acute ST-T wave changes noted. EKG 1: I personally reviewed and interpreted this EKG as follows: Interpretation: Contemporaneous review of EKG reveals a ventricular rate of 90 bpm. Prolonged QT AL interval consistent with first-degree AV block. QRS duration normal, QTc is normal. Normal axis. No acute ST-T wave changes noted at this time. Discharge Plan Discharge Patient Disposition: Home Clinical Impression: Congestive heart failure, COPD (chronic obstructive pulmonary disease) Condition: Stable Prescriptions: No Action multivitamin Tablet 1 tab PO DAILY acetaminophen [Tylenol] 325 mg Tablet 650 mg PO Q6H PRN (Reason: Pain/fever) magnesium oxide 400 mg magnesium Tablet 400 mg PO DAILY atorvastatin 40 mg Tablet 40 mg PO BEDTIME Qty: 30 0RF amiodarone [Pacerone] 200 mg Tablet 200 mg PO DAILY Qty: 30 0RF tamsulosin 0.4 mg Capsule 0.4 mg PO QPM Qty: 30 0RF furosemide 20 mg tablet 20 mg PO BID Qty: 60 0RF potassium chloride [Klor-Con 10] 10 mEq tablet extended release 10 meq PO BID Qty: 60 0RF Rx Instructions: Hold if do not take lasix clopidogrel 75 mg Tablet 75 mg PO DAILY Qty: 30 0RF folic acid 1 mg Tablet 1 mg PO DAILY ferrous gluconate 324 mg (37.5 mg iron) tablet 324 mg PO DAILY albuterol sulfate [ProAir HFA] 90 mcg/actuation Hfa Aerosol Inhaler 2 puff INHALATION Q6H PRN (Reason: Shortness Of Breath) Discharge Orders: Discharge ED (Routine); Ordered 09/09/22 Ordered By: Ernst Lee Referrals: Sachin Gallagher DO [Primary Care Provider] - 7-10 days Discharge Diet: Low Salt Discharge Activity: Increase activity as tolerated Patient Instructions: Opioid Safety, Pain Management Activity Restrictions/Additional Instructions: Continue all prescribed medications particularly your Lasix twice daily. Do not salt your food or consume high salt containing foods such as foods and cans, bags etc. Do not use chewing tobacco. Make sure that you get up and move around to reduce swelling in your legs. If you do continue to use your metered-dose inhaler 3-4 times daily. If your symptoms does not continue to improve or worsen at any time you are welcome to return to the emergency department. Coding Level of Care Code ED Filteration Operator for Jorge Betancourt
[2022-09-09] MEDS: FUROsemide 10 mg/mL SDV 4mL 40 MG IVP (14:34)
[2022-09-09 14:47] LABS: Basophils # 0.1 10^3/uL (0.0-0.1); Basophils % 0.7 %; Eosinophils # 0.1 10^3/uL (0.0-0.8); Hematocrit 38.7 % (42.0-52.0); Hemoglobin 12.8 g/dL (11.7-16.6); Lymphocytes # 1.1 10^3/uL (0.8-4.8); Lymphocytes % 16.8 %; Mean Corpuscular HGB Conc 33.1 g/dL (30.0-36.0); Mean Corpuscular Hemoglobin 31.8 pg (28.0-34.0); Mean Corpuscular Volume 96.3 fl (80-94); Mean Platelet Volume 10.4 fL (7.4-10.4); Monocytes # 0.6 10^3/uL (0.2-0.9); Monocytes % 8.5 %; Neutrophils # 4.82 10^3/uL (1.8-7.7); Neutrophils % 72.4 %; Nucleated Red Blood Cells % 0.3 %; Platelet Count 288 10^3/cmm (130-400); Red Blood Count 4.02 10^6/uL (4.1-5.3); Red Cell Distribution Width 15.4 % (12.1-15.1); White Blood Count 6.7 10^3/uL (4.0-10.0)
--- NOTE | 2022-09-09 15:08 | ECG_ITS ---
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 Measurements Intervals [place] Rate: 90 P: 50 PA: 210 QRS: 24 QRSD: 118 T: 108 QT: 380 QTc: 466 Interpretive Statements SINUS RHYTHM WITH FIRST DEGREE AV BLOCK WITH FREQUENT VENTRICULAR PREMATURE COMPLEXES INDETERMINATE AXIS POSSIBLE ANTERIOR MYOCARDIAL INFARCTION , PROBABLY OLD [30 ms Q WAVE IN V3/V4, OR R < 0.2 mV IN V4] Compared to ECG 08/19/2022 09:09:59 First degree AV block now present Indeterminate axis now present Myocardial infarct finding now present Atrial fibrillation no longer present Aberrant conduction of supraventricular beat(s) no longer present ST (T wave) deviation no longer present Electronically Signed On 09-09-2022 21:08:45 CDT by Antonio Apodaca M.D. [id number]
[2022-09-09 15:09] LABS: Troponin(5th) Baseline 39 ng/L (0-15)
[2022-09-09 15:18] LABS: Alanine Aminotransferase 20 U/L (0-41); Albumin Level 4.2 g/dL (3.5-5.2); Alkaline Phosphatase 170 U/L (40-130); Anion Gap 16.9 (5-19); Aspartate Amino Transferase 32 U/L (0-40); Blood Urea Nitrogen 10 mg/dL (8-23); Calcium 8.5 mg/dL (8.5-10.5); Carbon Dioxide 22 mmol/L (22-29); Chloride 98 mmol/L (98-107); Globulin 2.5 g/dL (1.3-4.6); Glucose 80 mg/dL (65-115); NT Pro B Type Natriuretic Pept 8253 pg/mL (0-450); Osmolality Calculated 274 mOsm/kg (285-295); Potassium 3.9 mmol/L (3.5-5.1); Sodium 133 mmol/L (136-145); Total Bilirubin 0.9 mg/dL (0.15-1.2); Total Protein 6.7 g/dL (6.6-8.7)
[2022-09-09 15:20] LABS: ABG PCO2 27.9 mmHg (35-45); Arterial Blood Gas Hematocrit 38.1 % (42-52); Base Excess ABG -0.6 mmol/L (-2.0-2.0); Blood Gas Allen Test Pos; Blood Gas Operator Identificat WALCI; Blood Gas Sample Site Radial, left; Blood Gas Sample Type Arterial; HCO3 ABG 21.6 mmol/L (22-26)
[2022-09-09 16:05] LABS: Troponin 5 2HR 39.41 ng/L (0-15)
[2022-09-09 16:11] LABS: Troponin 5 2HR Delta 0.41 ABS# (0-10)
--- NOTE | 2022-09-09 16:40 | ECG_ITS ---
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 Measurements Intervals [place] Rate: 87 P: 77 HI: 212 QRS: 171 QRSD: 125 T: 0 QT: 414 QTc: 499 Interpretive Statements SINUS RHYTHM WITH FIRST DEGREE AV BLOCK WITH FREQUENT VENTRICULAR PREMATURE COMPLEXES INDETERMINATE AXIS MODERATE INTRAVENTRICULAR CONDUCTION DELAY [110+ ms QRS DURATION] Compared to ECG 09/09/2022 15:08:09 Intraventricular conduction delay now present Myocardial infarct finding no longer present Electronically Signed On 09-09-2022 21:14:16 CDT by Antonio Apodaca M.D. [id number]
== END 2022-09-09 17:32 | disposition home or self-care (01) ==
PROVIDERS: Emergency Provider Emergency Medicine; PCP Emergency Medicine Emergency Medical Services
DX: I11.0 Hypertensive heart disease with heart failure (principal); I50.9 Heart failure, unspecified; J44.9 Chronic obstructive pulmonary disease, unspecified; Z79.02 Long term (current) use of antithrombotics/antiplatelets; F17.220 Nicotine dependence, chewing tobacco, uncomplicated; I25.10 Atherosclerotic heart disease of native coronary artery without angina pectoris; Z85.21 Personal history of malignant neoplasm of larynx
CPT/HCPCS: 36415; 36600; 71045; 80053; 82803; 83880; 84484; 85025; 93005; 96374; 99285; J1940

== ENCOUNTER → 2022-09-10 08:35 | Outpatient (BNVA) | payer OTHER, SELFPAY | PROVIDERS: PCP Emergency Medicine Emergency Medical Services; Visit Provider Nurse Practitioner Family | DX: I11.0 Hypertensive heart disease with heart failure (principal); I50.9 Heart failure, unspecified; I25.5 Ischemic cardiomyopathy; I25.10 Atherosclerotic heart disease of native coronary artery without angina pectoris; F17.220 Nicotine dependence, chewing tobacco, uncomplicated | CPT/HCPCS: 99214 ==

== ENCOUNTER 2022-10-04 09:10 | Outpatient (CLI) | payer OTHER, SELFPAY ==
--- NOTE | 2022-10-04 10:11 | US_ITS ---
WS: [id number] RIGHT UPPER QUADRANT ULTRASOUND HISTORY: SCREENING FOR LIVER CANCER COMPARISON: Noncontrast CT 08/26/2022 Liver: 13.5 cm in length. Small shrunken liver with nodular surface. No masses are identified. No john e duct dilatation. Portal Vein: Normal hepatopetal flow with monophasic waveform. Gallbladder: Normally distended with stones. Small stones in the dependent gallbladder. No wall thick ening. CBD: 0.5 cm Pancreas: Partially obscured. Right kidney: 9.6 cm in length. Normal size and echogenicity. No hydronephrosis or mass. Aorta and IVC: Enlarged IVC. Aorta is normal. Small layering RIGHT pleural effusion. No ascites. US/US abdomen limited [id number] IMPRESSION: 1. Cirrhotic liver. No hepatic masses are identified. 2. Normal portal vein. 3. Cholelithiasis without acute cholecystitis. 4. Small RIGHT pleural effusion.
== END 2022-10-04 09:11 | disposition home or self-care (01) ==
PROVIDERS: PCP Emergency Medicine Emergency Medical Services; Visit Provider Emergency Medicine Emergency Medical Services
DX: K74.60 Unspecified cirrhosis of liver (principal); Z48.89 Encounter for other specified surgical aftercare; K80.20 Calculus of gallbladder without cholecystitis without obstruction; J90 Pleural effusion, not elsewhere classified
CPT/HCPCS: 76705; 99213

== ENCOUNTER → 2022-10-06 14:28 | Outpatient (BNVA) | payer OTHER, SELFPAY | PROVIDERS: PCP Emergency Medicine Emergency Medical Services; Visit Provider Internal Medicine | DX: I25.10 Atherosclerotic heart disease of native coronary artery without angina pectoris (principal); I11.0 Hypertensive heart disease with heart failure; I50.21 Acute systolic (congestive) heart failure; F17.200 Nicotine dependence, unspecified, uncomplicated | CPT/HCPCS: 36415; 80048; 83880; 99214 ==

== ENCOUNTER → 2022-12-06 09:16 | Outpatient (BNVA) | payer OTHER, SELFPAY | PROVIDERS: PCP Emergency Medicine Emergency Medical Services; Referring Provider Emergency Medicine Emergency Medical Services; Visit Provider Specialist | DX: M70.61 Trochanteric bursitis, right hip (principal) | CPT/HCPCS: 20610; 73502; 99213; J1100; J2795; J3301 ==

== ENCOUNTER → 2022-12-08 12:46 | Outpatient (BNVA) | payer OTHER, SELFPAY | PROVIDERS: PCP Emergency Medicine Emergency Medical Services; Visit Provider Nurse Practitioner Family | DX: I11.0 Hypertensive heart disease with heart failure (principal); I50.22 Chronic systolic (congestive) heart failure; F17.220 Nicotine dependence, chewing tobacco, uncomplicated | CPT/HCPCS: 36415; 80048; 83880; 99214 ==

== ENCOUNTER 2022-12-24 09:40 | Outpatient (RCR) | payer OTHER, SELFPAY | END 2022-12-27 23:59 | disposition home or self-care (01) | LOC: SPT 09:40 | PROVIDERS: PCP Emergency Medicine Emergency Medical Services; Visit Provider Emergency Medicine Emergency Medical Services | DX: M62.81 Muscle weakness (generalized) (principal) | CPT/HCPCS: 97161 ==

== ENCOUNTER 2023-01-03 07:23 | Outpatient (RCR) | payer OTHER, SELFPAY | END 2023-01-27 23:59 | disposition home or self-care (01) | LOC: SPT 07:23 | PROVIDERS: PCP Emergency Medicine Emergency Medical Services; Visit Provider Emergency Medicine Emergency Medical Services | DX: M62.81 Muscle weakness (generalized) (principal) | CPT/HCPCS: 97110 ==

== ENCOUNTER 2023-01-28 06:00 | Outpatient (RCR) | payer OTHER, SELFPAY | END 2023-02-26 23:59 | disposition home or self-care (01) | LOC: SPT 06:00 | PROVIDERS: PCP Emergency Medicine Emergency Medical Services; Visit Provider Emergency Medicine Emergency Medical Services | DX: M62.81 Muscle weakness (generalized) (principal) | CPT/HCPCS: 97110 ==

== ENCOUNTER → 2023-02-14 14:59 | Outpatient (BNVA) | payer OTHER, SELFPAY | PROVIDERS: PCP Emergency Medicine Emergency Medical Services; Visit Provider Nurse Practitioner Family | DX: L57.8 Other skin changes due to chronic exposure to nonionizing radiation (principal); L81.4 Other melanin hyperpigmentation; Z85.828 Personal history of other malignant neoplasm of skin; L57.0 Actinic keratosis | CPT/HCPCS: 17000; 99204 ==

== ENCOUNTER 2023-02-27 06:00 | Outpatient (RCR) | payer OTHER, SELFPAY | END 2023-03-29 23:59 | disposition home or self-care (01) | LOC: SPT 06:00 | PROVIDERS: PCP Emergency Medicine Emergency Medical Services; Visit Provider Emergency Medicine Emergency Medical Services | DX: M62.81 Muscle weakness (generalized) (principal) | CPT/HCPCS: 97110 ==

== ENCOUNTER 2023-03-30 06:00 | Outpatient (RCR) | payer OTHER, SELFPAY | END 2023-04-28 23:59 | disposition home or self-care (01) | LOC: SPT 06:00 | PROVIDERS: PCP Emergency Medicine Emergency Medical Services; Visit Provider Emergency Medicine Emergency Medical Services | DX: M62.81 Muscle weakness (generalized) (principal) | CPT/HCPCS: 97110 ==

== ENCOUNTER → 2023-03-31 07:21 | Outpatient (BNVA) | payer OTHER, SELFPAY | PROVIDERS: PCP Emergency Medicine Emergency Medical Services; Visit Provider Nurse Practitioner | DX: M70.61 Trochanteric bursitis, right hip (principal) | CPT/HCPCS: 20610; 99213; J1100; J2795; J3301 ==

== ENCOUNTER → 2023-04-14 12:19 | Outpatient (BNVA) | payer OTHER, SELFPAY | PROVIDERS: PCP Emergency Medicine Emergency Medical Services; Visit Provider Nurse Practitioner Family | DX: I11.0 Hypertensive heart disease with heart failure (principal); I50.22 Chronic systolic (congestive) heart failure; I25.10 Atherosclerotic heart disease of native coronary artery without angina pectoris; I48.91 Unspecified atrial fibrillation; F17.210 Nicotine dependence, cigarettes, uncomplicated | CPT/HCPCS: 99214 ==

== ENCOUNTER → 2023-05-19 10:11 | Outpatient (BNVA) | payer OTHER, SELFPAY | PROVIDERS: PCP Emergency Medicine Emergency Medical Services; Visit Provider Podiatrist Foot & Ankle Surgery | DX: M72.2 Plantar fascial fibromatosis; L03.115 Cellulitis of right lower limb | CPT/HCPCS: 20550; 73630; 99203; J1100; J3301 ==

== ENCOUNTER 2023-05-20 08:38 | Outpatient (RCR) | payer OTHER, SELFPAY | END 2023-05-29 23:59 | disposition home or self-care (01) | LOC: SPT 08:38 | PROVIDERS: PCP Emergency Medicine Emergency Medical Services; Visit Provider Emergency Medicine Emergency Medical Services | DX: M62.81 Muscle weakness (generalized) (principal) | CPT/HCPCS: 97110 ==

== ENCOUNTER → 2023-06-09 09:49 | Outpatient (BNVA) | payer OTHER, SELFPAY | PROVIDERS: PCP Emergency Medicine Emergency Medical Services; Visit Provider Podiatrist Foot & Ankle Surgery | DX: M72.2 Plantar fascial fibromatosis; L03.115 Cellulitis of right lower limb | CPT/HCPCS: 20550; 73650; J1100; J3301 ==

== ENCOUNTER → 2023-06-23 09:13 | Outpatient (BNVA) | payer OTHER, MEDICAID, SELFPAY | PROVIDERS: PCP Emergency Medicine Emergency Medical Services; Visit Provider Podiatrist Foot & Ankle Surgery | DX: M72.2 Plantar fascial fibromatosis; L03.115 Cellulitis of right lower limb | CPT/HCPCS: 99213 ==

== ENCOUNTER → 2023-07-19 08:28 | Outpatient (BNVA) | payer OTHER, SELFPAY | PROVIDERS: PCP Emergency Medicine Emergency Medical Services; Visit Provider Nurse Practitioner Family | DX: L57.0 Actinic keratosis (principal); L57.8 Other skin changes due to chronic exposure to nonionizing radiation; L81.4 Other melanin hyperpigmentation; Z85.828 Personal history of other malignant neoplasm of skin | CPT/HCPCS: 17000; 99214 ==

== ENCOUNTER → 2023-07-20 10:31 | Outpatient (BNVA) | payer OTHER, SELFPAY | PROVIDERS: PCP Emergency Medicine Emergency Medical Services; Referring Provider Emergency Medicine Emergency Medical Services; Visit Provider Surgery | DX: K92.2 Gastrointestinal hemorrhage, unspecified (principal); K62.5 Hemorrhage of anus and rectum | CPT/HCPCS: 99203 ==

== ENCOUNTER 2023-07-28 06:00 | Outpatient (RCR) | payer OTHER, SELFPAY | END 2023-07-28 23:59 | disposition home or self-care (01) | LOC: SPT 06:00 | PROVIDERS: PCP Emergency Medicine Emergency Medical Services; Visit Provider Emergency Medicine Emergency Medical Services | DX: R26.9 Unspecified abnormalities of gait and mobility (principal) | CPT/HCPCS: 97161 ==

== ENCOUNTER 2023-07-29 06:00 | Outpatient (RCR) | payer OTHER, SELFPAY | END 2023-08-28 23:59 | disposition home or self-care (01) | LOC: SPT 06:00 | PROVIDERS: PCP Emergency Medicine Emergency Medical Services; Visit Provider Emergency Medicine Emergency Medical Services | DX: R26.9 Unspecified abnormalities of gait and mobility (principal) | CPT/HCPCS: 97110 ==

== ENCOUNTER → 2023-08-12 07:38 | Outpatient (BNVA) | payer OTHER, SELFPAY | PROVIDERS: PCP Emergency Medicine Emergency Medical Services; Visit Provider Nurse Practitioner | DX: M70.61 Trochanteric bursitis, right hip; Z71.89 Other specified counseling | CPT/HCPCS: 20610; J1100; J2795; J3301 ==

== ENCOUNTER 2023-08-29 06:00 | Outpatient (RCR) | payer OTHER, SELFPAY | END 2023-09-27 23:59 | disposition home or self-care (01) | LOC: SPT 06:00 | PROVIDERS: PCP Emergency Medicine Emergency Medical Services; Visit Provider Emergency Medicine Emergency Medical Services | DX: R26.9 Unspecified abnormalities of gait and mobility (principal) | CPT/HCPCS: 97110 ==

== ENCOUNTER 2023-09-28 06:00 | Outpatient (RCR) | payer OTHER, SELFPAY | END 2023-10-28 23:59 | disposition home or self-care (01) | LOC: SPT 06:00 | PROVIDERS: PCP Emergency Medicine Emergency Medical Services; Visit Provider Emergency Medicine Emergency Medical Services | DX: R26.9 Unspecified abnormalities of gait and mobility (principal) | CPT/HCPCS: 97110 ==

== ENCOUNTER → 2023-11-25 08:19 | Outpatient (BNVA) | payer OTHER, SELFPAY | PROVIDERS: PCP Emergency Medicine Emergency Medical Services; Visit Provider Nurse Practitioner | DX: M70.61 Trochanteric bursitis, right hip; Z71.89 Other specified counseling | CPT/HCPCS: 20610; J1100; J2795; J3301 ==

== ENCOUNTER → 2023-11-29 11:15 | Outpatient (BNVA) | payer OTHER, SELFPAY | PROVIDERS: PCP Emergency Medicine Emergency Medical Services; Visit Provider Nurse Practitioner Family | DX: L57.0 Actinic keratosis (principal); B07.8 Other viral warts; S80.922A Unspecified superficial injury of left lower leg, initial encounter; X58.XXXA Exposure to other specified factors, initial encounter; Z85.828 Personal history of other malignant neoplasm of skin | CPT/HCPCS: 17000; 17110; 99213 ==

== ENCOUNTER 2023-12-05 10:17 | Emergency (ER) | payer OTHER, SELFPAY ==
[2023-12-05] VITALS (9 sets, daily range): BP systolic 101–159; BP diastolic 62–78; PULSE 74–93; RESP 15–22; TEMP 36.9; O2SAT 91–98; BMI 25.1
--- NOTE | 2023-12-05 10:18 | ECG_ITS ---
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 Measurements Intervals [place] Rate: 85 P: 0 [place]: 0 QRS: 71 QRSD: 119 T: -6 QT: 429 QTc: 512 Interpretive Statements UNCERTAIN IRREGULAR RHYTHM MODERATE INTRAVENTRICULAR CONDUCTION DELAY [110+ ms QRS DURATION] MODERATE ST DEPRESSION [0.05+ mV ST DEPRESSION] ABNORMAL QRS-T ANGLE [QRS-T AXIS DIFFERENCE > 60] PROLONGED QT INTERVAL Compared to ECG 09/09/2022 16:40:39 ST (T wave) deviation now present Prolonged QT interval now present Sinus rhythm no longer present First degree AV block no longer present Indeterminate axis no longer present Electronically Signed On 12-05-2023 12:01:33 CDT by Rober Marx M.D. [id number]
--- NOTE | 2023-12-05 10:27 | XR_ITS ---
WS: [id number] Portable AP upright chest, 12/05/2023 Clinical Data: dyspnea/cough Comparison: Portable chest, 09/09/2022 Findings: No nodules, masses or effusions are seen. The heart is normal. The pulmonary vascularity is not increased. No pneumonia or pneumothorax is seen. The aortic arch and descending thoracic aorta s how mild calcification and tortuosity. There is vertebroplasty cement in the lower thoracic or upper lumbar vertebral body. XR/XR chest 1V portable [id number] Impression: Atherosclerosis.
[2023-12-05] MEDS: aspirin 81 mg Chew Tablet 324 MG PO (11:06)
[2023-12-05 11:28] LABS: Basophils # 0.1 10^3/uL (0.0-0.1); Basophils % 0.6 %; Eosinophils % 0.2 %; Hematocrit 41.2 % (37-53); Lymphocytes # 1.3 10^3/uL (0.8-4.8); Lymphocytes % 10.3 %; Mean Corpuscular HGB Conc 35.9 g/dL (30-55); Mean Corpuscular Hemoglobin 33.5 pg (27-33); Mean Corpuscular Volume 93.2 fl (82-101); Mean Platelet Volume 8.7 fL (7.4-10.4); Monocytes # 1.1 10^3/uL (0.2-0.9); Monocytes % 8.1 %; Neutrophils # 10.34 10^3/uL (1.8-7.7); Neutrophils % 79.6 %; Nucleated Red Blood Cells % 0 %; Platelet Count 365 10^3/cmm (157-399); Red Blood Count 4.42 10^6/uL (3.85-5.65); Red Cell Distribution Width 13.3 % (12.1-15.1)
--- NOTE | 2023-12-05 11:32 | ED_ITS ---
HPI - Chest Pain 2 General: Chief Complaint: Chest Pain Stated Complaint: chest pain, sob Time Seen by Provider: 12/05/23 10:25 Source: patient Mode of arrival: ambulatory Limitations: no limitations History of Present Illness: 83-year-old male states he had cough con gestion for the last 4 days states he only has allergy states he been sneezing a lot has been having some sharp pains with his cough. He denies any severe dyspnea denies any fever he does have a history of COPD. He has some mild wheezing here denies any worse improved factors are currently Associated symptoms: Reports dyspnea; Deny abdominal pain, fever(s), nausea or vomiting Review of Systems 2 Const: Denies: fever(s), chills, body aches or change in appetite ENMT: Denies: throat pain or dental pain Card: Reports: chest pain Resp: Reports: dyspnea, non-productive cough and wheezing GI: Denies: abdominal pain, nausea, vomiting or diarrhea : Denies: dysuria Musc: Denies: neck pain or back pain Skin/Breast: Denies: rash Neuro: Denies: headache(s) PFSH ED 2 PFSH: Medical History Chronic systolic CHF (congestive heart failure) 08/19/22: LVEF 15% Atrial fibrillation intermittent CAD (coronary artery disease) BPH loc w urin obs/LUTS Chronic decreased force of stream without RUTIs gross hematuria (previously prior to catheterization placement) or retention. 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, initial treatment with imiquimod, follows with Dr Gil Chronic alcohol use History of smoking Nicotine dependence, chewing tobacco, with other nicotine-induced disorders COPD (chronic obstructive pulmonary disease) Compression fx, lumbar spine 07/2022 L1, L3, L4 Lumbar disc disease with radiculopathy Amputated toe of left foot discharged from wound care 07/05/22, follows with Dr Brunner PAC (premature atrial contraction) Chronic hyponatremia Severe peripheral arterial disease Malignant neoplasm of glottis Claudication HTN (hypertension) History of nonmelanoma skin cancer Surgical History Status post kyphoplasty (08/06/22) L1, L3, L4 S/P right coronary artery (RCA) stent placement (08/30/22) S/P peripheral artery angioplasty with stent placement 12/2021 Left common/External Iliac Artery with 80% stenosis treated with AB ARMADA [id number]. 8.0 x 19 mm Omnilink stent was placed. Left Proximal Superficial Femoral Artery with 80-90 % stenosis treated with AB ARMADA 35 [id number]. 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 History of hip surgery right hip fracture repair Family History Other No pertinent family history Social History Smoking and tobacco/nicotine status: former use of tobacco/nicotine Alcohol intake: current Alcohol type: hard liquor Substance/Drug Use: current Substance/Drug use frequency: Special occassions/opportunity only Lives independently: Yes Household members: none Housing: House Physical Exam 2 Const: COMMON NORMALS: no acute distress, patient oriented x3 and healthy appearing HENMT: COMMON NORMALS: normocephalic and atraumatic HEAD & SCALP: n ormocephalic and atraumatic Eye: COMMON NORMALS: conjunctivae normal CONJUNCTIVA: Yes conjunctivae normal Neck/C-Spine: COMMON NORMALS: full ROM and supple Chest: COMMONS NORMALS: normal inspection of the chest and normal palpation of entire chest wall Resp: COMMON NORMALS: normal respiratory effort, No retractions and No use of accessory muscles AUSCULTATION: wheezes Cardio: COMMON NORMALS: regular rate, regular rhythm and No murmurs present (Cardio) RATE: regular rate RHYTHM: regular rhythm GI: COMMON NORMALS: Normal to inspection, nondistended, normoactive bowel sounds present, Soft to palpation, non-tender and no masses PALPATION: Yes Soft to palpation Extremity: COMMON NORMALS: normal to inspection and full ROM Neuro: COMMON NORMALS: patient oriented x3, moves all extremities and no focal motor deficits Psych: COMMON NORMALS: mental status grossly normal, Normal thought process present and cooperative THOUGHT PROCESS: Normal thought process present Skin: COMMON NORMALS: no rashes or lesions noted and no wounds GENERAL SKIN EXAM: no rashes or lesions noted Course 2 Vital Signs: Vital signs: Vital Signs Temperature 98.4 F 12/05/23 10:24 Pulse Rate 76 12/05/23 13:30 Respiratory Rate 15 12/05/23 13:30 Blood Pressure 146/68 12/05/23 13:30 Pulse Oximetry 92 12/05/23 13:30 Oxygen Delivery Me thod Room Air 12/05/23 12:30 MDM - Chest Pain Medical Decision Making Patient presents here with cough congestion states he feels much improved after breathing treatment likely has a bronchitis we will place him on albuterol along with Keflex did give him a dose steroids here he is hypokalemic here he told me he is always hypokalemic his potassium was up to 4 I recommend admission he states he feels improved does not want to be admitted and cannot be admitted will increase his potassium the next 5 days and he is to recheck it. Medical Records I reviewed the patient's medical records. Lab Data I reviewed the patient's lab results. 12/05/23 11:16 12/05/23 13:00 Radiology Impressions Chest X-Ray 12/05/23 10:27 Impression: Atherosclerosis. Laboratory Results WBC 13.00 10^3/uL (3.29-11.43) H 12/05/23 11:16 RBC 4.42 10^6/uL (3.85-5.65) 12/05/23 11:16 Hgb 14.80 g/dL (11.27-16.99) 12/05/23 11:16 Hct 41.2 % (37-53) 12/05/23 11:16 MCV 93.2 fl (82-101) 12/05/23 11:16 MCH 33.5 pg (27-33) H 12/05/23 11:16 MCHC 35.9 g/dL (30-55) 12/05/23 11:16 RDW 13.3 % (12.1-15.1) 12/05/23 11:16 Plt Count 365 10^3/cmm (157-399) 12/05/23 11:16 MPV 8.7 fL (7.4-10.4) 12/05/23 11:16 Neut % (Auto) 79.6 % 12/05/23 11:16 Lymph % (Auto) 10.3 % 12/05/23 11:16 [place] % (Auto) 8.1 % 12/05/23 11:16 Eos % (Auto) 0.2 % 12/05/23 11:16 Baso % (Auto) 0.6 % 12/05/23 11:16 Neut # (Auto) 10.34 10^3/uL (1.8-7.7) H 12/05/23 11:16 Lymph # (Auto) 1.3 10^3/uL (0.8-4.8) 12/05/23 11:16 [place] # (Auto) 1.1 10^3/uL (0.2-0.9) H 12/05/23 11:16 Eos # (Auto) 0.0 10^3/uL (0.0-0.8) 12/05/23 11:16 Baso # (Auto) 0.1 10^3/uL (0.0-0.1) 12/05/23 11:16 Nucleated RBC % (auto) 0 % 12/05/23 11:16 Nucleated RBCs # 0.0 /100WBC 12/05/23 11:16 Sodium 127 mmol/L (136-145) L 12/05/23 13:00 Potassium 2.4 mmol/L (3.5-5.1) L* 12/05/23 13:00 Chloride 81 mmol/L (98-107) L 12/05/23 13:00 Carbon Dioxide 31 mmol/L (22-29) H 12/05/23 13:00 Anion Gap 17.4 (5-19) 12/05/23 13:00 BUN 22 mg/dL (8-23) 12/05/23 13:00 Creatinine 1.1 mg/dL (0.7-1.2) 12/05/23 13:00 GFR Calculation Not Reportable 12/05/23 13:00 Glucose 128 mg/dL (65-115) H 12/05/23 13:00 Calculated Osmolality 269 mOsm/kg (285-295) L 12/05/23 13:00 Calcium 8.8 mg/dL (8.5-10.5) 12/05/23 13:00 Magnesium 2.2 mg/dL (1.7-2.3) 12/05/23 11:16 Total Bilirubin 1.0 mg/dL (0.15-1.2) 12/05/23 11:16 AST 28 U/L (0-40) 12/05/23 11:16 ALT 24 U/L (0-41) 12/05/23 11:16 Alkaline Phosphatase 161 U/L (40-130) H 12/05/23 11:16 Troponin T Baseline 42 ng/L (0-15) H 12/05/23 11:16 Troponin T 120 Minute 37.97 ng/L (0-15) H 12/05/23 13:00 Delta Troponin T -4.03 ABS# (0-10) L 12/05/23 13:00 NT-Pro-B Natriuret Pep 282 pg/mL (0-450) 12/05/23 11:16 Total Protein 8.0 g/dL (6.6-8.7) 12/05/23 11:16 Albumin 4.4 g/dL (3.5-5.2) 12/05/23 11:16 Globulin 3.6 g/dL (1.3-4.6) 12/05/23 11:16 SARS-CoV-2 Ag (Rapid) negative (Negative) 12/05/23 11:39 All radiology interpretation(s) finalized by discharge EKG Data EKG 1: I personally reviewed and interpreted this EKG as follows: EKG interpretation date: 12/05/23 EKG interpretation time: 13:05 Interpretation: nsr hr [address] or t wave abnormalities qrs 124 qtc 369 Discharge Plan Discharge Patient Disposition: Home Clinical Impression: Bronchitis, Hypokalemia Condition: Stable Prescriptions: New potassium chloride 40 mEq/15 mL liquid 40 meq PO BID 5 Days Qty: 150 0RF cephalexin 500 mg capsule 500 mg PO TID 7 Days Qty: 21 0RF albuterol sulfate 90 mcg/actuation HFA aerosol inhaler 2 inh INHALATION Q6H PRN (Reason: shortness of breath or wheezing) Qty: 8 0RF No Action metolazone 2.5 mg tablet 2.5 mg PO DAILY Qty: 90 3RF furosemide 40 mg tablet 40 mg PO BID Qty: 180 3RF potassium chloride 20 mEq tablet extended release 20 meq PO BID Qty: 180 3RF Rx Instructions: Hold if do not take lasix multivitamin Tablet 1 tab PO DAILY acetaminophen [Tylenol] 325 mg Tablet 650 mg PO Q6H PRN (Reason: Pain/fever) magnesium oxide 400 mg magnesium Tablet 400 mg PO DAILY amiodarone [Pacerone] 200 mg Tablet 200 mg PO DAILY Qty: 30 0RF tamsulosin 0.4 mg Capsule 0.4 mg PO QPM Qty: 30 0RF clopidogrel 75 mg Tablet 75 mg PO DAILY Qty: 30 0RF atorvastatin 80 mg tablet 40 mg PO QPM folic acid 1 mg Tablet 1 mg PO DAILY ferrous gluconate 324 mg (37.5 mg iron) tablet 324 mg PO QAM albuterol sulfate [ProAir HFA] 90 mcg/actuation Hfa Aerosol Inhaler 2 puff INHALATION Q6H PRN (Reason: Shortness Of Breath) Discharge Orders: Discharge ED (Routine); Ordered 12/05/23 Ordered By: Dominic Ramsey Referrals: Sachin Gallagher DO [Primary Care Provider] - 4-7 days Discharge Diet: Advance as tolerated Discharge Activity: Resume usual activity Patient Instructions: Bronchitis (Acute) - Adult, Hypokalemia (ED) Coding Level of Care Code ED Title One Teacher for Jorge Betancourt
[2023-12-05] MEDS: ipratropium-albuterol 3 mL Neb INHALATION (11:43)
[2023-12-05 11:48] LABS: Troponin(5th) Baseline 42 ng/L (0-15)
[2023-12-05 11:51] LABS: Alanine Aminotransferase 24 U/L (0-41); Albumin Level 4.4 g/dL (3.5-5.2); Alkaline Phosphatase 161 U/L (40-130); Anion Gap 17.5 (5-19); Aspartate Amino Transferase 28 U/L (0-40); Blood Urea Nitrogen 22 mg/dL (8-23); Calcium 9.4 mg/dL (8.5-10.5); Carbon Dioxide 33 mmol/L (22-29); Chloride 81 mmol/L (98-107); Creatinine Clr Calc Pharmacy 50.0301; Globulin 3.6 g/dL (1.3-4.6); Glucose 118 mg/dL (65-115); Osmolality Calculated 272 mOsm/kg (285-295); Sodium 129 mmol/L (136-145)
[2023-12-05 11:52] LABS: Potassium 2.5 mmol/L (3.5-5.1)
[2023-12-05 12:00] LABS: NT Pro B Type Natriuretic Pept 282 pg/mL (0-450)
[2023-12-05 12:03] LABS: SARS Covid-2 Antigen negative (Negative)
[2023-12-05] MEDS: potassium chloride ER 20 mEq Tablet 60 MEQ PO (12:23)
[2023-12-05] MEDS: potassium chloride ER 20 mEq Tablet 40 MEQ PO (12:23)
[2023-12-05] MEDS: dexamethasone 10 mg/mL INJ IVP (12:25)
--- NOTE | 2023-12-05 12:28 | ECG_ITS ---
[facility] Test Date: 2023-12-15 Pat Name: Reginald Pelaez Department: Room: Gender: Male Pricer: : 1940 Requested By: Clemente Fine Order Number: [id number] Marcella MD: Rober Marx M.D. Measurements Intervals [place] Rate: 76 P: 0 [place]: 0 QRS: 34 QRSD: 124 T: 23 QT: 338 QTc: 382 Interpretive Statements ATRIAL FIBRILLATION MODERATE INTRAVENTRICULAR CONDUCTION DELAY [110+ ms QRS DURATION] NONSPECIFIC T-WAVE ABNORMALITY ABNORMAL RHYTHM ECG Compared to ECG 12/05/2023 10:18:12 T-wave abnormality now present ST (T wave) deviation no longer present Prolonged QT interval no longer present Electronically Signed On 12-05-2023 14:34:57 CDT by Rober Marx M.D. [id number]
[2023-12-05 12:38] LABS: Magnesium 2.2 mg/dL (1.7-2.3)
[2023-12-05 13:28] LABS: Anion Gap 17.4 (5-19); Blood Urea Nitrogen 22 mg/dL (8-23); Calcium 8.8 mg/dL (8.5-10.5); Carbon Dioxide 31 mmol/L (22-29); Chloride 81 mmol/L (98-107); Creatinine Clr Calc Pharmacy 54.5783; Glucose 128 mg/dL (65-115); Osmolality Calculated 269 mOsm/kg (285-295); Sodium 127 mmol/L (136-145)
[2023-12-05 13:29] LABS: Troponin 5 2HR 37.97 ng/L (0-15)
[2023-12-05 13:33] LABS: Troponin 5 2HR Delta -4.03 ABS# (0-10)
[2023-12-05 13:35] LABS: Potassium 2.4 mmol/L (3.5-5.1)
== END 2023-12-05 14:18 | disposition home or self-care (01) ==
PROVIDERS: Family Medicine; Emergency Provider Emergency Medicine; PCP Emergency Medicine Emergency Medical Services
DX: J44.89 Other specified chronic obstructive pulmonary disease (principal); E87.6 Hypokalemia; Z11.52 Encounter for screening for COVID-19; Z87.891 Personal history of nicotine dependence; I11.0 Hypertensive heart disease with heart failure; I50.22 Chronic systolic (congestive) heart failure; I25.10 Atherosclerotic heart disease of native coronary artery without angina pectoris; Z85.21 Personal history of malignant neoplasm of larynx
CPT/HCPCS: 71045; 80048; 80053; 83735; 83880; 84484; 85025; 87426; 93005; 94640; 96374; 99285; J1100

== ENCOUNTER 2023-12-11 06:30 | Emergency (ER) | payer OTHER, SELFPAY ==
[2023-12-11] VITALS (18 sets, daily range): BP systolic 67–148; BP diastolic 41–107; PULSE 64–142; RESP 16–29; TEMP 36.3; O2SAT 89–98; BMI 29.5
--- NOTE | 2023-12-11 06:41 | XRR_ITS ---
PROCEDURE INFORMATION: Exam: XR Chest Exam date and time: 12/11/2023 6:49 AM Age: 83 years old Clinical indication: Shortness of breath; Additional info: SOB TECHNIQUE: Imaging protocol: Radiologic exam of the chest. Views: 1 view. COMPARISON: CR XR chest 1V portable [id number] 12/05/2023 10:35 AM FINDINGS: Lungs: No consolidated infiltrate is appreciated. There are changes of emphysema. There is linear atelectasis at the lung bases. Pleural spaces: Unremarkable. No pleural effusion. No pneumothorax. Heart/Mediastinum: Heart size is normal. There is calcified plaque involving the aorta. Bones/joints: Unremarkable. XR/XR chest 1V portable [id number] IMPRESSION: 1. Emphysema. 2. Suspect atelectasis at the lung bases.
--- NOTE | 2023-12-11 06:42 | ECG_ITS ---
[facility] Test Date: 2023-12-11 Pat Name: Reginald Pelaez Department: Room: Gender: Male [employer] Tender: : 1940 Requested By: Ernst Lee Order Number: [id number] Marcella MD: Taz Goel M.D. Measurements Intervals [place] Rate: 86 P: 83 [place]: 194 QRS: 3 QRSD: 126 T: 24 QT: 313 QTc: 375 Interpretive Statements SINUS RHYTHM WITH OCCASIONAL PVCs and PACs INTRAVENTRICULAR CONDUCTION DELAY NONSPECIFIC ST & T-WAVE ABNORMALITY ABNORMAL RHYTHM ECG Compared to ECG 12/05/2023 10:18:12 Ventricular premature complex(es) now present T-wave abnormality now present Electronically Signed On 12-11-2023 13:22:23 CDT by Taz Goel M.D. [id number]
[2023-12-11 07:16] LABS: Basophils % 0.3 %; Eosinophils # 0.1 10^3/uL (0.0-0.8); Eosinophils % 0.9 %; Hematocrit 39.8 % (37-53); Lymphocytes # 1.5 10^3/uL (0.8-4.8); Lymphocytes % 13.1 %; Mean Corpuscular HGB Conc 36.2 g/dL (30-55); Mean Corpuscular Hemoglobin 34.4 pg (27-33); Mean Corpuscular Volume 95.2 fl (82-101); Mean Platelet Volume 9.2 fL (7.4-10.4); Monocytes % 9.3 %; Neutrophils # 8.43 10^3/uL (1.8-7.7); Neutrophils % 75.2 %; Nucleated Red Blood Cells % 0 %; Platelet Count 366 10^3/cmm (157-399); Red Blood Count 4.18 10^6/uL (3.85-5.65); Red Cell Distribution Width 13.4 % (12.1-15.1); White Blood Count 11.21 10^3/uL (3.29-11.43)
--- NOTE | 2023-12-11 07:19 | W.ED.SOB ---
HPI - SOB/Dyspnea General: Chief Complaint: Shortness of Breath/Dyspnea Stated Complaint: SOB Time Seen by Provider: 12/11/23 06:41 Source: patient Mode of arrival: ambulatory Limitations: no limitations History of Present Illness: HPI Narrative: This patient returns to the emergency department because he says he is having difficulty breathing. He states that this symptoms been gone approximately a week or thereabouts. He relates it to at midnight [id number] ride with a friend to his. He was in the emergency department previously and was treated and at that time he states that he was feeling better but since that time he is run out of the medication he was given and he feels like it hurts to take a deep breath. He denies any any fevers or chills. He is coughing some but not very productive. He he states he was told he had a heart attack at 1 time but he does not have a history of congestive heart failure and does not see a harbor master. He states he has circulation problems and takes medication to help with that. He cannot tell me his medication list. Denies any recent travel or other contributing factors. No history of asthma or COPD he is a non-smoker but does chew tobacco. Associated symptoms: Reports chest pain; Deny abdominal pain, extremity pain, fever(s), nausea, syncope or vomiting Review of Systems Const: Denies: fever(s) or chills ENMT: Denies: odynophagia, nasal discharge, nasal congestion or nasal obstruction Card: Reports: chest pain; Denies: syncope or pre-syncope Resp: Reports: non-productive cough; Denies: wheezing or stridor GI: Denies: abdominal pain, nausea or vomiting : Denies: flank pain, difficulty urinating, dysuria or urinary frequency Musc: Denies: neck pain, back pain, extremity pain or extremity swelling Skin/Breast: Denies: rash, pruritus or erythema Neuro: Denies: headache(s), numbness in extremities or weakness in extremities Psych: Denies: anxiety or depression [facility] ED PFSH: Medical History Chronic systolic CHF (congestive heart failure) 08/19/22: LVEF 15% Atrial fibrillation intermittent CAD (coronary artery disease) BPH loc w urin obs/LUTS Chronic decreased force of stream without RUTIs gross hematuria (previously prior to catheterization placement) or retention. 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, initial treatment with imiquimod, follows with Dr Gil Chronic alcohol use History of smoking Nicotine dependence, chewing tobacco, with other nicotine-induced disorders COPD (chronic obstructive pulmonary disease) Compression fx, lumbar spine 07/2022 L1, L3, L4 Lumbar disc disease with radiculopathy Amputated toe of left foot discharged from wound care 07/05/22, follows with Dr Brunner PAC (premature atrial contraction) Chronic hyponatremia Severe peripheral arterial disease Malignant neoplasm of glottis Claudication HTN (hypertension) History of nonmelanoma skin cancer Surgical History Status post kyphoplasty (08/06/22) L1, L3, L4 S/P right coronary artery (RCA) stent placement (08/30/22) S/P peripheral artery angioplasty with stent placement 12/2021 Left common/External Iliac Artery with 80% stenosis treated with AB ARMADA [id number]. 8.0 x 19 mm Omnilink stent was placed. Left Proximal Superficial Femoral Artery with 80-90 % stenosis treated with AB ARMADA 35 [id number]. 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 Const: COMMON NORMALS: no acute distress, average body habitus and patient oriented x3 GENERAL APPEARANCE: cooperative HENMT: COMMON NORMALS: normocephalic, Normal nasal mucous membranes and turbinates present, moist oral mucous membranes and oropharynx normal HEAD & SCALP: normocephalic NOSE: Normal nasal mucous membranes and turbinates present Eye: COMMON NORMALS: Equal, round and reactive pupils present, EOMs intact bilaterally and conjunctivae normal CONJUNCTIVA: Yes conjunctivae normal PUPIL: Yes Equal, round and reactive pupils present Neck/C-Spine: COMMON NORMALS: full ROM, no lymphadenopathy and no JVD Chest: COMMONS NORMALS: normal inspection of the chest and normal palpation of entire chest wall Resp: COMMON NORMALS: normal respiratory effort, No retractions, No use of accessory muscles and clear to auscultation bilaterally AUSCULTATION: clear to auscultation bilaterally Cardio: COMMON NORMALS: no JVD, regular rate, regular rhythm, No murmurs present (Cardio) and Peripheral pulses 2+ throughout RATE: regular rate RHYTHM: regular rhythm PERIPHERAL PULSES: Peripheral pulses 2+ throughout GI: COMMON NORMALS: Normal to inspection, nondistended, normoactive bowel sounds present, Soft to palpation and non-tender PALPATION: Yes Soft to palpation : COMMON NORMALS: Yes no CVA tenderness BLADDER/KIDNEY EXAM: Yes no CVA tenderness Back/Pelvis: COMMON NORMALS: no CVA tenderness, thoracic and lumbar spine normal to inspection, no thoracic nor lumbar tenderness and thoraco-lumbar ROM normal Extremity: COMMON NORMALS: full ROM, capillary refill normal, no calf tenderness and no pedal edema Neuro: COMMON NORMALS: patient oriented x3, moves all extremities, no focal motor deficits and no sensory deficits noted Psych: COMMON NORMALS: mental status grossly normal Skin: COMMON NORMALS: turgor normal and no petechiae GENERAL SKIN EXAM: turgor normal and ecchymosis Course Reevaluation(s): Reevaluation #1: Will initiate both oral and IV potassium replacement. No arrhythmias currently we will continue to monitor carefully Time: 07:50 Reevaluation #2: Patient's potassium is still only 2.8 after oral dosing as well as his IV piggyback. Discussed the potential wrist particularly cardiac arrhythmia etc. with the patient. He acknowledges the potential risk but does not want to be placed in observation. He requests additional oral dosing and recheck his potassium level. Will give an additional 50 mill equivalents p.o. and recheck him in hour to 2 and see if his levels have risen. Time: 10:34 Reevaluation #3: Patient remains symptom-free. He has serial biomarkers have continued to fall making ACS less likely. He had a prior history of elevated troponins in the past and appears to have a chronic troponin leak. No evidence to suggest ongoing ischemia at this time. His potassium has risen to a level that is safe to be discharged. Also discussed the expected course of his acute bronchitis. Stable at this time and he desires to be discharged and does not desire any prolonged observation or admission. Time: 13:24 Vital Signs: Vital signs: Vital Signs Temperature 97.4 F L 12/11/23 06:32 Pulse Rate 73 12/11/23 11:30 Respiratory Rate 19 H 12/11/23 11:30 Blood Pressure 131/69 12/11/23 11:30 Pulse Oximetry 91 12/11/23 11:30 Oxygen Delivery Me thod Room Air 12/11/23 07:44 MDM - SOB/Dyspnea Medical Decision Making This patient presented to our emergency department as per HPI. He did recently been diagnosed with acute bronchitis and received appropriate therapy in the emergency department. He is also had a history of recurrent hypokalemia. His clinical examination did not reveal any overt signs of acute illness. Initial electrocardiograms and serial electrocardiograms are reassuring. Differential included possible pneumonia, ACS, congestive heart failure etc. Studies were ordered to help limit this differential. Chest x-ray did not reveal any signs of overt pneumonia. Did had changes which were atelectatic in nature. Initial biomarker was elevated and also his initial potassium was markedly low. Measures were undertaken to replete his potassium to include both IV and oral dosing. Repeat biomarkers were obtained at 2 and 6 hours to ensure no evidence of ACS. His BNP was reassuring as well. The patient's potassium improved to that which was safe to be discharged and his biomarkers did not continue to rise in fact fell and were consistent with prior elevations in biomarkers not thought to be related to chronic ischemia. Patient was stable and desired to be discharged and we discussed expected course of his bronchitis and that of the prolonged antibiotics are not indicated. We also added magnesium to his regimen to help maintain his potassium levels. Stable at this time we discussed return precautions. Medical Records I reviewed the patient's medical records. Also had hypokalemia last ED visit that was corrected. patient has a problem list that includes coronary disease as well as congestive heart failure. Lab Data I reviewed the patient's lab results. 12/11/23 07:07 12/11/23 12:47 Labs/Radiology: Radiology Impressions Chest X-Ray 12/11/23 06:41 IMPRESSION: 1. Emphysema. 2. Suspect atelectasis at the lung bases. Laboratory Results WBC 11.21 10^3/uL (3.29-11.43) 12/11/23 07:07 RBC 4.18 10^6/uL (3.85-5.65) 12/11/23 07:07 Hgb 14.40 g/dL (11.27-16.99) 12/11/23 07:07 Hct 39.8 % (37-53) 12/11/23 07:07 MCV 95.2 fl (82-101) 12/11/23 07:07 MCH 34.4 pg (27-33) H 12/11/23 07:07 MCHC 36.2 g/dL (30-55) 12/11/23 07:07 RDW 13.4 % (12.1-15.1) 12/11/23 07:07 Plt Count 366 10^3/cmm (157-399) 12/11/23 07:07 MPV 9.2 fL (7.4-10.4) 12/11/23 07:07 Neut % (Auto) 75.2 % 12/11/23 07:07 Lymph % (Auto) 13.1 % 12/11/23 07:07 [place] % (Auto) 9.3 % 12/11/23 07:07 Eos % (Auto) 0.9 % 12/11/23 07:07 Baso % (Auto) 0.3 % 12/11/23 07:07 Neut # (Auto) 8.43 10^3/uL (1.8-7.7) H 12/11/23 07:07 Lymph # (Auto) 1.5 10^3/uL (0.8-4.8) 12/11/23 07:07 [place] # (Auto) 1.0 10^3/uL (0.2-0.9) H 12/11/23 07:07 Eos # (Auto) 0.1 10^3/uL (0.0-0.8) 12/11/23 07:07 Baso # (Auto) 0.0 10^3/uL (0.0-0.1) 12/11/23 07:07 Nucleated RBC % (auto) 0 % 12/11/23 07:07 Nucleated RBCs # 0.0 /100WBC 12/11/23 07:07 Sodium 132 mmol/L (136-145) L 12/11/23 07:07 Potassium 3.4 mmol/L (3.5-5.1) L 12/11/23 12:47 Chloride 87 mmol/L (98-107) L 12/11/23 07:07 Carbon Dioxide 26 mmol/L (22-29) 12/11/23 07:07 Anion Gap 21.3 (5-19) H 12/11/23 07:07 BUN 32 mg/dL (8-23) H 12/11/23 07:07 Creatinine 1.5 mg/dL (0.7-1.2) H 12/11/23 07:07 GFR Calculation Not Reportable 12/11/23 07:07 Glucose 120 mg/dL (65-115) H 12/11/23 07:07 Calculated Osmolality 282 mOsm/kg (285-295) L 12/11/23 07:07 Calcium 9.1 mg/dL (8.5-10.5) 12/11/23 07:07 Magnesium 2.1 mg/dL (1.7-2.3) 12/11/23 07:07 Total Bilirubin 0.7 mg/dL (0.15-1.2) 12/11/23 07:07 AST 21 U/L (0-40) 12/11/23 07:07 ALT 22 U/L (0-41) 12/11/23 07:07 Alkaline Phosphatase 150 U/L (40-130) H 12/11/23 07:07 Troponin T Baseline 46 ng/L (0-15) H 12/11/23 07:07 Troponin T 120 Minute 40.72 ng/L (0-15) H 12/11/23 09:19 Delta Troponin T -5.28 ABS# (0-10) L 12/11/23 09:19 Troponin T Hi Sens 6Hr 39.27 ng/L (0-15) H 12/11/23 12:47 Troponin T Hi Sens 6Hr Delta -6.73 ng/L (0-12) L 12/11/23 12:47 NT-Pro-B Natriuret Pep 222 pg/mL (0-450) 12/11/23 07:07 Total Protein 7.2 g/dL (6.6-8.7) 12/11/23 07:07 Albumin 4.0 g/dL (3.5-5.2) 12/11/23 07:07 Globulin 3.2 g/dL (1.3-4.6) 12/11/23 07:07 All radiology interpretation(s) finalized by discharge EKG Data EKG 1: I personally reviewed and interpreted this EKG as follows: Interpretation: Review of resting EKG reveals ventricular rate of 86 bpm. Normal intervals, normal axis normal, normal QRS duration. Normal corrected QT interval. No acute ST-T wave changes noted at this time. He has some various changes in baseline but these are not felt to be ischemic changes. No significant change compared with previous EKG. EKG 2: I personally reviewed and interpreted this EKG as follows: Interpretation: Contemporaneous review of second EKG this visit reveals normal sinus rhythm occasional extrasystole. Prior septal FL noted but no acute changes. Ventricular rate of 69 bpm with a normal MA interval normal QRS duration normal corrected QT interval and normal axis. No dynamic changes Discharge Plan Discharge Patient Disposition: Home Clinical Impression: Hypokalemia, Bronchitis, Elevated troponin Condition: Stable Prescriptions: New albuterol sulfate 90 mcg/actuation HFA aerosol inhaler 2 inh inhalation Q8H PRN (Reason: shortness of breath or wheezing) Qty: 8.5 1RF benzonatate 100 mg capsule 100 mg PO Q6H PRN (Reason: cough) Qty: 40 0RF No Action metolazone 2.5 mg tablet 2.5 mg PO DAILY Qty: 90 3RF furosemide 40 mg tablet 40 mg PO BID Qty: 180 3RF potassium chloride 20 mEq tablet extended release 20 meq PO BID Qty: 180 3RF Rx Instructions: Hold if do not take lasix multivitamin Tablet 1 tab PO DAILY acetaminophen [Tylenol] 325 mg Tablet 650 mg PO Q6H PRN (Reason: Pain/fever) magnesium oxide 400 mg magnesium Tablet 400 mg PO DAILY amiodarone [Pacerone] 200 mg Tablet 200 mg PO DAILY Qty: 30 0RF tamsulosin 0.4 mg Capsule 0.4 mg PO QPM Qty: 30 0RF clopidogrel 75 mg Tablet 75 mg PO DAILY Qty: 30 0RF atorvastatin 80 mg tablet 40 mg PO QPM cephalexin 500 mg capsule 500 mg PO TID 7 Days Qty: 21 0RF albuterol sulfate 90 mcg/actuation HFA aerosol inhaler 2 inh INHALATION Q6H PRN (Reason: shortness of breath or wheezing) Qty: 8 0RF folic acid 1 mg Tablet 1 mg PO DAILY ferrous gluconate 324 mg (37.5 mg iron) tablet 324 mg PO QAM albuterol sulfate [ProAir HFA] 90 mcg/actuation Hfa Aerosol Inhaler 2 puff INHALATION Q6H PRN (Reason: Shortness Of Breath) Discharge Orders: Discharge ED (Routine); Ordered 12/11/23 Ordered By: Ernst Lee Referrals: Sachin Gallagher, DO [Primary Care Provider] - Discharge Diet: Usual diet Discharge Activity: Increase activity as tolerated Patient Instructions: Opioid Safety, Pain Management Activity Restrictions/Additional Instructions: You have bronchitis and your potassium was also low. It is important that you continue to take your potassium twice daily as ordered. Also helpful if you purchase [id number]-nrynfdd magnesium and take 400 mg of magnesium daily. We have refilled your albuterol inhaler and we have also provided a prescription for your cough. If your symptoms do not continue to improve or worsen at any time you are welcome to return to the emergency department. You should check in with your primary care doctor for review evaluation in approximately 2 weeks. The course of bronchitis can last for several weeks with persistent cough but if you develop any new symptoms such as fevers chills shortness of breath wheezing etc. return to this or the nearest emergency department. Coding Level of Care Code ED Just[employer] Operator for Jorge Betancourt
[2023-12-11 07:31] LABS: Troponin(5th) Baseline 46 ng/L (0-15)
[2023-12-11 07:40] LABS: Alanine Aminotransferase 22 U/L (0-41); Alkaline Phosphatase 150 U/L (40-130); Anion Gap 21.3 (5-19); Aspartate Amino Transferase 21 U/L (0-40); Blood Urea Nitrogen 32 mg/dL (8-23); Calcium 9.1 mg/dL (8.5-10.5); Carbon Dioxide 26 mmol/L (22-29); Chloride 87 mmol/L (98-107); Globulin 3.2 g/dL (1.3-4.6); Glucose 120 mg/dL (65-115); NT Pro B Type Natriuretic Pept 222 pg/mL (0-450); Osmolality Calculated 282 mOsm/kg (285-295); Sodium 132 mmol/L (136-145); Total Bilirubin 0.7 mg/dL (0.15-1.2); Total Protein 7.2 g/dL (6.6-8.7)
[2023-12-11 07:41] LABS: Creatinine Clr Calc Pharmacy 42.9975
[2023-12-11 07:42] LABS: Potassium 2.3 mmol/L (3.5-5.1)
[2023-12-11] MEDS: ipratropium-albuterol 3 mL Neb INHALATION (07:44)
[2023-12-11] MEDS: potassium bicarb 25 mEq Tablet 50 MEQ PO ×3 (08:03→10:53)
[2023-12-11] MEDS: potassium chloride premix 100 ML 50 MEQ IV (08:04)
[2023-12-11 08:09] LABS: Magnesium 2.1 mg/dL (1.7-2.3)
[2023-12-11] MEDS: calcium gluconate 0.1 gm/mL 10% SDV 10mL 1 GM IVP (08:25)
[2023-12-11] MEDS: lactated ringers 1,000 ML 999 ML IV (08:33)
[2023-12-11 09:44] LABS: Troponin 5 2HR 40.72 ng/L (0-15)
[2023-12-11 10:21] LABS: Troponin 5 2HR Delta -5.28 ABS# (0-10)
[2023-12-11 10:24] LABS: Potassium 2.8 mmol/L (3.5-5.1)
--- NOTE | 2023-12-11 12:38 | ECG_ITS ---
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 Measurements Intervals [place] Rate: 69 P: 79 MO: 209 QRS: 20 QRSD: 121 T: 43 QT: 438 QTc: 472 Interpretive Statements SINUS RHYTHM WITH OCCASIONAL PACs SEPTAL MYOCARDIAL INFARCTION , OF INDETERMINATE AGE [40+ ms Q WAVE IN V1/V2] Compared to ECG 12/11/2023 06:31:54 No significant change Electronically Signed On 12-11-2023 16:05:35 CDT by Taz Goel M.D. [id number]
[2023-12-11 13:12] LABS: Potassium 3.4 mmol/L (3.5-5.1)
[2023-12-11 13:13] LABS: Troponin 5 6HR 39.27 ng/L (0-15)
[2023-12-11 13:16] LABS: Troponin 5 6HR Delta -6.73 ng/L (0-12)
== END 2023-12-11 13:42 | disposition home or self-care (01) ==
PROVIDERS: Emergency Provider Emergency Medicine; PCP Emergency Medicine Emergency Medical Services
DX: J40 Bronchitis, not specified as acute or chronic (principal); E87.6 Hypokalemia; R79.89 Other specified abnormal findings of blood chemistry; I49.3 Ventricular premature depolarization; I49.1 Atrial premature depolarization; I11.0 Hypertensive heart disease with heart failure; I50.22 Chronic systolic (congestive) heart failure; J44.9 Chronic obstructive pulmonary disease, unspecified; I25.10 Atherosclerotic heart disease of native coronary artery without angina pectoris; Z79.899 Other long term (current) drug therapy; Z87.891 Personal history of nicotine dependence
CPT/HCPCS: 36415; 71045; 80053; 83735; 83880; 84132; 84484; 85025; 93005; 94640; 96365; 96375; 99285; J0612; J3480; J7120

== ENCOUNTER 2024-01-19 02:06 | Emergency (ER) | payer OTHER, MEDICARE, MEDICAID, SELFPAY ==
[2024-01-19 02:08] VITALS: BP 118/77; PULSE 70; RESP 24; TEMP 36.5; O2SAT 96; BMI 24.3
--- NOTE | 2024-01-19 02:15 | ECG_ITS ---
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 Measurements Intervals [place] Rate: 73 P: 0 [place]: 0 QRS: 9 QRSD: 127 T: 86 QT: 338 QTc: 373 Interpretive Statements SINUS RHYHTM PROBABLE LATERAL MYOCARDIAL INFARCTION , PROBABLY OLD [35 ms Q WAVE IN I/aVL/V5/V6] Compared to ECG 12/15/2023 13:05:16 Myocardial infarct finding now present Intraventricular conduction delay no longer present T-wave abnormality no longer present Electronically Signed On 01-19-2024 8:04:09 CDT by Rober Marx M.D. [id number]
--- NOTE | 2024-01-19 02:20 | XRR_ITS ---
PROCEDURE INFORMATION: Exam: XR Chest Exam date and time: 01/19/2024 2:34 AM Age: 83 years old Clinical indication: Pain; Chest pressure; Prior surgery; Surgery date: 6+ months; Surgery type: Rca stent; Patient HX: HX of nonmelanoma skin CA, smoker; Additional info: Chest pain dyspnea TECHNIQUE: Imaging protocol: Radiologic exam of the chest. Views: 1 view. COMPARISON: CR (CHEST, ) 12/11/2023 6:49 AM FINDINGS: Tubes, catheters and devices: Monitor leads project over the chest. Lungs: Mild chronic bibasilar atelectasis, fibrosis or scarring. No evidence of superimposed consolidation. Pleural spaces: No significant costophrenic angle blunting. No pneumothorax. Heart/Mediastinum: Heart size is enlarged but stable in configuration. Vasculature: Atherosclerotic tortuosity and calcification of the thoracic aorta. Bones/joints: Bony demineralization and degenerative bony changes. Previous L1 vertebroplasty. XR/XR chest 1V portable [id number] IMPRESSION: 1. Stable cardiomegaly. 2. Mild chronic bibasilar atelectasis, fibrosis or scarring. 3. Atherosclerotic vascular disease.
[2024-01-19 02:28] LABS: Basophils % 0.3 %; Eosinophils % 0.1 %; Hematocrit 35.7 % (37-53); Lymphocytes # 1.5 10^3/uL (0.8-4.8); Lymphocytes % 14.8 %; Mean Corpuscular HGB Conc 36.7 g/dL (30-55); Mean Corpuscular Hemoglobin 33.5 pg (27-33); Mean Corpuscular Volume 91.3 fl (82-101); Mean Platelet Volume 8.4 fL (7.4-10.4); Monocytes # 1.1 10^3/uL (0.2-0.9); Monocytes % 11.5 %; Neutrophils % 72.2 %; Nucleated Red Blood Cells % 0 %; Platelet Count 286 10^3/cmm (157-399); Red Blood Count 3.91 10^6/uL (3.85-5.65); Red Cell Distribution Width 14.6 % (12.1-15.1); White Blood Count 9.83 10^3/uL (3.29-11.43)
--- NOTE | 2024-01-19 02:48 | ED_ITS ---
HPI - Chest Pain 2 General: Chief Complaint: Chest Pain Stated Complaint: SOB Time Seen by Provider: 01/19/24 02:10 History of Present Illness: Patient presents to the ER complaining of dyspnea and chest pain. Patient states he is having difficulty breathing dizziness and has had some congestion. All this been going on for about 3 weeks since he got the original diagnosis with bronchitis. Patient has been treated with Tessalon Perles, an antibiotic, inhaler and the lesions made any difference. Patient says his chest is just full and he want something stronger. Patient does not appear in any distress and he appears nontoxic his O2 saturation is 96% on room air Related Data Home Medications Medication Instructions Recorded Confirmed multivitamin 1 tab PO DAILY 01/21/22 11/25/23 albuterol sulfate 90 mcg/actuation 2 puff inhalation Q6H PRN 08/03/22 12/05/23 aerosol inhaler (ProAir HFA) Shortness Of Breath ferrous gluconate 324 mg (37.5 mg 324 mg PO QAM 08/03/22 12/05/23 iron) tablet folic acid 1 mg tablet 1 mg PO DAILY 08/03/22 12/05/23 acetaminophen 325 mg tablet 650 mg PO Q6H PRN Pain/fever 08/19/22 12/05/23 (Tylenol) magnesium oxide 400 mg PO DAILY 08/19/22 12/05/23 atorvastatin 80 mg tablet 40 mg PO QPM 12/05/23 12/05/23 Previous Rx's Medication Instructions Recorded amiodarone 200 mg tablet (Pacerone) 200 mg PO DAILY #30 tabs 09/02/22 tamsulosin 0.4 mg capsule 0.4 mg PO QPM #30 caps 09/02/22 clopidogrel 75 mg tablet 75 mg PO DAILY #30 tabs 09/04/22 metolazone 2.5 mg tablet 2.5 mg PO DAILY #90 tabs 10/26/22 albuterol sulfate 90 mcg/actuation 2 inh inhalation Q6H PRN shortness 12/05/23 aerosol inhaler of breath or wheezing #8 grams albuterol sulfate 90 mcg/actuation 2 inh inhalation Q8H PRN shortness 12/11/23 aerosol inhaler of breath or wheezing #8.5 grams benzonatate 100 mg capsule 100 mg PO Q6H PRN cough #40 caps 12/11/23 furosemide 40 mg tablet See Rx Instructions .Route 01/03/24 .COMPLEX #180 tabs potassium chloride 20 mEq See Rx Instructions .Route 01/03/24 tablet,extended release .COMPLEX #180 tabs guaifenesin 1,200 mg tablet, 1,200 mg PO BID #30 tabs 01/19/24 extended release 12 hr potassium chloride 40 mEq/15 mL 15 meq (5.625 mL) PO BID 7 days 01/19/24 oral liquid #78.75 mL prednisone 50 mg tablet 50 mg PO DAILY #5 tabs 01/19/24 Allergies Allergy/AdvReac Type Severity Reaction Status Date / Time No Known Allergies Allergy Verified 01/19/24 02:16 Review of Systems 2 General: Reports: 10 or more systems reviewed and unremarkable except in HPI and below PFSH ED 2 PFSH: Medical History Chronic systolic CHF (congestive heart failure) 08/19/22: LVEF 15% Atrial fibrillation intermittent CAD (coronary artery disease) BPH loc w urin obs/LUTS Chronic decreased force of stream without RUTIs gross hematuria (previously prior to catheterization placement) or retention. 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, initial treatment with imiquimod, follows with Dr Gil Chronic alcohol use History of smoking Nicotine dependence, chewing tobacco, with other nicotine-induced disorders COPD (chronic obstructive pulmonary disease) Compression fx, lumbar spine 07/2022 L1, L3, L4 Lumbar disc disease with radiculopathy Amputated toe of left foot discharged from wound care 07/05/22, follows with Dr Brunner PAC (premature atrial contraction) Chronic hyponatremia Severe peripheral arterial disease Malignant neoplasm of glottis Claudication HTN (hypertension) History of nonmelanoma skin cancer Surgical History Status post kyphoplasty (08/06/22) L1, L3, L4 S/P right coronary artery (RCA) stent placement (08/30/22) S/P peripheral artery angioplasty with stent placement 12/2021 Left common/External Iliac Artery with 80% stenosis treated with AB ARMADA [id number]. 8.0 x 19 mm Omnilink stent was placed. Left Proximal Superficial Femoral Artery with 80-90 % stenosis treated with AB ARMADA 35 [id number]. 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 History of hip surgery right hip fracture repair Family History Other No pertinent family history Social History Smoking and tobacco/nicotine status: former use of tobacco/nicotine Alcohol intake: current Alcohol type: hard liquor Substance/Drug Use: current Substance/Drug use frequency: Special occassions/opportunity only Lives independently: Yes Household members: none Housing: House Physical Exam 2 Const: COMMON NORMALS: no acute distress, average body habitus, patient oriented x3, no limitations, healthy appearing, alert and well nourished HENMT: COMMON NORMALS: normocephalic, atraumatic, hearing grossly normal bilaterally, external ears normal, Normal external nose present and moist oral mucous membranes HEAD & SCALP: normocephalic and atraumatic NOSE: Normal external nose present EXTERNAL EAR: Yes external ears normal Neck/C-Spine: COMMON NORMALS: no JVD Chest: COMMONS NORMALS: normal inspection of the chest and normal palpation of entire chest wall Resp: COMMON NORMALS: normal respiratory effort, No retractions, No use of accessory muscles and clear to auscultation bilaterally AUSCULTATION: clear to auscultation bilaterally Cardio: COMMON NORMALS: no JVD, regular rate, regular rhythm, S1 normal heart sound present, S2 normal heart sound present, No gallops present (Cardio), No clicks present (Cardio), No murmurs present (Cardio) and No rub (Cardio) R ATE: regular rate RHYTHM: regular rhythm HEART SOUNDS: S1 normal heart sound present and S2 normal heart sound present GI: COMMON NORMALS: Normal to inspection, nondistended, normoactive bowel sounds present, Soft to palpation, non-tender, No hepatosplenomegaly present and no masses PALPATION: Yes Soft to palpation and Yes No hepatosplenomegaly present Neuro: COMMON NORMALS: patient oriented x3 SENSORIUM/ORIENTATION: Yes alert Course 2 Vital Signs: Vital signs: Vital Signs Temperature 97.7 F 01/19/24 02:08 Pulse Rate 72 01/19/24 04:58 Respiratory Rate 17 01/19/24 04:58 Blood Pressure 127/62 01/19/24 04:58 Pulse Oximetry 94 01/19/24 04:58 Oxygen Delivery Me thod Room Air 01/19/24 02:08 MDM - Chest Pain Medical Decision Making Patient was given 25 mg Solu-Medrol and a total of 80 equivalents of oral potassium. Patient's potassium stated 2.5. Patient stated he always runs low noted in the past he has been 2.5 and discharged home on oral potassium. Chest x-ray looked stable, otherwise blood work and urinalysis is unremarkable, delta troponin was approximately 8. Patient will be placed on guaifenesin to help with chest congestion and oral potassium. Differential Diagnosis Unlikely acute massive pulmonary embolism, acute respiratory failure, acute myocardial infarction, cardiac arrest or sudden cardiac Medical Records I reviewed the patient's medical records. Lab Data I reviewed the patient's lab results. 01/19/24 02:24 01/19/24 04:46 Radiology Impressions Chest X-Ray 01/19/24 02:20 IMPRESSION: 1. Stable cardiomegaly. 2. Mild chronic bibasilar atelectasis, fibrosis or scarring. 3. Atherosclerotic vascular disease. Laboratory Results WBC 9.83 10^3/uL (3.29-11.43) 01/19/24 02:24 RBC 3.91 10^6/uL (3.85-5.65) 01/19/24 02:24 Hgb 13.10 g/dL (11.27-16.99) 01/19/24 02:24 Hct 35.7 % (37-53) L 01/19/24 02:24 MCV 91.3 fl (82-101) 01/19/24 02:24 MCH 33.5 pg (27-33) H 01/19/24 02:24 MCHC 36.7 g/dL (30-55) 01/19/24 02:24 RDW 14.6 % (12.1-15.1) 01/19/24 02:24 Plt Count 286 10^3/cmm (157-399) 01/19/24 02:24 MPV 8.4 fL (7.4-10.4) 01/19/24 02:24 Neut % (Auto) 72.2 % 01/19/24 02:24 Lymph % (Auto) 14.8 % 08/22/24 02:24 [place] % (Auto) 11.5 % 01/19/24 02:24 Eos % (Auto) 0.1 % 01/19/24 02:24 Baso % (Auto) 0.3 % 01/19/24 02:24 Neut # (Auto) 7.10 10^3/uL (1.8-7.7) 01/19/24 02:24 Lymph # (Auto) 1.5 10^3/uL (0.8-4.8) 01/19/24 02:24 [place] # (Auto) 1.1 10^3/uL (0.2-0.9) H 01/19/24 02:24 Eos # (Auto) 0.0 10^3/uL (0.0-0.8) 01/19/24 02:24 Baso # (Auto) 0.0 10^3/uL (0.0-0.1) 01/19/24 02:24 Nucleated RBC % (auto) 0 % 01/19/24 02:24 Nucleated RBCs # 0.0 /100WBC 01/19/24 02:24 Sodium 123 mmol/L (136-145) L 01/19/24 04:46 Potassium 2.5 mmol/L (3.5-5.1) L* 01/19/24 04:46 Chloride 81 mmol/L (98-107) L 01/19/24 04:46 Carbon Dioxide 27 mmol/L (22-29) 01/19/24 04:46 Anion Gap 17.5 (5-19) 01/19/24 04:46 BUN 19 mg/dL (8-23) 01/19/24 04:46 Creatinine 1.0 mg/dL (0.7-1.2) 01/19/24 04:46 GFR Calculation Not Reportable 01/19/24 04:46 Glucose 133 mg/dL (65-115) H 01/19/24 04:46 Calculated Osmolality 260 mOsm/kg (285-295) L 01/19/24 04:46 Calcium 8.4 mg/dL (8.5-10.5) L 01/19/24 04:46 Total Bilirubin 1.1 mg/dL (0.15-1.2) 01/19/24 02:24 AST 41 U/L (0-40) H 01/19/24 02:24 ALT 28 U/L (0-41) 01/19/24 02:24 Alkaline Phosphatase 169 U/L (40-130) H 01/19/24 02:24 Troponin T Baseline 49 ng/L (0-15) H 01/19/24 02:24 Troponin T 120 Minute 40.38 ng/L (0-15) H 01/19/24 04:46 Delta Troponin T -8.62 ABS# (0-10) L 01/19/24 04:46 Total Protein 6.9 g/dL (6.6-8.7) 01/19/24 02:24 Albumin 4.3 g/dL (3.5-5.2) 01/19/24 02:24 Globulin 2.6 g/dL (1.3-4.6) 01/19/24 02:24 Urine Color Yellow (Yellow) 01/19/24 02:23 Urine Appearance Clear (CLEAR) 01/19/24 02:23 Urine pH 7.0 (5-7) 01/19/24 02:23 Ur Specific [place] 1.007 (1.005-1.030) 01/19/24 02:23 Urine Protein Negative (Negative) 01/19/24 02:23 Urine Glucose (UA) Negative (Normal) 01/19/24 02:23 Urine Ketones Negative (Negative) 01/19/24 02:23 Urine Blood Negative (Negative) 01/19/24 02:23 Urine Nitrate Negative (Negative) 01/19/24 02:23 Urine Bilirubin Negative (Negative) 01/19/24 02:23 Urine Urobilinogen 0.2 mg/dL (Negative) 01/19/24 02:23 Ur Leukocyte Esterase Negative (Negative) 01/19/24 02:23 Urine RBC 0-2 /hpf (0-2) 01/19/24 02:23 Urine WBC 0-5 /hpf (0-5) 01/19/24 02:23 Ur Squamous Epith Cells 0-5 /hpf (0-5) 01/19/24 02:23 Amorphous Sediment Not Reportable 01/19/24 02:23 Urine Bacteria None seen /hpf (NONE) 01/19/24 02:23 Hyaline Casts 0.40 /lpf 01/19/24 02:23 All radiology interpretation(s) finalized by discharge Discharge Plan Discharge Patient Disposition: Home Clinical Impression: Acute hypokalemia, Chest congestion Condition: Stable Prescriptions: New prednisone 50 mg tablet 50 mg PO DAILY Qty: 5 0RF potassium chloride 40 mEq/15 mL liquid 15 meq PO BID 7 Days Qty: 78.75 0RF guaifenesin 1,200 mg tablet extended release 12hr 1,200 mg PO BID Qty: 30 0RF No Action metolazone 2.5 mg tablet 2.5 mg PO DAILY Qty: 90 3RF furosemide 40 mg tablet See Rx Instructions .ROUTE .COMPLEX Qty: 180 2RF Dose Instruction: Take 1 tablet by mouth twice daily Rx Instructions: Take 1 tablet by mouth twice daily potassium chloride 20 mEq tablet extended release See Rx Instructions .ROUTE .COMPLEX Qty: 180 2RF Dose Instruction: TAKE 1 TABLET BY MOUTH TWICE DAILY; HOLD IF YOU DO NOT TAKE LASIX Rx Instructions: TAKE 1 TABLET BY MOUTH TWICE DAILY; HOLD IF YOU DO NOT TAKE LASIX multivitamin Tablet 1 tab PO DAILY acetaminophen [Tylenol] 325 mg Tablet 650 mg PO Q6H PRN (Reason: Pain/fever) magnesium oxide 400 mg magnesium Tablet 400 mg PO DAILY amiodarone [Pacerone] 200 mg Tablet 200 mg PO DAILY Qty: 30 0RF tamsulosin 0.4 mg Capsule 0.4 mg PO QPM Qty: 30 0RF clopidogrel 75 mg Tablet 75 mg PO DAILY Qty: 30 0RF atorvastatin 80 mg tablet 40 mg PO QPM albuterol sulfate 90 mcg/actuation HFA aerosol inhaler 2 inh INHALATION Q6H PRN (Reason: shortness of breath or wheezing) Qty: 8 0RF benzonatate 100 mg capsule 100 mg PO Q6H PRN (Reason: cough) Qty: 40 0RF albuterol sulfate 90 mcg/actuation HFA aerosol inhaler 2 inh inhalation Q8H PRN (Reason: shortness of breath or wheezing) Qty: 8.5 1RF folic acid 1 mg Tablet 1 mg PO DAILY ferrous gluconate 324 mg (37.5 mg iron) tablet 324 mg PO QAM albuterol sulfate [ProAir HFA] 90 mcg/actuation Hfa Aerosol Inhaler 2 puff INHALATION Q6H PRN (Reason: Shortness Of Breath) Discharge Orders: Discharge ED (Routine); Ordered 01/19/24 Ordered By: Patrick Keith Referrals: Sachin Gallagher, DO [Primary Care Provider] - Patient Instructions: Decongestant/Expectorant (By mouth), Hypokalemia (ED) Activity Restrictions/Additional Instructions: 3 medicines have been sent to your pharmacy. Please pick them up and take them as directed. Please follow-up with your family practice physician in 7 days to have your potassium rechecked as it was low in the ER. You may need to start taking potassium supplementation consistently. Thank you for choosing [facility] for your healthcare needs today. Please realize that you were seen in the emergency department and that we are providing you with an emergency medical screening exam and this may not be a complete and all exclusive of all testing and/or medical workup we may need to determine your element or severity of your illness. It is very important that you follow-up as instructed with your primary care provider or specialist for the additional evaluation and to discuss your medical treatment plan. You may return to the emergency department should you have concerns or if your condition changes or worsens in any way. Coding Level of Care Code ED Agronomy Instructor for Jorge Betancourt
[2024-01-19] MEDS: methylPREDNISolone sod succ 125 mg/2 mL INJ IVP (02:50)
[2024-01-19 02:51] LABS: Troponin(5th) Baseline 49 ng/L (0-15)
[2024-01-19 02:53] LABS: Alanine Aminotransferase 28 U/L (0-41); Albumin Level 4.3 g/dL (3.5-5.2); Alkaline Phosphatase 169 U/L (40-130); Anion Gap 20.5 (5-19); Aspartate Amino Transferase 41 U/L (0-40); Blood Urea Nitrogen 20 mg/dL (8-23); Calcium 8.8 mg/dL (8.5-10.5); Carbon Dioxide 26 mmol/L (22-29); Chloride 78 mmol/L (98-107); Creatinine Clr Calc Pharmacy 53.9025; Globulin 2.6 g/dL (1.3-4.6); Glucose 115 mg/dL (65-115); Osmolality Calculated 258 mOsm/kg (285-295); Sodium 122 mmol/L (136-145); Total Bilirubin 1.1 mg/dL (0.15-1.2); Total Protein 6.9 g/dL (6.6-8.7)
[2024-01-19 02:54] VITALS: BP 107/64; PULSE 75; O2SAT 90
[2024-01-19 02:54] LABS: Potassium 2.5 mmol/L (3.5-5.1)
[2024-01-19] MEDS: potassium chloride ER 20 mEq Tablet 40 MEQ PO (03:17)
[2024-01-19 03:27] LABS: Charge for UA Resulting for Rev
[2024-01-19 03:30] LABS: Bilirubin Urine Negative (Negative); Blood Urine Negative (Negative); Glucose Urine UA Negative (Normal); Ketones Urine Negative (Negative); Leukocyte Esterase Urine Negative (Negative); Nitrate Urine Negative (Negative); Protein Urine Negative (Negative); Specific Gravity, Urine 1.007 (1.005-1.030); Urine Appearance Clear (CLEAR); Urine Color Yellow (Yellow); Urobilinogen Urine 0.2 mg/dL (Negative)
[2024-01-19 03:35] LABS: Bacteria Urine None Seen /hpf; RBC Urine 0-2 /hpf (0-2); Squamous Epithelial Cell Urine 0-5 /hpf (0-5); WBC Urine 0-5 /hpf (0-5)
[2024-01-19] MEDS: potassium chloride oral liq 20 mEq/15 mL UDC 40 MEQ PO (03:41)
[2024-01-19] MEDS: sodium chloride 0.9% 1,000 ML 999 ML IV (03:43)
[2024-01-19 03:46] VITALS: BP 121/73; PULSE 70; O2SAT 95
[2024-01-19 04:15] VITALS: BP 121/73; PULSE 77; O2SAT 95
--- NOTE | 2024-01-19 04:16 | ECG_ITS ---
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 Measurements Intervals [place] Rate: 76 P: 0 MN: 0 QRS: 38 QRSD: 114 T: 24 QT: 347 QTc: 392 Interpretive Statements SINUS RHYTHM MODERATE INTRAVENTRICULAR CONDUCTION DELAY [110+ ms QRS DURATION] NONSPECIFIC T-WAVE ABNORMALITY Compared to ECG 01/19/2024 02:15:23 Intraventricular conduction delay now present T-wave abnormality now present Myocardial infarct finding no longer present Electronically Signed On 01-19-2024 8:04:34 CDT by Rober Marx M.D. [id number]
[2024-01-19 04:58] VITALS: BP 127/62; PULSE 72; RESP 17; O2SAT 94
[2024-01-19 05:09] LABS: Troponin 5 2HR 40.38 ng/L (0-15)
[2024-01-19 05:11] LABS: Anion Gap 17.5 (5-19); Blood Urea Nitrogen 19 mg/dL (8-23); Calcium 8.4 mg/dL (8.5-10.5); Carbon Dioxide 27 mmol/L (22-29); Chloride 81 mmol/L (98-107); Creatinine Clr Calc Pharmacy 59.2927; Glucose 133 mg/dL (65-115); Osmolality Calculated 260 mOsm/kg (285-295); Sodium 123 mmol/L (136-145)
[2024-01-19 05:13] LABS: Troponin 5 2HR Delta -8.62 ABS# (0-10)
[2024-01-19 05:14] LABS: Potassium 2.5 mmol/L (3.5-5.1)
[2024-01-19 05:43] VITALS: BP 142/76; PULSE 78; O2SAT 90
== END 2024-01-19 05:40 | disposition home or self-care (01) ==
PROVIDERS: Emergency Provider Emergency Medicine; PCP Emergency Medicine Emergency Medical Services
DX: R09.89 Other specified symptoms and signs involving the circulatory and respiratory systems (principal); E87.6 Hypokalemia; Z79.02 Long term (current) use of antithrombotics/antiplatelets; Z87.891 Personal history of nicotine dependence; I11.0 Hypertensive heart disease with heart failure; I50.22 Chronic systolic (congestive) heart failure; I25.10 Atherosclerotic heart disease of native coronary artery without angina pectoris; J44.9 Chronic obstructive pulmonary disease, unspecified; Z85.21 Personal history of malignant neoplasm of larynx; Z95.5 Presence of coronary angioplasty implant and graft
CPT/HCPCS: 36415; 71045; 80048; 80053; 81003; 81015; 84484; 85025; 93005; 96361; 96374; 99285; J2919; J7030

== ENCOUNTER 2024-01-21 11:03 | Emergency (ER) | payer OTHER, MEDICARE, MEDICAID, SELFPAY ==
[2024-01-21 11:07] VITALS: BP 110/61; PULSE 77; RESP 22; TEMP 36.3; O2SAT 97
--- NOTE | 2024-01-21 11:21 | XRR_ITS ---
PROCEDURE INFORMATION: Exam: XR Chest Exam date and time: 01/21/2024 12:01 PM Age: 83 years old Clinical indication: Shortness of breath; Patient HX: SOB; Bronchitis; Cough TECHNIQUE: Imaging protocol: Radiologic exam of the chest. Views: 1 view. Total images: 3 COMPARISON: CR (CHEST, ) 01/19/2024 2:34 AM FINDINGS: Lungs: Trace bibasilar atelectasis or scar. Pleural spaces: Unremarkable. No pleural effusion. No pneumothorax. Heart/Mediastinum: Unremarkable. No cardiomegaly. Vasculature: Mild atherosclerotic disease burden is evident. Bones/joints: Vertebroplasty noted at L1. Diffuse osteopenia noted. XR/XR chest 1V portable [id number] IMPRESSION: Trace bibasilar atelectasis or scar.
[2024-01-21 11:49] LABS: Basophils % 0.3 %; Eosinophils % 0.2 %; Hematocrit 38.6 % (37-53); Lymphocytes # 1.8 10^3/uL (0.8-4.8); Lymphocytes % 17.5 %; Mean Corpuscular HGB Conc 33.9 g/dL (30-55); Mean Corpuscular Hemoglobin 32.9 pg (27-33); Mean Platelet Volume 8.9 fL (7.4-10.4); Monocytes % 9.9 %; Neutrophils # 7.44 10^3/uL (1.8-7.7); Neutrophils % 70.5 %; Nucleated Red Blood Cells % 0 %; Platelet Count 315 10^3/cmm (157-399); Red Blood Count 3.98 10^6/uL (3.85-5.65); Red Cell Distribution Width 15.6 % (12.1-15.1); White Blood Count 10.54 10^3/uL (3.29-11.43)
[2024-01-21 12:09] LABS: Troponin(5th) Baseline 44 ng/L (0-15)
[2024-01-21 12:12] LABS: Lactic Sepsis W/Reflex 3.1 mmol/L (0.5-2.2)
[2024-01-21 12:18] LABS: NT Pro B Type Natriuretic Pept 562 pg/mL (0-450); Procalcitonin 0.14 ng/mL (0-0.5)
[2024-01-21 12:29] LABS: Alanine Aminotransferase 29 U/L (0-41); Albumin Level 4.2 g/dL (3.5-5.2); Alkaline Phosphatase 146 U/L (40-130); Aspartate Amino Transferase 35 U/L (0-40); Blood Urea Nitrogen 18 mg/dL (8-23); C Reactive Protein 6.8 mg/L (0.0-4.9); Calcium 8.9 mg/dL (8.5-10.5); Carbon Dioxide 25 mmol/L (22-29); Chloride 86 mmol/L (98-107); Creatinine Clr Calc Pharmacy 60.0361; Globulin 2.4 g/dL (1.3-4.6); Glucose 107 mg/dL (65-115); Osmolality Calculated 264 mOsm/kg (285-295); Sodium 126 mmol/L (136-145); Total Bilirubin 0.8 mg/dL (0.15-1.2); Total Protein 6.6 g/dL (6.6-8.7)
[2024-01-21 13:36] LABS: Reflex Lactate Order REFLEX LACTIC ORDERD
[2024-01-21 13:43] VITALS: BP 123/75; PULSE 69; O2SAT 94
--- NOTE | 2024-01-21 13:57 | ECG_ITS ---
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 Measurements Intervals [place] Rate: 68 P: 114 NC: 187 QRS: 8 QRSD: 134 T: 52 QT: 481 QTc: 513 Interpretive Statements SINUS RHYTHM WITH OCCASIONAL VENTRICULAR PREMATURE COMPLEXES WITH OCCASIONAL SUPRAVENTRICULAR PREMATURE COMPLEXES INTRAVENTRICULAR CONDUCTION DELAY [130+ ms QRS DURATION] PROBABLE LATERAL MYOCARDIAL INFARCTION , PROBABLY OLD [35 ms Q WAVE IN I/aVL/V5/V6] Compared to ECG 01/19/2024 04:16:58 Ventricular premature complex(es) now present Myocardial infarct finding now present T-wave abnormality no longer present Electronically Signed On 01-21-2024 18:53:46 CDT by Antonio Apodaca M.D. [id number]
[2024-01-21] MEDS: HYDROcodone-acetaminophen 5-325 mg Tablet 1 TAB PO (14:01)
[2024-01-21] MEDS: dexamethasone 10 mg/mL INJ IVP (14:09)
[2024-01-21 14:11] VITALS: PULSE 75; RESP 16; O2SAT 95
[2024-01-21] MEDS: albuterol 2.5 mg/3 mL Neb INHALATION (14:11)
--- NOTE | 2024-01-21 14:19 | ED_ITS ---
HPI - SOB/Dyspnea 2 General: Chief Complaint: Shortness of Breath/Dyspnea Stated Complaint: sob, back pain Time Seen by Provider: 01/21/24 13:44 History of Present Illness: HPI Narrative: 83-year-old male with a history of CHF, A-fib, coronary artery disease, BPH, COPD and hypertension who presents to the emergency room with continued cough and pleuritic chest pain. He has been seen in the ER couple times for this already. He is on steroids. He has some guaifenesin as well. He says now this is helping. He needs something for the pain. He has some mild shortness of breath. He is not hypoxemic. Related Data Home Medications Medication Instructions Recorded Confirmed multivitamin 1 tab PO DAILY 01/21/22 11/25/23 albuterol sulfate 90 mcg/actuation 2 puff inhalation Q6H PRN 08/03/22 12/05/23 aerosol inhaler (ProAir HFA) Shortness Of Breath ferrous gluconate 324 mg (37.5 mg 324 mg PO QAM 08/03/22 12/05/23 iron) tablet folic acid 1 mg tablet 1 mg PO DAILY 08/03/22 12/05/23 acetaminophen 325 mg tablet 650 mg PO Q6H PRN Pain/fever 08/19/22 12/05/23 (Tylenol) magnesium oxide 400 mg PO DAILY 08/19/22 12/05/23 atorvastatin 80 mg tablet 40 mg PO QPM 12/05/23 12/05/23 Previous Rx's Medication Instructions Recorded amiodarone 200 mg tablet (Pacerone) 200 mg PO DAILY #30 tabs 09/02/22 tamsulosin 0.4 mg capsule 0.4 mg PO QPM #30 caps 09/02/22 clopidogrel 75 mg tablet 75 mg PO DAILY #30 tabs 09/04/22 metolazone 2.5 mg tablet 2.5 mg PO DAILY #90 tabs 10/26/22 albuterol sulfate 90 mcg/actuation 2 inh inhalation Q6H PRN shortness 12/05/23 aerosol inhaler of breath or wheezing #8 grams albuterol sulfate 90 mcg/actuation 2 inh inhalation Q8H PRN shortness 12/11/23 aerosol inhaler of breath or wheezing #8.5 grams benzonatate 100 mg capsule 100 mg PO Q6H PRN cough #40 caps 12/11/23 furosemide 40 mg tablet See Rx Instructions .Route 01/03/24 .COMPLEX #180 tabs potassium chloride 20 mEq See Rx Instructions .Route 01/03/24 tablet,extended release .COMPLEX #180 tabs guaifenesin 1,200 mg tablet, 1,200 mg PO BID #30 tabs 01/19/24 extended release 12 hr potassium chloride 40 mEq/15 mL 15 meq (5.625 mL) PO BID 7 days 01/19/24 oral liquid #78.75 mL prednisone 50 mg tablet 50 mg PO DAILY #5 tabs 01/19/24 benzonatate 200 mg capsule 200 mg PO TID PRN cough #30 caps 01/21/24 doxycycline hyclate 100 mg capsule 100 mg PO BID 7 days #14 caps 01/21/24 hydrocodone 5 mg-acetaminophen 325 1 tab PO Q8H PRN pain #14 tabs 01/21/24 mg tablet polyethylene glycol 3350 17 17 g PO DAILY #510 grams 01/21/24 gram/dose oral powder (Miralax) Allergies Allergy/AdvReac Type Severity Reaction Status Date / Time No Known Allergies Allergy Verified 01/21/24 11:10 Review of Systems 2 Narrative: Constitutional symptoms: Negative except as documented in HPI. Skin symptoms: Negative except as documented in HPI. Eye symptoms: Negative except as documented in HPI. ENMT symptoms: Negative except as documented in HPI. Respiratory symptoms: Negative except as documented in HPI. Cardiovascular symptoms: Negative except as documented in HPI. Gastrointestinal symptoms: Negative except as documented in HPI. Genitourinary symptoms: Negative except as documented in HPI. Musculoskeletal symptoms: Negative except as documented in HPI. Neurologic symptoms: Negative except as documented in HPI. Psychiatric symptoms: Negative except as documented in HPI. Endocrine symptoms: Negative except as documented in HPI. PFSH ED 2 PFSH: Medical History Chronic systolic CHF (congestive heart failure) 08/19/22: LVEF 15% Atrial fibrillation intermittent CAD (coronary artery disease) BPH loc w urin obs/LUTS Chronic decreased force of stream without RUTIs gross hematuria (previously prior to catheterization placement) or retention. 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, initial treatment with imiquimod, follows with Dr Gil Chronic alcohol use History of smoking Nicotine dependence, chewing tobacco, with other nicotine-induced disorders COPD (chronic obstructive pulmonary disease) Compression fx, lumbar spine 07/2022 L1, L3, L4 Lumbar disc disease with radiculopathy Amputated toe of left foot discharged from wound care 07/05/22, follows with Dr Brunner PAC (premature atrial contraction) Chronic hyponatremia Severe peripheral arterial disease Malignant neoplasm of glottis Claudication HTN (hypertension) History of nonmelanoma skin cancer Surgical History Status post kyphoplasty (08/06/22) L1, L3, L4 S/P right coronary artery (RCA) stent placement (08/30/22) S/P peripheral artery angioplasty with stent placement 12/2021 Left common/External Iliac Artery with 80% stenosis treated with AB ARMADA [id number]. 8.0 x 19 mm Omnilink stent was placed. Left Proximal Superficial Femoral Artery with 80-90 % stenosis treated with AB ARMADA 35 [id number]. 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 Skin: Warm, dry. Head: Normocephalic, atraumatic. Neck: Supple, trachea midline. Eye: Extraocular movements are intact. Ears, nose, mouth and throat: mucosa moist. Cardiovascular: Regular, Normal peripheral perfusion. Respiratory: Lungs are clear to auscultation, respirations are non-labored, breath sounds are equal, Symmetrical chest wall expansion. Gastrointestinal: Soft, Nontender, Non distended Musculoskeletal: Normal ROM, no deformity. Neurological: Alert and oriented, No focal neurological deficit observed. Psychiatric: Cooperative, appropriate mood & affect. Course 2 Vital Signs: Vital signs: Vital Signs Temperature 97.4 F L 01/21/24 11:07 Pulse Rate 75 01/21/24 14:11 Respiratory Rate 16 01/21/24 14:11 Blood Pressure 110/61 01/21/24 11:07 Pulse Oximetry 95 01/21/24 14:11 Oxygen Delivery Me thod Room Air 01/21/24 14:11 MDM - SOB/Dyspnea Medical Decision Making Differential diagnosis for patient with shortness of breath includes but is not limited to and based on the above HPI, review of systems and physical exam: Pneumonia. Bronchitis. Asthma or COPD with acute exacerbation. Acute coronary syndrome / OK. Pulmonary embolism. Anxiety. Congestive heart failure. Viral infections including influenza and Covid-19. Atrial fibrillation. Anxiety. Pleural effusion. Pneumothorax. Workup: Lab work, chest X-ray and EKG ordered to evaluate, rule in and rule out above pathologies Lab Review: Laboratory results were reviewed and interpreted by myself the emergency room physician. Lab work is unremarkable. No leukocytosis. No renal failure. He has stable hyponatremia which is actually little higher than usual at 126. Chest x-ray: No acute process. No infiltrate. No pneumothorax. This was reviewed and interpreted by myself the ER physician. I reviewed the patient's medical record. Reexamination: Patient remained stable. No increased work of breathing. No altered mental status. No focal motor deficits. Patient is basically demanding to be admitted. He is not requiring oxygen. He does not have a pneumonia. He wants to be admitted for pain control for his pleuritic chest pain. Told him to give him some hydrocodone some here and have called some and and that would be about as much as he can get. He does not qualify for admission and I feel like admission would not be appropriate for him would be a bigger risk than going home. Assessment and plan: Bronchitis Noncardiac chest pain -IV Decadron, PO [place] - Discharged home - Discussed findings and plan with patient. Answered any questions. - All laboratory values were reviewed and interpreted personally by myself, the ER physician - All imaging was reviewed and interpreted personally by myself, the ER physician. - Evaluation and treatment of this problem were appropriate in the emergency setting Lab Data 01/21/24 11:41 01/21/24 11:41 Labs/Radiology: Radiology Impressions Chest X-Ray 01/21/24 11:21 IMPRESSION: Trace bibasilar atelectasis or scar. Laboratory Results WBC 10.54 10^3/uL (3.29-11.43) 01/21/24 11:41 RBC 3.98 10^6/uL (3.85-5.65) 01/21/24 11:41 Hgb 13.10 g/dL (11.27-16.99) 01/21/24 11:41 Hct 38.6 % (37-53) 01/21/24 11:41 MCV 97.0 fl (82-101) 01/21/24 11:41 MCH 32.9 pg (27-33) 01/21/24 11:41 MCHC 33.9 g/dL (30-55) 01/21/24 11:41 RDW 15.6 % (12.1-15.1) H 01/21/24 11:41 Plt Count 315 10^3/cmm (157-399) 01/21/24 11:41 MPV 8.9 fL (7.4-10.4) 01/21/24 11:41 Neut % (Auto) 70.5 % 01/21/24 11:41 Lymph % (Auto) 17.5 % 01/21/24 11:41 [place] % (Auto) 9.9 % 01/21/24 11:41 Eos % (Auto) 0.2 % 01/21/24 11:41 Baso % (Auto) 0.3 % 01/21/24 11:41 Neut # (Auto) 7.44 10^3/uL (1.8-7.7) 01/21/24 11:41 Lymph # (Auto) 1.8 10^3/uL (0.8-4.8) 01/21/24 11:41 [place] # (Auto) 1.0 10^3/uL (0.2-0.9) H 01/21/24 11:41 Eos # (Auto) 0.0 10^3/uL (0.0-0.8) 01/21/24 11:41 Baso # (Auto) 0.0 10^3/uL (0.0-0.1) 01/21/24 11:41 Nucleated RBC % (auto) 0 % 01/21/24 11:41 Nucleated RBCs # 0.0 /100WBC 01/21/24 11:41 Sodium 126 mmol/L (136-145) L 01/21/24 11:41 Potassium 3.0 mmol/L (3.5-5.1) L 01/21/24 11:41 Chloride 86 mmol/L (98-107) L 01/21/24 11:41 Carbon Dioxide 25 mmol/L (22-29) 01/21/24 11:41 Anion Gap 18.0 (5-19) 01/21/24 11:41 BUN 18 mg/dL (8-23) 01/21/24 11:41 Creatinine 1.0 mg/dL (0.7-1.2) 01/21/24 11:41 GFR Calculation Not Reportable 01/21/24 11:41 Glucose 107 mg/dL (65-115) 01/21/24 11:41 Calculated Osmolality 264 mOsm/kg (285-295) L 01/21/24 11:41 Lactic Acid 3.1 mmol/L (0.5-2.2) H 01/21/24 11:41 Lactic Acid (Sepsis) 1.8 mmol/L (0.5-2.2) 01/21/24 14:07 Calcium 8.9 mg/dL (8.5-10.5) 01/21/24 11:41 Total Bilirubin 0.8 mg/dL (0.15-1.2) 01/21/24 11:41 AST 35 U/L (0-40) 01/21/24 11:41 ALT 29 U/L (0-41) 01/21/24 11:41 Alkaline Phosphatase 146 U/L (40-130) H 01/21/24 11:41 Troponin T Baseline 44 ng/L (0-15) H 01/21/24 11:41 Troponin T 120 Minute 42.37 ng/L (0-15) H 01/21/24 14:07 Delta Troponin T -1.63 ABS# (0-10) L 01/21/24 14:07 C-Reactive Protein 6.8 mg/L (0.0-4.9) H 01/21/24 11:41 NT-Pro-B Natriuret Pep 562 pg/mL (0-450) H 01/21/24 11:41 Total Protein 6.6 g/dL (6.6-8.7) 01/21/24 11:41 Albumin 4.2 g/dL (3.5-5.2) 01/21/24 11:41 Globulin 2.4 g/dL (1.3-4.6) 01/21/24 11:41 Procalcitonin 0.14 ng/mL (0-0.5) 01/21/24 11:41 All radiology interpretation(s) finalized by discharge Discharge Plan Discharge Patient Disposition: Home Clinical Impression: Bronchitis, Non-cardiac chest pain, Cough Condition: Stable Prescriptions: New benzonatate 200 mg capsule 200 mg PO TID PRN (Reason: cough) Qty: 30 0RF doxycycline hyclate 100 mg capsule 100 mg PO BID 7 Days Qty: 14 0RF hydrocodone-acetaminophen 5-325 mg tablet 1 tab PO Q8H PRN (Reason: pain) Qty: 14 0RF Rx Instructions: Take 1/2 to 1 tab every 8 hours as needed for pain Miralax 17 gram/dose powder 17 g PO DAILY Qty: 510 0RF Rx Instructions: Take 1 scoop daily while taking pain medications. No Action metolazone 2.5 mg tablet 2.5 mg PO DAILY Qty: 90 3RF furosemide 40 mg tablet See Rx Instructions .ROUTE .COMPLEX Qty: 180 2RF Dose Instruction: Take 1 tablet by mouth twice daily Rx Instructions: Take 1 tablet by mouth twice daily potassium chloride 20 mEq tablet extended release See Rx Instructions .ROUTE .COMPLEX Qty: 180 2RF Dose Instruction: TAKE 1 TABLET BY MOUTH TWICE DAILY; HOLD IF YOU DO NOT TAKE LASIX Rx Instructions: TAKE 1 TABLET BY MOUTH TWICE DAILY; HOLD IF YOU DO NOT TAKE LASIX multivitamin Tablet 1 tab PO DAILY acetaminophen [Tylenol] 325 mg Tablet 650 mg PO Q6H PRN (Reason: Pain/fever) magnesium oxide 400 mg magnesium Tablet 400 mg PO DAILY amiodarone [Pacerone] 200 mg Tablet 200 mg PO DAILY Qty: 30 0RF tamsulosin 0.4 mg Capsule 0.4 mg PO QPM Qty: 30 0RF clopidogrel 75 mg Tablet 75 mg PO DAILY Qty: 30 0RF atorvastatin 80 mg tablet 40 mg PO QPM albuterol sulfate 90 mcg/actuation HFA aerosol inhaler 2 inh INHALATION Q6H PRN (Reason: shortness of breath or wheezing) Qty: 8 0RF benzonatate 100 mg capsule 100 mg PO Q6H PRN (Reason: cough) Qty: 40 0RF albuterol sulfate 90 mcg/actuation HFA aerosol inhaler 2 inh inhalation Q8H PRN (Reason: shortness of breath or wheezing) Qty: 8.5 1RF prednisone 50 mg tablet 50 mg PO DAILY Qty: 5 0RF potassium chloride 40 mEq/15 mL liquid 15 meq PO BID 7 Days Qty: 78.75 0RF guaifenesin 1,200 mg tablet extended release 12hr 1,200 mg PO BID Qty: 30 0RF folic acid 1 mg Tablet 1 mg PO DAILY ferrous gluconate 324 mg (37.5 mg iron) tablet 324 mg PO QAM albuterol sulfate [ProAir HFA] 90 mcg/actuation Hfa Aerosol Inhaler 2 puff INHALATION Q6H PRN (Reason: Shortness Of Breath) Discharge Orders: Discharge ED (Routine); Ordered 01/21/24 Ordered By: Lucila Dutton Referrals: Sachin Gallagher, DO [Primary Care Provider] - Discharge Diet: Usual diet Discharge Activity: Resume usual activity Patient Instructions: Acute Bronchitis (ED), Opioid Safety Activity Restrictions/Additional Instructions: Please be very careful when taking the prescribed pain medications. These can make you dizzy and off balance. Please be sure to take stool softener/MiraLAX while taking these pain medications to avoid constipation. Thank you for choosing [facility] for your healthcare needs today. Please realize this is an emergency room and that we are providing you with a medical screening exam and this may not be complete and all inclusive of all the testing and or work up that you may need to determine your ailment or severity of your illness. You have been screened and evaluated and felt safe for discharge. Health conditions do change or evolve sometimes and as such it is important that you follow up with your Primary Doctor to be re checked, 3-5 days is a general good time frame for follow up. 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
[2024-01-21 14:30] VITALS: BP 127/83; PULSE 63; RESP 19; O2SAT 95
[2024-01-21 14:30] LABS: Troponin 5 2HR 42.37 ng/L (0-15)
[2024-01-21 14:32] LABS: Lactic Acid level (Lactate) 1.8 mmol/L (0.5-2.2)
[2024-01-21 14:33] LABS: Troponin 5 2HR Delta -1.63 ABS# (0-10)
[2024-01-21 15:00] VITALS: BP 128/71; PULSE 69; RESP 17; O2SAT 97
[2024-01-21 15:11] VITALS: BP 121/68; PULSE 65; RESP 20; O2SAT 94
== END 2024-01-21 15:17 | disposition home or self-care (01) ==
PROVIDERS: Emergency Provider Emergency Medicine; PCP Emergency Medicine Emergency Medical Services
DX: J44.89 Other specified chronic obstructive pulmonary disease (principal); R07.89 Other chest pain; R05.9 Cough, unspecified; Z79.02 Long term (current) use of antithrombotics/antiplatelets; I48.91 Unspecified atrial fibrillation; Z87.891 Personal history of nicotine dependence; I11.0 Hypertensive heart disease with heart failure; I50.22 Chronic systolic (congestive) heart failure; I25.10 Atherosclerotic heart disease of native coronary artery without angina pectoris; Z85.21 Personal history of malignant neoplasm of larynx
CPT/HCPCS: 36415; 71045; 80053; 83605; 83880; 84145; 84484; 85025; 86140; 93005; 94640; 96374; 99285; J1100; J7613

== ENCOUNTER → 2024-02-02 09:41 | Outpatient (BNVA) | payer OTHER, SELFPAY | PROVIDERS: PCP Emergency Medicine Emergency Medical Services; Visit Provider Nurse Practitioner Family | DX: S80.922A Unspecified superficial injury of left lower leg, initial encounter (principal); X58.XXXA Exposure to other specified factors, initial encounter; L81.4 Other melanin hyperpigmentation; L57.0 Actinic keratosis; L57.8 Other skin changes due to chronic exposure to nonionizing radiation; B07.8 Other viral warts; Z85.828 Personal history of other malignant neoplasm of skin | CPT/HCPCS: 17000; 17110; 99214 ==

== ENCOUNTER → 2024-02-07 14:21 | Outpatient (BNVA) | payer OTHER, SELFPAY | PROVIDERS: PCP Emergency Medicine Emergency Medical Services; Visit Provider Orthopaedic Surgery | DX: M54.50 Low back pain, unspecified (principal); M54.9 Dorsalgia, unspecified | CPT/HCPCS: 72110; 99214 ==

== ENCOUNTER 2024-02-21 14:09 | Outpatient (CLI) | payer OTHER, SELFPAY ==
--- NOTE | 2024-02-21 14:30 | MR_ITS ---
WS: [id number] MRI LUMBAR SPINE NONCONTRAST HISTORY: Back Pain COMPARISON: MRI 07/27/2022 TECHNIQUE: Sagittal and axial multisequence imaging is submitted. Mild volume loss in the brain with mild tracheomegaly. C3-4 Central disc protrusion with mild cervical stenosis. New compression fractures at T4, T5 and T6. There is edema within the T5 and T6 compression fractures . There is also cord edema with enlargement at the T5 and T6 levels consistent with a significant cor d injury. Straightening of the normal lumbar lordosis. No acute marrow edema noted in the lumbar vertebral bodi es. Prior vertebroplasties at L1, L3 and L4. No change in alignment since the prior study. Fracture i s estimated approximately 30 to 40% loss of height. Disc spaces are narrowed and desiccated. Conus terminates normally at L1-2 disc level. L1-L2: Mild disc bulging with moderate central stenosis. Facet joint arthropathy. Annular disc bulgin g with mild bilateral foraminal stenosis. L2-L3: Diffuse annular disc bulging with osteophytic ridging. Marked ligamentum flavum and facet join t arthritis. Severe central stenosis with moderate bilateral foraminal stenosis. L3-L4: Marked annular disc bulging with osteophytic ridging, ligamentum flavum and facet arthritis. M oderate central with bilateral foraminal stenosis. L4-L5: Marked annular disc bulging with osteophytic ridging. Ligamentum flavum and facet arthritis. D isc protrusions and facet disease contributing to severe central and bilateral foraminal stenosis. Si gnificant impingement upon the traversing L5 nerve roots. L5-S1: Mild disc bulging. No stenosis. T11-12 disc space narrowing with partial fusion. MR/MR lumbar spine wo con* [id number] IMPRESSION: 1. New since 07/27/2022 are moderate anterior compression fractures at T4, T5 a nd T6. Vertebral body edema is present in T5 and T6. 2. Enlargement and edema within the thoracic cord centered at T5 and T6 consis tent with a significant cord injury/contusion. Consider dedicated thoracic MRI evaluation. 3. Prior vertebroplasties at L1, L3 and L4. 4. 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 Minimal progression or change since the prior MRI of 07/27/2022 of the stenoses. Notified Kirt May DO at 02/21/2024 3:55 PM. Message left as a cell phone me arguello.
== END 2024-02-21 14:10 | disposition home or self-care (01) ==
LOC: RAD 14:09
PROVIDERS: PCP Emergency Medicine Emergency Medical Services; Visit Provider Orthopaedic Surgery
DX: S22.040A Wedge compression fracture of fourth thoracic vertebra, initial encounter for closed fracture (principal); S22.050A Wedge compression fracture of T5-T6 vertebra, initial encounter for closed fracture; S24.0XXA Concussion and edema of thoracic spinal cord, initial encounter; S14.109A Unspecified injury at unspecified level of cervical spinal cord, initial encounter; M47.896 Other spondylosis, lumbar region; M51.36 Other intervertebral disc degeneration, lumbar region; M51.26 Other intervertebral disc displacement, lumbar region; X58.XXXA Exposure to other specified factors, initial encounter
CPT/HCPCS: 72148

== ENCOUNTER 2024-02-24 14:06 | Outpatient (CLI) | payer OTHER, SELFPAY ==
--- NOTE | 2024-02-24 14:30 | MR_ITS ---
WS: [id number] MRI THORACIC SPINE noncontrast HISTORY: M54.6 - Pain in thoracic spine COMPARISON: MRI lumbar spine 02/21/2024 TECHNIQUE: Multiplanar sequences are performed in sagittal and axial planes. New vertebral body numbering pattern. Using the L1 vertebral body which has undergone a prior vertebr oplasty the numbering of the thoracic vertebral bodies is different than previously described on the recent lumbar MRI. The new thoracic vertebral body fractures with marrow edema are at T3, T4 and T5. Mild increase in thoracic kyphosis. Acute marrow edema is noted within a large portion of the T4 and T5 vertebral bodies with extension into the posterior elements and articular facets. There is a small er amount of edema within the T3 vertebral body with no definite extension to the posterior elements. Small amount of marrow edema in the T6 superior articular facets. There is a small amount of fluid i n the paravertebral and intraspinous soft tissues. No significant widening or subluxation noted of th e facet joints. There is also a small amount of edema in the prevertebral location. Increased T1 and T2 signal signal in the central cord. There 2 separate areas of increased T1 signal. 1 is posterior to T4 and the other is posterior to T5 consistent with cord contusion with hemorrhage . MR/MR thoracic spin wo con* [id number] IMPRESSION: 1. Abnormal signal in the thoracic cord centered at T4 and T5 consistent with hemorrhagic contusions. 2. Acute marrow edema in T3, T4, T5 and T6. Most significant involvement is at T4 and T5. Marrow edema involves the posterior elements and spinous processes. 3. Edema involves the spinous processes and the intraspinous ligaments from fr om T3-T6. 4. Prevertebral edema and paravertebral edema. 5. No facet joint subluxation or widening noted by MRI. Notified Kirt May DO at 02/24/2024 3:41 PM.
== END 2024-02-24 14:07 ==
LOC: RAD 14:07
PROVIDERS: PCP Emergency Medicine Emergency Medical Services; Visit Provider Orthopaedic Surgery
DX: M70.61 Trochanteric bursitis, right hip (principal); Z71.89 Other specified counseling
CPT/HCPCS: 20610; 72146; J1100; J2795; J3301

== ENCOUNTER → 2024-03-08 07:56 | Outpatient (BNVA) | payer OTHER, SELFPAY | PROVIDERS: PCP Emergency Medicine Emergency Medical Services; Visit Provider Orthopaedic Surgery | DX: Z09 Encounter for follow-up examination after completed treatment for conditions other than malignant neoplasm (principal) | CPT/HCPCS: 99213 ==

== ENCOUNTER → 2024-03-14 10:22 | Outpatient (BNVA) | payer OTHER, SELFPAY | PROVIDERS: PCP Emergency Medicine Emergency Medical Services; Visit Provider Nurse Practitioner Family | DX: B07.8 Other viral warts (principal); L57.0 Actinic keratosis; S80.922A Unspecified superficial injury of left lower leg, initial encounter; X58.XXXA Exposure to other specified factors, initial encounter; R23.3 Spontaneous ecchymoses; Z85.828 Personal history of other malignant neoplasm of skin | CPT/HCPCS: 99214 ==

== ENCOUNTER → 2024-03-20 15:45 | Outpatient (BNVA) | payer OTHER, SELFPAY | PROVIDERS: PCP Emergency Medicine Emergency Medical Services; Visit Provider Podiatrist Foot & Ankle Surgery | DX: M72.2 Plantar fascial fibromatosis (principal) | CPT/HCPCS: 20550; J1100; J3301 ==

== ENCOUNTER → 2024-04-10 09:47 | Outpatient (BNVA) | payer OTHER, SELFPAY | PROVIDERS: PCP Emergency Medicine Emergency Medical Services; Visit Provider Podiatrist Foot & Ankle Surgery | DX: M72.2 Plantar fascial fibromatosis; M79.672 Pain in left foot | CPT/HCPCS: 99213 ==

== ENCOUNTER → 2024-04-19 08:05 | Outpatient (BNVA) | payer OTHER, SELFPAY | PROVIDERS: PCP Emergency Medicine Emergency Medical Services; Visit Provider Orthopaedic Surgery | DX: M54.9 Dorsalgia, unspecified (principal) | CPT/HCPCS: 72072; 99213 ==

== ENCOUNTER 2024-05-05 09:11 | Inpatient (IN) | payer OTHER, MEDICARE, SELFPAY ==
[2024-05-05] VITALS (9 sets, daily range): BP systolic 106–129; BP diastolic 51–74; PULSE 70–95; RESP 17–25; TEMP 36.4–36.7; O2SAT 93–97; BMI 25.1; BMI 24.5
--- NOTE | 2024-05-05 09:29 | PC.PHAR ---
patient is [facility] sent fax at [phone]
--- NOTE | 2024-05-05 09:36 | CTR_ITS ---
PROCEDURE INFORMATION: Exam: CT Abdomen And Pelvis With Contrast Exam date and time: 05/05/2024 10:45 AM Age: 83 years old Clinical indication: Abdominal pain; Flank; Left; Additional info: Abd pain TECHNIQUE: Imaging protocol: Computed tomography of the abdomen and pelvis with contrast. Radiation optimization: All CT scans at this facility use at least one of these dose optimization techniques: automated exposure control; mA and/or kV adjustment per patient size (includes targeted exams where dose is matched to clinical indication); or iterative reconstruction. Contrast material: OMNI 350; Contrast volume: 100 ml; Contrast route: INTRAVENOUS (IV); COMPARISON: CT abdomen pelvis wo con [id number] 08/26/2022 9:00 AM RADIATION DOSE METRICS: Total DLP (mGy-cm): 686.07 FINDINGS: Lungs: There is minimal atelectasis at the lung bases. Liver: There is diffuse fatty infiltration of the liver. The liver is otherwise normal. Gallbladder and biliary ducts: There are gallstones within the gallbladder. No pericholecystic inflammatory changes noted. Pancreas: Normal. No ductal dilation. Spleen: Normal. No splenomegaly. Adrenal glands: Normal. No mass. Kidneys and ureters: There is cortical scarring involving both kidneys. There are vascular calcifications and/or renal calculi bilaterally. No hydronephrosis is noted. No ureteral calculi are identified. Stomach and bowel: Unremarkable. No obstruction. No mucosal thickening. Appendix: No evidence of appendicitis. Intraperitoneal space: Unremarkable. No free air. No significant fluid collection. Vasculature: The aorta is normal in caliber. There is calcified plaque involving the aorta and its branch vessels. Lymph nodes: Unremarkable. No enlarged lymph nodes. Urinary bladder: Unremarkable as visualized. Reproductive: Unremarkable as visualized. Bones/joints: There are treated compression deformities at L1, L3 and L4. No acute appearing fractures are noted. Bones are diffusely demineralized. Soft tissues: Unremarkable. CT/CT abdomen pelvis w con* [id number] IMPRESSION: 1. Cholelithiasis. 2. Cortical scarring involving both kidneys. There are vascular calcifications and possibly bilateral renal calculi. No hydronephrosis is noted. No ureteral calculi are identified.
[2024-05-05 09:47] LABS: Basophils # 0.1 10^3/uL (0.0-0.1); Basophils % 0.7 %; Eosinophils % 0.3 %; Hematocrit 27.9 % (37-53); Lymphocytes # 1.1 10^3/uL (0.8-4.8); Lymphocytes % 14.6 %; Mean Corpuscular Hemoglobin 34.3 pg (27-33); Mean Corpuscular Volume 104.1 fl (82-101); Mean Platelet Volume 9.6 fL (7.4-10.4); Monocytes # 1.1 10^3/uL (0.2-0.9); Monocytes % 14.1 %; Neutrophils # 5.28 10^3/uL (1.8-7.7); Neutrophils % 69.5 %; Nucleated Red Blood Cells % 0.3 %; Platelet Count 241 10^3/cmm (157-399); Red Blood Count 2.68 10^6/uL (3.85-5.65); Red Cell Distribution Width 14.5 % (12.1-15.1); White Blood Count 7.59 10^3/uL (3.29-11.43)
--- NOTE | 2024-05-05 09:54 | ED_ITS ---
HPI - GI Bleed 2 General: Chief complaint: GI Bleed Stated complaint: blood in stool Time Seen by Provider: 05/05/24 09:31 History of Present Illness: 83-year-old male presents emergency room for quadrant pain rectal bleeding dark stools last several days. Patient notes combination of melanic and some redness in the stool. This is new for him he has some mild left lower quadrant pain. This began yesterday. He is on clopidogrel but no other anticoagulants he recently had evaluation for a lumbar vertebral fracture Dr. Gao is monitoring there allowing to heal in place without intervention. Associated symptoms: Reports abdominal pain and nausea; Denies chills, fever(s), rash or vomiting Related Data Home Medications Medication Instructions Recorded Confirmed folic acid 1 mg tablet 1 mg PO DAILY 08/03/22 05/05/24 acetaminophen 325 mg tablet 650 mg PO Q6H PRN Pain/fever 08/19/22 05/05/24 (Tylenol) atorvastatin 80 mg tablet 40 mg PO QPM 12/05/23 05/05/24 furosemide 40 mg tablet 40 mg PO BID 05/05/24 05/05/24 Previous Rx's Medication Instructions Recorded amiodarone 200 mg tablet (Pacerone) 200 mg PO DAILY #30 tabs 09/02/22 tamsulosin 0.4 mg capsule 0.4 mg PO QPM #30 caps 09/02/22 clopidogrel 75 mg tablet 75 mg PO DAILY #30 tabs 09/04/22 metolazone 2.5 mg tablet 2.5 mg PO DAILY #90 tabs 10/26/22 albuterol sulfate 90 mcg/actuation 2 inh inhalation Q6H PRN shortness 12/05/23 aerosol inhaler of breath or wheezing #8 grams potassium chloride 20 mEq See Rx Instructions .Route 01/03/24 tablet,extended release .COMPLEX #180 tabs [id number] orthopedic shoes #1 ea 04/10/24 Allergies Allergy/AdvReac Type Severity Reaction Status Date / Time No Known Allergies Allergy Verified 04/10/24 09:59 Review of Systems 2 Const: Denies: fever(s) or chills Card: Denies: chest pain Resp: Denies: dyspnea GI: Reports: abdominal pain, nausea, hematochezia and melena; Denies: vomiting, hematemesis or coffee ground emesis : Denies: dysuria, urinary frequency or urinary urgency Musc: Denies: neck pain or back pain Skin/Breast: Denies: rash PFSH ED 2 PFSH: Medical History Chronic systolic CHF (congestive heart failure) 08/19/22: LVEF 15% Atrial fibrillation intermittent CAD (coronary artery disease) BPH loc w urin obs/LUTS Chronic decreased force of stream without RUTIs gross hematuria (previously prior to catheterization placement) or retention. 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, initial treatment with imiquimod, follows with Dr Gil Chronic alcohol use History of smoking Nicotine dependence, chewing tobacco, with other nicotine-induced disorders COPD (chronic obstructive pulmonary disease) Compression fx, lumbar spine 07/2022 L1, L3, L4 Lumbar disc disease with radiculopathy Amputated toe of left foot discharged from wound care 07/05/22, follows with Dr Brunner PAC (premature atrial contraction) Chronic hyponatremia Severe peripheral arterial disease Malignant neoplasm of glottis Claudication HTN (hypertension) History of nonmelanoma skin cancer Surgical History Status post kyphoplasty (08/06/22) L1, L3, L4 S/P right coronary artery (RCA) stent placement (08/30/22) S/P peripheral artery angioplasty with stent placement 12/2021 Left common/External Iliac Artery with 80% stenosis treated with AB ARMADA [id number]. 8.0 x 19 mm Omnilink stent was placed. Left Proximal Superficial Femoral Artery with 80-90 % stenosis treated with AB ARMADA 35 [id number] [id number]. 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 History of hip surgery right hip fracture repair Family History Other No pertinent family history Social History Smoking and tobacco/nicotine status: never used tobacco/nicotine Alcohol intake: current Alcohol type: hard liquor Substance/Drug Use: current Substance/Drug use frequency: Special occassions/opportunity only Lives independently: Yes Household members: none Housing: House Physical Exam 2 Const: COMMON NORMALS: no acute distress GENERAL APPEARANCE: cooperative and comfortable ORIENTATION/CONSCIOUSNESS: Yes awake, Yes oriented to person, Yes oriented to place and Yes oriented to time HENMT: COMMON NORMALS: normocephalic, atraumatic and hearing grossly normal bilaterally HEAD & SCALP: normocephalic and atraumatic Resp: COMMON NORMALS: normal respiratory effort, No retractions, No use of accessory muscles and clear to auscultation bilaterally AUSCULTATION: clear to auscultation bilaterally Cardio: COMMON NORMALS: regular rate, regular rhythm and No murmurs present (Cardio) RATE: regular rate RHYTHM: regular rhythm GI: COMMON NORMALS: No hepatosplenomegaly present AUSCULTATION: Yes normoactive bowel sounds PALPATION: Yes Tenderness to palpation present (GI), No Guarding due to palpation present (GI) and Yes No hepatosplenomegaly present OTHER: Rectal exam done no masses prostate firm some maroonish dark stool noted Hemoccult sharply positive Extremity: COMMON NORMALS: normal to inspection, capillary refill normal, no clubbing, cyanosis or edema, no calf tenderness and no pedal edema Neuro: SENSORIUM/ORIENTATION: Yes oriented to person, Yes oriented to place and Yes oriented to time Skin: COMMON NORMALS: no rashes or lesions noted GENERAL SKIN EXAM: no rashes or lesions noted Course 2 Vital Signs: Vital signs: Vital Signs Temperature 97.5 F L 05/05/24 15:49 Pulse Rate 74 05/05/24 15:49 Respiratory Rate 18 05/05/24 15:49 Blood Pressure 129/70 05/05/24 15:49 Pulse Oximetry 94 05/05/24 15:49 Oxygen Delivery Me thod Room Air 05/05/24 15:49 MDM - GI Bleed Medical Decision Making Upper GI bleed. Patient given Protonix and kept n.p.o. will admit he has not been having any hematemesis. Discussed with hospitalist. Orders written for admission. Hemoglobin down to 9.2, December of this year it was 13.1. Medical Records I reviewed the patient's medical records. Lab Data I reviewed the patient's lab results. 05/05/24 09:37 05/05/24 09:37 Radiology Impressions Abdomen/Pelvis CT 05/05/24 09:36 IMPRESSION: 1. Cholelithiasis. 2. Cortical scarring involving both kidneys. There are vascular calcifications and possibly bilateral renal calculi. No hydronephrosis is noted. No ureteral calculi are identified. Laboratory Results WBC 7.59 10^3/uL (3.29-11.43) 05/05/24 09:37 RBC 2.68 10^6/uL (3.85-5.65) L 05/05/24 09:37 Hgb 9.20 g/dL (11.27-16.99) L 05/05/24 09:37 Hct 27.9 % (37-53) L 05/05/24 09:37 MCV 104.1 fl (82-101) H 05/05/24 09:37 MCH 34.3 pg (27-33) H 05/05/24 09:37 MCHC 33.0 g/dL (30-55) 05/05/24 09:37 RDW 14.5 % (12.1-15.1) 05/05/24 09:37 Plt Count 241 10^3/cmm (157-399) 05/05/24 09:37 MPV 9.6 fL (7.4-10.4) 05/05/24 09:37 Neut % (Auto) 69.5 % 05/05/24 09:37 Lymph % (Auto) 14.6 % 05/05/24 09:37 [place] % (Auto) 14.1 % 05/05/24 09:37 Eos % (Auto) 0.3 % 05/05/24 09:37 Baso % (Auto) 0.7 % 05/05/24 09:37 Neut # (Auto) 5.28 10^3/uL (1.8-7.7) 05/05/24 09:37 Lymph # (Auto) 1.1 10^3/uL (0.8-4.8) 05/05/24 09:37 [place] # (Auto) 1.1 10^3/uL (0.2-0.9) H 05/05/24 09:37 Eos # (Auto) 0.0 10^3/uL (0.0-0.8) 05/05/24 09:37 Baso # (Auto) 0.1 10^3/uL (0.0-0.1) 05/05/24 09:37 Nucleated RBC % (auto) 0.3 % 05/05/24 09:37 Nucleated RBCs # 0.0 /100WBC 05/05/24 09:37 PT 13.40 SECONDS (12.1-14.9) 05/05/24 09:37 INR 0.99 (0.8-1.2) 05/05/24 09:37 Sodium 131 mmol/L (136-145) L 05/05/24 09:37 Potassium 4.0 mmol/L (3.5-5.1) 05/05/24 09:37 Chloride 98 mmol/L (98-107) 05/05/24 09:37 Carbon Dioxide 22 mmol/L (22-29) 05/05/24 09:37 Anion Gap 15.0 (5-19) 05/05/24 09:37 BUN 22 mg/dL (8-23) 05/05/24 09:37 Creatinine 1.5 mg/dL (0.7-1.2) H 05/05/24 09:37 GFR Calculation Not Reportable 05/05/24 09:37 Glucose 116 mg/dL (65-115) H 05/05/24 09:37 Calculated Osmolality 276 mOsm/kg (285-295) L 05/05/24 09:37 Calcium 9.1 mg/dL (8.5-10.5) 05/05/24 09:37 Total Bilirubin 0.8 mg/dL (0.15-1.2) 05/05/24 09:37 AST 31 U/L (0-40) 05/05/24 09:37 ALT 23 U/L (0-41) 05/05/24 09:37 Alkaline Phosphatase 89 U/L (40-130) 05/05/24 09:37 Total Protein 5.9 g/dL (6.6-8.7) L 05/05/24 09:37 Albumin 3.8 g/dL (3.5-5.2) 05/05/24 09:37 Globulin 2.1 g/dL (1.3-4.6) 05/05/24 09:37 Blood Type O Positive 05/05/24 09:37 Rho(D) Type Rh positive 05/05/24 09:37 Antibody Screen Negative 05/05/24 09:37 All radiology interpretation(s) finalized by discharge Discharge Plan Discharge Patient Disposition: Admitted As Inpatient Admit Provider: Gena Esposito Clinical Impression: Acute GI bleeding Condition: Stable Coding Level of Care Code ED Rivet Thrower for Jorge Betancourt
[2024-05-05 10:00] LABS: INR 0.99 (0.8-1.2)
[2024-05-05] MEDS: pantoprazole 40 mg SDV 80 MG IVP (10:07)
[2024-05-05 10:09] LABS: Alanine Aminotransferase 23 U/L (0-41); Albumin Level 3.8 g/dL (3.5-5.2); Alkaline Phosphatase 89 U/L (40-130); Aspartate Amino Transferase 31 U/L (0-40); Blood Urea Nitrogen 22 mg/dL (8-23); Calcium 9.1 mg/dL (8.5-10.5); Carbon Dioxide 22 mmol/L (22-29); Chloride 98 mmol/L (98-107); Creatinine Clr Calc Pharmacy 40.0241; Globulin 2.1 g/dL (1.3-4.6); Glucose 116 mg/dL (65-115); Osmolality Calculated 276 mOsm/kg (285-295); Sodium 131 mmol/L (136-145); Total Bilirubin 0.8 mg/dL (0.15-1.2); Total Protein 5.9 g/dL (6.6-8.7)
[2024-05-05] MEDS: iohexol 350 mg/mL 500 mL Btl (per mL) IV (10:47)
[2024-05-05] MEDS: morphine 4 mg/mL SDV 1 mL 2 MG IVP (13:46)
--- NOTE | 2024-05-05 15:13 | P.HP_ITS ---
Providers/Chief Complaint 2 Admitting Physician: Gena Esposito MD Primary Care Provider: Sachin Gallagher DO Chief Complaint: blood in stool History of Present Illness Reginald Pelaez is a 83 year old male with past medical history of CHF EF 15%, atrial fibrillation, coronary disease, spinal stenosis, GERD, chronic alcohol use, smoking, COPD, chronic hyponatremia, severe peripheral arterial disease, hypertension presented to the hospital today after noticing dark stools. He states he lives in a skilled nursing and has been having black and red stools since yesterday. He also complained of mild left lower quadrant pain. This started yesterday. Patient has been chronically on Plavix. He would like to be a full code. Denies a history of hemorrhoids. Denies a fever at home. Hemoglobin in March 11 to range. 9.[address] abdomen pelvis was obtained which showed cortical scarring involving both kidneys, vascular calcifications no hydronephrosis, cholelithiasis present. Vitals are stable. Blood has been sent for type and cross. FOBT positive in the ER. Denies nausea vomiting constipation. Denies chest pain. Shortness of breath present however states that is chronic for him Medications/Allergies Home Medications Medication Instructions Recorded Confirmed Last Taken Type folic acid 1 mg tablet 1 mg PO DAILY 08/03/22 05/05/24 12/05/23 History acetaminophen 325 mg tablet 650 mg PO Q6H PRN Pain/fever 08/19/22 05/05/24 Unknown History (Tylenol) amiodarone 200 mg tablet (Pacerone) 200 mg PO DAILY #30 tabs 09/02/22 05/05/24 12/05/23 Rx tamsulosin 0.4 mg capsule 0.4 mg PO QPM #30 caps 09/02/22 05/05/24 09/08/22 Rx clopidogrel 75 mg tablet 75 mg PO DAILY #30 tabs 09/04/22 05/05/24 12/05/23 Rx metolazone 2.5 mg tablet 2.5 mg PO DAILY #90 tabs 10/26/22 05/05/24 Unknown Rx albuterol sulfate 90 mcg/actuation 2 inh inhalation Q6H PRN shortness 12/05/23 05/05/24 Unknown Rx aerosol inhaler of breath or wheezing #8 grams atorvastatin 80 mg tablet 40 mg PO QPM 07/01/2005/05/24 12/04/23 History potassium chloride 20 mEq See Rx Instructions .Route 01/03/24 05/05/24 Unknown Rx tablet,extended release .COMPLEX #180 tabs L3221 orthopedic shoes #1 ea 04/10/24 05/05/24 Unknown Rx furosemide 40 mg tablet 40 mg PO BID 05/05/24 05/05/24 Unknown History Allergies Allergy/AdvReac Type Severity Reaction Status Date / Time No Known Allergies Allergy Verified 04/10/24 09:59 PFSH Acute 2 PFSH: Medical History Chronic systolic CHF (congestive heart failure) 08/19/22: LVEF 15% Atrial fibrillation intermittent CAD (coronary artery disease) BPH loc w urin obs/LUTS Chronic decreased force of stream without RUTIs gross hematuria (previously prior to catheterization placement) or retention. 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, initial treatment with imiquimod, follows with Dr Gil Chronic alcohol use History of smoking Nicotine dependence, chewing tobacco, with other nicotine-induced disorders COPD (chronic obstructive pulmonary disease) Compression fx, lumbar spine 07/2022 L1, L3, L4 Lumbar disc disease with radiculopathy Amputated toe of left foot discharged from wound care 07/05/22, follows with Dr Brunner PAC (premature atrial contraction) Chronic hyponatremia Severe peripheral arterial disease Malignant neoplasm of glottis Claudication HTN (hypertension) History of nonmelanoma skin cancer Surgical History Status post kyphoplasty (08/06/22) L1, L3, L4 S/P right coronary artery (RCA) stent placement (08/30/22) S/P peripheral artery angioplasty with stent placement 12/2021 Left common/External Iliac Artery with 80% stenosis treated with AB ARMADA 35OTW [id number]. 8.0 x 19 mm Omnilink stent was placed. Left Proximal Superficial Femoral Artery with 80-90 % stenosis treated with AB ARMADA 35 OTW [id number]. 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 History of hip surgery right hip fracture repair Family History Other No pertinent family history Social History Smoking and tobacco/nicotine status: never used tobacco/nicotine Alcohol intake: current Alcohol type: hard liquor Substance/Drug Use: current Substance/Drug use frequency: Special occassions/opportunity only Lives independently: Yes Household members: none Housing: House Vitals/I&O/Wt Last Vital Signs Temp 98.0 F 05/05/24 09:19 Pulse 75 05/05/24 13:16 Resp 25 H 05/05/24 13:46 BP 113/51 05/05/24 13:16 Pulse Ox 95 05/05/24 13:46 O2 Del Method Room Air 05/05/24 12:09 Weight last 48 hrs Weight 77.111 kg Physical Exam 2 Narrative: General: No acute distress, AO x3, pleasant, hard of hearing Chest: Clear to auscultation bilaterally no wheezes or rhonchi CVS: S1-S2 no murmurs, no tachycardia, Abdomen: Soft, nontender, no organomegaly, bowel sounds present, morbidly obese Neuro: No focal deficits Extremity: No edema bilateral lower extremities at this time. Data 05/05/24 16:36 05/05/24 09:37 A&P Assessment and plan (1) Chronic hyponatremia: (2) Chronic alcoholism: (3) HTN (hypertension): (4) Severe peripheral arterial disease: (5) Melanotic stools: (6) GI bleeding: (7) Diarrhea: Plan #Melanotic stool, hematochezia #Diarrhea #Chronic systolic heart failure #Peripheral arterial disease status post toe amputation #Hypertension #Coronary artery disease status post PCI #Has refused ICD and LifeVest in the past. #Atrial fibrillation #Chronically on Plavix ? Placed on Protonix 40 twice daily. States his diarrhea has resolved by now. CT abdomen pelvis shows diverticulosis but no diverticulitis. #Having melanotic stools. I will hold Plavix at this time ? Patient has declined ICD LifeVest in the past ? Continue Lasix 40 p.o. daily ? Will type and cross 2 units packed RBC on hold. ? Check stool culture, ? Monitor off antibiotics at this time. ? He may have had a diverticular bleed versus true upper GI bleed. ? Patient is high risk for EGD at this time. Will plan to manage conservatively. Continue Protonix. His hemoglobin has been stable so far. He has had total 2 episodes of bloody diarrhea versus melanotic stool since yesterday. Will keep him n.p.o. except sips chips and meds. ? Consult general surgery ? Continue folic acid ? Check iron, TIBC, ferritin -Check CBC every 8 hours. -JJ, creatinine 1.5 today. Baseline 1.1-1.2.?Continue to monitor at this time. -Check BNP Full code DVT prophylaxis: SCDs. Patient has a friend Prabhu who he would like to have to make medical decisions for him if needed. He states there are 3 people that he has appointed. Believes he also has a DPOA in place. He would like to be a full code at this time. Attestations 2 Medical Necessity Statement*: Hematochezia or melanotic stool. Diagnoses Chronic hyponatremia E87.1 Chronic alcoholism F10.20 HTN (hypertension) I10 Severe peripheral arterial disease I73.9 Melanotic stools K92.1 GI bleeding K92.2 Diarrhea R19.7
[2024-05-05 16:45] LABS: Basophils % 0.4 %; Eosinophils % 0.2 %; Hematocrit 28.6 % (37-53); Lymphocytes # 1.4 10^3/uL (0.8-4.8); Lymphocytes % 16.4 %; Mean Corpuscular HGB Conc 32.5 g/dL (30-55); Mean Corpuscular Hemoglobin 34.6 pg (27-33); Mean Corpuscular Volume 106.3 fl (82-101); Mean Platelet Volume 9.8 fL (7.4-10.4); Monocytes # 1.1 10^3/uL (0.2-0.9); Monocytes % 12.9 %; Neutrophils # 5.88 10^3/uL (1.8-7.7); Neutrophils % 69.6 %; Nucleated Red Blood Cells % 0 %; Platelet Count 254 10^3/cmm (157-399); Red Blood Count 2.69 10^6/uL (3.85-5.65); Red Cell Distribution Width 14.5 % (12.1-15.1); White Blood Count 8.45 10^3/uL (3.29-11.43)
[2024-05-05 17:05] LABS: Ferritin 53 ng/mL (30-400); Iron 29 ug/dL (59-158); Percent Saturation 10.6 % (20-50); Total Iron Binding Capacity 273 mcg/dl; Unsaturated Iron Binding 244 ug/dL (112-347)
[2024-05-05 18:22] LABS: Basophils # 0.1 10^3/uL (0.0-0.1); Basophils % 0.7 %; Eosinophils % 0.3 %; Hematocrit 26.1 % (37-53); Lymphocytes # 1.1 10^3/uL (0.8-4.8); Lymphocytes % 15.2 %; Mean Corpuscular HGB Conc 31.8 g/dL (30-55); Mean Corpuscular Hemoglobin 33.9 pg (27-33); Mean Corpuscular Volume 106.5 fl (82-101); Mean Platelet Volume 9.7 fL (7.4-10.4); Monocytes # 1.1 10^3/uL (0.2-0.9); Monocytes % 14.9 %; Neutrophils # 5.06 10^3/uL (1.8-7.7); Neutrophils % 68.4 %; Nucleated Red Blood Cells % 0 %; Platelet Count 216 10^3/cmm (157-399); Red Blood Count 2.45 10^6/uL (3.85-5.65); Red Cell Distribution Width 14.4 % (12.1-15.1); White Blood Count 7.39 10^3/uL (3.29-11.43)
[2024-05-05 18:48] LABS: NT Pro B Type Natriuretic Pept 501 pg/mL (0-450)
[2024-05-05] MEDS: pantoprazole 40 mg SDV IVP (21:11)
[2024-05-06] VITALS (8 sets, daily range): BP systolic 113–138; BP diastolic 61–75; PULSE 67–91; RESP 15–21; TEMP 36.4–36.8; O2SAT 93–100
[2024-05-06 01:08] LABS: Basophils # 0.1 10^3/uL (0.0-0.1); Basophils % 0.9 %; Eosinophils # 0.1 10^3/uL (0.0-0.8); Eosinophils % 0.7 %; Hematocrit 25.7 % (37-53); Lymphocytes # 1.2 10^3/uL (0.8-4.8); Lymphocytes % 17.5 %; Mean Corpuscular HGB Conc 32.3 g/dL (30-55); Mean Corpuscular Hemoglobin 34.3 pg (27-33); Mean Corpuscular Volume 106.2 fl (82-101); Mean Platelet Volume 9.9 fL (7.4-10.4); Monocytes # 0.9 10^3/uL (0.2-0.9); Monocytes % 12.7 %; Neutrophils # 4.74 10^3/uL (1.8-7.7); Neutrophils % 67.6 %; Nucleated Red Blood Cells % 0.3 %; Platelet Count 215 10^3/cmm (157-399); Red Blood Count 2.42 10^6/uL (3.85-5.65); Red Cell Distribution Width 14.5 % (12.1-15.1); White Blood Count 7.01 10^3/uL (3.29-11.43)
[2024-05-06 08:15] LABS: Basophils % 0.6 %; Eosinophils # 0.1 10^3/uL (0.0-0.8); Eosinophils % 1.1 %; Hematocrit 25.3 % (37-53); Lymphocytes # 1.2 10^3/uL (0.8-4.8); Lymphocytes % 18.2 %; Mean Corpuscular HGB Conc 32.4 g/dL (30-55); Mean Corpuscular Hemoglobin 33.7 pg (27-33); Mean Corpuscular Volume 104.1 fl (82-101); Mean Platelet Volume 9.8 fL (7.4-10.4); Monocytes # 0.8 10^3/uL (0.2-0.9); Monocytes % 12.3 %; Neutrophils # 4.46 10^3/uL (1.8-7.7); Neutrophils % 67.2 %; Nucleated Red Blood Cells % 0 %; Platelet Count 236 10^3/cmm (157-399); Red Blood Count 2.43 10^6/uL (3.85-5.65); Red Cell Distribution Width 14.3 % (12.1-15.1); White Blood Count 6.64 10^3/uL (3.29-11.43)
[2024-05-06 08:38] LABS: Anion Gap 12.5 (5-19); Blood Urea Nitrogen 14 mg/dL (8-23); Calcium 8.2 mg/dL (8.5-10.5); Carbon Dioxide 24 mmol/L (22-29); Chloride 105 mmol/L (98-107); Creatinine Clr Calc Pharmacy 59.3966; Glucose 93 mg/dL (65-115); Magnesium 2.2 mg/dL (1.7-2.3); Osmolality Calculated 286 mOsm/kg (285-295); Potassium 3.5 mmol/L (3.5-5.1); Sodium 138 mmol/L (136-145)
[2024-05-06] MEDS: FUROsemide 40 mg Tablet PO (08:41)
[2024-05-06] MEDS: amiodarone 200 mg Tablet PO (08:41)
--- NOTE | 2024-05-06 11:09 | P.CONIM_ITS ---
Providers/Reason For Consult 2 Consulting Physician/Specialty*: Dr. Sai Gibbs, /General Surgery Reason for Consult*: Abdominal pain, GI bleed Attending Physician: Gena Esposito MD Primary Care Provider: Sachin Gallagher DO History of Present Illness History of Present Illness Reginald Pelaez is a 83 year old male who presented to the hospital with abdominal pain and a GI bleed. He reports that he has been having bright red blood in his stools along with melena. He has left-sided abdominal pain but he also has left-sided rib fractures. Palpation makes his pain worse, nothing makes his pain better. The pain does not radiate. He is never had a colonoscopy. His father had colon cancer. He denies any heartburn Review of Systems 2 General: Reports: 10 or more systems reviewed and unremarkable except in HPI and below Medications/Allergies Home Medications Medication Instructions Recorded Confirmed Last Taken Type folic acid 1 mg tablet 1 mg PO DAILY 08/03/22 05/05/24 12/05/23 History acetaminophen 325 mg tablet 650 mg PO Q6H PRN Pain/fever 08/19/22 05/05/24 Unknown History (Tylenol) amiodarone 200 mg tablet (Pacerone) 200 mg PO DAILY #30 tabs 09/02/22 05/05/24 12/05/23 Rx tamsulosin 0.4 mg capsule 0.4 mg PO QPM #30 caps 09/02/22 05/05/24 09/08/22 Rx clopidogrel 75 mg tablet 75 mg PO DAILY #30 tabs 09/04/22 05/05/24 12/05/23 Rx metolazone 2.5 mg tablet 2.5 mg PO DAILY #90 tabs 10/26/22 05/05/24 Unknown Rx albuterol sulfate 90 mcg/actuation 2 inh inhalation Q6H PRN shortness 12/05/23 05/05/24 Unknown Rx aerosol inhaler of breath or wheezing #8 grams atorvastatin 80 mg tablet 40 mg PO QPM 12/05/23 05/05/24 12/04/23 History potassium chloride 20 mEq See Rx Instructions .Route 01/03/24 05/05/24 Unknown Rx tablet,extended release .COMPLEX #180 tabs L3221 orthopedic shoes #1 ea 04/10/24 05/05/24 Unknown Rx furosemide 40 mg tablet 40 mg PO BID 05/05/24 05/05/24 Unknown History Allergies Allergy/AdvReac Type Severity Reaction Status Date / Time No Known Allergies Allergy Verified 04/10/24 09:59 Current Medications Generic Name Dose Route Start Last Admin Trade Name Steve PRN Reason Stop Dose Admin Amiodarone HCl 200 mg 05/06/24 09:00 05/06/24 08:41 Amiodarone 200 Mg Tablet PO 200 mg DAILY LINDA Administration Furosemide 40 mg 05/06/24 08:00 05/06/24 08:41 Furosemide 40 Mg Tablet PO 40 mg DAILY@0800 LINDA Administration Pantoprazole Sodium 40 mg 05/05/24 22:00 05/05/24 21:11 Pantoprazole 40 Mg Sdv IVP 40 mg Q12H LINDA Administration PFSH Acute 2 PFSH: Medical History Chronic systolic CHF (congestive heart failure) 08/19/22: LVEF 15% Atrial fibrillation intermittent CAD (coronary artery disease) BPH loc w urin obs/LUTS Chronic decreased force of stream without RUTIs gross hematuria (previously prior to catheterization placement) or retention. 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, initial treatment with imiquimod, follows with Dr Gil Chronic alcohol use History of smoking Nicotine dependence, chewing tobacco, with other nicotine-induced disorders COPD (chronic obstructive pulmonary disease) Compression fx, lumbar spine 07/2022 L1, L3, L4 Lumbar disc disease with radiculopathy Amputated toe of left foot discharged from wound care 07/05/22, follows with Dr Brunner PAC (premature atrial contraction) Chronic hyponatremia Severe peripheral arterial disease Malignant neoplasm of glottis Claudication HTN (hypertension) History of nonmelanoma skin cancer Surgical History Status post kyphoplasty (08/06/22) L1, L3, L4 S/P right coronary artery (RCA) stent placement (08/30/22) S/P peripheral artery angioplasty with stent placement 12/2021 Left common/External Iliac Artery with 80% stenosis treated with AB ARMADA 35OTW [id number]. 8.0 x 19 mm Omnilink stent was placed. Left Proximal Superficial Femoral Artery with 80-90 % stenosis treated with AB ARMADA 35 OTW [id number]. 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 History of hip surgery right hip fracture repair Family History Other No pertinent family history Social History Smoking and tobacco/nicotine status: never used tobacco/nicotine Alcohol intake: current Alcohol type: hard liquor Substance/Drug Use: current Substance/Drug use frequency: Special occassions/opportunity only Lives independently: Yes Household members: none Housing: House Vitals/I&O/Wt Last Vital Signs Temp 98 F 05/06/24 08:00 Pulse 67 05/06/24 08:00 Resp 15 05/06/24 08:00 BP 113/61 05/06/24 08:00 Pulse Ox 93 05/06/24 08:00 O2 Del Method Room Air 05/06/24 08:00 05/05/24 05/06/24 05/06/24 22:59 06:59 14:59 Output Total 400 / 400 525 / 925 Balance -400 / -400 -525 / -925 Weight last 48 hrs Weight 165 lb 11.2 oz Weight 165 lb 12.8 oz Weight 170 lb Physical Exam 2 Narrative: General : Patient is well developed , no acute distress, oriented x3 Head : Normal cephalic, a-traumatic. Ears : Pinnae and external canal are normal. Hearing is normal. Eyes : PERRLA, Sclera and injection are normal. No conjunctival discharge. Nose : Mucous membranes are without erythema. Throat : buccal mucosa is normal, gums are without significant recession or hypertrophy. Lungs : Equal chest rise bilaterally, no use of accessory muscles, trachea is midline. Cor : Rate and rhythm are normal. Abdomen : Soft, ND, left-sided abdominal tenderness, no g/r/m Extremities : No edema, no cyanosis or clubbing, dorsalis pedis pulses are present bilaterally, non-tender to palpation of calves. Upper extremities are normal bilaterally. Back : non-tender to palpation, no CVA tenderness. Neuro : CN II - XII intact, Upper and lower extremities have equal and full strength Data 05/06/24 07:41 05/06/24 07:41 A&P Assessment and plan (1) GI bleeding: (2) Family history of colon cancer: Plan Cardiology consult per medicine Bowel prep Tomorrow for EGD and colonoscopy The risks and benefits of the procedure, including bleeding, infection, intestinal perforation requiring surgery, missed lesion were explained to the patient. The patient is understanding of the risks and wishes to proceed. Consult Attestations 2 Medical Necessity Statement: Per primary Coding Level of Care Code 92737 Diagnoses GI bleeding K92.2 Family history of colon cancer Z80.0
[2024-05-06] MEDS: pantoprazole 40 mg SDV IVP ×2 (11:14→21:05)
[2024-05-06] MEDS: bisacodyl 5 mg Tablet 20 MG PO (11:48)
[2024-05-06] MEDS: magnesium citrate Btl 296 mL PO ×2 (11:48→16:01)
--- NOTE | 2024-05-06 14:38 | P.PN_ITS ---
Subjective 2 Subjective: Seen this morning. Hemoglobin continues to slowly drop down. 8.2 today. Seen patient laying in bed. He states he is comfortable at this time. Denies having any further episodes of diarrhea. Vitals/I&O/Wt Last Vital Signs Temp 98 F 05/06/24 08:00 Pulse 67 05/06/24 08:00 Resp 15 05/06/24 08:00 BP 113/61 05/06/24 08:00 Pulse Ox 93 05/06/24 08:00 O2 Del Method Room Air 05/06/24 08:00 05/05/24 05/06/24 05/06/24 22:59 06:59 14:59 Output Total 400 / 400 525 / 925 Balance -400 / -400 -525 / -925 Weight last 48 hrs Weight 75.16 kg Weight 75.206 kg Weight 77.111 kg Physical Exam 2 Narrative: General: No acute distress, AO x3, pleasant, hard of hearing Chest: Clear to auscultation bilaterally no wheezes or rhonchi CVS: S1-S2 no murmurs, no tachycardia, Abdomen: Soft, nontender, no organomegaly, bowel sounds present, morbidly obese Neuro: No focal deficits Extremity: No edema bilateral lower extremities at this time. Data 05/06/24 07:41 05/06/24 07:41 A&P Assessment and plan (1) Chronic hyponatremia: (2) Chronic alcoholism: (3) HTN (hypertension): (4) Severe peripheral arterial disease: (5) Melanotic stools: (6) GI bleeding: (7) Diarrhea: Plan #Melanotic stool, hematochezia #Diarrhea #Chronic systolic heart failure #Peripheral arterial disease status post toe amputation #Hypertension #Coronary artery disease status post PCI #Has refused ICD and LifeVest in the past. #Atrial fibrillation #Chronically on Plavix ? Placed on Protonix 40 twice daily. States his diarrhea has resolved by now. CT abdomen pelvis shows diverticulosis but no diverticulitis. #Having melanotic stools. I will hold Plavix at this time ? Patient has declined ICD LifeVest in the past ? Continue Lasix 40 p.o. daily ? Will type and cross 2 units packed RBC on hold. ? Check stool culture, ? Monitor off antibiotics at this time. ? He may have had a diverticular bleed versus true upper GI bleed. ? Patient is high risk for EGD at this time. Will plan to manage conservatively. Continue Protonix. His hemoglobin has been stable so far. He has had total 2 episodes of bloody diarrhea versus melanotic stool since yesterday. Will keep him n.p.o. except sips chips and meds. ? Consult general surgery ? Continue folic acid ? Check iron, TIBC, ferritin -Check CBC every 8 hours. -JJ, creatinine 1.5 today. Baseline 1.1-1.2.?Continue to monitor at this time. -Check BNP Full code DVT prophylaxis: SCDs. Patient has a friend Prabhu who he would like to have to make medical decisions for him if needed. He states there are 3 people that he has appointed. Believes he also has a DPOA in place. He would like to be a full code at this time. 05/06/2024 -General surgery evaluated the patient. ? Plan for EGD colonoscopy in AM. ? Cardiac clearance requested. Consult cardiology ? Continue to monitor hemoglobin every 8 hours. ? Hemoglobin 8.2 this morning. ? Vitals are stable. ? N.p.o. at midnight ? Iron studies reviewed. Evidence of iron deficiency anemia. Will hold off on starting iron at this time. Attestations 2 Medical Necessity Statement*: Hematochezia or melanotic stool. Diagnoses Chronic hyponatremia E87.1 Chronic alcoholism F10.20 HTN (hypertension) I10 Severe peripheral arterial disease I73.9 Melanotic stools K92.1 GI bleeding K92.2 Diarrhea R19.7
--- NOTE | 2024-05-06 15:43 | P.CONIM_ITS ---
Providers/Reason For Consult 2 Consulting Physician/Specialty*: Basim Tejeda MD Reason for Consult*: Preop clearance for endoscopy/colonoscopy in the face of GI bleed Requesting Physician: Dr. Esposito Attending Physician: Gena Esposito MD Primary Care Provider: Sachin Gallagher DO History of Present Illness History of Present Illness Reginald Pelaez is a 83 year old male past medical history significant for history of cardiomyopathy history of stent to RCA atrial fibrillation severely depressed ejection fraction reduced from normal 55% documented in 2021 to 15% documented as per echo in 2022. Patient was started on guideline medical therapy for heart failure including Entresto at 1 point but I cannot see it in his home meds on the medicine I can see metolazone furosemide clopidogrel atorvastatin amiodarone, he had refused ICD in the past, since then there is no repeat in the echocardiogram however patient says that he is doing fine has not been admitted recently for heart failure symptoms has not had any chest pain and he can easily do his daily chores without much restriction. Please note that this is as per patient. Patient is admitted now with GI bleed and drop in hemoglobin. Medicine and surgery would like to perform Endo/colonoscope to rule out etiology and perhaps to treat. It is the reason we have been asked if patient can withstand the procedure. Since patient denies any chest pain he is not in decompensated heart failure therefore he will be low to moderate risk for colonoscopy and endoscopy given his low ejection fraction/cardiomyopathy, however at this point will ask for echocardiogram to document if there is any improvement in ejection fraction since it has been almost a year . In general we will clear him under acceptable risk for anesthesia and procedure Medications/Allergies Home Medications Medication Instructions Recorded Confirmed Last Taken Type folic acid 1 mg tablet 1 mg PO DAILY 08/03/22 05/05/24 12/05/23 History acetaminophen 325 mg tablet 650 mg PO Q6H PRN Pain/fever 08/19/22 05/05/24 Unknown History (Tylenol) amiodarone 200 mg tablet (Pacerone) 200 mg PO DAILY #30 tabs 09/02/22 05/05/24 12/05/23 Rx tamsulosin 0.4 mg capsule 0.4 mg PO QPM #30 caps 09/02/22 05/05/24 09/08/22 Rx clopidogrel 75 mg tablet 75 mg PO DAILY #30 tabs 09/04/22 05/05/24 12/05/23 Rx metolazone 2.5 mg tablet 2.5 mg PO DAILY #90 tabs 10/26/22 05/05/24 Unknown Rx albuterol sulfate 90 mcg/actuation 2 inh inhalation Q6H PRN shortness 12/05/23 05/05/24 Unknown Rx aerosol inhaler of breath or wheezing #8 grams atorvastatin 80 mg tablet 40 mg PO QPM 12/05/23 05/05/24 12/04/23 History potassium chloride 20 mEq See Rx Instructions .Route 01/03/24 05/05/24 Unknown Rx tablet,extended release .COMPLEX #180 tabs L3221 orthopedic shoes #1 ea 04/10/24 05/05/24 Unknown Rx furosemide 40 mg tablet 40 mg PO BID 05/05/24 05/05/24 Unknown History Allergies Allergy/AdvReac Type Severity Reaction Status Date / Time No Known Allergies Allergy Verified 04/10/24 09:59 Current Medications Generic Name Dose Route Start Last Admin Trade Name Steve PRN Reason Stop Dose Admin Amiodarone HCl 200 mg 05/06/24 09:00 05/06/24 08:41 Amiodarone 200 Mg Tablet PO 200 mg DAILY LINDA Administration Furosemide 40 mg 05/06/24 08:00 05/06/24 08:41 Furosemide 40 Mg Tablet PO 40 mg DAILY@0800 LINDA Administration Pantoprazole Sodium 40 mg 05/05/24 22:00 05/06/24 11:14 Pantoprazole 40 Mg Sdv IVP 40 mg Q12H LINDA Administration PFSH Acute 2 PFSH: Medical History (Updated 05/06/24 @ 15:58 by Basim Tejeda MD) Cardiomyopathy Chronic systolic CHF (congestive heart failure) 08/19/22: LVEF 15% Atrial fibrillation intermittent CAD (coronary artery disease) BPH loc w urin obs/LUTS Chronic decreased force of stream without RUTIs gross hematuria (previously prior to catheterization placement) or retention. 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, initial treatment with imiquimod, follows with Dr Gil Chronic alcohol use History of smoking Nicotine dependence, chewing tobacco, with other nicotine-induced disorders COPD (chronic obstructive pulmonary disease) Compression fx, lumbar spine 07/2022 L1, L3, L4 Lumbar disc disease with radiculopathy Amputated toe of left foot discharged from wound care 07/05/22, follows with Dr Brunner PAC (premature atrial contraction) Chronic hyponatremia Severe peripheral arterial disease Malignant neoplasm of glottis Claudication HTN (hypertension) History of nonmelanoma skin cancer Surgical History Status post kyphoplasty (08/06/22) L1, L3, L4 S/P right coronary artery (RCA) stent placement (08/30/22) S/P peripheral artery angioplasty with stent placement 12/2021 Left common/External Iliac Artery with 80% stenosis treated with AB ARMADA 35OTW [id number]. 8.0 x 19 mm Omnilink stent was placed. Left Proximal Superficial Femoral Artery with 80-90 % stenosis treated with AB ARMADA 35 OTW [id number]. 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 History of hip surgery right hip fracture repair Family History Other No pertinent family history Social History Smoking and tobacco/nicotine status: never used tobacco/nicotine Alcohol intake: current Alcohol type: hard liquor Substance/Drug Use: current Substance/Drug use frequency: Special occassions/opportunity only Lives independently: Yes Household members: none Housing: House Vitals/I&O/Wt Last Vital Signs Temp 98.3 F 05/06/24 12:00 Pulse 70 05/06/24 12:00 Resp 16 05/06/24 12:00 BP 124/62 05/06/24 12:00 Pulse Ox 94 05/06/24 12:00 O2 Del Method Room Air 05/06/24 12:00 05/06/24 05/06/24 05/06/24 06:59 14:59 22:59 Output Total 525 / 925 Balance -525 / -925 Weight last 48 hrs Weight 165 lb 11.2 oz Weight 165 lb 12.8 oz Weight 170 lb Physical Exam 2 Const: OTHER: GENERAL: Patient is alert, awake and oriented x3. HEART: Regular S1 and S2. No murmur, rub or gallop. LUNGS: Clear to auscultate bilaterally. CENTRAL NERVOUS SYSTEM: Grossly nonfocal. EXTREMITIES: Lower extremities with out edema bilaterally. Data 05/06/24 07:41 05/06/24 07:41 A&P Assessment and plan (1) Preoperative clearance: Given patient not having any active symptoms such as chest pain out of usual shortness of breath or heart failure symptoms or evidence of decompensated heart failure he can proceed with endoscopy/colonoscopy under acceptable risk for anesthesia and surgery. (2) Cardiomyopathy: I will ask for echocardiogram to assess LV function. He may need to be on guideline medical therapy for heart failure such as Entresto and beta-ashli if ejection fraction remains low on echo Qualifiers: Cardiomyopathy type: ischemic Qualified Code(s): I25.5 - Ischemic cardiomyopathy (3) GI bleeding: As per medicine (4) HTN (hypertension): Well-controlled (5) Atrial fibrillation: Sinus rhythm with PACs (6) Chronic systolic CHF (congestive heart failure): Well compensated continue current regimen continue diuretics may add Entresto Plan As above Consult Attestations 2 Medical Necessity Statement: Deferred to primary team Coding Level of Care Code Acute Code for Chg Fwd Diagnoses Preoperative clearance Z01.818 Ischemic cardiomyopathy I25.5 Cardiomyopathy type: ischemic GI bleeding K92.2 HTN (hypertension) I10 Atrial fibrillation I48.91 Chronic systolic CHF (congestive heart failure) I50.22
[2024-05-06 17:04] LABS: Basophils # 0.1 10^3/uL (0.0-0.1); Basophils % 0.5 %; Eosinophils # 0.1 10^3/uL (0.0-0.8); Eosinophils % 0.6 %; Hematocrit 29.8 % (37-53); Lymphocytes # 1.1 10^3/uL (0.8-4.8); Lymphocytes % 11.6 %; Mean Corpuscular HGB Conc 32.2 g/dL (30-55); Mean Corpuscular Hemoglobin 34.3 pg (27-33); Mean Corpuscular Volume 106.4 fl (82-101); Mean Platelet Volume 9.6 fL (7.4-10.4); Monocytes % 10.7 %; Neutrophils # 7.02 10^3/uL (1.8-7.7); Neutrophils % 76.1 %; Nucleated Red Blood Cells % 0.2 %; Platelet Count 263 10^3/cmm (157-399); Red Cell Distribution Width 14.2 % (12.1-15.1); White Blood Count 9.24 10^3/uL (3.29-11.43)
[2024-05-07] VITALS (13 sets, daily range): BP systolic 94–146; BP diastolic 52–79; PULSE 63–79; RESP 16–20; TEMP 20.1–36.7; O2SAT 91–100
[2024-05-07 01:19] LABS: Basophils # 0.1 10^3/uL (0.0-0.1); Basophils % 0.6 %; Eosinophils % 0.5 %; Hematocrit 28.5 % (37-53); Lymphocytes # 1.5 10^3/uL (0.8-4.8); Lymphocytes % 17.8 %; Mean Corpuscular HGB Conc 32.6 g/dL (30-55); Mean Corpuscular Hemoglobin 34.6 pg (27-33); Mean Corpuscular Volume 105.9 fl (82-101); Mean Platelet Volume 9.8 fL (7.4-10.4); Neutrophils # 5.87 10^3/uL (1.8-7.7); Neutrophils % 68.5 %; Nucleated Red Blood Cells % 0.5 %; Platelet Count 271 10^3/cmm (157-399); Red Blood Count 2.69 10^6/uL (3.85-5.65); Red Cell Distribution Width 14.4 % (12.1-15.1); White Blood Count 8.56 10^3/uL (3.29-11.43)
[2024-05-07 03:39] LABS: Basophils # 0.1 10^3/uL (0.0-0.1); Basophils % 0.7 %; Eosinophils % 0.6 %; Hematocrit 27.4 % (37-53); Lymphocytes # 1.3 10^3/uL (0.8-4.8); Lymphocytes % 17.8 %; Mean Corpuscular HGB Conc 32.5 g/dL (30-55); Mean Corpuscular Hemoglobin 34.4 pg (27-33); Mean Corpuscular Volume 105.8 fl (82-101); Mean Platelet Volume 9.6 fL (7.4-10.4); Monocytes % 13.6 %; Neutrophils # 4.78 10^3/uL (1.8-7.7); Neutrophils % 66.3 %; Nucleated Red Blood Cells % 0.4 %; Platelet Count 232 10^3/cmm (157-399); Red Blood Count 2.59 10^6/uL (3.85-5.65); Red Cell Distribution Width 14.1 % (12.1-15.1)
[2024-05-07 03:56] LABS: Anion Gap 12.1 (5-19); Blood Urea Nitrogen 11 mg/dL (8-23); Calcium 8.2 mg/dL (8.5-10.5); Carbon Dioxide 25 mmol/L (22-29); Chloride 101 mmol/L (98-107); Creatinine Clr Calc Pharmacy 53.9969; Glucose 106 mg/dL (65-115); Magnesium 2.5 mg/dL (1.7-2.3); Osmolality Calculated 280 mOsm/kg (285-295); Potassium 3.1 mmol/L (3.5-5.1); Sodium 135 mmol/L (136-145)
--- NOTE | 2024-05-07 06:15 | PC.NURSE ---
Patient transported off unit for EGD and Colonoscopy via stretcher.
--- NOTE | 2024-05-07 07:03 | P.PN_ITS ---
Vitals/I&O/Wt Last Vital Signs Temp 68.2 F L 05/07/24 06:23 Pulse 64 05/07/24 06:23 Resp 16 05/07/24 06:23 BP 140/61 05/07/24 06:23 Pulse Ox 97 05/07/24 06:23 O2 Del Method Room Air 05/07/24 06:23 05/06/24 05/07/24 05/07/24 22:59 06:59 14:59 Intake Total 240 / 240 Balance 240 / 240 Weight last 48 hrs Weight 162 lb Weight 165 lb 11.2 oz Weight 165 lb 12.8 oz Weight 170 lb Data 05/07/24 03:03 05/07/24 03:03 A&P Assessment and plan (1) GI bleeding: (2) Family history of colon cancer: Plan EGD and colonoscopy The risks and benefits of the procedure, including bleeding, infection, intestinal perforation requiring surgery, missed lesion were explained to the patient. The patient is understanding of the risks and wishes to proceed. Attestations 2 Medical Necessity Statement*: Per primary Coding Level of Care Code Acute Code for Chg Fwd Diagnoses GI bleeding K92.2 Family history of colon cancer Z80.0
[2024-05-07] MEDS: sodium chloride 0.9% 500 ML 15 ML IV (07:38)
--- NOTE | 2024-05-07 07:44 | P.ANESASSM_ITS ---
Pre-Anesthetic Assessment Height/Weight: Height 5 ft 9 in Weight 162 lb Temp Pulse Resp BP Pulse Ox O2 Del Method 68.2 F L 64 16 140/61 97 Room Air 05/07/24 06:23 05/07/24 06:23 05/07/24 06:23 05/07/24 06:23 05/07/24 06:23 05/07/24 06:23 Preop Diagnosis: Acute GI bleed Operation Date: 05/07/24 07:45 Proposed Procedures p Colonoscopy(Not Applicable) - Sai Gibbs DO s EGD(Not Applicable) - Sai Gibbs DO Was Beta Haley taken within 24 hours: N/A Was Clonidine taken within 24 hours: N/A Last intake: Intake Last Liquid Date 05/06/24 Last Liquid Time 23:30 Last Solid Date 05/06/24 Last Solid Time 18:00 Exam alert, oriented x 3, clear to auscultation bilaterally and regular rate & rhythm Airway Submandibular: within normal limits Cervical ROM: within normal limits Mallampati: Class II Dentition: other (Edentulous) Anesthetic Plan ASA status: 4 Anesthesia: MAC Other: Patient admitted 05/05/2024 for acute GI bleed. Hemoglobin 8.3 at admission Denies any issues with anesthesia CHF with EF 15% Atrial fibrillation GERD Chronic alcohol use COPD Chronic hyponatremia, NA 135 today Labs reviewed today, hemoglobin 8.9 METS less than 4 Plan for MAC anesthetic Medications/Allergies Home Medications Medication Instructions Recorded Confirmed Last Taken Type folic acid 1 mg tablet 1 mg PO DAILY 08/03/22 05/05/24 12/05/23 History acetaminophen 325 mg tablet 650 mg PO Q6H PRN Pain/fever 08/19/22 05/05/24 Unknown History (Tylenol) amiodarone 200 mg tablet (Pacerone) 200 mg PO DAILY #30 tabs 09/02/22 05/05/24 12/05/23 Rx tamsulosin 0.4 mg capsule 0.4 mg PO QPM #30 caps 09/02/22 05/05/24 09/08/22 Rx clopidogrel 75 mg tablet 75 mg PO DAILY #30 tabs 09/04/22 05/05/24 12/05/23 Rx metolazone 2.5 mg tablet 2.5 mg PO DAILY #90 tabs 10/26/22 05/05/24 Unknown Rx albuterol sulfate 90 mcg/actuation 2 inh inhalation Q6H PRN shortness 12/05/23 05/05/24 Unknown Rx aerosol inhaler of breath or wheezing #8 grams atorvastatin 80 mg tablet 40 mg PO QPM 12/05/23 05/05/24 12/04/23 History potassium chloride 20 mEq See Rx Instructions .Route 01/03/24 05/05/24 Unknown Rx tablet,extended release .COMPLEX #180 tabs L3221 orthopedic shoes #1 ea 04/10/24 05/05/24 Unknown Rx furosemide 40 mg tablet 40 mg PO BID 05/05/24 05/05/24 Unknown History Allergies Allergy/AdvReac Type Severity Reaction Status Date / Time No Known Allergies Allergy Verified 04/10/24 09:59 Current Medications Generic Name Dose Route Start Last Admin Trade Name Freq PRN Reason Stop Dose Admin Amiodarone HCl 200 mg 05/06/24 09:00 05/06/24 08:41 Amiodarone 200 Mg Tablet PO 200 mg DAILY LINDA Administration Furosemide 40 mg 05/06/24 08:00 05/06/24 08:41 Furosemide 40 Mg Tablet PO 40 mg DAILY@0800 LINDA Administration Sodium Chloride 500 mls @ 15 mls/hr 05/07/24 06:13 05/07/24 07:38 Sodium Chloride 0.9% IV 05/08/24 06:12 15 mls/hr .Q24H PRN Administration COLONOSCOPY FLUIDS Pantoprazole Sodium 40 mg 05/05/24 22:00 05/06/24 21:05 Pantoprazole 40 Mg Sdv IVP 40 mg Q12H LINDA Administration PFSH Anesthesia Medical History (Updated 05/06/24 @ 15:58 by Basim Tejeda MD) Cardiomyopathy Chronic systolic CHF (congestive heart failure) 08/19/22: LVEF 15% Atrial fibrillation intermittent CAD (coronary artery disease) BPH loc w urin obs/LUTS Chronic decreased force of stream without RUTIs gross hematuria (previously prior to catheterization placement) or retention. 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, initial treatment with imiquimod, follows with Dr Gil Chronic alcohol use History of smoking Nicotine dependence, chewing tobacco, with other nicotine-induced disorders COPD (chronic obstructive pulmonary disease) Compression fx, lumbar spine 07/2022 L1, L3, L4 Lumbar disc disease with radiculopathy Amputated toe of left foot discharged from wound care 07/05/22, follows with Dr Brunner PAC (premature atrial contraction) Chronic hyponatremia Severe peripheral arterial disease Malignant neoplasm of glottis Claudication HTN (hypertension) History of nonmelanoma skin cancer Surgical History Status post kyphoplasty (08/06/22) L1, L3, L4 S/P right coronary artery (RCA) stent placement (08/30/22) S/P peripheral artery angioplasty with stent placement 12/2021 Left common/External Iliac Artery with 80% stenosis treated with AB ARMADA [id number]. 8.0 x 19 mm Omnilink stent was placed. Left Proximal Superficial Femoral Artery with 80-90 % stenosis treated with AB ARMADA 35 [id number] [id number]. 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 History of hip surgery right hip fracture repair Family History Other No pertinent family history Social History Smoking and tobacco/nicotine status: never used tobacco/nicotine Alcohol intake: current Alcohol type: hard liquor Substance/Drug Use: current Substance/Drug use frequency: Special occassions/opportunity only Lives independently: Yes Household members: none Housing: House Data Anesthesia 05/07/24 03:03 05/07/24 03:03 Short CBC 05/05/24 05/05/24 05/05/24 Range/Units 09:37 16:36 18:14 WBC 7.59 8.45 7.39 (3.29-11.43) 10^3/uL Hgb 9.20 L 9.30 L 8.30 L (11.27-16.99) g/dL Hct 27.9 L 28.6 L 26.1 L (37-53) % MCV 104.1 H 106.3 H 106.5 H (82-101) fl Plt Count 241 254 216 (157-399) 10^3/cmm Neut % (Auto) 69.5 69.6 68.4 % Neut # (Auto) 5.28 5.88 5.06 (1.8-7.7) 10^3/uL 05/06/24 05/06/24 05/06/24 Range/Units 00:36 07:41 16:50 WBC 7.01 6.64 9.24 (3.29-11.43) 10^3/uL Hgb 8.30 L 8.20 L 9.60 L (11.27-16.99) g/dL Hct 25.7 L 25.3 L 29.8 L (37-53) % MCV 106.2 H 104.1 H 106.4 H (82-101) fl Plt Count 215 236 263 (157-399) 10^3/cmm Neut % (Auto) 67.6 67.2 76.1 % Neut # (Auto) 4.74 4.46 7.02 (1.8-7.7) 10^3/uL 05/07/24 05/07/24 Range/Units 01:06 03:03 WBC 8.56 7.20 (3.29-11.43) 10^3/uL Hgb 9.30 L 8.90 L (11.27-16.99) g/dL Hct 28.5 L 27.4 L (37-53) % MCV 105.9 H 105.8 H (82-101) fl Plt Count 271 232 (157-399) 10^3/cmm Neut % (Auto) 68.5 66.3 % Neut # (Auto) 5.87 4.78 (1.8-7.7) 10^3/uL BMP 05/05/24 05/06/24 05/07/24 09:37 07:41 03:03 Sodium 131 L 138 135 L Potassium 4.0 3.5 3.1 L Chloride 98 105 101 Carbon Dioxide 22 24 25 BUN 22 14 11 Creatinine 1.5 H 1.0 1.1 Glucose 116 H 93 106 Calcium 9.1 8.2 L 8.2 L Cardiac Enzymes 05/05/24 Range/Units 18:14 NT-Pro-B Natriuret Pep 501 H (0-450) pg/mL Liver Function 05/05/24 Range/Units 09:37 Total Bilirubin 0.8 (0.15-1.2) mg/dL AST 31 (0-40) U/L ALT 23 (0-41) U/L Alkaline Phosphatase 89 (40-130) U/L Albumin 3.8 (3.5-5.2) g/dL Blood Bank 05/05/24 09:37 Blood Type O Positive Rho(D) Type Rh positive Antibody Screen Negative Coags 05/05/24 09:37 PT 13.40 INR 0.99 Cardiac Studies: 2 Echocardiogram 08/19/22
--- NOTE | 2024-05-07 07:56 | PC.NURSE ---
off unit to gi lab
--- NOTE | 2024-05-07 09:20 | ANE.PACU2 ---
Inpatient post-anesthesia follow up: Airway intact: Yes Vital signs: Temperature 97.5 F Pulse Rate 76 Respiratory Rate 17 Blood Pressure 107/55 Pulse Oximetry 94 Oxygen Delivery Me thod Room Air Oxygen Flow Rate Fraction of Inspir ed Oxygen Hydration adequate: Yes Nausea and vomiting: No Pain level: 1 Mental status: Baseline
--- NOTE | 2024-05-07 10:04 | PC.CHAP ---
Pastoral Care Encounter/Spiritual Assessment Type of Contact [] Declined legal archivist visit [] Patient/Family/Request visit [] Outpatient visit [] Follow-up visit [] Physician referral [] Code/Alert [x] Routine visit [] Staff referral [] Actively dying [] Patient sleeping [] Family support [] [] Out of room [] Palliative care [] [x] Receiving care in room [] Pre-surgical visit [] Trauma [] Long length of stay [] ICU visit [] Other: Relational/Emotional Strength [] Patient feels connected with others/family/visitors/staff [] Distress [] Loneliness/isolation [] Abandonment Spirituality of Patient [] Person of Jovana [] Attends Mormonism of their Jovana [] Believes in Prayer [] Reads Bible or Taoism materials [] There are Spiritual issues to be addressed Swatcher Interventions [x] Prayer [] Active listening [] Non-anxious presence [] Spiritual/emotional support [] Crisis/trauma care [] Spiritual counseling [] Bereavement support [] Provided bereavement packet [] Provided Bible/devotional materials [] Provided toy/stuffed animal, coloring book to patient or family member [] Provided Communion [] Anointing/[place] [] Salvation [] Completed spiritual assessment [] Other: Impact on Illness or Injury [] Angry [] Fearful [] Anxious [] Often cries [] Exhaustion [] Unable to work [] Unable to attend orthodoxy [] Unable to walk/stand [] Unable to read [] Unable to drive [] Unable to eat/drink [] Unable to sleep [] Unable to be with family [] Patient intubated [] Other: Summary Time spent with patient
--- NOTE | 2024-05-07 10:20 | PC.SOCIAL ---
IMM Update Pg. 2 of IMM updated. Initialed, dated, and timed. Copy provided at bedside.
[2024-05-07 10:47] LABS: Basophils # 0.1 10^3/uL (0.0-0.1); Basophils % 0.8 %; Eosinophils # 0.1 10^3/uL (0.0-0.8); Eosinophils % 1.7 %; Hematocrit 27.5 % (37-53); Lymphocytes # 1.2 10^3/uL (0.8-4.8); Lymphocytes % 15.8 %; Mean Corpuscular HGB Conc 32.4 g/dL (30-55); Mean Corpuscular Hemoglobin 34.1 pg (27-33); Mean Corpuscular Volume 105.4 fl (82-101); Mean Platelet Volume 9.8 fL (7.4-10.4); Monocytes # 0.9 10^3/uL (0.2-0.9); Monocytes % 12.5 %; Neutrophils # 5.15 10^3/uL (1.8-7.7); Neutrophils % 68.7 %; Nucleated Red Blood Cells % 0.3 %; Platelet Count 270 10^3/cmm (157-399); Red Blood Count 2.61 10^6/uL (3.85-5.65); Red Cell Distribution Width 14.3 % (12.1-15.1); White Blood Count 7.51 10^3/uL (3.29-11.43)
[2024-05-07] MEDS: potassium chloride ER 20 mEq Tablet 40 MEQ PO (11:12)
[2024-05-07] MEDS: pantoprazole 40 mg SDV IVP (11:12)
[2024-05-07] MEDS: potassium chloride ER 20 mEq Tablet PO (13:00)
--- NOTE | 2024-05-07 13:36 | P.PN_ITS ---
<Statement entered by Basim Tejeda MD - 05/07/24 22:23> Patient was evaluated and cared for in conjunction with an advanced practice practitioner. I personally examined the patient and reviewed the chart and all pertinent data including imaging, telemetry, and laboratory results. I discussed the patient in detail with the advanced practice practitioner. Please see their note for complete H&P testing result and agreed upon plan of care for the patient. Subjective 2 Subjective: Patient seen this morning after procedure. Doing well without complaints. Medications: Reviewed: Yes Vitals/I&O/Wt Last Vital Signs Temp 98.1 F 05/07/24 11:28 Pulse 64 05/07/24 11:28 Resp 16 05/07/24 11:28 BP 94/58 05/07/24 11:28 Pulse Ox 94 05/07/24 11:28 O2 Del Method Room Air 05/07/24 11:28 05/06/24 05/07/24 05/07/24 22:59 06:59 14:59 Intake Total 240 / 240 500 / 500 Balance 240 / 240 500 / 500 Weight last 48 hrs Weight 162 lb Weight 165 lb 11.2 oz Weight 165 lb 12.8 oz Physical Exam 2 Narrative: At the time patient would not let me examine him due to he did not want to take his covers off but he states he is doing well without complaints. Data 05/07/24 10:27 05/07/24 03:03 A&P Assessment and plan (1) Preoperative clearance: Patient not having any active symptoms such as chest pain out of usual shortness of breath or heart failure symptoms or evidence of decompensated heart failure. (2) Cardiomyopathy: Awaiting echo to assess LV function. He may need to be on guideline medical therapy for heart failure such as Entresto and beta-ashli if ejection fraction remains low on echo Qualifiers: Cardiomyopathy type: ischemic Qualified Code(s): I25.5 - Ischemic cardiomyopathy (3) GI bleeding: As per medicine. (4) HTN (hypertension): Well-controlled (5) Atrial fibrillation: Sinus rhythm with PACs (6) Chronic systolic CHF (congestive heart failure): Well compensated continue current regimen continue diuretics may add Entresto Plan As above. There was question as to holding Plavix at this time due to active GI bleeding. Last intervention was August of 2022. May be held at this time, to be restarted as soon as possible when GI allows. Attestations 2 Medical Necessity Statement*: Per primary Coding Level of Care Code Acute Code for Chg Fwd Diagnoses Preoperative clearance Z01.818 Ischemic cardiomyopathy I25.5 Cardiomyopathy type: ischemic GI bleeding K92.2 HTN (hypertension) I10 Atrial fibrillation I48.91 Chronic systolic CHF (congestive heart failure) I50.22
--- NOTE | 2024-05-07 14:10 | PM.DCS ---
Discharge Providers Date of Admission: 05/05/24 13:33 Date of Discharge: May 07, 2024 Attending Provider at Admission: Gena Esposito MD Attending Provider at Discharge: Gena Esposito MD Primary Care Provider: Sachin Gallagher DO Diagnoses at Discharge Discharge Diagnosis (1) GI bleeding: Status: Resolved (2) Family history of colon cancer: Status: Acute Reason for Visit Reason for Visit: blood in stool Hospital Course Hospital Course Presented with hematochezia, melanotic stools. Hemoglobin remained stable however did have a drop from 12-9 with 12 being baseline. Underwent colonoscopy EGD. Friable colonic mass found. Biopsy obtained for pathology. Patient to follow-up with general surgery as an outpatient in 2 weeks to discuss biopsy results. He may require hemicolectomy versus total colectomy. This was discussed with the patient at discharge. He was asked to hold Plavix for another week. He is to follow-up with primary care doctor. He was asked to return to the hospital should he have any more hematochezia. Patient demonstrated understanding. Discharged home in stable condition. Physical Exam Narrative: General: No acute distress, AO x3, pleasant, hard of hearing Chest: Clear to auscultation bilaterally no wheezes or rhonchi CVS: S1-S2 no murmurs, no tachycardia, Abdomen: Soft, nontender, no organomegaly, bowel sounds present, morbidly obese Neuro: No focal deficits Extremity: No edema bilateral lower extremities at this time. Discharge Data Studies Completed and Pending Completed Studies During Hospitalization Category Date Time Status CT abdomen pelvis w con* [id number] Stat Cat Scan 05/05/24 09:36 Completed Pending at discharge Category Date Time Status CBC Auto Diff [Complete Blood Count w/Auto] Q8H Lab 05/07/24 17:16 Ordered CBC Auto Diff [Complete Blood Count w/Auto] Q8H Lab 05/08/24 01:16 Ordered Leukocyte Reduced RBC Routine Lab 05/05/24 09:37 Results Type and Screen Routine Lab 05/05/24 09:37 Results Pathology: Surgical [PTH] Routine Pth 05/07/24 08:58 Received CV. echo complete* [id number] Routine Ultrasound 05/07/24 06:00 Taken Radiology Impressions Abdomen/Pelvis CT 05/05/24 09:36 IMPRESSION: 1. Cholelithiasis. 2. Cortical scarring involving both kidneys. There are vascular calcifications and possibly bilateral renal calculi. No hydronephrosis is noted. No ureteral calculi are identified. Laboratory Results WBC 7.51 10^3/uL (3.29-11.43) 05/07/24 10:27 RBC 2.61 10^6/uL (3.85-5.65) L 05/07/24 10:27 Hgb 8.90 g/dL (11.27-16.99) L 05/07/24 10:27 Hct 27.5 % (37-53) L 05/07/24 10:27 MCV 105.4 fl (82-101) H 05/07/24 10:27 MCH 34.1 pg (27-33) H 05/07/24 10:27 MCHC 32.4 g/dL (30-55) 05/07/24 10:27 RDW 14.3 % (12.1-15.1) 05/07/24 10:27 Plt Count 270 10^3/cmm (157-399) 05/07/24 10:27 MPV 9.8 fL (7.4-10.4) 05/07/24 10:27 Neut % (Auto) 68.7 % 05/07/24 10:27 Lymph % (Auto) 15.8 % 05/07/24 10:27 [place] % (Auto) 12.5 % 05/07/24 10:27 Eos % (Auto) 1.7 % 05/07/24 10:27 Baso % (Auto) 0.8 % 05/07/24 10:27 Neut # (Auto) 5.15 10^3/uL (1.8-7.7) 05/07/24 10:27 Lymph # (Auto) 1.2 10^3/uL (0.8-4.8) 05/07/24 10:27 [place] # (Auto) 0.9 10^3/uL (0.2-0.9) 05/07/24 10:27 Eos # (Auto) 0.1 10^3/uL (0.0-0.8) 05/07/24 10:27 Baso # (Auto) 0.1 10^3/uL (0.0-0.1) 05/07/24 10:27 Nucleated RBC % (auto) 0.3 % 05/07/24 10:27 Nucleated RBCs # 0.0 /100WBC 05/07/24 10:27 PT 13.40 SECONDS (12.1-14.9) 05/05/24 09:37 INR 0.99 (0.8-1.2) 05/05/24 09:37 Sodium 135 mmol/L (136-145) L 05/07/24 03:03 Potassium 3.1 mmol/L (3.5-5.1) L 05/07/24 03:03 Chloride 101 mmol/L (98-107) 05/07/24 03:03 Carbon Dioxide 25 mmol/L (22-29) 05/07/24 03:03 Anion Gap 12.1 (5-19) 05/07/24 03:03 BUN 11 mg/dL (8-23) 05/07/24 03:03 Creatinine 1.1 mg/dL (0.7-1.2) 05/07/24 03:03 GFR Calculation Not Reportable 05/07/24 03:03 Glucose 106 mg/dL (65-115) 05/07/24 03:03 Calculated Osmolality 280 mOsm/kg (285-295) L 05/07/24 03:03 Calcium 8.2 mg/dL (8.5-10.5) L 05/07/24 03:03 Magnesium 2.5 mg/dL (1.7-2.3) H 05/07/24 03:03 Iron 29 ug/dL (59-158) L 05/05/24 16:36 TIBC 273 mcg/dl 05/05/24 16:36 % Saturation 10.6 % (20-50) L 05/05/24 16:36 Unsat Iron Binding 244 ug/dL (112-347) 05/05/24 16:36 Ferritin 53 ng/mL (30-400) 05/05/24 16:36 Total Bilirubin 0.8 mg/dL (0.15-1.2) 05/05/24 09:37 AST 31 U/L (0-40) 05/05/24 09:37 ALT 23 U/L (0-41) 05/05/24 09:37 Alkaline Phosphatase 89 U/L (40-130) 05/05/24 09:37 NT-Pro-B Natriuret Pep 501 pg/mL (0-450) H 05/05/24 18:14 Total Protein 5.9 g/dL (6.6-8.7) L 05/05/24 09:37 Albumin 3.8 g/dL (3.5-5.2) 05/05/24 09:37 Globulin 2.1 g/dL (1.3-4.6) 05/05/24 09:37 Blood Type O Positive 05/05/24 09:37 Rho(D) Type Rh positive 05/05/24 09:37 Antibody Screen Negative 05/05/24 09:37 Crossmatch See Detail 05/05/24 09:37 Vitals Last Vital Signs Temp 98.1 F 05/07/24 11:28 Pulse 64 05/07/24 11:28 Resp 16 05/07/24 11:28 BP 121/79 05/07/24 13:41 Pulse Ox 94 05/07/24 11:28 O2 Del Method Room Air 05/07/24 11:28 Discharge Plan Discharge Patient Disposition: Home Condition: Stable Prescriptions: Continued (DME) L3221 orthopedic shoes See Rx Instructions .Route .MEDSUPPLY Qty: 1 0RF Rx Instructions: As directed to the shoe rene metolazone 2.5 mg tablet 2.5 mg PO DAILY Qty: 90 3RF potassium chloride 20 mEq tablet extended release See Rx Instructions .ROUTE .COMPLEX Qty: 180 2RF Dose Instruction: TAKE 1 TABLET BY MOUTH TWICE DAILY; HOLD IF YOU DO NOT TAKE LASIX Rx Instructions: TAKE 1 TABLET BY MOUTH TWICE DAILY; HOLD IF YOU DO NOT TAKE LASIX acetaminophen [Tylenol] 325 mg Tablet 650 mg PO Q6H PRN (Reason: Pain/fever) amiodarone [Pacerone] 200 mg Tablet 200 mg PO DAILY Qty: 30 0RF tamsulosin 0.4 mg Capsule 0.4 mg PO QPM Qty: 30 0RF atorvastatin 80 mg tablet 40 mg PO QPM albuterol sulfate 90 mcg/actuation HFA aerosol inhaler 2 inh INHALATION Q6H PRN (Reason: shortness of breath or wheezing) Qty: 8 0RF folic acid 1 mg Tablet 1 mg PO DAILY furosemide 40 mg tablet 40 mg PO BID Held clopidogrel 75 mg Tablet 75 mg PO DAILY Qty: 30 0RF Hold Instructions: see pcp Discharge Orders: Discharge Order (Routine); Ordered 12/09/24 Ordered By: Gena Esposito Referrals: Sai Gibbs DO [Physician] - 2 weeks (We have notified your physician's clinic of the need for a follow-up appointment to be scheduled. If you have not heard from them within the next 2 business days, please call them directly. ) Froy Johnson MD [Hospitalist] - 2 weeks (We have notified your physician's clinic of the need for a follow-up appointment to be scheduled. If you have not heard from them within the next 2 business days, please call them directly. ) Sachin Gallagher DO [Emergency Department] - 05/14/24 10:30 am Discharge Diet: Cardiac Discharge Activity: Resume usual activity Patient Instructions: Gastrointestinal Bleeding (DC), GI Post Discharge Instructions w/ Anesthesia, Opioid Safety Discharge Attestations Time Spent in Discharge Care*: greater than 30 min Status at Discharge: Cognitive status at discharge: cognitively intact, Behavioral status at discharge: cooperative, Quality Metrics Clinical Quality Measures [ No reported AMI, CVA or VTE this stay] Coding Level of Care Code Acute Code for Chg Fwd Diagnoses GI bleeding K92.2 Family history of colon cancer Z80.0
== END 2024-05-07 16:47 | disposition home or self-care (01) | DRG 378 ==
LOC: ER 14:31 → MEDSURG 14:38
PROVIDERS: Surgery; Admitting Provider Internal Medicine; Emergency Provider Family Medicine; PCP Nurse Practitioner Family; Visit Provider Internal Medicine
PROC: 0DJD8ZZ Inspection of Lower Intestinal Tract, Via Natural or Artificial Opening Endoscopic (ICD-10-PCS; CPT 45378; principal; 2024-05-07 07:45)
PROC: 0DJ08ZZ Inspection of Upper Intestinal Tract, Via Natural or Artificial Opening Endoscopic (ICD-10-PCS; CPT 43235; 2024-05-07 07:45)
DX: K92.1 Melena (principal); E87.1 Hypo-osmolality and hyponatremia; I50.22 Chronic systolic (congestive) heart failure; N17.9 Acute kidney failure, unspecified; I42.9 Cardiomyopathy, unspecified; I48.91 Unspecified atrial fibrillation; I25.10 Atherosclerotic heart disease of native coronary artery without angina pectoris; J44.9 Chronic obstructive pulmonary disease, unspecified; F10.20 Alcohol dependence, uncomplicated; R19.7 Diarrhea, unspecified; I11.0 Hypertensive heart disease with heart failure; I73.9 Peripheral vascular disease, unspecified; D12.2 Benign neoplasm of ascending colon; D12.4 Benign neoplasm of descending colon; D12.3 Benign neoplasm of transverse colon; N40.0 Benign prostatic hyperplasia without lower urinary tract symptoms; Z80.0 Family history of malignant neoplasm of digestive organs; Z89.422 Acquired absence of other left toe(s); Z95.5 Presence of coronary angioplasty implant and graft; Z79.02 Long term (current) use of antithrombotics/antiplatelets; Z85.828 Personal history of other malignant neoplasm of skin; Z85.21 Personal history of malignant neoplasm of larynx; Z87.891 Personal history of nicotine dependence
CPT/HCPCS: 36415; 43239; 45380; 45381; 74177; 80048; 80053; 82728; 83540; 83550; 83735; 83880; 85025; 85610; 86850; 86900; 86920; 88305; 93306; 96374; 96375; 99285; J2270; J2371; J2470; J2704; J7040

== ENCOUNTER 2024-05-17 07:18 | Outpatient (CLI) | payer OTHER, SELFPAY ==
--- NOTE | 2024-05-17 07:23 | US_ITS ---
WS: [id number] RIGHT UPPER QUADRANT ULTRASOUND HISTORY: LIVER SCREENING COMPARISON: 10/04/2022 Liver: 14.7 cm in length. Normal size liver and echogenicity. No bile duct dilatation or mass. Portal Vein: Normal hepatopetal flow with monophasic waveform. Gallbladder: Numerous stones within the gallbladder. No wall thickening or edema noted. CBD: 0.3 cm Pancreas: Obscured by bowel gas. Right kidney: 9.3 cm in length. Low normal size kidney with mild diffuse cortical thinning. No mass o r obstruction. Aorta and IVC: Unremarkable abdominal aorta and IVC. No ascites. US/US abdomen limited [id number] IMPRESSION: 1. Cholelithiasis without acute cholecystitis. Numerous stones within the gall bladder. 2. No hepatobiliary duct dilatation.
== END 2024-05-17 07:19 | disposition home or self-care (01) ==
LOC: RAD 07:19
PROVIDERS: PCP Nurse Practitioner Family; Visit Provider Nurse Practitioner Family
DX: Z01.89 Encounter for other specified special examinations (principal); K80.20 Calculus of gallbladder without cholecystitis without obstruction
CPT/HCPCS: 76705

== ENCOUNTER → 2024-06-01 07:50 | Outpatient (BNVA) | payer OTHER, SELFPAY | PROVIDERS: PCP Nurse Practitioner Family; Visit Provider Nurse Practitioner | DX: M70.61 Trochanteric bursitis, right hip (principal); Z71.89 Other specified counseling | CPT/HCPCS: 20610; J1100; J2795; J3301 ==

== ENCOUNTER 2024-06-04 07:45 | Oncology outpatient (recurring) (ONCR) | payer OTHER, SELFPAY | END 2024-06-29 23:59 | disposition home or self-care (01) | PROVIDERS: PCP Nurse Practitioner Family; Visit Provider Internal Medicine Medical Oncology | DX: D37.4 Neoplasm of uncertain behavior of colon (principal) | CPT/HCPCS: 99205 ==

== ENCOUNTER 2024-06-21 16:23 | Inpatient (IN) | payer OTHER, MEDICARE, SELFPAY ==
[2024-06-21] VITALS (12 sets, daily range): BP systolic 102–138; BP diastolic 58–78; PULSE 75–106; RESP 18–34; TEMP 36.3–36.9; O2SAT 90–99; BMI 25.1
--- NOTE | 2024-06-21 16:28 | XRR_ITS ---
PROCEDURE INFORMATION: Exam: XR Chest Exam date and time: 06/21/2024 4:52 PM Age: 84 years old Clinical indication: Dyspnea; Additional info: SOB TECHNIQUE: Imaging protocol: Radiologic exam of the chest. Views: 1 view. COMPARISON: CR XR chest 1V portable [id number] 01/21/2024 12:01 PM FINDINGS: Lungs: Right greater than left infrahilar opacities reflecting infiltrates. Remaining lungs are clear. Pleural spaces: Unremarkable. No pleural effusion. No pneumothorax. Heart/Mediastinum: Unremarkable. No cardiomegaly. Bones/joints: Unremarkable. XR/XR chest 1V portable [id number] IMPRESSION: As above.
[2024-06-21] MEDS: ipratropium-albuterol 3 mL Neb INHALATION ×2 (16:59→21:32)
[2024-06-21] MEDS: methylPREDNISolone sod succ 125 mg/2 mL INJ 80 MG IVP (17:01)
[2024-06-21 17:09] LABS: Basophils # 0.1 10^3/uL (0.0-0.1); Basophils % 0.4 %; Eosinophils % 0.1 %; Hematocrit 33.6 % (37-53); Lymphocytes # 1.2 10^3/uL (0.8-4.8); Lymphocytes % 4.2 %; Mean Corpuscular HGB Conc 30.1 g/dL (30-55); Mean Corpuscular Hemoglobin 26.7 pg (27-33); Mean Corpuscular Volume 88.9 fl (82-101); Mean Platelet Volume 9.1 fL (7.4-10.4); Monocytes # 1.1 10^3/uL (0.2-0.9); Monocytes % 3.9 %; Neutrophils % 90.7 %; Nucleated Red Blood Cells # 0.1 /100WBC; Nucleated Red Blood Cells % 0.4 %; Platelet Count 479 10^3/cmm (157-399); Red Blood Count 3.78 10^6/uL (3.85-5.65); Red Cell Distribution Width 21.1 % (12.1-15.1); White Blood Count 27.36 10^3/uL (3.29-11.43)
--- NOTE | 2024-06-21 17:10 | ECG_ITS ---
[employer] Interactive Test Date: 2024-06-21 Pat Name: Reginald Pelaez Department: Room: Gender: Male Processing Supervisor: : 1940 Requested By: Dominic Ramsey Order Number: [id number] Marcella MD: Rober Marx M.D. Measurements Intervals [place] Rate: 100 P: 42 VA: 187 QRS: 69 QRSD: 110 T: 53 QT: 358 QTc: 462 Interpretive Statements SINUS TACHYCARDIA. SIGNIFICANT BASELINE ARTIFACT Compared to ECG 01/21/2024 13:57:45 Ventricular premature complex(es) no longer present Intraventricular conduction delay no longer present Myocardial infarct finding no longer present Electronically Signed On 06-22-2024 08:59:10 [employer] by Rober Marx M.D. [email or web address]
--- NOTE | 2024-06-21 17:23 | ED_ITS ---
HPI - SOB/Dyspnea 2 General: Chief Complaint: Shortness of Breath/Dyspnea Stated Complaint: sob Time Seen by Provider: 06/21/24 16:43 History of Present Illness: HPI Narrative: 84-year-old male presents with chronic s hortness of breath. He reports he has been out of his inhaler for couple weeks patient reports that his shortness of breath got a lot worse yesterday. Increased cough. Patient denies any fever or chills. Associated symptoms: Deny abdominal pain, chest pain, nausea, palpitations or vomiting Related Data Home Medications Medication Instructions Recorded Confirmed folic acid 1 mg tablet 1 mg PO DAILY 08/03/22 06/04/24 acetaminophen 325 mg tablet 650 mg PO Q6H PRN Pain/fever 08/19/22 06/04/24 (Tylenol) atorvastatin 80 mg tablet 40 mg PO QPM 12/05/23 06/04/24 furosemide 40 mg tablet 40 mg PO BID 05/05/24 06/04/24 Previous Rx's Medication Instructions Recorded amiodarone 200 mg tablet (Pacerone) 200 mg PO DAILY #30 tabs 09/02/22 tamsulosin 0.4 mg capsule 0.4 mg PO QPM #30 caps 09/02/22 clopidogrel 75 mg tablet 75 mg PO DAILY #30 tabs 09/04/22 metolazone 2.5 mg tablet 2.5 mg PO DAILY #90 tabs 10/26/22 albuterol sulfate 90 mcg/actuation 2 inh inhalation Q6H PRN shortness 12/05/23 aerosol inhaler of breath or wheezing #8 grams potassium chloride 20 mEq See Rx Instructions .Route 01/03/24 tablet,extended release .COMPLEX #180 tabs L3221 orthopedic shoes #1 ea 04/10/24 Allergies Allergy/AdvReac Type Severity Reaction Status Date / Time No Known Allergies Allergy Verified 06/21/24 16:34 Review of Systems 2 Const: Reports: fatigue and malaise Card: Denies: chest pain or palpitations Resp: Reports: dyspnea, non-productive cough and wheezing GI: Denies: abdominal pain, nausea or vomiting : Denies: flank pain PFSH ED 2 PFSH: Medical History Cardiomyopathy Chronic systolic CHF (congestive heart failure) 08/19/22: LVEF 15% Atrial fibrillation intermittent CAD (coronary artery disease) BPH loc w urin obs/LUTS Chronic decreased force of stream without RUTIs gross hematuria (previously prior to catheterization placement) or retention. 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 8.0 x 19 mm Omnilink stent was placed. Left Proximal Superficial Femoral Artery with 80-90 % stenosis treated with AB ARMADA 35 OTW [id number]. 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 History of hip surgery right hip fracture repair Family History Other No pertinent family history Social History Smoking and tobacco/nicotine status: former use of tobacco/nicotine Alcohol intake: current Alcohol type: hard liquor Substance/Drug Use: current Substance/Drug use frequency: Special occassions/opportunity only Lives independently: Yes Household members: none Housing: House Physical Exam 2 Const: COMMON NORMALS: patient oriented x3 Resp: EFFORT & INSPECTION: Yes tachypneic AUSCULTATION: wheezes and diminished lung sounds Cardio: RATE: tachycardic Neuro: COMMON NORMALS: patient oriented x3 Course 2 Vital Signs: Vital signs: Vital Signs Temperature 97.9 F 06/21/24 16:32 Pulse Rate 95 06/21/24 19:45 Respiratory Rate 18 06/21/24 16:56 Blood Pressure 135/58 06/21/24 19:45 Pulse Oximetry 91 06/21/24 19:45 Oxygen Delivery Me thod Nasal Cannula 06/21/24 19:45 Oxygen Flow Rate 5 06/21/24 19:45 MDM - SOB/Dyspnea Medical Decision Making Patient diagnostic studies were ordered reviewed interpreted by me. He does have a elevated white count along with a pneumonia on chest x-ray. He did have significant improvement in his symptoms following breathing treatment and steroids. Patient likely has a COPD exacerbation with underlying early pneumonia. Patient was treated with azithromycin and Rocephin in the ER. Patient's initial lactic was 4.4 that improved to 2.3 on repeat. I suspect this is likely due to his work of breathing when he initially presented. Patient to be admitted to for further inpatient management. Lab Data 06/21/24 16:52 06/21/24 16:52 Labs/Radiology: Radiology Impressions Chest X-Ray 06/21/24 16:28 IMPRESSION: As above. Laboratory Results WBC 27.36 10^3/uL (3.29-11.43) H 06/21/24 16:52 RBC 3.78 10^6/uL (3.85-5.65) L 06/21/24 16:52 Hgb 10.10 g/dL (11.27-16.99) L 06/21/24 16:52 Hct 33.6 % (37-53) L 06/21/24 16:52 MCV 88.9 fl (82-101) 06/21/24 16:52 MCH 26.7 pg (27-33) L 06/21/24 16:52 MCHC 30.1 g/dL (30-55) 06/21/24 16:52 RDW 21.1 % (12.1-15.1) H 06/21/24 16:52 Plt Count 479 10^3/cmm (157-399) H 06/21/24 16:52 MPV 9.1 fL (7.4-10.4) 06/21/24 16:52 Neut % (Auto) 90.7 % 06/21/24 16:52 Lymph % (Auto) 4.2 % 06/21/24 16:52 [place] % (Auto) 3.9 % 06/21/24 16:52 Eos % (Auto) 0.1 % 06/21/24 16:52 Baso % (Auto) 0.4 % 06/21/24 16:52 Neut # (Auto) 24.80 10^3/uL (1.8-7.7) H 06/21/24 16:52 Lymph # (Auto) 1.2 10^3/uL (0.8-4.8) 06/21/24 16:52 [place] # (Auto) 1.1 10^3/uL (0.2-0.9) H 06/21/24 16:52 Eos # (Auto) 0.0 10^3/uL (0.0-0.8) 06/21/24 16:52 Baso # (Auto) 0.1 10^3/uL (0.0-0.1) 06/21/24 16:52 Nucleated RBC % (auto) 0.4 % 06/21/24 16:52 Nucleated RBCs # 0.1 /100WBC 06/21/24 16:52 PT 12.80 SECONDS (12.1-14.9) 06/21/24 17:00 INR 0.90 (0.8-1.2) 06/21/24 17:00 APTT 26.7 SECONDS (23.9-36.7) 06/21/24 17:00 Sodium 138 mmol/L (136-145) 06/21/24 16:52 Potassium 4.5 mmol/L (3.5-5.1) 06/21/24 16:52 Chloride 101 mmol/L (98-107) 06/21/24 16:52 Carbon Dioxide 22 mmol/L (22-29) 06/21/24 16:52 Anion Gap 19.5 (5-19) H 06/21/24 16:52 BUN 11 mg/dL (8-23) 06/21/24 16:52 Creatinine 0.9 mg/dL (0.7-1.2) 06/21/24 16:52 GFR Calculation Not Reportable 06/21/24 16:52 Glucose 90 mg/dL (65-115) 06/21/24 16:52 Calculated Osmolality 285 mOsm/kg (285-295) 06/21/24 16:52 Lactic Acid 4.4 mmol/L (0.5-2.2) H* 06/21/24 16:52 Lactic Acid (Sepsis) 2.3 mmol/L (0.5-2.2) H 06/21/24 18:45 Calcium 8.6 mg/dL (8.5-10.5) 06/21/24 16:52 Magnesium 1.8 mg/dL (1.7-2.3) 06/21/24 16:52 Total Bilirubin 0.6 mg/dL (0.15-1.2) 06/21/24 16:52 AST 23 U/L (0-40) 06/21/24 16:52 ALT 15 U/L (0-41) 06/21/24 16:52 Alkaline Phosphatase 121 U/L (40-130) 06/21/24 16:52 Total Protein 7.2 g/dL (6.6-8.7) 06/21/24 16:52 Albumin 3.9 g/dL (3.5-5.2) 06/21/24 16:52 Globulin 3.3 g/dL (1.3-4.6) 06/21/24 16:52 Coronavirus (PCR) Negative (Negative) 06/21/24 17:04 Influenza A (PCR) Negative (Negative) 06/21/24 17:04 Influenza Type B (PCR) Negative (Negative) 06/21/24 17:04 RSV (PCR) Negative (Negative) 06/21/24 17:04 All radiology interpretation(s) finalized by discharge Discharge Plan Discharge Patient Disposition: Admitted As Inpatient Admit Provider: Duyen Fontenot Clinical Impression: Acute exacerbation of chronic obstructive airways disease, Community acquired pneumonia Condition: Stable Coding Level of Care Code ED Nanny Caregiver for Jorge Betancourt
[2024-06-21 17:31] LABS: Alanine Aminotransferase 15 U/L (0-41); Albumin Level 3.9 g/dL (3.5-5.2); Alkaline Phosphatase 121 U/L (40-130); Anion Gap 19.5 (5-19); Aspartate Amino Transferase 23 U/L (0-40); Blood Urea Nitrogen 11 mg/dL (8-23); Calcium 8.6 mg/dL (8.5-10.5); Carbon Dioxide 22 mmol/L (22-29); Chloride 101 mmol/L (98-107); Creatinine Clr Calc Pharmacy 65.5762; Globulin 3.3 g/dL (1.3-4.6); Glucose 90 mg/dL (65-115); Magnesium 1.8 mg/dL (1.7-2.3); Osmolality Calculated 285 mOsm/kg (285-295); Potassium 4.5 mmol/L (3.5-5.1); Sodium 138 mmol/L (136-145); Total Bilirubin 0.6 mg/dL (0.15-1.2); Total Protein 7.2 g/dL (6.6-8.7)
[2024-06-21 17:35] LABS: Lactic Sepsis W/Reflex 4.4 mmol/L (0.5-2.2)
[2024-06-21 17:57] LABS: Covid PCR NEGATIVE (Negative); Influenza A NEGATIVE (Negative); Influenza B NEGATIVE (Negative); Respiratory Syncytial Virus Ce NEGATIVE (Negative)
[2024-06-21] MEDS: cefTRIAXone 1,000 mg SDV 1000 MG IVP (18:00)
[2024-06-21] MEDS: sodium chloride 0.9% 1,000 ML 999 ML IV (18:00)
[2024-06-21] MEDS: AZITHROMYCIN ADD-Vantage 500 MG in 0.9% NaCl ADD-Vantage 250 ML 250 MG IV (18:00)
[2024-06-21 18:11] LABS: Reflex Lactate Order REFLEX LACTIC ORDERD
[2024-06-21 19:08] LABS: Lactic Acid level (Lactate) 2.3 mmol/L (0.5-2.2)
--- NOTE | 2024-06-21 19:31 | PM.HP ---
Providers/Chief Complaint Primary Care Provider: Madison Park APRN Chief Complaint: sob History of Present Illness Reginald Pelaez is a 84 yo man w/ Emphysema, CAD s/p JORDAN x 1 to the RCA, Paroxysmal Afib, chronic HFrEF (EF of 40% on 04/2024) w/ grade II diastolic dysfxn, moderate valve stenosis, who presents to the ED on 06/21/2024 w/ dsypnea that began earlier in the day. He states that he has had dyspnea w/ exertion in the last 5-6 months, such that he becomes dyspneic after walking approximately 30feet. However, at noon, while sitting at home watching TV, he felt more dyspneic than usual. He attempted to fix himself a scotch and water hoping that it would help him feel better, but his dyspnea worsened, so he called his neighbor to take him to the hospital. In addition to dyspnea, he complains of chills and endorses rigors. He endorses a minimal dry cough, wheezing. He denies fevers, chest tightness, CP, papitations, syncope, falls, light headedness/dizziness, visual disturbances. He endorses dizziness when he gets up too fast. In the ED, his vital signs were significant for tachycardia of 106bpm and tachypnea up to 34. His lab was significant for leukocytosis of 27.4, and a lactic acid of 4.4. His CXR showed R>L infrahilar infiltrates. His EKG showed sinus tachycardia. He was given 1L NS bolus, 80 mg IVP x 1 of methylprednisolone, 1 g of ceftriaxone and 500 mg of azithromycin, and admitted for further management. He was placed on 5 L of oxygen for his acute hypoxic respiratory failure. Review of Systems Const: Reports: change in appetite (poor appetite) and malaise; Denies: fever(s) or chills Eyes: Denies: change in vision ENMT: Reports: nasal discharge and other (sore throat); Denies: odynophagia or nasal congestion Card: Reports: other; Denies: chest pain or palpitations Resp: Reports: dyspnea and wheezing; Denies: non-productive cough GI: Reports: constipation; Denies: abdominal pain, nausea, vomiting or diarrhea : Reports: dysuria; Denies: difficulty urinating, urinary frequency, urinary urgency or hematuria Musc: Reports: other (myalgia); Denies: joint pain Neuro: Reports: dizziness (chronic); Denies: headache(s) Psych: Denies: anxiety, depression, suicidal ideation or homicidal ideation Endo: Reports: cold intolerance; Denies: heat intolerance Brien/Lymph: Reports: easy bruising (on anticoagulation ) and easy bleeding (on Anticoagulation ) Medications/Allergies Home Medications Medication Instructions Recorded Confirmed Last Taken Type folic acid 1 mg tablet 1 mg PO DAILY 08/03/22 06/04/24 12/05/23 History acetaminophen 325 mg tablet 650 mg PO Q6H PRN Pain/fever 08/19/22 06/04/24 Unknown History (Tylenol) amiodarone 200 mg tablet (Pacerone) 200 mg PO DAILY #30 tabs 09/02/22 06/04/24 12/05/23 Rx tamsulosin 0.4 mg capsule 0.4 mg PO QPM #30 caps 09/02/22 06/04/24 09/08/22 Rx clopidogrel 75 mg tablet 75 mg PO DAILY #30 tabs 09/04/22 06/04/24 12/05/23 Rx metolazone 2.5 mg tablet 2.5 mg PO DAILY #90 tabs 10/26/22 06/04/24 Unknown Rx albuterol sulfate 90 mcg/actuation 2 inh inhalation Q6H PRN shortness 12/05/23 06/04/24 Unknown Rx aerosol inhaler of breath or wheezing #8 grams atorvastatin 80 mg tablet 40 mg PO QPM 12/05/23 06/04/24 12/04/23 History potassium chloride 20 mEq See Rx Instructions .Route 01/03/24 06/04/24 Unknown Rx tablet,extended release .COMPLEX #180 tabs L3221 orthopedic shoes #1 ea 04/10/24 06/04/24 Unknown Rx furosemide 40 mg tablet 40 mg PO BID 05/05/24 06/04/24 Unknown History Allergies Allergy/AdvReac Type Severity Reaction Status Date / Time No Known Allergies Allergy Verified 06/21/24 16:34 PFSH Acute PFSH: Medical History (Updated 06/22/24 @ 00:41 by Duyen Fontenot MD) Paroxysmal atrial fibrillation Cardiomyopathy Chronic systolic CHF (congestive heart failure) 08/19/22: LVEF 15% CAD (coronary artery disease) BPH loc w urin obs/LUTS Chronic decreased force of stream without RUTIs gross hematuria (previously prior to catheterization placement) or retention. 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, initial treatment with imiquimod, follows with Dr Gil Chronic alcohol use History of smoking Nicotine dependence, chewing tobacco, with other nicotine-induced disorders COPD (chronic obstructive pulmonary disease) Compression fx, lumbar spine 07/2022 L1, L3, L4 Lumbar disc disease with radiculopathy Amputated toe of left foot discharged from wound care 07/05/22, follows with Dr Brunner PAC (premature atrial contraction) Chronic hyponatremia Severe peripheral arterial disease Malignant neoplasm of glottis Claudication HTN (hypertension) History of nonmelanoma skin cancer Surgical History Status post kyphoplasty (08/06/22) L1, L3, L4 S/P right coronary artery (RCA) stent placement (08/30/22) S/P peripheral artery angioplasty with stent placement 12/2021 Left common/External Iliac Artery with 80% stenosis treated with AB ARMADA 35OTW [id number]. 8.0 x 19 mm Omnilink stent was placed. Left Proximal Superficial Femoral Artery with 80-90 % stenosis treated with AB ARMADA 35 OTW [id number]. 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 History of hip surgery right hip fracture repair Family History Other No pertinent family history Social History Smoking and tobacco/nicotine status: former use of tobacco/nicotine Alcohol intake: current Alcohol type: hard liquor Substance/Drug Use: current Substance/Drug use frequency: Special occassions/opportunity only Lives independently: Yes Household members: none Housing: House Vitals/I&O/Wt Last Vital Signs Temp 97.9 F 06/21/24 16:32 Pulse 92 06/21/24 18:49 Resp 18 06/21/24 16:56 BP 121/78 06/21/24 18:49 Pulse Ox 94 06/21/24 18:49 O2 Del Method Nasal Cannula 06/21/24 18:49 O2 Flow Rate 5 06/21/24 18:49 06/21/24 06/21/24 06/21/24 06:59 14:59 22:59 Intake Total 250 / 250 Balance 250 / 250 Weight last 48 hrs Weight 77.111 kg Physical Exam Const: GENERAL APPEARANCE: cooperative and comfortable ORIENTATION/CONSCIOUSNESS: Yes awake, Yes oriented to person, Yes oriented to place and Yes oriented to time HENMT: HEAD & SCALP: normocephalic and atraumatic NOSE: Normal external nose present EXTERNAL EAR: Yes external ears normal MOUTH: Normal oral and palatal mucosa present OTHER: Mildly jaundiced oropharynx Eye: OTHER: PERRL, EOMI, mild jaundice bilaterally Neck/C-Spine: GENERAL: Yes normal visual inspection and Yes trachea midline THYROID: Thyroid normal CAROTIDS: No bruit CERVICAL SPINE: Yes cervical ROM normal OTHER: . Lymph: OTHER: No cervical or supraclavicular LAD Resp: OTHER: Decreased breath sounds in the R> L lower lung bases. No wheezes, rales or rhonchi appreciated Cardio: OTHER: RRR, no m/r/g or clicks. GI: OTHER: BS+, NT, ND, no guarding, no rigidity, no rebound tenderness, no hepatosplenomegaly. Extremity: OTHER: R. foot and ankle chronically bigger than the L. Foot and ankle. R. foot w/ 2+ pitting edema to the mid tibia. Neuro: CRANIAL NERVES: Yes CN normal except as noted SPEECH: speech normal SENSORY EXAM: No sensory level loss detected MOTOR EXAM: 5/5 motor strength present throughout and Normal motor muscle tone present throughout Psych: APPEARANCE: Yes grossly normal ATTITUDE: Yes calm and Yes engaged ACTIVITY/MOTOR BEHAVIOR: Yes appropriate eye contact SPEECH: Yes normal speech MOOD & AFFECT: Yes euthymic mood THOUGHT PROCESS: Normal thought process present THOUGHT CONTENT: Yes Normal thought content present ATTENTION/CONCENTRATION: Yes attention grossly intact MEMORY/COGNITION: Yes memory grossly intact Skin: NARRATIVE SKIN EXAM: L. 2nd digit amputation GENERAL SKIN EXAM: no rashes or lesions noted Data 06/21/24 16:52 06/21/24 16:52 A&P Assessment and plan (1) Acute hypoxic respiratory failure: (2) HTN (hypertension): (3) Chronic systolic CHF (congestive heart failure): (4) S/P right coronary artery (RCA) stent placement: (5) Acute exacerbation of chronic obstructive airways disease: (6) Community acquired pneumonia: (7) Severe sepsis: (8) Lactic acidosis: Luan Pelaez is a 84 yo man w/ Emphysema, CAD s/p JORDAN x 1 to the RCA in 08/30/2022, severe PAD s/p L. 2nd digit amputation and L. external iliac stent, Paroxysmal Afib, chronic HFrEF (EF of 40% w/ grade II diastolic dysfxn, moderate aortic valve stenosis on 04/2024 ECHO) who presents to the ED on 06/21/2024 w/ dsypnea that began earlier in the day. #Acute hypoxic respiratory failure: weaned to 3L. Continue to wean as tolerated. The patient does not wear O2 at home. #Severe Sepsis: likely secondary to pneumonia #Likely Gram Negative Pneumonia - F/u BCx. Start Vanc/Cefepime/Azithromycin - R/o Aspiration w/ swallow study #Acute COPD exacerbation: Duonebs, Methylprednisolone, PPI, abx. #Lactic acidosis: likely secondary to hypoxia. #Alcohol use d/o: Start folic acid and thiamine. CIWA protocol. Monitor for DTs. #Paroxysmal Afib: Not on AC, but is on Plavix. Will continue. Resumed Amiodarone. started Full dose Lovenox. #CAD s/p JORDAN x 1 to the RCA in 08/30/2022 #Severe PAD s/p L. 2nd digit amputation and L. external iliac stent # chronic chronic HFrEF (EF of 40% w/ grade II diastolic dysfxn, moderate aortic valve stenosis on 04/2024 ECHO) #HTN #HLD - Hold his diuretics and anti-hypertensives for now. #Tobacco use d/o: Still chews tobacco. Brought it with him. #Chronic R. LE swelling: venous duplex US of the R. LE done in 01/2022 was negative for a DVT #BPH: Resume tamsulosin MPOA: In order of importance 1) First Cousins: [place], 2) Friend: Prabhu Sanon 3) Duglas Alvarado He has an appointment with the Medical And Scientific Illustrator at 8:30am on 06/22/2024. He is concerned and would like to contact the Medical And Scientific Illustrator's office to let them know that he is in the officed Attestations Medical Necessity Statement*: The patient is to be hospitalized for greater than 2 midnights for his acute hypoxic respiratory failure, severe sepsis secondary to pneumonia, acute COPD exacerbation. Time Spent in Patient Care: >70mins was spent on chart review, patient interview/exam, lab/image review, plan formulation and coordination of care. Diagnoses Acute hypoxic respiratory failure J96.01 HTN (hypertension) I10 Chronic systolic CHF (congestive heart failure) I50.22 S/P right coronary artery (RCA) stent placement Z95.5 Acute exacerbation of chronic obstructive airways disease J44.1 Community acquired pneumonia J18.9 Severe sepsis A41.9; R65.20 Lactic acidosis E87.20
[2024-06-21 21:00] LABS: Partial Thromboplastin Time 26.7 SECONDS (23.9-36.7)
[2024-06-21] MEDS: pantoprazole DR 40 mg Tablet PO (21:45)
[2024-06-21] MEDS: metroNIDAZOLE IV 500 MG/100 ML PREMIX 100 MG IV (21:45)
[2024-06-21] MEDS: enoxaparin 40 mg/0.4 mL Syringe SUBCUT (21:45)
[2024-06-21] MEDS: magnesium hydroxide 30 mL UDC PO (23:53)
[2024-06-21] MEDS: vancomycin 1,500 MG/300 ML PIGGYBACK 200 MG IV (23:53)
[2024-06-22] VITALS (18 sets, daily range): BP systolic 110–133; BP diastolic 50–69; PULSE 71–110; RESP 16–22; TEMP 36.4–36.8; O2SAT 95–98
[2024-06-22 00:16] LABS: Rapid Strep A Test Negative (Negative)
[2024-06-22] MEDS: ipratropium-albuterol 3 mL Neb INHALATION ×6 (00:30→23:36)
[2024-06-22] MEDS: thiamine 100 mg Tablet 500 MG PO (00:43)
[2024-06-22] MEDS: thiamine 100 mg/mL 2mL SDV IM (00:43)
[2024-06-22] MEDS: metroNIDAZOLE IV 500 MG/100 ML PREMIX 100 MG IV ×2 (03:57→11:02)
[2024-06-22 04:45] LABS: Basophils # 0.1 10^3/uL (0.0-0.1); Basophils % 0.2 %; Hematocrit 26.9 % (37-53); Lymphocytes # 0.5 10^3/uL (0.8-4.8); Lymphocytes % 1.7 %; Mean Corpuscular HGB Conc 30.5 g/dL (30-55); Mean Corpuscular Hemoglobin 27.2 pg (27-33); Mean Corpuscular Volume 89.4 fl (82-101); Mean Platelet Volume 9.1 fL (7.4-10.4); Monocytes # 0.5 10^3/uL (0.2-0.9); Monocytes % 1.7 %; Neutrophils # 27.01 10^3/uL (1.8-7.7); Neutrophils % 95.3 %; Nucleated Red Blood Cells % 0.1 %; Platelet Count 367 10^3/cmm (157-399); Red Blood Count 3.01 10^6/uL (3.85-5.65); Red Cell Distribution Width 21.2 % (12.1-15.1); White Blood Count 28.35 10^3/uL (3.29-11.43)
--- NOTE | 2024-06-22 05:03 | PC.RESP ---
RT unavailable, in ER.
[2024-06-22 05:12] LABS: Alanine Aminotransferase 12 U/L (0-41); Albumin Level 3.3 g/dL (3.5-5.2); Alkaline Phosphatase 92 U/L (40-130); Anion Gap 18.7 (5-19); Aspartate Amino Transferase 17 U/L (0-40); Blood Urea Nitrogen 11 mg/dL (8-23); Calcium 7.8 mg/dL (8.5-10.5); Carbon Dioxide 20 mmol/L (22-29); Chloride 101 mmol/L (98-107); Creatinine Clr Calc Pharmacy 59.0185; Globulin 2.3 g/dL (1.3-4.6); Glucose 170 mg/dL (65-115); Magnesium 1.9 mg/dL (1.7-2.3); Osmolality Calculated 285 mOsm/kg (285-295); Phosphorus 2.6 mg/dL (2.5-4.5); Potassium 3.7 mmol/L (3.5-5.1); Sodium 136 mmol/L (136-145); Thyroid Stimulating Hormone 1.67 uIU/mL (0.27-4.20); Total Bilirubin 0.8 mg/dL (0.15-1.2); Total Protein 5.6 g/dL (6.6-8.7)
[2024-06-22] MEDS: pantoprazole DR 40 mg Tablet PO (06:12)
[2024-06-22] MEDS: cefepime 2,000 mg SDV 2000 MG IVP (06:12)
--- NOTE | 2024-06-22 06:59 | PHA.VACGOAL ---
Vancomycin Goal - Goal Vancomycin Goal:: 15-20 mg/L Vancomycin Indication:: Pneumonia (sepsis) - Therapy Current therapy:: Azithromycin, Cefepime Day of therpy:: Day [1]of [] . Actual body weight (kg): 77.111 kg - Data Labs: WBC 28.35 10^3/uL (3.29-11.43) H 06/22/24 03:54 RBC 3.01 10^6/uL (3.85-5.65) L 06/22/24 03:54 Hgb 8.20 g/dL (11.27-16.99) L 06/22/24 03:54 Hct 26.9 % (37-53) L 06/22/24 03:54 MCV 89.4 fl (82-101) 06/22/24 03:54 MCH 27.2 pg (27-33) 06/22/24 03:54 MCHC 30.5 g/dL (30-55) 06/22/24 03:54 RDW 21.2 % (12.1-15.1) H 06/22/24 03:54 Sodium 136 mmol/L (136-145) 06/22/24 03:54 Potassium 3.7 mmol/L (3.5-5.1) 06/22/24 03:54 Chloride 101 mmol/L (98-107) 06/22/24 03:54 Carbon Dioxide 20 mmol/L (22-29) L 06/22/24 03:54 Anion Gap 18.7 (5-19) 06/22/24 03:54 BUN 11 mg/dL (8-23) 06/22/24 03:54 Creatinine 1.0 mg/dL (0.7-1.2) 06/22/24 03:54 GFR Calculation Not Reportable 06/22/24 03:54 Treatment plan:: new consult Regimen:: New start vancomycin for pneumonia/sepsis. Received 1500 mg load dose at midnight. Started on maintenance dose of 1000 mg q12h. Pharmacy will continue to monitor daily.
[2024-06-22] MEDS: sennosides 8.6 mg Tablet 17.2 MG PO (08:29)
[2024-06-22] MEDS: multivitamin therapeutic Tablet 1 TAB PO (08:29)
[2024-06-22] MEDS: tamsulosin 0.4 mg Capsule PO (08:29)
[2024-06-22] MEDS: folic acid 1 mg Tablet PO (08:29)
[2024-06-22] MEDS: clopidogrel 75 mg Tablet PO (08:29)
[2024-06-22] MEDS: amiodarone 200 mg Tablet PO (08:29)
[2024-06-22] MEDS: methylPREDNISolone sod succ 125 mg/2 mL INJ 60 MG IVP (08:30)
[2024-06-22] MEDS: AZITHROMYCIN ADD-Vantage 500 MG in 0.9% NaCl ADD-Vantage 250 ML 250 MG IV (08:35)
--- NOTE | 2024-06-22 11:56 | P.PN_ITS ---
Subjective 2 Subjective: Admitted overnight. Today morning examination patient sitting up in chair. Nasal cannula out of his nose. Asking when can he go home. Denies any nausea, vomiting, headache. Admitted overnight for respiratory failure. Vitals/I&O/Wt Last Vital Signs Temp 97.7 F 06/22/24 08:00 Pulse 82 06/22/24 11:34 Resp 18 06/22/24 11:27 BP 133/64 06/22/24 08:00 Pulse Ox 98 06/22/24 11:27 O2 Del Method Nasal Cannula 06/22/24 11:27 O2 Flow Rate 2 06/22/24 11:27 06/21/24 06/22/24 06/22/24 22:59 06:59 14:59 Intake Total 1250 / 1250 620 / 1870 506 / 506 Balance 1250 / 1250 620 / 1870 506 / 506 Weight last 48 hrs Weight 77.111 kg Weight 77.111 kg Physical Exam 2 Const: GENERAL APPEARANCE: cooperative and comfortable O RIENTATION/CONSCIOUSNESS: Yes awake, Yes oriented to person, Yes oriented to place and Yes oriented to time HENMT: COMMON NORMALS: normocephalic, atraumatic, external ears normal and Normal external nose present HEAD & SCALP: normocephalic and atraumatic N OSE: Normal external nose present EXTERNAL EAR: Yes external ears normal M OUTH: Normal oral and palatal mucosa present OTHER: Mildly jaundiced oropharynx Eye: OTHER: PERRL, EOMI, mild jaundice bilaterally Neck/C-Spine: COMMON NORMALS: Thyroid normal GENERAL: Yes normal visual inspection and Yes trachea midline THYROID: Thyroid normal CAROTIDS: No bruit CERVICAL SPINE: Yes cervical ROM normal OTHER: . Lymph: OTHER: No cervical or supraclavicular LAD Resp: OTHER: Decreased breath sounds in the R> L lower lung bases. No wheezes, rales or rhonchi appreciated Cardio: OTHER: RRR, no m/r/g or clicks. GI: OTHER: BS+, NT, ND, no guarding, no rigidity, no rebound tenderness, no hepatosplenomegaly. Extremity: OTHER: R. foot and ankle chronically bigger than the L. Foot and ankle. R. foot w/ 2+ pitting edema to the mid tibia. Neuro: SENSORIUM/ORIENTATION: Yes oriented to person, Yes oriented to place and Yes oriented to time CRANIAL NERVES: Yes CN normal except as noted S PEECH: speech normal SENSORY EXAM: No sensory level loss detected MOTOR EXAM: 5/5 motor strength present throughout and Normal motor muscle tone present throughout Psych: COMMON NORMALS: Normal thought process present and speech normal A PPEARANCE: Yes grossly normal ATTITUDE: Yes calm and Yes engaged A CTIVITY/MOTOR BEHAVIOR: Yes appropriate eye contact SPEECH: Yes normal speech MOOD & AFFECT: Yes euthymic mood THOUGHT PROCESS: Normal thought process present THOUGHT CONTENT: Yes Normal thought content present A TTENTION/CONCENTRATION: Yes attention grossly intact MEMORY/COGNITION: Yes memory grossly intact Skin: COMMON NORMALS: no rashes or lesions noted NARRATIVE SKIN EXAM: L. 2nd digit amputation GENERAL SKIN EXAM: no rashes or lesions noted Data 06/22/24 03:54 06/22/24 03:54 Micro: Microbiology 06/21/24 19:50 Blood Culture - Preliminary Blood SPECIMEN COLLECTED 06/21/24 18:45 Blood Culture - Preliminary Blood SPECIMEN COLLECTED A&P Assessment and plan (1) Acute hypoxic respiratory failure: (2) Community acquired pneumonia: (3) Acute exacerbation of chronic obstructive airways disease: (4) Chronic systolic CHF (congestive heart failure): (5) HTN (hypertension): (6) S/P right coronary artery (RCA) stent placement: (7) Severe sepsis: (8) Lactic acidosis: Plan Reginald Pelaez is a 84 yo man w/ Emphysema, CAD s/p JORDAN x 1 to the RCA in 08/30/2022, severe PAD s/p L. 2nd digit amputation and L. external iliac stent, Paroxysmal Afib, chronic HFrEF (EF of 40% w/ grade II diastolic dysfxn, moderate aortic valve stenosis on 04/2024 ECHO) who presents to the ED on 06/21/2024 w/ dsypnea that began earlier in the day. #Acute hypoxic respiratory failure: Most likely in setting of bilateral lower lobe pneumonia right more than left, COPD exacerbation, mild congestive heart failure. Concern for aspiration pneumonitis. Patient is a chronic alcoholic. Oxygen supplementation keeping saturation over 88%. Pulmicort twice daily, DuoNeb every 6 hour Follow-up sputum culture. Modified barium swallow. Respiratory viral panel negative on admission. Follow-up blood culture. Check MRSA swab. Continue with azithromycin, vancomycin. Switch to Zosyn. If MRSA swab negative can discontinue vancomycin. Prednisone 40 mg oral daily. Incentive spirometry. Past history of chronic congestive systolic heart failure. No exacerbation for now. Last echocardiogram showed an EF of 40% with grade 2 diastolic dysfunction, moderate aortic valve stenosis. Continue with home dose of Lasix 40 mg twice daily. Fluid restriction to less than 1500 cc. #Alcohol use d/o: Start folic acid and thiamine. CIWA protocol. Monitor for DTs. #Paroxysmal Afib: Not on AC, but is on Plavix. Will continue. Resumed Amiodarone. #CAD s/p JORDAN x 1 to the RCA in 08/30/2022. No active chest pain. #Severe PAD s/p L. 2nd digit amputation and L. external iliac stent #HTN: Goal blood pressure less than 140/90 mmHg. Continue to monitor. #HLD #Tobacco use d/o: Still chews tobacco. Brought it with him. Counseled on detail to avoid smoking. Nicotine patch offered. #Chronic R. LE swelling: venous duplex US of the R. LE done in 01/2022 was negative for a DVT #BPH: Resume tamsulosin MPOA: In order of importance 1) First Cousins: Haja Fab, 2) Friend: Prabhu Sanon 3) Duglas Alvarado Full code Cardiac diet Protonix OPD prophylaxis Lovenox for DVT prophylaxis Attestations 2 Medical Necessity Statement*: Requires further hospitalization for management of hypoxic respiratory failure in setting of bilateral pneumonia, concern for aspiration pneumonitis in a patient with daily chronic alcohol use, COPD exacerbation, congestive heart failure with aortic stenosis Diagnoses Acute hypoxic respiratory failure J96.01 Community acquired pneumonia J18.9 Acute exacerbation of chronic obstructive airways disease J44.1 Chronic systolic CHF (congestive heart failure) I50.22 HTN (hypertension) I10 S/P right coronary artery (RCA) stent placement Z95.5 Severe sepsis A41.9; R65.20 Lactic acidosis E87.20
[2024-06-22 12:21] LABS: Estmated Average Glucose 100; Hemoglobin A1C 5.1 % (4.0-6.0)
[2024-06-22] MEDS: VANCOMYCIN ADD-Vantage 1,000 MG in 0.9% NaCl ADD-Vantage 250 ML 250 MG IV (12:24)
[2024-06-22] MEDS: FUROsemide 40 mg Tablet PO ×2 (12:24→17:37)
[2024-06-22 12:48] LABS: Vitamin B12 496 pg/mL (232-1245)
[2024-06-22] MEDS: piperacillin-tazobactam 3.375 GM in sodium chloride 0.9% (plus) 50 ML IV ×2 (15:21→22:22)
[2024-06-22 17:18] LABS: MRSA PCR OZH (swab) NOT DETECTED (Negative)
[2024-06-22] MEDS: atorvastatin 40 mg Tablet PO (17:37)
[2024-06-22 18:52] LABS: Bilirubin Urine Negative (Negative); Blood Urine Negative (Negative); Glucose Urine UA Negative (Normal); Ketones Urine Negative (Negative); Leukocyte Esterase Urine Negative (Negative); Nitrate Urine Negative (Negative); Protein Urine Negative (Negative); Specific Gravity, Urine 1.011 (1.005-1.030); Urine Appearance Clear (CLEAR); Urine Color Yellow (Yellow); Urobilinogen Urine 0.2 mg/dL (Negative); pH Urine 5.5 (5-7)
[2024-06-22 18:58] LABS: Add Urine Microscopic? YES; Bacteria Urine None Seen /hpf; Hyaline Casts Urine 1.21 /lpf; RBC Urine 0-2 /hpf (0-2); Squamous Epithelial Cell Urine 0-5 /hpf (0-5); WBC Urine 0-5 /hpf (0-5)
[2024-06-22] MEDS: enoxaparin 40 mg/0.4 mL Syringe SUBCUT (19:45)
--- NOTE | 2024-06-22 20:41 | FL_ITS ---
WS: [id number] Modified barium swallow, 06/22/2024 Clinical Data: Oropharyngeal dysphagia Comparison: None. Fluoroscopy time: 1min [id number] # of spot films: Findings: The patient swallowed the pudding and had some pooling in the vallecula and piriforms but cleared on swallowing. The leslee cracker spilled over the tongue base but cleared promptly on swallowing. There is no aspiration but there is a little bit of penetration with large doses of thin liquids. The katie um tablet was ingested and advanced promptly into the stomach without hesitation. FL/FL barium swallow modifd [id number] Impression: 1. Minimal penetration with large doses of thin liquids. 2. No evidence of aspiration with any material.
[2024-06-23] VITALS (14 sets, daily range): BP systolic 116–145; BP diastolic 62–82; PULSE 74–115; RESP 16–21; TEMP 36.6–36.7; O2SAT 91–99
[2024-06-23 05:29] LABS: Basophils % 0.1 %; Hematocrit 27.1 % (37-53); Lymphocytes # 1.4 10^3/uL (0.8-4.8); Lymphocytes % 8.3 %; Mean Corpuscular HGB Conc 29.9 g/dL (30-55); Mean Corpuscular Hemoglobin 26.4 pg (27-33); Mean Corpuscular Volume 88.3 fl (82-101); Mean Platelet Volume 9.4 fL (7.4-10.4); Neutrophils # 14.06 10^3/uL (1.8-7.7); Neutrophils % 84.8 %; Nucleated Red Blood Cells % 0.2 %; Platelet Count 356 10^3/cmm (157-399); Red Blood Count 3.07 10^6/uL (3.85-5.65); Red Cell Distribution Width 21.5 % (12.1-15.1); White Blood Count 16.59 10^3/uL (3.29-11.43)
[2024-06-23] MEDS: pantoprazole DR 40 mg Tablet PO (05:53)
[2024-06-23] MEDS: piperacillin-tazobactam 3.375 GM in sodium chloride 0.9% (plus) 50 ML IV ×3 (05:53→23:26)
[2024-06-23 05:56] LABS: Alanine Aminotransferase 13 U/L (0-41); Albumin Level 3.4 g/dL (3.5-5.2); Alkaline Phosphatase 80 U/L (40-130); Anion Gap 13.3 (5-19); Aspartate Amino Transferase 17 U/L (0-40); Blood Urea Nitrogen 12 mg/dL (8-23); Calcium 8.1 mg/dL (8.5-10.5); Carbon Dioxide 24 mmol/L (22-29); Chloride 105 mmol/L (98-107); Creatinine Clr Calc Pharmacy 65.5762; Globulin 2.8 g/dL (1.3-4.6); Glucose 113 mg/dL (65-115); Osmolality Calculated 289 mOsm/kg (285-295); Potassium 3.3 mmol/L (3.5-5.1); Sodium 139 mmol/L (136-145); Total Bilirubin 0.6 mg/dL (0.15-1.2); Total Protein 6.2 g/dL (6.6-8.7)
[2024-06-23 06:05] LABS: Folate Level 16.5 ng/mL (4.5-32.2)
[2024-06-23] MEDS: ipratropium-albuterol 3 mL Neb INHALATION ×4 (07:34→21:18)
[2024-06-23] MEDS: predniSONE 20 mg Tablet 40 MG PO (09:51)
[2024-06-23] MEDS: folic acid 1 mg Tablet PO (09:51)
[2024-06-23] MEDS: clopidogrel 75 mg Tablet PO (09:51)
[2024-06-23] MEDS: sennosides 8.6 mg Tablet 17.2 MG PO (09:51)
[2024-06-23] MEDS: multivitamin therapeutic Tablet 1 TAB PO (09:52)
[2024-06-23] MEDS: FUROsemide 40 mg Tablet PO ×2 (09:52→17:03)
[2024-06-23] MEDS: amiodarone 200 mg Tablet PO (09:52)
[2024-06-23] MEDS: azithromycin 250 mg Tablet 500 MG PO (09:52)
[2024-06-23] MEDS: thiamine 100 mg Tablet PO (09:52)
--- NOTE | 2024-06-23 14:23 | PM.DCS ---
Discharge Providers Date of Admission: 06/21/24 20:30 Date of Discharge: June 23, 2024 Attending Provider at Admission: Duyen Fontenot MD Attending Provider at Discharge: Alexander Patton MD Primary Care Provider: [place] APRN Diagnoses at Discharge Discharge Diagnosis (1) Acute hypoxic respiratory failure: Status: Acute (2) Community acquired pneumonia: Status: Acute (3) Acute exacerbation of chronic obstructive airways disease: Status: Acute (4) Chronic systolic CHF (congestive heart failure): Status: Acute Permanent problem details: 08/19/22: LVEF 15% (5) HTN (hypertension): Status: Chronic (6) S/P right coronary artery (RCA) stent placement: Status: Acute (7) Severe sepsis: Status: Acute (8) Lactic acidosis: Status: Acute Reason for Visit Reason for Visit: sob Brief History: History as per HPI: Reginald Pelaez is a 84 yo man w/ Emphysema, CAD s/p JORDAN x 1 to the RCA, Paroxysmal Afib, chronic HFrEF (EF of 40% on 04/2024) w/ grade II diastolic dysfxn, moderate valve stenosis, who presents to the ED on 06/21/2024 w/ dsypnea that began earlier in the day. He states that he has had dyspnea w/ exertion in the last 5-6 months, such that he becomes dyspneic after walking approximately 30feet. However, at noon, while sitting at home watching TV, he felt more dyspneic than usual. He attempted to fix himself a scotch and water hoping that it would help him feel better, but his dyspnea worsened, so he called his neighbor to take him to the hospital. In addition to dyspnea, he complains of chills and endorses rigors. He endorses a minimal dry cough, wheezing. He denies fevers, chest tightness, CP, papitations, syncope, falls, light headedness/dizziness, visual disturbances. He endorses dizziness when he gets up too fast. In the ED, his vital signs were significant for tachycardia of 106bpm and tachypnea up to 34. His lab was significant for leukocytosis of 27.4, and a lactic acid of 4.4. His CXR showed R>L infrahilar infiltrates. His EKG showed sinus tachycardia. He was given 1L NS bolus, 80 mg IVP x 1 of methylprednisolone, 1 g of ceftriaxone and 500 mg of azithromycin, and admitted for further management. He was placed on 5 L of oxygen for his acute hypoxic respiratory failure. Hospital Course Hospital Course Patient was admitted to the hospital for evaluation and management of acute hypoxic respiratory failure in setting of bilateral pneumonia. He was started on broad-spectrum antibiotics along with nebulization treatment and oral steroids. He responded well to the treatment and has been on his baseline oxygen supplementation for last more than 12 hours. Modified barium swallow was done which showed minimal penetration. Patient was counseled in detail about aspiration precautions. Home O2 evaluation has been done prior to discharge. He has been discharged in hemodynamically stable condition on oral Augmentin and Levaquin for next 4 days. He is to take prednisone 40 mg daily for next 4 days as well. He is to follow-up with his primary care provider within next 1 week. Physical Exam Const: GENERAL APPEARANCE: cooperative and comfortable ORIENTATION/CONSCIOUSNESS: Yes awake, Yes oriented to person, Yes oriented to place and Yes oriented to time HENMT: COMMON NORMALS: normocephalic, atraumatic, external ears normal and Normal external nose present HEAD & SCALP: normocephalic and atraumatic NOSE: Normal external nose present EXTERNAL EAR: Yes external ears normal MOUTH: Normal oral and palatal mucosa present OTHER: Mildly jaundiced oropharynx Eye: OTHER: PERRL, EOMI, mild jaundice bilaterally Neck/C-Spine: COMMON NORMALS: Thyroid normal GENERAL: Yes normal visual inspection and Yes trachea midline THYROID: Thyroid normal CAROTIDS: No bruit CERVICAL SPINE: Yes cervical ROM normal OTHER: . Lymph: OTHER: No cervical or supraclavicular LAD Resp: OTHER: Decreased breath sounds in the R> L lower lung bases. No wheezes, rales or rhonchi appreciated Cardio: OTHER: RRR, no m/r/g or clicks. GI: OTHER: BS+, NT, ND, no guarding, no rigidity, no rebound tenderness, no hepatosplenomegaly. Extremity: OTHER: R. foot and ankle chronically bigger than the L. Foot and ankle. R. foot w/ 2+ pitting edema to the mid tibia. Neuro: SENSORIUM/ORIENTATION: Yes oriented to person, Yes oriented to place and Yes oriented to time CRANIAL NERVES: Yes CN normal except as noted SPEECH: speech normal SENSORY EXAM: No sensory level loss detected MOTOR EXAM: 5/5 motor strength present throughout and Normal motor muscle tone present throughout Psych: COMMON NORMALS: Normal thought process present and speech normal APPEARANCE: Yes grossly normal ATTITUDE: Yes calm and Yes engaged ACTIVITY/MOTOR BEHAVIOR: Yes appropriate eye contact SPEECH: Yes normal speech MOOD & AFFECT: Yes euthymic mood THOUGHT PROCESS: Normal thought process present THOUGHT CONTENT: Yes Normal thought content present ATTENTION/CONCENTRATION: Yes attention grossly intact MEMORY/COGNITION: Yes memory grossly intact Skin: COMMON NORMALS: no rashes or lesions noted NARRATIVE SKIN EXAM: L. 2nd digit amputation GENERAL SKIN EXAM: no rashes or lesions noted Discharge Data Studies Completed and Pending Completed Studies During Hospitalization Category Date Time Status CXRP [XR chest 1V portable [id number]] Stat Exams 06/21/24 16:28 Completed FL barium swallow modifd 11021 Routine Exams 06/22/24 20:41 Completed Pending at discharge Category Date Time Status Blood Culture Stat Lab 06/21/24 19:50 Results Complete Blood Count w/Auto AM LABS Lab 06/24/24 04:00 Ordered Comprehensive Metabolic Panel AM LABS Lab 06/24/24 04:00 Ordered MAG [Magnesium] AM LABS Lab 06/24/24 04:00 Ordered MAG [Magnesium] AM LABS Lab 06/25/24 04:00 Ordered Magnesium AM LABS Lab 06/24/24 04:00 Ordered Phosphorus AM LABS Lab 06/24/24 04:00 Ordered Sputum Culture and Gram Stain Stat Lab 06/22/24 18:20 Received Streptococcus Culture Group A Stat Lab 06/21/24 23:59 Received Radiology Impressions Chest X-Ray 06/21/24 16:28 IMPRESSION: As above. Modified Barium Swallow 06/22/24 20:41 Impression: 1. Minimal penetration with large doses of thin liquids. 2. No evidence of aspiration with any material. Microbiology 06/21/24 19:50 Blood Blood Culture - Preliminary NEGATIVE TO DATE 06/21/24 18:45 Blood Blood Culture - Preliminary NEGATIVE TO DATE Laboratory Results WBC 16.59 10^3/uL (3.29-11.43) H 06/23/24 05:05 RBC 3.07 10^6/uL (3.85-5.65) L 06/23/24 05:05 Hgb 8.10 g/dL (11.27-16.99) L 06/23/24 05:05 Hct 27.1 % (37-53) L 06/23/24 05:05 MCV 88.3 fl (82-101) 06/23/24 05:05 MCH 26.4 pg (27-33) L 06/23/24 05:05 MCHC 29.9 g/dL (30-55) L 06/23/24 05:05 RDW 21.5 % (12.1-15.1) H 06/23/24 05:05 Plt Count 356 10^3/cmm (157-399) 06/23/24 05:05 MPV 9.4 fL (7.4-10.4) 06/23/24 05:05 Neut % (Auto) 84.8 % 06/23/24 05:05 Lymph % (Auto) 8.3 % 06/23/24 05:05 Sanders % (Auto) 6.0 % 06/23/24 05:05 Eos % (Auto) 0.0 % 06/23/24 05:05 Baso % (Auto) 0.1 % 06/23/24 05:05 Neut # (Auto) 14.06 10^3/uL (1.8-7.7) H 06/23/24 05:05 Lymph # (Auto) 1.4 10^3/uL (0.8-4.8) 06/23/24 05:05 Sanders # (Auto) 1.0 10^3/uL (0.2-0.9) H 06/23/24 05:05 Eos # (Auto) 0.0 10^3/uL (0.0-0.8) 06/23/24 05:05 Baso # (Auto) 0.0 10^3/uL (0.0-0.1) 06/23/24 05:05 Nucleated RBC % (auto) 0.2 % 06/23/24 05:05 Nucleated RBCs # 0.0 /100WBC 06/23/24 05:05 PT 12.80 SECONDS (12.1-14.9) 06/21/24 17:00 INR 0.90 (0.8-1.2) 06/21/24 17:00 APTT 26.7 SECONDS (23.9-36.7) 06/21/24 17:00 Sodium 139 mmol/L (136-145) 06/23/24 05:05 Potassium 3.3 mmol/L (3.5-5.1) L 06/23/24 05:05 Chloride 105 mmol/L (98-107) 06/23/24 05:05 Carbon Dioxide 24 mmol/L (22-29) 06/23/24 05:05 Anion Gap 13.3 (5-19) 06/23/24 05:05 BUN 12 mg/dL (8-23) 06/23/24 05:05 Creatinine 0.9 mg/dL (0.7-1.2) 06/23/24 05:05 GFR Calculation Not Reportable 06/23/24 05:05 Glucose 113 mg/dL (65-115) 06/23/24 05:05 Estimat Average Glucose 100 06/22/24 03:54 Hemoglobin A1c 5.1 % (4.0-6.0) 06/22/24 03:54 Calculated Osmolality 289 mOsm/kg (285-295) 06/23/24 05:05 Lactic Acid 4.4 mmol/L (0.5-2.2) H* 06/21/24 16:52 Lactic Acid (Sepsis) 2.3 mmol/L (0.5-2.2) H 06/21/24 18:45 Calcium 8.1 mg/dL (8.5-10.5) L 06/23/24 05:05 Phosphorus 2.0 mg/dL (2.5-4.5) L 06/23/24 05:05 Magnesium 2.0 mg/dL (1.7-2.3) 06/23/24 05:05 Total Bilirubin 0.6 mg/dL (0.15-1.2) 06/23/24 05:05 AST 17 U/L (0-40) 06/23/24 05:05 ALT 13 U/L (0-41) 06/23/24 05:05 Alkaline Phosphatase 80 U/L (40-130) 06/23/24 05:05 Total Protein 6.2 g/dL (6.6-8.7) L 06/23/24 05:05 Albumin 3.4 g/dL (3.5-5.2) L 06/23/24 05:05 Globulin 2.8 g/dL (1.3-4.6) 06/23/24 05:05 Vitamin B12 496 pg/mL (232-1245) 06/22/24 03:54 Folate 16.5 ng/mL (4.5-32.2) 06/23/24 05:05 Procalcitonin 0.70 ng/mL (0-0.5) H 06/22/24 03:54 TSH 1.67 uIU/mL (0.27-4.20) 06/22/24 03:54 Urine Color Yellow (Yellow) 06/22/24 18:20 Urine Appearance Clear (CLEAR) 06/22/24 18:20 Urine pH 5.5 (5-7) 06/22/24 18:20 Ur Specific [place] 1.011 (1.005-1.030) 06/22/24 18:20 Urine Protein Negative (Negative) 06/22/24 18:20 Urine Glucose (UA) Negative (Normal) 06/22/24 18:20 Urine Ketones Negative (Negative) 06/22/24 18:20 Urine Blood Negative (Negative) 06/22/24 18:20 Urine Nitrate Negative (Negative) 06/22/24 18:20 Urine Bilirubin Negative (Negative) 06/22/24 18:20 Urine Urobilinogen 0.2 mg/dL (Negative) 06/22/24 18:20 Ur Leukocyte Esterase Negative (Negative) 06/22/24 18:20 Urine RBC 0-2 /hpf (0-2) 06/22/24 18:20 Urine WBC 0-5 /hpf (0-5) 06/22/24 18:20 Ur Squamous Epith Cells 0-5 /hpf (0-5) 06/22/24 18:20 Amorphous Sediment Not Reportable 06/22/24 18:20 Urine Bacteria None seen /hpf (NONE) 06/22/24 18:20 Hyaline Casts 1.21 /lpf 06/22/24 18:20 Nasal MRSA (PCR) Not detected (Negative) 06/22/24 15:39 Coronavirus (PCR) Negative (Negative) 06/21/24 17:04 Influenza A (PCR) Negative (Negative) 06/21/24 17:04 Influenza Type B (PCR) Negative (Negative) 06/21/24 17:04 RSV (PCR) Negative (Negative) 06/21/24 17:04 Group A Strep Rapid Negative (Negative) 06/21/24 23:59 Vitals Last Vital Signs Temp 98.0 F 06/23/24 11:34 Pulse 74 06/23/24 12:42 Resp 18 06/23/24 12:42 BP 134/82 06/23/24 11:34 Pulse Ox 93 06/23/24 14:02 O2 Del Method Nasal Cannula 06/23/24 12:42 O2 Flow Rate 2 06/23/24 12:42 Discharge Plan Discharge Patient Disposition: Home Condition: Stable Prescriptions: New prednisone 20 mg Tablet 40 mg PO DAILY Qty: 8 0RF amoxicillin-pot clavulanate 875-125 mg tablet 1 tab PO BID 5 Days Qty: 10 0RF levofloxacin 750 mg tablet 750 mg PO Q24H 5 Days Qty: 5 0RF Continued (DME) L3221 orthopedic shoes See Rx Instructions .Route .MEDSUPPLY Qty: 1 0RF Rx Instructions: As directed to the shoe rene metolazone 2.5 mg tablet 2.5 mg PO DAILY Qty: 90 3RF potassium chloride 20 mEq tablet extended release See Rx Instructions .ROUTE .COMPLEX Qty: 180 2RF Dose Instruction: TAKE 1 TABLET BY MOUTH TWICE DAILY; HOLD IF YOU DO NOT TAKE LASIX Rx Instructions: TAKE 1 TABLET BY MOUTH TWICE DAILY; HOLD IF YOU DO NOT TAKE LASIX acetaminophen [Tylenol] 325 mg Tablet 650 mg PO Q6H PRN (Reason: Pain/fever) amiodarone [Pacerone] 200 mg Tablet 200 mg PO DAILY Qty: 30 0RF tamsulosin 0.4 mg Capsule 0.4 mg PO QPM Qty: 30 0RF atorvastatin 80 mg tablet 40 mg PO QPM albuterol sulfate 90 mcg/actuation HFA aerosol inhaler 2 inh INHALATION Q6H PRN (Reason: shortness of breath or wheezing) Qty: 8 0RF folic acid 1 mg Tablet 1 mg PO DAILY furosemide 40 mg tablet 40 mg PO BID magnesium oxide 400 mg (241.3 mg magnesium) tablet 400 mg PO DAILY Discharge Orders: Discharge Order (Routine); Ordered 06/23/24 Ordered By: Alexander Patton Referrals: [place] Park YIELD IMPROVEMENT ENGINEER [Primary Care Provider] - 1 week Discharge Diet: Cardiac Discharge Activity: Resume usual activity and Increase activity as tolerated Patient Instructions: Opioid Safety Activity Restrictions/Additional Instructions: Augmentin and Levaquin are the antibiotics which you need to take for next 4 days. Follow-up with primary care provider within next 1 week. Restrict fluid intake to less than 1500 cc, salt intake to less than 2 g daily. Advised to check his weight daily at home. Is advised that weight today would be the dry weight and if body weight increases by around 5 pounds, patient is to take an extra dose of Lasix daily till body weight comes down to weight today. If not able to come down to dry body weight in 1 week, then is to call cardiology office for further recommendations. Patient was counseled in detail to take medications regularly as prescribed. Discharge Attestations Time Spent in Discharge Care*: greater than 30 min Specific Discharge Activities: educating patient, discussing with pcp/other providers, discussing with case repairer/social workers/dc planners, documenting/other paperwork and evaluating patient/reviewing data Status at Discharge: Cognitive status at discharge: cognitively intact, Behavioral status at discharge: cooperative, Functional status at discharge: uses cane/walker, Overall status at discharge: patient is back to baseline Quality Metrics Clinical Quality Measures [ No reported AMI, CVA or VTE this stay] Coding Level of Care Code 25619 Total time (in minutes) for Discharge: 60 Diagnoses Acute hypoxic respiratory failure J96.01 Community acquired pneumonia J18.9 Acute exacerbation of chronic obstructive airways disease J44.1 Chronic systolic CHF (congestive heart failure) I50.22 HTN (hypertension) I10 S/P right coronary artery (RCA) stent placement Z95.5 Severe sepsis A41.9; R65.20 Lactic acidosis E87.20
[2024-06-23] MEDS: atorvastatin 40 mg Tablet PO (17:03)
[2024-06-23] MEDS: enoxaparin 40 mg/0.4 mL Syringe SUBCUT (20:41)
[2024-06-24] VITALS: PULSE 55; RESP 18; O2SAT 94
[2024-06-24] MEDS: ipratropium-albuterol 3 mL Neb INHALATION ×2 (01:31→04:54)
[2024-06-24 04:00] VITALS: BP 117/65; PULSE 86; RESP 18; TEMP 36.6; O2SAT 93
[2024-06-24 04:56] VITALS: PULSE 52; RESP 20; O2SAT 94
[2024-06-24] MEDS: pantoprazole DR 40 mg Tablet PO (06:10)
[2024-06-24 07:49] VITALS: BP 148/86; PULSE 92; RESP 15; TEMP 36.6; O2SAT 92
--- NOTE | 2024-06-24 08:00 | PC.NURSE ---
Late Entry from 06/23/24 1500 Patient is unable to return home today as he does not have a ride or anyone available to cotton picker his medications. Patient is excited about having dinner here. He states that [employer] has the best food.
[2024-06-24 09:10] VITALS: BP 120/60; PULSE 70; RESP 18; TEMP 36.8; O2SAT 93
== END 2024-06-24 08:00 | disposition home or self-care (01) | DRG 871 ==
LOC: ER 19:44 → MEDSURG 20:30
PROVIDERS: Admitting Provider Internal Medicine; Emergency Provider Student in an Organized Health Care Education/Training Program; PCP Nurse Practitioner Family; Visit Provider Student in an Organized Health Care Education/Training Program
DX: A41.9 Sepsis, unspecified organism (principal); J15.9 Unspecified bacterial pneumonia; J96.01 Acute respiratory failure with hypoxia; J44.1 Chronic obstructive pulmonary disease with (acute) exacerbation; J44.0 Chronic obstructive pulmonary disease with (acute) lower respiratory infection; I50.22 Chronic systolic (congestive) heart failure; E87.20 Acidosis, unspecified; I42.9 Cardiomyopathy, unspecified; R65.20 Severe sepsis without septic shock; I11.0 Hypertensive heart disease with heart failure; I25.10 Atherosclerotic heart disease of native coronary artery without angina pectoris; Z95.5 Presence of coronary angioplasty implant and graft; J43.9 Emphysema, unspecified; I48.0 Paroxysmal atrial fibrillation; N40.1 Benign prostatic hyperplasia with lower urinary tract symptoms; R39.12 Poor urinary stream; K21.9 Gastro-esophageal reflux disease without esophagitis; F10.10 Alcohol abuse, uncomplicated; F17.220 Nicotine dependence, chewing tobacco, uncomplicated; Z89.422 Acquired absence of other left toe(s); I73.9 Peripheral vascular disease, unspecified; Z98.1 Arthrodesis status; I35.0 Nonrheumatic aortic (valve) stenosis; Z95.820 Peripheral vascular angioplasty status with implants and grafts; Z85.21 Personal history of malignant neoplasm of larynx; Z85.828 Personal history of other malignant neoplasm of skin; E78.5 Hyperlipidemia, unspecified
CPT/HCPCS: 36415; 71045; 74230; 80053; 81001; 82607; 82746; 83036; 83605; 83735; 84100; 84145; 84443; 85025; 85610; 85730; 87040; 87070; 87081; 87205; 87637; 87880; 92611; 93005; 94640; 94760; 96365; 96372; 96375; 99285; J0456; J0692; J0696; J1650; J2543; J2919; J3370; J3411; J3490; J7030; J7050; J7512; Q0144

== ENCOUNTER 2024-06-30 15:22 | Emergency (ER) | payer OTHER, MEDICARE, SELFPAY ==
[2024-06-30 15:47] VITALS: BP 125/66; PULSE 98; RESP 18; TEMP 36.2; O2SAT 93; BMI 25.1
--- NOTE | 2024-06-30 15:55 | ECG_ITS ---
[facility]: [facility]24[facility]30 Pat Name: Reginald Pelaez Department: Room: Gender: Male C Application Developer: : 1940 Requested By: Lucila Fine Order Number: [id number] Reading MD: Measurements Intervals [place] Rate: 88 P: 0 IA: 0 QRS: 62 QRSD: 115 T: 39 QT: 410 QTc: 498 Interpretive Statements ATRIAL FIBRILLATION WITH ABERRANT CONDUCTION OR VENTRICULAR PREMATURE COMPLEXES MODERATE INTRAVENTRICULAR CONDUCTION DELAY [110+ ms QRS DURATION] MINIMAL ST DEPRESSION [0.025+ mV ST DEPRESSION] ABNORMAL RHYTHM ECG [email or web address]
[2024-06-30 16:58] LABS: Covid PCR NEGATIVE (Negative); Influenza A NEGATIVE (Negative); Influenza B NEGATIVE (Negative)
[2024-06-30 17:02] LABS: Respiratory Syncytial Virus Ce POSITIVE (Negative)
--- NOTE | 2024-06-30 19:31 | XRR_ITS ---
PROCEDURE INFORMATION: Exam: XR Chest Exam date and time: 06/30/2024 9:34 PM Age: 84 years old Clinical indication: Shortness of breath; SOB; Cough TECHNIQUE: Imaging protocol: Radiologic exam of the chest. Views: 1 view. COMPARISON: CR (CHEST, ) 06/21/2024 4:52 PM FINDINGS: Lungs: Improved aeration of the right lung base with residual linear and nodular opacities. In the remaining lungs are clear. Pleural spaces: Unremarkable. No pleural effusion. No pneumothorax. Heart/Mediastinum: Unremarkable. No cardiomegaly. Bones/joints: Unremarkable. XR/XR chest 1V portable [id number] IMPRESSION: As above.
--- NOTE | 2024-06-30 19:31 | XRR_ITS ---
PROCEDURE INFORMATION: Exam: XR Right Knee Exam date and time: 06/30/2024 9:34 PM Age: 84 years old Clinical indication: Right; RT knee pain post fall today TECHNIQUE: Imaging protocol: Radiologic exam of the right knee. Views: 3 views. COMPARISON: CT angio abd aorta runof [id number] 01/19/2022 2:41 PM FINDINGS: Bones/joints: Enchondroma versus bone infarct involving the distal diaphysis of the femur. No acute osseous abnormality. No dislocation. No joint effusion. Soft tissues: Normal. Vasculature: Vascular calcifications. XR/XR knee RT 3V* [id number] IMPRESSION: As above.
[2024-06-30 20:23] VITALS: BP 103/58; PULSE 80; RESP 16; TEMP 36.7; O2SAT 96
--- NOTE | 2024-06-30 20:23 | PC.NURSE ---
Rounded on pt in [place], VS obtained, pt requests something for a sore throat , ntfd provider of this request, encouraged pt to ntfy staff with any immediate needs
[2024-06-30] MEDS: neomycin-poly-bacitracin oint 28 gm 1 APPLIC TOPICAL (23:17)
[2024-06-30 23:49] VITALS: BP 105/62; PULSE 88; RESP 16; O2SAT 95
--- NOTE | 2024-06-30 23:50 | ED_ITS ---
HPI - Weakness General: Chief complaint: Weakness Stated complaint: dizziness, fell in Kitchen Time Seen by Provider: 06/30/24 22:42 History of Present Illness: 84-year-old male patient who was admitte d last week for bronchitis and pneumonia. He was sent home on 2 different antibiotics, and prednisone. He states that he took 2 doses of these, and began to get dizzy. He had some mild loss of vision to his left eye that is beginning to improve now. His left eye is very teary he says. He still has a cough. He is not overly short of breath. He became somewhat dizzy today and fell twice. He did not hit his head. He did scrape his knee. He did not lose consciousness. [facility] ED PFSH: Medical History Paroxysmal atrial fibrillation Cardiomyopathy Chronic systolic CHF (congestive heart failure) 08/19/22: LVEF 15% CAD (coronary artery disease) BPH loc w urin obs/LUTS Chronic decreased force of stream without RUTIs gross hematuria (previously prior to catheterization placement) or retention. 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 8.0 x 19 mm Omnilink stent was placed. Left Proximal Superficial Femoral Artery with 80-90 % stenosis treated with AB ARMADA 35 [id number] [id number]. 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 History of hip surgery right hip fracture repair Family History Other No pertinent family history Social History Smoking and tobacco/nicotine status: former use of tobacco/nicotine Alcohol intake: current Alcohol type: hard liquor Substance/Drug Use: current Substance/Drug use frequency: Special occassions/opportunity only Lives independently: Yes Household members: none Housing: House Physical Exam Const: COMMON NORMALS: no acute distress GENERAL APPEARANCE: cooperative and frail appearing (Mildly); not ill appearing Eye: CONJUNCTIVA: Yes conjunctival abnormal positive left conjunctival injection (Mild) diffuse Resp: COMMON NORMALS: normal respiratory effort, No use of accessory muscles and clear to auscultation bilaterally AUSCULTATION: clear to auscultation bilaterally Cardio: COMMON NORMALS: regular rate RATE: regular rate Extremity: NARRATIVE EXTREMITY EXAM: Exam the right lower extremity reveals an anterior knee abrasion. No knee joint effusion. No significant limitation range of motion Course Vital Signs: Vital signs: Vital Signs Temperature 98.0 F 06/30/24 20:23 Pulse Rate 88 06/30/24 23:49 Respiratory Rate 16 06/30/24 23:49 Blood Pressure 105/62 06/30/24 23:49 Pulse Oximetry 95 06/30/24 23:49 Oxygen Delivery Me thod Room Air 06/30/24 20:23 MDM - Weakness Medical Decision Making This patient's vitals have been stable here. He does not appear acutely ill. His chest x-ray shows improvement since his admission last week. Knee x-ray is negative. Patient is positive for RSV. He is tearful, particularly in the left eye with some signs of conjunctivitis, likely blurring his vision to some degree. He was placed on Levaquin, Augmentin, and prednisone. He is not wheezing. We will discontinue his prednisone, and his Levaquin as it can can cause significant dizziness. Will keep him on Augmentin. Polytrim for conjunctivitis, likely related to RSV. Return for worsening symptoms. Lab Data Radiology Impressions Chest X-Ray 06/30/24 19:31 IMPRESSION: As above. Knee X-Ray 06/30/24 19:31 IMPRESSION: As above. Laboratory Results Coronavirus (PCR) Negative (Negative) 06/30/24 15:55 Influenza A (PCR) Negative (Negative) 06/30/24 15:55 Influenza Type B (PCR) Negative (Negative) 06/30/24 15:55 RSV (PCR) Positive (Negative) A 06/30/24 15:55 All radiology interpretation(s) finalized by discharge Discharge Plan Discharge Patient Disposition: Home Clinical Impression: Abrasion of knee, right, Dizziness, Respiratory syncytial virus (RSV), Conjunctivitis Condition: Stable Prescriptions: New polymyxin B sulf-trimethoprim 10,000 unit- 1 mg/mL drops 1 drp ophthalmic (eye) QID 5 Days Qty: 10 0RF meclizine 25 mg tablet 12.5 mg PO TID PRN (Reason: dizziness) Qty: 30 0RF Discontinued prednisone 20 mg Tablet 40 mg PO DAILY Qty: 8 0RF No Action (DME) L3221 orthopedic shoes See Rx Instructions .Route .MEDSUPPLY Qty: 1 0RF Rx Instructions: As directed to the shoe rene metolazone 2.5 mg tablet 2.5 mg PO DAILY Qty: 90 3RF potassium chloride 20 mEq tablet extended release See Rx Instructions .ROUTE .COMPLEX Qty: 180 2RF Dose Instruction: TAKE 1 TABLET BY MOUTH TWICE DAILY; HOLD IF YOU DO NOT TAKE LASIX Rx Instructions: TAKE 1 TABLET BY MOUTH TWICE DAILY; HOLD IF YOU DO NOT TAKE LASIX acetaminophen [Tylenol] 325 mg Tablet 650 mg PO Q6H PRN (Reason: Pain/fever) amiodarone [Pacerone] 200 mg Tablet 200 mg PO DAILY Qty: 30 0RF tamsulosin 0.4 mg Capsule 0.4 mg PO QPM Qty: 30 0RF atorvastatin 80 mg tablet 40 mg PO QPM albuterol sulfate 90 mcg/actuation HFA aerosol inhaler 2 inh INHALATION Q6H PRN (Reason: shortness of breath or wheezing) Qty: 8 0RF folic acid 1 mg Tablet 1 mg PO DAILY furosemide 40 mg tablet 40 mg PO BID magnesium oxide 400 mg (241.3 mg magnesium) tablet 400 mg PO DAILY Discharge Orders: Discharge ED (Routine); Ordered 06/30/24 Ordered By: Ramon Rolle Referrals: Park,[place] G, ASSEMBLER FAUCETS [Primary Care Provider] - 1-3 days Patient Instructions: Abrasion (ED), Dizziness (ED), Conjunctivitis (ED), RSV (Respiratory Syncytial Virus) Infection (ED), Opioid Safety, Pain Management Activity Restrictions/Additional Instructions: Stop the prednisone and the levofloxacin. Continue the amoxicillin/clavulanate antibiotic you were prescribed from the hospital earlier. Use the eyedrops as directed. You may take meclizine as needed for any continued dizziness, although the dizziness should improve drastically after stopping the above medications, as should your eyesight on the left. Return for any continued problems. Treat your knee abrasion as instructed. See your doctor next week. Return for any more problems. Coding Level of Care Code ED Meat And Seafood Clerk for Chg Fwd Related Data Home Medications Medication Instructions Recorded Confirmed folic acid 1 mg tablet 1 mg PO DAILY 08/03/22 06/22/24 acetaminophen 325 mg tablet 650 mg PO Q6H PRN Pain/fever 08/19/22 06/22/24 (Tylenol) atorvastatin 80 mg tablet 40 mg PO QPM 12/05/23 06/22/24 furosemide 40 mg tablet 40 mg PO BID 05/05/24 06/22/24 magnesium oxide 400 mg (241.3 mg 400 mg PO DAILY 06/22/24 06/22/24 magnesium) tablet Previous Rx's Medication Instructions Recorded amiodarone 200 mg tablet (Pacerone) 200 mg PO DAILY #30 tabs 09/02/22 tamsulosin 0.4 mg capsule 0.4 mg PO QPM #30 caps 09/02/22 metolazone 2.5 mg tablet 2.5 mg PO DAILY #90 tabs 10/26/22 albuterol sulfate 90 mcg/actuation 2 inh inhalation Q6H PRN shortness 12/05/23 aerosol inhaler of breath or wheezing #8 grams potassium chloride 20 mEq See Rx Instructions .Route 01/03/24 tablet,extended release .COMPLEX #180 tabs L3221 orthopedic shoes #1 ea 04/10/24 meclizine 25 mg tablet 12.5 mg (1/2 x 25 mg) PO TID PRN 06/30/24 dizziness #30 tabs polymyxin B sulfate 10,000 1 drp ophthalmic (eye) QID 5 days 06/30/24 unit-trimethoprim 1 mg/mL eye drops #10 mL Allergies Allergy/AdvReac Type Severity Reaction Status Date / Time No Known Allergies Allergy Verified 06/21/24 16:34
== END 2024-06-30 23:56 | disposition home or self-care (01) ==
PROVIDERS: Emergency Medicine; Emergency Provider Emergency Medicine; PCP Nurse Practitioner Family
DX: S80.211A Abrasion, right knee, initial encounter (principal); R42 Dizziness and giddiness; B33.8 Other specified viral diseases; H10.9 Unspecified conjunctivitis; Z11.52 Encounter for screening for COVID-19; Z87.891 Personal history of nicotine dependence; I25.10 Atherosclerotic heart disease of native coronary artery without angina pectoris; J44.9 Chronic obstructive pulmonary disease, unspecified; I11.0 Hypertensive heart disease with heart failure; I50.22 Chronic systolic (congestive) heart failure; W19.XXXA Unspecified fall, initial encounter
CPT/HCPCS: 71045; 73562; 87637; 93005; 99284

== ENCOUNTER → 2024-07-04 15:30 | Outpatient (BNVA) | payer MEDICARE, SELFPAY | PROVIDERS: PCP Nurse Practitioner Family; Visit Provider Nurse Practitioner Family | DX: I11.0 Hypertensive heart disease with heart failure (principal); I35.0 Nonrheumatic aortic (valve) stenosis; I50.22 Chronic systolic (congestive) heart failure; D37.4 Neoplasm of uncertain behavior of colon | CPT/HCPCS: 99214 ==

== ENCOUNTER → 2024-09-14 09:50 | Outpatient (BNVA) | payer OTHER, SELFPAY | PROVIDERS: PCP Nurse Practitioner Family; Visit Provider Nurse Practitioner | DX: M70.61 Trochanteric bursitis, right hip (principal); Z71.89 Other specified counseling | CPT/HCPCS: 20610; J1100; J2795; J3301; J9999 ==

== ENCOUNTER 2024-11-24 08:13 | Inpatient (IN) | payer OTHER, MEDICARE, MEDICAID, SELFPAY ==
--- OUTSIDE RECORDS SUMMARY | 2024-02-13 06:00 | XMS_ITS ---
Author Organization [facility] [employer] Address [address] [place] [address] Care Team Providers Care Entrepreneurship Program Director Name Role Phone [facility] Primary Care Provider Lucina claudia [facility] Unavailable [phone] [place], [place] Unavailable Unavailable DAVIN HOWARD Unavailable [phone] REASON FOR VISIT 6 wks w/ ua/pvr/psa Encounters Encounter Location Date Provider Diagnosis [facility] [address] [place] [address] 02/13/2024 DAVIN HOWARD Plan Of Treatment No Information Progress Notes * Reginald PELAEZ MDOB:[birth year] (84 yo M)Acc No.[id number]:02/13/2024 Progress Notes Patient: Mayo BRANReginald HAMMER Provider: PIERO Carbone :1940 A ge:83 Y S ex:Male Date:02/13/2024 Address:[address] [place], [place] [id number] Pcp:[facility] Subjective: * Chief Complaints: * 1 . 6 wks w/ ua/pvr/psa. * Medical History: Objective: * Vitals: Assessment: Plan: * Treatment: * Billing Information: * Visit Code: * Procedure Codes: * Electronic signature of DAVIN HOWARD APRN on 11/24/2024 at 08:16 AM CDT Sign off status: Pending * Provider: PIERO Carbone Date: 0 02/13/2024 Generated for Nelia reardon/Tiffanie/Quinitting on: 0 11/24/2024 08:16 AM CDT
[2024-11-24] VITALS (15 sets, daily range): BP systolic 89–141; BP diastolic 43–91; PULSE 67–93; RESP 16–18; TEMP 36.4–36.8; O2SAT 92–98; BMI 25.1; BMI 24.8
--- OUTSIDE RECORDS SUMMARY | 2024-11-24 08:16 | XMS_ITS | Patient Health Record ---
Author Organization [facility] Address [address] [place], [place] [id number] Care Team Providers Care Roller Skater Name Role Phone Diamond EASLEY, Sachin Unavailable [phone] [place], [place] Unavailable Unavailable Reason For Referral No Information Social History Tobacco Use: Social History Observation Description Date Details (start date - stop date) Former Smoker NA - NA Tobacco use: Question Answer Notes : former smoker When did you stop smoking? 2008 Problems Problem Type SNOMED Code ICD Code Onset Dates Problem Status W/U Status Risk Notes Problem Low back pain (750127359) Low back pain, unspecified (M54.50) Active confirmed Plan Of Treatment No Information Insurance Providers Payer Name Payer Address Payer Phone Subscriber Number Group Number Insured Name Patient Relationship to Insured Coverage Start Date Coverage End Date [employer] [address] [place] [address] NEED SSN Reginald Pelaez Self - patient is the insured Medical (General) History Medical History History ICD Code Low back pain Tinnitus Alcohol abuse Tobaccoa use disorder Calculus of gallbaldder without chilecys titis Carcinoma of vocal cord COPD Hypertension Hyperlipidemia Peripheral vascular disease Atrial fibrillation Cirrhosis of liver Vitamin D deficiency Surgical History Surgery Date(Month/Year) Hip surgery Back surgery
--- OUTSIDE RECORDS SUMMARY | 2024-11-24 08:16 | XMS_ITS | Clinical Summary ---
Author Organization [facility] Address [address] [place] [address] Care Team Providers Care Coat Examiner Name Role Phone Unavailable Primary Care Provider Unavailabl e Allergies No known active allergies Medications atorvastatin (LIPITOR) 80 mg tablet Take 40 mg by mouth. 3 Active calcium CARBONATE + vitamin D (CALTRATE+D) 600 mg-10 mcg (400 unit) Tablet Take by mouth. 4 Active cetirizine (ZyrTEC) 10 mg tablet Take 10 mg by mouth. 4 Active clopidogreL (PLAVIX) 75 mg Tablet Take 75 mg by mouth. 3 Active fluticasone propionate (FLONASE) 50 mcg/spray [place], Suspension nasal inhaler Administer in each nostril. 4 Active folic acid (FOLVITE) 1 mg tablet Take 1 mg by mouth. 3 Active furosemide (LASIX) 40 mg tablet Take 40 mg by mouth. 3 Active magnesium oxide (MAG-OX) 400 mg (241.3 mg magnesium) tablet Take 1 Tablet by mouth daily. 5 Active albuterol (PROVENTIL,AURELIANO TEMO) 2.5 mg /3 mL (0.083 %) Solution for Nebulization Take 2.5 mg by inhalation one time only. Active albuterol sulfate HFA 90 mcg/actuation aerosol inhaler Take 2 Puffs by inhalation every 6 hours as needed for Shortness of Breath. Active montelukast (SINGULAIR) 10 mg tablet Take 10 mg by mouth daily at bedtime. Active tamsulosin (FLOMAX) 0.4 mg capsule Take 0.4 mg by mouth daily. Active potassium CHLORIDE (K-DUR,KLOR-CON M20) 20 mEq Extended Release tablet Take 20 mEq by mouth daily. Active amiodarone (CORDARONE) 200 mg tablet Take 200 mg by mouth daily. Active docusate sodium (STOOL SOFTENER ORAL) Take by mouth. Activ e metOLazone (ZAROXOLYN) 2.5 mg tablet Take 2.5 mg by mouth 1 time daily as needed. Active Entresto 24-26 mg Tablet Take 1 Tablet by mouth 2 times daily. Active prednisoLONE acetate (Pred Forte) 1 % suspension Administer 1 Drop in left eye 4 times daily x 7 days then 3 times daily x 7 days then 2 times daily x 7 days then daily x 7 days then STOP 10 mL 5 10/26/19 25 polymyxin B sulf-trimethopri m (POLYTRIM) 10,000 unit- 1 mg/mL solution Administer 1 Drop in left eye 4 times daily for 7 days. 10 mL 09/26/2024 9:50 AM CDT 5 11/16/19 25 Active Problems Problem Noted Date Diagnosed Date Atrial fibrillation 09/25/2024 Overview (09/25/2024): Aug 19, 2022 Entered By: KATHRYN KAUFMAN Comment: New Onset 07/2022. Chronic obstructive pulmonary disease 09/25/2024 Hyperlipidemia 09/25/2024 Primary hypertension 09/25/2024 Chronic congestive heart failure 09/25/2024 Retinal tear of left eye 07/30/2024 Posterior vitreous detachment of left eye 2024 Chorioretinal scar, right Conductive hearing loss Ectropion of left lower eyelid Pseudophakia of both eyes Ectropion of right lower eyelid Ectropion of both lower eyelids Encounters Date Type Department Care Team Description 10/17/2024 External Device Data STL ABSTRACTION Provider, Abstract 10/16/2024 External Device Data ST[facility] ABSTRACTION Provider, Abstract 10/02/2024 External Device Data [facility] ABSTRACTION Provider, Abstract 10/02/2024 External Device Data ST[facility] ABSTRACTION Provider, Abstract 10/02/2024 External Device Data STL ABSTRACTION Provider, Abstract 09/26/2024 8:20 AM CDT Office Visit [facility] [address] [place] [address] [place] [phone] Georgette Jiménez MD 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 (Primary Dx); Proliferative vitreoretinopathy of left eye 09/25/2024 4:47 PM CDT Anesthesia Event [facility] Operating Room [address] [place] [phone] Ravindra Vivar MD Le, Danny Brown, AA 09/25/2024 3:40 PM CDT - 09/25/2024 5:05 PM CDT Surgery [facility] Operating Room [address] [place] [phone] Georgette Jiménez MD [place] VITRECTOMY WITH LASER 09/25/2024 1:15 PM CDT - 09/26/2024 8:12 AM CDT Hospital Encounter [facility] 3A Surgical [address] [place] [phone] Georgette Jiménez MD Siddiqi, Talha, MD Ayeni, Opeyemi, MD Retinal tear of left eye Discharge Disposition: Home or Self Care 09/25/2024 Travel 09/17/2024 Telephone [facility] [address] [place] [address] [place] [phone] Georgette Jiménez MD Surgery Talk 09/13/2024 Telephone [facility] [address] [place] [address] [place] [phone] Georgette Jiménez MD Surgery Talk 09/12/2024 2:50 PM CDT Office Visit [facility] [address] [place] [address] [place] [phone] Georgette Jiménez MD 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 (Primary Dx); Proliferative vitreoretinopathy of left eye 09/12/2024 Orders Only [facility] [address] [place] [address] [address] [place] [phone] Georgette Jiménez MD 08/29/2024 8:50 AM CDT Office Visit [facility] [address] [place] [address] [address] [place] [phone] Georgette Jiménez MD 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 (Primary Dx) 08/28/2024 3:40 PM CDT Anesthesia Event [facility] Operating Room [address] [place] [phone] Yasmeen Cheatham MD Johnsen, James, CRNA 08/28/2024 2:25 PM CDT - 08/28/2024 3:33 PM CDT Surgery [facility] Operating Room [address] [place] [phone] Georgette Jiménez MD EYE [place] VITRECTOMY 08/28/2024 11:19 AM CDT - 08/28/2024 5:25 PM CDT Hospital Encounter [facility] 3J Pre-Op [address] [place] [phone] Georgette Jiménez MD Discharge Disposition: Home or Self Care 08/27/2024 Telephone [facility] [address] [place] [address] [place] [phone] Georgette Jiménez MD Surgery Talk from Last 3 Months Immunizations Immunization Administration Dates Next Due (ADACEL/BOOSTRIX)(10 YR UP) TDAP VACCINE, 0.5ML, IM 12/21/2021,05/12/2012 (PNEUMOVAX 23)(50 YRS UP) PN EUMOCOCCAL POLYSACCHARIDE (PPV23) 0.5 ML, IM 12/21/2021 (PREVNAR 13)(6 WKS UP) PNEUM OCOCCAL CONJUGATE (PCV13) 0.5 ML, IM 03/20/2015 (SHINGRIX)(50 YRS UP) ZOSTER VACCINE RECOMBINANT, 0.5 ML, IM 12/12/2017,09/27/2017 (TWINRIX)(18 YRS UP) HEPATIT IS A AND HEPATITIS B VACCINE ADULT, 1 ML, IM 02/20/2019,01/19/2019 INFLUENZA VACCINE QUADRIVALE NT 6 MOS UP PF IM 02/26/2021,02/22/2020,02/16/2019 Influenza Seasonal Unspecifi ed Formulation PF IM 03/14/2018,02/22/2017,03/01/2016,03/20,02/21/2014 Influenza Vaccine High Dose 65+ Yrs IM 4 Influenza, Unspecified Formulation 02/27,04/02/2011,03/23/2010,03/24,04/22/2008,04/29/2007,03/29/2007 Pneumococcal vaccine, unspec ified formulation 03/20/2012,03/30/2007,05/30/2006,04/14 Zoster Vaccine Live SQ 12/31/2011 Family History Medical History Relation Name Comments Toxopasmosis Father Relation Name Status Comments Father Social History Tobacco Use Types Packs/Day Years Used Date Smoking Tobacco: Never Smokeless Tobacco: Current Snuff Tobacco Cessation:Ready to Q uit: No; Counseling Given: No Alcohol Use Standard Drinks/Week Comments Yes 28 (1 standard drink = 0.6 oz pu re alcohol) Vodka and [employer] Feeling Safe Answer Date Recorded Are you in a relationship wi th someone who hurts you emotionally and/or physically? 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 Gender Identity Not on file Sexual Orientation Not on file Last Filed Vital Signs Vital Sign Reading Time Taken Comments Blood Pressure 134/66 09/26/2024 7:12 AM CDT Pulse 76 09/26/2024 7:12 AM CDT Temperature 36.7 C (98 F) 09/26/2024 7:12 AM CDT Respiratory Rate 18 09/26/2024 7:12 AM CDT Oxygen Saturation 97% 09/26/2024 7:12 AM CDT Inhaled Oxygen Concentration - - Weight 73.9 kg (162 lb 14.7 oz) 09/25/2024 1:40 PM CDT Height 175.3 cm (5' 9 ) 09/25/2024 1:40 PM CDT Body Mass Index 24.06 09/25/2024 1:40 PM CDT Plan of Treatment Upcoming Encounters Date Type Department Care Team (Late st Contact Info) Description 12/19/2024 1:10 PM CDT Office Visit [facility] Op[facility]mology [place] [address] [place] [phone] Georgette Jiménez MD [address] [place] [phone] Health Maintenance Due Date Last Done Comments RSV VACCINE (60+ or ) (1 - 1-dose 75+ series) 2017 COVID-19 Vaccine (2023-2 5 season) 2024 03/16/2021, 08/27/2020, 07/30/2020 DTAP/TDAP/TD VACCINES (3 - T d or Tdap) 12/22/2031 12/21/2021, 05/12/2012 ZOSTER VACCINE Completed 12/12/2017, 0505/2017, 12/31/2011 PNEUMOCOCCAL VACCINE 50+ YEARS Completed 0 12/21/2021, 03/20/2015, 03/20/2012, Additional history exists INFLUENZA VACCINE Completed 03/15/2024, , 02/22/2020, Additional history exists Medical Devices Implanted Type Area Electric Meter Setter Device Identifier Shelf Expiration Date Model / Serial / Lot Oil Slc 8.5ml [id number] - [id number] Implanted:Qty: 1 on 08/28/2024 by Georgette Jiménez MD at [facility] Eye Left: Eye [employer] 05/29/2026 [id number] / / 121C0 Description:[id number] Oil Slc 8.5ml [id number] - [id number] Implanted:Qty: 1 on 09/25/2024 by Georgette Jiménez MD at [facility] Eye Left: Eye [employer] [id number] 05/29/2026 [id number] / / 121C0 Oil Slc 8.5ml [id number] - [id number]:[id number] Implanted:Qty: 1 on 09/25/2024 by Georgette Jiménez MD at [facility] Eye Left: Eye [employer] 05/29/2026 [id number] / [id number]:[id number] / 121CO Procedures Procedure Name Priority Date/Time Associated Diagnosis Comments TELEMETRY REPORT 10/02/2024 3:03 AM CDT COMPREHENSIVE METABOLIC PANEL Stat 09/26/2024 7:56 AM CDT CBC WITH DIFFERENTIAL Stat 09/26/2024 7:56 AM CDT IN VITRECTOMY MECHANICAL [place] 09/25/2024 3:40 PM CDT H33.022 IN VITRECTOMY MCHNL PARS PLNA FOCAL ENDOLASER PC 09/25/2024 3:40 PM CDT H33.022 OCT, RETINA - OU - BOTH EYES Routine 09/12/2024 3:50 PM CDT 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 BLOOD GAS ARTERIAL Stat 08/28/2024 3: 25 PM CDT EKG 12-LEAD Routine 08/28/2024 3:06 PM CDT IN VITRECTOMY MECHANICAL [place] 08/28/2024 2:25 PM CDT H33.022 IN RMVL VITREOUS ANT APPR PARTIAL REMOVAL 08/28/2024 2:25 PM CDT H33.022 from Last 3 Months Results * TELEMETRY REPORT (10/02/2024 3:03 AM CDT) us Provider Scanning ECG ORDERABLES Final Result * (ABNORMAL) CBC WITH DIFFERENTIAL (09/26/2024 7:56 AM CDT) WBC 8.7 4.8 - 10.8 K/uL 09/26/2024 8:28 AM [facility] RBC 4.21(L) 4.60 - 6.20 M/uL 09/26/2024 8:28 AM [facility] HEMOGLOBIN 10.1(L) 14.0 - 18.0 g/dL 09/26/2024 8:28 AM [facility] HEMATOCRIT 35.1(L) 41.0 - 53.0 % 09/26/2024 8:28 AM [facility] MCV 83.4(L) 84.0 - 103.0 fL 09/26/2024 8:28 AM [facility] MCH 24.0(L) 27.0 - 34.0 pg 09/26/2024 8:28 AM [facility] MCHC 28.8(L) 30.0 - 35.0 g/dL 09/26/2024 8:28 AM [facility] PLATELETS 393 140 - 440 K/uL 09/26/2024 8:28 AM [facility] MPV 9.5 8.9 - 12.8 fL 09/26/2024 8:28 AM [facility] RDW 21.5(H) 11.0 - 14.5 % 09/26/2024 8:28 AM [facility] RDW-STDEV 64.2(H) 37.0 - 54.0 fL 09/26/2024 8:28 AM [facility] NEUTROPHILS 67 42 - 75 % 09/26/2024 8:28 AM [facility] LYMPHOCYTES 19(L) 24 - 44 % 09/26/2024 8:28 AM [facility] MONOCYTES 11(H) 2 - 10 % 09/26/2024 8:28 AM [facility] EOSINOPHILS 2 0 - 7 % 09/26/2024 8:28 AM [facility] BASOPHILS 1 0 - 1 % 09/26/2024 8:28 AM [facility] IMMATURE GRANULOCYTES 1 0 - 2 % 09/26/2024 8:28 AM CDT [facility] NEUTROPHIL ABSOLUTE 5.89 2.00 - 8.00 K/uL 09/26/2024 8:28 AM CDT [facility] LYMPHOCYTE ABSOLUTE 1.69 1.20 - 4.00 K/uL 09/26/2024 8:28 AM CDT [facility] MONOCYTE ABSOLUTE 0.92(H) 0.10 - 0.60 K/uL 09/26/2024 8:28 AM CDT [facility] EOSINOPHIL ABSOLUTE 0.13 0.00 - 0.70 K/uL 09/26/2024 8:28 AM CDT [facility] BASOPHILS ABSOLUTE 0.05 0.00 - 0.20 K/uL 09/26/2024 8:28 AM CDT [facility] IMMATURE GRANULOCYTES ABSOLUTE 0.05 0.00 - 0.10 K/uL 09/26/2024 8:28 AM CDT [facility] SMEAR REVIEWED: NN - No Action Needed 09/26/2024 8:28 AM CDT [facility] Blood Venipuncture / Unknown 09/26/2024 7:56 AM CDT 09/26/2024 8:21 AM CDT us Lorrie Conway MD HEMATOLOGY ORDERABLES Final [id number] [address] [place] [id number] * (ABNORMAL) COMPREHENSIVE METABOLIC PANEL (09/26/2024 7:56 AM CDT) SODIUM 137 136 - 145 mmol/L 09/26/2024 8:53 AM CDT [facility] POTASSIUM 4.3 3.5 - 5.1 mmol/L 09/26/2024 8:53 AM CDT [facility] CHLORIDE 107 98 - 107 mmol/L 09/26/2024 8:53 AM CDT [facility] CO2 20(L) 22 - 29 mmol/L 09/26/2024 8:53 AM [facility] CALCIUM 8.4(L) 8.8 - 10.2 mg/dL 09/26/2024 8:53 AM [facility] BUN 12 8 - 23 mg/dL 09/26/2024 8:53 AM [facility] CREATININE 0.89 0.67 - 1.17 mg/dL 09/26/2024 8:53 AM [facility] Comment:The GFR result is no t clinically significant on patients <18 or >70 years of age. GLUCOSE 103(H) 74 - 99 mg/dL 09/26/2024 8:53 AM [facility] TOTAL PROTEIN 6.7 6.4 - 8.3 g/dL 09/26/2024 8:53 AM [facility] ALBUMIN 3.6 3.5 - 5.2 g/dL 09/26/2024 8:53 AM [facility] BILIRUBIN TOTAL 1.0 0.2 - 1.0 mg/dL 09/26/2024 8:53 AM [facility] ALKALINE PHOSPHATASE 119 40 - 129 U/L 09/26/2024 8:53 AM [facility] AST 30 10 - 50 U/L 09/26/2024 8:53 AM [facility] ALT 18 <=50 U/L 09/26/2024 8:53 AM [facility] GFR >60 mL/min/1.7 3 sq meter 09/26/2024 8:53 AM [facility] Comment:eGFR calculated with 2020 CKD-EPI equation. Vegetarian diet, extremely high or low muscle mass, and may affect results. Cystatin C with Glomerular Filtration Rate is a suitable alternative for these patients. ANION GAP 10 9 - 20 mmol/L 09/26/2024 8:53 AM [facility] Blood Venipuncture / Unknown 09/26/2024 7:56 AM CDT 09/26/2024 8:21 AM CDT us Lorrie Conway MD CHEMISTRY ORDERABLES Final Resu lt Performing Organization Address City/[facility]/ZIP Co de Phone Number [facility] CLIA # [id number] [address] [facility] [place] [address] * OCT, RETINA - OU - BOTH EYES (09/12/2024 3:50 PM CDT) Narrative [facility] OPHTHALMOLOGY ORDERS - 09/12/2024 3:59 PM CDT Optical coherence tomography ordered to evaluate the status of the macula: Right Eye: Regular fovea contour Left Eye: Flat, thin fovea us Georgette Jiménez MD OPHTH TOMOGRAPHY Final Re sult Performing Organization Address [facility]/ZIP Co de Phone Number [facility] OPHTHALMOLOGY ORDERS * (ABNORMAL) BLOOD GAS ARTERIAL (08/28/2024 3:25 PM CDT) PH BLOOD POC 7.55(H) 7.35 - 7.45 08/28/2024 3:25 PM CDT [facility] PCO2 POC 31(L) 35 - 45 mm Hg 08/28/2024 3:25 PM CDT [facility] PO2 POC 62(L) 80 - 105 mm Hg 08/28/2024 3:25 PM CDT [facility] HCO3 (CALC) POC 27(H) 22 - 26 mmol/L 08/28/2024 3:25 PM CDT [facility] HEMOGLOBIN POC 9.6(L) 12.0 - 18.0 g/dL 08/28/2024 3:25 PM CDT [facility] BASE EXCESS POC 5(H) -2 - 3 mmol/L 08/28/2024 3:25 PM CDT [facility] O2 SATURATION POC 93(L) 95 - 98 % 08/28/2024 3:25 PM CDT [facility] SODIUM POC 136(L) 138 - 146 mmol/L 08/28/2024 3:25 PM CDT [facility] POTASSIUM POC 3.7 3.5 - 4.9 mmol/L 08/28/2024 3:25 PM CDT [facility] HEMATOCRIT POC 29(L) 38 - 51 % 08/28/2024 3:25 PM CDT [facility] PH TEMP CORRECT 7.55(H) 7.35 - 7.45 08/28/2024 3:25 PM CDT [facility] PCO2 TEMP CORRECT 31(L) 35 - 45 mm Hg 08/28/2024 3:25 PM CDT [facility] PO2 TEMP CORRECT 62(L) 80 - 105 mm Hg 08/28/2024 3:25 PM CDT [facility] SPECIMEN SOURCE, GASES POC Arterial 08/28/2024 3:25 PM CDT [facility] CALCIUM IONIZED POC 4.6(L) 4.8 - 5.2 mg/dL 08/28/2024 3:25 PM CDT [facility] TCO2 (CALC) POC 28(H) 23 - 27 mmol/L 08/28/2024 3:25 PM CDT [facility] PUNC SITE POC ART PUNCT 08/28/2024 3:25 PM CDT [facility] Blood, arterial 08/28/2024 3 :25 PM CDT 08/28/2024 3:27 PM CDT us Dre Coelho MD ABG ORDERABLES Final Result [facility] CLIA # [id number] [address] [address] * EKG 12-LEAD (08/28/2024 3:06 PM CDT) 08/28/2024 3:06 PM CDT Narrative INTERFACE SYSTEM - 08/29/2024 6:58 PM CDT [facility] [address] [place] [address] Test Date: 2024-08-28 Pat Name: REGINALD AGUIRREWIN Department: 12 Room: HOLDING HOLDING PO Gender: Male Hand Slitter: [id number] : 1940 Requested By: Order Number: [id number] Reading MD: Chioma Harrington Measurements Intervals [place] Rate: 79 P: 75 IN: 192 QRS: 13 QRSD: 106 T: 17 QT: 474 QTc: 543 Interpretive Statements Sinus rhythm with premature supraventricular complexes Prolonged QT Abnormal ECG Electronically Signed On 08-29-2024 18:58:35 CDT by Chioma Harrington Procedure Note Chioma Harrington, DO - 08/29/2024 [facility] [address] [place] [address] Test Date: 2024-08-28 Pat Name: REGINALD PELAEZ Department: 12 Room: HOLDING HOLDING PO Gender: Male Hand Slitter: [id number] : 1940 Requested By: Order Number: [id number] Reading MD: Chioma Harrington Measurements Intervals [place] Rate: 79 P: 75 IN: 192 QRS: 13 QRSD: 106 T: 17 QT: 474 QTc: 543 Interpretive Statements Sinus rhythm with premature supraventricular complexes Prolonged QT Abnormal ECG Electronically Signed On 08-29-2024 18:58:35 CDT by Chioma Harrington us Dre Coelho MD ECG ORDERABLES Final Result Performing Organization Address City/State/[facility] Co de Phone Number INTERFACE SYSTEM Refer to clinic/hospital department from Last 3 Months Insurance RX [facility] Medicare Part D RX [employer] Medicaid * Guarantor: [facility] G (C) Account Type Relation to Patient Date of Phone Billing Address Corporate Other DEFAULT ADDRESS [address] [employer] Advance Directives For more information, please contact: [phone] * Full Code (Latest Code Status on File) Date Activated Date Inactivated Comments 09/25/2024 1:25 PM 09/26/2024 10:17 AM * Full Code Date Activated Date Inactivated Comments 08/28/2024 11:52 AM 08/28/2024 7:35 PM
--- OUTSIDE RECORDS SUMMARY | 2024-11-24 08:16 | XMS_ITS | Patient Health Record ---
Author Organization [facility] Address [address] [place] [address] Care Team Providers Care Pest Control Chemical Technician Name Role Phone Jerome Sanon Unavailable [phone] Reason For Referral No Information Problems Problem Type SNOMED Code ICD Code Onset Dates Problem Status W/U Status Risk Notes Problem Gastroesophageal reflux disease (273735922) Acid reflux disease (530.81) 008 Active confirmed [id number] 911- Problem Generalized osteoarthritis (413853459) 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) 008 Active confirmed [id number] 911- Problem Tobacco user (561231346) Cigarette smoking (305.1) 008 Problem resolved confirmed [id number] 911- Problem General examination of patient (939618053) Annual exam (V70.0) 008 Problem resolved confirmed [id number] 911- Problem Thyroid function tests abnormal (252359121) Abnormal thyroid findings (794.5) 008 Problem resolved confirmed [id number] 911- Plan Of Treatment No Information Medical (General) History Surgical History Surgery Date(Month/Year) NONE
--- OUTSIDE RECORDS SUMMARY | 2024-11-24 08:16 | XMS_ITS | Patient Health Record ---
Author Organization [facility] Address [address] [place] [address] Care Team Providers Care Servicing Manager Name Role Phone [facility] Primary Care Provider ED Ramesh Unavailable [phone] MsKevin Unavailable Unavailable DAVIN HOWARD Unavailable [phone] Allergies No Known Allergies Reason For Referral No Information Medications Medication SIG (Take, Route, Frequency, Duration) Notes Start Date End Date Status Multivitamin Active Potassium Active Clopidogrel Bisulfate 75 MG 1 tablet Ora lly Once a day Active Furosemide 40 MG 1 tablet Orally twic e a day 11/01/2023 Active Folic Acid 1 MG 1 tablet Orally Once a day 11/01/2023 Active metOLazone 2.5 MG 1 tablet Orally Once a day Active Ferrous Sulfate 325 (65 Fe) MG 1 tablet Orally daily 11/01/2023 Active Tamsulosin HCl 0.4 MG 2 capsules orally once a day in the evening for 30 days Active Tiotropium [place] Monohydrate 18 MCG 1 capsule by inhaling the contents of the capsule using the HandiHaler device Inhalation Once a day 11/01/2023 Active Amiodarone HCl 200 MG 1 tablet Orally On ce a day Active Atorvastatin Calcium 80 MG 1 tablet Oral ly Once a day Active Magnesium Active Social History Tobacco Use: Social History Observation Description Date Details (start date - stop date) Former Smoker NA - NA Tobacco Control (Standard) Question Answer Notes Tobacco use: Former smoker How long has it been since you last smoked? Grea ter than 10 years Problems Problem Type SNOMED Code ICD Code Onset Dates Problem Status W/U Status Risk Notes Problem Benign prostatic hyperplasia (571271183) BPH (benign prostatic hyperplasia) (N40.0) Active confirmed Plan Of Treatment Pending Test Test Name Order Date PSA, TOTAL (5363) 11/01/2023 Bladder Scan 11/01/2023 Insurance Providers Payer Name Payer Address Payer Phone Subscriber Number Group Number Insured Name Patient Relationship to Insured Coverage Start Date Coverage End Date [employer] [address] [place] [id number] Reginald Pelaez Self - patient is the insured Medical (General) History Medical History History ICD Code alcohol abuse actinic keratosis gallstones vocal cord cancer COPD HTN hyperlipidemia PVD a fib cirrhosis vitamin d deficiency Surgical History Surgery Date(Month/Year) vocal cord cancer back surgery 2023 Hospitalization History Reason Date(Month/Year) surgery
--- NOTE | 2024-11-24 08:58 | XRR_ITS ---
PROCEDURE INFORMATION: Exam: XR Chest Exam date and time: 11/24/2024 9:10 AM Age: 84 years old Clinical indication: Cough; Prior surgery; Surgery date: 6+ months; Surgery type: Cardiac stent; Decreased lung sounds; Swelling; Fluid retention TECHNIQUE: Imaging protocol: Radiologic exam of the chest. Views: 1 view. COMPARISON: CR XR chest 1V portable [id number] 06/30/2024 9:34 PM FINDINGS: Lungs: Minimal atelectasis and/or chronic subpleural fibrosis in the lower lung zones. No focal consolidation identified. Pleural spaces: No significant pleural fluid. No pneumothorax detected. Heart/Mediastinum: Heart size is stable compared to prior exam. No pulmonary vascular congestion. Bones/joints: Bones are diffusely osteopenic. Mild thoracic compression deformity, without significant change from 01/19/2024. Prior kyphoplasty near the thoracolumbar junction. XR/XR chest 1V portable [id number] IMPRESSION: Probable mild chronic fibrosis in the lung bases. Otherwise, no obvious acute cardiopulmonary abnormality detected on AP portable chest radiograph..
--- NOTE | 2024-11-24 08:59 | W.ED.WEAKNES ---
HPI - Weakness General: Chief complaint: Weakness Stated complaint: weakness Time Seen by Provider: 11/24/24 08:14 History of Present Illness: 84-year-old male with multiple comorbidities who lives alone presents to the emergency department complaining of unable to get out of his chair. Patient reports he has had chronic progressive weakness. About a year ago he was using a cane, about 6 or 8 months ago he started using a walker. He now has home health helping him do activities of daily living 3 days a week. This morning, he could not get out of his chair and EMS was called. After realizing how weak he was, they advised he come to the emergency department. Patient reports has been no abrupt changes in his health. He has gone to physical therapy in the rehabilitation center approximately 2 years ago based on his recollection. He states that helped him significantly. He does have chronic lower extremity edema and says he takes Lasix. Associated symptoms: Denies chest pain, chills, dysuria, fever(s), headache(s), nausea, syncope or vomiting Review of Systems General: Reports: 10 or more systems reviewed and unremarkable except in HPI and below Narrative: Patient reports chronic dyspnea on exertion. Chronic bilateral lower extremity edema. Chronic intermittent cough. Chronic generalized weakness. He does not endorse any fever, chills, fainting, chest pain, palpitations, diarrhea, melena, hematochezia. Const: Denies: fever(s), chills or body aches Eyes: Denies: change in vision ENMT: Denies: throat pain Card: Denies: chest pain or syncope GI: Denies: abdominal pain, nausea, vomiting or diarrhea : Denies: flank pain, dysuria or urinary frequency Musc: Denies: neck pain, back pain or extremity pain Skin/Breast: Denies: rash Neuro: Denies: headache(s), numbness in extremities or lack of coordination PFS ED PFSH: Medical History Paroxysmal atrial fibrillation Cardiomyopathy Chronic systolic CHF (congestive heart failure) 08/19/22: LVEF 15% CAD (coronary artery disease) BPH loc w urin obs/LUTS Chronic decreased force of stream without RUTIs gross hematuria (previously prior to catheterization placement) or retention. 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, initial treatment with imiquimod, follows with Dr Gil Chronic alcohol use History of smoking Nicotine dependence, chewing tobacco, with other nicotine-induced disorders COPD (chronic obstructive pulmonary disease) Compression fx, lumbar spine 07/2022 L1, L3, L4 Lumbar disc disease with radiculopathy Amputated toe of left foot discharged from wound care 07/05/22, follows with Dr Brunner PAC (premature atrial contraction) Chronic hyponatremia Severe peripheral arterial disease Malignant neoplasm of glottis Claudication HTN (hypertension) History of nonmelanoma skin cancer Surgical History Status post kyphoplasty (08/06/22) L1, L3, L4 S/P right coronary artery (RCA) stent placement (08/30/22) S/P peripheral artery angioplasty with stent placement 12/2021 Left common/External Iliac Artery with 80% stenosis treated with AB ARMADA [id number]. 8.0 x 19 mm Omnilink stent was placed. Left Proximal Superficial Femoral Artery with 80-90 % stenosis treated with AB ARMADA 35 [id number]. 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 He is alert, conversational, interactive. He has diminished breath sounds posteriorly with some rales. He has bilateral lower extremity edema. He has fair hygiene. He has dried urine on his left lower extremity. He has some body odors appreciable. He has mild tachypnea. Const: COMMON NORMALS: no limitations, alert and well nourished EXAM LIMITATIONS: no altered mental status HENMT: COMMON NORMALS: normocephalic, atraumatic and external ears normal HEAD & SCALP: normocephalic and atraumatic EXTERNAL EAR: Yes external ears normal MOUTH: no muffled voice Eye: COMMON NORMALS: EOMs intact bilaterally, conjunctivae normal and no scleral icterus CONJUNCTIVA: Yes conjunctivae normal Neck/C-Spine: COMMON NORMALS: no JVD GENERAL: Yes normal visual inspection and Yes trachea midline Cardio: COMMON NORMALS: no JVD, regular rate and regular rhythm RATE: regular rate RHYTHM: regular rhythm GI: COMMON NORMALS: Soft to palpation and non-tender PALPATION: Yes Soft to palpation and No Guarding due to palpation present (GI) Extremity: COMMON NORMALS: normal to inspection Neuro: COMMON NORMALS: moves all extremities, no focal motor deficits and no sensory deficits noted SENSORIUM/ORIENTATION: Yes alert SPEECH: speech normal Psych: COMMON NORMALS: mental status grossly normal, Normal thought process present, cooperative, normal affect and speech normal SPEECH: Yes normal speech THOUGHT PROCESS: Normal thought process present Skin: COMMON NORMALS: turgor normal and no jaundice GENERAL SKIN EXAM: turgor normal Course Vital Signs: Vital signs: Vital Signs Temperature 98.1 F 11/24/24 08:14 Pulse Rate 85 11/24/24 10:00 Respiratory Rate 18 11/24/24 08:14 Blood Pressure 121/66 11/24/24 10:00 Pulse Oximetry 93 11/24/24 10:00 Oxygen Delivery Me thod Room Air 11/24/24 08:14 MDM - Weakness Medical Decision Making 84-year-old male presents with chronic debility and inability to care for himself. He does have congestive heart failure and this may be an exacerbation. Patient states that he has not noticed any abrupt changes to his health. He does have home health but it is not enough since he is no longer able to do simple tasks like getting himself to the bathroom, and getting himself to bed, etc. EKG was obtained at 9:25 AM EP interpretation. Sinus rhythm suspected although there is some artifact. Frequent PVCs are noted. Stites within normal limits. W[place] intervals right around 200 ms. QRS is 101 ms. QTc is normal. No concerning ST segment elevations or depressions. White count normal. Hemoglobin stable. Platelets normal. Patient's sodium and chloride are both mildly low. Patient's typical sodium is around 139. He does have a bump in his total bilirubin, AST, ALT, alkaline phosphatase. This could be right heart failure with congestion in the liver. Patient is not presenting with any pain, nausea, vomiting, or any symptoms to suggest acute hepatobiliary infectious or obstructive process. proBNP is elevated to 711. We will do an ultrasound of the right upper quadrant as a precaution for further evaluation but this is most likely right heart failure. Lasix 40 [address] has been [address] Dr[address] Pereira paged for admission Update 0999 Dr Pereira repaged for admission US being performed. Update 1021 Dr Pereira accepted for admission. Lab Data 11/24/24 08:40 11/24/24 08:40 Radiology Impressions Chest X-Ray 11/24/24 08:58 IMPRESSION: Probable mild chronic fibrosis in the lung bases. Otherwise, no obvious acute cardiopulmonary abnormality detected on AP portable chest radiograph.. Laboratory Results WBC 7.58 10^3/uL (3.29-11.43) 11/24/24 08:40 RBC 4.23 10^6/uL (3.85-5.65) 11/24/24 08:40 Hgb 11.70 g/dL (11.27-16.99) 11/24/24 08:40 Hct 36.6 % (37-53) L 11/24/24 08:40 MCV 86.5 fl (82-101) 11/24/24 08:40 MCH 27.7 pg (27-33) 11/24/24 08:40 MCHC 32.0 g/dL (30-55) 11/24/24 08:40 RDW 22.4 % (12.1-15.1) H 11/24/24 08:40 Plt Count 279 10^3/cmm (157-399) 11/24/24 08:40 MPV 9.6 fL (7.4-10.4) 11/24/24 08:40 Neut % (Auto) 53.4 % 11/24/24 08:40 Lymph % (Auto) 19.4 % 11/24/24 08:40 [place] % (Auto) 13.6 % 11/24/24 08:40 Eos % (Auto) 11.6 % 11/24/24 08:40 Baso % (Auto) 1.6 % 11/24/24 08:40 Neut # (Auto) 4.05 10^3/uL (1.8-7.7) 11/24/24 08:40 Lymph # (Auto) 1.5 10^3/uL (0.8-4.8) 11/24/24 08:40 [place] # (Auto) 1.0 10^3/uL (0.2-0.9) H 11/24/24 08:40 Eos # (Auto) 0.9 10^3/uL (0.0-0.8) H 11/24/24 08:40 Baso # (Auto) 0.1 10^3/uL (0.0-0.1) 11/24/24 08:40 Nucleated RBC % (auto) 0 % 11/24/24 08:40 Nucleated RBCs # 0.0 /100WBC 11/24/24 08:40 Sodium 135 mmol/L (136-145) L 11/24/24 08:40 Potassium 3.8 mmol/L (3.5-5.1) 11/24/24 08:40 Chloride 94 mmol/L (98-107) L 11/24/24 08:40 Carbon Dioxide 23 mmol/L (22-29) 11/24/24 08:40 Anion Gap 21.8 (5-19) H 11/24/24 08:40 BUN 12 mg/dL (8-23) 11/24/24 08:40 Creatinine 1.0 mg/dL (0.7-1.2) 11/24/24 08:40 GFR Calculation Not Reportable 11/24/24 08:40 Glucose 105 mg/dL (65-115) 11/24/24 08:40 Calculated Osmolality 280 mOsm/kg (285-295) L 11/24/24 08:40 Calcium 9.0 mg/dL (8.5-10.5) 11/24/24 08:40 Magnesium 1.7 mg/dL (1.7-2.3) 11/24/24 08:40 Total Bilirubin 2.1 mg/dL (0.15-1.2) H 11/24/24 08:40 AST 104 U/L (0-40) H 11/24/24 08:40 ALT 71 U/L (0-41) H 11/24/24 08:40 Alkaline Phosphatase 208 U/L (40-130) H 11/24/24 08:40 NT-Pro-B Natriuret Pep 711 pg/mL (0-450) H 11/24/24 08:40 Total Protein 6.9 g/dL (6.6-8.7) 11/24/24 08:40 Albumin 3.8 g/dL (3.5-5.2) 11/24/24 08:40 Globulin 3.1 g/dL (1.3-4.6) 11/24/24 08:40 XR interpretation done by ED provider, pending radiology final review Discharge Plan Discharge Patient Disposition: Placed in Observation Clinical Impression: Adult failure to thrive, Physical deconditioning, CHF (congestive heart failure), Elevated LFTs Coding Level of Care Code ED Eyeglass Frame Truer for Chg Fwd Related Data Home Medications ?Medication ?Instructions ?Recorded ?Confirmed folic acid 1 mg tablet 1 mg PO DAILY 08/03/22 09/14/24 acetaminophen 325 mg tablet 650 mg PO Q6H PRN Pain/fever 08/19/22 09/14/24 (Tylenol) atorvastatin 80 mg tablet 40 mg PO QPM 12/05/23 09/14/24 magnesium oxide 400 mg (241.3 mg 400 mg PO DAILY 06/22/24 09/14/24 magnesium) tablet furosemide 40 mg tablet 40 mg PO DAILY 07/04/24 09/14/24 Previous Rx's ?Medication ?Instructions ?Recorded amiodarone 200 mg tablet ([place]) 200 mg PO DAILY #30 tabs 09/02/22 tamsulosin 0.4 mg capsule 0.4 mg PO QPM #30 caps 09/02/22 metolazone 2.5 mg tablet 2.5 mg PO DAILY #90 tabs 10/26/22 albuterol sulfate 90 mcg/actuation 2 inh inhalation Q6H PRN shortness 12/05/23 aerosol inhaler of breath or wheezing #8 grams potassium chloride 20 mEq See Rx Instructions .Route 01/03/24 tablet,extended release .COMPLEX #180 tabs [id number] orthopedic shoes #1 ea 04/10/24 meclizine 25 mg tablet 12.5 mg (1/2 x 25 mg) PO TID PRN 06/30/24 dizziness #30 tabs sacubitril 24 mg-valsartan 26 mg 1 tab PO BID #60 tabs 07/04/24 tablet Allergies Allergy/AdvReac Type Severity Reaction Status Date / Time No Known Allergies Allergy Verified 09/14/24 10:04
[2024-11-24 09:15] LABS: Hematocrit 36.6 % (37-53); Hemoglobin 11.70 g/dL (11.27-16.99); Mean Corpuscular HGB Conc 32.0 g/dL (30-55); Mean Corpuscular Hemoglobin 27.7 pg (27-33); Mean Corpuscular Volume 86.5 fl (82-101); Nucleated Red Blood Cells % 0 %; Platelet Count 279 10^3/cmm (157-399); Red Blood Count 4.23 10^6/uL (3.85-5.65); White Blood Count 7.58 10^3/uL (3.29-11.43)
--- NOTE | 2024-11-24 09:25 | ECG_ITS ---
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 Measurements Intervals [place] Rate: 86 P: 75 MA: 197 QRS: 1 QRSD: 101 T: 9 QT: 397 QTc: 475 Interpretive Statements SINUS RHYTHM WITH FREQUENT VENTRICULAR PREMATURE COMPLEXES Compared to ECG 06/30/2024 15:57:25 Atrial fibrillation no longer present Aberrant conduction of supraventricular beat(s) no longer present Intraventricular conduction delay no longer present ST (T wave) deviation no longer present Electronically Signed On 11-29-2024 09:16:43 CDT by Rober Marx M.D. [id number]
[2024-11-24 09:42] LABS: Alanine Aminotransferase 71 U/L (0-41); Albumin Level 3.8 g/dL (3.5-5.2); Alkaline Phosphatase 208 U/L (40-130); Anion Gap 21.8 (5-19); Aspartate Amino Transferase 104 U/L (0-40); Blood Urea Nitrogen 12 mg/dL (8-23); Calcium 9.0 mg/dL (8.5-10.5); Carbon Dioxide 23 mmol/L (22-29); Chloride 94 mmol/L (98-107); Creatinine Clr Calc Pharmacy 59.0185; Globulin 3.1 g/dL (1.3-4.6); Glucose 105 mg/dL (65-115); Magnesium 1.7 mg/dL (1.7-2.3); NT Pro B Type Natriuretic Pept 711 pg/mL (0-450); Osmolality Calculated 280 mOsm/kg (285-295); Potassium 3.8 mmol/L (3.5-5.1); Sodium 135 mmol/L (136-145); Total Protein 6.9 g/dL (6.6-8.7)
--- NOTE | 2024-11-24 09:59 | USR_ITS ---
PROCEDURE INFORMATION: Exam: US Abdomen, Limited; Right Upper Quadrant Exam date and time: 11/24/2024 10:11 AM Age: 84 years old Clinical indication: Abnormal lab test; abnormal liver function with elevated liver enzymes (abnormal LFTs) TECHNIQUE: Imaging protocol: Real time ultrasound of the abdomen with image documentation. Limited exam focused on the right upper quadrant. COMPARISON: US abdomen limited 05/17/2024 FINDINGS: Limitations: Very limited acoustic window due to obscuring bowel gas throughout the upper abdomen. Liver: The liver is borderline enlarged and diffusely echogenic, compatible with diffuse hepatic steatosis. This attenuates the ultrasound beam and limits visualization of the deeper portions of the liver. Given this limitation, no focal abnormality detected within the imaged portions of the liver. Hepatopetal flow is present in the portal vein. Gallbladder: See Biliary ducts finding. Biliary ducts: No biliary duct dilation. No gallbladder wall thickening. Multiple stones layer dependently within the gallbladder. Pancreas: Pancreas obscured by bowel gas Right kidney: Limited views of the right kidney show grossly normal size without hydronephrosis. US/US gall bladder [id number] IMPRESSION: 1. Cholelithiasis without sonographic features of acute cholecystitis or biliary duct obstruction. 2. Hepatic steatosis.
[2024-11-24] MEDS: FUROsemide 10 mg/mL SDV 4mL 40 MG IVP (10:02)
[2024-11-24 11:06] LABS: Glucose Urine UA Negative (Normal); Nitrate Urine Negative (Negative); Specific Gravity, Urine 1.010 (1.005-1.030)
[2024-11-24 11:11] LABS: Add Urine Microscopic? YES
--- NOTE | 2024-11-24 11:12 | PC.PHAR ---
Spoke to patient and he stated he didn't know his medications but his nurse Annette at [facility] in [place] knows them. I had already spoke to the [facility] and they stated he hadn't received medication since June, but did say he had a few active prescriptions. Spoke to Annette and she states Patient is incompliant and maybe takes his medication once a week. Nurse Annette goes out weekly to set up medications and calls in refills and Patient doesn't pick them up. [facility]oke to [facility] and they stated they haven't filled anything since July and didn't mention anything about having medications not picked up .Nurse Prema states patient gets his prescriptions at [facility] because Patient thinks [facility] charges to much .Patient has eye problems so doesn't drive much,stated by Annette .
[2024-11-24 11:18] LABS: UA Slide Review UA Slide Review Perf
[2024-11-24 11:46] LABS: Procalcitonin 0.21 ng/mL (0-0.5)
[2024-11-24 13:09] LABS: Thyroid Stimulating Hormone 15.31 uIU/mL (0.27-4.20)
[2024-11-24] MEDS: heparin 5,000 unit/mL INJ 1 mL 5000 UNIT SUBCUT (13:37)
--- NOTE | 2024-11-24 16:52 | PM.HP ---
Providers/Chief Complaint Admitting Physician: Alexander Patton MD Primary Care Provider: [place] Park APRN Chief Complaint: weakness History of Present Illness Reginald Pelaez is a 84 year old male with past medical history of CAD, post PCI to RCA, atrial fibrillation, systolic and diastolic heart failure with last known EF of 40% back in 2023, moderate aortic valve stenosis, not on anticoagulation for atrial fibrillation was brought to the ER today via EMS as he was not able to get out of chair. Patient complains of bilateral lower limb weakness which has been getting worse over the last couple of weeks to a month. Patient lives by himself. Patient denies any nausea, vomiting, headache, dizziness, changes in medication, chest pain, difficulty in breathing, abdominal pain, weakness more in 1 limb than another, slurred speech, history of stroke. Does give history of occasional fall. Denies any fall in last 1 week. Is able to walk around with a walker. Review of Systems General: Reports: 10 or more systems reviewed and unremarkable except in HPI and below Const: Denies: fever(s), chills, body aches, change in appetite, change in weight, malaise, night sweats, diaphoresis, change in sleep pattern, daytime sleepiness or snoring Eyes: Denies: change in vision, blurry vision, photophobia, eye discomfort or eye discharge ENMT: Denies: throat pain, enlarged tonsils, hoarseness, mouth pain, oral sores, dry mouth, tinnitus, nasal congestion or post nasal drip Card: Denies: chest pain, palpitations, irregular heart rhythm, edema, swelling of feet/ankles, lightheadedness, syncope, pre-syncope, dyspnea on exertion, orthopnea, leg pain with exertion or acrocyanosis Resp: Denies: dyspnea, productive cough, non-productive cough, wheezing, stridor, pain on inspiration, change in phlegm color, hemoptysis or chest congestion GI: Denies: abdominal pain, nausea, vomiting, hematemesis, coffee ground emesis, dysphagia, heartburn, diarrhea, constipation, bloating, GI cramping, change in bowel habits, pain on defecation, hematochezia or melena : Denies: flank pain, difficulty urinating, dysuria, urinary frequency, urinary urgency, urinary hesitancy, urinary dribbling, difficulty starting urination, change in urine stream, nocturia or hematuria Musc: Denies: neck pain, back pain, extremity pain, joint pain, joint swelling, joint redness, joint stiffness or limited range of motion Neuro: Denies: headache(s), numbness in extremities, weakness in extremities, sensory changes, lack of coordination, difficulty walking, frequent falls, dizziness, vertigo, confusion, Slurred speech present, difficulty communicating thoughts or seizure-like activity Psych: Denies: anxiety, depression, mood swings, panic attacks, hopelessness or irritability Endo: Denies: polyuria, polydipsia, tired all the time, cold intolerance, excessive sweating, flushing or heat intolerance Brien/Lymph: Denies: easy bruising or easy bleeding All/Imm: Denies: tongue swelling, facial swelling or acute wheezing Medications/Allergies Home Medications ?Medication ?Instructions ?Recorded ?Confirmed ?Last Taken ?Type folic acid 1 mg tablet 1 mg PO DAILY 08/03/22 11/24/24 12/05/23 History acetaminophen 325 mg tablet 650 mg PO Q6H PRN Pain/fever 08/19/22 11/24/24 Unknown History (Tylenol) amiodarone 200 mg tablet (Pacerone) 200 mg PO DAILY #30 tabs 09/02/22 11/24/24 12/05/23 Rx tamsulosin 0.4 mg capsule 0.4 mg PO QPM #30 caps 09/02/22 11/24/24 09/08/22 Rx albuterol sulfate 90 mcg/actuation 2 inh inhalation Q6H PRN shortness 12/05/23 11/24/24 Unknown Rx aerosol inhaler of breath or wheezing #8 grams atorvastatin 80 mg tablet 40 mg PO QPM 12/05/23 11/24/24 12/04/23 History potassium chloride 20 mEq See Rx Instructions .Route 01/03/24 11/24/24 Unknown Rx tablet,extended release .COMPLEX #180 tabs [id number] orthopedic shoes #1 ea 04/10/24 11/24/24 Unknown Rx magnesium oxide 400 mg (241.3 mg 400 mg PO DAILY 06/22/24 11/24/24 Unknown History magnesium) tablet meclizine 25 mg tablet 12.5 mg (1/2 x 25 mg) PO TID PRN 06/30/24 11/24/24 Unknown Rx dizziness #30 tabs furosemide 40 mg tablet 40 mg PO DAILY 07/04/24 11/24/24 Unknown History albuterol sulfate 2.5 mg/3 mL 2.5 mg inhalation Q6H PRN 11/24/24 11/24/24 Unknown History (0.083 %) solution for nebulization Shortness Of Breath Or Wheezing montelukast 10 mg tablet 10 mg PO BEDTIME 11/24/24 11/24/24 Unknown History polymyxin B sulfate 10,000 1 drp ophthalmic (eye) QID 11/24/24 11/24/24 Unknown History unit-trimethoprim 1 mg/mL eye drops sacubitril 24 mg-valsartan 26 mg 1 tab PO BID 11/24/24 11/24/24 Unknown History tablet (Entresto) Allergies Allergy/AdvReac Type Severity Reaction Status Date / Time No Known Allergies Allergy Verified 09/14/24 10:04 PFSH Acute PFSH: Medical History (Updated 11/24/24 @ 17:02 by Alexander Patton MD) Moderate aortic stenosis Compression fracture Greater trochanteric bursitis of right hip Paroxysmal atrial fibrillation Cardiomyopathy Chronic systolic CHF (congestive heart failure) Systolic and diastolic with last known EF 45% in 2023 CAD (coronary artery disease) BPH loc w urin obs/LUTS Chronic decreased force of stream without RUTIs gross hematuria (previously prior to catheterization placement) or retention. 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, initial treatment with imiquimod, follows with Dr Gil Chronic alcohol use History of smoking Nicotine dependence, chewing tobacco, with other nicotine-induced disorders COPD (chronic obstructive pulmonary disease) Compression fx, lumbar spine 07/2022 L1, L3, L4 Lumbar disc disease with radiculopathy Amputated toe of left foot discharged from wound care 07/05/22, follows with Dr Brunner PAC (premature atrial contraction) Chronic hyponatremia Severe peripheral arterial disease Malignant neoplasm of glottis Claudication HTN (hypertension) History of nonmelanoma skin cancer Surgical History Status post kyphoplasty (08/06/22) L1, L3, L4 S/P right coronary artery (RCA) stent placement (08/30/22) S/P peripheral artery angioplasty with stent placement 12/2021 Left common/External Iliac Artery with 80% stenosis treated with AB ARMADA [id number]. 8.0 x 19 mm Omnilink stent was placed. Left Proximal Superficial Femoral Artery with 80-90 % stenosis treated with AB ARMADA 35 [id number] [id number]. 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 History of hip surgery right hip fracture repair Family History Other No pertinent family history Social History Smoking and tobacco/nicotine status: never used tobacco/nicotine Alcohol intake: current Alcohol type: hard liquor Substance/Drug Use: current Substance/Drug use frequency: Special occassions/opportunity only Lives independently: Yes Household members: none Housing: House Vitals/I&O/Wt Last Vital Signs Temp 97.5 F L 11/24/24 16:10 Pulse 85 11/24/24 16:10 Resp 16 11/24/24 16:10 BP 107/67 11/24/24 16:10 Pulse Ox 98 11/24/24 16:10 O2 Del Method Room Air 11/24/24 16:10 11/24/24 11/24/24 11/24/24 06:59 14:59 22:59 Output Total 175 / 175 400 / 575 Balance -175 / -175 -400 / -575 Weight last 48 hrs Weight 76.249 kg Weight 77.111 kg Physical Exam Narrative: General: No acute distress, AO x3, elderly, chronically sick appearing, multiple superficial scab present on body with different stages, HEENT: PERRLA, pupils bilaterally equal and reactive Chest: Normal vesicular breath sounds, no added sounds, equal good air entry bilaterally CVS: S1-S2 regular, no murmurs, no tachycardia, no gallops, no rubs Abdomen: Soft, nontender, no organomegaly, bowel sounds present Neuro: No focal deficits, no facial deformity, AO x3, power 5/5 in all limbs Data 11/24/24 08:40 11/24/24 08:40 A&P Assessment and plan (1) Generalized weakness: (2) Chronic systolic CHF (congestive heart failure): (3) Cardiomyopathy: (4) S/P right coronary artery (RCA) stent placement: (5) Paroxysmal atrial fibrillation: (6) Adult failure to thrive: (7) Elevated LFTs: (8) BPH loc w urin obs/LUTS: (9) COPD (chronic obstructive pulmonary disease): (10) Moderate aortic stenosis: Plan 84-year-old gentleman with history of CAD, post PCI, atrial fibrillation not on anticoagulation, congestive heart failure who lives by himself presents to the ER because of bilateral lower limb weakness along with concerns for failure to thrive and not able to take care of himself. Patient currently does not have any signs and symptoms of infection. Denies any dysuria. Is currently on room air. Denies any cough. Denies any chest pain. Check TSH, vitamin B12, CPK, respiratory viral panel., CT head given recurrent falls. Complains of lower limb weakness. No concerns for stroke for now. Denies any focal weakness. Getting CT head as above anyways. Failure to thrive most likely in setting of advanced age. History of CAD: Denies any active chest pain. Hold off on home dose of statin, baby aspirin History of congestive heart failure: Currently euvolemic. Continue with home dose of Entresto. Received IV Lasix in the ER. Continue with oral Lasix from a.m. Fluid restriction to less than 1500 cc. Appreciate last echocardiogram showing moderate aortic stenosis, grade 2 diastolic dysfunction along with 40% EF back in 2023. Transaminitis: Could be in setting of congestive hepatopathy Appreciate liver ultrasound done in the ER. Continue to monitor daily. Check GGT, LDH.. Case management consultation patient states he is not able to take care of himself and would like to be transition to SNF at least for short-term. Patient is elderly and lives by himself and does have weakness in lower limbs. He will be appropriate for SNF. First possibility of transitioning to assisted living. He is agreeable. Full code Cardiac diet. Fluid restriction. Protonix for PUD prophylaxis Heparin 5000 Q12 hourly for DVT prophylaxis PDMP PDMP Reviewed: Not Reviewed Attestations Medical Necessity Statement*: Admission under observation for management of failure to thrive passive discharge planning is sought in an elderly with history of CAD, congestive heart failure with moderate aortic stenosis Diagnoses Generalized weakness R53.1 Chronic systolic CHF (congestive heart failure) I50.22 Ischemic cardiomyopathy I25.5 Cardiomyopathy type: ischemic S/P right coronary artery (RCA) stent placement Z95.5 Paroxysmal atrial fibrillation I48.0 Adult failure to thrive R62.7 Elevated LFTs R79.89 BPH loc w urin obs/LUTS N40.1 COPD (chronic obstructive pulmonary disease) J44.9 Moderate aortic stenosis I35.0
--- NOTE | 2024-11-24 16:57 | CTR_ITS ---
PROCEDURE INFORMATION: Exam: CT Head Without Contrast Exam date and time: 11/24/2024 5:46 PM Age: 84 years old Clinical indication: Injury or trauma; Fall; Blunt trauma (contusions or hematomas); Additional info: Reccurent falls TECHNIQUE: Imaging protocol: Computed tomography of the head without contrast. Radiation optimization: All CT scans at this facility use at least one of these dose optimization techniques: automated exposure control; mA and/or kV adjustment per patient size (includes targeted exams where dose is matched to clinical indication); or iterative reconstruction. COMPARISON: RF FL barium swallow modifd [id number] 06/22/2024 11:37 AM RADIATION DOSE METRICS: Total DLP (mGy-cm): 1087.28 FINDINGS: Brain: Moderate diffuse cortical volume loss. Mild hypodensities in supratentorial periventricular and subcortical white matter, consistent with microangiopathy. No intracranial hemorrhage. Cerebral ventricles: No ventriculomegaly. Paranasal sinuses: Visualized sinuses are unremarkable. No fluid levels. Mastoid air cells: Visualized mastoid air cells are well aerated. Orbital cavities: Prior cataract surgery. Hyperdense material or prosthesis in the left globe. Bones: Unremarkable. No acute fracture. Soft tissues: Unremarkable. Vasculature: No hyperdense artery. CT/CT head wo con* [id number] IMPRESSION: No acute intracranial abnormality.
[2024-11-24 18:43] LABS: Free T4 Free Thyroxine 1.33 ng/dL (0.82-1.77)
[2024-11-24 19:38] LABS: Coronavirus 229E,HKU1,NL63,OC4 Not Detected (NOT DETECT); Parainfluenza Virus Type 1 Not Detected (NOT DETECT); Parainfluenza Virus Type 2 Not Detected (NOT DETECT); Parainfluenza Virus Type 3 Not Detected (NOT DETECT); Parainfluenza Virus Type 4 Not Detected (NOT DETECT); SARS-COV-2 Not Detected (NOT DETECT)
[2024-11-25] VITALS (26 sets, daily range): BP systolic 70–144; BP diastolic 42–74; PULSE 68–105; RESP 17–20; TEMP 36.3–37.1; O2SAT 92–96
[2024-11-25] MEDS: heparin 5,000 unit/mL INJ 1 mL 5000 UNIT SUBCUT ×3 (00:04→23:56)
[2024-11-25 03:48] LABS: Hematocrit 31.4 % (37-53); Hemoglobin 10.10 g/dL (11.27-16.99); Mean Corpuscular HGB Conc 32.2 g/dL (30-55); Mean Corpuscular Hemoglobin 27.7 pg (27-33); Mean Corpuscular Volume 86.3 fl (82-101); Nucleated Red Blood Cells % 0 %; Platelet Count 174 10^3/cmm (157-399); Red Blood Count 3.64 10^6/uL (3.85-5.65); White Blood Count 7.57 10^3/uL (3.29-11.43)
[2024-11-25 04:06] LABS: Alanine Aminotransferase 53 U/L (0-41); Albumin Level 3.4 g/dL (3.5-5.2); Alkaline Phosphatase 179 U/L (40-130); Anion Gap 18.3 (5-19); Aspartate Amino Transferase 84 U/L (0-40); Blood Urea Nitrogen 13 mg/dL (8-23); Calcium 8.5 mg/dL (8.5-10.5); Carbon Dioxide 24 mmol/L (22-29); Chloride 95 mmol/L (98-107); Creatinine Clr Calc Pharmacy 53.4007; Globulin 2.4 g/dL (1.3-4.6); Glucose 114 mg/dL (65-115); Magnesium 1.5 mg/dL (1.7-2.3); Osmolality Calculated 279 mOsm/kg (285-295); Potassium 3.3 mmol/L (3.5-5.1); Sodium 134 mmol/L (136-145); Total Protein 5.8 g/dL (6.6-8.7)
[2024-11-25 04:11] LABS: Procalcitonin 0.25 ng/mL (0-0.5)
--- NOTE | 2024-11-25 09:15 | ECG_ITS ---
[facility]: [facility]24[facility]25 Pat Name: Reginald Pelaez Department: Room: 261 Gender: Male Elevator Attendant: : 1940 Requested By: Alexander Patton Order Number: [id number] Marcella MD: Rober Marx M.D. Measurements Intervals [place] Rate: 133 P: 0 MT: 0 QRS: 7 QRSD: 111 T: 69 QT: 362 QTc: 540 Interpretive Statements ATRIAL FLUTTER/TACHYCARDIA WITH RAPID VENTRICULAR RESPONSE WITH ABERRANT CONDUCTION OR VENTRICULAR PREMATURE COMPLEXES MODERATE INTRAVENTRICULAR CONDUCTION DELAY [110+ ms QRS DURATION] NONSPECIFIC ST & T-WAVE ABNORMALITY Compared to ECG 11/24/2024 09:25:27 Aberrant conduction of supraventricular beat(s) now present Intraventricular conduction delay now present T-wave abnormality now present Sinus rhythm no longer present Electronically Signed On 11-29-2024 09:13:13 CDT by Rober Marx M.D. [email or web address]
[2024-11-25] MEDS: amiodarone 150 MG/100 ML PREMIX 400 MG IV (10:00)
[2024-11-25] MEDS: polymyxin-trimethoprim Op Soln 10 mL Btl 1 DROP EYE-LEFT ×4 (10:31→21:06)
[2024-11-25] MEDS: magnesium sulfate premix 1 GM/100 ML PIGGYBACK IV (12:56)
--- NOTE | 2024-11-25 13:09 | P.PN_ITS ---
Subjective 2 Subjective: No acute events overnight. Today morning on examination patient awake and alert. He did have an episode of A-fib with RVR. His blood pressures today morning down to 70 systolic which has been confirmed with manual blood pressures in both arms. The patient remains asymptomatic. Complaining of weakness. Vitals/I&O/Wt Last Vital Signs Temp 98.2 F 11/25/24 11:26 Pulse 92 11/25/24 11:26 Resp 18 11/25/24 11:26 BP 70/42 11/25/24 11:27 Pulse Ox 93 11/25/24 11:26 O2 Del Method Room Air 11/25/24 11:26 11/24/24 11/25/24 11/25/24 22:59 06:59 14:59 Intake Total 480 / 480 645 / 645 Output Total 1225 / 1400 175 / 1575 Balance -745 / -920 -175 / -1095 645 / 645 Weight last 48 hrs Weight 80.513 kg Weight 136.078 kg Weight 76.249 kg Weight 77.111 kg Physical Exam 2 Narrative: General: No acute distress, AO x3, elderly, chronically sick appearing, multiple superficial scab present on body with different stages, HEENT: PERRLA, pupils bilaterally equal and reactive Chest: Normal vesicular breath sounds, no added sounds, equal good air entry bilaterally CVS: S1-S2 regular, no murmurs, no tachycardia, no gallops, no rubs Abdomen: Soft, nontender, no organomegaly, bowel sounds present Neuro: No focal deficits, no facial deformity, AO x3, power 5/5 in all limbs Data 11/25/24 03:32 11/25/24 03:32 A&P Assessment and plan (1) Generalized weakness: (2) Hypotension: (3) Subclinical hypothyroidism: (4) Chronic systolic CHF (congestive heart failure): (5) Cardiomyopathy: (6) S/P right coronary artery (RCA) stent placement: (7) Paroxysmal atrial fibrillation: (8) Adult failure to thrive: (9) Elevated LFTs: (10) BPH loc w urin obs/LUTS: (11) COPD (chronic obstructive pulmonary disease): (12) Moderate aortic stenosis: Plan 84-year-old gentleman with history of CAD, post PCI, atrial fibrillation not on anticoagulation, congestive heart failure who lives by himself presents to the ER because of bilateral lower limb weakness along with concerns for failure to thrive and not able to take care of himself. Patient currently does not have any signs and symptoms of infection. Denies any dysuria. Is currently on room air. Denies any cough. Denies any chest pain. Complains of lower limb weakness. No concerns for stroke for now. Denies any focal weakness. Getting CT head as above anyways. Failure to thrive most likely in setting of advanced age. Generalized weakness could be in setting of hypotension. Systolic blood pressure down to 70s after getting morning dose of Entresto. Could be in setting of severe subclinical hypothyroidism or in setting of occasional A-fib with RVR. Hypotension: Goal blood pressure less than 140/90 mmHg with mean over 65. For now we will discontinue Entresto. 500 cc fluid bolus over 3 hours, 1 dose of IV albumin. Check cortisol level. Subclinical hypothyroidism: TSH of 15. Normal free T3 and free T4. Given advanced age, TSH of more than 10 will start on levothyroxine 50 mcg daily. Patient should have a repeat thyroid panel in 4 weeks. A-fib with RVR: Heart rates occasionally going over more than 120. Received 150 mg of IV amiodarone bolus. Change amiodarone to 200 mg twice daily. If continues to have episodes of paroxysmal RVR can start on digoxin after appropriate digoxin load. History of CAD: Denies any active chest pain. Hold off on home dose of statin, baby aspirin History of congestive heart failure: Currently euvolemic. Holding Entresto as above. Patient euvolemic. Hypotensive today. Getting 500 cc bolus. Hold off on Lasix for now. Lasix as per fluid status or weight gain of 5 pounds only. Fluid restriction to less than 1500 cc. Appreciate last echocardiogram showing moderate aortic stenosis, grade 2 diastolic dysfunction along with 40% EF back in 2023. Transaminitis: Improving. Could be in setting of congestive hepatopathy Appreciate liver ultrasound done in the ER. Continue to monitor daily. Appreciate GGT, LDH.. Case management consultation patient states he is not able to take care of himself and would like to be transition to SNF at least for short-term. Patient is elderly and lives by himself and does have weakness in lower limbs. He will be appropriate for SNF. First possibility of transitioning to assisted living. He is agreeable. Full code Cardiac diet. Fluid restriction. Protonix for PUD prophylaxis Heparin 5000 Q12 hourly for DVT prophylaxis PDMP PDMP Reviewed: Not Reviewed Attestations 2 Medical Necessity Statement*: Reginald Pelaez is being changed to inpatient status as stay will now exceed 2 midnights. Ongoing hospital care is necessary for hypotension in a patient with history of congestive heart failure on multiple antihypertensive, A-fib with RVR while safe discharge planning is sought Diagnoses Generalized weakness R53.1 Hypotension I95.9 Subclinical hypothyroidism E03.8 Chronic systolic CHF (congestive heart failure) I50.22 Ischemic cardiomyopathy I25.5 Cardiomyopathy type: ischemic S/P right coronary artery (RCA) stent placement Z95.5 Paroxysmal atrial fibrillation I48.0 Adult failure to thrive R62.7 Elevated LFTs R79.89 BPH loc w urin obs/LUTS N40.1 COPD (chronic obstructive pulmonary disease) J44.9 Moderate aortic stenosis I35.0
[2024-11-26] VITALS (12 sets, daily range): BP systolic 93–119; BP diastolic 50–76; PULSE 60–94; RESP 16–19; TEMP 36.3–36.7; O2SAT 90–97
[2024-11-26 06:18] LABS: Hematocrit 32.6 % (37-53); Hemoglobin 10.20 g/dL (11.27-16.99); Mean Corpuscular HGB Conc 31.3 g/dL (30-55); Mean Corpuscular Hemoglobin 28.4 pg (27-33); Mean Corpuscular Volume 90.8 fl (82-101); Nucleated Red Blood Cells % 0.3 %; Platelet Count 218 10^3/cmm (157-399); Red Blood Count 3.59 10^6/uL (3.85-5.65); White Blood Count 6.89 10^3/uL (3.29-11.43)
[2024-11-26 06:37] LABS: Alanine Aminotransferase 43 U/L (0-41); Albumin Level 3.3 g/dL (3.5-5.2); Alkaline Phosphatase 163 U/L (40-130); Anion Gap 18.3 (5-19); Aspartate Amino Transferase 61 U/L (0-40); Blood Urea Nitrogen 13 mg/dL (8-23); Calcium 8.6 mg/dL (8.5-10.5); Carbon Dioxide 23 mmol/L (22-29); Chloride 98 mmol/L (98-107); Creatinine Clr Calc Pharmacy 42.9391; Globulin 2.7 g/dL (1.3-4.6); Glucose 108 mg/dL (65-115); Magnesium 1.7 mg/dL (1.7-2.3); Osmolality Calculated 283 mOsm/kg (285-295); Potassium 3.3 mmol/L (3.5-5.1); Sodium 136 mmol/L (136-145); Total Protein 6.0 g/dL (6.6-8.7)
--- NOTE | 2024-11-26 08:09 | PC.SOCIAL ---
IMM Update Pg. 2 of IMM Updated and reviewed with patient, who verbalized understanding. Copy provided at bedside.
[2024-11-26] MEDS: polymyxin-trimethoprim Op Soln 10 mL Btl 1 DROP EYE-LEFT ×4 (09:12→20:02)
[2024-11-26] MEDS: heparin 5,000 unit/mL INJ 1 mL 5000 UNIT SUBCUT ×2 (13:25→23:46)
--- NOTE | 2024-11-26 20:40 | P.PN_ITS ---
Subjective 2 Subjective: He denies chest pain or pressure. Overall doing okay, although blood pressure has been fluctuating. Vitals/I&O/Wt Last Vital Signs Temp 97.4 F L 11/26/24 19:43 Pulse 77 11/26/24 19:54 Resp 18 11/26/24 19:47 BP 98/57 11/26/24 19:43 Pulse Ox 90 11/26/24 19:47 O2 Del Method Room Air 11/26/24 19:47 11/26/24 11/26/24 11/26/24 06:59 14:59 22:59 Intake Total 120 / 1655 720 / 720 180 / 900 Output Total 600 / 1375 200 / 200 Balance -480 / 280 720 / 720 -20 / 700 Weight last 48 hrs Weight 80.513 kg Weight 80.513 kg Weight 136.078 kg Physical Exam 2 Narrative: Accompanied by visitors. Const: COMMON NORMALS: patient oriented x3 and alert GENERAL APPEARANCE: c ooperative ORIENTATION/CONSCIOUSNESS: Yes awake HENMT: COMMON NORMALS: oropharynx normal Neck/C-Spine: COMMON NORMALS: no JVD Resp: COMMON NORMALS: normal respiratory effort and clear to auscultation bilaterally AUSCULTATION: clear to auscultation bilaterally Cardio: COMMON NORMALS: no JVD, regular rhythm, S1 normal heart sound present, S2 normal heart sound present and No murmurs present (Cardio) RHYTHM: regular rhythm HEART SOUNDS: S1 normal heart sound present and S2 normal heart sound present GI: COMMON NORMALS: Normal to inspection, nondistended, normoactive bowel sounds present, Soft to palpation and non-tender PALPATION: Yes Soft to palpation Extremity: COMMON NORMALS: no joint enlargement and no pedal edema Neuro: COMMON NORMALS: patient oriented x3 and moves all extremities S ENSORIUM/ORIENTATION: Yes alert Skin: COMMON NORMALS: no rashes or lesions noted GENERAL SKIN EXAM: no rashes or lesions noted Data 11/26/24 05:45 11/26/24 05:45 A&P Assessment and plan (1) Generalized weakness: (2) Hypotension: (3) Subclinical hypothyroidism: (4) Chronic systolic CHF (congestive heart failure): (5) Cardiomyopathy: (6) S/P right coronary artery (RCA) stent placement: (7) Paroxysmal atrial fibrillation: (8) Adult failure to thrive: (9) Elevated LFTs: (10) BPH loc w urin obs/LUTS: (11) COPD (chronic obstructive pulmonary disease): (12) Moderate aortic stenosis: Plan 84-year-old gentleman with history of CAD, post PCI, atrial fibrillation not on anticoagulation, congestive heart failure who lives by himself presents to the ER because of bilateral lower limb weakness along with concerns for failure to thrive and not able to take care of himself. Patient currently does not have any signs and symptoms of infection. Denies any dysuria. Is currently on room air. Denies any cough. Denies any chest pain. Hypotension: Blood pressure with fluctuation again. Today down to 98/57. Continue to hold antihypertensives. Obtain TTE. Reviewed serum cortisol, chemistry, CBC. Obtain cosyntropin stimulation test. Discussed with him consideration of midodrine, risk of supine hypertension. For now we will discontinue Entresto. Continue to monitor on telemetry. Replace magnesium. Recheck magnesium level. Arrangements for skilled rehabilitation underway per discussion with lining caser. Complains of lower limb weakness. No concerns for stroke for now. Denies any focal weakness. Getting CT head as above anyways. Failure to thrive most likely in setting of advanced age. Generalized weakness could be in setting of hypotension. Systolic blood pressure down to 70s after getting morning dose of Entresto. Could be in setting of severe subclinical hypothyroidism or in setting of occasional A-fib with RVR. Subclinical hypothyroidism: TSH of 15. Normal free T3 and free T4. Started on levothyroxine 50 mcg daily. Patient should have a repeat thyroid panel in 4 weeks. A-fib with RVR: Heart rate is better controlled, continue amiodarone to 200 mg twice daily. Consider anticoagulation, but currently risk of fall and bleeding. Will need to revisit once may be a bit safer to start or consider ENDY closure. History of CAD: Denies any active chest pain. Hold off on home dose of statin, baby aspirin History of congestive heart failure: Currently euvolemic. Holding Entresto as above. Hold off on Lasix for now. Fluid restriction to less than 1500 cc. Echocardiogram showing moderate aortic stenosis, grade 2 diastolic dysfunction along with 40% EF back in 2023. Transaminitis: Reviewed CMP. Improving. Possibly from hypotension. Full code Cardiac diet. Fluid restriction. Protonix for PUD prophylaxis Heparin 5000 Q12 hourly for DVT prophylaxis PDMP PDMP Reviewed: Not Reviewed Attestations 2 Medical Necessity Statement*: Continue admission for assessment and management of intermittent symptomatic hypotension, assessment for possible adrenal insufficiency. With functional decline. Post discharge planning and arrangements. and High MDM includes amount and/or complexity of data reviewed/ordered [ resulted lab(s)/test(s), ordered lab(s)/test(s) and other healthcare professional discussion] as documented Diagnoses Generalized weakness R53.1 Hypotension I95.9 Subclinical hypothyroidism E03.8 Chronic systolic CHF (congestive heart failure) I50.22 Ischemic cardiomyopathy I25.5 Cardiomyopathy type: ischemic S/P right coronary artery (RCA) stent placement Z95.5 Paroxysmal atrial fibrillation I48.0 Adult failure to thrive R62.7 Elevated LFTs R79.89 BPH loc w urin obs/LUTS N40.1 COPD (chronic obstructive pulmonary disease) J44.9 Moderate aortic stenosis I35.0
[2024-11-26 21:57] LABS: Cosyntropin Baseline 9.71 mcg/dL
[2024-11-26] MEDS: magnesium sulfate premix 2 GM/50 ML PIGGYBACK IV (22:11)
[2024-11-26] MEDS: cosyntropin 0.25 mg SDV IVP (22:16)
[2024-11-26 23:24] LABS: Cosyntropin 30 Minute 21.34 mcg/dL
[2024-11-27] VITALS (7 sets, daily range): BP systolic 96–140; BP diastolic 61–71; PULSE 59–84; RESP 16–19; TEMP 36.4–36.6; O2SAT 93–96
--- NOTE | 2024-11-27 | FL_ITS ---
NOTE: Report did not cross. Original Signature date and time was: 11/27/24 @ 1728 FL barium swallow modifd [id number] REASON FOR EXAM: Oropharyngeal dysphagia FLUOROSCOPY TIME: 6min [id number] # OF SPOT FILMS: None TECHNIQUE: Examination was supervised by the speech therapy department. The patient was examined in the sitting upright lateral projection. The swallowing of multiple consistencies of barium was monitored fluoroscopically and video recorded. FINDINGS: The patient had difficulty moving oral intake from the oropharynx to the hypopharynx and from the hypopharynx into the cervical esophagus. There was significant penetration into the laryngeal vestibule and possibly trace aspiration. This was observed with thin liquids and soft solids. Patient had difficulty moving the barium tablet from the oropharynx into the cervical esophagus. Once within the cervical esophagus there was no impingement of the transit of the barium tablet through the esophagus. IMPRESSION: A detailed report of the swallowing will be rendered by the speech therapy department. Laryngeal vestibule penetration as above. MTDD
[2024-11-27 00:13] LABS: Cosyntropin 1 Hour 24.40 mcg/dL
[2024-11-27 05:40] LABS: Hematocrit 32.6 % (37-53); Hemoglobin 10.30 g/dL (11.27-16.99); Mean Corpuscular HGB Conc 31.6 g/dL (30-55); Mean Corpuscular Hemoglobin 28.7 pg (27-33); Mean Corpuscular Volume 90.8 fl (82-101); Nucleated Red Blood Cells % 0 %; Platelet Count 237 10^3/cmm (157-399); Red Blood Count 3.59 10^6/uL (3.85-5.65); White Blood Count 11.35 10^3/uL (3.29-11.43)
[2024-11-27 05:59] LABS: Alanine Aminotransferase 40 U/L (0-41); Albumin Level 3.2 g/dL (3.5-5.2); Alkaline Phosphatase 166 U/L (40-130); Anion Gap 17.4 (5-19); Aspartate Amino Transferase 54 U/L (0-40); Blood Urea Nitrogen 13 mg/dL (8-23); Calcium 8.6 mg/dL (8.5-10.5); Carbon Dioxide 24 mmol/L (22-29); Chloride 96 mmol/L (98-107); Creatinine Clr Calc Pharmacy 48.5731; Globulin 3.0 g/dL (1.3-4.6); Glucose 125 mg/dL (65-115); Magnesium 2.4 mg/dL (1.7-2.3); Osmolality Calculated 278 mOsm/kg (285-295); Potassium 4.4 mmol/L (3.5-5.1); Sodium 133 mmol/L (136-145); Total Protein 6.2 g/dL (6.6-8.7)
[2024-11-27] MEDS: polymyxin-trimethoprim Op Soln 10 mL Btl 1 DROP EYE-LEFT ×2 (09:29→14:20)
--- NOTE | 2024-11-27 12:03 | P.DS_ITS ---
Discharge Providers Date of Admission: 11/25/24 13:20 Date of Discharge: November 27, 2024 Attending Provider at Admission: Alexander Patton MD Attending Provider at Discharge: Olman Montes Primary Care Provider: [place] Park APRN Diagnoses at Discharge Discharge Diagnosis (1) Generalized weakness: Status: Acute (2) Hypotension: Status: Acute (3) Subclinical hypothyroidism: Status: Acute (4) Chronic systolic CHF (congestive heart failure): Status: Acute Permanent problem details: Systolic and diastolic with last known EF 45% in 2023 (5) Cardiomyopathy: Status: Acute Qualifiers: Cardiomyopathy type: ischemic Qualified Code(s): I25.5 - Ischemic cardiomyopathy (6) S/P right coronary artery (RCA) stent placement: Status: Acute (7) Paroxysmal atrial fibrillation: Status: Acute (8) Adult failure to thrive: Status: Acute (9) Elevated LFTs: Status: Acute (10) BPH loc w urin obs/LUTS: Status: Acute Permanent problem details: Chronic decreased force of stream without RUTIs gross hematuria (previously prior to catheterization placement) or retention. (11) COPD (chronic obstructive pulmonary disease): Status: Chronic (12) Moderate aortic stenosis: Status: Acute Reason for Visit Reason for Visit: weakness Brief History: Reginald Pelaez is a 84 year old male with past medical history of CAD, post PCI to RCA, atrial fibrillation, systolic and diastolic heart failure with last known EF of 40% back in 2023, moderate aortic valve stenosis, not on anticoagulation for atrial fibrillation was brought to the ER today via EMS as he was not able to get out of chair. Patient complains of bilateral lower limb weakness which has been getting worse over the last couple of weeks to a month. Patient lives by himself. Patient denies any nausea, vomiting, headache, dizziness, changes in medication, chest pain, difficulty in breathing, abdominal pain, weakness more in 1 limb than another, slurred speech, history of stroke. Does give history of occasional fall. Denies any fall in last 1 week. Is able to walk around with a walker. Hospital Course Hospital Course He was admitted and further assessed with regards to weakness, CK was checked and was normal. He was found to have hypotension episodes with blood pressure dropping down as low as 70/42. Serum cortisol was checked and was normal. Cosyntropin stimulation test showed adequate response. His antihypertensives were held and blood pressures did improve. He was trialed on resumption of Entresto, but blood pressure getting soft to 96/61, 93/58, Entresto will not be continued at the moment. Please continue to monitor blood pressures. Echocardiogram was obtained which showed low normal EF 50-55%, mild MVR, in cidentally noted dilation of ascending aorta to 3.83 cm please follow-up. On assessment by physical therapy he is found in need of rehabilitation which is arranged. During hospitalization he also reports having always had difficulty swallowing pills, but he is noted to have some dysphagia with other items as well. Speech therapy evaluation was requested and as per recommendation modified barium swallow was ordered. Please continue dysphagia precautions, diet per speech therapy recommendation. From discussion with speech therapy, during modified barium swallow with noted penetration frequently to vocal folds and material not cleared from laryngeal vestibule on most swallows. In addition with significant pharyngeal residue after swallows are completed residue after swallows are completed both with food items as well as liquids. Weird with swallows and the amount of material in the pharynx and also leads to penetration. Despite all the penetration he did not show frequent or extensive aspiration. 1 likely episode of trace aspiration noted. He did best with pudding and moderately thick liquids. But penetration and residue still evident. Per speech therapy recommendations after modified barium swallow, please continue moderately thick liquids, continue double swallows, supraglottic swallows, and continue speech therapy follow-up at custodial facility continue to help reduce chance of penetration and/or aspiration. Held his statin for now. At current time given blood pressures showing improvement, statin could be resumed in a couple weeks, but in case of persist ent weakness or other symptoms concerning for myopathy consider discontinuation. During hospitalization had a brief episode of atrial fibrillation for which she was continued on amiodarone. He is not on anticoagulation, not started at the current time due to risk of fall and bleeding. Please reassess and once safe for consider starting anticoagulation versus consideration of other options possibly ENDY closure. Started on low dose aspirin for now. At risk of microaspiration Physical Exam Const: COMMON NORMALS: patient oriented x3 and alert GENERAL APPEARANCE: cooperative ORIENTATION/CONSCIOUSNESS: Yes awake HENMT: COMMON NORMALS: oropharynx normal Neck/C-Spine: COMMON NORMALS: no JVD Resp: COMMON NORMALS: normal respiratory effort and clear to auscultation bilaterally AUSCULTATION: clear to auscultation bilaterally Cardio: COMMON NORMALS: no JVD, regular rhythm, S1 normal heart sound present, S2 normal heart sound present and No murmurs present (Cardio) RHYTHM: regular rhythm HEART SOUNDS: S1 normal heart sound present and S2 normal heart sound present GI: COMMON NORMALS: Normal to inspection, nondistended, normoactive bowel sounds present, Soft to palpation and non-tender PALPATION: Yes Soft to palpation Extremity: COMMON NORMALS: no joint enlargement and no pedal edema Neuro: COMMON NORMALS: patient oriented x3 and moves all extremities SENSORIUM/ORIENTATION: Yes alert Skin: COMMON NORMALS: no rashes or lesions noted GENERAL SKIN EXAM: no rashes or lesions noted Discharge Data Studies Completed and Pending Completed Studies During Hospitalization Category Date Time Status CT head wo con* [id number] Routine Cat Scan 11/24/24 16:57 Completed XR chest 1V portable [id number] Stat Exams 11/24/24 08:58 Completed CV. echo complete* [id number] Routine Ultrasound 11/27/24 20:40 Completed US gall bladder [id number] Stat Ultrasound 11/24/24 09:59 Completed Pending at discharge Category Date Time Status Modified barium swallow [FL barium swallow modifd [id number] Exams 11/27/24 11:55 Ordered ] Routine Radiology Impressions Chest X-Ray 11/24/24 08:58 IMPRESSION: Probable mild chronic fibrosis in the lung bases. Otherwise, no obvious acute cardiopulmonary abnormality detected on AP portable chest radiograph.. Gallbladder Ultrasound 11/24/24 09:59 IMPRESSION: 1. Cholelithiasis without sonographic features of acute cholecystitis or biliary duct obstruction. 2. Hepatic steatosis. Head CT 11/24/24 16:57 IMPRESSION: No acute intracranial abnormality. Laboratory Results WBC 11.35 10^3/uL (3.29-11.43) 11/27/24 05:22 RBC 3.59 10^6/uL (3.85-5.65) L 11/27/24 05:22 Hgb 10.30 g/dL (11.27-16.99) L 11/27/24 05:22 Hct 32.6 % (37-53) L 11/27/24 05:22 MCV 90.8 fl (82-101) 11/27/24 05:22 MCH 28.7 pg (27-33) 11/27/24 05:22 MCHC 31.6 g/dL (30-55) 11/27/24 05:22 RDW 22.9 % (12.1-15.1) H 11/27/24 05:22 Plt Count 237 10^3/cmm (157-399) 11/27/24 05:22 MPV 10.0 fL (7.4-10.4) 11/27/24 05:22 Neut % (Auto) 82.9 % 11/27/24 05:22 Lymph % (Auto) 8.5 % 11/27/24 05:22 Long % (Auto) 7.6 % 11/27/24 05:22 Eos % (Auto) 0.1 % 11/27/24 05:22 Baso % (Auto) 0.3 % 11/27/24 05:22 Neut # (Auto) 9.41 10^3/uL (1.8-7.7) H 11/27/24 05:22 Lymph # (Auto) 1.0 10^3/uL (0.8-4.8) 11/27/24 05:22 Long # (Auto) 0.9 10^3/uL (0.2-0.9) 11/27/24 05:22 Eos # (Auto) 0.0 10^3/uL (0.0-0.8) 11/27/24 05:22 Baso # (Auto) 0.0 10^3/uL (0.0-0.1) 11/27/24 05:22 Nucleated RBC % (auto) 0 % 11/27/24 05:22 Nucleated RBCs # 0.0 /100WBC 11/27/24 05:22 Sodium 133 mmol/L (136-145) L 11/27/24 05:22 Potassium 4.4 mmol/L (3.5-5.1) 11/27/24 05:22 Chloride 96 mmol/L (98-107) L 11/27/24 05:22 Carbon Dioxide 24 mmol/L (22-29) 11/27/24 05:22 Anion Gap 17.4 (5-19) 11/27/24 05:22 BUN 13 mg/dL (8-23) 11/27/24 05:22 Creatinine 1.2 mg/dL (0.7-1.2) 11/27/24 05:22 GFR Calculation Not Reportable 11/27/24 05:22 Glucose 125 mg/dL (65-115) H 11/27/24 05:22 Calculated Osmolality 278 mOsm/kg (285-295) L 11/27/24 05:22 Calcium 8.6 mg/dL (8.5-10.5) 11/27/24 05:22 Phosphorus 3.2 mg/dL (2.5-4.5) 11/27/24 05:22 Magnesium 2.4 mg/dL (1.7-2.3) H 11/27/24 05:22 Total Bilirubin 1.1 mg/dL (0.15-1.2) 11/27/24 05:22 GGT 526 U/L (8-61) H 11/24/24 08:40 AST 54 U/L (0-40) H 11/27/24 05:22 ALT 40 U/L (0-41) 11/27/24 05:22 Alkaline Phosphatase 166 U/L (40-130) H 11/27/24 05:22 Lactate Dehydrogenase 358 U/L (135-225) H 11/24/24 08:40 Creatine Kinase 75 U/L (39-308) 11/24/24 08:40 NT-Pro-B Natriuret Pep 711 pg/mL (0-450) H 11/24/24 08:40 Total Protein 6.2 g/dL (6.6-8.7) L 11/27/24 05:22 Albumin 3.2 g/dL (3.5-5.2) L 11/27/24 05:22 Globulin 3.0 g/dL (1.3-4.6) 11/27/24 05:22 Procalcitonin 0.25 ng/mL (0-0.5) 11/25/24 03:32 TSH 15.31 uIU/mL (0.27-4.20) H 11/24/24 08:40 Free T4 1.33 ng/dL (0.82-1.77) 11/24/24 08:40 Free T3 2.7 PG/ML (2.0-4.4) 11/24/24 08:40 Random Cortisol 9.91 ug/dL (2.47-19.5) 11/25/24 03:32 Cortisol Response 11/26/24 21:09 Urine Color Yellow (Yellow) 11/24/24 10:40 Urine Appearance Clear (CLEAR) 11/24/24 10:40 Urine pH 7.0 (5-7) 11/24/24 10:40 Ur Specific [place] 1.010 (1.005-1.030) 11/24/24 10:40 Urine Protein Negative (Negative) 11/24/24 10:40 Urine Glucose (UA) Negative (Normal) 11/24/24 10:40 Urine Ketones Negative (Negative) 11/24/24 10:40 Urine Blood Negative (Negative) 11/24/24 10:40 Urine Nitrate Negative (Negative) 11/24/24 10:40 Urine Bilirubin Negative (Negative) 11/24/24 10:40 Urine Urobilinogen 1.0 mg/dL (Negative) 11/24/24 10:40 Ur Leukocyte Esterase Negative (Negative) 11/24/24 10:40 Urine RBC 0-2 /hpf (0-2) 11/24/24 10:40 Urine WBC 0-5 /hpf (0-5) 11/24/24 10:40 Ur Squamous Epith Cells 0-5 /hpf (0-5) 11/24/24 10:40 Amorphous Sediment Not Reportable 11/24/24 10:40 Urine Bacteria None seen /hpf (NONE) 11/24/24 10:40 Hyaline Casts 15.71 /lpf 11/24/24 10:40 Adenovirus (PCR) Not detected (NOT DETECT) 11/24/24 17:38 C. pneumoniae DNA (PCR) Not detected (NOT DETECT) 11/24/24 17:38 Coronavirus 229E (PCR) Not detected (NOT DETECT) 11/24/24 17:38 Human Metapneumovir PCR Not detected (NOT DETECT) 11/24/24 17:38 Influenza A (H1) PCR Not detected (NOT DETECT) 11/24/24 17:38 Influ A (H1/09) PCR Not detected (NOT DETECT) 11/24/24 17:38 Influenza A (H3) PCR Not detected (NOT DETECT) 11/24/24 17:38 Influenza Type A (PCR) Not detected (NOT DETECT) 11/24/24 17:38 Influenza Type B (PCR) Not detected (NOT DETECT) 11/24/24 17:38 M. pneumoniae (PCR) Not detected (NOT DETECT) 11/24/24 17:38 Parainfluenza 1 (PCR) Not detected (NOT DETECT) 11/24/24 17:38 Parainfluenza 2 (PCR) Not detected (NOT DETECT) 11/24/24 17:38 Parainfluenza 3 (PCR) Not detected (NOT DETECT) 11/24/24 17:38 Parainfluenza 4 (PCR) Not detected (NOT DETECT) 11/24/24 17:38 RSV Type A (PCR) Not detected (NOT DETECT) 11/24/24 17:38 RSV Type B (PCR) Not detected (NOT DETECT) 11/24/24 17:38 Entero/Rhino (PCR) Not detected (NOT DETECT) 11/24/24 17:38 SARS-CoV-2 (PCR) Not detected (NOT DETECT) 11/24/24 17:38 Vitals Last Vital Signs Temp 97.8 F 11/27/24 08:03 Pulse 78 11/27/24 09:14 Resp 18 11/27/24 09:14 BP 140/71 11/27/24 08:03 Pulse Ox 96 11/27/24 09:14 O2 Del Method Nasal Cannula 11/27/24 09:14 O2 Flow Rate 2 11/27/24 09:14 Discharge Plan Discharge Patient Disposition: Xfer SNF Condition: Stable Prescriptions: New aspirin 81 mg capsule 81 mg PO DAILY Qty: 90 0RF Continued (DME) L3221 orthopedic shoes See Rx Instructions .Route .MEDSUPPLY Qty: 1 0RF Rx Instructions: As directed to the shoe rene furosemide 40 mg tablet 40 mg PO DAILY potassium chloride 20 mEq tablet extended release See Rx Instructions .ROUTE .COMPLEX Qty: 180 2RF Dose Instruction: TAKE 1 TABLET BY MOUTH TWICE DAILY; HOLD IF YOU DO NOT TAKE LASIX Rx Instructions: TAKE 1 TABLET BY MOUTH TWICE DAILY; HOLD IF YOU DO NOT TAKE LASIX acetaminophen [Tylenol] 325 mg Tablet 650 mg PO Q6H PRN (Reason: Pain/fever) amiodarone [Pacerone] 200 mg Tablet 200 mg PO DAILY Qty: 30 0RF tamsulosin 0.4 mg Capsule 0.4 mg PO QPM Qty: 30 0RF albuterol sulfate 90 mcg/actuation HFA aerosol inhaler 2 inh INHALATION Q6H PRN (Reason: shortness of breath or wheezing) Qty: 8 0RF albuterol sulfate 2.5 mg /3 mL (0.083 %) solution for nebulization 2.5 mg inhalation Q6H PRN (Reason: Shortness Of Breath Or Wheezing) polymyxin B sulf-trimethoprim 10,000 unit- 1 mg/mL drops 1 drp ophthalmic (eye) QID montelukast 10 mg Tablet 10 mg PO BEDTIME folic acid 1 mg Tablet 1 mg PO DAILY magnesium oxide 400 mg (241.3 mg magnesium) tablet 400 mg PO DAILY meclizine 25 mg tablet 12.5 mg PO TID PRN (Reason: dizziness) Qty: 30 0RF Held atorvastatin 80 mg tablet 40 mg PO QPM Hold Instructions: Resume on 12/11/24. Discontinued Entresto 24-26 mg tablet 1 tab PO BID Discharge Orders: Discharge Order (Routine); Ordered 11/27/24 Ordered By: Olman Montes Referrals: [facility] [Outside] [place] APRN [Primary Care Provider, [facility]] - 4-7 days Discharge Diet: As Directed Patient Instructions: Hypothyroidism (DC), COPD (Chronic Obstructive Pulmonary Disease) (DC), Weakness (DC), Transaminitis (GEN), COPD Stoplight, Opioid Safety, Patient Portal & Brandy Instructions Activity Restrictions/Additional Instructions: Maintain orthostatic precautions, sit down or lie down immediately in case of f eeling lightheaded. Do not try to fight through with you do not fall down and injure yourself. Measure blood pressure 3 times daily, save values to bring to her appointment. Do not restart your antihypertensive as discussed due to fluctuation in blood pressure. Your cortisol response was adequate. Echocardiogram showed low normal ejection fraction, mild mitral regurgitation. Incidentally seen mild dilation of ascending aorta to 3.83 cm, please follow-up with primary provider for monitoring. Please maintain aspiration precautions and diet as instructed by speech therapy. Continue follow-up with regards to congestive heart failure, maintain fluid restriction of less than 1500 mL in a day. Follow-up regarding atrial fibrillation. Follow-up also regarding abnormality of TSH with noted TSH elevated but normal thyroid enzymes.-Primary doctor recheck your thyroid function. Seek medical attention in case of any worsening or new concerning symptoms. Per speech therapy recommendations after modified barium swallow, please continue moderately thick liquids, continue double swallows, supraglottic swallows, and continue speech therapy follow-up at custodial facility continue to help reduce chance of penetration and/or aspiration. Discharge Attestations Time Spent in Discharge Care*: greater than 30 min Status at Discharge: Cognitive status at discharge: cognitively intact , Behavioral status at discharge: cooperative , Quality Metrics Clinical Quality Measures [ No reported AMI, CVA or VTE this stay] Coding Level of Care Code 28032 Total time (in minutes) for Discharge: 55 Diagnoses Generalized weakness R53.1 Hypotension I95.9 Subclinical hypothyroidism E03.8 Chronic systolic CHF (congestive heart failure) I50.22 Ischemic cardiomyopathy I25.5 Cardiomyopathy type: ischemic S/P right coronary artery (RCA) stent placement Z95.5 Paroxysmal atrial fibrillation I48.0 Adult failure to thrive R62.7 Elevated LFTs R79.89 BPH loc w urin obs/LUTS N40.1 COPD (chronic obstructive pulmonary disease) J44.9 Moderate aortic stenosis I35.0
[2024-11-27 14:05] LABS: SARS Covid-2 Antigen Negative (Negative)
[2024-11-27] MEDS: heparin 5,000 unit/mL INJ 1 mL 5000 UNIT SUBCUT (14:18)
--- NOTE | 2024-11-27 20:40 | USCV_ITS ---
Reginald Pelaez Age: 84 Gender: M : 1940 Exam Date: 11/26/2024 23:05 Ordering Phys: Olman Montes MD Technologist: Exam [place] [facility] [place] Indication: ao pros BP: 98 / 57 HR: 84 Rhythm: Sinus Technical Quality: Adequate MEASUREMENTS (Male / Female) Normal Values 2D ECHO LV Diastolic Diameter PLAX 5.6 cm 4.2 - 5.9 / 3.9 - 5.3 cm IVS Diastolic Thickness 1.3 cm 0.6 - 1.0 / 0.6 - 0.9 cm IVS Systolic Thickness 1.5 cm LVPW Diastolic Thickness 1.0 cm 0.6 - 1.0 / 0.6 - 0.9 cm LVPW Systolic Thickness 1.8 cm LVOT Diameter 2.2 cm LV Ejection Fraction 2D Teich 64.2 % LV Ejection Fraction MOD 4C 56.4 % LV Ejection Fraction MOD 2C 56.1 % LV Ejection Fraction 2C AL 55.5 % LA Diameter 3.4 cm RA Systolic Volume 4C AL 41.8 ml RA Systolic Volume 4C MOD 36.8 ml LA Sys Volume AL 64.7 cm cubed LA Sys Volume Index AL 34.4 cm cubed/m squared Aorta at Sinotubular Diameter 3.2 cm IVC Diameter 2.6 cm M-MODE LA Ao Ratio MM 1.2 AV Cusp Separation MM 2.6 cm DOPPLER AV Peak Velocity 163.0 cm/s LVOT Peak Velocity 90.0 cm/s AV Area Cont Eq vti 2.3 cm squared AV Area Cont Eq pk 2.1 cm squared MV Peak Velocity 58.0 cm/s MV Area PHT 4.6 cm squared Mitral E to A Ratio 1.0 TV Peak Velocity 168.0 cm/s TR Peak Velocity 170.0 cm/s TR Peak Gradient 11.6 mmHg TV Peak E Velocity 55.0 cm/s PV Peak Velocity 98.0 cm/s FINDINGS Left Ventricle Left ventricle is normal in size. LV systolic function is normal with EF of 50-55%. No regional wall abnormalities are seen. Right Ventricle Normal in size and function Right Atrium Normal in size Left Atrium Normal in size Mitral Valve Mild mitral annular calcification. Mild mitral regurgitation. Aortic Valve Aortic valve is thickened. No significant stensis or regurgitation. Tricuspid Valve Insufficient TR jet to evaluate RVSP. Pulmonic Valve Not well visualized Pericardium Normal Aorta Ascending aorta is dilated with diameter of 3.83cm IVC Not well visualized CONCLUSIONS LV systolic function is normal with EF of 50-55% Mild mitral regurgitation. Ascending aorta is dilated with diameter of 3.83cm Compared to prior echocardiogram from 2023, LV systolic function has improved. Rober Marx MD (Electronically Signed) Final Date: 27 November 2024 09:12 S
== END 2024-11-27 16:10 | disposition skilled nursing facility (03) | DRG 314 ==
LOC: ER 10:22 → MEDSURG 11:44
PROVIDERS: Admitting Provider Student in an Organized Health Care Education/Training Program; Emergency Provider Emergency Medicine; PCP Nurse Practitioner Family; Visit Provider Internal Medicine
DX: I95.9 Hypotension, unspecified (principal); I50.23 Acute on chronic systolic (congestive) heart failure; E03.8 Other specified hypothyroidism; I11.0 Hypertensive heart disease with heart failure; I25.5 Ischemic cardiomyopathy; I25.10 Atherosclerotic heart disease of native coronary artery without angina pectoris; I48.0 Paroxysmal atrial fibrillation; R79.89 Other specified abnormal findings of blood chemistry; N40.1 Benign prostatic hyperplasia with lower urinary tract symptoms; J44.9 Chronic obstructive pulmonary disease, unspecified; I35.0 Nonrheumatic aortic (valve) stenosis; R62.7 Adult failure to thrive; R13.10 Dysphagia, unspecified; I73.9 Peripheral vascular disease, unspecified; F17.220 Nicotine dependence, chewing tobacco, uncomplicated; K21.9 Gastro-esophageal reflux disease without esophagitis; Z68.24 Body mass index [BMI] 24.0-24.9, adult; Z91.81 History of falling; Z85.21 Personal history of malignant neoplasm of larynx; Z85.828 Personal history of other malignant neoplasm of skin; Z95.5 Presence of coronary angioplasty implant and graft; Z89.422 Acquired absence of other left toe(s)
CPT/HCPCS: 36415; 70450; 71045; 74230; 76705; 80053; 81001; 82533; 82550; 82977; 83615; 83735; 83880; 84100; 84145; 84439; 84443; 84481; 85025; 87426; 87486; 87581; 87633; 92523; 92610; 92611; 93005; 93306; 94640; 94664; 96372; 96374; 97161; 97165; 97530; 97535; 99285; A4222; G0378; J0283; J0834; J1644; J1938; J3475; J7040; J7614; J7644; J9999; P9047

== ENCOUNTER 2025-01-03 13:13 | Inpatient (IN) | payer OTHER, MEDICARE, MEDICAID, SELFPAY ==
--- OUTSIDE RECORDS SUMMARY | 2024-01-26 07:00 | XMS_ITS ---
Author Name [facility] [place] [facility] [place] Address [address] [place] [id number] Care Team Providers Care Digital Media Producer Name Role Phone RICKEY PARK Primary Care Provider Unavailabl e Insurance Providers: All historical and current Section Date Range: From patient's date of to the date document was created. This section includes the names of all active insurance providers for the patient. Insurance Provider Type of Coverage Plan Name Start of Policy Coverage End of Policy Coverage Group Number Member ID Insurance Provider's Telephone Number Policy Harrison's Name Patient's Relationship to Policy Harrison [facility] (WNR) MEDICARE ADVANTAGE [facility] (WNR) Oct 28, 2022 [facility] [id number] [phone] Kaye RICHEY PATIENT MEDICARE (WNR) MEDICARE (M) PART A Apr 29, 2007 PART A [id number] Kaye RICHEY PATIENT MEDICARE (WNR) MEDICARE (M) PART B Apr 29, 2007 PART B [id number] Kaye RICHEY PATIENT Selected Encounter This section includes the information on record at [place] for the Encounter. Date/Time Encounter Type Encounter Description Reason Provider Source Jan 26, 2024 12:00 PM OFF/OP EST SEPTEMBER X REQ PHY/QHP PRIMARY CARE/MEDICINE ICD-10-CM R52 Pain, unspecified DONNY BOB Encounter Template Text not used by [facility] Assessments - Encounter Diagnoses This section includes the primary and secondary diagnoses documented for the Encounter. Date/Time Primary/Secondary Diagnosis Diagnosis Name Provider Source Jan 26, 2024 01:47 PM PRIMARY Pain, unspecified DONNY BOB [facility] Plan of Treatment: Future Appointments (+ 6 months) and Future Tests (+/- 45 days) The Plan of Treatment section includes future care activities for the [facility] [place] [facility] This section includes future appointments and future orders which are active, pending or scheduled. Future Appointments This section includes appointments that were scheduled to occur 6 months from the date of the Encounter, up to a maximum of 20 appointments. The data comes from all [place] treatment facilities. Appointment Date/Time Appointment Type Appointme nt Facility Name Feb 02, 2024 10:00 AM AMBULATORY - [place]ICINE [place] [facility] [place] Feb 02, 2024 11:00 AM AMBULATORY - MEDICINE [facility] Feb 02, 2024 11:30 AM AMBULATORY - MEDICINE [facility] Feb 07, 2024 02:45 PM AMBULATORY - MEDICINE [place] [facility] [place] Feb 09, 2024 02:00 PM AMBULATORY - MEDICINE [facility] Feb 16, 2024 01:20 PM AMBULATORY - MEDICINE [facility] Feb 16, 2024 02:00 PM AMBULATORY - MEDICINE [facility] Feb 21, 2024 02:30 PM AMBULATORY - MEDICINE [place] [facility] [place] Feb 23, 2024 01:00 PM AMBULATORY - MEDICINE [facility] Feb 24, 2024 08:00 AM AMBULATORY - MEDICINE [place] [facility] [place] Mar 06, 2024 07:15 AM AMBULATORY - MEDICINE [place] [facility] [place] Mar 14, 2024 02:00 PM AMBULATORY - MEDICINE [facility] Mar 22, 2024 11:30 AM AMBULATORY - MEDICINE [facility] Mar 22, 2024 01:30 PM AMBULATORY - MEDICINE [facility] Mar 22, 2024 03:00 PM AMBULATORY - MEDICINE [facility] Apr 16, 2024 08:45 AM AMBULATORY - MEDICINE [place] [facility] [place] May 10, 2024 02:00 PM AMBULATORY - MEDICINE [facility] May 17, 2024 07:45 AM AMBULATORY - MEDICINE [place] [facility] [place] May 31, 2024 09:40 AM AMBULATORY - SURGERY [place] [facility] [place] Jun 04, 2024 10:00 AM AMBULATORY - MEDICINE [place] [facility] [place] Lab Results: +/- 30 days of the encounter This section includes the Chemistry and Hematology Lab Results on record with [place] for the patient. Radiology Reports and Pathology Reports are provided separately, in subsequent sections. Lab Results This section contains the Chemistry/Hematology Results that were resulted 30 days before or 30 daysafter the date of the Encounter. Date/Time Source Result Type Result - Unit Interpretation Reference Range Specimen Type Comment Feb 16, 2024 01:22 PM [facility] VITAMIN B1 PLASMA Specimen Type: PLASMA Comment: Vitamin supplementation within 24 hours prior to blood draw may affect the accuracy of the results. This test was developed and its analytical performance characteristics have been determined by [employer] [place], [place]. It has not been cleared or approved by the U.S. Food and Drug Administration. This assay has been validated pursuant to the CLIA regulations and is used for clinical purposes. Test Performed by [facility], [facility], [address] [place] [address] Shan Knott M.D., Ph.D., Director of Laboratories , CLIA [id number] Ordering Provider: RICKEY PARK Report Released Date/Time: Feb 09, 2024 06:57 AM Reporting Lab: [place] [facility] [place] [address] [facility] [place] [address] Performing Lab: [place] [facility] [place] [address] [facility] VITAMIN B1 14 nmol/L 8-30 Feb 16, 2024 01:22 PM [facility] CYSTATIN C EGFR PANELS ([facility]-[place]) PLASMA Spec imen Type: PLASMA Comment: Choice of which of the reported eGFR values to use depends on the clinical situation. For example, for patients with severe muscle wasting or reduced muscle mass, eGFR calculated using the 2012 cystatin equation may be preferred. Ordering Provider: RICKEY PARK Report Released Date/Time: Feb 09, 2024 06:57 AM Reporting Lab: [facility] [address] [facility] [address] Performing Lab: [facility] [address] [facility] [address] CYSTATIN C 1.43 mg/L 0.57-1.80 CKD-EPI CYSTATIN C (2012) 44.5 >60 CKD-EPI CREAT-CYSC (2020) 54.0 >60 CREATININE (STL) 1.18 mg/dL 0.7-1.3 Feb 16, 2024 01:22 PM [facility] [place] [facility] B12 SERUM Specimen Type: SERUM No comment entered. Ordering Provider: RICKEY PARK Report Released Date/Time: Feb 09, 2024 06:57 AM Reporting Lab: [place] [facility] [address] [place] [address] Performing Lab: [place] [facility] [address] [place] [address] B12 701 pg/mL 213-816 Feb 16, 2024 01:22 PM [facility] [place] [facility] HEPATITIS C AB (PB) SERUM Specimen Type: SERU M No comment entered. Ordering Provider: RICKEY PARK Report Released Date/Time: Feb 09, 2024 06:57 AM Reporting Lab: [place] [facility] [address] [place] [address] Performing Lab: [place] [facility] [address] [place] [address] HEPATITIS C AB (PB) Nonreactive Nonreact pinky Feb 16, 2024 01:22 PM [facility] [place] [facility] FOLATE (PB) SERUM Specimen Typ e: SERUM No comment entered. Ordering Provider: RICKEY PARK Report Released Date/Time: Feb 09, 2024 06:57 AM Reporting Lab: [place] [facility] [address] [place] [address] Performing Lab: [place] [facility] [address] [place] [address] FOLATE (PB) 17.6 ng/mL 7-20 Feb 16, 2024 01:22 PM [facility] [place] [facility] MAGNESIUM PLASMA Specimen Typ e: PLASMA No comment entered. Ordering Provider: RICKEY PARK Report Released Date/Time: Feb 09, 2024 06:57 AM Reporting Lab: [place] [facility] [address] [place] [address] Performing Lab: [place] [facility] [address] [place] [address] MAGNESIUM 1.81 mg/dL 1.6-2.6 Feb 16, 2024 01:22 PM [facility] VITAMIN D, 25-HYDROXY SERUM Specimen Type: SE RUM No comment entered. Ordering Provider: RICKEY PARK Report Released Date/Time: Feb 09, 2024 06:57 AM Reporting Lab: [place] [facility] [address] [place] [address] Performing Lab: [place] [facility] [address] [place] [address] VITAMIN D, 25-HYDROXY 27.0 ng/mL L 30-96 Feb 16, 2024 01:22 PM [facility] COMPREHENSIVE METABOLIC PANEL PLASMA Specimen Type: PLASMA No comment entered. Ordering Provider: RICKEY PARK Report Released Date/Time: Feb 09, 2024 06:57 AM Reporting Lab: [place] [facility] [address] [place] [address] Performing Lab: [place] [facility] [address] [place] [address] CREATININE 1.26 mg/dL 0.7-1.3 UREA NITROGEN 9 mg/dL 9-25 GLUCOSE 88 mg/dL 72-99 SODIUM 139 meq/L 136-145 POTASSIUM 4.5 meq/L 3.5-5 CHLORIDE 108 meq/L H 98-107 CARBON DIOXIDE 21 meq/L L 22-31 CALCIUM 8.8 mg/dL 8.4-10.4 PROTEIN 6.4 g/dL 6-8.6 ALBUMIN 3.6 g/dL 3.4-5 TOTAL BILIRUBIN 0.5 mg/dL 0.2-1.2 ALKALINE PHOSPHATASE 163 U/L H 40-150 AST/SGOT 20 U/L 5-34 ALT/SGPT 14 U/L 8-40 EGFR (CKD-EPI 2020) 57 Jan 26, 2024 12:39 PM [facility] DRUG SCREEN URINE-inhouse (PB) URINE Specimen Type: URINE No comment entered. Ordering Provider: GORDY LEE Report Released Date/Time: Jan 26, 2024 12:34 PM Reporting Lab: [place] [facility] [address] [place] [address] Performing Lab: [place] [facility] [address] [place] [address] OPIATES (PB) Positive Negative COCAINE... Negative Negative THC(Marijuana... Negative Negative PCP...(Phencyclidine) Negative Negative BENZODIAZEPINE (PB) Negative Negative BARBITURATES (PB) Negative Negative AMPHETAMINE... Negative Negative CREATININE URINE/OTHERS 41.60 mg/dL OXYCODONE ([id number]) Negative Negati ve ETHANOL URINE <10.0 mg/dL L 0-20 Vital Signs: All taken on the encounter date This section contains inpatient and outpatient Vital Signs collected on the date of the Encounter. Date/Time Temperature Pulse Blood Pressure Respiratory Rate SP02 Pain Height Weight Body Mass Index Source Jan 26, 2024 01:48 PM 98 71 111/65 21 97 158.4 23 [facility] Social History: Smoking Status (Most current) and Tobacco Use (All prior to encounter date) This section includes the most current, and the historical, smoking and tobacco- related health factors from the [place] facility where the Encounter took place. Current Smoking Status This section includes the most current smoking, or tobacco-related health factor, from the [place] facility where the Encounter took place. Date/Time Current Smoking Status Comment Facil ity Dec 21, 2021 08:30 AM VA-TOBACCO FORMER USER [facility] Tobacco Use History This section includes a history of the smoking, or tobacco-related health factors, that were collected on or before the date of the Encounter. The data comes from the [place] facility where the Encounter took place. 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 [facility] Dec 22, 2020 08:30 AM VA-TOBACCO USE MED NO [facility] Dec 22, 2020 08:30 AM VA-TOBACCO USER EVERY DAY [facility] Dec 11, 2018 10:05 AM VA-TOBACCO FORMER USER [place] [facility] Dec 11, 2018 10:05 AM VA-TOBACCO QUIT < 1 YEAR [facility] Aug 12, 2017 04:20 PM CURRENT TOBACCO USER [facility] Aug 12, 2017 04:20 PM CURRENT TOBACCO US ER (NOT READY TO QUIT) [place] Aug 12, 2017 04:20 PM SMOKELESS TOBACCO AMOUNT/LENGTH V15 60yr [facility] Aug 12, 2017 04:20 PM TOBACCO CESSATION REFERRAL DECLINED [facility] Aug 12, 2017 04:20 PM TOBACCO MEDS OFFER ED BUT DECLINED [facility] Aug 12, 2017 04:20 PM TOBACCO USER OFFERED MEDS [place] [facility] Mar 20, 2015 08:26 AM CURRENT [place]BACCO USER [facility] Mar 20, 2015 08:[address] [facility] [place] [facility] Jan 14, 2014 11:24 AM CURRENT TOBACCO USER [place] [facility] Jan 14, 2014 11:[address] [facility] [place] [facility] Nov 02, 2012 10:28 AM CURRENT TOBACCO USER [place] Nov 02, 2012 10:[address] [facility] [place] [facility] Mar 20, 2012 01:50 PM TOBACCO MEDS OFFER ED BUT DECLINED [place] [facility] Mar 20, 2012 01:50 PM TOBACCO OFFERED PT MEDS (PROVIDER) [facility] Mar 20, 2012 01:[address] [facility] [place] [facility] Nov 29, 2011 03:13 PM CURRENT TOBACCO USER [place] [facility] Nov 29, 2011 03:13 PM TOBACCO MEDS OFFER ED BUT DECLINED [place] Nov 29, 2011 03:13 PM TOBACCO OFFERED PT MEDS (PROVIDER) [place] Nov 29, 2011 03:[address] [facility] [place] [facility] Sep 25, 2010 08:23 AM CURRENT TOBACCO USER [place] [facility] Sep 25, 2010 08:23 AM LIFETIME NON-USER OF TOBACCO [place] [facility] Sep 25, 2010 08:[address] [facility] [place] [facility] Sep 08, 2009 02:45 PM QUIT TOBACCO >12 M O & <7 YRS AGO [place] [facility] Nov 11, 2008 01:14 PM TOBACCO MEDS OFFER ED BUT DECLINED [facility] Nov 11, 2008 01:[address] [facility] do not want [facility] May 12, 2007 09:17 AM CURRENT TOBACCO USER [facility] May 12, 2007 09:[address] [facility] do not want to quit smoking [facility] Nov 28, 2006 01:36 PM CURRENT TOBACCO USER [facility] Nov 28, 2006 01:36 PM TOBACCO MEDS OFFER ED BUT DECLINED [facility] Jul 28, 2006 08:56 AM [facility] Advance Directives: All historical and current Section Date Range: From patient's date of to the date document was created. This section includes ALL of a patient's completed or amended [place] Advance and Rescinded Directives. The entries below indicate that a directive exists for the patient, but an actual copy is not included with this document. The data comes from all [place] facilities. Date Advance Directives Provider Source Nov 24, 2016 ADVANCE DIRECTIVE SHAYNA SHEN GUADALUPE FF [facility] May 21, 2011 ADVANCE DIRECTIVE DISCUSSION ADAM [facility] 2011 ADVANCE DIRECTIVE DISCUSSION ADAM [facility] May 07, 2011 ADVANCE DIRECTIVE DISCUSSION ADAM [facility] Radiology Reports: +/- 30 days of the encounter Radiology Reports For cases when an order for radiology services may have been completed prior to the date of the Encounter, the report list includes the Radiology Reports that were completed up to 30 days before dateof the Encounter. For cases when an order for radiology services may have been completed after the date of the Encounter, the report list also includes the Radiology Reports that were completed up to30 days after date of the Encounter. The data comes from all [place] treatment facilities. Date/Time Radiology Report Provider Source Feb 24, 2024 02:48 PM MRI SPINE THORACIC W/O CONT: JESSE RICHEY [id number] -1940 M Exm Date: FEB 24, 2024@14:48 Req Phys: GORDY LEE Loc: OUTSIDE PB-MRI (Req'g Loc) Img Loc: OUTSIDE PB-MRI Service: Unknown (Case [id number] COMPLETE) MRI SPINE THORACIC W/O CONT (MRI Detailed) CPT:18870 Reason for Study: Exam imported from outside Clinical History: Original Data for Imported Study Patient Name: JESSE RICHEY Date: 1940 Sex: M Study Date: 02/24/24 Study Time: 02:48:26 Study Description: MR thoracic spin wo con* [id number] Referring Physician: UNKNOWN, UNKNOWN Series 1: 1 [place] file, description: FUJI Presentation State - ANNOTATIONS Series 2: 2 [place] files, description: FUJI Presentation State - SNAPSHOT Series 3: 21 MR files, description: 3 PL LOC Series 4: 7 MR files, description: SAG T2 SURVEY Series 5: 21 MR files, description: 3 PL LOC Series 6: 12 MR files, description: SAG T1 Series 7: 12 MR files, description: SAG STIR Series 8: 12 MR files, description: SAG T2-SCAN L TO R Series 9: 38 MR files, description: AX T2 Report Status: Electronically Filed Date Reported: APR 04, 2024 Report: Electronically generated report for outside study. Impression: Electronically generated report for outside study. VERIFIED BY: / *ELECTRONICALLY FILED* [place] [facility] Feb 21, 2024 03:04 PM MRI SPINE LUMBAR W /O CONT: JESSE RICHEY [facility] [id number] -1940 M Exm Date: FEB 21, 2024@15:04 Req Phys: GORDY LEE Loc: OUTSIDE PB-MRI (Req'g Loc) Img Loc: OUTSIDE PB-MRI Service: Unknown (Case [id number] COMPLETE) MRI SPINE LUMBAR W/O CONT (MRI Detailed) CPT:56414 Reason for Study: Exam imported from outside Clinical History: Original Data for Imported Study Patient Name: JESSE RICHEY Date: 1940 Sex: M Study Date: 02/21/24 Study Time: 03:04:49 Study Description: MR lumbar spine wo con* [id number] Referring Physician: UNKNOWN, UNKNOWN Series 1: 1 [place] file, description: FUJI Presentation State - ANNOTATIONS Series 2: 1 [place] file, description: FUJI Presentation State - SNAPSHOT Series 3: 9 MR files, description: 3 AXIS LOC Series 4: 7 MR files, description: SAG T2 UPPER [1] Series 5: 7 MR files, description: SAG T2 LOWER [1] Series 6: 9 MR files, description: 3 AXIS LOC (M) Series 7: 12 MR files, description: SAG T2 Series 8: 12 MR files, description: SAG T1(IR) Series 9: 12 MR files, description: SAG STIR Series 10: 30 MR files, description: AX PD Series 11: 30 MR files, description: AX T2 Report Status: Electronically Filed Date Reported: APR 04, 2024 Report: Electronically generated report for outside study. Impression: Electronically generated report for outside study. VERIFIED BY: / *ELECTRONICALLY FILED* [place] [facility] Jan 26, 2024 12:39 PM SPINE LUMBOSACRAL 2 OR 3 VIEWS: JESSE RICHEY [facility] [id number] -1940 M Exm Date: JAN 26, 2024@12:39 Req Phys: GORDY LEE Pat Loc: PB-JULIUS PACT MEDRANO CALIN (Req'g L Img Loc: PB-XRAY [place] Service: [place] [address] (Case [id number] COMPLETE) SPINE LUMBOSACRAL 2 OR 3 VIEWS (RAD Detailed) CPT:42337 Reason for Study: mid to lower back pain Clinical History: Report Status: Verified Date Reported: JAN 26, 2024 Date Verified: JAN 26, 2024 [employer] E-Sig: Report: EXAM: Lumbar spine AP, lateral, and coned lateral views. FINDINGS: There is no acute fracture or dislocation. There are chronic partial compressions with vertebroplasty involving the L1, L3, and L4 bodies which are unchanged. There is calcified atherosclerotic change involving the abdominal aorta. There are osseous degenerative changes. There is very mild scoliosis. There is mild narrowing of the L1-2, L2-3, L4-5,, and L5-S1 disc spaces. Impression: 1. No evidence of acute osseous injury involving the lumbar spine. 2. Old partial compression with vertebroplasty involving the L1, L3, and L4 vertebral bodies which appear unchanged. 3. Osseous degenerative changes. 4. Mild decrease in the disc spaces at the L1-2, L2-3, L4-5, and L5-S1 levels. 5. Very mild scoliosis. 6. Calcified atherosclerotic change involving the abdominal aorta. Primary Interpreting Staff: Adin Montnaez M.D., Radiology ([employer], no e-sig) /ADIN ALEJANDRO [facility] Jan 26, 2024 12:39 PM CHEST X-RAY, 2 VIE WS: RICHEYJESSE [facility] [id number] -1940 M Exm Date: JAN 26, 2024@12:39 Req Phys: GORDY LEE Pat Loc: PB-JULIUS PACT MEDRANO CALIN (Req'g L Img Loc: PB-XRAY [place] Service: [place] [address] (Case [id number] COMPLETE) CHEST X-RAY, 2 VIEWS (RAD Detailed) CPT:61501 Reason for Study: recent bronchitis still symptomatic Clinical History: Report Status: Verified Date Reported: JAN 26, 2024 Date Verified: JAN 26, 2024 [employer] E-Sig: Report: EXAM: Chest x-ray PA and lateral views. FINDINGS: The heart is normal in size. There is calcified atherosclerotic change involving the thoracic aorta. There is no pulmonary vascular congestion. There is old granulomatous disease. There is decreased inspiratory effort compared to the previous study. There are degenerative changes involving the thoracic spine along with diffuse idiopathic skeletal hyperostosis. There is moderate compression of the T3,, T4, and T5 vertebral bodies. The lungs are free of acute infiltrate. Impression: 1. No active disease in the chest. 2. Chronic changes. 3. Decreased inspiratory effort compared to the previous study. 4. Moderate compression of the T3, T4, and T5 vertebral bodies which represents interval change compared to the chest x-ray done August 25, 2023. Primary Interpreting Staff: Adin Montanez M.D., Radiology ([employer], no e-sig) /ADIN ALEJANDRO [facility] Jan 26, 2024 12:39 PM SPINE THORACIC 2 V IEWS: JESSE RICHEY [facility] [id number] -1940 M Exm Date: JAN 26, 2024@12:39 Req Phys: GORDY LEE R Pat Loc: PB-JULIUS PACT MEDRANO CALIN (Req'g L Img Loc: PB-XRAY [place] Service: [place] [address] THIS IS AN AMENDED REPORT (Case [id number] COMPLETE) SPINE THORACIC 2 VIEWS (RAD Detailed) CPT:56318 Reason for Study: back pain Clinical History: Mid to lower back pain Report Status: Verified Date Reported: JAN 26, 2024 Date Verified: JAN 26, 2024 [employer] E-Sig: Report: EXAM: Thoracic spine AP, lateral, and lateral swimmer's views. FINDINGS: There is moderate compression of the T4 and T5 vertebral bodies which are new since the chest x-ray done August 25, 2023. The remaining vertebral body heights are unchanged. There are degenerative changes. There is diffuse idiopathic skeletal hyperostosis. Addendum: Addendum: There is also new moderate compression of the T3 vertebral body which is better seen on the lateral chest x-ray also obtained today. Impression: 1. Moderate compression of the T4 and T5 vertebral bodies which are new since the chest x-ray done August 25, 2023. 2. Degenerative changes. Addendum: 3. Moderate compression of the T3 vertebral body which was not present on the chest x-ray done August 25, 2023. Primary Interpreting Staff: Adin Montanez M.D., Radiology ([employer], no e-sig) /ADIN ALEJANDRO [facility] Encounter Notes: All associated encounter notes This section contains the clinical notes associated to the Encounter. Date/Time Encounter Note(s) Provider Source Jan 27, 2024 09:52 AM ADDENDUM: LOCAL TITLE: Addendum STANDARD TITLE: ADDENDUM DATE OF NOTE: JAN 27, 2024@09:52:27 ENTRY DATE: JAN 27, 2024@09:52:28 AUTHOR: CRAFFORD,CAROLA M EXP COSIGNER: URGENCY: STATUS: COMPLETED Pain treated in ER likely related to compression fractures as stated by covering provider, Dr. Lee. Lumbar compression fractures likely old, however thoracic compression fracture may be mnore acute with changes since July per chest xray. Bone density recommended to evaluate for Osteoporosis. Bisphosphonates contraindicated with current radiation therapy. Patient should be evaluated for teriparatide or denosumab injectgions if osteoporosis is confirmed by PCP. Calcium and vitamin D ordered with vitamin d level ordered, calcium level within range. does not appear to be on steroids, due to age, testosterone anticipated to be deficient. Supplementation not likely to be recommended by PCP due to age and comorbidities. SPINE THORACIC 2 VIEWS Exm Date: JAN 26, 2024@12:39 Req Phys: GORDY LEE Loc: PB-JULIUS PACT MEDRANO CALIN (Req'g L Img Loc: [facility] [place] Service: [place] [address] THIS IS AN AMENDED REPORT (Case [id number] COMPLETE) SPINE THORACIC 2 VIEWS (RAD Detailed) CPT:65497 Reason for Study: back pain Clinical History: Mid to lower back pain Report Status: Verified Date Reported: JAN 26, 2024 Date Verified: JAN 26, 2024 [employer] E-Sig: Report: EXAM: Thoracic spine AP, lateral, and lateral swimmer's views. FINDINGS: There is moderate compression of the T4 and T5 vertebral bodies which are new since the chest x-ray done August 25, 2023. The remaining vertebral body heights are unchanged. There are degenerative changes. There is diffuse idiopathic skeletal hyperostosis. Addendum: Addendum: There is also new moderate compression of the T3 vertebral body which is better seen on the lateral chest x-ray also obtained today. Impression: 1. Moderate compression of the T4 and T5 vertebral bodies which are new since the chest x-ray done August 25, 2023. 2. Degenerative changes. Addendum: 3. Moderate compression of the T3 vertebral body which was not present on the chest x-ray done August 25, 2023. Primary Interpreting Staff: Adin Montanez M.D., Radiology ([employer], no e-sig) /DKR SPINE LUMBOSACRAL 2 OR 3 VIEWS Exm Date: JAN 26, 2024@12:39 Req Phys: GORDY LEE [facility] Im[facility] Loc: [facility] [place] Service: [place] [address] (Case [id number] COMPLETE) SPINE LUMBOSACRAL 2 OR 3 VIEWS (RAD Detailed) CPT:46328 Reason for Study: mid to lower back pain Clinical History: Report Status: Verified Date Reported: JAN 26, 2024 Date Verified: JAN 26, 2024 [employer] E-Sig: Report: EXAM: Lumbar spine AP, lateral, and coned lateral views. FINDINGS: There is no acute fracture or dislocation. There are chronic partial compressions with vertebroplasty involving the L1, L3, and L4 bodies which are unchanged. There is calcified atherosclerotic change involving the abdominal aorta. There are osseous degenerative changes. There is very mild scoliosis. There is mild narrowing of the L1-2, L2-3, L4-5,, and L5-S1 disc spaces. Impression: 1. No evidence of acute osseous injury involving the lumbar spine. 2. Old partial compression with vertebroplasty involving the L1, L3, and L4 vertebral bodies which appear unchanged. 3. Osseous degenerative changes. 4. Mild decrease in the disc spaces at the L1-2, L2-3, L4-5, and L5-S1 levels. 5. Very mild scoliosis. 6. Calcified atherosclerotic change involving the abdominal aorta. Primary Interpreting Staff: Adin Montanez M.D., Radiology ([facility], no e-sig) /DKR CHEST X-RAY, 2 VIEWS Exm Date: JAN 26, 2024@12:39 Req Phys: GORDY LEE [facility] (Req'g L Img Loc: [facility] [place] Service: Unknown [facility] [address] (Case [id number] COMPLETE) CHEST X-RAY, 2 VIEWS (RAD Detailed) CPT:71234 Reason for Study: recent bronchitis still symptomatic Clinical History: Report Status: Verified Date Reported: JAN 26, 2024 Date Verified: JAN 26, 2024 [employer] E-Sig: Report: EXAM: Chest x-ray PA and lateral views. FINDINGS: The heart is normal in size. There is calcified atherosclerotic change involving the thoracic aorta. There is no pulmonary vascular congestion. There is old granulomatous disease. There is decreased inspiratory effort compared to the previous study. There are degenerative changes involving the thoracic spine along with diffuse idiopathic skeletal hyperostosis. There is moderate compression of the T3,, T4, and T5 vertebral bodies. The lungs are free of acute infiltrate. Impression: 1. No active disease in the chest. 2. Chronic changes. 3. Decreased inspiratory effort compared to the previous study. 4. Moderate compression of the T3, T4, and T5 vertebral bodies which represents interval change compared to the chest x-ray done August 25, 2023. Primary Interpreting Staff: Adin Montanez M.D., Radiology ([employer], no e-sig) /TARIQ /minesh/ Carola Herzog APRN, MUSEUM INFORMATICS SPECIALIST-C, [facility] Ozzie Chandler [facility] Signed: 01/27/2024 10:23 Receipt Acknowledged By: 01/31/2024 12:25 /minesh/ DONNY BOB RN [facility] --- Original Document --- 01/26/24 General Note PB: Patient here for nurse visit, I reviewed the chart, recently seen in ED for bronchitis/noncardiac chest pain, discharged home on hydrocodone for pain. Patient was insistent at that time to be admitted for pain, but itwas declined by ED I am suspecting that from his coughing / bronchitis he may have suffered a compression fracture of his spine, I recommend a thoracic and lumbar spine x- raies, a chest x-ray (has completed his antibioitcs) and a Twelve-lead EKG to make sure that this is still truly noncardiac. Patient has been using a wheelchair and ambulating less over the last 8 months or so, and Secondary to patient's history of lumbar stenosis and severe peripheral arterial disease with a history of 2 stents in the left LE, I would consider in the near future to get arterial ultrasound bilateral ABIs, also consider working up his lumbar stenosis again to see if there is anything that is able to be surgically treated /minesh/ GORDY LEE MD Signed: 01/26/2024 13:00 Receipt Acknowledged By: 01/27/2024 09:51 /es/ Carola Herzog APRN, MUSEUM INFORMATICS SPECIALIST-C, C Ozzie Chandler [facility] for [facility] 01/26/2024 13:55 /minesh/ DONNY BOB RN [facility] * AWAITING SIGNATURE * PARULHEIDY Kaye 01/26/2024 ADDENDUM STATUS: COMPLETED Onset is asking if provider is able [facility] Will alert provider of request that covered nurse walkin with this nurse. /minesh/ DONNY BOB RN [facility] Signed: 01/26/2024 13:54 Receipt Acknowledged By: 01/26/2024 15:15 /minesh/ GORDY LEE MD 01/26/2024 ADDENDUM STATUS: COMPLETED Alerting CABLE SPLICER APPRENTICE as well since this nurse will be out on 02/08 when comes for appt. Will need follow up on x rays etc. /minesh/ DONNY BOB RN [facility] Signed: 01/26/2024 13:56 01/31/2024 ADDENDUM STATUS: UNSIGNED You may not VIEW this UNSIGNED Addendum. CAROLA HERZOG [facility] Jan 27, 2024 09:46 AM CARDIOLOGY NOTE: LOCAL TITLE: CP EKG PB STANDARD TITLE: CARDIOLOGY NOTE DATE OF NOTE: JAN 27, 2024@09:46:10 ENTRY DATE: JAN 27, 2024@09:46:10 AUTHOR: CLINICAL,DEVICE PRO EXP COSIGNER: URGENCY: STATUS: COMPLETED PROCEDURE SUMMARY CODE: Machine Resulted DATE/TIME PERFORMED: JAN 26, 2024@13:08:3 DOCUMENT IN [employer] SEE FULL REPORT IN VISTA IMAGING SIGNATURE NOT REQUIRED SEE SIGNATURE IN VISTA IMAGING (MUSE EKG POP) AUTO-INSTRUMENT DIAGNOSIS Procedure: [id number] 12 Lead ECG Release Status: Released Off-Line Verified Date Verified: Jan 27, 2024@09:46:04 80281.2 Ventricular Rate: 71 BPM 71211.3 Atrial Rate: 71 BPM 32067.4 P-R Interval: 196 ms 48137.5 QRS Duration: 130 ms 73205.6 Q-T Interval: 490 ms 88221 QTC Calculation(Bazett)532 ms 62098.12 Calculated P [place]: 86 degrees 60331.13 Calculated R [place]: 55 degrees 08246.14 Calculated T [place]: 67 degrees Sinus rhythm with Premature supraventricular complexes Non-specific intra-ventricular conduction block Abnormal ECG When compared with ECG of 26-JAN-2024 13:07, Premature ventricular complexes is no longer Present Confirmed by RODRIGUE VICTORIA, . ([id number]) on 01/27/2024 9:46:02 AM Administrative Closure: 01/27/2024 by: CLINICAL,DEVICE PROXY SERVICE CLINICAL,DEVICE PROXY SERVICE [facility] Jan 26, 2024 01:53 PM ADDENDUM: LOCAL TITLE: Addendum STANDARD TITLE: ADDENDUM DATE OF NOTE: JAN 26, 2024@13:53:16 ENTRY DATE: JAN 26, 2024@13:53:17 AUTHOR: DONNY BOB COSIGNER: URGENCY: STATUS: COMPLETED Onset is asking if provider is able to [facility]. Will alert provider of request that covered nurse walkin with this nurse. /minesh/ DONNY BOB RN [facility] Signed: 01/26/2024 13:54 Receipt Acknowledged By: 01/26/2024 15:15 /es/ GORDY LEE MD --- Original Document --- 01/26/24 General Note PB: Patient here for nurse visit, I reviewed the chart, recently seen in ED for bronchitis/noncardiac chest pain, discharged home on hydrocodone for pain. Patient was insistent at that time to be admitted for pain, but itwas declined by ED I am suspecting that from his coughing / bronchitis he may have suffered a compression fracture of his spine, I recommend a thoracic and lumbar spine x- raies, a chest x-ray (has completed his antibioitcs) and a Twelve-lead EKG to make sure that this is still truly noncardiac. Patient has been using a wheelchair and ambulating less over the last 8 months or so, and Secondary to patient's history of lumbar stenosis and severe peripheral arterial disease with a history of 2 stents in the left LE, I would consider in the near future to get arterial ultrasound bilateral ABIs, also consider working up his lumbar stenosis again to see if there is anything that is able to be surgically treated /minesh/ GORDY LEE MD Signed: 01/26/2024 13:00 Receipt Acknowledged By: * AWAITING SIGNATURE * PBRICKEY G 01/26/2024 13:55 /minesh/ DONNY BOB RN [facility] * AWAITING SIGNATURE * HEIDY TERAN 01/26/2024 ADDENDUM STATUS: COMPLETED Alerting CABLE SPLICER APPRENTICE as well since this nurse will be out on 02/08 when comes for appt. Will need follow up on x rays etc. /minesh/ DONNY BOB RN [facility] Signed: 01/26/2024 13:56 ODNNY OBB [facility] Jan 26, 2024 01:35 PM NURSING PROGRESS N OTE: LOCAL TITLE: NURSING NOTE PB STANDARD TITLE: NURSING PROGRESS NOTE DATE OF NOTE: JAN 26, 2024@13:35 ENTRY DATE: JAN 26, 2024@13:35:13 AUTHOR: DONNY BOB EXP COSIGNER: URGENCY: STATUS: COMPLETED NURSING NOTE PB Has ADDENDA This is a 83 year old MALE with known Allergies as noted: Patient has answered NKA On the following Active Medications: Active Outpatient Medications (including Supplies): Active Outpatient Medications Status 1) ALBUTEROL 90MCG (CFC-F) 200D ORAL INHL INHALE 2 PUFFS ACTIVE ORAL INHALATION FOUR TIMES A DAY FOR ASTHMA SHAKE WELL. RINSE MOUTHPIECE FREQUENTLY TO PREVENT CLOGGING. 2) ALBUTEROL SO4 0.083% INHL 3ML INHALE 1 VIAL ACTIVE (2.5MG/3ML) BY NEBULIZATION EVERY 6 HOURS DIRECTED FOR ASTHMA 3) CETIRIZINE HCL 10MG TAB TAKE ONE TABLET BY MOUTH ONCE ACTIVE A DAY NEEDED FOR ALLERGY SYMPTOMS 4) FLUTICASONE PROP 50MCG 120D NASAL INHL INSTILL 2 ACTIVE SPRAYS IN NOSTRIL(S) ONCE A DAY NEEDED FOR RHINITIS (MUST BE USED DIRECTED FOR MINIMUM OF 21 DAYS TO PROVIDE ADEQUATE BENEFITS) 5) HYDROPHILIC (EQV EUCERIN) TOP CREAM APPLY LIGHTLY TO ACTIVE AFFECTED AREA(S) TWICE DAILY NEEDED MOISTURIZER (EXTERNAL USE ONLY) 6) MONTELUKAST NA 10MG TAB TAKE ONE TABLET BY MOUTH ACTIVE EVERY EVENING FOR ASTHMA Active Non-VA Medications Status 1) Non-VA AMIODARONE HCL (PACERONE) 200MG TAB 200MG BY ACTIVE MOUTH ONCE A DAY 2) Non-VA ATORVASTATIN CALCIUM 80MG TAB 40MG BY MOUTH ACTIVE EVERY EVENING 3) Non-VA CLOPIDOGREL BISULFATE 75MG TAB 75MG BY MOUTH ACTIVE ONCE A DAY 4) Non-VA FERROUS SULFATE TAB 27MG BY MOUTH ONCE A DAY ACTIVE 5) Non-VA FOLIC ACID 1MG TAB 1MG BY MOUTH ONCE A DAY ACTIVE 6) Non-VA FUROSEMIDE 40MG TAB 40MG BY MOUTH TWICE DAILY ACTIVE NEEDED 7) Non-VA IMIQUIMOD 5% TOP CREAM PKT 0.25GM SPARINGLY TO ACTIVE AFFECTED AREA(S) 5X/WEEK 8) Non-VA MAGNESIUM OXIDE 400MG TAB 400MG BY MOUTH EVERY ACTIVE MORNING 9) Non-VA METOLAZONE 2.5MG TAB 2.5MG BY MOUTH ONCE A DAY ACTIVE NEEDED 10) Non-VA MULTIVITAMIN CAP/TAB 1 TABLET BY MOUTH ONCE A ACTIVE DAY 11) Non-VA POTASSIUM CL 20MEQ SA TAB (DISPERSIBLE) 20MEQ ACTIVE BY MOUTH TWICE A DAY 12) Non-VA TAMSULOSIN HCL 0.4MG CAP 0.4MG BY MOUTH EVERY ACTIVE EVENING 13) Non-VA TIOTROPIUM 18MCG INHL CAP 5 18MCG BY ORAL ACTIVE INHALATION ONCE A DAY 19 Total Medications C/C: pain wanting refill of pain med and wants more abx S: Onset used wheelchair to get to exam room. Onset reports he needs more pain medication because having left side pain back pain and still having chest pain. Onset reports pain is same as it was when he went to hospital. Marion has finished the abx doxycycline and has taken all 14 pain pills. Brings empty bottles to clinic. O/A: Please see above. indicates pain is not differant than what is was in hospital but not improving. Feels he needs pain medications still and feels maybe needs more abx. Has a cough although during time Marion was in clinic nurse did not notice a cough. reports productive cough with white sputum. reports pain to left side and back appears mid and lower back. does have hx of back pain. Onset was not more short of breath than usually. Does have a tendency to have dyspnea. Did note to have back pain with movement and appears more hunched over when he did stand up for weight etc almost like he is compensating to try and prevent the pain. Marion did not want to return to ER for evaluation. Discussed with Dr Lee. She wants chest x ray, thoracic and lumbosacral x ray. Also asked about peripheral pulses due to PVD. Pulses noted to bilateral feet. EKG also recommended this has been done and provider reviewed. 2 completed due to hard time getting a good read. could not keep still long. Vital Signs: WNL see cover sheet. O2 sat 97% RA HR 71 BP 11/65 RR 21 Weight:158.4 pounds P: Per Dr Lee. 1. Xray chest/ thoracic and ls spine- completed 2. EKG completed. noted Sinus rhythm with premature supraventricular complexes. Nonspecific intraventricular block- abnormal EKG 3. UDS completed and given to lab for processing. 4. Tramadol short supply only will not be refilled. 50mg every 6-8 hours PRN # 20. 5. Lidocaine patch 5% one every 24 hours on for 12 hours off for 12 hours-1 box no refills. 6. Advised to try and take Tylenol and use Lidocaine patches first and only use pain med if absolutely necessary since this is not director long term care medication. 7. Onset has follow up with [facility] on 02/09/24 and provider has entered note about further evaluation that may be needed. See provider note. 8. Onset asked that provider [facility] and nurse will alert provider of request. Immediate need number called to authorize local fill at [facility] preferred pharmacy. Form and scripts given to Onset to take to this pharmacy. Copy of scripts placed in scanning folder. Updated Onset that we will call to update once results are back on x rays etc. Seek ER care for any severe/ acute symtpoms. High risk of decline. May need to seek further evaluation of pain or if nothing found refer to pain management. RTC: as scheduled sooner if needed Per [facility] Directive 1605.06, wristband documentation: Patient wristband was removed and destroyed by (staff name) aleida and placed in the designated [employer] bin. /es/ DONNY BOB RN [facility] Signed: 01/26/2024 13:48 01/31/2024 ADDENDUM STATUS: COMPLETED called and discussed his prescription whether to be 90 day or 30-day and we decided on 90-day supplies. Also discussed results of x-rays That were done and notified of stress fracture to T3. Discussed I am discussing the rest of his results on his appointment on 02/08 and what we could do for pain management. Onset verbalized understanding agrees with plan at this time. continues to have some coughing at this time. Will call for sooner appointment if needed. Prescriptions called to [facility] for 90-day supply for patient's request. /minesh/ CHRISTIAN Mathews, MSN, Ozzie Chandler [facility] Signed: 01/31/2024 10:25 DONNY BOB [facility] Jan 26, 2024 12:41 PM GENERAL MEDICINE N OTE: LOCAL TITLE: General Note PB STANDARD TITLE: GENERAL MEDICINE NOTE DATE OF NOTE: JAN 26, 2024@12:41 ENTRY DATE: JAN 26, 2024@12:41:09 AUTHOR: GORDY LEE COSIGNER: URGENCY: STATUS: COMPLETED General Note PB Has ADDENDA Patient here for nurse visit, I reviewed the chart, recently seen in ED for bronchitis/noncardiac chest pain, discharged home on hydrocodone for pain. Patient was insistent at that time to be admitted for pain, but itwas declined by ED I am suspecting that from his coughing / bronchitis he may have suffered a compression fracture of his spine, I recommend a thoracic and lumbar spine x- raies, a chest x-ray (has completed his antibioitcs) and a Twelve-lead EKG to make sure that this is still truly noncardiac. Patient has been using a wheelchair and ambulating less over the last 8 months or so, and Secondary to patient's history of lumbar stenosis and severe peripheral arterial disease with a history of 2 stents in the left LE, I would consider in the near future to get arterial ultrasound bilateral ABIs, also consider working up his lumbar stenosis again to see if there is anything that is able to be surgically treated /minesh/ GORDY LEE MD Signed: 01/26/2024 13:00 Receipt Acknowledged By: 01/27/2024 09:51 /es/ Carola Herzog APRN, MUSEUM INFORMATICS SPECIALIST-C, C Ozzie Chandler [facility] for [facility] 01/26/2024 13:55 /minesh/ DONNY BOB RN [facility] 02/02/2024 09:15 /minesh/ HEIDY TERAN LPN 01/26/2024 ADDENDUM STATUS: COMPLETED Onset is asking if provider is able to send [facility]. Will alert provider of request that covered nurse walkin with this nurse. /chris BOB RN [facility] Signed: 01/26/2024 13:54 Receipt Acknowledged By: 01/26/2024 15:15 /minesh/ GORDY LEE MD 01/26/2024 ADDENDUM STATUS: COMPLETED Alerting CABLE SPLICER APPRENTICE as well since this nurse will be out on 02/08 when comes for appt. Will need follow up on x rays etc. /chris BOB RN [facility] Signed: 01/26/2024 13:56 01/27/2024 ADDENDUM STATUS: COMPLETED Pain treated in ER likely related to compression fractures as stated by covering provider, Dr. Lee. Lumbar compression fractures likely old, however thoracic compression fracture may be mnore acute with changes since July per chest xray. Bone density recommended to evaluate for Osteoporosis. Bisphosphonates contraindicated with current radiation therapy. Patient should be evaluated for teriparatide or denosumab injectgions if osteoporosis is confirmed by PCP. Calcium and vitamin D ordered with vitamin d level ordered, calcium level within range. does not appear to be on steroids, due to age, testosterone anticipated to be deficient. Supplementation not likely to be recommended by PCP due to age and comorbidities. SPINE THORACIC 2 VIEWS Exm Date: JAN 26, 2024@12:39 Req Phys: GORDY LEE Pat Loc: PB-JULIUS PACT MEDRANO CALIN (Req'g L Img Loc: [facility] Service: [place] [address] THIS IS AN AMENDED REPORT (Case [id number] COMPLETE) SPINE THORACIC 2 VIEWS (RAD Detailed) CPT:23919 Reason for Study: back pain Clinical History: Mid to lower back pain Report Status: Verified Date Reported: JAN 26, 2024 Date Verified: JAN 26, 2024 [employer] E-Sig: Report: EXAM: Thoracic spine AP, lateral, and lateral swimmer's views. FINDINGS: There is moderate compression of the T4 and T5 vertebral bodies which are new since the chest x-ray done August 25, 2023. The remaining vertebral body heights are unchanged. There are degenerative changes. There is diffuse idiopathic skeletal hyperostosis. Addendum: Addendum: There is also new moderate compression of the T3 vertebral body which is better seen on the lateral chest x-ray also obtained today. Impression: 1. Moderate compression of the T4 and T5 vertebral bodies which are new since the chest x-ray done August 25, 2023. 2. Degenerative changes. Addendum: 3. Moderate compression of the T3 vertebral body which was not present on the chest x-ray done August 25, 2023. Primary Interpreting Staff: Adin Montanez M.D., Radiology ([employer], no e-sig) /DKR SPINE LUMBOSACRAL 2 OR 3 VIEWS Exm Date: JAN 26, 2024@12:39 Req Phys: GORDY LEE Loc: PB-JULIUS PACT MEDRANO CALIN (Req'g L Img Loc: [facility] [place] Service: [place] [address] (Case [id number] COMPLETE) SPINE LUMBOSACRAL 2 OR 3 VIEWS (RAD Detailed) CPT:58131 Reason for Study: mid to lower back pain Clinical History: Report Status: Verified Date Reported: JAN 26, 2024 Date Verified: JAN 26, 2024 [employer] E-Sig: Report: EXAM: Lumbar spine AP, lateral, and coned lateral views. FINDINGS: There is no acute fracture or dislocation. There are chronic partial compressions with vertebroplasty involving the L1, L3, and L4 bodies which are unchanged. There is calcified atherosclerotic change involving the abdominal aorta. There are osseous degenerative changes. There is very mild scoliosis. There is mild narrowing of the L1-2, L2-3, L4-5,, and L5-S1 disc spaces. Impression: 1. No evidence of acute osseous injury involving the lumbar spine. 2. Old partial compression with vertebroplasty involving the L1, L3, and L4 vertebral bodies which appear unchanged. 3. Osseous degenerative changes. 4. Mild decrease in the disc spaces at the L1-2, L2-3, L4-5, and L5-S1 levels. 5. Very mild scoliosis. 6. Calcified atherosclerotic change involving the abdominal aorta. Primary Interpreting Staff: Adin Montanez M.D., Radiology ([employer], no e-sig) /DKR CHEST X-RAY, 2 VIEWS Exm Date: JAN 26, 2024@12:39 Req Phys: GORDY LEE Pat Loc: PB-JULIUS PACT [facility] (Req'g L Img Loc: [facility] [place] Service: [place] [address] (Case [id number] COMPLETE) CHEST X-RAY, 2 VIEWS (RAD Detailed) CPT:26432 Reason for Study: recent bronchitis still symptomatic Clinical History: Report Status: Verified Date Reported: JAN 26, 2024 Date Verified: JAN 26, 2024 [employer] E-Sig: Report: EXAM: Chest x-ray PA and lateral views. FINDINGS: The heart is normal in size. There is calcified atherosclerotic change involving the thoracic aorta. There is no pulmonary vascular congestion. There is old granulomatous disease. There is decreased inspiratory effort compared to the previous study. There are degenerative changes involving the thoracic spine along with diffuse idiopathic skeletal hyperostosis. There is moderate compression of the T3,, T4, and T5 vertebral bodies. The lungs are free of acute infiltrate. Impression: 1. No active disease in the chest. 2. Chronic changes. 3. Decreased inspiratory effort compared to the previous study. 4. Moderate compression of the T3, T4, and T5 vertebral bodies which represents interval change compared to the chest x-ray done August 25, 2023. Primary Interpreting Staff: Adin Montanez M.D., Radiology ([employer], no e-sig) /DUNCANR /minesh/ Carola Herzog APRN, MUSEUM INFORMATICS SPECIALIST-C, C Ozzie Biggshing [facility] Signed: 01/27/2024 10:23 Receipt Acknowledged By: 01/31/2024 12:25 /minesh/ DONNY BOB RN [facility] 01/31/2024 ADDENDUM STATUS: COMPLETED pact provider has called Onset this am to update on compression fractures. Nurse did not repeat call. /minesh/ DONNY [place] [facility] Signed: 01/31/2024 12:25 GORDY LEE [facility]
--- OUTSIDE RECORDS SUMMARY | 2024-02-02 06:00 | XMS_ITS | Encounter Summary ---
Author Name [facility] [place] [facility] [place] [facility] [place] Address [address] [place] [id number] Care Team Providers Care Military Professional Name Role Phone RICKEY PARK Primary Care [...] Patient's Relationship to Policy Harrison [facility] (WNR) MEDICARE ADVANTAGE [facility] (WNR) Oct 28, 2022 [facility] [id number] [phone] Kyae RICHEY PATIENT MEDICARE (WNR) MEDICARE (M) PART A Apr 29, 2007 PART A [id number] Kaye RICHEY PATIENT MEDICARE (WNR) MEDICARE (M) PART B Apr 29, 2007 PART B [id number] 13A Kaye RICHEY PATIENT Selected Encounter This section includes the information on record at [place] for the Encounter. Date/Time Encounter Type Encounter Description Reason Provider Source Feb 02, 2024 11:00 AM OFF/OP EST SEPTEMBER X REQ PHY/QHP PRIMARY CARE/MEDICINE ICD-10-CM M54.50 Low back pain, unspecified ANA NIELSEN Encounter Template Text not used by VA Assessments - Encounter Diagnoses This section includes the primary and secondary diagnoses documented for the Encounter. Date/Time Primary/Secondary Diagnosis Diagnosis Name Provider Source Feb 02, 2024 12:47 PM PRIMARY Low back pain, unspecified CUSTRED,ANA Richardson [facility] Plan of Treatment: Future Appointments (+ 6 months) and Future Tests (+/- 45 days) The Plan of Treatment section includes future care activities for the patient [facility] [place] [facility] This section includes future appointments and future orders which are active, pending or scheduled. Future Appointments This section includes appointments that were scheduled to occur 6 months from the date of the Encounter, up to a maximum of 20 appointments. The data comes from all [place] treatment facilities. Appointment Date/Time Appointment Type Appointme nt Facility Name Feb 07, 2024 02:45 PM AMBULATORY - [place]ICINE [place] [facility] Feb 09, 2024 02:00 PM AMBULATORY - MEDICINE [facility] Feb 16, 2024 01:20 PM AMBULATORY - MEDICINE [facility] Feb 16, 2024 02:00 PM AMBULATORY - MEDICINE [facility] Feb 21, 2024 02:30 PM AMBULATORY - [place]IC[place] [facility] Feb 23, 2024 01:00 PM AMBULATORY - MEDICINE [facility] Feb 24, 2024 08:00 AM AMBULATORY - MEDICINE [place] [facility] Mar 06, 2024 07:15 AM AMBULATORY - MEDICINE [place] [facility] Mar 14, 2024 02:00 PM AMBULATORY - MEDICINE [facility] Mar 22, 2024 11:30 AM AMBULATORY - MEDICINE [facility] Mar 22, 2024 01:30 PM AMBULATORY - MEDICINE [facility] Mar 22, 2024 03:00 PM AMBULATORY - MEDICINE [facility] Apr 16, 2024 08:45 AM AMBULATORY - MEDICINE [place] [facility] May 10, 2024 02:00 PM AMBULATORY - MEDICINE [facility] May 17, 2024 07:45 AM AMBULATORY - MEDICINE [place] [facility] May 31, 2024 09:40 AM AMBUL[place]ORY - [place] [facility] Jun 04, 2024 10:00 AM AMBULATORY - [place]IC[place] [facility] Jun 13, 2024 02:30 PM AMBULATORY - MEDICINE [place] [facility] Jul 02, 2024 09:30 AM AMBULATORY - MEDICINE [facility] Jul 04, 2024 03:00 PM AMBULATORY - MEDICINE [place] [facility] Lab Results: +/- 30 days of the encounter This section includes the Chemistry and Hematology Lab Results on record with [place] for the patient. Radiology Reports and Pathology Reports are provided separately, in subsequent sections. Lab Results This section contains the Chemistry/Hematology Results that were resulted 30 days before or 30 daysafter the date of the Encounter. Date/Time Source Result Type Result - Unit Interpretation Reference Range Specimen Type Comment Feb 16, 2024 01:22 PM [facility] VITAMIN B1 PLASMA Specimen Type: PLASMA Comment: Vitamin supplementation within 24 hours prior to blood draw may affect the accuracy of the results. This test was developed and its analytical performance characteristics have been determined by [facility] [place], [place]. It has not been cleared or approved by the U.S. Food and Drug Administration. This assay has been validated pursuant to the CLIA regulations and is used for clinical purposes. Test Performed by [email or web address], [facility], [address] [place] [address] Shan Knott M.D., Ph.D., Director of Laboratories , CLIA [id number] Ordering Provider: RICKEY PARK Report Released Date/Time: Feb 09, 2024 06:57 AM Reporting Lab: [facility] [address] [facility] [address] Performing Lab[facility] [address] [facility] VITAMIN B1 14 nmol/L 8-30 Feb 16, 2024 01:22 PM [facility] CB CYSTATIN C EGFR PANELS (ST-PB-ND) PLASMA Spec imen Type: PLASMA Comment: Choice of which of the reported eGFR values to use depends on the clinical situation. For example, for patients with severe muscle wasting or reduced muscle mass, eGFR calculated using the 2012 cystatin equation may be preferred. Ordering Provider: RICKEY PARK Report Released Date/Time: Feb 09, 2024 06:57 AM Reporting Lab: [facility] [address] [address] Performing Lab: [facility] [address] [address] CYSTATIN C 1.43 mg/L 0.57-1.80 CKD-EPI CYSTATIN C (2011) 44.5 >60 CKD-EPI CREAT-CYSC (2020) 54.0 >60 CREATININE (STL) 1.18 mg/dL 0.7-1.3 Feb 16, 2024 01:22 PM [place] [facility] B12 SERUM Specimen Type: SERUM No comment entered. Ordering Provider: RICKEY PARK Report Released Date/Time: Feb 09, 2024 06:57 AM Reporting Lab: [place] [facility] [address] [place] [address] Performing Lab: [place] [facility] [address] [place] [address] B12 701 pg/mL 213-816 Feb 16, 2024 01:22 PM [place] [facility] FOLATE (PB) SERUM Specimen Typ e: SERUM No comment entered. Ordering Provider: RICKEY PARK Report Released Date/Time: Feb 09, 2024 06:57 AM Reporting Lab: [place] [facility] [address] [place] [address] Performing Lab: [place] [facility] [address] [place] [address] FOLATE (PB) 17.6 ng/mL 7-20 Feb 16, 2024 01:22 PM [facility] [place] [place] [facility] MAGNESIUM PLASMA Specimen Typ e: PLASMA No comment entered. Ordering Provider: RICKEY PARK Report Released Date/Time: Feb 09, 2024 06:57 AM Reporting Lab: [place] [facility] [address] [place] [address] Performing Lab: [place] [facility] [address] [place] [address] MAGNESIUM 1.81 mg/dL 1.6-2.6 Feb 16, 2024 01:22 PM [place] [place] [facility] HEPATITIS C AB (PB) SERUM Specimen Type: SERU M No comment entered. Ordering Provider: RICKEY PARK Report Released Date/Time: Feb 09, 2024 06:57 AM Reporting Lab: [place] [facility] [address] [place] [address] Performing Lab: [place] [facility] [address] [place] [address] HEPATITIS C AB (PB) Nonreactive Nonreact pinky Feb 16, 2024 01:22 PM [facility] VITAMIN D, 25-HYDROXY SERUM Specimen Type: SE RUM No comment entered. Ordering Provider: RICKEY PARK Report Released Date/Time: Feb 09, 2024 06:57 AM Reporting Lab: [place] [facility] [address] [place] [facility] Performing Lab: [place] [facility] [address] [place] [id number] VITAMIN D, 25-HYDROXY 27.0 ng/mL L 30-96 Feb 16, 2024 01:22 PM [facility] COMPREHENSIVE METABOLIC PANEL PLASMA Specimen Type: PLASMA No comment entered. Ordering Provider: RICKEY PARK Report Released Date/Time: Feb 09, 2024 06:57 AM Reporting Lab: [place] [facility] [address] [place] [facility] Performing Lab: [place] [facility] [address] [place] [address] CREATININE 1.26 mg/dL 0.7-1.3 UREA NITROGEN 9 [...] 2020) 57 Jan 26, 2024 12:39 PM [facility] DRUG SCREEN URINE-inhouse (PB) URINE Specimen Type: URINE No comment entered. Ordering Provider: GORDY LEE Report Released Date/Time: Jan 26, 2024 12:34 PM Reporting Lab: [place] [facility] [address] [place] [id number] Performing Lab: [place] [facility] [address] [address] OPIATES (PB) Positive Negative COCAINE... Negative Negative THC(Marijuana... Negative Negative PCP...(Phencyclidine) Negative Negative BENZODIAZEPINE (PB) Negative Negative BARBITURATES (PB) Negative Negative AMPHETAMINE... Negative Negative CREATININE URINE/OTHERS 41.60 mg/dL OXYCODONE (ISMDO-RWQ-AB) Negative Negati ve ETHANOL URINE <10.0 mg/dL L 0-20 Vital Signs: All taken on the encounter date This section contains inpatient and outpatient Vital Signs collected on the date of the Encounter. Date/Time Temperature Pulse Blood Pressure Respiratory Rate SP02 Pain Height Weight Body Mass Index Source Feb 02, 2024 12:38 PM 97.1 74 113/66 18 [facility] Feb 02, 2024 11:20 AM 97.4 65 113/66 94 [facility] Social History: Smoking Status (Most current) and Tobacco Use (All prior to encounter date) This section includes the most current, and the historical, smoking and tobacco- related health factors from the [place] facility where the Encounter took place. Current Smoking Status This section includes the most current smoking, or tobacco-related health factor, from the [place] facility where the Encounter took place. Date/Time Current Smoking Status Comment Facil ity Dec 21, 2021 08:30 AM VA-TOBACCO FORMER USER [facility] Tobacco Use History This section includes a history of the smoking, or tobacco-related health factors, that were collected on or before the date of the Encounter. The data comes from the [place] facility where the Encounter took place. 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 [facility] Dec 22, 2020 08:30 AM VA-TOBACCO USE MED NO [facility] Dec 22, 2020 08:30 AM VA-TOBACCO USER EVERY DAY [place] [facility] Dec 11, 2018 10:05 AM VA-TOBACCO FORMER USER [place] [facility] Dec 11, 2018 10:05 AM VA-TOBACCO QUIT < 1 YEAR [facility] Aug 12, 2017 04:20 PM CURRENT TOBACCO USER [place] [facility] Aug 12, 2017 04:20 PM CURRENT TOBACCO US ER (NOT READY TO QUIT) [facility] Aug 12, 2017 04:20 PM SMOKELESS TOBACCO AMOUNT/LENGTH V15 60yr [facility] Aug 12, 2017 04:20 PM TOBACCO CESSATION REFERRAL DECLINED [facility] Aug 12, 2017 04:20 PM TOBACCO MEDS OFFER ED BUT DECLINED [facility] Aug 12, 2017 04:20 PM TOBACCO USER OFFERED MEDS [place] [facility] Mar 20, 2015 08:26 AM CURRENT [place]BACCO USER [place] [facility] Mar 20, 2015 08:[address] [facility] [place] [facility] Jan 14, 2014 11:24 AM CURRENT [place]ACCO USER [place] [facility] Jan 14, 2014 11:[address] [facility] [place] [facility] Nov 02, 2012 10:28 AM CURRENT TOBACCO USER [place] [facility] Nov 02, 2012 10:[address] [facility] [place] [facility] Mar 20, 2012 01:50 PM TOBACCO MEDS OFFER ED BUT DECLINED [place] [facility] Mar 20, 2012 01:50 PM TOBACCO OFFERED PT MEDS (PROVIDER) [place] [facility] Mar 20, 2012 01:[address] [facility] [place] [facility] Nov 29, 2011 03:13 PM CURRENT TOBACCO USER [place] [facility] Nov 29, 2011 03:13 PM TOBACCO MEDS OFFER ED BUT DECLINED [place] [facility] Nov 29, 2011 03:13 PM TOBACCO OFFERED PT MEDS (PROVID[place] [facility] Nov 29, 2011 03:[address] [facility] [place] [facility] Sep 25, 2010 08:23 AM CURRENT TOBACCO USER [place] [facility] Sep 25, 2010 08:23 AM LIFETIME NON-USER OF TOBACCO [place] [facility] Sep 25, 2010 08:[address] [facility] [place] [facility] Sep 08, 2009 02:45 PM QUIT TOBACCO >12 M O & <7 YRS AGO [facility] Nov 11, 2008 01:14 PM TOBACCO MEDS OFFER ED BUT DECLINED [facility] Nov 11, 2008 01:[address] [facility] do not want [facility] May 12, 2007 09:17 AM CURRENT TOBACCO USER [facility] May 12, 2007 09:[address] [facility] do not want to quit smoking [facility] Nov 28, 2006 01:36 PM CURRENT TOBACCO USER [facility] Nov 28, 2006 01:36 PM TOBACCO MEDS OFFER ED BUT DECLINED [facility] Jul 28, 2006 08:56 AM CURRENT TOBACCO USER [facility] Advance Directives: All historical and current Section Date Range: From patient's date of to the date document was created. This section includes ALL of a patient's completed or amended VA Advance and Rescinded Directives. The entries below indicate that a directive exists for the patient, but an actual copy is not included with this document. The data comes from all [place] facilities. Date Advance Directives Provider Source Nov 24, 2016 ADVANCE DIRECTIVE SHAYNA SHEN GUADALUPE FF [facility] May 21, 2011 ADVANCE DIRECTIVE DISCUSSION ADAM SEYMOUR [facility] 2011 ADVANCE DIRECTIVE DISCUSSION ADAM SEYMOUR [facility] May 07, 2011 ADVANCE DIRECTIVE DISCUSSION ADAM SEYMOUR [facility] Radiology Reports: +/- 30 days of [...] the Encounter. The data comes from all [place] treatment facilities. Date/Time Radiology Report Provider Source Feb 24, 2024 02:48 PM MRI SPINE THORACIC W/O CONT: HAILE RICHEYYCE [facility] [id number] -1940 M Exm Date: FEB 24, 2024@14:48 Req Phys: GORDY LEE Pat Loc: OUTSIDE PB-MRI (Req'g Loc) Img Loc: OUTSIDE PB-MRI Service: Unknown (Case [id number] COMPLETE) MRI SPINE THORACIC W/O CONT (MRI Detailed) CPT:16291 Reason for Study: Exam imported from outside Clinical History: Original Data for Imported Study Patient Name: JESSE RICHEY Date: 1940 Sex: M Study Date: 02/24/24 Study Time: 02:48:26 Study Description: MR thoracic spin wo con* [id number] Referring Physician: UNKNOWN, UNKNOWN Series 1: 1 MI file, description: FUJI Presentation State - ANNOTATIONS Series 2: 2 MI files, description: FUJI Presentation State - SNAPSHOT [...] BY: / *ELECTRONICALLY FILED* [place] [facility] Feb 21, 2024 03:04 PM MRI SPINE LUMBAR W /O CONT: JESSE RICHEY [facility] [id number] -1940 M Exm Date: FEB 21, 2024@15:04 Req Phys: GORDY LEE Loc: OUTSIDE PB-MRI (Req'g Loc) Img Loc: OUTSIDE PB-MRI Service: Unknown (Case [id number] COMPLETE) MRI SPINE LUMBAR W/O CONT (MRI Detailed) CPT:81053 Reason for Study: Exam imported from outside Clinical History: Original Data for Imported Study Patient Name: JESSE RICHEY Date: 1940 Sex: M Study Date: 02/21/24 Study Time: 03:04:49 Study Description: MR lumbar spine wo con* [id number] Referring Physician: UNKNOWN, UNKNOWN Series 1: 1 MI file, description: FUJI Presentation State - ANNOTATIONS Series 2: 1 MI file, description: FUJI Presentation State - SNAPSHOT [...] VERIFIED BY: / *ELECTRONICALLY FILED* [place] [facility] Jan 26, 2024 12:39 PM SPINE LUMBOSACRAL 2 OR 3 VIEWS: JESSE RICHEY [facility] [id number] -1940 M Exm Date: JAN 26, 2024@12:39 Req Phys: GORDY LEE Pat Loc: PB-JULIUS PACT MEDRANO CALIN (Req'g L Img Loc: PB-XRAY [place] Service: [place] [address] (Case [id number] COMPLETE) SPINE LUMBOSACRAL 2 OR 3 VIEWS (RAD Detailed) CPT:20011 Reason for Study: mid to lower back pain Clinical History: Report Status: Verified Date Reported: JAN 26, 2024 Date Verified: JAN 26, 2024 Plate Cleaner E-Sig: Report: EXAM: Lumbar spine AP, lateral, [...] Primary Interpreting Staff: Adin Montanez M.D., Radiology (Plate Cleaner, no e-sig) /ADIN ALEJANDRO [facility] Jan 26, 2024 12:39 PM CHEST X-RAY, 2 VIE WS: JESSE RICHEY [facility] [id number] -1940 M Ex Date: JAN 26, 2024@12:39 Req Phys: GORDY LEE Pat Loc: PB-JULIUS PACT MEDRANO CALIN (Req'g L Img Loc: PB-XRAY [place] Service: [place] [address] (Case [id number] COMPLETE) CHEST X-RAY, 2 VIEWS (RAD Detailed) CPT:43507 Reason for Study: recent bronchitis still symptomatic Clinical History: Report Status: Verified Date Reported: JAN 26, 2024 Date Verified: JAN 26, 2024 Plate Cleaner E-Sig: Report: EXAM: Chest x-ray PA and [...] Primary Interpreting Staff: Adin Montanez M.D., Radiology (Plate Cleaner, no e-sig) /ADIN ALEJANDRO [facility] Jan 26, 2024 12:39 PM SPINE THORACIC 2 V IEWS: JESSE RICHEY [facility] [id number] -1940 M Exm Date: JAN 26, 2024@12:39 Req Phys: GORDY LEE Pat Loc: PB-JULIUS PACT MEDRANO CALIN (Req'g L Img Loc: PB-XRAY [place] Service: [place] [address] THIS IS AN AMENDED REPORT (Case [id number] COMPLETE) SPINE THORACIC 2 VIEWS (RAD Detailed) CPT:31637 Reason for Study: back pain Clinical History: Mid to lower back pain Report Status: Verified Date Reported: JAN 26, 2024 Date Verified: JAN 26, 2024 Plate Cleaner E-Sig: Report: EXAM: Thoracic spine AP, lateral, [...] Primary Interpreting Staff: Adin Montanez M.D., Radiology (Plate Cleaner, no e-sig) /ADIN ALEJANDRO [facility] Encounter Notes: All associated encounter notes This section contains the clinical notes associated to the Encounter. Date/Time Encounter Note(s) Provider Source Feb 02, 2024 12:37 PM NURSING PROGRESS N OTE: LOCAL TITLE: NURSING NOTE PB STANDARD TITLE: NURSING PROGRESS NOTE DATE OF NOTE: FEB 02, 2024@12:37 ENTRY DATE: FEB 02, 2024@12:38:03 AUTHOR: ANA NIELSEN EXP COSIGNER: URGENCY: STATUS: COMPLETED NURSING NOTE PB Has ADDENDA Blood Pressure: 113/66 Pulse: 74 Respiratory Rate: 18 Temperature: 97.1 F (36.2 C) Pulse Oximetry: 97% Active Outpatient Medications: Active Outpatient Medications (including Supplies): Active Outpatient Medications Status 1) ACETAMINOPHEN 500MG TAB TAKE ONE TABLET BY MOUTH FOUR ACTIVE TIMES A DAY NEEDED FOR PAIN CAUTION: DO NOT EXCEED 4000MG PER DAY ACETAMINOPHEN (APAP) FROM ALL MEDS. 2) ALBUTEROL 90MCG (CFC-F) 200D ORAL INHL INHALE 2 PUFFS ACTIVE ORAL INHALATION FOUR TIMES A DAY FOR ASTHMA SHAKE WELL. RINSE MOUTHPIECE FREQUENTLY TO PREVENT CLOGGING. 3) ALBUTEROL SO4 0.083% INHL 3ML INHALE 1 VIAL ACTIVE (2.5MG/3ML) BY NEBULIZATION EVERY 6 HOURS DIRECTED FOR ASTHMA 4) CALCIUM 600MG/VITAMIN D 400UNIT TAB TAKE 2 TABLETS BY ACTIVE MOUTH ONCE A DAY FOR CALCIUM SUPPLEMENTATION TAKE WITH FOOD 5) CETIRIZINE HCL 10MG TAB TAKE ONE TABLET BY MOUTH ONCE ACTIVE A DAY NEEDED FOR ALLERGY SYMPTOMS 6) FLUTICASONE PROP 50MCG 120D NASAL INHL INSTILL 2 ACTIVE SPRAYS IN NOSTRIL(S) ONCE A DAY NEEDED FOR RHINITIS (MUST BE USED DIRECTED FOR MINIMUM OF 21 DAYS TO PROVIDE ADEQUATE BENEFITS) 7) HYDROPHILIC (EQV EUCERIN) TOP CREAM APPLY LIGHTLY TO ACTIVE AFFECTED AREA(S) TWICE DAILY NEEDED MOISTURIZER (EXTERNAL USE ONLY) 8) LIDOCAINE 5% PATCH APPLY 1 PATCH TO SKIN SITE ONCE A ACTIVE DAY FOR LOCAL ANESTHESIA APPLY PATCH AND PRESS FIRMLY FOR 10-15 SECONDS. KEEP ON FOR 12 HOURS THEN REMOVE PATCH FOR 12 HOURS. 9) MONTELUKAST NA 10MG TAB TAKE ONE TABLET [...] BY ORAL ACTIVE INHALATION ONCE A DAY CC: Gerry presents to walk in clinic for back pain and chest tightness. Subjective: states he had bronchitis a few weeks ago and continues to have mid to low back pain with chest tightness. Denies fever, chills, malaise, or shortness of breath. Reports occasional productive cough. States he finished his treatment for bronchitis a week or more ago. O/A: alert and oriented. Respirations easy at rest and non-labored. Sao2 96% on room air. Lungs sounds auscultated and decreased throughout, no rales or wheezes. Heart rate regular apically with no peripheral edema. Back pain reported 8 out of 10 on pain scale. Movement makes pain worse and reports tylenol helps decrease pain. Plan/ Intervention: Assessed by [place] [facility]. Test result letter discussed with from 01/31/24. Gerry has compression fracture to area of discomfort. New rx today called into [facility] for muscle relaxer medication. educated to not use alcohol or drive while taking with stated understanding. Consult by provider placed for orthopedics at [facility] to evaluate and treat back. aware that if pain becomes severe or new symptoms such as incontinence, radiating pain, or numbness seek evaluation in ER. RTC: As scheduled and as needed. /es/ ANA SHABAZZ RN [facility] Signed: 02/02/2024 12:46 Receipt Acknowledged By: 02/03/2024 07:16 /es/ CHRISTIAN Mathews, MSN, Ozzie Bañuelos [facility] 02/02/2024 ADDENDUM STATUS: COMPLETED Per [facility] Directive 1605.06, wristband documentation: Patient wristband was removed and destroyed by (staff name) Ana Nielsen RN and placed in the designated [employer] bin. /minesh/ ANA SHABAZZ RN [facility] Signed: 02/02/2024 12:47 ANA NIELSEN [facility]
--- OUTSIDE RECORDS SUMMARY | 2024-02-13 06:00 | XMS_ITS ---
Author Organization [facility], [employer] Address [address] [place] [address] Care Team Providers Care University Librarian Name Role Phone [facility] Primary Care Provider Lucina claudia KERN ED Unavailable [phone] Wi, [place] Unavailable Unavailable DAVIN HOWARD Unavailable [phone] REASON FOR VISIT 6 wks w/ ua/pvr/psa Encounters Encounter Location Date Provider Diagnosis [facility], [employer] [address] [place] [address] 02/13/2024 DAVIN HOWARD Plan Of Treatment No Information Progress Notes * Reginald PELAEZ MDOB:[birth year] (84 yo M)Acc No.[id number]:02/13/2024 Progress Notes Patient: Mayo BRANReginald HAMMER Provider: PIERO Carbone :1940 A ge:83 Y S ex:Male Date:02/13/2024 Address:[address] [place], [place] [phone] Pcp:[facility] Subjective: * Chief Complaints: * 1 . 6 wks w/ ua/pvr/psa. * Medical History: Objective: * Vitals: Assessment: Plan: * Treatment: * Billing Information: * Visit Code: * Procedure Codes: * Electronic signature of DAVIN HOWARD APRN on 01/04/2025 at 07:40 AM CDT Sign off status: Pending * Provider: PIERO Carbone Date: 0 02/13/2024 Generated for Nelia reardon/Tiffaine/Quinitting on: 0 01/04/2025 07:40 AM CDT
--- OUTSIDE RECORDS SUMMARY | 2024-03-22 06:30 | XMS_ITS | Encounter Summary ---
Author Name [facility] [facility] [place] [facility] [place] Address [address] [place] [address] Care Team Providers Care Manager Ambulatory Name Role Phone [facility] Primary Care Provider Unavailabl e Insurance [...] Name Patient's Relationship to Policy Harrison [facility] (WNR) MEDICARE ADVANTAGE [facility] (WNR) [facility] [id number] [phone] Kaye RICHEY PATIENT MEDICARE (WNR) MEDICARE (M) PART A Apr 29, 2007 PART A [id number] Kaye RICHEY PATIENT MEDICARE (WNR) MEDICARE (M) PART B Apr 29, 2007 PART B [id number] Kaye RICHEY PATIENT Selected Encounter This section includes the information on record at [place] for the Encounter. Date/Time Encounter Type Encounter Description Reason Provider Source Mar 22, 2024 11:30 AM OFFICE O/P EST MOD 30 MIN PRIMARY CARE/MEDICINE ICD-10-CM Z00.01 Encounter for general adult medical exam w abnormal findings [facility] IHGuerita Encounter Template Text not used by VA Assessments - Encounter Diagnoses This section includes the primary and secondary diagnoses documented for the Encounter. Date/Time Primary/Secondary Diagnosis Diagnosis Name Provider Source Mar 22, 2024 02:01 PM PRIMARY Encounter for general adult medical exam w abnormal findings [facility] Mar 22, 2024 02:01 PM SECONDARY Chronic obstructive pulmonary disease, unspecified [facility] Mar 22, 2024 02:01 PM SECONDARY Essential (primary) hypertension [facility] Mar 22, 2024 02:01 PM SECONDARY Hyperlipidemia, unspecified [facility] Mar 22, 2024 02:01 PM SECONDARY Low back pain, unspecified [facility] [place] Mar 22, 2024 02:01 PM SECONDARY Pain in left foot [facility] Mar 22, 2024 02:01 PM SECONDARY Pain in right foot [facility] Mar 22, 2024 02:01 PM SECONDARY Peripheral vascular disease, unspecified [facility] Mar 22, 2024 02:01 PM SECONDARY Primary osteoarthritis, unspecified site [facility] Mar 22, 2024 02:01 PM SECONDARY Unspecified atrial fibrillation [facility] Plan of Treatment: Future Appointments (+ 6 months) and Future Tests (+/- 45 days) The Plan of Treatment section includes future care activities for the patient from all [place] [facility] This section includes future appointments and future orders which are active, pending or scheduled. Future Appointments This section includes appointments that were scheduled to occur 6 months from the date of the Encounter, up to a maximum of 20 appointments. The data comes from all [place] treatment facilities. Appointment Date/Time Appointment Type Appointme nt Facility Name Apr 16, 2024 08:45 AM AMBULATORY - MEDICINE [facility] May 10, 2024 02:00 PM [facility] May 17, 2024 07:45 AM AMBULATORY - MEDICINE [facility] May 31, 2024 09:40 AM AMBULATORY - SURGERY [facility] Jun 04, 2024 10:00 AM AMBULATORY - MEDICINE [facility] Jun 13, 2024 02:30 PM AMBULATORY - MEDICINE [facility] Jul 02, 2024 09:30 AM AMBULATORY - MEDICINE [facility] Jul 04, 2024 03:00 PM AMBULATORY - MEDICINE [facility] Jul 09, 2024 10:15 AM AMBULATORY - MEDICINE [facility] Jul 12, 2024 08:00 AM AMBULATORY - MEDICINE [facility] Jul 13, 2024 03:18 PM [facility] - [facility]ICINE [facility] Jul 30, 2024 02:30 PM AMBULATORY - MEDICINE [facility] Aug 09, 2024 10:15 AM AMBULATORY - MEDICINE [facility] Aug 09, 2024 12:00 PM AMBULATORY - MEDICINE [facility] Aug 27, 2024 01:34 PM AMBULATORY - NONE [facility] Aug 31, 2024 08:00 AM AMBULATORY - MEDICINE [facility] Sep 14, 2024 10:45 AM AMBULATORY - MEDICINE [facility] Vital Signs: All taken on the encounter date This section contains inpatient and outpatient Vital Signs collected on the date of the Encounter. Date/Time Temperature Pulse Blood Pressure Respiratory Rate SP02 Pain Height Weight Body Mass Index Source Mar 22, 2024 01:10 PM 97.6 76 122/72 97 [facility] Social History: Smoking Status (Most current) and Tobacco Use (All prior to encounter date) This section includes the most current, and the historical, smoking and tobacco- related health factors from the [place] facility where the Encounter took place. Current Smoking Status This section includes the most current smoking, or tobacco-related health factor, from the [place] facility where the Encounter took place. Date/Time Current Smoking Status Comment Facil ity Mar 22, 2024 11:30 AM VA-TOBACCO USER EVERY DAY [facility] Tobacco Use History This section includes a history of the smoking, or tobacco-related health factors, that were collected on or before the date of the Encounter. The data comes from the [place] facility where the Encounter took place. Date/Time Smoking Status/Tobacco Use Comment F acility Mar 22, 2024 11:30 AM VA-TOBACCO USE 30 YEARS OR MORE [facility] Mar 22, 2024 11:30 AM VA-TOBACCO USE ADVICE [facility] Mar 22, 2024 11:30 AM VA-TOBACCO USE BORDER PATROL OFFICER NO [facility] Mar 22, 2024 11:30 AM VA-TOBACCO USE MED NO [facility] Mar 22, 2024 11:30 AM VA-TOBACCO USER EVERY DAY [facility] Dec 21, 2021 08:30 AM VA-TOBACCO FORMER USER [facility] Dec 21, 2021 08:30 AM VA-TOBACCO QUIT 5 TO < 15 YRS [facility] Dec 22, 2020 08:30 AM VA-TOBACCO DOESNT USE WI 30 MIN WAKEUP [facility] Dec 22, 2020 08:30 AM VA-TOBACCO USE 30 YEARS OR MORE [facility] Dec 22, 2020 08:30 AM VA-TOBACCO USE ADVICE [facility] Dec 22, 2020 08:30 AM VA-TOBACCO USE BORDER PATROL OFFICER NO [facility] Dec 22, 2020 08:30 AM VA-TOBACCO USE MED NO [facility] Dec 22, 2020 08:30 AM VA-TOBACCO USER EVERY DAY [facility] Dec 11, 2018 10:05 AM VA-TOBACCO FORMER USER [facility] Dec 11, 2018 10:05 AM VA-TOBACCO QUIT < 1 YEAR [facility] Aug 12, 2017 04:20 PM CURRENT TOBACCO USER [facility] Aug 12, 2017 04:20 PM CURRENT TOBACCO US ER (NOT READY TO QUIT) [facility] Aug 12, 2017 04:20 PM SMOKELESS TOBACCO AMOUNT/LENGTH V15 60yr [facility] Aug 12, 2017 04:20 PM TOBACCO CESSATION REFERRAL DECLINED [facility] Aug 12, 2017 04:20 PM TOBACCO MEDS OFFER ED BUT DECLINED [facility] Aug 12, 2017 04:20 PM TOBACCO USER OFFERED MEDS [facility] Mar 20, 2015 08:26 AM CURRENT TOBACCO USER [facility] Mar 20, 2015 08:[address] [facility] Jan 14, 2014 11:24 AM CURRENT TOBACCO USER [facility] Jan 14, 2014 11:[address] [facility] Nov 02, 2012 10:28 AM CURRENT TOBACCO USER [facility] Nov 02, 2012 10:[address] [facility] Mar 20, 2012 01:50 PM TOBACCO MEDS OFFER ED BUT DECLINED [facility] Mar 20, 2012 01:50 PM TOBACCO OFFERED PT MEDS (PROVIDER) [facility] Mar 20, 2012 01:[address] [facility]MOKING CLINIC [facility] Nov 29, 2011 03:13 PM CURRENT TOBACCO USER [facility] Nov 29, 2011 03:13 PM TOBACCO MEDS OFFER ED BUT DECLINED [facility] Nov 29, 2011 03:13 PM TOBACCO OFFERED PT MEDS (PROVIDER) [facility] Nov 29, 2011 03:[address] [facility]IN[facility] Sep 25, 2010 08:23 AM CURRENT TOBACCO USER [facility] Sep 25, 2010 08:23 AM LIFETIME NON-USER OF TOBACCO [facility] Sep 25, 2010 08:[address] [facility] Sep 08, 2009 02:45 PM QUIT TOBACCO >12 M O & <7 YRS AGO [facility] Nov 11, 2008 01:14 PM TOBACCO MEDS OFFER ED BUT DECLINED [facility] Nov 11, 2008 01:[address] [facility]IN[facility] do not want [facility] May 12, 2007 09:17 AM CURRENT TOBACCO USER [facility] May 12, 2007 09:[address] [facility] do not want to quit smoking [facility] Nov 28, 2006 01:36 PM CURRENT TOBACCO USER [facility] Nov 28, 2006 01:36 PM TOBACCO MEDS OFFER ED BUT DECLINED [facility] Jul 28, 2006 08:56 AM CURRENT TOBACCO USER [facility] Advance Directives: All historical and current Section Date Range: From patient's date of to the date document was created. This section includes ALL of a patient's completed or amended [place] Advance and Rescinded Directives. The entries below indicate that a directive exists for the patient, but an actual copy is not included with this document. The data comes from all [place] facilities. Date Advance Directives Provider Source Nov 24, 2016 ADVANCE DIRECTIVE SHAYNA SHENU [facility] May 21, 2011 ADVANCE DIRECTIVE DISCUSSION ADAM SEYMOUR [facility] 2011 ADVANCE DIRECTIVE DISCUSSION ADAM SEYMOUR [facility] May 07, 2011 ADVANCE DIRECTIVE DISCUSSION DAWNADAM W [facility] Radiology Reports: +/- 30 days of the [...] the Encounter. The data comes from all [place] treatment facilities. Date/Time Radiology Report Provider Source Feb 24, 2024 02:48 PM MRI SPINE THORACIC W/O CONT: JESSE RICHEY [facility] [id number] -1940 M Exm Date: FEB 24, 2024@14:48 Req Phys: GORDY LEE Loc: OUTSIDE PB-MRI (Req'g Loc) Img Loc: OUTSIDE PB-MRI Service: Unknown (Case [id number] COMPLETE) MRI SPINE THORACIC W/O CONT (MRI Detailed) CPT:40672 Reason for Study: Exam imported from outside Clinical History: Original Data for Imported Study Patient Name: JESSE RICHEY Date: 1940 Sex: M Study Date: 02/24/24 Study Time: 02:48:26 Study Description: MR thoracic spin wo con* [id number] Referring Physician: UNKNOWN, UNKNOWN Series 1: 1 [place] file, description: FUJI Presentation State - ANNOTATIONS Series 2: 2 [place] files, description: FUJI Presentation State - SNAPSHOT [...] outside study. VERIFIED BY: / *ELECTRONICALLY FILED* [facility] Feb 21, 2024 03:04 PM MRI SPINE LUMBAR W /O CONT: JESSE RICHEY [facility] [id number] -1940 M Exm Date: FEB 21, 2024@15:04 Req Phys: GORDY LEE Loc: OUTSIDE PB-MRI (Req'g Loc) Img Loc: OUTSIDE PB-MRI Service: Unknown (Case [id number] COMPLETE) MRI SPINE LUMBAR W/O CONT (MRI Detailed) CPT:21092 Reason for Study: Exam imported from outside Clinical History: Original Data for Imported Study Patient Name: JESSE RICHEY Date: 1940 Sex: M Study Date: 02/21/24 Study Time: 03:04:49 Study Description: MR lumbar spine wo con* [id number] Referring Physician: UNKNOWN, UNKNOWN Series 1: 1 [place] file, description: FUJI Presentation State - ANNOTATIONS Series 2: 1 [place] file, description: FUJI Presentation State - SNAPSHOT [...] study. VERIFIED BY: / *ELECTRONICALLY FILED* [facility] Encounter Notes: All associated encounter notes This section contains the clinical notes associated to the Encounter. Date/Time Encounter Note(s) Provider Source Apr 11, 2024 01:48 PM ADDENDUM: LOCAL TITLE: Addendum STANDARD TITLE: ADDENDUM DATE OF NOTE: APR 11, 2024@13:48:57 ENTRY DATE: APR 11, 2024@13:48:58 AUTHOR: GORDY LEE EXP COSIGNER: URGENCY: STATUS: COMPLETED I was notified today of MRI lumbar spine and MRI thoracic spine done 01/2024 the patient belongs to A different provider. Impression: Electronically generated report for outside study. So I am passing along the message just to make sure that those images were reviewed. /es/ GORDY LEE MD Signed: 04/11/2024 13:52 Receipt Acknowledged By: 04/11/2024 15:06 /es/ CHRISTIAN Mathews, MSN, Ozzie Chandler [facility] --- Original Document --- 03/22/24 PRIMARY CARE CLINIC PROGRESS NOTE PB: This is a 83 year old MALE DS - Disabilities Eligibility: SC LESS THAN 50% VERIFIED Total S/C %: 10 TINNITUS 10% S/C Chief Complaint (Reason for today's visit): annual appointment Annual appointment and lab review History of Present Illness (Subjective): Seeley presented today for annual appointment with no complaints. Seeley currently has chronic diagnoses as hypertension, chronic obstructive pulmonary disease, congestive heart failure, hyperlipidemia, vitamin D deficiency, history of A-fib, chronic low back pain, and chronic feet pain. sees cardiology dermatology pulmonology podiatry and orthopedics. Seeley denies needs today is very aware hide did address his needs and to come in and schedule appointment. Discussed with about excessive alcohol use and the things that he can cause him to very aware states that he probably went through DTs when he was in the hospital last because he was in there 14 days and they could not find anything wrong with him but he was very sick. states that he thinks that he went through DTs. Discussed in depth with the not to drive while he is drinking and to please try to cut back. Personal History: No changes Family History: No changes Surgical History: No changes Allergies: Patient has answered NKA REVIEW OF SYSTEMS: HEENT: No visual or auditory symptoms. RESPIRATORY: No shortness of breath, cough or sputum. CARDIOVASCULAR: No chest pain or palpitation. GI: No abdominal pain, nausea, vomiting or bowel changes. MUSCULOSKELETAL: No muscle aches or pains. SKIN: No new rashes, no unhealing lesions, no moles. : No urinary symptoms. PSYCH: Denies being depressed or anxious. VITALS: Temperature: 97.6 F [36.4 C] (03/22/2024 13:10) Respiratory Rate: 18 (02/02/2024 12:38) Pulse Rate: 76 (03/22/2024 13:10) Blood Pressure: 122/72 (03/22/2024 13:10) HT: 69 in [175.3 cm] (11/12/2022 10:41) WT: 158.4 lb [71.85 kg] (01/26/2024 13:48) BMI: 23.4 97% (03/22/2024 13:10) PHYSICAL EXAM: General: NAD noted, A&Ox3, pleasant, appears stated age HEENT: NCAT, TM's clear, nares and oropharynx clear Neck: Supple with normal active ROM, without any lymphadenopathy Heart: RRR, no murmur, clicks, or rub Resp: Lungs CTA bilaterally, respirations even and unlabored Abdomen: Soft, non-distended, non-tender Ext: No clubbing, cyanosis, edema or obvious deformity Neuro: Grossly intact Psych: Affect normal, answers questions appropriately throughout visit DIAGNOSTIC STUDIES: Labs Performed/Reviewed at Today's Visit: Reviewed labs drawn in January Radiology/Imaging Performed/Reviewed at Today's Visit: None On the following Active Medications: Active Outpatient [...] A DAY NEEDED FOR ALLERGY SYMPTOMS 6) FLUOROURACIL 5% CREAM APPLY THIN AMOUNT TO ROUGH ACTIVE SCALY AREAS OF FACE. TO AFFECTED AREA(S) TWICE A DAY FOR 2 WEEKS AVOID SUN EXPOSURE. FOLLOW DIRECTIONS CAREFULLY FOR PROPER HANDLING/DISPOSAL. 7) FLUTICASONE PROP 50MCG 120D NASAL INHL INSTILL 2 ACTIVE SPRAYS IN NOSTRIL(S) ONCE A DAY NEEDED FOR RHINITIS (MUST BE USED DIRECTED FOR MINIMUM OF 21 DAYS TO PROVIDE ADEQUATE BENEFITS) 8) HYDROPHILIC (EQV EUCERIN) TOP CREAM APPLY LIGHTLY TO ACTIVE AFFECTED AREA(S) TWICE DAILY NEEDED MOISTURIZER (EXTERNAL USE ONLY) 9) LIDOCAINE 5% PATCH APPLY 1 PATCH TO SKIN SITE ONCE A ACTIVE DAY FOR LOCAL ANESTHESIA APPLY PATCH AND PRESS FIRMLY FOR 10-15 SECONDS. KEEP ON FOR 12 HOURS THEN REMOVE PATCH FOR 12 HOURS. 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 13) PVD - peripheral vascular disease 14) Cognitive decline 15) AF - Atrial Fibrillation (SCT 92437775) 16) Cirrhosis of Liver (SCT 25361526) 17) Cholelithiasis 18) Pain in right foot 19) Pain in left foot 20) Abnormal gait 21) Spinal Stenosis of Lumbar Region (SCT 42363622) 22) compression fractures thoracic vertebra ===== MEDICATION RECONCILIATION: ACTIVE/ OUTPATIENT MEDICATIONS: MRT1 - Med Reconciliation INCLUDED IN THIS LIST: Alphabetical list of active outpatient prescriptions dispensed from this [place] (local) and dispensed from another [place] or [facility] facility (remote) as well as inpatient orders (local pending and active), local clinic medications, locally documented non-VA medications, and local prescriptions that have or been discontinued in the past 90 days. Non-VA Meds Last Documented On: Jun 23, 2023 NOTE The display of VA prescriptions dispensed from another [place] or [facility] facility (remote) is limited to active outpatient prescription entries matched to National Drug File at the originating site and may not include some items such as investigational drugs, compounds, etc. NOT INCLUDED IN THIS LIST: Medications self-entered by the patient into personal health records (i.e. [employer]) are NOT included in this list. Non-VA medications documented outside this [place], remote inpatient orders (regardless of status) and remote clinic medications are NOT included in this list. The patient and provider must always discuss medications the patient is taking, regardless of where the medication was dispensed or obtained. OUTPT ACETAMINOPHEN 500MG TAB (Status = Active) TAKE ONE TABLET BY MOUTH FOUR TIMES A DAY NEEDED FOR PAIN CAUTION: DO NOT EXCEED 4000MG PER DAY ACETAMINOPHEN (APAP) FROM ALL MEDS. Rx# [id number] Last Released: 02/02/24 Qty/Days Supply: 400/90 Rx Expiration Date: 01/26/25 Refills Remainin Indication: FOR PAIN OUTPT ALBUTEROL 90MCG (CFC-F) 200D ORAL INHL (Status = Active) INHALE 2 PUFFS ORAL INHALATION FOUR TIMES A DAY FOR ASTHMA SHAKE WELL. RINSE MOUTHPIECE FREQUENTLY TO PREVENT CLOGGING. Rx# [id number] Last Released: 12/15/23 Qty/Days Supply: 3 Rx Expiration Date: 12/12/24 Refills Remainin Indication: FOR ASTHMA OUTPT ALBUTEROL SO4 0.083% INHL 3ML (Status = Active) INHALE 1 VIAL (2.5MG/3ML) BY NEBULIZATION EVERY 6 HOURS DIRECTED FOR ASTHMA Rx# [id number] Last Released: 12/15/23 Qty/Days Supply: 120/90 Rx Expiration Date: 12/12/24 Refills Remainin Indication: FOR ASTHMA Non-VA AMIODARONE HCL (PACERONE) 200MG TAB TAKE ONE TABLET BY MOUTH ONCE A DAY Patient wants to buy from Non-CA pharmacy Non-VA ATORVASTATIN CALCIUM 80MG TAB TAKE ONE-HALF TABLET BY MOUTH EVERY EVENING Patient wants to buy from Non-CA pharmacy OUTPT CALCIUM 600MG/VITAMIN D 400UNIT TAB (Status = Active) TAKE 2 TABLETS BY MOUTH ONCE A DAY FOR CALCIUM SUPPLEMENTATION TAKE WITH FOOD Rx# [id number] Last Released: 02/02/24 Qty/Days Supply: 180 Rx Expiration Date: 01/27/25 Refills Remainin Indication: FOR CALCIUM SUPPLEMENTATION OUTPT CETIRIZINE HCL 10MG TAB (Status = Active) TAKE ONE TABLET BY MOUTH ONCE A DAY NEEDED FOR ALLERGY SYMPTOMS Rx# [id number] Last Released: 12/13/23 Qty/Days Supply: 90 Rx Expiration Date: 08/25/24 Refills Remainin Indication: FOR ALLERGY SYMPTOMS Non-VA CLOPIDOGREL BISULFATE 75MG TAB TAKE ONE TABLET BY MOUTH ONCE A DAY Patient wants to buy from Non-VA pharmacy Non-VA FERROUS SULFATE TAB TAKE 27MG BY MOUTH ONCE A DAY Patient wants to buy from Non-VA pharmacy OUTPT FLUOROURACIL 5% CREAM (Status = Active) APPLY THIN AMOUNT TO ROUGH SCALY AREAS OF FACE. TO AFFECTED AREA(S) TWICE A DAY FOR 2 WEEKS AVOID SUN EXPOSURE. FOLLOW DIRECTIONS CAREFULLY FOR PROPER HANDLING/DISPOSAL. Rx# [id number] Last Released: 02/06/24 Qty/Days Supply: 40/30 Rx Expiration Date: 02/02/25 Refills Remainin OUTPT FLUTICASONE PROP 50MCG 120D NASAL INHL (Status = Active) INSTILL 2 SPRAYS IN NOSTRIL(S) ONCE A DAY NEEDED FOR RHINITIS (MUST BE USED DIRECTED FOR MINIMUM OF 21 DAYS TO PROVIDE ADEQUATE BENEFITS) Rx# [id number] Last Released: 12/15/23 Qty/Days Supply: Rx Expiration Date: 08/25/24 Refills Remainin Indication: FOR RHINITIS Non-VA FOLIC ACID 1MG TAB TAKE ONE TABLET BY MOUTH ONCE A DAY Patient wants to buy from Non-VA pharmacy Non-VA FUROSEMIDE 40MG TAB TAKE ONE TABLET BY MOUTH TWICE A DAY NEEDED Patient wants to buy from Non-VA pharmacy OUTPT HYDROPHILIC (EQV EUCERIN) TOP CREAM (Status = Active) APPLY LIGHTLY TO AFFECTED AREA(S) TWICE DAILY NEEDED MOISTURIZER (EXTERNAL USE ONLY) Rx# [id number] Last Released: 08/30/23 Qty/Days Supply: Rx Expiration Date: 08/26/24 Refills Remainin Indication: MOISTURIZER Non-VA IMIQUIMOD 5% TOP CREAM PKT 0.25GM APPLY SPARINGLY TO AFFECTED AREA(S) 5X/WEEK Medication prescribed by Non-VA provider for 6 weeks. Indication: FOR ACTINIC KERATOSIS OUTPT LIDOCAINE 5% PATCH (Status = Active) APPLY 1 PATCH TO SKIN SITE ONCE A DAY FOR LOCAL ANESTHESIA APPLY PATCH AND PRESS FIRMLY FOR 10-15 SECONDS. KEEP ON FOR 12 HOURS THEN REMOVE PATCH FOR 12 HOURS. Rx# [id number] Last Released: 01/31/24 Qty/Days Supply: Rx Expiration Date: 01/26/25 Refills Remainin Indication: FOR LOCAL ANESTHESIA Non-VA MAGNESIUM OXIDE 400MG TAB TAKE ONE TABLET BY MOUTH EVERY MORNING Patient wants to buy from Non-VA pharmacy Non-VA METOLAZONE 2.5MG TAB TAKE ONE TABLET BY MOUTH ONCE A DAY NEEDED VA RX: Patient wants to buy from Non-VA pharmacy OUTPT MONTELUKAST NA 10MG TAB (Status = Active) TAKE ONE TABLET BY MOUTH EVERY EVENING FOR ASTHMA Rx# [id number] Last Released: 12/15/23 Qty/Days Supply: Rx Expiration Date: 12/12/24 Refills Remainin Indication: FOR ASTHMA Non-VA MULTIVITAMIN CAP/TAB TAKE ONE TABLET BY MOUTH ONCE A DAY Medication prescribed by Non-CA provider Non-CA POTASSIUM CL 20MEQ SA TAB (DISPERSIBLE) TAKE ONE TABLET BY MOUTH TWICE A DAY Patient wants to buy from Non-CA pharmacy Non-CA TAMSULOSIN HCL 0.4MG CAP TAKE 1 CAPSULE BY MOUTH EVERY EVENING [facility] to [facility] Non[facility] TIOTROPIUM 18MCG INHL CAP 5 INHALE 1 CAPSULE BY ORAL INHALATION ONCE A DAY Patient wants to buy from [facility] pharmacy SUPPLIES PHARMACY TERMS AND POSSIBLE PATIENT ACTIONS INPT = [place] inpatient order IV = CA intravenous medication OUTPT = [place] outpatient prescription PHARMACY POSSIBLE PATIENT TERMS EXPLANATION ACTIONS -------- ---- ACTIVE A prescription that can be If you have refills, filled at the local [place] pharmacy. you may request a refill of this prescription from your [place] pharmacy. CLINIC A medication you received during If you have questions a visit to a [place] clinic or about this medication emergency department. contact your [place] healthcare team. DISCONTINUED A prescription your provider has Contact your [place] stopped. It is no longer healthcare team if you available to be sent to you or need more of this picked up at the [place] pharmacy medication. window. A prescription which is too old Contact your [place] to fill. This does not refer to healthcare team if you the expiration date of the need more of this medication in the container. medication. NON-VA A medication that came from If this medication someplace other than a VA information is pharmacy. This may be a incorrect or out of prescription from either the VA date, please tell your or non-VA providers that was VA healthcare team. filled outside the VA. Or, it may be an jgci-phl-qyhnazo (OTC), herbal, dietary supplements or sample medication. ON HOLD An active prescription that will Contact your VA not be filled until pharmacy pharmacy when you need resolves the issue. more of this medication. PARKED An active prescription that will Contact your VA not be filled until the patient pharmacy when you need requests it. this medication. PENDING This prescription order has been If you have been sent to the pharmacy for review instructed to start and is not ready yet. this medication now, contact [facility]. SUSPENDED An active prescription that is Contact your [place] not scheduled to be filled yet. pharmacy if you need You should receive it before this medication now. you run out. DISCONTINUED: no changes ADDED/CHANGES: no changes NON-VA MEDICATIONS NOT LISTED ABOVE (List, including Herbals and OTC): Reviewed with patient/family members. Copy given to patient. Patient verbalized understanding? yes ===== ASSESSMENT/IMPRESSION: annual adult well exam -current Hypertension -stable Hyperlipidemia -stable COPD -stable A-fib -stable Back pain -stable Congestive heart failure -current Peripheral vascular disease -current PLAN OF CARE: Annual adult well exam reviewed last labs done in January has not been back to see us Hypertension plan to continue current medication Hyperlipidemia plan to continue taking his atorvastatin and watching what he eats. Currently sees safe and vault service mechanic COPD plan to continue current inhalers and follow-up as needed A-fib plan to continue amiodarone currently in normal sinus rhythm Chronic back pain plan to continue going to pain clinic Congestive heart failure plan to continue Lasix and potassium as needed, and seeing safe and vault service mechanic Peripheral vascular disease plan to continue to monitor, good pulses noted to feet the bilaterally good Follow-up: _12_ months and/or as needed and keep regularly scheduled appointment. Discussed diet and exercise as relevant to patient conditions. Patient is advised this primary care clinic has open access and he can make a same day appointment anytime a problem/concern arises. Patient further advised he can be seen on a walk-in basis as needed. Patient is provided clinic contact information. Treatment plan as noted above and the After Visit Summary was reviewed with Seeley; opportunity provided to report concerns and ask question regarding aspects of care or treatment or services; concurrence reached and verbalized understanding. Discussed with patient that in the event of community imaging/testing being ordered in the future, once the imaging testing has been completed, please notify PACT of within 1 week by a [facility] PACT member; this is due to intermittent lapses in notification of imaging completion within CPRS. All questions answered; agrees to plan of care. Follow up as listed above, annually, and as needed. Keep all completion at outside facility if not called with results appointments. Medications Reconciled. Time spent 30 minutes. [place] [facility] APR Float Follow-up Pos Alcohol - AT,M,N,P,PH,PS,R,S,T: Patient's AUDIT-C score was greater than or equal to 5; brief alcohol intervention is indicated. Shared concern that the patient may be drinking at unhealthy levels known to increase his/her risk of alcohol related health problems. Specifically the following were reviewed: High blood pressure, heart disease, liver disease, anxiety, bleeding from the stomach, dementia The patient was advised/informed to drink within safe limits, which are no more than 2 drinks per day on average and no more than 4 drinks on any one day AND no more than 14 drinks per week. Will discuss again at next visit. Assessment for alcohol use disorder (Based on DSM-5 criteria) completed by provider Liver Cancer (HCC) Surveillance - N,P,PH: Hepatocellular Carcinoma (HCC) Surveillance The [place] Association for the Study of Liver Diseases (AASLD) recommends surveillance for hepatocellular carcinoma (HCC) for all patients with cirrhosis and some patients with chronic hepatitis B. Patients who are at high risk for hepatocellular carcinoma (HCC) should undergo surveillance using ultrasound and alpha-fetoprotein (AFP) every 6 months. Ultrasound ordered- see orders. /minesh/ CHRISTIAN Mathews, MSN, Ozzie Bañuelos [facility] Signed: 03/22/2024 14:06 04/11/2024 ADDENDUM STATUS: COMPLETED Both of these MRIs were ordered by Dr. May and a consult /minesh/ CHRISTIAN Mathews, MSN, Ozzie Bañuelos [facility] Signed: 04/11/2024 15:05 GORDY LEE [facility] Mar 22, 2024 01:21 PM PRIMARY CARE PROGR ESS NOTE: LOCAL TITLE: PRIMARY CARE CLINIC PROGRESS NOTE PB STANDARD TITLE: PRIMARY CARE PROGRESS NOTE DATE OF NOTE: MAR 22, 2024@13:21 ENTRY DATE: MAR 22, 2024@13:21:07 AUTHOR: [place] EXP COSIGNER: URGENCY: STATUS: COMPLETED PRIMARY CARE CLINIC PROGRESS NOTE PB Has ADDENDA This is a 83 year old MALE DS - Disabilities Eligibility: SC LESS THAN 50% VERIFIED Total S/C %: 10 TINNITUS 10% S/C Chief Complaint (Reason for today's visit): annual appointment Annual appointment and lab review History of Present Illness (Subjective): presented today for annual appointment with no complaints. Seeley currently has chronic diagnoses as hypertension, chronic obstructive pulmonary disease, congestive heart failure, hyperlipidemia, vitamin D deficiency, history of A-fib, chronic low back pain, and chronic feet pain. sees cardiology dermatology pulmonology podiatry and orthopedics. denies needs today is very aware hide did address his needs and to come in and schedule appointment. Discussed with about excessive alcohol use and the things that he can cause him to very aware states that he probably went through DTs when he was in the hospital last because he was in there 14 days and they could not find anything wrong with him but he was very sick. Seeley states that he thinks that he went through DTs. Discussed in depth with the not to drive while he is drinking and to please try to cut back. Personal History: No changes Family History: No changes Surgical History: No changes Allergies: Patient has answered NKA REVIEW OF SYSTEMS: HEENT: No visual or auditory symptoms. RESPIRATORY: No shortness of breath, cough or sputum. CARDIOVASCULAR: No chest pain or palpitation. GI: No abdominal pain, nausea, vomiting or bowel changes. MUSCULOSKELETAL: No muscle aches or pains. SKIN: No new rashes, no unhealing lesions, no moles. : No urinary symptoms. PSYCH: Denies being depressed or anxious. VITALS: Temperature: 97.6 F [36.4 C] (03/22/2024 13:10) Respiratory Rate: 18 (02/02/2024 12:38) Pulse Rate: 76 (03/22/2024 13:10) Blood Pressure: 122/72 (03/22/2024 13:10) HT: 69 in [175.3 cm] (11/12/2022 10:41) WT: 158.4 lb [71.85 kg] (01/26/2024 13:48) BMI: 23.4 97% (03/22/2024 13:10) PHYSICAL EXAM: General: NAD noted, A&Ox3, pleasant, appears stated age HEENT: NCAT, TM's clear, nares and oropharynx clear Neck: Supple with normal active ROM, without any lymphadenopathy Heart: RRR, no murmur, clicks, or rub Resp: Lungs CTA bilaterally, respirations even and unlabored Abdomen: Soft, non-distended, non-tender Ext: No clubbing, cyanosis, edema or obvious deformity Neuro: Grossly intact Psych: Affect normal, answers questions appropriately throughout visit DIAGNOSTIC STUDIES: Labs Performed/Reviewed at Today's Visit: Reviewed labs drawn in January Radiology/Imaging Performed/Reviewed at Today's Visit: None On the following Active Medications: Active Outpatient [...] A DAY NEEDED FOR ALLERGY SYMPTOMS 6) FLUOROURACIL 5% CREAM APPLY THIN AMOUNT TO ROUGH ACTIVE SCALY AREAS OF FACE. TO AFFECTED AREA(S) TWICE A DAY FOR 2 WEEKS AVOID SUN EXPOSURE. FOLLOW DIRECTIONS CAREFULLY FOR PROPER HANDLING/DISPOSAL. 7) FLUTICASONE PROP 50MCG 120D NASAL INHL INSTILL 2 ACTIVE SPRAYS IN NOSTRIL(S) ONCE A DAY NEEDED FOR RHINITIS (MUST BE USED DIRECTED FOR MINIMUM OF 21 DAYS TO PROVIDE ADEQUATE BENEFITS) 8) HYDROPHILIC (EQV EUCERIN) TOP CREAM APPLY LIGHTLY TO ACTIVE AFFECTED AREA(S) TWICE DAILY NEEDED MOISTURIZER (EXTERNAL USE ONLY) 9) LIDOCAINE 5% PATCH APPLY 1 PATCH TO SKIN SITE ONCE A ACTIVE DAY FOR LOCAL ANESTHESIA APPLY PATCH AND PRESS FIRMLY FOR 10-15 SECONDS. KEEP ON FOR 12 HOURS THEN REMOVE PATCH FOR 12 HOURS. 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 13) PVD - peripheral vascular disease 14) Cognitive decline 15) AF - Atrial Fibrillation (SCT 22605439) 16) Cirrhosis of Liver (SCT 45285770) 17) Cholelithiasis 18) Pain in right foot 19) Pain in left foot 20) Abnormal gait 21) Spinal Stenosis of Lumbar Region (SCT 34137429) 22) compression fractures thoracic vertebra ===== MEDICATION RECONCILIATION: ACTIVE/ OUTPATIENT MEDICATIONS: MRT1 - Med Reconciliation INCLUDED IN THIS LIST: Alphabetical list of active outpatient prescriptions dispensed from this [place] (local) and dispensed from another [place] or [facility] facility (remote) as well as inpatient orders (local pending and active), local clinic medications, locally documented non-VA medications, and local prescriptions that have or been discontinued in the past 90 days. Non-VA Meds Last Documented On: Jun 23, 2023 NOTE The display of VA prescriptions dispensed from another [place] or [facility] facility (remote) is limited to active outpatient prescription entries matched to National Drug File at the originating site and may not include some items such as investigational drugs, compounds, etc. NOT INCLUDED IN THIS LIST: Medications self-entered by the patient into personal health records (i.e. [employer]) are NOT included in this list. Non-VA medications documented outside this [place], remote inpatient orders (regardless of status) and remote clinic medications are NOT included in this list. The patient and provider must always discuss medications the patient is taking, regardless of where the medication was dispensed or obtained. OUTPT ACETAMINOPHEN 500MG TAB (Status = Active) TAKE ONE TABLET BY MOUTH FOUR TIMES A DAY NEEDED FOR PAIN CAUTION: DO NOT EXCEED 4000MG PER DAY ACETAMINOPHEN (APAP) FROM ALL MEDS. Rx# [id number] Last Released: 02/02/24 Qty/Days Supply: 400 Rx Expiration Date: 01/26/25 Refills Remainin Indication: FOR PAIN OUTPT ALBUTEROL 90MCG (CFC-F) 200D ORAL INHL (Status = Active) INHALE 2 PUFFS ORAL INHALATION FOUR TIMES A DAY FOR ASTHMA SHAKE WELL. RINSE MOUTHPIECE FREQUENTLY TO PREVENT CLOGGING. Rx# [id number] Last Released: 12/15/23 Qty/Days Supply: Rx Expiration Date: 12/12/24 Refills Remainin Indication: FOR ASTHMA OUTPT ALBUTEROL SO4 0.083% INHL 3ML (Status = Active) INHALE 1 VIAL (2.5MG/3ML) BY NEBULIZATION EVERY 6 HOURS DIRECTED FOR ASTHMA Rx# [id number] Last Released: 12/15/23 Qty/Days Supply: 120/90 Rx Expiration Date: 12/12/24 Refills Remainin Indication: FOR ASTHMA Non-VA AMIODARONE HCL (PACERONE) 200MG TAB TAKE ONE TABLET BY MOUTH ONCE A DAY Patient wants to buy from Non-CA pharmacy Non-VA ATORVASTATIN CALCIUM 80MG TAB TAKE ONE-HALF TABLET BY MOUTH EVERY EVENING Patient wants to buy from Non-[place] pharmacy OUTPT CALCIUM 600MG/VITAMIN D 400UNIT TAB (Status = Active) TAKE 2 TABLETS BY MOUTH ONCE A DAY FOR CALCIUM SUPPLEMENTATION TAKE WITH FOOD Rx# [id number] Last Released: 02/02/24 Qty/Days Supply: 180/90 Rx Expiration Date: 01/27/25 Refills Remainin Indication: FOR CALCIUM SUPPLEMENTATION OUTPT CETIRIZINE HCL 10MG TAB (Status = Active) TAKE ONE TABLET BY MOUTH ONCE A DAY NEEDED FOR ALLERGY SYMPTOMS Rx# [id number] Last Released: 12/13/23 Qty/Days Supply: 90/90 Rx Expiration Date: 08/25/24 Refills Remainin Indication: FOR ALLERGY SYMPTOMS Non-VA CLOPIDOGREL BISULFATE 75MG TAB TAKE ONE TABLET BY MOUTH ONCE A DAY Patient wants to buy from Non-CA pharmacy Non-VA FERROUS SULFATE TAB TAKE 27MG BY MOUTH ONCE A DAY Patient wants to buy from Non-CA pharmacy OUTPT FLUOROURACIL 5% CREAM (Status = Active) APPLY THIN AMOUNT TO ROUGH SCALY AREAS OF FACE. TO AFFECTED AREA(S) TWICE A DAY FOR 2 WEEKS AVOID SUN EXPOSURE. FOLLOW DIRECTIONS CAREFULLY FOR PROPER HANDLING/DISPOSAL. Rx# [id number] Last Released: 02/06/24 Qty/Days Supply: 40/30 Rx Expiration Date: 02/02/25 Refills Remainin OUTPT FLUTICASONE PROP 50MCG 120D NASAL INHL (Status = Active) INSTILL 2 SPRAYS IN NOSTRIL(S) ONCE A DAY NEEDED FOR RHINITIS (MUST BE USED DIRECTED FOR MINIMUM OF 21 DAYS TO PROVIDE ADEQUATE BENEFITS) Rx# [id number] Last Released: 12/15/23 Qty/Days Supply: Rx Expiration Date: 08/25/24 Refills Remainin Indication: FOR RHINITIS Non-VA FOLIC ACID 1MG TAB TAKE ONE TABLET BY MOUTH ONCE A DAY Patient wants to buy from Non-CA pharmacy Non-VA FUROSEMIDE 40MG TAB TAKE ONE TABLET BY MOUTH TWICE A DAY NEEDED Patient wants to buy from Non-CA pharmacy OUTPT HYDROPHILIC (EQV EUCERIN) TOP CREAM (Status = Active) APPLY LIGHTLY TO AFFECTED AREA(S) TWICE DAILY NEEDED MOISTURIZER (EXTERNAL USE ONLY) Rx# [id number] Last Released: 08/30/23 Qty/Days Supply: Rx Expiration Date: 08/26/24 Refills Remainin Indication: MOISTURIZER Non-VA IMIQUIMOD 5% TOP CREAM PKT 0.25GM APPLY SPARINGLY TO AFFECTED AREA(S) 5X/WEEK Medication prescribed by Non-[place] provider for 6 weeks. Indication: FOR ACTINIC KERATOSIS OUTPT LIDOCAINE 5% PATCH (Status = Active) APPLY 1 PATCH TO SKIN SITE ONCE A DAY FOR LOCAL ANESTHESIA APPLY PATCH AND PRESS FIRMLY FOR 10-15 SECONDS. KEEP ON FOR 12 HOURS THEN REMOVE PATCH FOR 12 HOURS. Rx# [id number] Last Released: 01/31/24 Qty/Days Supply: Rx Expiration Date: 01/26/25 Refills Remainin Indication: FOR LOCAL ANESTHESIA Non-VA MAGNESIUM OXIDE 400MG TAB TAKE ONE TABLET BY MOUTH EVERY MORNING Patient wants to buy from Non-CA pharmacy Non-VA METOLAZONE 2.5MG TAB TAKE ONE TABLET BY MOUTH ONCE A DAY NEEDED [facility] RX: Patient wants to buy from Non-CA pharmacy OUTPT MONTELUKAST NA 10MG TAB (Status = Active) TAKE ONE TABLET BY MOUTH EVERY EVENING FOR ASTHMA Rx# [id number] Last Released: 12/15/23 Qty/Days Supply: Rx Expiration Date: 12/12/24 Refills Remainin Indication: FOR ASTHMA Non-VA MULTIVITAMIN CAP/TAB TAKE ONE TABLET BY MOUTH ONCE A DAY Medication prescribed by Non-CA provider Non-VA POTASSIUM CL 20MEQ SA TAB (DISPERSIBLE) TAKE ONE TABLET BY MOUTH TWICE A DAY Patient wants to buy from Non-CA pharmacy Non-VA TAMSULOSIN HCL 0.4MG CAP TAKE 1 CAPSULE BY MOUTH EVERY EVENING Patient wants to buy from Non-CA pharmacy Non-CA TIOTROPIUM 18MCG INHL CAP 5 INHALE 1 CAPSULE BY ORAL INHALATION ONCE A DAY Patient wants to buy from Non-CA pharmacy SUPPLIES PHARMACY TERMS AND POSSIBLE PATIENT ACTIONS INPT = [place] inpatient order IV = [place] intravenous medication OUTPT = [place] outpatient prescription PHARMACY POSSIBLE PATIENT TERMS EXPLANATION ACTIONS -------- ---- ACTIVE A prescription that can be If you have refills, filled at the local [place] pharmacy. you may request a refill of this prescription from your [place] pharmacy. CLINIC A medication you received during If you have questions a visit to a [place] clinic or about this medication emergency department. contact your [place] healthcare team. DISCONTINUED A prescription your provider has Contact your [place] stopped. It is no longer healthcare team if you available to be sent to you or need more of this picked up at the [place] pharmacy medication. window. A prescription which is too old Contact your [place] to fill. This does not refer to healthcare team if you the expiration date of the need more of this medication in the container. medication. NON-VA A medication that came from If this medication someplace other than a VA information is pharmacy. This may be a incorrect or out of prescription from either the VA date, please tell your or non-VA providers that was [place] healthcare team. filled outside the VA. Or, it may be an imaa-pis-cemjqme (OTC), herbal, dietary supplements or sample medication. ON HOLD An active prescription that will Contact your VA not be filled until pharmacy pharmacy when you need resolves the issue. more of this medication. PARKED An active prescription that will Contact your VA not be filled until the patient pharmacy when you need requests it. this medication. PENDING This prescription order has been If you have been sent to the pharmacy for review instructed to start and is not ready yet. this medication now, contact your VA pharmacy. SUSPENDED An active prescription that is Contact your VA not scheduled to be filled yet. pharmacy if you need You should receive it before this medication now. you run out. DISCONTINUED: no changes ADDED/CHANGES: no changes NON-VA MEDICATIONS NOT LISTED ABOVE (List, including Herbals and OTC): Reviewed with patient/family members. Copy given to patient. Patient verbalized understanding? yes ===== ASSESSMENT/IMPRESSION: annual adult well exam -current Hypertension -stable Hyperlipidemia -stable COPD -stable A-fib -stable Back pain -stable Congestive heart failure -current Peripheral vascular disease -current PLAN OF CARE: Annual adult well exam reviewed last labs done in January has not been back to see us Hypertension plan to continue current medication Hyperlipidemia plan to continue taking his atorvastatin and watching what he eats. Currently sees safe and vault service mechanic COPD plan to continue current inhalers and follow-up as needed A-fib plan to continue amiodarone currently in normal sinus rhythm Chronic back pain plan to continue going to pain clinic Congestive heart failure plan to continue Lasix and potassium as needed, and seeing safe and vault service mechanic Peripheral vascular disease plan to continue to monitor, good pulses noted to feet the bilaterally good Follow-up: _12_ months and/or as needed and keep regularly scheduled appointment. Discussed diet and exercise as relevant to patient conditions. Patient is advised this primary care clinic has open access and he can make a same day appointment anytime a problem/concern arises. Patient further advised he can be seen on a walk-in basis as needed. Patient is provided clinic contact information. Treatment plan as noted above and the After Visit Summary was reviewed with ; opportunity provided to report concerns and ask question regarding aspects of care or treatment or services; concurrence reached and verbalized understanding. Discussed with patient that in the event of community imaging/testing being ordered in the future, once the imaging testing has been completed, please notify PACT of within 1 week by a [place] PACT member; this is due to intermittent lapses in notification of imaging completion within CPRS. All questions answered; agrees to plan of care. Follow up as listed above, annually, and as needed. Keep all completion at outside facility if not called with results appointments. Medications Reconciled. Time spent 30 minutes. [place] [facility] APR Float Follow-up Pos Alcohol - AT,M,N,P,PH,PS,R,S,T: Patient's AUDIT-C score was greater than or equal to 5; brief alcohol intervention is indicated. Shared concern that the patient may be drinking at unhealthy levels known to increase his/her risk of alcohol related health problems. Specifically the following were reviewed: High blood pressure, heart disease, liver disease, anxiety, bleeding from the stomach, dementia The patient was advised/informed to drink within safe limits, which are no more than 2 drinks per day on average and no more than 4 drinks on any one day AND no more than 14 drinks per week. Will discuss again at next visit. Assessment for alcohol use disorder (Based on DSM-5 criteria) completed by provider Liver Cancer (HCC) Surveillance - N,P,PH: Hepatocellular Carcinoma (HCC) Surveillance The [place] Association for the Study of Liver Diseases (AASLD) recommends surveillance for hepatocellular carcinoma (HCC) for all patients with cirrhosis and some patients with chronic hepatitis B. Patients who are at high risk for hepatocellular carcinoma (HCC) should undergo surveillance using ultrasound and alpha-fetoprotein (AFP) every 6 months. Ultrasound ordered- see orders. /minesh/ CHRISTIAN Mathews, MSN, Ozzie Chandler [facility] Signed: 03/22/2024 14:06 04/11/2024 ADDENDUM STATUS: COMPLETED I was notified today of MRI lumbar spine and MRI thoracic spine done 01/2024 the patient belongs to A different provider. Impression: Electronically generated report for outside study. So I am passing along the message just to make sure that those images were reviewed. /es/ GORDY LEE MD Signed: 04/11/2024 13:52 Receipt Acknowledged By: 04/11/2024 15:06 /minesh/ CHRISTIAN Mathews, MSN, [facility] ADDENDUM STATUS: COMPLETED Both of these MRIs were ordered by Dr. May and a consult /minesh/ CHRISTIAN Mathews, MSN, Ozzie Bañuelos [facility] Signed: 04/11/2024 15:05 [place] [facility] Mar 22, 2024 12:50 PM PRIMARY CARE NURSI BRETT NOTE: LOCAL TITLE: PRIMARY CARE NURSING PROGRESS NOTE (TEXT) NURSING P STANDARD TITLE: PRIMARY CARE NURSING NOTE DATE OF NOTE: MAR 22, 2024@12:50 ENTRY DATE: MAR 22, 2024@12:50:56 AUTHOR: GENARO ROBERTS EXP COSIGNER: URGENCY: STATUS: COMPLETED PRIMARY CARE NURSING PROGRESS NOTE (TEXT) NURSING PB Has ADDENDA Established Patient JESSE RICHEY IS A 83 YEAR OLD MALE BEING SEEN IN CLINIC MAR 22, 2024. = = REASON FOR VISIT: Annual visit, lab review. Shortness of breath with activity for greater than a year Are you receiving care any where other than the [place]? No Podiatry, Dermatology, orthopedic, cardiology, HEALTH AND SURGICAL HISTORY: Steriod shots in his heels Does patient report using home oxygen? No CURRENT ACTIVE MEDICATIONS FOR REVIEW: Allergies/ADRs (Tool #5) FACILITY ALLERGY/ADR -------- No Remote Allergy/ADR Data available for this patient [facility] No Known Allergies Med. Reconciliation (Tool #1) INCLUDED IN THIS LIST: Alphabetical list of active outpatient prescriptions dispensed from this [place] (local) and dispensed from another [place] or [facility] facility (remote) as well as inpatient orders (local pending and active), local clinic medications, locally documented non-VA medications, and local prescriptions that have or been discontinued in the past 90 days. Non-VA Meds Last Documented On: Jun 23, 2023 NOTE The display of VA prescriptions dispensed from another [place] or [facility] facility (remote) is limited to active outpatient prescription entries matched to National Drug File at the originating site and may not include some items such as investigational drugs, compounds, etc. NOT INCLUDED IN THIS LIST: Medications self-entered by the patient into personal health records (i.e. [employer]) are NOT included in this list. Non-VA medications documented outside this [place], remote inpatient orders (regardless of status) and remote clinic medications are NOT included in this list. The patient and provider must always discuss medications the patient is taking, regardless of where the medication was dispensed or obtained. OUTPT ACETAMINOPHEN 500MG TAB (Status = Active) TAKE ONE TABLET BY MOUTH FOUR TIMES A DAY NEEDED FOR PAIN CAUTION: DO NOT EXCEED 4000MG PER DAY ACETAMINOPHEN (APAP) FROM ALL MEDS. Rx# [id number] Last Released: 02/02/24 Qty/Days Supply: 400/90 Rx Expiration Date: 01/26/25 Refills Remainin Indication: FOR PAIN OUTPT ALBUTEROL 90MCG (CFC-F) 200D ORAL INHL (Status = Active) INHALE 2 PUFFS ORAL INHALATION FOUR TIMES A DAY FOR ASTHMA SHAKE WELL. RINSE MOUTHPIECE FREQUENTLY TO PREVENT CLOGGING. Rx# [id number] Last Released: 12/15/23 Qty/Days Supply: Rx Expiration Date: 12/12/24 Refills Remainin Indication: FOR ASTHMA OUTPT ALBUTEROL SO4 0.083% INHL 3ML (Status = Active) INHALE 1 VIAL (2.5MG/3ML) BY NEBULIZATION EVERY 6 HOURS DIRECTED FOR ASTHMA Rx# [id number] Last Released: 12/15/23 Qty/Days Supply: 120/ Rx Expiration Date: 12/12/24 Refills Remainin Indication: FOR ASTHMA Non-VA AMIODARONE HCL (PACERONE) 200MG TAB TAKE ONE TABLET BY MOUTH ONCE A DAY Patient wants to buy from Non-CA pharmacy Non-VA ATORVASTATIN CALCIUM 80MG TAB TAKE ONE-HALF TABLET BY MOUTH EVERY EVENING Patient wants to buy from Non-[place] pharmacy OUTPT CALCIUM 600MG/VITAMIN D 400UNIT TAB (Status = Active) TAKE 2 TABLETS BY MOUTH ONCE A DAY FOR CALCIUM SUPPLEMENTATION TAKE WITH FOOD Rx# [id number] Last Released: 02/02/24 Qty/Days Supply: 180/ Rx Expiration Date: 01/27/25 Refills Remainin Indication: FOR CALCIUM SUPPLEMENTATION OUTPT CETIRIZINE HCL 10MG TAB (Status = Active) TAKE ONE TABLET BY MOUTH ONCE A DAY NEEDED FOR ALLERGY SYMPTOMS Rx# [id number] Last Released: 12/13/23 Qty/Days Supply: 90/ Rx Expiration Date: 08/25/24 Refills Remainin Indication: FOR ALLERGY SYMPTOMS Non-VA CLOPIDOGREL BISULFATE 75MG TAB TAKE ONE TABLET BY MOUTH ONCE A DAY Patient wants to buy from Non-VA pharmacy Non-VA FERROUS SULFATE TAB TAKE 27MG BY MOUTH ONCE A DAY Patient wants to buy from Non-[place] pharmacy OUTPT FLUOROURACIL 5% CREAM (Status = Active) APPLY THIN AMOUNT TO ROUGH SCALY AREAS OF FACE. TO AFFECTED AREA(S) TWICE A DAY FOR 2 WEEKS AVOID SUN EXPOSURE. FOLLOW DIRECTIONS CAREFULLY FOR PROPER HANDLING/DISPOSAL. Rx# [id number] Last Released: 02/06/24 Qty/Days Supply: 40/30 Rx Expiration Date: 02/02/25 Refills Remainin OUTPT FLUTICASONE PROP 50MCG 120D NASAL INHL (Status = Active) INSTILL 2 SPRAYS IN NOSTRIL(S) ONCE A DAY NEEDED FOR RHINITIS (MUST BE USED DIRECTED FOR MINIMUM OF 21 DAYS TO PROVIDE ADEQUATE BENEFITS) Rx# [id number] Last Released: 12/15/23 Qty Supply: Rx Expiration Date: 08/25/24 Refills Remainin Indication: FOR RHINITIS Non-VA FOLIC ACID 1MG TAB TAKE ONE TABLET BY MOUTH ONCE A DAY Patient wants to buy from Non-VA pharmacy Non-VA FUROSEMIDE 40MG TAB TAKE ONE TABLET BY MOUTH TWICE A DAY NEEDED Patient wants to buy from Non-VA pharmacy OUTPT HYDROPHILIC (EQV EUCERIN) TOP CREAM (Status = Active) APPLY LIGHTLY TO AFFECTED AREA(S) TWICE DAILY NEEDED MOISTURIZER (EXTERNAL USE ONLY) Rx# [id number] Last Released: 08/30/23 Qty Supply: Rx Expiration Date: 08/26/24 Refills Remainin Indication: MOISTURIZER Non-VA IMIQUIMOD 5% TOP CREAM PKT 0.25GM APPLY SPARINGLY TO AFFECTED AREA(S) 5X/WEEK Medication prescribed by Non-[place] provider for 6 weeks. Indication: FOR ACTINIC KERATOSIS OUTPT LIDOCAINE 5% PATCH (Status = Active) APPLY 1 PATCH TO SKIN SITE ONCE A DAY FOR LOCAL ANESTHESIA APPLY PATCH AND PRESS FIRMLY FOR 10-15 SECONDS. KEEP ON FOR 12 HOURS THEN REMOVE PATCH FOR 12 HOURS. Rx# [id number] Last Released: 01/31/24 Qty Supply: Rx Expiration Date: 01/26/25 Refills Remainin Indication: FOR LOCAL ANESTHESIA Non-VA MAGNESIUM OXIDE 400MG TAB TAKE ONE TABLET BY MOUTH EVERY MORNING Patient wants to buy from Non-[place] pharmacy Non-VA METOLAZONE 2.5MG TAB TAKE ONE TABLET BY MOUTH ONCE A DAY NEEDED [facility] RX: Patient wants to buy from Non-[place] pharmacy OUTPT MONTELUKAST NA 10MG TAB (Status = Active) TAKE ONE TABLET BY MOUTH EVERY EVENING FOR ASTHMA Rx# [id number] Last Released: 12/15/23 Qty Supply: Rx Expiration Date: 12/12/24 Refills Remainin Indication: FOR ASTHMA Non-VA MULTIVITAMIN CAP/TAB TAKE ONE TABLET BY MOUTH ONCE A DAY Medication prescribed by Non-VA provider Non-VA POTASSIUM CL 20MEQ SA TAB (DISPERSIBLE) TAKE ONE TABLET BY MOUTH TWICE A DAY Patient wants to buy from Non-CA pharmacy Non-CA TAMSULOSIN HCL 0.4MG CAP TAKE 1 CAPSULE BY MOUTH EVERY EVENING Patient wants to buy from Non-CA pharmacy Non-VA TIOTROPIUM 18MCG INHL CAP 5 INHALE 1 CAPSULE BY ORAL INHALATION ONCE A DAY Patient wants to buy from Non-CA pharmacy SUPPLIES PHARMACY TERMS AND POSSIBLE PATIENT ACTIONS INPT = [place] inpatient order IV = [place] intravenous medication OUTPT = [place] outpatient prescription PHARMACY POSSIBLE PATIENT TERMS EXPLANATION ACTIONS -------- ---- ACTIVE A prescription that can be If you have refills, filled at the local [place] pharmacy. you may request a refill of this prescription from your [place] pharmacy. CLINIC A medication you received during If you have questions a visit to a [place] clinic or about this medication emergency department. contact your [place] healthcare team. DISCONTINUED A prescription your provider has Contact your [facility] stopped. It is no longer healthcare team if you available to be sent to you or need more of this picked up at the [place] pharmacy medication. window. A prescription which is too old Contact your VA to fill. This does not refer to healthcare team if you the expiration date of the need more of this medication in the container. medication. NON-VA A medication that came from If this medication someplace other than a VA information is pharmacy. This may be a incorrect or out of prescription from either the VA date, please tell your or non VA providers that was VA healthcare team. filled outside the VA. Or, it may be an isfe-dkk-riivrsl (OTC), herbal, dietary supplements or sample medication. ON HOLD An active prescription that will Contact your VA not be filled until pharmacy pharmacy when you need resolves the issue. more of this medication. PARKED An active prescription that will Contact your VA not be filled until the patient pharmacy when you need requests it. this medication. PENDING This prescription order has been If you have been sent to the pharmacy for review instructed to start and is not ready yet. this medication now, contact your VA pharmacy. SUSPENDED An active prescription that is Contact your VA not scheduled to be filled yet. pharmacy if you need You should receive it before this medication now. you run out. Patient reports taking medications as ordered. IS PATIENT TAKING ANY OVER THE COUNTER MEDICATIONS, SUCH VITAMINS OR HERBAL SUPPLEMENTS, INCLUDING ANY MEDICATIONS PRESCRIBED BY ANOTHER PHYSICIAN? Yes, List: ALLERGIES/ADVERSE REACTIONS: Patient has answered NKA Does patient have any new allergies to report since last visit? NO VITALS: TEMPERATURE: 97.1 F [36.2 C] (02/02/2024 12:38) BP: 113/66 (02/02/2024 12:38) RESP: 18 (02/02/2024 12:38) PULSE: 74 (02/02/2024 12:38) HT: 69 in [175.3 cm] (11/12/2022 10:41) WT: 158.4 lb [71.85 kg] (01/26/2024 13:48) BMI: 23.4 PAIN ASSESSMENT: (Most Recent Pain Score in Vitals Package: 2 (12/14/2023 10:36) ) The patient indicated that they and their close contacts have not traveled outside of the [place] in the past 21 days. The patient reports the following symptoms: No symptoms present The patient is not immunocompromised. The patient does not report having a history of Multi Drug Resistant Organism (MDRO) within the last five years. The patient does not report having been exposed to measles, chickenpox, or zoster in last 30 days. STRESS: Thank you for your service. Now let us serve you. At the [facility], we strive to provide you with exceptional health care that improves your health and well-being. Are you feeling sad, empty, or depressed? No Do you need to talk about things in your life that worry you or cause you stress? No Do you need to talk about personal problems, family problems, alcohol use, drug use, or mental or emotional illness? No SUICIDE SCREENING: The patient was asked, Over the past two weeks, how often have you been bothered by thoughts that you would be better off or of hurting yourself in some way? Not At All SPIRITUAL ASSESSMENT: Are there sikhism practices or spiritual concerns you want the rail switchman, your physician, and other health care team members to immediately know about? No Patient advised to call the clinic for any concerns, questions, or symptoms. Patient and/or caregiver verbalized understanding of plan of care. FALL RISK OP PB: MARCELLUS FALL RISK ASSESSMENT Have you experienced any falls within the last 12 months: 10 = Yes Secondary Dx: 5 = Yes Secondary Dx Ambulatory Aid: 5 = Crutches/Walker/Cane Gait/Transferrin = Weak Mental status: 0 = Oriented to own ability Medications: 5 = High risk meds TOTAL SCORE: 30 Score 30 or higher - patient IS at risk for falls. The following actions taken: Patient had safety/home/falls education at this encounter. Fall Documentation Yes - Patient experienced a fall within the last year. Type of fall that occurred: At least one fall with injury requiring treatment (any fall for which a patient seeks medical attention, i.e., a visit (usually to clinic or ED)) COVID-19 Immunization - L,N,P,PH,U: Refused Moderna Monovalent COVID-19 vaccine Immunization: COVID-19 (MODERNA), MRNA, LNP-S, PF, 50 MCG/0.5 ML (AGES 12+ YEARS) Refusal Reason: PATIENT DECISION Patient refuses all immunization(s) in the COVID-19 group Date Documented: 03/22/24 13:03 Alcohol Use Screen (AUDIT-C) - V: Alcohol Screen: SCREEN FOR ALCOHOL (AUDIT-C) An alcohol screening test (AUDIT-C) was positive (score=5). 1. How often did you have a drink containing alcohol in the past year? Consider a drink to be a 12 ounce can or bottle of regular beer, 8 ounces of malt liquor, a 5 ounce glass of table wine, or a 1.5 ounce shot of liquor (like scotch, gin, or vodka). Four or more times a week 2. How many drinks containing alcohol did you have on a typical day when you were drinking in the past year? Three or four drinks 3. How often did you have six or more drinks on one occasion in the past year? Never Licensed Independent Provider notified of positive screen and need for follow-up. Name of provider notified: [facility] Tobacco Use Screening - AT,DE,L,M,N,P,PH,PS,S: The patient uses tobacco every day. The patient does not use tobacco within 30 minutes of waking up. The patient has been smoking or using tobacco for thirty years or more. Patient was advised to quit smoking and/or using tobacco. Discussion with patient included: - Quitting smoking or tobacco use is one of the most important things you can do to protect and improve your health and [place] has the resources to support you. - Set a quit date when you are ready to quit. - Get support from your family and friends. - Review any past quit attempts- What helped? What didn't? - On the day you plan to quit, get rid of all cigarettes and tobacco products from your home, car or work. - Using a combination of behavioral counseling or other support strategies and FDA-approved cessation medications is the most effective way to ensure success in quitting. Patient was offered Behavioral Counseling and other support strategies to assist with quitting. Discussion with patient included: - Behavioral counseling or other support strategies greatly increases your chances of successfully quitting smoking or tobacco use by helping you develop a quit plan and providing support and other strategies to make behavioral changes to help you quit. - [place] has a number of behavioral counseling options to help you with quitting, including: * Provide information about the facility smoking or tobacco use treatment options or clinics * [place]'s national quitline, 7-803-XJWG-VET, with counseling available Tuesday-Tuesday The patient was not interested in receiving additional information about how to use the treatment options discussed. Patient was offered FDA-approved cessation medications. Discussion with patient included: - Medications for Nicotine replacement therapy such as the patch, gum or lozenge, and other medications such as varenicline or bupropion, can play an important role in the initial weeks and months after you quit smoking or tobacco use. - Medications help with cravings and withdrawal symptoms and they greatly increase your chances of successfully quitting. The patient was not interested in a prescription for tobacco cessation medications. Homelessness/Food Insecurity Screen - DI,L,N,P,PH,PS,S,U: In the past 2 months, have you been living in stable housing that you own, rent, or stay in as part of a household? Yes - Living in stable housing. Are you worried or concerned that in the next 2 months you may NOT have stable housing that you own, rent, or stay in as part of a household? No - Not worried about housing near future The reports the following: Within the past 12 months, you worried whether your food would run out before you got money to buy more. Never true Within the past 12 months, the food you bought just didn't last and you didn't have money to get more. Never true Pain Assessment: - PAIN ASSESSMENT: .. This patient's last pain assessment score was: 2 (12/14/2023 10:36). A detailed pain assessment showed the following: Pain characteristics (per patient's own words) Sharp Location of current pain Other bilateral heels Onset/Duration of the current pain. Constant or variable? Less than 1 month Patient's self identified pain goal: 0 PAVE Foot Check - L,N,P,PH,PO,PT,U: Patient declined limb care exam. Comment: Seeley seen podiatry 03/21/2024 The patient was advised the [place] mandates all patients with diabetes mellitus, end stage renal disease, peripheral vascular disease, or sensory neuropathy should have a complete foot check completed annually. This includes a visual exam of the skin, pedal pulses and a sensory exam. Patients with any abnormality noted during the foot check should be referred to a specialist. Frail/Elderly Screen: Falls Screen: At least one fall with injury requiring treatment (in ED or clinic visit) within the last 12 months. RHS Screen - VS: RHS Screen Session Format: Face to Face Environmental Check Screening was not completed at this time due to: Other: Seeley lives alone /minesh/ MARJORIE Quinn [facility] Signed: 03/22/2024 13:08 03/22/2024 ADDENDUM STATUS: COMPLETED Weight Control/Nutrition Counseling: * The patient received the following counseling at this encounter: Patient was encouraged to restrict fat, especially saturated fats, in a normal diet. Benefit of a diet high in fiber was discussed. Patient was advised to include 5 or more servings of fruit and vegetables and six or more servings of grains as a well balanced diet. Patient/Nurse Interview: * * Patient stated that adequate information was received regarding the condition and/or treatment. Hepatitis B Immunization - L,N,P,PH,U: The patient declines to receive the recommended dose of Hepatitis B vaccine. Immunization: HEP B, UNSPECIFIED FORMULATION Refusal Reason: PATIENT DECISION Patient refuses all immunization(s) in the HepB group Date Documented: 03/22/24 13:23 Per [facility] Directive 1605.06, wristband documentation: Patient wristband was removed and destroyed by (staff name) Genaro Roberts and placed in the designated [place] [employer] bin. /minesh[facility]: 03/22/2024 13:26 GENARO ROBERTS [facility]
--- OUTSIDE RECORDS SUMMARY | 2024-03-22 09:56 | XMS_ITS | Encounter Summary ---
Author Name [facility] Address [address] [place] [address] Care Team Providers Care Production Expediter Name Role Phone RICKEY AMBRIZ Primary Care Provider Unavailabl e Insurance Providers: [...] Patient's Relationship to Policy Harrison URSZULA ACOSTA [place] MCR ([place]NR) MEDICARE ADVANTAGE [facility] (WNR) Oct 28, 2022 [id number] Kaye PELAEZ PATIENT MEDICARE (WNR) MEDICARE (M) PART A Apr 29, 2007 PART A [id number] [phone] Kaye PELAEZ PATIENT MEDICARE (WNR) MEDICARE (M) PART B Apr 29, 2007 PART B [id number] [phone] Kaye PELAEZ PATIENT Selected Encounter This section includes the information on record at [place] for the Encounter. Date/Time Encounter Type Encounter Description Reason Provider Source Mar 22, 2024 02:56 PM Outpatient Encounter ADMIN PAT ACTIVTIES (MASNONCT) HOWIE DUMONT Encounter Template Text not used by [place] Plan of Treatment: Future Appointments (+ 6 months) and Future Tests (+/- 45 days) The Plan of Treatment section includes future care activities for the patient from all VA treatmentfacilities. This section includes future appointments and future orders which are active, pending or scheduled. Future Appointments This section includes appointments that were scheduled to occur 6 months from the date of the Encounter, up to a maximum of 20 appointments. The data comes from all [place] treatment [facility]. Appointment Date/Time Appointment Type Appointme nt Facility Name Apr 16, 2024 08:45 AM AMBULATORY - MEDICINE [facility] [facility] May 10, 2024 02:00 PM AMBULATORY - MEDICINE [facility] May 17, 2024 07:45 AM AMBULATORY - MEDICINE [place] May 31, 2024 09:40 AM AMBULATORY - SURGERY [facility] [facility] Jun 04, 2024 10:00 AM AMBULATORY - MEDICINE [place] Jun 13, 2024 02:30 PM AMBULATORY - MEDICINE [place] Jul 02, 2024 09:30 AM AMBULATORY - MEDICINE [facility] Jul 04, 2024 03:00 PM AMBULATORY - MEDICINE [place] [facility] Jul 09, 2024 10:15 AM AMBULATORY - MEDICINE [facility] Jul 12, 2024 08:00 AM AMBULATORY - MEDICINE [place] Jul 13, 2024 03:18 PM AMBULATORY - MEDICINE [place] Jul 30, 2024 02:30 PM AMBULATORY - MEDICINE [place] Aug 09, 2024 10:15 AM AMBULATORY - MEDICINE [facility] Aug 09, 2024 12:00 PM AMBULATORY - MEDICINE [facility] Aug 27, 2024 01:34 PM AMBULATORY - NONE [facility] Aug 31, 2024 08:00 AM AMBULATORY - MEDICINE [place] Sep 14, 2024 10:45 AM AMBULATORY - MEDICINE [facility] Vital Signs: All taken on the encounter date This section contains inpatient and outpatient Vital Signs collected on the date of the Encounter. Date/Time Temperature Pulse Blood Pressure Respiratory Rate SP02 Pain Height Weight Body Mass Index Source Mar 22, 2024 01:10 PM 97.6 76 122/72 97 [facility] Social History: Smoking Status (Most current) and Tobacco Use (All prior to encounter date) This section includes the most current, and the historical, smoking and tobacco- related health factors from the [place] facility where the Encounter took place. Current Smoking Status This section includes the most current smoking, or tobacco-related health factor, from the [place] facility where the Encounter took place. Date/Time Current Smoking Status Comment Facil ity Mar 22, 2024 11:30 AM VA-TOBACCO USER EVERY DAY [facility] Tobacco Use History This section includes a history of the smoking, or tobacco-related health factors, that were collected on or before the date of the Encounter. The data comes from the [place] facility where the Encounter took place. Date/Time Smoking Status/Tobacco Use Comment F acility Mar 22, 2024 11:30 AM VA-TOBACCO USE 30 YEARS OR MORE [facility] Mar 22, 2024 11:30 AM VA-TOBACCO USE ADVICE [facility] Mar 22, 2024 11:30 AM VA-TOBACCO USE SCREEN PRINTER NO [facility] Mar 22, 2024 11:30 AM VA-TOBACCO USE MED NO [facility] Mar 22, 2024 11:30 AM VA-TOBACCO USER EVERY DAY [facility] Dec 21, 2021 08:30 AM VA-TOBACCO FORMER USER [facility] Dec 21, 2021 08:30 AM VA-TOBACCO QUIT 5 TO < 15 YRS [facility] Dec 22, 2020 08:30 AM VA-TOBACCO DOESNT USE WI 30 MIN WAKEUP [facility] Dec 22, 2020 08:30 AM VA-TOBACCO USE 30 YEARS OR MORE [facility] Dec 22, 2020 08:30 AM VA-TOBACCO USE ADVICE [facility] Dec 22, 2020 08:30 AM VA-TOBACCO USE SCREEN PRINTER NO [facility] Dec 22, 2020 08:30 AM VA-TOBACCO USE MED NO [facility] Dec 22, 2020 08:30 AM VA-TOBACCO USER EVERY DAY [facility] Dec 11, 2018 10:05 AM VA-TOBACCO FORMER USER [facility] Dec 11, 2018 10:05 AM VA-TOBACCO QUIT < 1 YEAR [facility] Aug 12, 2017 04:20 PM CURRENT TOBACCO USER [facility] Aug 12, 2017 04:20 PM CURRENT TOBACCO US ER (NOT READY TO QUIT) [facility] Aug 12, 2017 04:20 PM SMOKELESS TOBACCO AMOUNT/LENGTH V15 60yr [facility] Aug 12, 2017 04:20 PM TOBACCO CESSATION REFERRAL DECLINED [facility] Aug 12, 2017 04:20 PM TOBACCO MEDS OFFER ED BUT DECLINED [facility] Aug 12, 2017 04:20 PM TOBACCO USER OFFERED MEDS [facility] Mar 20, 2015 08:26 AM CURRENT TOBACCO USER [facility] Mar 20, 2015 08:[address] [facility]MO[facility] Jan 14, 2014 11:24 AM CURRENT TOBACCO USER [facility] Jan 14, 2014 11:[address] [facility] Nov 02, 2012 10:28 AM CURRENT TOBACCO USER [facility] Nov 02, 2012 10:[address] [facility] Mar 20, 2012 01:50 PM TOBACCO MEDS OFFER ED BUT DECLINED [facility] Mar 20, 2012 01:50 PM TOBACCO OFFERED PT MEDS (PROVIDER) [facility] Mar 20, 2012 01:[address] [facility] Nov 29, 2011 03:13 PM CURRENT TOBACCO USER [facility] Nov 29, 2011 03:13 PM TOBACCO MEDS OFFER ED BUT DECLINED [facility] Nov 29, 2011 03:13 PM TOBACCO OFFERED PT MEDS (PROVIDER) [facility] Nov 29, 2011 03:[address] [facility] Sep 25, 2010 08:23 AM CURRENT TOBACCO USER [facility] Sep 25, 2010 08:23 AM LIFETIME NON-USER OF TOBACCO [facility] Sep 25, 2010 08:[address] [facility] Sep 08, 2009 02:45 PM QUIT TOBACCO >12 M O & <7 YRS AGO [facility] Nov 11, 2008 01:14 PM TOBACCO MEDS OFFER ED BUT DECLINED [facility] Nov 11, 2008 01:[address] OP SMOKING CLINIC do not want [facility] May 12, 2007 09:17 AM CURRENT TOBACCO USER [facility] May 12, 2007 09:[address] [facility]MOKING [facility] do not want to quit smoking [facility] Nov 28, 2006 01:36 PM CURRENT TOBACCO USER [facility] Nov 28, 2006 01:36 PM TOBACCO MEDS OFFER ED BUT DECLINED [facility] Jul 28, 2006 08:56 AM CURRENT TOBACCO USER [facility] Advance Directives: All historical and current Section Date Range: From patient's date of to the date document was created. This section includes ALL of a patient's completed or amended [place] Advance and Rescinded Directives. The entries below indicate that a directive exists for the patient, but an actual copy is not included with this document. The data comes from all [place] facilities. Date Advance Directives Provider Source Nov 24, 2016 ADVANCE DIRECTIVE SHAYNA SHEN GUADALUPE FF [facility] May 21, 2011 ADVANCE DIRECTIVE DISCUSSION ADAM [facility] 2011 ADVANCE DIRECTIVE DISCUSSION AD[facility] May 07, 2011 ADVANCE DIRECTIVE DISCUSSION AD[facility] Radiology Reports: +/- 30 days of [...] the Encounter. The data comes from all [place] treatment facilities. Date/Time Radiology Report Provider Source Feb 24, 2024 02:48 PM MRI SPINE THORACIC W/O CONT: REGINALD PELAEZ [facility] [id number] -1940 M Exm Date: FEB 24, 2024@14:48 Req Phys: GORDY LEE Loc: OUTSIDE PB-MRI (Req'g Loc) Img Loc: OUTSIDE PB-MRI Service: Unknown (Case [id number] COMPLETE) MRI SPINE THORACIC W/O CONT (MRI Detailed) CPT:72782 Reason for Study: Exam imported from outside Clinical History: Original Data for Imported Study Patient Name: REGINALD PELAEZ Date: 1940 Sex: M Study Date: 02/24/24 Study Time: 02:48:26 Study Description: MR thoracic spin wo con* [id number] Referring Physician: UNKNOWN, UNKNOWN Series 1: 1 OK file, description: FUJI Presentation State - ANNOTATIONS Series 2: 2 OK files, description: FUJI Presentation State - SNAPSHOT [...] BY: / *ELECTRONICALLY FILED* [facility] Feb 21, 2024 03:04 PM MRI SPINE LUMBAR W /O CONT: REGINALD PELAEZ [facility] [id number] -1940 M Exm Date: FEB 21, 2024@15:04 Req Phys: GORDY LEE Pat Loc: OUTSIDE PB-MRI (Req'g Loc) Img Loc: OUTSIDE PB-MRI Service: Unknown (Case [id number] COMPLETE) MRI SPINE LUMBAR W/O CONT (MRI Detailed) CPT:56231 Reason for Study: Exam imported from outside Clinical History: Original Data for Imported Study Patient Name: REGINALD PELAEZ Date: 1940 Sex: M Study Date: 02/21/24 Study Time: 03:04:49 Study Description: MR lumbar spine wo con* [id number] Referring Physician: UNKNOWN, UNKNOWN Series 1: 1 OK file, description: FUJI Presentation State - ANNOTATIONS Series 2: 1 OK file, description: FUJI Presentation State - SNAPSHOT [...] outside study. VERIFIED BY: / *ELECTRONICALLY FILED* ILIA JOSE HERNÁNDEZ [facility] Encounter Notes: All associated encounter notes This section contains the clinical notes associated to the Encounter. Date/Time Encounter Note(s) Provider Source Mar 22, 2024 02:56 PM LETTERS: LOCAL TITLE: TELE-EYE RESULTS LETTER STANDARD TITLE: LETTERS DATE OF NOTE: MAR 22, 2024@14:56 ENTRY DATE: MAR 22, 2024@14:57:01 AUTHOR: HOWIE DUMONT EXP COSIGNER: URGENCY: STATUS: COMPLETED MAR 22, 2024 REGINALD PELAEZ [id number] [place], [place] [address] Dear Reginald Pelaez: You are receiving this letter in regard to your recent [facility] EYE SCREENING. The purpose of the screening is to detect specific vision-threatening conditions such as diabetic retinopathy (if you are diabetic), macular degeneration, and glaucoma. Early detection of eye disease can be important to reduce the risk of permanent vision loss. Your information and testing was reviewed by a licensed [place] eye care provider. The date of review and findings are noted below: Screening Exam Findings 03/22/2024 Macular results were not able to be determined Glaucoma/Optic Nerve results were not able to be determined Other findings/results were not able to be determined Recommendations: 03/22/2024 Return to [facility] 6 MONTHS *Please note that incidental findings outside the primary focus of this screening may be noted within the detailed report of the visit. This report can be accessed online through [employer] ([email or web address]) or requested through your [place] Medical Records/Release of Information office. If you have been seen by a non-VA eye care provider, please bring your records to your next VA appointment to be scanned into your medical record. If you are a tobacco user, VA provides tobacco cessation services which can reduce the risk of eye disease as well as risks to your overall health. Please discuss with your VA Primary Care team for more information. Thank you for allowing us to serve you. [place] Healthcare Team Digital retinal imaging has been shown to be an effective method of screening for specific eye conditions, but cannot substitute for a comprehensive eye exam. Comprehensive eye exams are recommended every 1-2 years, or more frequently as determined by the presence of risk factors, early signs or symptoms, or known history of eye disease. HOWIE DUMONT [facility]
--- OUTSIDE RECORDS SUMMARY | 2024-07-09 05:15 | XMS_ITS | Encounter Summary ---
Author Name [facility] [place] [place] Organization [facility] [place] Address [address] [place] [id number] Care Team Providers Care Taper Machine Name Role Phone RICKEY AMBRIZ Primary Care [...] Patient's Relationship to Policy Harrison URSZULA ACOSTA [facility] (WNR) MEDICARE ADVANTAGE [facility] (WNR) Oct 28, 2022 [id number] [phone] Kaye RICHEY PATIENT MEDICARE (WNR) MEDICARE (M) PART B Apr 29, 2007 PART B [id number] Kaye RICHEY PATIENT MEDICARE (WNR) MEDICARE (M) PART A Apr 29, 2007 PART A [id number] [phone] Kaye RICHEY PATIENT Selected Encounter This section includes the information on record at [place] for the Encounter. Date/Time Encounter Type Encounter Description Reason Pro vider Source Jul 09, 2024 10:15 AM Outpatient Encounter PRIMARY CARE/MEDICINE IHE Encounter Template Text not used by [place] Plan of Treatment: Future Appointments (+ 6 [...] 20 appointments. The data comes from all [facility]. Appointment Date/Time Appointment Type Appointme nt Facility Name Jul 12, 2024 08:00 AM AMBULATORY - MEDICINE [place] Jul 13, 2024 03:18 PM AMBULATORY - MEDICINE [place] Jul 30, 2024 02:30 PM AMBULATORY - MEDICINE [place] Aug 09, 2024 10:15 AM AMBULATORY - MEDICINE [facility] Aug 09, 2024 12:00 PM AMBULATORY - MEDICINE [facility] Aug 27, 2024 01:34 PM AMBULATORY - NONE [place] B LUFF [facility] Aug 31, 2024 08:00 AM AMBULATORY - MEDICINE [place] [facility] Sep 14, 2024 10:45 AM AMBULATORY - MEDICINE [facility] Active, Pending, and Scheduled Orders This section includes a listing of several types of active, pending, and scheduled orders, including clinic medications orders, diagnostic test orders, procedure orders and consult orders; where the start date of the order is 45 days before the date of the Encounter or 45 days after the date of theEncounter. The data comes from all [facility]. 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 Date/Time Temperature Pulse Blood Pressure Respiratory Rate SP02 Pain Height Weight Body Mass Index Source Jul 09, 2024 11:54 AM 88 137/53 84 [facility] Social History: Smoking Status (Most current) and Tobacco Use (All prior to encounter date) This section includes the most current, and the historical, smoking and tobacco- related health factors from the [place] facility where the Encounter took place. Current Smoking Status This section includes the most current smoking, or tobacco-related health factor, from the [place] facility where the Encounter took place. Date/Time Current Smoking Status Comment Cheyenne gardnery Mar 22, 2024 11:30 AM VA-TOBACCO USER EVERY DAY [facility] Tobacco Use History This section includes a history of the smoking, or tobacco-related health factors, that were collected on or before the date of the Encounter. The data comes from the [place] facility where the Encounter took place. 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 [facility] Mar 22, 2024 11:30 AM VA-TOBACCO USE MED NO [facility] Mar 22, 2024 11:30 AM VA-TOBACCO USER EVERY DAY [facility] Dec 21, 2021 08:30 AM VA-TOBACCO FORMER USER [facility] Dec 21, 2021 08:30 AM VA-TOBACCO QUIT 5 TO < 15 YRS [facility] Dec 22, 2020 08:30 AM VA-TOBACCO DOESNT USE WI 30 MIN [facility] [place] [facility] Dec 22, 2020 08:30 AM VA-TOBACCO USE 30 YEARS OR MORE [facility] Dec 22, 2020 08:30 AM VA-TOBACCO USE ADVICE [place] [facility] Dec 22, 2020 08:30 AM 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 [facility] Dec 22, 2020 08:30 AM VA-TOBACCO USE MED NO [place] [facility] Dec 22, 2020 08:30 AM VA-TOBACCO USER EVERY DAY [facility] Dec 11, 2018 10:05 AM VA-TOBACCO FORMER USER [place] [facility] Dec 11, 2018 10:05 AM VA-TOBACCO QUIT < 1 YEAR [facility] Aug 12, 2017 04:20 PM CURRENT TOBACCO USER [facility] Aug 12, 2017 04:20 PM CURRENT TOBACCO US ER (NOT READY TO QUIT) [facility] Aug 12, 2017 04:20 PM SMOKELESS TOBACCO AMOUNT/LENGTH V15 60yr [facility] Aug 12, 2017 04:20 PM TOBACCO CESSATION REFERRAL DECLINED [facility] Aug 12, 2017 04:20 PM TOBACCO MEDS OFFER ED BUT DECLINED [facility] Aug 12, 2017 04:20 PM TOBACCO USER OFFERED MEDS [facility] Mar 20, 2015 08:26 AM CURRENT TOBACCO USER [place] [facility] Mar 20, 2015 08:[address] OP SMOKING CLINIC [facility] Jan 14, 2014 11:24 AM CURRENT TOBACCO USER [facility] Jan 14, 2014 11:[address] OP SMOKING [facility]IC [facility] Nov 02, 2012 10:28 AM CURRENT TOBACCO USER [place] [facility] Nov 02, 2012 10:[address] [facility]MO[facility] [place] [facility] Mar 20, 2012 01:50 PM TOBACCO MEDS OFFER ED BUT DECLINED [facility] Mar 20, 2012 01:50 PM TOBACCO OFFERED PT MEDS (PROVIDER) [facility] Mar 20, 2012 01:[address] [facility] [place] [facility] Nov 29, 2011 03:13 PM CURRENT TOBACCO USER [facility] Nov 29, 2011 03:13 PM TOBACCO MEDS OFFER ED BUT DECLINED [facility] Nov 29, 2011 03:13 PM TOBACCO OFFERED PT MEDS (PROVIDER) [place] [facility] Nov 29, 2011 03:[address] [facility] [place] [facility] Sep 25, 2010 08:23 AM CURRENT TOBACCO USER [facility] Sep 25, 2010 08:23 AM LIFETIME NON-USER OF TOBACCO [place] [facility] Sep 25, 2010 08:[address] OP SMOKING CLINIC [facility] Sep 08, 2009 02:45 PM QUIT TOBACCO >12 M O & <7 YRS AGO [facility] Nov 11, 2008 01:14 PM TOBACCO MEDS OFFER ED BUT DECLINED [facility] Nov 11, 2008 01:[address] OP SMOKING CLINIC do not want [facility] May 12, 2007 09:17 AM CURRENT TOBACCO USER [facility] May 12, 2007 09:[address] OP [facility]MO[facility]IN[facility] do not want to quit smoking [facility] Nov 28, 2006 01:36 PM CURRENT TOBACCO USER [facility] Nov 28, 2006 01:36 PM TOBACCO MEDS OFFER ED BUT DECLINED [facility] Jul 28, 2006 08:56 AM CURRENT TOBACCO USER [facility] Advance Directives: All historical and current Section Date Range: From patient's date of to the date document was created. This section includes ALL of a patient's completed or amended [place] Advance and Rescinded Directives. The entries below indicate that a directive exists for the patient, but an actual copy is not included with this document. The data comes from all [place] facilities. Date Advance Directives Provider Source Nov 24, 2016 ADVANCE DIRECTIVE SHAYNA SHEN FF [facility] May 21, 2011 ADVANCE DIRECTIVE DISCUSSION ADAM SEYMOUR [facility] 2011 ADVANCE DIRECTIVE DISCUSSION ADAM SEYMOUR [facility] May 07, 2011 ADVANCE DIRECTIVE DISCUSSION ADAM SEYMOUR [facility]
--- OUTSIDE RECORDS SUMMARY | 2024-07-10 04:42 | XMS_ITS | Encounter Summary ---
Author Name [facility] [place] Organization [facility] [place] Address [address] [place] [address] Care Team Providers Care Irrigation Pump Installer Name Role Phone RICKEY AMBRIZ Primary Care [...] Patient's Relationship to Policy Harrison URSZULA ACOSTA [facility] (WNR) MEDICARE ADVANTAGE [facility] (WNR) Oct 28, 2022 [id number] [phone] Kaye RICHEY PATIENT MEDICARE (WNR) MEDICARE (M) PART A Apr 29, 2007 PART A [id number] Kaye RICHEY PATIENT MEDICARE (WNR) MEDICARE (M) PART B Apr 29, 2007 PART B [id number] [phone] Kaye RICHEY PATIENT Selected Encounter This section includes the information on record at [place] for the Encounter. Date/Time Encounter Type Encounter Description Reason Pro vider Source Jul 10, 2024 09:42 AM Outpatient Encounter ADMIN PAT ACTIVTIES (MASNONCT) IHE Encounter Template Text not used by [place] Plan of Treatment: Future Appointments (+ 6 [...] 20 appointments. The data comes from all [facility]. Appointment Date/Time Appointment Type Appointme nt Facility Name Jul 12, 2024 08:00 AM AMBULATORY - MEDICINE [place] Jul 13, 2024 03:18 PM AMBULATORY - MEDICINE [place] [facility] Jul 30, 2024 02:30 PM AMBULATORY - MEDICINE [place] [facility] Aug 09, 2024 10:15 AM AMBULATORY - MEDICINE [facility] Aug 09, 2024 12:00 PM AMBULATORY - MEDICINE [facility] Aug 27, 2024 01:34 PM AMBULATORY - NONE [place] B LUFF [facility] Aug 31, 2024 08:00 AM AMBULATORY - MEDICINE [facility] Sep 14, 2024 10:45 AM AMBULATORY - MEDICINE [facility] Active, Pending, and Scheduled Orders This section includes a listing of several types of active, pending, and scheduled orders, including clinic medications orders, diagnostic test orders, procedure orders and consult orders; where the start date of the order is 45 days before the date of the Encounter or 45 days after the date of theEncounter. The data comes from all [facility]. Test Date/Time Test Type Test Details Facility Name Aug 01, 2024 07:54 AM Consult Order [facility] 657A4 Cons Form Worker's Choice [facility] Social History: Smoking Status (Most current) and Tobacco Use (All prior to encounter date) This section includes the most current, and the historical, smoking and tobacco- related health factors from the [place] facility where the Encounter took place. Current Smoking Status This section includes the most current smoking, or tobacco-related health factor, from the [place] facility where the Encounter took place. Date/Time Current Smoking Status Comment Cehyenne godoy Aug 22, 2006 01:32 PM CURRENT TOBACCO USER [facility] Tobacco Use History This section includes a history of the smoking, or tobacco-related health factors, that were collected on or before the date of the Encounter. The data comes from the [place] facility where the Encounter took place. Date/Time Smoking Status/Tobacco Use Comment F acility Apr 14, 2006 01:08 PM CURRENT TOBACCO USER [facility] Advance Directives: All historical and current Section Date Range: From patient's date of to the date document was created. This section includes ALL of a patient's completed or amended [place] Advance and Rescinded Directives. The entries below indicate that a directive exists for the patient, but an actual copy is not included with this document. The data comes from all [place] facilities. Date Advance Directives Provider Source Nov 24, 2016 ADVANCE DIRECTIVE SHAYNA SHEN ILIA GUADALUPE FF [facility] May 21, 2011 ADVANCE DIRECTIVE DISCUSSION ADAM SEYMOUR [facility] 2011 ADVANCE DIRECTIVE DISCUSSION ADAM [facility]OUR [facility] May 07, 2011 ADVANCE DIRECTIVE DISCUSSION ADAM [facility]OUR [facility] Radiology Reports: +/- 30 days of [...] the Encounter. The data comes from all [place] treatment facilities. Date/Time Radiology Report Provider Source Aug 09, 2024 11:11 AM CHEST X-RAY, 2 VIE WS: JESSE RICHEY [facility] [id number] -1940 [facility] Date: AUG 09, 2024@11:11 Req Phys: RICKEY AMBRIZ Pat Loc: PB-JULIUS PACT MEDRANO CALIN (Req'g L Img Loc: PB-XRAY [place] Service: [place] [address] (Case [id number] COMPLETE) CHEST X-RAY, 2 VIEWS (RAD Detailed) CPT:07252 Reason for Study: repeat cxr Clinical History: surgerical clearance Report Status: Verified Date Reported: AUG 09, 2024 Date Verified: AUG 09, 2024 Habitat Biologist E-Sig: Report: PA and lateral views of the chest reveal moderate degenerative skeletal change, 1 partial compression of multiple thoracic vertebral bodies, 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 There is no infiltrate or effusion. Heart size is normal. Impression: 1. Chronic findings as noted 2. No acute process Primary Interpreting Staff: BRENNAN MCKEON, RADIOLOGIST (Habitat Biologist, no e-sig) /BRENNAN Boudreaux [facility] BEACH[facility]urvinder [facility] Encounter Notes: All associated encounter notes This section contains the clinical notes associated to the Encounter. Date/Time Encounter Note(s) Provider Source Jul 10, 2024 09:43 AM ADMINISTRATIVE NOT E: LOCAL TITLE: CCC: SCHEDULING ADMINISTRATION STANDARD TITLE: ADMINISTRATIVE NOTE DATE OF NOTE: JUL 10, 2024@09:43 ENTRY DATE: JUL 10, 2024@09:43:03 AUTHOR: ERNA CARDENAS EXP COSIGNER: URGENCY: STATUS: COMPLETED Transferred Annette Su RN with [facility] [phone] to [facility]. Released call to voicemail. /minesh/ ERNA CARDENAS Advanced Review Rn Signed: 07/10/2024 09:43 ERNA CARDENAS [facility]
--- OUTSIDE RECORDS SUMMARY | 2024-08-09 05:15 | XMS_ITS | Encounter Summary ---
Author Name [facility] [place] Organization [facility] [place] [facility] [place] Address [address] [place] [id number] Care Team Providers Care Sanitation Lead Name Role Phone RICKEY AMBRIZ Primary Care [...] Patient's Relationship to Policy Harrison URSZULA ACOSTA [facility] (WNR) MEDICARE ADVANTAGE [facility] (WNR) Oct 28, 2022 [id number] [phone] Kaye RICHEY PATIENT MEDICARE (WNR) MEDICARE (M) PART A Apr 29, 2007 PART A [id number] Kaye RICHEY PATIENT MEDICARE (WNR) MEDICARE (M) PART B Apr 29, 2007 PART B [id number] [phone] Kaye RICHEY PATIENT Selected Encounter This section includes the information on record at [place] for the Encounter. Date/Time Encounter Type Encounter Description Reason Provider Source Aug 09, 2024 10:15 AM NURSING ASSESSMENT/EVAL [facility] PRIMARY CARE/MEDICINE ICD-10-CM Z02.89 Encounter for other administrative examinations MARY GRACE ROBERTS Encounter Template Text not used by [place] Assessments - Encounter Diagnoses This section includes the primary and secondary diagnoses documented for the Encounter. Date/Time Primary/Secondary Diagnosis Diagnosis Name Provider Source Aug 17, 2024 09:01 AM PRIMARY Encounter for other administrative examinations [facility] Plan of Treatment: Future Appointments (+ 6 months) and Future Tests (+/- 45 days) The Plan of Treatment section includes future care activities for the patient from all [place] [facility] This section includes future appointments and future orders which are active, pending or scheduled. Future Appointments This section includes appointments that were scheduled to occur 6 months from the date of the Encounter, up to a maximum of 20 appointments. The data comes from all [facility]. Appointment Date/Time Appointment Type Appointme nt Facility Name Aug 27, 2024 01:34 PM AMBULATORY - NONE [facility] Aug 31, 2024 08:00 AM AMBULATORY - MEDICINE [facility] Sep 14, 2024 10:45 AM AMBULATORY - MEDICINE [facility] Active, Pending, and Scheduled Orders This section includes a listing of several types of active, pending, and scheduled orders, including clinic medications orders, diagnostic test orders, procedure orders and consult orders; where the start date of the order is 45 days before the date of the Encounter or 45 days after the date of theEncounter. The data comes from all [facility]. Test Date/Time Test Type Test Details Facility Name Aug 01, 2024 07:54 AM Consult Order [facility] [id number] [employer]orer[employer] [facility] Social History: Smoking Status (Most current) and Tobacco Use (All prior to encounter date) This section includes the most current, and the historical, smoking and tobacco- related health factors from the [place] facility where the Encounter took place. Current Smoking Status This section includes the most current smoking, or tobacco-related health factor, from the [place] facility where the Encounter took place. Date/Time Current Smoking Status Comment Facil ity Mar 22, 2024 11:30 AM VA-TOBACCO USER EVERY DAY [facility] Tobacco Use History This section includes a history of the smoking, or tobacco-related health factors, that were collected on or before the date of the Encounter. The data comes from the [place] facility where the Encounter took place. 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 [facility] [place] [facility] Mar 22, 2024 11:30 AM VA-TOBACCO USE MED NO [facility] Mar 22, 2024 11:30 AM VA-TOBACCO USER EVERY DAY [facility] Dec 21, 2021 08:30 AM VA-TOBACCO FORMER USER [facility] Dec 21, 2021 08:30 AM VA-TOBACCO QUIT 5 TO < 15 YRS [facility] Dec 22, 2020 08:30 AM VA-TOBACCO DOESNT USE WI 30 MIN WAKEUP [facility] Dec 22, 2020 08:30 AM VA-TOBACCO USE 30 YEARS OR MORE [facility] Dec 22, 2020 08:30 AM VA-TOBACCO USE ADVICE [facility] Dec 22, 2020 08:30 AM 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 [facility] Dec 22, 2020 08:30 AM VA-TOBACCO USE MED NO [facility] Dec 22, 2020 08:30 AM VA-TOBACCO USER EVERY DAY [facility] Dec 11, 2018 10:05 AM VA-TOBACCO FORMER USER [facility] Dec 11, 2018 10:05 AM VA-TOBACCO QUIT < 1 YEAR [facility] Aug 12, 2017 04:20 PM CURRENT TOBACCO USER [facility] Aug 12, 2017 04:20 PM CURRENT TOBACCO US ER (NOT READY TO QUIT) [facility] Aug 12, 2017 04:20 PM SMOKELESS TOBACCO AMOUNT/LENGTH V15 60yr [facility] Aug 12, 2017 04:20 PM TOBACCO CESSATION REFERRAL DECLINED [facility] Aug 12, 2017 04:20 PM TOBACCO MEDS OFFER ED BUT DECLINED [facility] Aug 12, 2017 04:20 PM TOBACCO USER OFFERED MEDS [facility] Mar 20, 2015 08:26 AM CURRENT TOBACCO USER [facility] Mar 20, 2015 08:[address] [facility] [facility] Jan 14, 2014 11:24 AM CURRENT TOBACCO USER [facility] Jan 14, 2014 11:[address] [facility] Nov 02, 2012 10:28 AM CURRENT TOBACCO USER [facility] Nov 02, 2012 10:[address] [facility]MO[facility]INIC [facility] Mar 20, 2012 01:50 PM TOBACCO MEDS OFFER ED BUT DECLINED [facility] Mar 20, 2012 01:50 PM TOBACCO OFFERED PT MEDS (PROVIDER) [facility] Mar 20, 2012 01:[address] [facility] Nov 29, 2011 03:13 PM CURRENT TOBACCO USER [facility] Nov 29, 2011 03:13 PM TOBACCO MEDS OFFER ED BUT DECLINED [facility] Nov 29, 2011 03:13 PM TOBACCO OFFERED PT MEDS (PROVIDER) [facility] Nov 29, 2011 03:[address] [facility]MOKING [facility]INIC [facility] Sep 25, 2010 08:23 AM CURRENT TOBACCO USER [facility] Sep 25, 2010 08:23 AM LIFETIME NON-USER OF TOBACCO [facility] Sep 25, 2010 08:[address] [facility]MO[facility] Sep 08, 2009 02:45 PM QUIT TOBACCO >12 M O & <7 YRS AGO [facility] Nov 11, 2008 01:14 PM TOBACCO MEDS OFFER ED BUT DECLINED [facility] Nov 11, 2008 01:[address] [facility]INIC do not want [facility] May 12, 2007 09:17 AM CURRENT TOBACCO USER [facility] May 12, 2007 09:[address] [facility] do not want to quit smoking [facility] Nov 28, 2006 01:36 PM CURRENT TOBACCO USER [facility] Nov 28, 2006 01:36 PM TOBACCO MEDS OFFER ED BUT DECLINED [facility] Jul 28, 2006 08:56 AM CURRENT TOBACCO USER [facility] Advance Directives: All historical and current Section Date Range: From patient's date of to the date document was created. This section includes ALL of a patient's completed or amended [place] Advance and Rescinded Directives. The entries below indicate that a directive exists for the patient, but an actual copy is not included with this document. The data comes from all [place] facilities. Date Advance Directives Provider Source Nov 24, 2016 ADVANCE DIRECTIVE SHAYNA SHENU FF [facility] May 21, 2011 ADVANCE DIRECTIVE DISCUSSION ADAM SEYMOUR [facility] 2011 ADVANCE DIRECTIVE DISCUSSION ADAM SEYMOUR [facility] May 07, 2011 ADVANCE DIRECTIVE DISCUSSION ADAM SEYMOUR [facility] Radiology Reports: +/- 30 days of [...] the Encounter. The data comes from all [place] treatment facilities. Date/Time Radiology Report Provider Source Aug 09, 2024 11:11 AM CHEST X-RAY, 2 VIE WS: [facility] [id number] -[id number] M Exm Date: AUG 09, 2024@11:11 Req Phys: RICKEY AMBRIZ Pat Loc: PB-JULIUS PACT MEDRANO CALIN (Req'g L Img Loc: PB-XRAY [place] Service: [place] [address] (Case [id number] COMPLETE) CHEST X-RAY, 2 VIEWS (RAD Detailed) CPT:33250 Reason for Study: repeat cxr Clinical History: surgerical clearance Report Status: Verified Date Reported: AUG 09, 2024 Date Verified: AUG 09, 2024 Signal Tower Operator E-Sig: Report: PA and lateral views of the chest reveal moderate degenerative skeletal change, 1 partial compression of multiple thoracic vertebral bodies, 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 There is no infiltrate or effusion. Heart size is normal. Impression: 1. Chronic findings as noted 2. No acute process Primary Interpreting Staff: BRENNAN MCKEON RADIOLOGIST (Signal Tower Operator, no e-sig) /BRENNAN Boudreaux [facility] Encounter Notes: All associated encounter notes This section contains the clinical notes associated to the Encounter. Date/Time Encounter Note(s) Provider Source Aug 09, 2024 11:09 AM NURSING PROGRESS N OTE: LOCAL TITLE: NURSING NOTE PB STANDARD TITLE: NURSING PROGRESS NOTE DATE OF NOTE: AUG 09, 2024@11:09 ENTRY DATE: AUG 09, 2024@11:09:51 AUTHOR: GENARO ROBERTS EXP COSIGNER: URGENCY: STATUS: COMPLETED This is a 84 year old MALE with known Allergies as noted: Patient has answered NKA On the following Active Medications: Active Outpatient Medications (including Supplies): Active Outpatient Medications Status 1) ACETAMINOPHEN 500MG TAB TAKE ONE TABLET BY MOUTH FOUR TIMES ACTIVE A DAY NEEDED CAUTION: DO NOT EXCEED 4000MG PER DAY ACETAMINOPHEN (APAP) FROM ALL MEDS. Indication: FOR PAIN 2) ALBUTEROL 90MCG (CFC-F) 200D ORAL INHL INHALE 2 PUFFS ORAL ACTIVE INHALATION FOUR TIMES A DAY SHAKE WELL. RINSE MOUTHPIECE FREQUENTLY TO PREVENT CLOGGING. Indication: FOR ASTHMA 3) ALBUTEROL SO4 0.083% INHL 3ML INHALE 1 VIAL (2.5MG/3ML) BY ACTIVE (S) NEBULIZATION EVERY 6 HOURS DIRECTED Indication: FOR ASTHMA 4) CALCIUM 600MG/VITAMIN D 400UNIT TAB TAKE 2 TABLETS BY MOUTH ACTIVE ONCE A DAY TAKE WITH FOOD Indication: FOR CALCIUM SUPPLEMENTATION 5) CETIRIZINE HCL 10MG TAB TAKE ONE TABLET BY MOUTH ONCE A DAY ACTIVE NEEDED Indication: FOR ALLERGY SYMPTOMS 6) FLUOROURACIL 5% CREAM APPLY THIN AMOUNT TO ROUGH SCALY AREAS ACTIVE OF FACE. TO AFFECTED AREA(S) TWICE A DAY FOR 2 WEEKS AVOID SUN EXPOSURE. FOLLOW DIRECTIONS CAREFULLY FOR PROPER HANDLING/DISPOSAL. 7) FLUTICASONE PROP 50MCG 120D NASAL INHL INSTILL 2 SPRAYS IN ACTIVE NOSTRIL(S) ONCE A DAY NEEDED (MUST BE USED DIRECTED FOR MINIMUM OF 21 DAYS TO PROVIDE ADEQUATE BENEFITS) Indication: FOR RHINITIS 8) HYDROPHILIC (EQV EUCERIN) TOP CREAM APPLY LIGHTLY TO ACTIVE AFFECTED AREA(S) TWICE DAILY NEEDED (EXTERNAL USE ONLY) Indication: MOISTURIZER 9) LIDOCAINE 5% PATCH APPLY 1 PATCH TO SKIN SITE ONCE A DAY ACTIVE APPLY PATCH AND PRESS FIRMLY FOR 10-15 SECONDS. KEEP ON FOR 12 HOURS THEN REMOVE PATCH FOR 12 HOURS. Indication: FOR LOCAL ANESTHESIA 10) MONTELUKAST NA 10MG TAB TAKE ONE TABLET BY MOUTH EVERY ACTIVE EVENING Indication: FOR ASTHMA Active Non-VA Medications Status 1) Non-VA AMIODARONE HCL (PACERONE) 200MG TAB 200MG BY MOUTH ACTIVE ONCE A DAY 2) Non-VA ATORVASTATIN CALCIUM 80MG TAB 40MG BY MOUTH EVERY ACTIVE EVENING 3) Non-VA CLOPIDOGREL BISULFATE 75MG TAB 75MG BY MOUTH ONCE A ACTIVE DAY 4) Non-VA FERROUS SULFATE TAB 27MG BY MOUTH ONCE A DAY ACTIVE 5) Non-VA FOLIC ACID 1MG TAB 1MG BY MOUTH ONCE A DAY ACTIVE 6) Non-VA FUROSEMIDE 40MG TAB 40MG BY MOUTH TWICE DAILY ACTIVE NEEDED 7) Non-VA IMIQUIMOD 5% TOP CREAM PKT 0.25GM SPARINGLY TO ACTIVE AFFECTED AREA(S) 5X/WEEK Indication: FOR ACTINIC KERATOSIS 8) Non-VA MAGNESIUM OXIDE 400MG TAB 400MG BY MOUTH EVERY ACTIVE MORNING 9) Non-VA METOLAZONE 2.5MG TAB 2.5MG BY MOUTH ONCE A DAY ACTIVE NEEDED 10) Non-VA MULTIVITAMIN CAP/TAB 1 TABLET BY MOUTH ONCE A DAY ACTIVE 11) Non-VA POTASSIUM CL 20MEQ SA TAB (DISPERSIBLE) 20MEQ BY ACTIVE MOUTH TWICE A DAY 12) Non-VA TAMSULOSIN HCL 0.4MG CAP 0.4MG BY MOUTH EVERY EVENING ACTIVE 13) Non-VA TIOTROPIUM 18MCG INHL CAP 5 18MCG BY ORAL INHALATION ACTIVE ONCE A DAY 23 Total Medications C/C: 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 Aldrich reports he is to have eye surgery for detatched retina on Tuesday and needs a letter clearing him of his recent pneumonia and will need letter to faxed to Dr. Jiménez at [facility] [phone]. Aldrich also reports he wants a home home care associate to come in his home to held with ADLS. reports he does not want placement to assisted living. President & Founder mix tool was completed on 07/09/24. O/A: Aldrich rode to exam room in a wheelchair being propelled by his feet. Aldrich alert and oriented x4 with unlabored breathing. Lungs are diminished bilaterally. Vital Signs: see cover sheet Weight: unable to weigh P: Reviewed with Provider. Provider ordered a chest Xray. Xray obtained. Provider assessed Aldrich at chairside. 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 Advised that surgery clearance would letter would be faxed to Dr. Jiménez. voiced understanding and all questions and concerns addressed at this time. Aldrich escorted to lobby in satisfactory condition. RTC: Advised Aldrich to return to clinic as needed or report to ER if symptoms worsen. /minesh/ Genaro Roberts RN BSN CYNTHIA BIGGSWABRETT [facility] Signed: 08/09/2024 13:04 Receipt Acknowledged By: 08/09/2024 16:05 /minesh/ CHRISTIAN Mathews, MSN, Cynthia Biggshing [facility] GENARO ROBERTS [facility]
--- OUTSIDE RECORDS SUMMARY | 2024-12-28 09:33 | XMS_ITS ---
Author Name [facility] Address [address] [place] [address] Care Team Providers Care Ocean Freight Manager Name Role Phone SARAH DONOHUE Primary Care Provider Unavailabl e Insurance Providers: [...] Policy Harrison URSZULA ACOSTA [facility] (WNR) MEDICARE ADVANTAGE [facility] (WNR) Oct 28, 2022 [phone] Kaye RICHEY PATIENT MEDICARE (WNR) MEDICARE (M) PART A Apr 29, 2007 PART A [id number] [phone] Kaye RICHEY PATIENT MEDICARE (WNR) MEDICARE (M) PART B Apr 29, 2007 PART B [id number] Kaye RICHEY PATIENT Selected Encounter This section includes the information on record at [facility] for the Encounter. Date/Time Encounter Type Encounter Description Reason Pro vider Source Dec 28, 2024 02:33 PM Outpatient Encounter ADMIN PAT ACTIVTIES (MASNONCT) [facility] Encounter Template Text not used by [facility] Plan of Treatment: Future Appointments (+ 6 [...] 20 appointments. The data comes from all [facility] treatment facilities. Appointment Date/Time Appointment Type Appointme nt Facility Name Jan 02, 2025 07:53 AM AMBULATORY - MEDICINE [facility] Mar 19, 2025 08:30 AM AMBULATORY - MEDICINE [facility] Active, Pending, and Scheduled Orders This section includes a listing of several types of active, pending, and scheduled orders, including clinic medications orders, diagnostic test orders, procedure orders and consult orders; where the start date of the order is 45 days before the date of the Encounter or 45 days after the date of theEncounter. The data comes from all [facility] treatment facilities. Test Date/Time Test Type Test Details Facility Name Dec 31, 2024 02:23 PM Consult Order [facility] [id number] Cons Proposal Manager's Choice [facility] Social History: Smoking Status (Most current) and Tobacco Use (All prior to encounter date) This section includes the most current, and the historical, smoking and tobacco- related health factors from the ID facility where the Encounter took place. Current Smoking Status This section includes the most current smoking, or tobacco-related health factor, from the ID facility where the Encounter took place. Date/Time Current Smoking Status Comment Facil ity Aug 22, 2006 01:32 PM CURRENT TOBACCO USER [facility] Tobacco Use History This section includes a history of the smoking, or tobacco-related health factors, that were collected on or before the date of the Encounter. The data comes from the ID facility where the Encounter took place. Date/Time Smoking Status/Tobacco Use Comment F acility Apr 14, 2006 01:08 PM CURRENT TOBACCO USER [facility] Advance Directives: All historical and current Section Date Range: From patient's date of to the date document was created. This section includes ALL of a patient's completed or amended [place] Advance and Rescinded Directives. The entries below indicate that a directive exists for the patient, but an actual copy is not included with this document. The data comes from all ID facilities. Date Advance Directives Provider Source Nov 24, 2016 ADVANCE DIRECTIVE SHAYNA SHEN [facility] May 21, 2011 ADVANCE DIRECTIVE DISCUSSION ADAM SEYMOUR [facility] 2011 ADVANCE DIRECTIVE DISCUSSION ADAM [facility] May 07, 2011 ADVANCE DIRECTIVE DISCUSSION ADAM [facility] Encounter Notes: All associated encounter notes This section contains the clinical notes associated to the Encounter. Date/Time Encounter Note(s) Provider Source Dec 28, 2024 01:33 PM ADMINISTRATIVE NOT E: LOCAL TITLE: CCC: SCHEDULING ADMINISTRATION STANDARD TITLE: ADMINISTRATIVE NOTE DATE OF NOTE: DEC 28, 2024@13:33:34 ENTRY DATE: DEC 28, 2024@13:33:34 AUTHOR: ROMELIA ROGERS COSIGNER: URGENCY: STATUS: COMPLETED CCC: SCHEDULING ADMINISTRATION Has ADDENDA Caller Verification Caller/Recipient Relation to Patient: Other If Other Describe Relation to Patient: [facility] Caller Name: MALENA Administrative Administrative Note Reason: Other Administrative Note Comments: [place]'s nurse, Malena, calling informing his Team that the wants some physical therapy. Please call to discuss. If you have any questions for Malena, she can be reached at: [phone] EXT [phone]. Thank you. IMPORTANT: This note was created by [facility] Clinical Contact Center staff. Please do not alert the staff member by adding them as a signer for future communications. Alerts are not monitored by this user. /minesh/ ROMELIA ROGERS Signed: 12/28/2024 13:33 Receipt Acknowledged By: 12/31/2024 10:31 /es/ HEIDY TERAN LPN 12/28/2024 ADDENDUM STATUS: COMPLETED Attempted callt o Malena. Message left for her to return call to clinic. Clinic contact information including ext. left in message. /minesh/ Genaro Roberts REPAIRER FINISHED [facility] Signed: 12/28/2024 15:54 ROMELIA ROGERS [facility]
--- OUTSIDE RECORDS SUMMARY | 2024-12-31 04:15 | XMS_ITS ---
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 Date/Time Encounter Type Encounter Description Reason Pro vider Source Dec 31, 2024 09:15 AM Outpatient Encounter COMMUNITY CARE CONSULT IHE Encounter Template Text not used by [place] Plan of Treatment: Future Appointments (+ 6 [...] 20 appointments. The data comes from all [facility]. Appointment Date/Time Appointment Type Appointme nt Facility Name Jan 02, 2025 07:53 AM AMBULATORY - MEDICINE POPL [facility] Mar 19, 2025 08:30 AM AMBULATORY - MEDICINE [facility] Active, Pending, and Scheduled Orders This section includes a listing of several types of active, pending, and scheduled orders, including clinic medications orders, diagnostic test orders, procedure orders and consult orders; where the start date of the order is 45 days before the date of the Encounter or 45 days after the date of theEncounter. The data comes from all [facility]. Test Date/Time Test Type Test Details Facility Name Dec 31, 2024 02:23 PM Consult Order [facility] SKILLED HOME CARE [id number] Cons Call Worker's Choice [facility] Social History: Smoking Status (Most current) and Tobacco Use (All prior to encounter date) This section includes the most current, and the historical, smoking and tobacco- related health factors from the [place] facility where the Encounter took place. Current Smoking Status This section includes the most current smoking, or tobacco-related health factor, from the [place] facility where the Encounter took place. Date/Time Current Smoking Status Comment Facil ity Apr 05, 2008 08:19 AM CURRENT TOBACCO USER [facility] Tobacco Use History This section includes a history of the smoking, or tobacco-related health factors, that were collected on or before the date of the Encounter. The data comes from the [place] facility where the Encounter took place. Date/Time Smoking Status/Tobacco Use Comment F [facility] Sep 16, 2007 08:22 AM CURRENT TOBACCO USER [facility] Advance Directives: All historical and current Section Date Range: From patient's date of to the date document was created. This section includes ALL of a patient's completed or amended [place] Advance and Rescinded Directives. The entries below indicate that a directive exists for the patient, but an actual copy is not included with this document. The data comes from all [facility]. Date Advance Directives Provider Source Nov 24, 2016 ADVANCE DIRECTIVE SHAYNA SHEN FF [facility] May 21, 2011 ADVANCE DIRECTIVE DISCUSSION ADAM SEYMOUR [facility] 2011 ADVANCE DIRECTIVE DISCUSSION ADAM SEYMOUR [facility] May 07, 2011 ADVANCE DIRECTIVE DISCUSSION ADAM SEYMOUR [facility] Encounter Notes: All associated encounter notes This section contains the clinical notes associated to the Encounter. Date/Time Encounter Note(s) Provider Source Dec 31, 2024 09:15 AM TELEPHONE ENCOUNTE R NOTE: LOCAL TITLE: TELEPHONE NOTE STANDARD TITLE: TELEPHONE ENCOUNTER NOTE DATE OF NOTE: DEC 31, 2024@09:15 ENTRY DATE: DEC 31, 2024@09:15:56 AUTHOR: BRIONNA OWENS EXP COSIGNER: URGENCY: STATUS: COMPLETED [facility] at [facility] she has been informed is now discharged from [facility]. Elizabeth reports [place] has said they have ordered/will be sending orders to [place] for Home Health PT and OT. Elizabeth reports she has also informed [place] that he needs to contact [facility] to discuss NH/FCI discharge follow up appt for discharge needs. /minesh/ MELE Quinn, investigator welfare Care Director Of Enterprise Strategy Signed: 12/31/2024 09:17 Receipt Acknowledged By: 12/31/2024 10:30 /minesh/ HEIDY TERAN LPN * AWAITING SIGNATURE * SHAY RAMIREZ SARAH J [facility]
--- OUTSIDE RECORDS SUMMARY | 2024-12-31 09:38 | XMS_ITS | Encounter Summary ---
Author Name [place] Address [address] [place] [address] Care Team Providers Care Stable Helper Name Role Phone JAYDE GAGE Primary Care Provider Unavailabl e Insurance Providers: [...] Patient's Relationship to Policy Harrison URSZULA ACOSTA [place] MCR (WNR) MEDICARE ADVANTAGE [facility] (WNR) Oct 28, 2022 MOMCRWP 0 [id number] [phone] Kaye RICHEY PATIENT MEDICARE (WNR) MEDICARE (M) PART A Apr 29, 2007 PART A [id number] Kaye RICHEY PATIENT MEDICARE (WNR) MEDICARE (M) PART B Apr 29, 2007 PART B [id number] [phone] Kaye RICHEY PATIENT Selected Encounter This section includes the information on record at [place] for the Encounter. Date/Time Encounter Type Encounter Description Reason Pro vider Source Dec 31, 2024 02:38 PM Outpatient Encounter COMMUNITY CARE CONSULT IHE Encounter Template Text not used by [place] Plan of Treatment: Future Appointments (+ 6 [...] 20 appointments. The data comes from all [facility]. Appointment Date/Time Appointment Type Appointme nt Facility Name Jan 02, 2025 07:53 AM AMBULATORY - MEDICINE POPL [facility] Mar 19, 2025 08:30 AM [facility]ATORY [facility] Active, Pending, and Scheduled Orders This section includes a listing of several types of active, pending, and scheduled orders, including clinic medications orders, diagnostic test orders, procedure orders and consult orders; where the start date of the order is 45 days before the date of the Encounter or 45 days after the date of theEncounter. The data comes from all [facility]. Test Date/Time Test Type Test Details Facility Name Dec 31, 2024 02:23 PM Consult Order [facility] SKILLED HOME CARE [id number] Cons Production Sampler's Choice [facility] Social History: Smoking Status (Most current) and Tobacco Use (All prior to encounter date) This section includes the most current, and the historical, smoking and tobacco- related health factors from the [place] facility where the Encounter took place. Current Smoking Status This section includes the most current smoking, or tobacco-related health factor, from the [place] facility where the Encounter took place. Date/Time Current Smoking Status Comment Facil ity Apr 05, 2008 08:19 AM CURRENT TOBACCO USER [facility] Tobacco Use History This section includes a history of the smoking, or tobacco-related health factors, that were collected on or before the date of the Encounter. The data comes from the [place] facility where the Encounter took place. Date/Time Smoking Status/Tobacco Use Comment F acmontserrat Sep 16, 2007 08:22 AM CURRENT TOBACCO USER [facility] Advance Directives: All historical and current Section Date Range: From patient's date of to the date document was created. This section includes ALL of a patient's completed or amended [place] Advance and Rescinded Directives. The entries below indicate that a directive exists for the patient, but an actual copy is not included with this document. The data comes from all [facility]. Date Advance Directives Provider Source Nov 24, 2016 ADVANCE DIRECTIVE SHAYNA SHEN FF [facility] May 21, 2011 ADVANCE DIRECTIVE DISCUSSION ADAM SEYMOUR [facility] 2011 ADVANCE DIRECTIVE DISCUSSION [facility] May 07, 2011 ADVANCE DIRECTIVE DISCUSSION ADAM SE[place]OUR [place] [facility] Encounter Notes: All associated encounter notes This section contains the clinical notes associated to the Encounter. Date/Time Encounter Note(s) Provider Source Dec 31, 2024 02:38 PM GERIATRIC MEDICINE CABLE MECHANIC NOTE: LOCAL TITLE: [facility] COORDINATION TEAM NOTE STANDARD TITLE: GERIATRIC MEDICINE CABLE MECHANIC NOTE DATE OF NOTE: DEC 31, 2024@14:38 ENTRY DATE: DEC 31, 2024@14:38:11 AUTHOR: BRIONNA OWENS COSIGNER: URGENCY: STATUS: COMPLETED THE PATIENT HAS BEEN REFERRED TO THE FOLLOWING SERVICES HOME CARE SERVICES: Community skilled Home Health Care PT, OT *Therapy may have SN visits to complete Medicare required [place]. SN to provide med box fills and nail care while agency is in the home. When therapy is ready to exit, Agency to resume tasks under Medicaid HOME CARE SERVICE FUNDING: [place]: [employer] Date service is projected to start: [id number] Date service is projected to end: [id number] DURATION OF CARE: SKILLED/INHOME: 120 DAYS NAME OF AGENCY TO PROVIDE SERVICES: Agency: [facility] Address: [address] [place] [address] Office: [phone] Email: [email or web address]; [facility]: Region 2 Tax ID: [id number] -[facility]. Checked [phone]. Contact: Susie Colón *Please send all correspondence/orders to Dr. Gage De Jesus. Helpful phone numbers: Kevin Gavin [facility] Contract Design Agent - [phone] [place] phone: [phone]; fax: [phone] '[place]' team - Dr. Gage De Jesus' RN Genaro Roberts [id number] Care Coordination Point of Contact: MELE Kenyon, RN [phone] [email or web address] Email: [email or web address] PLAN: New Services- Transition to Home Health Services. SN to provide med box fills and nail care while agency is in the home. When therapy is ready to exit, Agency to resume tasks under Medicaid /minesh/ MELE Quinn, maintenance machinist Care Industrial Ecologist Signed: 12/31/2024 16:12 Receipt Acknowledged By: 01/01/2025 07:49 /minesh/ ANALISA CARNES Advanced Medical Support BRIONNA OWENS [facility]
--- OUTSIDE RECORDS SUMMARY | 2025-01-01 02:53 | XMS_ITS | Encounter Summary ---
Author Name [place] Address [address] [place] [address] Care Team Providers Care Rehabilitation Specialist Name Role Phone DONOHUESARAH Primary Care Provider Unavailabl e Insurance Providers: [...] Relationship to Policy Harrison URSZULA ACOSTA [facility] (WNR) MEDICARE ADVANTAGE [facility] (WNR) Oct 28, 2022 MOMCRWP 0 [id number] Kaye RICHEY PATIENT MEDICARE (WNR) MEDICARE (M) PART A Apr 29, 2007 PART A [id number] Kaye RICHEY PATIENT MEDICARE (WNR) MEDICARE (M) PART B Apr 29, 2007 PART B [id number] [phone] Kaye RICHEY PATIENT Selected Encounter This section includes the information on record at [place] for the Encounter. Date/Time Encounter Type Encounter Description Reason Pro vider Source Jan 01, 2025 07:53 AM Outpatient Encounter [facility] ASSESSMENT IHE Encounter Template Text not used by [place] Plan of Treatment: Future Appointments (+ 6 [...] 20 appointments. The data comes from all [facility]. Appointment Date/Time Appointment Type Appointme nt Facility Name Jan 02, 2025 07:53 AM AMBULATORY - MEDICINE POPL [facility] Mar 19, 2025 08:30 AM AMBULATORY - [...] of theEncounter. The data comes from all [facility]. Test Date/Time Test Type Test Details Facility Name Dec 31, 2024 02:23 PM Consult Order [facility] SKILLED HOME CARE [id number] Cons Purchase Request Editor's Choice [facility] Social History: Smoking Status (Most current) and Tobacco Use (All prior to encounter date) This section includes the most current, and the historical, smoking and tobacco- related health factors from the [place] facility where the Encounter took place. Current Smoking Status This section includes the most current smoking, or tobacco-related health factor, from the [place] facility where the Encounter took place. Date/Time Current Smoking Status Comment Facil ity Apr 05, 2008 08:19 AM CURRENT TOBACCO USER [facility] Tobacco Use History This section includes a history of the smoking, or tobacco-related health factors, that were collected on or before the date of the Encounter. The data comes from the [place] facility where the Encounter took place. Date/Time Smoking Status/Tobacco Use Comment F acmontserrat Sep 16, 2007 08:22 AM CURRENT TOBACCO USER [facility] Advance Directives: All historical and current Section Date Range: From patient's date of to the date document was created. This section includes ALL of a patient's completed or amended [place] Advance and Rescinded Directives. The entries below indicate that a directive exists for the patient, but an actual copy is not included with this document. The data comes from all [facility]. Date Advance Directives Provider Source Nov 24, 2016 ADVANCE DIRECTIVE SHAYNA SHEN FF [facility] May 21, 2011 ADVANCE DIRECTIVE DISCUSSION ADAM SEYMOUR [facility] 2011 ADVANCE DIRECTIVE DISCUSSION MYRA SEYMOURLUCY Caputo [facility] May 07, 2011 ADVANCE DIRECTIVE DISCUSSION GARYMYRA SYLUCY Caputo [place] [place] [facility] Encounter Notes: All associated encounter notes This section contains the clinical notes associated to the Encounter. Date/Time Encounter Note(s) Provider Source Jan 01, 2025 07:53 AM SOCIAL WORK NOTE: LOCAL TITLE: DIRECTED CARE STANDARD TITLE: SOCIAL WORK NOTE DATE OF NOTE: JAN 01, 2025@07:53 ENTRY DATE: JAN 01, 2025@07:53:42 AUTHOR: MARK NAVA COSIGNER: URGENCY: STATUS: COMPLETED SPENDING PLAN Updated budget sumbmitted to reflect a change in caregiver, adding an authorized corporate representative for the [facility] program and adding workmans compensation. DATE:JAN 01, 2025 NAME:JESSE RICHEY DATE OF :Apr ADDRESS:[address] [place] [address] PHONE: Date Services Began:08/27/24 CASE MIX LEVEL: A:[X}G:[ ] B:[ ]H:[ ] C:[ ]I:[ ] D:[ ]J:[ ] E:[ ]K:[ ] F:[ ]V:[ ] ___ PLANNED SERVICE (EMPLOYEE HIRED): Main Caregiver:Mirna Hernández Second Caregiver: HOURS: Main:19 Second: BACKUP SERVICE:N/A ROUTINE PLANNED NON-EMPLOYEE GOODS AND SERVICES: workmans compensation ONE-TIME GOODS AND SERVICES PURCHASES: N/A SPECIFIED SAVING ITEMS AND SAVING FOR EMERGENCIES: minimal savings allotted for program needs AGENCY REPORTING: [X}[facility] ( ) [ ][facility] [place] ( ) [ ][facility] [place] ( ) Purchase Request Editor: Shereen Vivas Is Plan Approved or Denied: APPROVED /es/ MARK NAVA RN VISITING TRANSPORT AIDE Signed: 01/01/2025 07:53 Receipt Acknowledged By: * AWAITING SIGNATURE * ALEYDA STALLINGS,MARK GARCIA [facility]
[2025-01-03] VITALS (28 sets, daily range): BP systolic 76–131; BP diastolic 37–76; PULSE 65–80; RESP 16–29; TEMP 36.4–36.8; O2SAT 88–100; BMI 23.0
--- OUTSIDE RECORDS SUMMARY | 2025-01-03 08:17 | XMS_ITS | Continuity of Care Document ---
Author Name [facility] Organization [facility] Care Team Providers Care Mud Boss Name Role Phone [facility] Unavailable Unavailable Problems Combined list of problems from Department of Defense and Veterans Affairs facilities. It does not include entries that were removed or entered in error. Problem Status Onset Date Problem Type Date of Resolution Comments Source Abnormal gait Active Condition [place] [facility] Actinic keratosis (SNOMED CT 506003413) Active Condition [place] [facility] AF - Atrial Fibrillation (SCT 62247976) Active Condition Aug 19, 2022 Entered By: SUMMER KAUFMAN Comment: New Onset 07/2022. 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 [place] [facility] Cholelithiasis Active Condition September Entered By: SUMMER KAUFMAN Comment: Incidental US finding 09/2022. [place] [facility] Chronic obstructive lung disease (SNOMED CT 41961958) Active Condition [place] [facility] Cirrhosis of Liver (SCT 85813326) Active Condition October 05, 2022 Entered By: SUMMER KAUFMAN Comment: By US 09/2022.....hardeep dillon from [facility]. [place] [facility] Cognitive decline Active Condition [place] [facility] compression fractures thoracic vertebra Active Condition [place] [facility] Environmental allergy Active Condition [place] [facility] Essential hypertension (SNOMED CT 77581888) Active Condition [place] [facility] Hoarse (SNOMED CT 29233421) Active Condition [place] [facility] Hyperlipidemia (SNOMED CT 51011163) Active Condition [place] [facility] Osteoarthritis (SNOMED CT 025899308) Active Condition [place] [facility] Pain in left foot Active Condition [place] [facility] Pain in right foot Active Condition [place] [facility] Personal History of Noncompliance with Medical Treatment, Presenting Hazards to Active Condition [place] [facility] PVD - peripheral vascular disease Active Condition October 19 2 Entered By: SUMMER KAUFMAN Comment: US 10/18 shows JAMES 0.7 on left, and on right, total occlusion of dorsalis pedis and posterior tibial arteries. [place] [facility] Spinal Stenosis of Lumbar Region (SCT 31742586) Active Condition [place] [facility] Tobacco Use Disorder * (ICD-9-CM 305.1) Active Condition [place] [facility] Vitamin D deficiency Active Condition [facility]amp (SNOMED CT 98125927) Inactive Condition 08/27/2021 [place] [facility] Encounters for other Specified Administrative Purpose (ICD-9-CM V68.89) Inactive Condition 12/22/2020 [place] [facility] Laboratory Procedures (ICD-9-CM V72.6) Inactive Condition 08/27/2021 [facility] Personal History of Tobacco Use (ICD-9-CM V15.82) Inactive Condition 08/27/2021 [place] [facility] Routine General Medical Examination at a Health Care Facility * (ICD-9-CM V70.0) Inactive Condition 12/22/2020 [facility] Diagnosis: ICD-10-CM Z71.89 Other specified counseling Active Diagnosis [facility] Diagnosis: ICD-10-CM Z74.1 Need for assistance with personal care Active Diagnosis [place] [facility] Diagnosis: ICD-10-CM Z02.89 Encounter for other administrative examinations Active Diagnosis [facility] Diagnosis: ICD-10-CM R53.1 Weakness Active Diagnosis [facility] Diagnosis: ICD-10-CM W19.XXXA Unspecified fall, initial encounter Active Diagnosis [facility] Diagnosis: ICD-10-CM M79.671 Pain in right foot Active Diagnosis [facility] Diagnosis: ICD-10-CM Z13.5 Encounter for screening for eye and ear disorders Active Diagnosis [facility] Diagnosis: ICD-10-CM Z13.9 Encounter for screening, unspecified Active Diagnosis [place] [facility] Diagnosis: ICD-10-CM Z00.01 Encounter for general adult medical exam w abnormal findings Active Diagnosis [facility] Diagnosis: ICD-10-CM Z23 Encounter for immunization Active Diagnosis [facility] Diagnosis: ICD-10-CM 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 Diagnosis [facility] Diagnosis: ICD-10-CM M54.50 Low back pain, unspecified Active Diagnosis [facility] Diagnosis: ICD-10-CM R52 Pain, unspecified Active Diagnosis [facility] Diagnosis: ICD-10-CM Z71.9 Counseling, unspecified Active Diagnosis [facility] Diagnosis: ICD-10-CM Z09 Encntr for f/u exam aft trtmt for cond oth than malig neoplm Active Diagnosis [facility] Diagnosis: ICD-10-CM L01.00 Impetigo, unspecified Active Diagnosis [place] [facility] Diagnosis: ICD-10-CM R06.00 Dyspnea, unspecified Active Diagnosis [facility] Diagnosis: ICD-10-CM J20.9 Acute bronchitis, unspecified Active Diagnosis [facility] Diagnosis: ICD-10-CM M62.81 Muscle weakness (generalized) Active Diagnosis [facility] Diagnosis: ICD-10-CM S81.801S Unspecified open wound, right lower leg, sequela Active Diagnosis [facility] Diagnosis: ICD-10-CM S81.001D Unspecified open wound, right knee, subsequent encounter Active Diagnosis [facility] Diagnosis: ICD-10-CM Z48.02 Encounter for removal of sutures Active Diagnosis [facility] Diagnosis: ICD-10-CM S80.811S Abrasion, right lower leg, sequela Active Diagnosis [facility] Diagnosis: ICD-10-CM S81.809A Unspecified open wound, unspecified lower leg, init encntr Active Diagnosis [facility] Diagnosis: ICD-10-CM S01.119A Laceration w/o fb of unsp eyelid and periocular area, init Active Diagnosis [facility] Diagnosis: ICD-10-CM M79.672 Pain in left foot Active Diagnosis [facility] Diagnosis: ICD-10-CM J02.9 Acute pharyngitis, unspecified Active Diagnosis [facility] Diagnosis: ICD-10-CM R05.1 Acute cough Active Diagnosis [facility] Diagnosis: ICD-10-CM J01.90 Acute sinusitis, unspecified Active Diagnosis [facility] Medications Combined list of outpatient medications from Department of Defense and Veterans Affairs facilities.Medications provided include 1) outpatient medications from the last 15 months, and 2) patient-reported medications. Medication Details Route Status Patient Instructions Prescription Expires Prescription Number Last Dispense Date Ordering Provider Order Date Order Qty Source ACETAMINOPH EN 500MG TAB TAKE ONE TABLET BY MOUTH FOUR TIMES A DAY NEEDED FOR PAIN CAUTION: DO NOT EXCEED 4000MG PER DAY ACETAMIN OPHEN (APAP) FROM ALL MEDS. ORAL ACTIVE 01/26/2025 [id number] 4 ELLEN LEE 2023 400 [facility] ALBUTEROL SO4 0.083% INHL,3ML INHALE 1 VIAL (2.5MG/3 ML) BY NEBULIZA TION EVERY 6 HOURS DIRECTED FOR ASTHMA NEBULI ZATION 12/12/2024 [id number] 5 CHRISTAL AMBRIZ ISTEL G 2023 120 [facility] ALBUTEROL SO4 90MCG/ACTUA T (CFC-F) INHL,ORAL,8 .5GM INHALE 2 PUFFS ORAL INHALATI ON FOUR TIMES A DAY FOR ASTHMA SHAKE WELL. RINSE MOUTHPIE CE FREQUENT LY TO PREVENT CLOGGING . RESPIR ATORY (INHAL ATION) 12/12/2024 [id number] 5 CHRISTAL AMBRIZ ISTEL G 2023 3 [facility] AMIODARONE HCL (PACERONE) 200MG TAB TAKE ONE TABLET BY MOUTH ONCE A DAY ORAL ACTIVE KATHRYN KAUFMAN 2022 [facility] ATORVASTATI N CA 80MG TAB TAKE ONE-HALF TABLET BY MOUTH EVERY EVENING ORAL ACTIVE KATHRYN KAUFMAN 2022 [facility] CALCIUM 600MG ( CARBONATE)/ VITAMIN D 400UNIT TAB TAKE 2 TABLETS BY MOUTH ONCE A DAY FOR CALCIUM SUPPLEME NTATION TAKE WITH FOOD ORAL ACTIVE 01/27/2025 [id number] 5 VENKAT HERZOG 2023 180 [facility] CETIRIZINE HCL 10MG TAB TAKE ONE TABLET BY MOUTH ONCE A DAY NEEDED FOR ALLERGY SYMPTOMS ORAL 08/25/2024 [id number] 4 CHRISTAL AMBRIZ ISTEL G 2023 90 [place] [facility] CLOPIDOGREL BISULFATE 75MG TAB TAKE ONE TABLET BY MOUTH ONCE A DAY ORAL ACTIVE KATHRYN KAFUMAN 2022 [facility] FERROUS SULFATE TAB TAKE 27MG BY MOUTH ONCE A DAY ORAL ACTIVE KATHRYN KAUFMAN 2022 [facility] FLUOROURACI L 5% CREAM,TOP APPLY THIN AMOUNT TO ROUGH SCALY AREAS OF FACE. TO AFFECTED AREA(S) TWICE A DAY FOR 2 WEEKS AVOID SUN EXPOSURE . FOLLOW DIRECTIO NS CAREFULL Y FOR PROPER HANDLING /DISPOSA L. TOPICA L ACTIVE 02/02/2025 [id number] SALVADOR DALENY A 2023 40 [place] [facility] FLUTICASONE PROPIONATE 50MCG/SPRAY SOLN,NASAL, 16GM INSTILL 2 SPRAYS IN NOSTRIL( S) ONCE A DAY NEEDED FOR RHINITIS (MUST BE USED DIRECTED FOR MINIMUM OF 21 DAYS TO PROVIDE ADEQUATE BENEFITS ) NASAL 08/25/2024 [id number] CHRISTAL AMBRIZ ISTEL G 2023 3 [facility] FOLIC ACID 1MG TAB TAKE ONE TABLET BY MOUTH ONCE A DAY ORAL ACTIVE KATHRYN KAUFMAN 2022 [facility] FUROSEMIDE 40MG TAB TAKE ONE TABLET BY MOUTH TWICE A DAY NEEDED ORAL ACTIVE KATHRYN KAUFMAN 2022 [facility] IMIQUIMOD 5% CREAM,TOP,P KT,0.25GM APPLY SPARINGL Y TO AFFECTED AREA(S) 5X/WEEK TOPICA L ACTIVE KATHRYN KAUFMAN 2022 [place] [facility] LIDOCAINE 5% PATCH APPLY 1 PATCH TO SKIN SITE ONCE A DAY FOR LOCAL ANESTHES IA APPLY PATCH AND PRESS FIRMLY FOR 10-15 SECONDS. KEEP ON FOR 12 HOURS THEN REMOVE PATCH FOR 12 HOURS. TRANSD ERMAL ACTIVE 01/26/2025 [id number] 4 ELLEN LEE Kaye 2023 90 [facility] MAGNESIUM OXIDE 400MG TAB TAKE ONE TABLET BY MOUTH EVERY MORNING ORAL ACTIVE KATHRYN KAUFMAN 2022 [facility] METOLAZONE 2.5MG TAB TAKE ONE TABLET BY MOUTH ONCE A DAY NEEDED ORAL ACTIVE KATHRYN KAUFMAN 2023 [facility] MONTELUKAST NA 10MG TAB TAKE ONE TABLET BY MOUTH EVERY EVENING FOR ASTHMA ORAL 12/12/2024 [id number] CHRISTAL AMBRIZ ISTEL G [address] [place] [address] [facility] MULTIVITAMI NS CAP/TAB TAKE ONE TABLET BY MOUTH ONCE A DAY ORAL ACTIVE KATHRYN KAUFMAN 2022 [facility] POTASSIUM CHLORIDE 20MEQ TAB,SA (DISPERSIBL E) TAKE ONE TABLET BY MOUTH TWICE A DAY ORAL ACTIVE KATHRYN KAUFMAN 2022 [facility] [facility] [facility] TAMSULOSIN HCL 0.4MG CAP TAKE 1 CAPSULE BY MOUTH EVERY EVENING ORAL ACTIVE KATHRYN KAUFMAN 2022 [facility] TIOTROPIUM 18MCG CAP,INHL,5 INHALE 1 CAPSULE BY ORAL INHALATI ON ONCE A DAY RESPIR ATORY (INHAL ATION) ACTIVE KATHRYN KAUFMAN 2022 [facility] Immunizations Combined list of available immunizations from the Department of Defense and Veterans Affairs facilities. Immunization Series Date Given Administered By Site Reaction Lot Number CVX Code Drug Community Services Officer Status Comments Source INFLUENZA, HIGH-DOSE, TRIVALENT, PF 2023 ANOOP [place] LEFT DELTO ID [id number] 135 complet ed [facility] PNEUMOCOCCAL POLYSACCHARID E PPV23 2021 33 complet ed [place] [facility] TDAP 2021 115 complet ed [facility] COVID-19 (MODERNA), MRNA, LNP-S, PF, 100 MCG/0.5ML DOSE OR 50 MCG/0.25ML DOSE 2020 207 complet ed HISTORICA L INFORMATI ON - FROM PATIENT'S WRITTEN RECORD, Written record [facility] Lot#: [id number] [facility]IS[facility] N INFLUENZA, INJECTABLE, QUADRIVALENT, PRESERVATIVE FREE 2020 150 complet ed [place] [facility] COVID-19 (MODERNA), MRNA, LNP-S, PF, 100 MCG/0.5ML DOSE OR 50 MCG/0.25ML DOSE 2 2020 207 complet ed HISTORICA L INFORMATI ON - FROM PATIENT'S WRITTEN RECORD, [facility] written record received Lot#: [id number] [facility] COVID-19 (MODERNA), MRNA, LNP-S, PF, 100 MCG/0.5ML DOSE OR 50 MCG/0.25ML DOSE 1 2020 207 complet ed HISTORICA L INFORMATI ON - FROM PATIENT'S WRITTEN RECORD, Per written record [facility] Lot#: [id number] [facility] INFLUENZA, INJECTABLE, QUADRIVALENT, PRESERVATIVE FREE 2019 150 complet ed [place] [facility] HEP A-HEP B 2 2018 NONE 104 complet ed [facility] INFLUENZA, INJECTABLE, QUADRIVALENT, PRESERVATIVE FREE 2018 150 complet ed [facility] HEP A-HEP B 1 2018 NONE 104 complet ed [facility] INFLUENZA, SEASONAL, INJECTABLE, PRESERVATIVE FREE 2017 140 complet ed Right Deltoid [place] [facility] ZOSTER RECOMBINANT 2 2017 187 complet ed [place] [facility] ZOSTER RECOMBINANT 1 2017 187 complet ed [place] [facility] INFLUENZA, SEASONAL, INJECTABLE, PRESERVATIVE FREE 2016 140 complet ed Right Deltoid [place] [facility] INFLUENZA, SEASONAL, INJECTABLE, PRESERVATIVE FREE 2015 140 complet ed [place] [facility] INFLUENZA, SEASONAL, INJECTABLE, PRESERVATIVE FREE 2014 140 complet ed [facility] PNEUMOCOCCAL CONJUGATE PCV 13 2014 133 complet ed [facility] INFLUENZA, SEASONAL, INJECTABLE, PRESERVATIVE FREE 2013 140 complet ed [facility] TDAP 2011 115 complet ed [facility] PNEUMOCOCCAL, UNSPECIFIED FORMULATION 2011 109 complet ed [facility] INFLUENZA, UNSPECIFIED FORMULATION 2011 88 complet ed [facility] ZOSTER LIVE 2011 [place] 121 complet ed [place] [facility] INFLUENZA, UNSPECIFIED FORMULATION 2010 88 complet ed [facility] INFLUENZA, UNSPECIFIED FORMULATION 2009 88 complet ed [facility] INFLUENZA, UNSPECIFIED FORMULATION 2008 88 complet ed [facility] INFLUENZA, UNSPECIFIED FORMULATION 2007 88 complet ed [facility] INFLUENZA, UNSPECIFIED FORMULATION 2006 88 complet ed [facility] PNEUMOCOCCAL, UNSPECIFIED FORMULATION 2006 109 complet ed [facility] INFLUENZA, UNSPECIFIED FORMULATION 2006 88 complet ed [facility] OUTSIDE PNEUMOVAX (HISTORICAL) 2006 109 complet ed [facility] PNEUMOCOCCAL, UNSPECIFIED FORMULATION 2005 109 complet ed [id number], Right Deltoid [place] [facility] Results Combined list of recent chemistry, hematology and other laboratory results from Department of Defense and Veterans Affairs, ranging from 15 months to all on record, depending upon the facility. Order Name Results Value Reference Range Date Interpretation Specimen Comments Source B12 COBALAMIN (VITAMIN B12) [MASS/VOLUM E] IN SERUM OR PLASMA 582 pg/mL 213 - 816 09/14 Specimen Type: SERUM No comment entered. Ordering Provider: STACIE AMBRIZ Report Released Date/Time: Sep 14, 2024 11:05 AM Reporting Lab: [place] [facility] [address] [place] [address] Performing Lab: [place] [facility] [address] [place] [address] [facility] CBC LEUKOCYTES [#/VOLUME] IN BLOOD BY AUTOMATED COUNT 5.2 10*3/uL 3.6 - 11.2 09/14 Specimen Type: BLOOD No comment entered. Ordering Provider: AMBRIZ,STACIE TEL G Report Released Date/Time: Sep 14, 2024 11:05 AM Reporting Lab: [place] [facility] [address] [place] [address] Performing Lab: [place] [facility] [address] [place] [address] [facility] CBC ERYTHROCYTE S [#/VOLUME] IN BLOOD BY AUTOMATED COUNT 4.40 10*6/uL 4.10 - 5.70 09/14 Specimen Type: BLOOD No comment entered. Ordering Provider: STACIE AMBRIZ Report Released Date/Time: Sep 14, 2024 11:05 AM Reporting Lab: [place] [facility] [address] [place] [address] Performing Lab: [place] [facility] [address] [place] [address] [facility] CBC HEMOGLOBIN [MASS/VOLUM E] IN BLOOD 10.3 g/dL 13.1 - 16.8 09/14 L Specimen Type: BLOOD No comment entered. Ordering Provider: STACIE AMBRIZ Report Released Date/Time: Sep 14, 2024 11:05 AM Reporting Lab: [place] [facility] [address] [place] [address] Performing Lab: [place] [facility] [address] [place] [address] [facility] CBC HEMATOCRIT [VOLUME FRACTION] OF BLOOD 34.8 38.2 - 48.4 09/14 L Specimen Type: BLOOD No comment entered. Ordering Provider: STACIE AMBRIZ Report Released Date/Time: Sep 14, 2024 11:05 AM Reporting Lab: [place] [facility] [address] [place] [id number] Performing Lab: [place] [facility] [address] [place] [address] [facility] CBC MCV [ENTITIC VOLUME] BY AUTOMATED COUNT 79.1 fL 80.0 - 100.0 09/14 L Specimen Type: BLOOD No comment entered. Ordering Provider: STACIE AMBRIZ Report Released Date/Time: Sep 14, 2024 11:05 AM Reporting Lab: [place] [facility] [address] [place] [address] Performing Lab: [place] [facility] [address] [place] [id number] [facility] CBC MCH [ENTITIC MASS] BY AUTOMATED COUNT 23.4 pg 27.0 - 34.0 09/14 L Specimen Type: BLOOD No comment entered. Ordering Provider: STACIE AMBRIZ Report Released Date/Time: Sep 14, 2024 11:05 AM Reporting Lab: [place] [facility] [address] [place] [address] Performing Lab: [place] [facility] [address] [place] [address] [facility] CBC MCHC [MASS/VOLUM E] BY AUTOMATED COUNT 29.6 g/dL 33.0 - 36.0 09/14 L Specimen Type: BLOOD No comment entered. Ordering Provider: STACIE AMBRIZ Report Released Date/Time: Sep 14, 2024 11:05 AM Reporting Lab: [place] [facility] [address] [place] [id number] Performing Lab: [place] [facility] [address] [place] [id number] [facility] CBC PLATELETS [#/VOLUME] IN BLOOD BY AUTOMATED COUNT 355 10*3/uL 150 - 400 09/14 Specimen Type: BLOOD No comment entered. Ordering Provider: STACIE AMBRIZ Report Released Date/Time: Sep 14, 2024 11:05 AM Reporting Lab: [place] [facility] [address] [place] [id number] Performing Lab: [place] [facility] [address] [place] [address] [facility] CBC PLATELET MEAN VOLUME [ENTITIC VOLUME] IN BLOOD BY AUTOMATED COUNT 9.9 fL 7.5 - 11.2 09/14 Specimen Type: BLOOD No comment entered. Ordering Provider: STACIE AMBRIZ Report Released Date/Time: Sep 14, 2024 11:05 AM Reporting Lab: [place] [facility] [address] [place] [address] Performing Lab: [place] [facility] [address] [place] [address] [facility] CBC PLATELET ADEQUACY [PRESENCE] IN BLOOD BY LIGHT MICROSCOPY ADEQUATE 09/14 Specimen Type: BLOOD No comment entered. Ordering Provider: STACIE AMBRIZ Report Released Date/Time: Sep 14, 2024 11:05 AM Reporting Lab: [place] [facility] [address] [place] [id number] Performing Lab: [place] [facility] [address] [place] [address] [place] [address] [facility] CBC ANISOCYTOSI S [PRESENCE] IN BLOOD BY LIGHT MICROSCOPY 2+ 09/14 H Specimen Type: BLOOD No comment entered. Ordering Provider: STACIE AMBRIZ Report Released Date/Time: Sep 14, 2024 11:05 AM Reporting Lab: [place] [facility] [address] [place] [address] Performing Lab: [place] [facility] [address] [place] [address] [facility] CBC ERYTHROCYTE DISTRIBUTIO N WIDTH [RATIO] BY AUTOMATED COUNT 21.3 11.8 - 15.1 09/14 H Specimen Type: BLOOD No comment entered. Ordering Provider: STACIE AMBRIZ Report Released Date/Time: Sep 14, 2024 11:05 AM Reporting Lab: [place] [facility] [address] [place] [phone] Performing Lab: [place] [facility] [address] [place] [phone] [facility] CBC LYMPHOCYTES /100 LEUKOCYTES IN BLOOD BY AUTOMATED COUNT 29.9 09/14 Specimen Type: BLOOD No comment entered. Ordering Provider: STACIE AMBRIZ Report Released Date/Time: Sep 14, 2024 11:05 AM Reporting Lab: [place] [facility] [address] [place] [phone] Performing Lab: [place] [facility] [address] [place] [address] [place] [address] [facility] CBC MONOCYTES/1 00 LEUKOCYTES IN BLOOD BY AUTOMATED COUNT 13.4 04/18 /2025 Specimen Type: BLOOD No comment entered. Ordering Provider: STACIE AMBRIZ Report Released Date/Time: Sep 14, 2024 11:05 AM Reporting Lab: [place] [facility] [address] [place] [address] Performing Lab: [place] [facility] [address] [place] [address] [facility] CBC NEUTROPHILS /100 LEUKOCYTES IN BLOOD BY AUTOMATED COUNT 44.2 09/14 Specimen Type: BLOOD No comment entered. Ordering Provider: STACIE AMBRIZ Report Released Date/Time: Sep 14, 2024 11:05 AM Reporting Lab: [place] [facility] [address] [place] [address] Performing Lab: [place] [facility] [address] [place] [address] [place] [address] [facility] CBC EOSINOPHILS /100 LEUKOCYTES IN BLOOD BY AUTOMATED COUNT 10.0 09/14 Specimen Type: BLOOD No comment entered. Ordering Provider: STACIE AMBRIZ Report Released Date/Time: Sep 14, 2024 11:05 AM Reporting Lab: [place] [facility] [address] [place] [address] Performing Lab: [place] [facility] [address] [place] [address] [facility] CBC BASOPHILS/1 00 LEUKOCYTES IN BLOOD BY AUTOMATED COUNT 1.7 09/14 Specimen Type: BLOOD No comment entered. Ordering Provider: STACIE AMBRIZ Report Released Date/Time: Sep 14, 2024 11:05 AM Reporting Lab: [place] [facility] [address] [place] [address] Performing Lab: [place] [facility] [address] [place] [address] [place] [address] [facility] CBC LYMPHOCYTES [#/VOLUME] IN BLOOD BY AUTOMATED COUNT 1.56 10*3/uL 0.77 - 4.50 09/14 Specimen Type: BLOOD No comment entered. Ordering Provider: STACIE AMBRIZ Report Released Date/Time: Sep 14, 2024 11:05 AM Reporting Lab: [place] [facility] [address] [place] [address] Performing Lab: [place] [facility] [address] [place] [id number] [facility] CBC MONOCYTES [#/VOLUME] IN BLOOD BY AUTOMATED COUNT 0.70 10*3/uL 0.19 - 0.8 09/14 Specimen Type: BLOOD No comment entered. Ordering Provider: STACIE AMBRIZ Report Released Date/Time: Sep 14, 2024 11:05 AM Reporting Lab: [place] [facility] [address] [place] [id number] Performing Lab: [place] [facility] [address] [place] [address] [facility] CBC NEUTROPHILS [#/VOLUME] IN BLOOD BY AUTOMATED COUNT 2.30 10*3/uL 2.10 - 8.00 09/14 Specimen Type: BLOOD No comment entered. Ordering Provider: STACIE AMBRIZ Report Released Date/Time: Sep 14, 2024 11:05 AM Reporting Lab: [place] [facility] [address] [place] [address] Performing Lab: [place] [facility] [address] [place] [address] [facility] CBC EOSINOPHILS [#/VOLUME] IN BLOOD BY AUTOMATED COUNT 0.52 10*3/uL 0.00 - 0.60 09/14 Specimen Type: BLOOD No comment entered. Ordering Provider: STACIE AMBRIZ Report Released Date/Time: Sep 14, 2024 11:05 AM Reporting Lab: [place] [facility] [address] [place] [address] Performing Lab: [place] [facility] [address] [place] [address] [facility] CBC BASOPHILS [#/VOLUME] IN BLOOD BY AUTOMATED COUNT 0.09 10*3/uL 0.00 - 0.20 09/14 Specimen Type: BLOOD No comment entered. Ordering Provider: STACIE AMBRIZ Report Released Date/Time: Sep 14, 2024 11:05 AM Reporting Lab: [place] [facility] [address] [place] [address] Performing Lab: [place] [facility] [address] [place] [address] [facility] CBC IMMATURE GRANULOCYTE S/100 LEUKOCYTES IN BLOOD BY AUTOMATED COUNT 0.8 09/14 Specimen Type: BLOOD No comment entered. Ordering Provider: STACIE AMBRIZ Report Released Date/Time: Sep 14, 2024 11:05 AM Reporting Lab: [place] [facility] [address] [place] [address] Performing Lab: [place] [facility] [address] [place] [address] [facility] CBC IMMATURE GRANULOCYTE S [#/VOLUME] IN BLOOD BY AUTOMATED COUNT 0.04 10*3/uL 0.00 - 0.05 09/14 Specimen Type: BLOOD No comment entered. Ordering Provider: STACIE AMBRIZ Report Released Date/Time: Sep 14, 2024 11:05 AM Reporting Lab: [place] [facility] [address] [place] [id number] Performing Lab: [place] [facility] [address] [place] [address] [facility] CBC MANUAL DIFFERENTIA L COMMENT [INTERPRETA TION] IN BLOOD NARRATIVE NO 09/14 Specimen Type: BLOOD No comment entered. Ordering Provider: STACIE AMBRIZ Report Released Date/Time: Sep 14, 2024 11:05 AM Reporting Lab: [place] [facility] [address] [place] [id number] Performing Lab: [place] [facility] [address] [place] [address] [facility] CBC MANUAL DIFFERENTIA L PERFORMED [PRESENCE] IN BLOOD YES 09/14 Specimen Type: BLOOD No comment entered. Ordering Provider: STACIE AMBRIZ Report Released Date/Time: Sep 14, 2024 11:05 AM Reporting Lab: [place] [facility] [address] [place] [address] Performing Lab: [place] [facility] [address] [place] [address] [place] [facility] CHOLESTER OL PANEL (PB) CHOLESTEROL [MASS/VOLUM E] IN SERUM OR PLASMA 134 mg/dL 0 - 200 09/14 Specimen Type: PLASMA No comment entered. Ordering Provider: STACIE AMBRIZ Report Released Date/Time: Sep 14, 2024 11:05 AM Reporting Lab: [place] [facility] [address] [place] [address] [place] [address] Performing Lab: [place] [facility] [address] [place] [address] [facility] CHOLESTER OL PANEL (PB) TRIGLYCERID E [MASS/VOLUM E] IN SERUM OR PLASMA 66 mg/dL 0 - 150 09/14 Specimen Type: PLASMA No comment entered. Ordering Provider: STACIE AMBRIZ Report Released Date/Time: Sep 14, 2024 11:05 AM Reporting Lab: [place] [facility] [address] [place] [address] Performing Lab: [place] [facility] [address] [place] [address] [facility] CHOLESTER OL PANEL (PB) CHOLESTEROL IN LDL [MASS/VOLUM E] IN SERUM OR PLASMA BY CALCULATION 54.8 mg/dL 09/14 Specimen Type: PLASMA No comment entered. Ordering Provider: STACIE AMBRIZ Report Released Date/Time: Sep 14, 2024 11:05 AM Reporting Lab: [place] [facility] [address] [place] [address] Performing Lab: [place] [facility] [address] [place] [address] [facility] CHOLESTER OL PANEL (PB) CHOLESTEROL IN HDL [MASS/VOLUM E] IN SERUM OR PLASMA 66.0 mg/dL 40 09/14 H Specimen Type: PLASMA No comment entered. Ordering Provider: STACIE AMBRIZ Report Released Date/Time: Sep 14, 2024 11:05 AM Reporting Lab: [place] [facility] [address] [place] [address] Performing Lab: [place] [facility] [address] [place] [address] [place] [address] [place] [facility] CHOLESTER OL PANEL (PB) CHOLESTEROL IN HDL/CHOLEST VIJAY.TOTAL [MASS RATIO] IN SERUM OR PLASMA 49.3 25 09/14 Specimen Type: PLASMA No comment entered. Ordering Provider: STACIE AMBRIZ Report Released Date/Time: Sep 14, 2024 11:05 AM Reporting Lab: [place] [facility] [address] [place] [address] Performing Lab: [place] [facility] [address] [place] [address] [facility] COMPREHEN SIVE METABOLIC PANEL CREATININE [MASS/VOLUM E] IN SERUM OR PLASMA 0.94 mg/dL 0.7 - 1.3 09/14 Specimen Type: PLASMA No comment entered. Ordering Provider: STACIE AMBRIZ Report Released Date/Time: Sep 14, 2024 11:05 AM Reporting Lab: [place] [facility] [address] [place] [phone] Performing Lab: [place] [facility] [address] [place] [address] [facility] COMPREHEN SIVE METABOLIC PANEL UREA NITROGEN [MASS/VOLUM E] IN SERUM OR PLASMA 11 mg/dL 9 - 25 09/14 Specimen Type: PLASMA No comment entered. Ordering Provider: STACIE AMBRIZ Report Released Date/Time: Sep 14, 2024 11:05 AM Reporting Lab: [place] [facility] [address] [place] [phone] Performing Lab: [place] [facility] [address] [place] [address] [facility] COMPREHEN SIVE METABOLIC PANEL GLUCOSE [MASS/VOLUM E] IN SERUM OR PLASMA 84 mg/dL 72 - 99 09/14 Specimen Type: PLASMA No comment entered. Ordering Provider: STACIE AMBRIZ Report Released Date/Time: Sep 14, 2024 11:05 AM Reporting Lab: [place] [facility] [address] [place] [phone] Performing Lab: [place] [facility] [address] [place] [address] [facility] COMPREHEN SIVE METABOLIC PANEL SODIUM [MOLES/VOLU ME] IN SERUM OR PLASMA 136 meq/L 136 - 145 09/14 Specimen Type: PLASMA No comment entered. Ordering Provider: STACIE AMBRIZ Report Released Date/Time: Sep 14, 2024 11:05 AM Reporting Lab: [place] [facility] [address] [place] [address] Performing Lab: [place] [facility] [address] [place] [address] [facility] COMPREHEN SIVE METABOLIC PANEL POTASSIUM [MOLES/VOLU ME] IN SERUM OR PLASMA 3.4 meq/L 3.5 - 5 09/14 L Specimen Type: PLASMA No comment entered. Ordering Provider: STACIE AMBRIZ Report Released Date/Time: Sep 14, 2024 11:05 AM Reporting Lab: [place] [facility] [address] [place] [address] Performing Lab: [place] [facility] [address] [place] [address] [facility] COMPREHEN SIVE METABOLIC PANEL CHLORIDE [MOLES/VOLU ME] IN SERUM OR PLASMA 101 meq/L 98 - 107 09/14 Specimen Type: PLASMA No comment entered. Ordering Provider: STACIE AMBRIZ Report Released Date/Time: Sep 14, 2024 11:05 AM Reporting Lab: [place] [facility] [address] [place] [address] Performing Lab: [place] [facility] [address] [place] [address] [facility] COMPREHEN SIVE METABOLIC PANEL CARBON DIOXIDE, TOTAL [MOLES/VOLU ME] IN SERUM OR PLASMA 23 meq/L 22 - 31 09/14 Specimen Type: PLASMA No comment entered. Ordering Provider: STACIE AMBRIZ Report Released Date/Time: Sep 14, 2024 11:05 AM Reporting Lab: [place] [facility] [address] [place] [address] Performing Lab: [place] [facility] [address] [place] [address] [facility] COMPREHEN SIVE METABOLIC PANEL CALCIUM [MASS/VOLUM E] IN SERUM OR PLASMA 8.3 mg/dL 8.4 - 10.4 09/14 L Specimen Type: PLASMA No comment entered. Ordering Provider: STACIE AMBRIZ Report Released Date/Time: Sep 14, 2024 11:05 AM Reporting Lab: [place] [facility] [address] [place] [address] Performing Lab: [place] [facility] [address] [place] [address] [facility] COMPREHEN SIVE METABOLIC PANEL PROTEIN [MASS/VOLUM E] IN SERUM OR PLASMA 7.0 g/dL 6 - 8.6 09/14 Specimen Type: PLASMA No comment entered. Ordering Provider: STACIE AMBRIZ Report Released Date/Time: Sep 14, 2024 11:05 AM Reporting Lab: [place] [facility] [address] [place] [phone] Performing Lab: [place] [facility] [address] [place] [address] [facility] COMPREHEN SIVE METABOLIC PANEL ALBUMIN [MASS/VOLUM E] IN SERUM OR PLASMA 3.7 g/dL 3.4 - 5 09/14 Specimen Type: PLASMA No comment entered. Ordering Provider: STACIE AMBRIZ Report Released Date/Time: Sep 14, 2024 11:05 AM Reporting Lab: [place] [facility] [address] [place] [address] Performing Lab: [place] [facility] [address] [place] [address] [facility] CB COMPREHEN SIVE METABOLIC PANEL BILIRUBIN.T OTAL [MASS/VOLUM E] IN SERUM OR PLASMA 0.5 mg/dL 0.2 - 1.2 09/14 Specimen Type: PLASMA No comment entered. Ordering Provider: STACIE AMBRIZ Report Released Date/Time: Sep 14, 2024 11:05 AM Reporting Lab: [place] [facility] [address] [place] [address] Performing Lab: [place] [facility] [address] [place] [address] [facility] COMPREHEN SIVE METABOLIC PANEL ALKALINE PHOSPHATASE [ENZYMATIC ACTIVITY/VO LUME] IN SERUM OR PLASMA 139 U/L 40 - 150 09/14 Specimen Type: PLASMA No comment entered. Ordering Provider: STACIE AMBRIZ Report Released Date/Time: Sep 14, 2024 11:05 AM Reporting Lab: [place] [facility] [address] [place] [address] Performing Lab: [place] [facility] [address] [place] [address] [facility] COMPREHEN SIVE METABOLIC PANEL ASPARTATE AMINOTRANSF ERASE [ENZYMATIC ACTIVITY/VO LUME] IN SERUM OR PLASMA 63 U/L 5 - 34 09/14 H Specimen Type: PLASMA No comment entered. Ordering Provider: STACIE AMBRIZ Report Released Date/Time: Sep 14, 2024 11:05 AM Reporting Lab: [place] [facility] [address] [place] [address] Performing Lab: [place] [facility] [address] [place] [address] [facility] COMPREHEN SIVE METABOLIC PANEL ALANINE AMINOTRANSF ERASE [ENZYMATIC ACTIVITY/VO LUME] IN SERUM OR PLASMA 32 U/L 8 - 40 09/14 Specimen Type: PLASMA No comment entered. Ordering Provider: STACIE AMBRIZ Report Released Date/Time: Sep 14, 2024 11:05 AM Reporting Lab: [place] [facility] [address] [place] [address] Performing Lab: [place] [facility] [address] [place] [address] [facility] CB COMPREHEN SIVE METABOLIC PANEL GLOMERULAR FILTRATION RATE/1.73 SQ M.PREDICTED [VOLUME RATE/AREA] IN SERUM, PLASMA OR BLOOD BY CREATININE- BASED FORMULA (CKD-EPI 2020) 81 09/14 Specimen Type: PLASMA No comment entered. Ordering Provider: STACIE AMBRIZ Report Released Date/Time: Sep 14, 2024 11:05 AM Reporting Lab: [place] [facility] [address] [place] [address] Performing Lab: [place] [facility] [address] [place] [address] [facility] FOLATE (PB) FOLATE [MASS/VOLUM E] IN SERUM OR PLASMA 10.3 ng/mL 7 - 20 09/14 Specimen Type: SERUM No comment entered. Ordering Provider: STACIE AMRBIZ Report Released Date/Time: Sep 14, 2024 11:05 AM Reporting Lab: [place] [facility] [address] [place] [address] [place] [address] Performing Lab: [place] [facility] [address] [place] [address] [place] [address] CBOC HGA1C HEMOGLOBIN A1C/HEMOGLO BIN.TOTAL IN BLOOD 5.3 4.0 - 6.0 09/14 Specimen Type: BLOOD No comment entered. Ordering Provider: STACIE AMBRIZ Report Released Date/Time: Sep 14, 2024 11:05 AM Reporting Lab: [place] [facility] [address] [place] [address] Performing Lab: [place] [facility] [address] [place] [address] [facility] MAGNESIUM MAGNESIUM [MASS/VOLUM E] IN SERUM OR PLASMA 1.76 mg/dL 1.6 - 2.6 09/14 Specimen Type: PLASMA No comment entered. Ordering Provider: STACIE AMBRIZ Report Released Date/Time: Sep 14, 2024 11:05 AM Reporting Lab: [place] [facility] [address] [place] [address] Performing Lab: [place] [facility] [address] [place] [address] [facility] TSH (MA-PB) THYROTROPIN [UNITS/VOLU ME] IN SERUM OR PLASMA 9.362 u[IU]/mL 0.47 - 5 09/14 H Specimen Type: SERUM No comment entered. Ordering Provider: STACIE AMBRIZ Report Released Date/Time: Sep 14, 2024 11:05 AM Reporting Lab: [place] [facility] [address] [place] [address] Performing Lab: [place] [facility] [address] [place] [address] [facility] TSH (MA-PB) THYROXINE (T4) FREE [MASS/VOLUM E] IN SERUM OR PLASMA 0.92 ng/dL 09/14 Specimen Type: SERUM No comment entered. Ordering Provider: STACIE AMBRIZ Report Released Date/Time: Sep 14, 2024 11:05 AM Reporting Lab: [place] [facility] [address] [place] [address] Performing Lab: [place] [facility] [address] [place] [address] [facility] VITAMIN D, 25-HYDROX Y 25-HYDROXYV ITAMIN D3 [MASS/VOLUM E] IN SERUM OR PLASMA 35.1 ng/mL 30 - 96 09/14 Specimen Type: SERUM No comment entered. Ordering Provider: STACIE AMBRIZ Report Released Date/Time: Sep 14, 2024 11:05 AM Reporting Lab: [place] [facility] [address] [place] [address] Performing Lab: [place] [facility] [address] [place] [address] [facility] VITAMIN B1 THIAMINE [MOLES/VOLU ME] IN SERUM OR PLASMA 14 nmol/L 8 - 30 02/15 Specimen Type: PLASMA Comment: Vitamin supplementa tion within 24 hours prior to blood draw may affect the accuracy of the results. This test was developed and its analytical performance characteris tics have been determined by [employer] [place], [place]. It has not been cleared or approved by the U.S. Food and Drug Administrat ion. This assay has been validated pursuant to the CLIA regulations and is used for clinical purposes. Test Performed by [employer], [employer] [facility], [address] [place], [place] Shan Knott M.D., Ph.D., Director of Laboratorie s , CLIA [id number] Ordering Provider: STACIE AMBRIZ Report Released Date/Time: Feb 09, 2024 06:57 AM Reporting Lab: [place] [facility] [address] [place] [address] Performing Lab: [place] [facility] [address] [facility] [address] [place] [facility] Vital Signs Combined list of inpatient and outpatient Vital Signs from Department of Defense and Veterans Affairs, ranging from 12 months to all on record, depending upon the facility. Vital Sign Value Date Comments Source SYSTOLIC BLOOD PRESSURE 137 07/09/2024 11:54:00 [place] [facility] DIASTOLIC BLOOD PRESSURE 53 07/09/2024 11:54:00 [place] [facility] PULSE OXIMETRY 84 07/09/2024 11:54:[address] [facility] [place] [facility] PULSE 88 07/09/2024 11:54:00 [place] [facility] SYSTOLIC BLOOD PRESSURE 122 03/22/2024 13:10:00 [place] [facility] DIASTOLIC BLOOD PRESSURE 72 03/22/2024 13:10:00 [place] [facility] PULSE OXIMETRY 97 03/22/2024 13:10:[address] [facility] [place] [facility] TEMPERATURE 97.6 03/22/2024 13:10:00 [place] [facility] PULSE 76 03/22/2024 13:10:00 [place] [facility] SYSTOLIC BLOOD PRESSURE 113 02/02/2024 11:20:00 [place] [facility] DIASTOLIC BLOOD PRESSURE 66 02/02/2024 11:20:00 [place] [facility] PULSE OXIMETRY 94 02/02/2024 11:20:[address] [facility] [place] [facility] TEMPERATURE 97.4 02/02/2024 11:20:00 [place] [facility] PULSE 65 02/02/2024 11:20:00 [place] [facility] SYSTOLIC BLOOD PRESSURE 111 01/26/2024 13:48:39 [place] [facility] DIASTOLIC BLOOD PRESSURE 65 01/26/2024 13:48:39 [place] [facility] PULSE OXIMETRY 97 01/26/2024 13:48:[address] [facility] [place] [facility] WEIGHT 158.4 01/26/2024 13:48:39 [place] [facility] BMI 23 kg/m2 01/26/2024 13:48:39 [place] [facility] TEMPERATURE 98 01/26/2024 13:48:39 [place] [facility] PULSE 71 01/26/2024 13:48:39 [facility] RESPIRATION 21 01/26/2024 13:48:39 [facility] Encounters Combined list of: 1) Encounters from Department of Veterans Affairs facilities going backup to the last 18 months, not all VA inpatient encounters are included; 2) Encounters from the Department of Defense facilities going backup to 280 months. Location Location Details Encounter Type Encounter Number Reason For Visit Attending Provider ADM Date DC Date Status Disposition Source [facility] ACUPUNCT W/O STIMUL 15 MIN [id number] Diagnos is: ICD-10- CM M79.671 Pain in right foot GORDY LEE R 07/07 [facility] En[facility] [id number] [facility] ACUPUNCT W/O STIMUL 15 MIN [id number] Diagnos is: ICD-10- CM M79.671 Pain in right foot GORDY LEE R 07/14 [facility] Outpatient Encounter [id number] [facility] ACUPUNCT W/O STIMUL 15 MIN [id number] Diagnos is: ICD-10- CM M79.671 Pain in right foot GORDY LEE R [facility] Outpatient Encounter [id number] 07/28 [facility] En[facility] [id number] 08/03 [facility] OFF/OP EST SEPTEMBER X REQ PHY/QHP [id number] Diagnos is: ICD-10- CM R05.1 Acute cough Debra UREÑA [facility]OMEKA [facility] OFF/OP EST MAY X REQ PHY/QHP [id number] Diagnos is: ICD-10- CM R05.1 Acute cough [facility]ORDY LEE R 08[facility]24 [facility] OFFICE O/P EST LOW 20 MIN [id number] Diagnos is: ICD-10- CM J01.90 Acute sinusit is, unspeci AILEEN Tran G 08/24 [facility] OFF/OP EST MAY X REQ PHY/QHP [id number] Diagnos is: ICD-10- CM R05.1 Acute cough Debra UREÑA TOMEKA 08/25 [facility] OFFICE O/P EST LOW 20 MIN [id number] Diagnos is: ICD-10- CM J02.9 Acute pharyng itis, unspeci donis AILEEN AMBRIZ G 08/25 [facility] Outpatient Encounter [id number] 08/31 [facility] Outpatient Encounter [id number] 09/05 [facility] ACUPUNCT W/O STIMUL 15 MIN [id number] Diagnos is: ICD-10- CM M79.672 Pain in left foot GORDY LEE R 09/14 [facility] Outpatient Encounter [id number] 09/21 [facility] [place] [facility] ACUPUNCT W/O STIMUL 15 MIN [id number] Diagnos is: ICD-10- CM M79.671 Pain in right foot GORDY LEE R 09/21 [facility] Outpatient Encounter [id number] 09/26 [facility] Outpatient Encounter [id number] 09/28 [facility] ACUPUNCT W/O STIMUL 15 MIN [id number] Diagnos is: ICD-10- CM M79.671 Pain in right foot GORDY LEE R 09/28 [facility] Outpatient Encounter [id number] 10/05 [facility] ACUPUNCT W/O STIMUL 15 MIN [id number] Diagnos is: ICD-10- CM M79.671 Pain in right foot GORDY LEE 10/05 [facility] Outpatient Encounter [id number] 10/09 [facility] Out[facility] Encounter [id number] [phone] 10/10 [facility] En[facility] [phone] 10/12 [facility] CB OFF/OP EST SEPTEMBER X REQ PHY/QHP 42216-2.65 [id number] Diagnos is: ICD-10- CM W19.XXX A Unspeci fied fall, initial encount er KEITH BOB 10/13 [place] [facility] OFFICE O/P EST MOD 30 MIN 03018-4.65 [id number] Diagnos is: ICD-10- CM S01.119 A Lacerat ion w/o fb of unsp eyelid and periocu lar area, init AILEEN AMBRIZ STERody G 10/13 [place] [facility] [place] [facility] OFF/OP EST MAY X REQ PHY/QHP 72013-9.65 [id number] Diagnos is: ICD-10- CM S81.809 A Unspeci fied open wound, unspeci fied lower leg, init encntr KEITH BOB A 10/16 [place] [facility] [place] [facility] OFF/OP EST MAY X REQ PHY/QHP 06150-4.65 [id number] Diagnos is: ICD-10- CM S80.811 S Abrasio n, right lower leg, sequela CUSTRED,TO RRI J 10/19 [place] [facility] ACUPUNCT W/O STIMUL 15 MIN 79979-2.65 [id number] Diagnos is: ICD-10- CM M79.671 Pain in right foot GORDY LEE 10/19 [place] [facility] [place] [facility] OFF/OP EST MAY X REQ PHY/QHP 97158-9.65 [id number] Diagnos is: ICD-10- CM Z48.02 Encount er for removal of sutures KEITH BOB 10/24 [facility] Outpatient Encounter [id number] [phone] 10/25 [facility] Encounter 70775-3.65 [phone] Beth MONSON 10/25 [facility] OFF/OP EST MAY X REQ PHY/QHP 53268-6.65 [id number] Diagnos is: ICD-10- CM S81.001 D Unspeci fied open wound, right knee, subsequ ent encount KEITH Landa A 10/26 [place] [facility] ACUPUNCT W/O STIMUL 15 MIN 49746-2.65 [id number] Diagnos is: ICD-10- CM M79.671 Pain in right foot GORDY LEE R 10/26 [facility] OFFICE O/P EST LOW 20 MIN 91909-4.65 [id number] 273 Diagnos is: ICD-10- CM S81.801 S Unspeci fied open wound, right lower leg, sequela AILEEN AMBRIZ G 10/26 [facility] Outpatient Encounter 11376-6.65 [id number] 10/31 [facility] Out[facility] Encounter 18105-2.65 [id number] 11/02 [facility] Outpatient Encounter 00646-0.65 [id number] 11/07 [facility] ACUPUNCT W/O STIMUL 15 MIN 02055-3.65 [id number] Diagnos is: ICD-10- CM M79.671 Pain in right foot GORDY LEE R 11/09 [facility] THERAPEUTI C EXERCISES 15484-8.65 [id number] Diagnos is: ICD-10- CM M62.81 Muscle weaknes s (genera lized) TEJ CAMARILLO A 11/10 [facility] ACUPUNCT W/O STIMUL 15 MIN 13838-6.65 [id number] Diagnos is: ICD-10- CM M79.671 Pain in right foot GORDY LEE 11/23 [facility] Outpatient Encounter 30040-0.65 [id number] 8 11/24 [facility] Outpatient Encounter 54224-7.65 [id number] 4 11/28 [facility] Outpatient Encounter 86528-5.65 [id number] 9 CHERISEAILEEN MELISSA N 12/[address] [facility] Outpatient Encounter 11699-7.65 [id number] Diagnos is: ICD-10- CM J20.9 Acute bronchi tis, unspeci KEITH Slaughter A 12/07 [facility] Outpatient Encounter 71113-5.65 [id number] 7 12/08 [facility] 12051-5.65 [id number] 7 CHERISEAILEEN MELISSA N 12/10 [facility] OFF/OP EST MAY X REQ PHY/QHP 22038-4.65 [id number] Diagnos is: ICD-10- CM R06.00 Dyspnea , unspeci KEITH Slaughter A 12/11 [facility] OFFICE O/P EST MOD 30 MIN 08291-3.65 [id number] 425 Diagnos is: ICD-10- CM L01.00 Impetig o, unspeci AILEEN Tran 12/11 [facility] Outpatient Encounter [id number] [id number] 5 12/12 [facility] OFFICE O/P EST MOD 30 MIN 66127-6.65 [id number] 362 Diagnos is: ICD-10- CM Z09 Encntr for f/u exam aft trtmt for cond oth than malig neoplm CHRISTAL AMBRIZZachary CALDERÓN G 12/13 [facility] Outpatient Encounter 37164-6.65 [id number] 12/14 [facility] Outpatient Encounter 43973-2.65 [id number] 4 12/[address] [facility] ACUPUNCT W/O STIMUL 15 MIN 38007-4.65 [id number] Diagnos is: ICD-10- CM M79.671 Pain in right foot GORDY LEE Kaye 12/28 [facility] Outpatient Encounter 73154-3.65 [id number] 8 AILEEN AMBRIZ G 01/05 [facility] Encounter 53538-3.65 [id number] 5 01/09 [facility] Out[facility] Encounter 78307-3.65 [id number] 4 01/12 [facility] Out[facility] Encounter 57120-2.65 [id number] 8 STEPHANIE VERNON RIL L 01/18 [facility] Out[facility] Encounter 73198-3.65 [id number] 3 STEPHANIE VERNON RIL L 01/[address] 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 KEITH Slaughter 01/22 [facility] OFF/OP EST MAY X REQ PHY/QHP 24382-0.65 [id number] 196 Diagnos is: ICD-10- CM R52 Pain, unspeci fied KEITH BOB A 01/25 [facility] Outpatient Encounter 37488-8.65 [id number] 01/25 [facility] Outpatient Encounter 82381-4.65 [id number] 4 01/25 [facility] [place] Outpatient Encounter 69381-6.65 [id number] 01/30 [place] [facility] Outpatient Encounter 19470-2.65 [id number] 1 02/01 [facility] EST MAY X REQ PHY/QHP 92053-1.65 [id number] Diagnos is: ICD-10- CM M54.50 Low back pain, unspeci fied CUSTRED,TO RRI J 02/01 [facility] OFFICE O/P EST MOD 30 MIN 79400-4.65 [id number] Diagnos is: ICD-10- CM 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 AILEEN AMBRIZ 02/01 [facility] Outpatient Encounter 44212-6.65 [id number] 2 02/01 [facility] Outpatient Encounter 58271-3.65 [id number] 3 AILEEN AMBRIZ 02/02 [facility] Outpatient Encounter 50372-9.65 [id number] AILEEN AMBRIZ 02/08 [facility] Outpatient Encounter 72321-6.65 [id number] 8 02/09 [facility] Encounter 53980-8.65 [id number] 5 02/13 [facility] ACUPUNCT W/O STIMUL 15 MIN [id number] [id number] Diagnos is: ICD-10- CM M79.671 Pain in right foot GORDY LEE R 02/15 [facility] Outpatient Encounter 62325-1.65 [id number] 2 02/20 [facility] Encounter 99765-0.65 [id number] 5 02/22 [facility] ACUPUNCT W/O STIMUL 15 MIN 29187-1.65 [id number] Diagnos is: ICD-10- CM M79.671 Pain in right foot GORDY LEE R 02/22 [facility] Outpatient Encounter 57142-3.65 [id number] 8 02/23 [facility] Outpatient Encounter 85866-7.65 [id number] 02/23 [facility] Outpatient Encounter 12894-5.65 [id number] 1 03/06 [facility] Outpatient Encounter 83297-5.65 [id number] 03/14 [facility] OFF/OP EST SEPTEMBER X REQ PHY/QHP 46388-6.65 [id number] 606 Diagnos is: ICD-10- CM Z23 Encount er for immuniz ation CUSTRED,TO RRI J 03/15 [facility] OFFICE O/P EST MOD 30 MIN 27879-4.65 [id number] Diagnos is: ICD-10- CM Z00.01 Encount er for general adult medical exam w abnorma l finding s AILEEN AMBRIZ G 03/22 [facility] ACUPUNCT W/O STIMUL 15 MIN 79355-6.65 [id number] Diagnos is: ICD-10- CM M79.671 Pain in right foot GORDY LEE R 03/22 [facility] [place] [facility] IMG RTA DETC/MNTR DS PHY/QHP 79796-1.65 [id number] 448 Diagnos is: ICD-10- CM Z13.9 Encount er for screeni ng, unspeci fied KIRSTY HAMMER S 03/22 [place] [facility] Outpatient Encounter [id number] [id number] MAKSIM DUMONT 03/22 [facility] Outpatient Encounter 64461-2.65 [id number] 5 03/[address] [facility] FUNDUS PHOTOGRAPH Y W/I&R 39530-1.65 [id number] Diagnos is: ICD-10- CM Z13.5 Encount er for screeni ng for eye and ear disorde rs MAKSIM DUMONT L 03/22 [facility] Outpatient Encounter 91922-6.65 [id number] 5 03/26 [facility] Out[facility] Encounter 33984-1.65 [id number] 8 03/27 [facility] Outpatient Encounter 05867-9.65 [id number] 6 04/02 [facility] Outpatient Encounter 88863-4.65 [id number] 6 04/06 [facility] Outpatient Encounter 55559-8.65 [id number] 9 04/10 [facility] Outpatient Encounter 06641-3.65 [id number] 3 04/23 [facility] Outpatient Encounter 18875-9.65 [id number] 4 05/02 [facility] Outpatient Encounter 62283-2.65 [id number] 0 STEPHANIE VERNON 05/07 [facility] [place] [facility] Outpatient Encounter 60861-0.65 [id number] 05/07 [place] [facility] ACUPUNCT W/O STIMUL 15 MIN 26146-2.65 [id number] Diagnos is: ICD-10- CM M79.671 Pain in right foot GORDY LEE 05/10 [facility] HC PRO PHONE CALL 5-10 MIN 15266-6.65 [id number] Diagnos is: ICD-10- CM 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.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 JUAN Gtz 05/11 [facility] Outpatient Encounter 29642-2.65 [id number] 05/14 [facility] Outpatient Encounter 33872-1.65 [id number] 05[facility] Out[facility] Encounter 91054-8.65 [id number] 8 05/25 [facility] Outpatient Encounter 48857-9.65 [id number] 2 05/28 [facility] Outpatient Encounter 45750-5.65 [id number] 1 05/28 [facility] Outpatient Encounter 45001-9.65 [id number] 1 05/31 [facility] Outpatient Encounter 96601-7.65 [id number] 2 06/01 [facility] Outpatient Encounter 07317-3.65 [id number] 2 06/04 [facility] Outpatient Encounter 91792-3.65 [id number] 2 06/05 [facility] Outpatient Encounter 28255-8.65 [id number] 06/[address] [facility] Outpatient Encounter 81556-6.65 [id number] 3 06/12 [facility] Out[facility] Encounter 18971-3.65 [id number] 8 06/13 [facility] Outpatient Encounter 92067-1.65 [id number] 1 06/19 [facility] Outpatient Encounter 41872-5.65 [id number] 9 STEPHANIE VERNON 06/22 [facility] Outpatient Encounter 80730-4.65 [id number] 3 STEPHANIE VERNON RIL L 07/02 [facility] Outpatient Encounter 88892-8.65 [id number] 9 07/04 [facility] Outpatient Encounter 17391-8.65 [id number] 8 07/04 [facility] OFF/OP EST SEPTEMBER X REQ PHY/QHP 52581-2.65 [id number] Diagnos is: ICD-10- CM W19.XXX A Unspeci fied fall, initial encount er BENJIE QIU R 07/09 [facility] [id number] [id number] 07/09 [facility] Outpatient Encounter 89750-8.65 [id number] BENJIE QIU R 07/09 [facility] Outpatient Encounter 37815-3.65 [id number] 07/10 [place] [facility] Outpatient Encounter 19152-4.65 [id number] 07/10 [facility] Outpatient Encounter 04963-3.65 [id number] 2 07/11 [facility] Outpatient Encounter 94402-2.65 [id number] 07/12 [place] [facility] Outpatient Encounter 59801-5.65 [id number] 5 07/13 [facility] Out[facility] Encounter 86347-2.65 [id number] 0 07/13 [facility] Outpatient Encounter 06841-8.65 [id number] 7 07/18 [facility] Out[facility] Encounter 48072-8.65 [id number] 4 07/20 [facility] Out[facility] Encounter 56435-7.65 [id number] 1 07/23 [facility] Outpatient Encounter 28818-9.65 [id number] 0 07/26 [facility] Encounter 75935-9.65 [id number] 2 07/27 [facility] Out[facility] Encounter 28436-3.65 [id number] 3 07/30 [facility] Outpatient Encounter 73299-7.65 [id number] 0 07/30 [facility] Outpatient Encounter 78752-5.65 [id number] 5 08/01 [facility] Outpatient Encounter 87893-2.65 [id number] 6 08/02 [facility] Outpatient Encounter 82740-0.65 [id number] 4 08/05 [facility] NURSING ASSESSMENT /EVALUATN 35258-4.65 [id number] Diagnos is: ICD-10- CM Z02.89 Encount er for other adminis trative examina tions JUAN ACKERMAN YARON Alda 08/09 [facility] OFFICE O/P EST MOD 30 MIN 23390-8.65 [id number] Diagnos is: ICD-10- CM R53.1 AILEEN Cody Mayo 08/09 [facility] PH1 ASSMT&MGMT NQHP 5-10 28393-4.65 [id number] Diagnos is: ICD-10- CM Z02.89 Encount er for other adminis trative examina tions CHEWPEBBLES TOLEDOKevin Fine 08/13 [facility] Outpatient Encounter 37444-2.65 [id number] 08/14 [facility] Encounter 13227-0.65 [id number] 0 08/16 [facility] 87208-1.65 [id number] 9 08/20 [facility] [place] Outpatient Encounter 10508-8.65 [id number] 08/20 [place] [facility] PH1 ASSMT&MGMT NQHP 11-20 56550-0.65 [id number] Diagnos is: ICD-10- CM Z74.1 Need for assista nce with persona l CON[facility]TA Crenshaw 08/21 [facility] Outpatient Encounter 07144-0.65 [id number] 1 [facility] NAVA 08/22 [facility] Outpatient Encounter 97573-3.65 [id number] 7 08/22 [facility] En[facility] 09967-7.65 [id number] 6 08/22 [facility] Encounter 93151-1.65 [id number] 3 08/24 [facility] PH1 ASSMT&MGMT NQHP 11-20 45165-6.65 [id number] Diagnos is: ICD-10- CM Z74.1 Need for assista nce with CONCETTA uHggins 08/27 [facility] Outpatient Encounter 63038-8.65 [id number] 7 08/27 [facility] Out[facility] Encounter 32486-5.65 [id number] 8 08/28 [facility] En[facility] 46352-5.65 [id number] 1 09/06 [facility] Encounter 56541-6.65 [id number] 6 09/07 [facility] Out[facility] Encounter 85236-4.65 [id number] 5 09/09 [facility] Outpatient Encounter 07490-1.65 [id number] 5 09/14 [facility] OFF/OP EST SEPTEMBER X REQ PHY/QHP 76003-8.65 [id number] Diagnos is: ICD-10- CM Z71.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 JUAN ACKERMAN 09/14 [facility] Outpatient Encounter [id number] [id number] 09/14 [facility] Out[facility] Encounter 82637-6.65 [id number] 8 09/18 [facility] Outpatient Encounter 59098-9.65 [id number] 5 09/19 [facility] Outpatient Encounter 82082-4.65 [id number] 1 09/26 [facility] Outpatient Encounter 24915-9.65 [id number] 9 10/03 [facility] Outpatient Encounter 04963-5.65 [id number] 2 10/04 [facility] Outpatient Encounter 60030-6.65 [id number] 4 10/05 [facility] Outpatient Encounter 44129-7.65 [id number] 8 10/10 [facility] Outpatient Encounter 18766-5.65 [id number] 0 TEDDY STALLINGS 11/08 [facility] Outpatient Encounter 68093-6.65 [id number] 7 STEPHANIE VERNON 11/26 [facility] Outpatient Encounter 08415-8.65 [id number] 8 12/03 [facility] Outpatient Encounter 58869-8.65 [id number] 4 12/24 [facility] [place] [facility] Outpatient Encounter 43751-5.65 [id number] 12/28 [place] [facility] Outpatient Encounter 15604-1.65 [id number] 4 12/31 [facility] Outpatient Encounter 24591-2.65 [id number] 7 12/31 [facility] Outpatient Encounter 92897-9.65 [id number] 7 01/01 [facility] Social History Combined list of available smoking, tobacco, and other social history from Department of Defense and Veterans Affairs facilities. Social History Type Response Date Comment Source Tobacco smoking status DEIS VA-TOBACCO USER EVERY DAY 03/22/2024 [facility] History of tobacco use VA-TOBACCO USE ADVICE 03/22/2024 [facility] History of tobacco use VA-TOBACCO FORMER USER 12/21/2021 [facility] History of tobacco use VA-TOBACCO USER EVERY DAY 12/22/2020 [facility] History of tobacco use VA-TOBACCO QUIT < 1 YEAR 12/11/2018 [facility] History of tobacco use TOBACCO USER OFFERED MEDS 08/12/2017 [facility] History of tobacco use TOBACCO OFFERED STOP SMOKING CLINIC 03/20/2015 [facility] History of tobacco use TOBACCO OFFERED STOP SMOKING CLINIC 01/14/2014 [facility] History of tobacco use TOBACCO OFFERED STOP SMOKING CLINIC 11/02/2012 [facility] History of tobacco use TOBACCO OFFERED PT MEDS (PROVIDER) 03/20/2012 [facility] History of tobacco use TOBACCO OFFERED PT MEDS (PROVIDER) 11/29/2011 [facility] History of tobacco use LIFETIME NON-USER OF TOBACCO 09/25/2010 [facility] History of tobacco use QUIT TOBACCO >12 MO and <7 YRS AGO 09/08/2009 [facility] History of tobacco use TOBACCO OFFERED STOP SMOKING CLINIC 11/11/2008 do not want [facility] History of tobacco use CURRENT TOBACCO USER 04/05/2008 [facility] History of tobacco use CURRENT TOBACCO USER 09/16/2007 [facility] History of tobacco use TOBACCO OFFERED STOP SMOKING CLINIC 05/12/2007 do not want to quit smoking [facility] History of tobacco use CURRENT TOBACCO USER 11/28/2006 [facility] History of tobacco use CURRENT TOBACCO USER 08/22/2006 [facility] G[facility] History of tobacco use CURRENT TOBACCO USER 07/28/2006 [facility] History of tobacco use CURRENT TOBACCO USER 04/14/2006 ILIA GARCIA [facility] Plan of Care List of future care activities from [facility] facilities. Additional future care activities may be listed in the Assessment and Plan section. Date/Time Care Activity Care Activity Detail Facili ty 03/19/2025 AMBULATORY - MEDICINE AMBULATORY - MEDICI NE [facility] Advance Directives List of completed, amended, or rescinded Advance Directives on record at [facility] facilities. An actual copy of the Directive is not included. Date Advance Directive Provider Source 11/24/2016 ADVANCE DIRECTIVE SHAYNA SHEN [facility] 05/21/2011 ADVANCE DIRECTIVE DISCUSSION ADAM SEYMOUR [facility] 2011 ADVANCE DIRECTIVE DISCUSSION ADAM SEYMOUR [facility] 05/07/2011 ADVANCE DIRECTIVE DISCUSSION ADAM SEYMOUR [facility]
--- OUTSIDE RECORDS SUMMARY | 2025-01-03 08:17 | XMS_ITS | Continuity of Care Document ---
Author Name [facility] Organization [facility] Care Team Providers Care Manager Dental Name Role Phone [facility] Unavailable Unavailable Problems Combined list of problems from Department of Defense and Veterans Affairs facilities. It does not include entries that were removed or entered in error. Problem Status Onset Date Problem Type Date of Resolution Comments Source Abnormal gait Active Condition [facility] Actinic keratosis (SNOMED CT 225459796) Active Condition [facility] AF - Atrial Fibrillation (SCT 87187361) Active Condition Aug 19, 2022 Entered By: SUMMER KAUFMAN Comment: New Onset 07/2022. 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 [facility] Cholelithiasis Active Condition September Entered By: SUMMER KAUFMAN Comment: Incidental US finding 09/2022. 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 [facility] Cognitive decline Active Condition [facility] compression fractures thoracic vertebra Active Condition [facility] Environmental allergy Active Condition [facility] Essential hypertension (SNOMED CT 01009350) Active Condition [facility] Hoarse (SNOMED CT 64439641) Active Condition [facility] Hyperlipidemia (SNOMED CT 19429268) Active Condition [facility] Osteoarthritis (SNOMED CT 308685302) Active Condition [facility] Pain in left foot Active Condition [facility] Pain in right foot Active Condition [facility] Personal History of Noncompliance with Medical Treatment, Presenting Hazards to Active Condition [facility] PVD - peripheral vascular disease Active Condition October 19 2 Entered By: SUMMER KAUFMAN Comment: US 10/18 shows JAMES 0.7 on left, and on right, total occlusion of dorsalis pedis and posterior tibial arteries. [facility] Spinal Stenosis of Lumbar Region (SCT 74395768) Active Condition [facility] Tobacco Use Disorder * (ICD-9-CM 305.1) Active Condition [place] [facility] Vitamin D deficiency Active Condition [facility]amp (SNOMED CT 44364425) Inactive Condition 08/27/2021 [facility] Encounters for other Specified Administrative Purpose (ICD-9-CM V68.89) Inactive Condition 12/22/2020 [facility] [facility] Laboratory Procedures (ICD-9-CM V72.6) Inactive Condition 08/27/2021 [facility] Personal History of Tobacco Use (ICD-9-CM V15.82) Inactive Condition 08/27/2021 [facility] [facility] Routine General Medical Examination at a Health Care Facility * (ICD-9-CM V70.0) Inactive Condition 12/22/2020 [facility] Diagnosis: ICD-10-CM Z71.89 Other specified counseling Active Diagnosis [facility] Diagnosis: ICD-10-CM Z74.1 Need for assistance with personal care Active Diagnosis [facility] Diagnosis: ICD-10-CM Z02.89 Encounter for other [...] screening, unspecified Active Diagnosis [facility] Diagnosis: ICD-10-CM Z00.01 Encounter for general adult medical exam w abnormal findings Active Diagnosis [facility] Diagnosis: ICD-10-CM Z23 Encounter for immunization Active Diagnosis [facility] Diagnosis: ICD-10-CM 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 Diagnosis [facility] Diagnosis: ICD-10-CM M54.50 Low back pain, unspecified Active Diagnosis [facility] Diagnosis: ICD-10-CM R52 Pain, unspecified Active Diagnosis [facility] Diagnosis: ICD-10-CM Z71.9 Counseling, unspecified Active Diagnosis [facility] Diagnosis: ICD-10-CM Z09 Encntr for f/u exam aft trtmt for cond oth than malig neoplm Active Diagnosis [facility] Diagnosis: ICD-10-CM L01.00 Impetigo, unspecified Active Diagnosis [facility] [facility] Diagnosis: ICD-10-CM R06.00 Dyspnea, unspecified Active Diagnosis [facility] Diagnosis: ICD-10-CM J20.9 Acute bronchitis, unspecified Active Diagnosis [facility] Diagnosis: ICD-10-CM M62.81 Muscle weakness (generalized) Active Diagnosis [facility] Diagnosis: ICD-10-CM S81.801S Unspecified open wound, right lower leg, sequela Active Diagnosis [facility] Diagnosis: ICD-10-CM S81.001D Unspecified open wound, right knee, subsequent encounter Active Diagnosis [facility] Diagnosis: ICD-10-CM Z48.02 Encounter for [...] ICD-10-CM J02.9 Acute pharyngitis, unspecified Active Diagnosis [facility] Diagnosis: ICD-10-CM R05.1 Acute cough Active Diagnosis [facility] Diagnosis: ICD-10-CM J01.90 Acute sinusitis, unspecified Active Diagnosis [facility] Medications Combined list of outpatient medications [...] (APAP) FROM ALL MEDS. ORAL ACTIVE 01/26/2025 [id number] ELLEN LEE 2023 400 [facility] ALBUTEROL SO4 0.083% INHL,3ML INHALE 1 VIAL (2.5MG/3 ML) BY NEBULIZA TION EVERY 6 HOURS DIRECTED FOR ASTHMA NEBULI ZATION 12/12/2024 [id number] 5 CHRISTAL AMBRIZ ISTEL G 2023 120 [facility] ALBUTEROL SO4 90MCG/ACTUA T (CFC-F) INHL,ORAL,8 .5GM INHALE 2 PUFFS ORAL INHALATI ON FOUR TIMES A DAY FOR ASTHMA SHAKE WELL. RINSE MOUTHPIE CE FREQUENT LY TO PREVENT CLOGGING . RESPIR ATORY (INHAL ATION) 12/12/2024 [id number] 5 CHRISTAL AMBRIZ ISTEL G 2023 3 [facility] AMIODARONE HCL (PACERONE) 200MG TAB TAKE ONE TABLET BY MOUTH ONCE A DAY ORAL ACTIVE KATHRYN KAUFMAN 2022 [facility] ATORVASTATI N CA 80MG TAB TAKE ONE-HALF TABLET BY MOUTH EVERY EVENING ORAL ACTIVE KATHRYN KAUFMAN 2022 [facility] CALCIUM 600MG ( CARBONATE)/ VITAMIN D 400UNIT TAB TAKE 2 TABLETS BY MOUTH ONCE A DAY FOR CALCIUM SUPPLEME NTATION TAKE WITH FOOD ORAL ACTIVE 01/27/2025 [id number] 5 VENKAT HERZOG 2023 180 [facility] CETIRIZINE HCL 10MG TAB TAKE ONE TABLET BY MOUTH ONCE A DAY NEEDED FOR ALLERGY SYMPTOMS ORAL 08/25/2024 [id number] 4 CHRISTAL AMBRIZ ISTEL G 2023 90 [facility] [facility] CLOPIDOGREL BISULFATE 75MG TAB TAKE ONE TABLET BY MOUTH ONCE A DAY ORAL ACTIVE KATHRYN KAUFMAN 2022 [facility] FERROUS SULFATE TAB TAKE 27MG BY MOUTH ONCE A DAY ORAL ACTIVE KATHRYN KAUFMAN 2022 [facility] FLUOROURACI L 5% CREAM,TOP APPLY THIN AMOUNT TO ROUGH SCALY AREAS OF FACE. TO AFFECTED AREA(S) TWICE A DAY FOR 2 WEEKS AVOID SUN EXPOSURE . FOLLOW DIRECTIO NS CAREFULL Y FOR PROPER HANDLING /DISPOSA L. TOPICA L ACTIVE 02/02/2025 [id number] SALVADOR DALENY A 2023 40 [facility] FLUTICASONE PROPIONATE 50MCG/SPRAY SOLN,NASAL, 16GM INSTILL 2 SPRAYS IN NOSTRIL( S) ONCE A DAY NEEDED FOR RHINITIS (MUST BE USED DIRECTED FOR MINIMUM OF 21 DAYS TO PROVIDE ADEQUATE BENEFITS ) NASAL 08/25/2024 [id number] 4 CHRISTAL AMBRIZ ISTEL G 2023 3 [facility] FOLIC ACID 1MG TAB TAKE ONE TABLET BY MOUTH ONCE A DAY ORAL ACTIVE KATHRYN KAUFMAN 2022 [facility] FUROSEMIDE 40MG TAB TAKE ONE TABLET BY MOUTH TWICE A DAY NEEDED ORAL ACTIVE KATHRYN KAUFMAN 2022 [facility] IMIQUIMOD 5% CREAM,TOP,P KT,0.25GM APPLY SPARINGL Y TO AFFECTED AREA(S) 5X/WEEK TOPICA L ACTIVE KATHRYN KAUFMAN 2022 [facility] [facility] LIDOCAINE 5% PATCH APPLY 1 PATCH TO SKIN SITE ONCE A DAY FOR LOCAL ANESTHES IA APPLY PATCH AND PRESS FIRMLY FOR 10-15 SECONDS. KEEP ON FOR 12 HOURS THEN REMOVE PATCH FOR 12 HOURS. TRANSD ERMAL ACTIVE 01/26/2025 [id number] 4 ELLEN LEE Kaye 2023 90 [facility] MAGNESIUM OXIDE 400MG TAB TAKE ONE TABLET BY MOUTH EVERY MORNING ORAL ACTIVE KATHRYN KAUFMAN 2022 [facility] METOLAZONE 2.5MG TAB TAKE ONE TABLET BY MOUTH ONCE A DAY NEEDED ORAL ACTIVE KATHRYN KAUFMAN 2023 [facility] MONTELUKAST NA 10MG TAB TAKE ONE TABLET BY MOUTH EVERY EVENING FOR ASTHMA ORAL 12/12/2024 [id number] 4 CHRISTAL AMBRIZ ISTEL G [address] [place] [address] [facility] MULTIVITAMI NS CAP/TAB TAKE ONE TABLET BY MOUTH ONCE A DAY ORAL ACTIVE KATHRYN KAUFMAN 2022 [facility] POTASSIUM CHLORIDE 20MEQ TAB,SA (DISPERSIBL E) TAKE ONE TABLET BY MOUTH TWICE A DAY ORAL ACTIVE KATHRYN KAUFMAN 2022 [facility] TAMSULOSIN HCL 0.4MG CAP TAKE 1 CAPSULE BY MOUTH EVERY EVENING ORAL ACTIVE KATHRYN KAUFMAN 2022 [facility] TIOTROPIUM 18MCG CAP,INHL,5 INHALE 1 CAPSULE BY ORAL INHALATI ON ONCE A DAY RESPIR ATORY (INHAL ATION) ACTIVE KATHRYN KAUFMAN 2022 [facility] Immunizations Combined list of available immunizations from the Department of Defense and Veterans Affairs facilities. Immunization Series Date Given Administered By Site Reaction Lot Number CVX Code Drug Line Maintenance Supervisor Status Comments Source INFLUENZA, HIGH-DOSE, TRIVALENT, PF 2023 ANOOP [place] LEFT DELTO ID [id number] 135 complet ed [facility] AT [facility] PNEUMOCOCCAL POLYSACCHARID E PPV23 2021 33 complet ed [facility] TDAP 2021 115 complet ed [facility] COVID-19 (MODERNA), MRNA, LNP-S, PF, 100 MCG/0.5ML DOSE OR 50 MCG/0.25ML DOSE 2020 207 complet ed HISTORICA L INFORMATI ON - FROM PATIENT'S WRITTEN RECORD, Written record [facility] Lot#: [id number] [facility] INFLUENZA, INJECTABLE, QUADRIVALENT, PRESERVATIVE FREE 2020 150 complet ed [facility] [facility] COVID-19 (MODERNA), MRNA, LNP-S, PF, 100 MCG/0.5ML DOSE OR 50 MCG/0.25ML DOSE 2 2020 207 complet ed HISTORICA L INFORMATI ON - FROM PATIENT'S WRITTEN RECORD, [facility] written record received Lot#: [id number] [facility] COVID-19 (MODERNA), MRNA, LNP-S, PF, 100 MCG/0.5ML DOSE OR 50 MCG/0.25ML DOSE 1 2020 207 complet ed HISTORICA L INFORMATI ON - FROM PATIENT'S WRITTEN RECORD, Per written record [facility] Lot#: [id number] [facility] INFLUENZA, INJECTABLE, QUADRIVALENT, PRESERVATIVE FREE 2019 150 complet ed [facility] HEP A-HEP B 2 2018 NONE 104 complet ed [facility] INFLUENZA, INJECTABLE, QUADRIVALENT, PRESERVATIVE FREE 2018 150 complet ed [facility] HEP A-HEP B 1 2018 NONE 104 complet ed [facility] INFLUENZA, SEASONAL, INJECTABLE, PRESERVATIVE FREE 2017 140 complet ed Right Deltoid [facility] ZOSTER RECOMBINANT 2 2017 187 complet ed [facility] ZOSTER RECOMBINANT 1 2017 187 complet ed [facility] INFLUENZA, SEASONAL, INJECTABLE, PRESERVATIVE FREE 2016 140 complet ed Right Deltoid [facility] INFLUENZA, SEASONAL, INJECTABLE, PRESERVATIVE FREE 2015 140 complet ed [facility] INFLUENZA, SEASONAL, INJECTABLE, PRESERVATIVE FREE 2014 140 complet ed [facility] PNEUMOCOCCAL CONJUGATE PCV 13 2014 133 complet ed [facility] INFLUENZA, SEASONAL, INJECTABLE, PRESERVATIVE FREE 2013 140 complet ed [facility] TDAP 2011 115 complet ed [facility] PNEUMOCOCCAL, UNSPECIFIED FORMULATION 2011 109 complet ed [facility] INFLUENZA, UNSPECIFIED FORMULATION 2011 88 complet ed [facility] ZOSTER LIVE 2011 [place] 121 complet ed [place] [facility] INFLUENZA, UNSPECIFIED FORMULATION 2010 88 complet ed [facility] INFLUENZA, UNSPECIFIED FORMULATION 2009 88 complet ed [facility] INFLUENZA, UNSPECIFIED FORMULATION 2008 88 complet ed [facility] INFLUENZA, UNSPECIFIED FORMULATION 2007 88 complet ed [facility] INFLUENZA, UNSPECIFIED FORMULATION 2006 88 complet ed [facility] PNEUMOCOCCAL, UNSPECIFIED FORMULATION 2006 109 complet ed [facility] INFLUENZA, UNSPECIFIED FORMULATION 2006 88 complet ed [facility] OUTSIDE PNEUMOVAX (HISTORICAL) 2006 109 complet ed [facility] PNEUMOCOCCAL, UNSPECIFIED FORMULATION 2005 109 complet ed [id number], Right Deltoid [facility] [facility] Results Combined list of recent chemistry, hematology and other laboratory results from Department of Defense and Veterans Affairs, ranging from 15 months to all on record, depending upon the facility. Order Name Results Value Reference Range Date Interpretation Specimen Comments Source MAGNESIUM MAGNESIUM [MASS/VOLUM E] IN SERUM OR PLASMA 1.76 mg/dL 1.6 - 2.6 09/14 Specimen Type: PLASMA No comment entered. Ordering Provider: STACIE AMBRIZ Report Released Date/Time: Sep 14, 2024 11:05 AM Reporting Lab: [facility] [facility] [address] [place] [address] Performing Lab: [place] [facility] [address] [place] [address] [facility] FOLATE (PB) FOLATE [MASS/VOLUM E] IN SERUM OR PLASMA 10.3 ng/mL 7 - 20 09/14 Specimen Type: SERUM No comment entered. Ordering Provider: STACIE AMBRIZ Report Released Date/Time: Sep 14, 2024 11:05 AM Reporting Lab: [facility] [facility] [address] [place] [address] Performing Lab: [facility] [facility] [facility] [address] [place] [phone] [facility] B12 COBALAMIN (VITAMIN B12) [MASS/VOLUM E] IN SERUM OR PLASMA 582 pg/mL 213 - 816 09/14 Specimen Type: SERUM No comment entered. Ordering Provider: STACIE AMBRIZ Report Released Date/Time: Sep 14, 2024 11:05 AM Reporting Lab: [facility] [facility] [facility] [address] [place] [address] Performing Lab: [facility] [facility] [facility] [address] [place] [address] [facility] HGA1C HEMOGLOBIN A1C/HEMOGLO BIN.TOTAL IN BLOOD 5.3 4.0 - 6.0 09/14 Specimen Type: BLOOD No comment entered. Ordering Provider: STACIE AMBRIZ Report Released Date/Time: Sep 14, 2024 11:05 AM Reporting Lab: [place] [facility] [address] [place] [address] Performing Lab: [facility] [facility] [facility] [address] [place] [address] [facility] VITAMIN D, 25-HYDROX Y 25-HYDROXYV ITAMIN D3 [MASS/VOLUM E] IN SERUM OR PLASMA 35.1 ng/mL 30 - 96 09/14 Specimen Type: SERUM No comment entered. Ordering Provider: STACIE AMBRIZ Report Released Date/Time: Sep 14, 2024 11:05 AM Reporting Lab: [facility] [facility] [address] [place] [address] Performing Lab: [facility] [facility] [facility] [address] [place] [address] [facility] CHOLESTER OL PANEL (PB) CHOLESTEROL [MASS/VOLUM E] IN SERUM OR PLASMA 134 mg/dL 0 - 200 09/14 Specimen Type: PLASMA No comment entered. Ordering Provider: STACIE AMBRIZ Report Released Date/Time: Sep 14, 2024 11:05 AM Reporting Lab: [place] [facility] [address] [place] [address] Performing Lab: [place] [facility] [address] [place] [address] [facility] CHOLESTER OL PANEL (PB) TRIGLYCERID E [MASS/VOLUM E] IN SERUM OR PLASMA 66 mg/dL 0 - 150 09/14 Specimen Type: PLASMA No comment entered. Ordering Provider: STACIE AMBRIZ Report Released Date/Time: Sep 14, 2024 11:05 AM Reporting Lab: [place] [facility] [address] [place] [address] Performing Lab: [place] [facility] [address] [place] [phone] [facility] CHOLESTER OL PANEL (PB) CHOLESTEROL IN LDL [MASS/VOLUM E] IN SERUM OR PLASMA BY CALCULATION 54.8 mg/dL 09/14 Specimen Type: PLASMA No comment entered. Ordering Provider: STACIE AMBRIZ Report Released Date/Time: Sep 14, 2024 11:05 AM Reporting Lab: [place] [facility] [address] [place] [address] Performing Lab: [place] [facility] [address] [place] [address] [facility] CHOLESTER OL PANEL (PB) CHOLESTEROL IN HDL [MASS/VOLUM E] IN SERUM OR PLASMA 66.0 mg/dL 40 09/14 H Specimen Type: PLASMA No comment entered. Ordering Provider: STACIE AMBRIZ Report Released Date/Time: Sep 14, 2024 11:05 AM Reporting Lab: [facility] [facility] [address] [place] [address] Performing Lab: [place] [facility] [address] [place] [address] [facility] CHOLESTER OL PANEL (PB) CHOLESTEROL IN HDL/CHOLEST VIJAY.TOTAL [MASS RATIO] IN SERUM OR PLASMA 49.3 25 09/14 Specimen Type: PLASMA No comment entered. Ordering Provider: STACIE AMBRIZ Report Released Date/Time: Sep 14, 2024 11:05 AM Reporting Lab: [place] [facility] [address] [place] [phone] Performing Lab: [place] [facility] [address] [place] [address] [facility] TSH (MA-PB) THYROTROPIN [UNITS/VOLU ME] IN SERUM OR PLASMA 9.362 u[IU]/mL 0.47 - 5 09/14 H Specimen Type: SERUM No comment entered. Ordering Provider: STACIE AMBRIZ Report Released Date/Time: Sep 14, 2024 11:05 AM Reporting Lab: [place] [facility] [address] [place] [address] Performing Lab: [place] [facility] [address] [place] [address] [facility] TSH (MA-PB) THYROXINE (T4) FREE [MASS/VOLUM E] IN SERUM OR PLASMA 0.92 ng/dL 09/14 Specimen Type: SERUM No comment entered. Ordering Provider: STACIE AMBRIZ Report Released Date/Time: Sep 14, 2024 11:05 AM Reporting Lab: [place] [facility] [address] [place] [address] Performing Lab: [place] [facility] [address] [place] [address] [facility] COMPREHEN SIVE METABOLIC PANEL CREATININE [MASS/VOLUM E] IN SERUM OR PLASMA 0.94 mg/dL 0.7 - 1.3 09/14 Specimen Type: PLASMA No comment entered. Ordering Provider: STACIE AMBRIZ Report Released Date/Time: Sep 14, 2024 11:05 AM Reporting Lab: [place] [facility] [address] [place] [address] Performing Lab: [place] [facility] [address] [place] [address] [facility] COMPREHEN SIVE METABOLIC PANEL UREA NITROGEN [MASS/VOLUM E] IN SERUM OR PLASMA 11 mg/dL 9 - 25 09/14 Specimen Type: PLASMA No comment entered. Ordering Provider: STACIE AMBRIZ Report Released Date/Time: Sep 14, 2024 11:05 AM Reporting Lab: [place] [facility] [address] [place] [address] Performing Lab: [place] [facility] [address] [place] [address] [facility] COMPREHEN SIVE METABOLIC PANEL GLUCOSE [MASS/VOLUM E] IN SERUM OR PLASMA 84 mg/dL 72 - 99 09/14 Specimen Type: PLASMA No comment entered. Ordering Provider: STACIE AMBRIZ Report Released Date/Time: Sep 14, 2024 11:05 AM Reporting Lab: [place] [facility] [address] [place] [address] Performing Lab: [place] [facility] [address] [place] [address] [facility] COMPREHEN SIVE METABOLIC PANEL SODIUM [MOLES/VOLU ME] IN SERUM OR PLASMA 136 meq/L 136 - 145 09/14 Specimen Type: PLASMA No comment entered. Ordering Provider: STACIE AMBRIZ Report Released Date/Time: Sep 14, 2024 11:05 AM Reporting Lab: [place] [facility] [address] [place] [address] Performing Lab: [place] [facility] [address] [place] [address] [facility] COMPREHEN SIVE METABOLIC PANEL POTASSIUM [MOLES/VOLU ME] IN SERUM OR PLASMA 3.4 meq/L 3.5 - 5 09/14 L Specimen Type: PLASMA No comment entered. Ordering Provider: STACIE AMBRIZ Report Released Date/Time: Sep 14, 2024 11:05 AM Reporting Lab: [place] [facility] [address] [place] [address] Performing Lab: [place] [facility] [address] [place] [address] [facility] COMPREHEN SIVE METABOLIC PANEL CHLORIDE [MOLES/VOLU ME] IN SERUM OR PLASMA 101 meq/L 98 - 107 09/14 Specimen Type: PLASMA No comment entered. Ordering Provider: STACIE AMBRIZ Report Released Date/Time: Sep 14, 2024 11:05 AM Reporting Lab: [place] [facility] [address] [place] [address] Performing Lab: [place] [facility] [address] [place] [id number] [facility] COMPREHEN SIVE METABOLIC PANEL CARBON DIOXIDE, TOTAL [MOLES/VOLU ME] IN SERUM OR PLASMA 23 meq/L 22 - 31 09/14 Specimen Type: PLASMA No comment entered. Ordering Provider: STACIE AMBRIZ Report Released Date/Time: Sep 14, 2024 11:05 AM Reporting Lab: [place] [facility] [address] [place] [address] Performing Lab: [place] [facility] [address] [place] [address] [facility] COMPREHEN SIVE METABOLIC PANEL CALCIUM [MASS/VOLUM E] IN SERUM OR PLASMA 8.3 mg/dL 8.4 - 10.4 09/14 L Specimen Type: PLASMA No comment entered. Ordering Provider: STACIE AMBRIZ Report Released Date/Time: Sep 14, 2024 11:05 AM Reporting Lab: [place] [facility] [address] [place] [address] Performing Lab: [place] [facility] [address] [place] [address] [facility] COMPREHEN SIVE METABOLIC PANEL PROTEIN [MASS/VOLUM E] IN SERUM OR PLASMA 7.0 g/dL 6 - 8.6 09/14 Specimen Type: PLASMA No comment entered. Ordering Provider: STACIE AMBRIZ Report Released Date/Time: Sep 14, 2024 11:05 AM Reporting Lab: [place] [facility] [address] [place] [address] Performing Lab: [place] [facility] [address] [place] [address] [facility] COMPREHEN SIVE METABOLIC PANEL ALBUMIN [MASS/VOLUM E] IN SERUM OR PLASMA 3.7 g/dL 3.4 - 5 09/14 Specimen Type: PLASMA No comment entered. Ordering Provider: STACIE AMBRIZ Report Released Date/Time: Sep 14, 2024 11:05 AM Reporting Lab: [place] [facility] [address] [place] [address] Performing Lab: [place] [facility] [address] [place] [address] [facility] COMPREHEN SIVE METABOLIC PANEL BILIRUBIN.T OTAL [MASS/VOLUM E] IN SERUM OR PLASMA 0.5 mg/dL 0.2 - 1.2 09/14 Specimen Type: PLASMA No comment entered. Ordering Provider: STACIE AMBRIZ Report Released Date/Time: Sep 14, 2024 11:05 AM Reporting Lab: [place] [facility] [address] [place] [address] Performing Lab: [place] [facility] [address] [place] [id number] [facility] COMPREHEN SIVE METABOLIC PANEL ALKALINE PHOSPHATASE [ENZYMATIC ACTIVITY/VO LUME] IN SERUM OR PLASMA 139 U/L 40 - 150 09/14 Specimen Type: PLASMA No comment entered. Ordering Provider: STACIE AMBRIZ Report Released Date/Time: Sep 14, 2024 11:05 AM Reporting Lab: [facility] [facility] [address] [place] [address] Performing Lab: [place] [facility] [address] [place] [phone] [facility] COMPREHEN SIVE METABOLIC PANEL ASPARTATE AMINOTRANSF ERASE [ENZYMATIC ACTIVITY/VO LUME] IN SERUM OR PLASMA 63 U/L 5 - 34 09/14 H Specimen Type: PLASMA No comment entered. Ordering Provider: STACIE AMBRIZ Report Released Date/Time: Sep 14, 2024 11:05 AM Reporting Lab: [place] [facility] [address] [place] [address] Performing Lab: [place] [facility] [address] [place] [address] [facility] COMPREHEN SIVE METABOLIC PANEL ALANINE AMINOTRANSF ERASE [ENZYMATIC ACTIVITY/VO LUME] IN SERUM OR PLASMA 32 U/L 8 - 40 09/14 Specimen Type: PLASMA No comment entered. Ordering Provider: STACIE AMBRIZ G Report Released Date/Time: Sep 14, 2024 11:05 AM Reporting Lab: [place] [facility] [address] [place] [phone] Performing Lab: [place] [facility] [address] [place] [address] [facility] COMPREHEN SIVE METABOLIC PANEL GLOMERULAR FILTRATION RATE/1.73 SQ M.PREDICTED [VOLUME RATE/AREA] IN SERUM, PLASMA OR BLOOD BY CREATININE- BASED FORMULA (CKD-EPI 2020) 81 09/14 Specimen Type: PLASMA No comment entered. Ordering Provider: STACIE AMBRIZ Report Released Date/Time: Sep 14, 2024 11:05 AM Reporting Lab: [place] [facility] [address] [place] [address] Performing Lab: [place] [facility] [address] [place] [address] [facility] CBC LEUKOCYTES [#/VOLUME] IN BLOOD BY AUTOMATED COUNT 5.2 10*3/uL 3.6 - 11.2 09/14 Specimen Type: BLOOD No comment entered. Ordering Provider: STACIE AMBRIZ Report Released Date/Time: Sep 14, 2024 11:05 AM Reporting Lab: [place] [facility] [address] [place] [address] Performing Lab: [place] [facility] [address] [place] [address] [facility] CBC ERYTHROCYTE S [#/VOLUME] IN BLOOD BY AUTOMATED COUNT 4.40 10*6/uL 4.10 - 5.70 09/14 Specimen Type: BLOOD No comment entered. Ordering Provider: STACIE AMBRIZ G Report Released Date/Time: Sep 14, 2024 11:05 AM Reporting Lab: [place] [facility] [address] [place] [phone] Performing Lab: [place] [facility] [address] [place] [address] [facility] CBC HEMOGLOBIN [MASS/VOLUM E] IN BLOOD 10.3 g/dL 13.1 - 16.8 04/18 /2025 L Specimen Type: BLOOD No comment entered. Ordering Provider: STACIE AMBRIZ G Report Released Date/Time: Sep 14, 2024 11:05 AM Reporting Lab: [place] [facility] [address] [place] [address] Performing Lab: [place] [facility] [address] [place] [address] [facility] CBC HEMATOCRIT [VOLUME FRACTION] OF BLOOD 34.8 38.2 - 48.4 09/14 L Specimen Type: BLOOD No comment entered. Ordering Provider: STACIE AMBRIZ Report Released Date/Time: Sep 14, 2024 11:05 AM Reporting Lab: [place] [facility] [address] [place] [address] Performing Lab: [place] [facility] [address] [place] [address] [facility] CBC MCV [ENTITIC VOLUME] BY AUTOMATED COUNT 79.1 fL 80.0 - 100.0 09/14 L Specimen Type: BLOOD No comment entered. Ordering Provider: STACIE AMBRIZ Report Released Date/Time: Sep 14, 2024 11:05 AM Reporting Lab: [place] [facility] [address] [place] [address] Performing Lab: [place] [facility] [address] [place] [address] [facility] CBC MCH [ENTITIC MASS] BY AUTOMATED COUNT 23.4 pg 27.0 - 34.0 09/14 L Specimen Type: BLOOD No comment entered. Ordering Provider: STACIE AMBRIZ Report Released Date/Time: Sep 14, 2024 11:05 AM Reporting Lab: [place] [facility] [address] [place] [address] Performing Lab: [place] [facility] [address] [place] [address] [facility] CBC MCHC [MASS/VOLUM E] BY AUTOMATED COUNT 29.6 g/dL 33.0 - 36.0 09/14 L Specimen Type: BLOOD No comment entered. Ordering Provider: STACIE AMBRIZ Report Released Date/Time: Sep 14, 2024 11:05 AM Reporting Lab: [place] [facility] [address] [place] [address] Performing Lab: [place] [facility] [address] [place] [address] [facility] CBC PLATELETS [#/VOLUME] IN BLOOD BY AUTOMATED COUNT 355 10*3/uL 150 - 400 09/14 Specimen Type: BLOOD No comment entered. Ordering Provider: STACIE AMBRIZ Report Released Date/Time: Sep 14, 2024 11:05 AM Reporting Lab: [place] [facility] [address] [place] [address] Performing Lab: [place] [facility] [address] [place] [phone] [facility] CBC PLATELET MEAN VOLUME [ENTITIC VOLUME] IN BLOOD BY AUTOMATED COUNT 9.9 fL 7.5 - 11.2 09/14 Specimen Type: BLOOD No comment entered. Ordering Provider: STACIE AMBRIZ Report Released Date/Time: Sep 14, 2024 11:05 AM Reporting Lab: [place] [facility] [address] [place] [address] Performing Lab: [place] [facility] [address] [place] [address] [facility] CBC PLATELET ADEQUACY [PRESENCE] IN BLOOD BY LIGHT MICROSCOPY ADEQUATE 09/14 Specimen Type: BLOOD No comment entered. Ordering Provider: STACIE AMBRIZ Report Released Date/Time: Sep 14, 2024 11:05 AM Reporting Lab: [place] [facility] [address] [place] [address] Performing Lab: [place] [facility] [address] [place] [address] [facility] CBC ANISOCYTOSI S [PRESENCE] IN BLOOD BY LIGHT MICROSCOPY 2+ 09/14 H Specimen Type: BLOOD No comment entered. Ordering Provider: STACIE AMBRIZ Report Released Date/Time: Sep 14, 2024 11:05 AM Reporting Lab: [place] [facility] [address] [place] [address] Performing Lab: [place] [facility] [address] [place] [address] [facility] CBC ERYTHROCYTE DISTRIBUTIO N WIDTH [RATIO] BY AUTOMATED COUNT 21.3 11.8 - 15.1 09/14 H Specimen Type: BLOOD No comment entered. Ordering Provider: STACIE AMBRIZ Report Released Date/Time: Sep 14, 2024 11:05 AM Reporting Lab: [place] [facility] [address] [place] [address] Performing Lab: [place] [facility] [address] [place] [address] [facility] CBC LYMPHOCYTES /100 LEUKOCYTES IN BLOOD BY AUTOMATED COUNT 29.9 09/14 Specimen Type: BLOOD No comment entered. Ordering Provider: STACIE AMBRIZ Report Released Date/Time: Sep 14, 2024 11:05 AM Reporting Lab: [place] [facility] [address] [place] [address] Performing Lab: [place] [facility] [address] [place] [address] [facility] CBC MONOCYTES/1 00 LEUKOCYTES IN BLOOD BY AUTOMATED COUNT 13.4 09/14 Specimen Type: BLOOD No comment entered. Ordering Provider: STACIE AMBRIZ Report Released Date/Time: Sep 14, 2024 11:05 AM Reporting Lab: [place] [facility] [address] [place] [address] Performing Lab: [place] [facility] [address] [place] [address] [facility] CBC NEUTROPHILS /100 LEUKOCYTES IN BLOOD BY AUTOMATED COUNT 44.2 09/14 Specimen Type: BLOOD No comment entered. Ordering Provider: STACIE AMBRIZ Report Released Date/Time: Sep 14, 2024 11:05 AM Reporting Lab: [place] [facility] [address] [place] [phone] Performing Lab: [place] [facility] [address] [place] [address] [facility] CBC EOSINOPHILS /100 LEUKOCYTES IN BLOOD BY AUTOMATED COUNT 10.0 09/14 Specimen Type: BLOOD No comment entered. Ordering Provider: STACIE AMBRIZ Report Released Date/Time: Sep 14, 2024 11:05 AM Reporting Lab: [place] [facility] [address] [place] [address] Performing Lab: [place] [facility] [address] [place] [address] [place] [address] [facility] CBC BASOPHILS/1 00 LEUKOCYTES IN BLOOD BY AUTOMATED COUNT 1.7 09/14 Specimen Type: BLOOD No comment entered. Ordering Provider: STACIE AMBRIZ Report Released Date/Time: Sep 14, 2024 11:05 AM Reporting Lab: [place] [facility] [address] [place] [address] Performing Lab: [place] [facility] [address] [place] [address] [facility] CBC LYMPHOCYTES [#/VOLUME] IN BLOOD BY AUTOMATED COUNT 1.56 10*3/uL 0.77 - 4.50 09/14 Specimen Type: BLOOD No comment entered. Ordering Provider: STACIE AMBRIZ Report Released Date/Time: Sep 14, 2024 11:05 AM Reporting Lab: [place] [facility] [address] [place] [address] Performing Lab: [place] [facility] [address] [place] [address] [facility] CBC MONOCYTES [#/VOLUME] IN BLOOD BY AUTOMATED COUNT 0.70 10*3/uL 0.19 - 0.8 09/14 Specimen Type: BLOOD No comment entered. Ordering Provider: STACIE AMBRIZ Report Released Date/Time: Sep 14, 2024 11:05 AM Reporting Lab: [place] [facility] [address] [place] [address] Performing Lab: [place] [facility] [address] [place] [address] [facility] CBC NEUTROPHILS [#/VOLUME] IN BLOOD BY AUTOMATED COUNT 2.30 10*3/uL 2.10 - 8.00 09/14 Specimen Type: BLOOD No comment entered. Ordering Provider: AMBRIZ,STACIE TEL G Report Released Date/Time: Sep 14, 2024 11:05 AM Reporting Lab: [place] [facility] [address] [place] [address] Performing Lab: [place] [facility] [address] [place] [address] [facility] CBC EOSINOPHILS [#/VOLUME] IN BLOOD BY AUTOMATED COUNT 0.52 10*3/uL 0.00 - 0.60 09/14 Specimen Type: BLOOD No comment entered. Ordering Provider: STACIE AMBRIZ Report Released Date/Time: Sep 14, 2024 11:05 AM Reporting Lab: [place] [facility] [address] [place] [address] Performing Lab: [place] [facility] [address] [place] [address] [facility] CBC BASOPHILS [#/VOLUME] IN BLOOD BY AUTOMATED COUNT 0.09 10*3/uL 0.00 - 0.20 09/14 Specimen Type: BLOOD No comment entered. Ordering Provider: STACIE AMBRIZ Report Released Date/Time: Sep 14, 2024 11:05 AM Reporting Lab: [place] [facility] [address] [place] [address] Performing Lab: [place] [facility] [address] [place] [address] [facility] CBC IMMATURE GRANULOCYTE S/100 LEUKOCYTES IN BLOOD BY AUTOMATED COUNT 0.8 09/14 Specimen Type: BLOOD No comment entered. Ordering Provider: STACIE AMBRIZ Report Released Date/Time: Sep 14, 2024 11:05 AM Reporting Lab: [place] [facility] [address] [place] [address] Performing Lab: [place] [facility] [address] [place] [address] [facility] CBC IMMATURE GRANULOCYTE S [#/VOLUME] IN BLOOD BY AUTOMATED COUNT 0.04 10*3/uL 0.00 - 0.05 09/14 Specimen Type: BLOOD No comment entered. Ordering Provider: STACIE AMBRIZ Report Released Date/Time: Sep 14, 2024 11:05 AM Reporting Lab: [place] [facility] [address] [place] [address] Performing Lab: [place] [facility] [address] [place] [address] [facility] CBC MANUAL DIFFERENTIA L COMMENT [INTERPRETA TION] IN BLOOD NARRATIVE NO 09/14 Specimen Type: BLOOD No comment entered. Ordering Provider: STACIE AMBRIZ Report Released Date/Time: Sep 14, 2024 11:05 AM Reporting Lab: [place] [facility] [address] [place] [address] Performing Lab: [place] [facility] [address] [place] [address] [facility] CBC MANUAL DIFFERENTIA L PERFORMED [PRESENCE] IN BLOOD YES 09/14 Specimen Type: BLOOD No comment entered. Ordering Provider: STACIE AMBRIZ Report Released Date/Time: Sep 14, 2024 11:05 AM Reporting Lab: [place] [facility] [address] [place] [address] Performing Lab: [place] [facility] [address] [place] [address] [facility] VITAMIN B1 THIAMINE [MOLES/VOLU ME] IN SERUM OR PLASMA 14 nmol/L 8 - 30 02/15 Specimen Type: PLASMA Comment: Vitamin supplementa tion within 24 hours prior to blood draw may affect the accuracy of the results. This test was developed and its analytical performance characteris tics have been determined by [employer] [place], [place]. It has not been cleared or approved by the U.S. Food and Drug Administrat ion. This assay has been validated pursuant to the CLIA regulations and is used for clinical purposes. Test Performed by [facility], [address] [place] [address] Shan Knott M.D., Ph.D., Director of Laboratorie s , CLIA [id number] Ordering Provider: STACIE AMBRIZ Report Released Date/Time: Feb 09, 2024 06:57 AM Reporting Lab: [place] [facility] [address] [place] [address] Performing Lab: [place] [facility] [address] [facility] [address] [place] [facility] Vital Signs Combined list of inpatient and outpatient Vital Signs from Department of Defense and Veterans Affairs, ranging from 12 months to all on record, depending upon the facility. Vital Sign Value Date Comments Source SYSTOLIC BLOOD PRESSURE 137 07/09/2024 11:54:00 [place] [facility] DIASTOLIC BLOOD PRESSURE 53 07/09/2024 11:54:00 [place] [facility] PULSE OXIMETRY 84 07/09/2024 11:54:00 [facility] PULSE 88 07/09/2024 11:54:00 [place] [facility] SYSTOLIC BLOOD PRESSURE 122 03/22/2024 13:10:00 [place] [facility] DIASTOLIC BLOOD PRESSURE 72 03/22/2024 13:10:00 [place] [facility] PULSE OXIMETRY 97 03/22/2024 13:10:00 [facility] [place] [facility] TEMPERATURE 97.6 03/22/2024 13:10:00 [place] [facility] PULSE 76 03/22/2024 13:10:00 [place] [facility] SYSTOLIC BLOOD PRESSURE 113 02/02/2024 11:20:00 [place] [facility] DIASTOLIC BLOOD PRESSURE 66 02/02/2024 11:20:00 [place] [facility] PULSE OXIMETRY 94 02/02/2024 11:20:00 [facility] [place] [facility] TEMPERATURE 97.4 02/02/2024 11:20:00 [place] [facility] PULSE 65 02/02/2024 11:20:00 [place] [facility] SYSTOLIC BLOOD PRESSURE 111 01/26/2024 13:48:39 [place] [facility] DIASTOLIC BLOOD PRESSURE 65 01/26/2024 13:48:39 [place] [facility] PULSE OXIMETRY 97 01/26/2024 13:48:39 [facility] [place] [facility] WEIGHT 158.4 01/26/2024 13:48:39 [place] [facility] BMI 23 kg/m2 01/26/2024 13:48:39 [place] [facility] TEMPERATURE 98 01/26/2024 13:48:39 [place] [facility] PULSE 71 01/26/2024 13:48:39 [facility] RESPIRATION 21 01/26/2024 13:48:39 [facility] Encounters Combined list of: 1) Encounters from Department of Veterans Affairs facilities going backup to the last 18 months, not all VA inpatient encounters are included; 2) Encounters from the Department of Defense facilities going backup to 280 months. Location Location Details Encounter Type Encounter Number Reason For Visit Attending Provider ADM Date DC Date Status Disposition Source [facility] ACUPUNCT W/O STIMUL 15 MIN [id number] Diagnos is: ICD-10- CM M79.671 Pain in right foot GORDY LEE R 07/07 [facility] En[facility] [id number] [facility]O STIMUL 15 MIN [id number] Diagnos is: ICD-10- CM M79.671 Pain in right foot GORDY LEE R 07/14 [facility] En[facility] [id number] [facility]O STIMUL 15 MIN [id number] Diagnos is: ICD-10- CM M79.671 Pain in right foot GORDY LEE R [facility] Outpatient Encounter [id number] 07[facility] En[facility] [id number] 08[facility]OP EST SEPTEMBER X REQ PHY/QHP [id number] Diagnos is: ICD-10- CM R05.1 Acute cough Debra URE[facility]A [facility]OMEKA [facility] OFF/OP EST MAY X REQ PHY/QHP [id number] Diagnos is: ICD-10- CM R05.1 Acute cough [facility]EE [facility] OFFICE O/P EST LOW 20 MIN [id number] Diagnos is: ICD-10- CM J01.90 Acute sinusit is, unspeci AILEEN Tran G 08/24 [facility] OFF/OP EST MAY X REQ PHY/QHP [id number] Diagnos is: ICD-10- CM R05.1 Acute cough Debra UREÑA TOMEKA 08/25 [facility] OFFICE O/P EST LOW 20 MIN [id number] Diagnos is: ICD-10- CM J02.9 Acute pharyng itis, unspeci donis AILEEN AMBRIZ G 08/25 [facility] Outpatient Encounter [id number] 08/31 [facility] Outpatient Encounter [id number] 09/05 [facility] ACUPUNCT W/O STIMUL 15 MIN [id number] Diagnos is: ICD-10- CM M79.672 Pain in left foot GORDY LEE R 09/14 [facility] Outpatient Encounter [id number] 09/21 [facility] [place] [facility] ACUPUNCT W/O STIMUL 15 MIN [id number] Diagnos is: ICD-10- CM M79.671 Pain in right foot GORDY LEE R 09/21 [facility] Outpatient Encounter [id number] 09/26 [facility] Outpatient Encounter [id number] 09/28 [facility] ACUPUNCT W/O STIMUL 15 MIN [id number] Diagnos is: ICD-10- CM M79.671 Pain in right foot GORDY LEE R 09/28 [facility] Outpatient Encounter [id number] 10/05 [facility] ACUPUNCT W/O STIMUL 15 MIN [id number] Diagnos is: ICD-10- CM M79.671 Pain in right foot GORDY LEE 10/05 [facility] Outpatient Encounter [id number] 10/09 [facility] Outpatient Encounter [id number] 10/10 [facility] En[facility] [id number] 10/12 [facility] OFF/OP EST SEPTEMBER X REQ PHY/QHP [id number] Diagnos is: ICD-10- CM W19.XXX A Unspeci fied fall, initial encount er KEITH BOB 10/13 [place] [facility] OFFICE O/P EST MOD 30 MIN [id number] Diagnos is: ICD-10- CM S01.119 A Lacerat ion w/o fb of unsp eyelid and periocu lar area, init AILEEN AMBRIZ STERody G 10/13 [place] [facility] [place] [facility] OFF/OP EST MAY X REQ PHY/QHP [id number] Diagnos is: ICD-10- CM S81.809 A Unspeci fied open wound, unspeci fied lower leg, init encntr KEITH BOB A 10/16 [place] [facility] [place] [facility] OFF/OP EST MAY X REQ PHY/QHP [id number] Diagnos is: ICD-10- CM S80.811 S Abrasio n, right lower leg, sequela CUSTRED,TO RRI J 10/19 [place] [facility] ACUPUNCT W/O STIMUL 15 MIN [id number] Diagnos is: ICD-10- CM M79.671 Pain in right foot GORDY LEE 10/19 [place] [facility] [place] [facility] OFF/OP EST MAY X REQ PHY/QHP [id number] Diagnos is: ICD-10- CM Z48.02 Encount er for removal of sutures KEIHT BOB 10/24 [facility] Outpatient Encounter [id number] 10/25 [facility] En[facility] [id number] Beth MONSON 10/25 [facility] OFF/OP EST MAY X REQ PHY/QHP [id number] Diagnos is: ICD-10- CM S81.001 D Unspeci fied open wound, right knee, subsequ ent encount KEITH Landa A 10/26 [place] [facility] ACUPUNCT W/O STIMUL 15 MIN [id number] Diagnos is: ICD-10- CM M79.671 Pain in right foot GORDY LEE R 10/26 [facility] OFFICE O/P EST LOW 20 MIN [id number] Diagnos is: ICD-10- CM S81.801 S Unspeci fied open wound, right lower leg, sequela AILEEN AMBRIZ G 10/26 [facility] [id number] 10/31 [facility] [id number] 11/02 [facility] Outpatient Encounter [id number] 11/07 [facility] AC[facility] W/O STIMUL 15 MIN [id number] [id number] Diagnos is: ICD-10- CM M79.671 Pain in right foot GORDY LEE R 11/09 [facility] THERAPEUTI C EXERCISES [id number] [id number] Diagnos is: ICD-10- CM M62.81 Muscle weaknes s (genera lized) TEJ CAMARILLO A 11/10 [facility] ACUPUNCT W/O STIMUL 15 MIN [id number] [id number] Diagnos is: ICD-10- CM M79.671 Pain in right foot GORDY LEE 11/23 [facility] Outpatient Encounter [id number] 11/24 [facility] Outpatient Encounter [id number] [id number] 11/28 [facility] Outpatient Encounter [id number] CHERISEAILEEN MELISSA N 12/05 [facility] Outpatient Encounter [id number] [id number] Diagnos is: ICD-10- CM J20.9 Acute bronchi tis, unspeci KEITH Slaughter A 12/07 [facility] Outpatient Encounter [id number] 12/08 [facility] Outpatient Encounter [id number] [id number] CHERISEAILEEN MELISSA N 12/10 [facility] OFF/OP EST MAY X REQ PHY/QHP [id number] [id number] Diagnos is: ICD-10- CM R06.00 Dyspnea , unspeci KEITH Slaughter A 12/11 [facility] OFFICE O/P EST MOD 30 MIN [id number] [id number] Diagnos is: ICD-10- CM L01.00 Impetig o, unspeci ALIEEN Tran 12/11 [facility] Outpatient Encounter [id number] [id number] 12/12 [facility] OFFICE O/P EST MOD 30 MIN [id number] [id number] Diagnos is: ICD-10- CM Z09 Encntr for f/u exam aft trtmt for cond oth than malig neoplm CHRISTAL AMBRIZZachary CALDERÓN G 12/13 [facility] Outpatient Encounter [id number] 12/14 [facility] Outpatient Encounter [id number] [id number] 12/18 [facility] ACUPUNCT W/O STIMUL 15 MIN [id number] [id number] Diagnos is: ICD-10- CM M79.671 Pain in right foot GORDY LEE Kaye 12/28 [facility] Outpatient Encounter [id number] [id number] AILEEN AMBRIZ G 01/05 [facility] Outpatient Encounter [id number] [id number] 01/09 [facility] Outpatient Encounter [id number] [id number] 01/12 [facility] Outpatient Encounter [id number] [id number] STEPHANIE VERNON RIL L 01/18 [facility] Outpatient Encounter [id number] [id number] STEPHANIE VERNON RIL L 01/21 [facility] Outpatient Encounter [id number] [id number] Diagnos is: ICD-10- CM 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, 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 KEITH Slaughter 01/22 [facility] OFF/OP EST MAY X REQ PHY/QHP [id number] Diagnos is: ICD-10- CM R52 Pain, unspeci fied KEITH BOB A 01/25 [facility] Outpatient Encounter [id number] [id number] 01/25 [facility] Outpatient Encounter [id number] [id number] 01/25 [facility] Outpatient Encounter [id number] [id number] 01/30 [facility] Outpatient Encounter [id number] [id number] 02/01 [facility] EST MAY X REQ PHY/QHP [id number] [id number] Diagnos is: ICD-10- CM M54.50 Low back pain, unspeci fied CUSTRED,TO RRI J 02/01 [facility] OFFICE O/P EST MOD 30 MIN [id number] [id number] Diagnos is: ICD-10- CM 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 AILEEN AMBRIZ 02/01 [facility] Outpatient Encounter [id number] [id number] 02/01 [facility] En[facility] [id number] [id number] AILEEN AMBRIZ 02/02 [facility] Outpatient Encounter [id number] [id number] AILEEN AMBRIZ 02/08 [facility] Outpatient Encounter [id number] [id number] 02/09 [facility] Outpatient Encounter [id number] [id number] 02/13 [facility]/O STIMUL 15 MIN [id number] [id number] Diagnos is: ICD-10- CM M79.671 Pain in right foot GORDY LEE R 02/15 [facility] Outpatient Encounter [id number] [id number] 2 02/20 [facility] Outpatient Encounter [id number] [id number] 5 02/22 [facility] ACUPUNCT W/O STIMUL 15 MIN [id number] [id number] Diagnos is: ICD-10- CM M79.671 Pain in right foot GORDY LEE R 02/22 [facility] Outpatient Encounter [id number] [id number] 02/23 [facility] Outpatient Encounter 07420-8.65 [id number] 02/23 [facility] Outpatient Encounter [id number] [id number] 1 03/06 [facility] Outpatient Encounter [id number] [id number] 03/14 [facility] OFF/OP EST SEPTEMBER X REQ PHY/QHP [id number] [id number] Diagnos is: ICD-10- CM Z23 Encount er for immuniz ation CUSTRED,TO RRI J 03/15 [facility] OFFICE O/P EST MOD 30 MIN [id number] [id number] Diagnos is: ICD-10- CM Z00.01 Encount er for general adult medical exam w abnorma l finding s AILEEN AMBRIZ G 03/22 [facility] ACUPUNCT W/O STIMUL 15 MIN [id number] [id number] Diagnos is: ICD-10- CM M79.671 Pain in right foot GORDY LEE R 03/22 [facility] IMG RTA DETC/MNTR DS PHY/QHP 89905-1.65 [id number] Diagnos is: ICD-10- CM Z13.9 Encount er for screeni ng, unspeci fied KIRSTY HAMMER S 03/22 [place] [facility] Outpatient Encounter [id number] [id number] MAKSIM DUMONT 03/22 [facility] Outpatient Encounter [id number] [id number] 03/22 [facility] FUNDUS PHOTOGRAPH Y W/I&R [id number] [id number] Diagnos is: ICD-10- CM Z13.5 Encount er for screeni ng for eye and ear disorde rs MAKSIM DUMONT L 03/22 [facility] Outpatient Encounter [id number] [id number] 03/26 [facility] Outpatient Encounter [id number] [id number] 03/27 [facility] Outpatient Encounter 45916-1.65 [id number] 04/02 [facility] Outpatient Encounter [id number] [id number] 6 04/06 [facility] Outpatient Encounter [id number] [id number] 9 04/10 [facility] Outpatient Encounter [id number] [id number] 3 04/23 [facility] Outpatient Encounter [id number] [id number] 4 05/02 [facility] Outpatient Encounter [id number] [id number] STEPHANIE VERNON 05/07 [facility] [place] Outpatient Encounter [id number] [id number] 05/07 [place] [facility] [facility] ACUPUNCT W/O STIMUL 15 MIN [id number] [id number] Diagnos is: ICD-10- CM M79.671 Pain in right foot GORDY LEE 05/10 [facility] HC PRO PHONE CALL 5-10 MIN [id number] [id number] Diagnos is: ICD-10- CM 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 JUAN Gtz 05/11 [facility] Outpatient Encounter [id number] [id number] 05/14 [facility] Outpatient Encounter 26201-3.65 [id number] 9 05[facility]17 [facility] En[facility] 44465-3.65 [id number] 05/25 [facility] Encounter 85168-6.65 [id number] 2 05/28 [facility] Encounter [id number] [id number] 1 05/28 [facility] Encounter 53277-4.65 [id number] 1 05/31 [facility] Out[facility] Encounter [id number] [id number] 2 06/01 [facility] Out[facility] Encounter 53045-9.65 [id number] 2 06/04 [facility] Outpatient Encounter [id number] [id number] 2 06/05 [facility] Outpatient Encounter 80614-5.65 [id number] 06/11 [facility] Out[facility] Encounter 63271-3.65 [id number] 3 06/12 [facility] Encounter 63444-6.65 [id number] 06/13 [facility] Encounter 20738-7.65 [id number] 1 06/19 [facility] Encounter 78909-8.65 [id number] 9 STEPHANIE VERNON 06/22 [facility] Encounter [id number] [id number] 3 STEPHANIE VERNON RIL L 07/02 [facility]counter 86980-9.65 [id number] 07/04 [facility] Out[facility] Encounter 76613-3.65 [id number] 07/04 [facility] OFF/OP EST SEPTEMBER X REQ PHY/QHP [id number] [id number] Diagnos is: ICD-10- CM W19.XXX A Unspeci fied fall, initial encount er BENJIE QIU R 07/09 [facility] [id number] [id number] 07/09 [facility] Outpatient Encounter 75296-2.65 [id number] BENJIE QIU R 07/09 [facility] Out[facility] Encounter [id number] [id number] 07/10 [place] [facility] Outpatient Encounter 58319-6.65 [id number] 7 07/10 [facility] Encounter 81132-1.65 [id number] 2 07/11 [facility] Outpatient Encounter [id number] [id number] 07/12 [place] Outpatient Encounter [id number] [id number] 07/13 [facility] Encounter [id number] [id number] 07/13 [facility] Encounter [id number] [id number] 7 07/18 [facility] Out[facility] Encounter [id number] [id number] 4 07/20 [facility] Outpatient Encounter 31976-2.65 [id number] 1 07/23 [facility] Outpatient Encounter 59675-0.65 [id number] 0 07/26 [facility] Encounter 12047-4.65 [id number] 2 07/27 [facility] Outpatient Encounter [id number] [id number] 3 07/30 [facility] Outpatient Encounter 93258-2.65 [id number] 07/30 [facility] Outpatient Encounter 41017-5.65 [id number] 5 08/01 [facility] Outpatient Encounter 62908-9.65 [id number] 08/02 [facility] Outpatient Encounter [id number] [id number] 08/05 [facility] NURSING ASSESSMENT /EVALUATN [id number] [id number] Diagnos is: ICD-10- CM Z02.89 Encount er for other adminis trative examina tions JUAN ACKERMAN YARON Alda 08/09 [facility] OFFICE O/P EST MOD 30 MIN [id number] [id number] Diagnos is: ICD-10- CM R53.1 AILEEN Cody Mayo 08/09 [facility] PH1 ASSMT&MGMT NQHP 5-10 [id number] [id number] Diagnos is: ICD-10- CM Z02.89 Encount er for other adminis trative examina tions CHEWPEBBLES TOLEDOKevin Fine 08/13 [facility] Outpatient Encounter 90373-3.65 [id number] 08/14 [facility] [id number] [id number] 08/16 [facility] [id number] [id number] 08/20 [facility] [facility] Outpatient Encounter [id number] [id number] 08/20 [facility] PH1 ASSMT&MGMT NQHP 11-20 [id number] [id number] Diagnos is: ICD-10- CM Z74.1 Need for assista nce with persona l CONCETTA Crenshaw 08/21 [facility] Outpatient Encounter 47895-5.65 [id number] CONCETTA NAVA 08/[address] [facility] Outpatient Encounter 87411-2.65 [id number] 08/22 [facility] Outpatient Encounter 87417-3.65 [id number] 08/22 [facility] Outpatient Encounter [id number] [id number] 3 08/24 [facility] PH1 ASSMT&MGMT NQHP 11-20 [id number] [id number] Diagnos is: ICD-10- CM Z74.1 Need for assista nce with CONCETTA Huggins 08/27 [facility] Outpatient Encounter [id number] [id number] 08/27 [facility] Outpatient Encounter 53813-8.65 [id number] 08/28 [facility] Outpatient Encounter 44999-7.65 [id number] 1 09/06 [facility] Outpatient Encounter 81881-3.65 [id number] 6 09/07 [facility] Outpatient Encounter 21211-2.65 [id number] 5 09/09 [facility] Outpatient Encounter 93459-4.65 [id number] 5 09/14 [facility] OFF/OP EST SEPTEMBER X REQ PHY/QHP [id number] [id number] Diagnos is: ICD-10- CM 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 JUAN ACKERMAN 09/14 [facility] Outpatient Encounter [id number] [id number] 09/14 [facility] En[facility] [id number] [id number] 09/18 [facility] Outpatient Encounter [id number] [id number] 5 09/19 [facility] Outpatient Encounter [id number] [id number] 1 09/26 [facility] Outpatient Encounter 98624-7.65 [id number] 9 10/03 [facility] Outpatient Encounter [id number] [id number] 10/04 [facility] Outpatient Encounter [id number] [id number] 4 10/05 [facility] Outpatient Encounter [id number] [id number] 10/10 [facility] Outpatient Encounter [id number] [id number] TEDDY STALLINGS 11/08 [facility] Outpatient Encounter [id number] [id number] STEPHANIE VERNON 11/26 [facility] Outpatient Encounter [id number] [id number] 12/03 [facility] Outpatient Encounter [id number] [id number] 12/24 [facility] [place] [facility] Outpatient Encounter [id number] [id number] 12/28 [place] [facility] Outpatient Encounter [id number] [id number] 12/31 [facility] Encounter [id number] [id number] 7 12/31 [facility] [id number] [id number] 01/01 [facility] Social History Combined list of available smoking, tobacco, and other social history from Department of Defense and Veterans Affairs facilities. Social History Type Response Date Comment Source Tobacco smoking status AZIS VA-TOBACCO USER EVERY DAY 03/22/2024 [facility] History of tobacco use VA-TOBACCO USE ADVICE 03/22/2024 [facility] History of tobacco use VA-TOBACCO FORMER USER 12/21/2021 [facility] History of tobacco use VA-TOBACCO USER EVERY DAY 12/22/2020 [facility] History of tobacco use VA-TOBACCO QUIT < 1 YEAR 12/11/2018 [facility] History of tobacco use TOBACCO USER OFFERED MEDS 08/12/2017 [facility] History of tobacco use TOBACCO OFFERED STOP [facility]MOKING CLINIC 03/20/2015 [facility] History of tobacco use TOBACCO OFFERED STOP SMOKING CLINIC 01/14/2014 [facility] History of tobacco use TOBACCO OFFERED STOP SMOKING CLINIC 11/02/2012 [facility] History of tobacco use TOBACCO OFFERED PT MEDS (PROVIDER) 03/20/2012 [facility] History of tobacco use TOBACCO OFFERED PT MEDS (PROVIDER) 11/29/2011 [facility] History of tobacco use LIFETIME NON-USER OF TOBACCO 09/25/2010 [facility] History of tobacco use QUIT TOBACCO >12 MO and <7 YRS AGO 09/08/2009 [facility] History of tobacco use TOBACCO OFFERED STOP SMOKING CLINIC 11/11/2008 do not want [facility] History of tobacco use CURRENT TOBACCO USER 04/05/2008 [facility] History of tobacco use CURRENT TOBACCO USER 09/16/2007 [facility] History of tobacco use TOBACCO OFFERED STOP SMOKING CLINIC 05/12/2007 do not want to quit smoking [facility] History of tobacco use CURRENT TOBACCO USER 11/28/2006 [facility] History of tobacco use CURRENT TOBACCO USER 08/22/2006 ILIA GARCIA [facility] History of tobacco use CURRENT TOBACCO USER 07/28/2006 [facility] History of tobacco use CURRENT TOBACCO USER 04/14/2006 ILIA GARCIA [facility] Plan of Care List of future care activities from [facility] facilities. Additional future care activities may be listed in the Assessment and Plan section. Date/Time Care Activity Care Activity Detail Facili ty 03/19/2025 AMBULATORY - MEDICINE AMBULATORY - MEDICI NE [facility] Advance Directives List of completed, amended, or rescinded Advance Directives on record at [facility] facilities. An actual copy of the Directive is not included. Date Advance Directive Provider Source 11/24/2016 ADVANCE DIRECTIVE SHAYNA SHEN [facility] 05/21/2011 ADVANCE DIRECTIVE DISCUSSION ADAM SEYMOUR [facility] 2011 ADVANCE DIRECTIVE DISCUSSION ADAM SEYMOUR [facility] 05/07/2011 ADVANCE DIRECTIVE DISCUSSION ADAM SEYMOUR [facility]
--- NOTE | 2025-01-03 13:15 | XRR_ITS ---
PROCEDURE INFORMATION: Exam: XR Chest Exam date and time: 01/03/2025 1:30 PM Age: 84 years old Clinical indication: Cough and dyspnea; Additional info: Dyspnea/cough TECHNIQUE: Imaging protocol: Radiologic exam of the chest. Views: 1 view. COMPARISON: CR (CHEST, ) 11/24/2024 9:10 AM FINDINGS: Lungs: Left basilar consolidation. Right lung is clear. Pleural spaces: No sizable pleural effusion or pneumothorax. Heart/Mediastinum: No cardiomegaly. Bones/joints: Unremarkable. XR/XR chest 1V portable [id number] IMPRESSION: Left basilar consolidation, concerning for atelectasis or infiltrate.
--- NOTE | 2025-01-03 13:15 | ECG_ITS ---
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 Measurements Intervals [place] Rate: 64 P: 62 TN: 199 QRS: 8 QRSD: 110 T: 8 QT: 533 QTc: 553 Interpretive Statements SINUS RHYTHM WITH FREQUENT VENTRICULAR PREMATURE COMPLEXES PROLONGED QT INTERVAL CRITICAL TEST RESULT Compared to ECG 11/25/2024 09:21:51 Prolonged QT interval now present Atrial flutter no longer present Aberrant conduction of supraventricular beat(s) no longer present Intraventricular conduction delay no longer present T-wave abnormality no longer present Electronically Signed On 01-04-2025 13:52:04 CDT by Antonio Apodaca M.D. [email or web address] ([email or web address] [id number]
--- NOTE | 2025-01-03 13:20 | PC.NURSE ---
educated pt on need for urine sample, discussed urinal and straight catheter, pt refusing catheter; states he urinated prior to leaving house to come to ED.
--- OUTSIDE RECORDS SUMMARY | 2025-01-03 13:26 | XMS_ITS | Encounter Summary ---
Author Organization [employer] Address 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
--- OUTSIDE RECORDS SUMMARY | 2025-01-03 13:26 | XMS_ITS | Patient Health Record ---
Author Organization [facility] Address [address] [place], [place] [address] Care Team Providers Care Access Database Developer Name Role Phone Diamond EASLEY, Sachin Unavailable [phone] [place] Unavailable Unavailable Reason For Referral No Information Social History Tobacco Use: Social History Observation Description Date Details (start date - stop date) Former Smoker NA - NA Tobacco use: Question Answer Notes : former smoker When did you stop smoking? 2008 Problems Problem Type SNOMED Code ICD Code Onset Dates Problem Status W/U Status Risk Notes Problem Low back pain (518542693) Low back pain, unspecified (M54.50) Active confirmed Plan Of Treatment No Information Insurance Providers Payer Name Payer Address Payer Phone Subscriber Number Group Number Insured Name Patient Relationship to Insured Coverage Start Date Coverage End Date [employer] [address] [place] [address] NEED SSN Reginald Pelaez Self - patient [...]
--- OUTSIDE RECORDS SUMMARY | 2025-01-03 13:26 | XMS_ITS | Patient Health Record ---
Author Organization [facility] Address [address] [place] [address] Care Team Providers Care Bureau Director Name Role Phone Jerome Sanon Unavailable [phone] Reason For Referral No Information Problems Problem Type SNOMED Code ICD Code Onset Dates Problem Status W/U Status Risk Notes Problem Gastroesophageal reflux disease (498158171) Acid reflux disease (530.81) 008 Active confirmed [id number] 911- Problem Generalized osteoarthritis (889320992) 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) 008 Active confirmed Christofer-[id number] 911- Problem Tobacco user (052163139) Cigarette smoking (305.1) 008 Problem resolved confirmed Christofer-[id number] 911- Problem General examination of patient (932036099) Annual exam (V70.0) 008 Problem resolved confirmed [id number]-985 911- Problem Thyroid function tests abnormal (385807980) Abnormal thyroid findings (794.5) 008 Problem resolved confirmed Christofer-985 911- Plan Of Treatment No Information Medical (General) History Surgical History Surgery Date(Month/Year) NONE
--- OUTSIDE RECORDS SUMMARY | 2025-01-03 13:27 | XMS_ITS | Patient Health Record ---
Author Organization [facility] Address [address] [place] [address] Care Team Providers Care Automobile Mechanic Name Role Phone [facility] Primary Care Provider ED Ramesh Unavailable [phone] MeKevin Unavailable Unavailable DAVIN HOWARD Unavailable [phone] Allergies No Known Allergies Reason For Referral [...] capsules orally once a day in the evening; Duration: 30 days Active Tiotropium [place] Monohydrate 18 MCG 1 capsule by inhaling [...] Status Risk Notes Problem Benign prostatic hyperplasia (281255010) BPH (benign prostatic hyperplasia) (N40.0) Active confirmed Plan Of Treatment Pending Test Test Name Order Date PSA, TOTAL (5363) 11/01/2023 Bladder Scan 11/01/2023 Insurance Providers Payer Name Payer Address Payer Phone Subscriber Number Group Number Insured Name Patient Relationship to Insured Coverage Start Date Coverage End Date [employer] [address] [place], [place] [id number] Reginald Pelaez Self - patient is the insured Medical (General) History Medical History History ICD Code alcohol abuse actinic keratosis gallstones vocal cord cancer COPD HTN hyperlipidemia PVD a fib cirrhosis vitamin d deficiency Surgical History Surgery Date(Month/Year) vocal cord cancer back surgery 2023 Hospitalization History Reason Date(Month/Year) surgery
--- OUTSIDE RECORDS SUMMARY | 2025-01-03 13:27 | XMS_ITS | Clinical Summary ---
Author Organization [facility] Address [address] [place] [address] Care Team Providers Care Geophysicist Name Role Phone Unavailable Primary Care Provider [...] 3 Active fluticasone propionate (FLONASE) 50 mcg/spray [place], Suspension nasal inhaler Administer in each nostril. 4 Active folic acid (FOLVITE) 1 mg tablet Take 1 mg by mouth. 3 Active furosemide (LASIX) 40 mg tablet Take 40 mg by mouth. 3 Active magnesium oxide (MAG-OX) 400 mg (241.3 mg magnesium) tablet Take 1 Tablet by mouth daily. 5 Active albuterol (PROVENTIL,VENTOL IN) 2.5 mg /3 mL (0.083 %) Solution [...] by mouth 1 time daily as needed. 4 Active Entresto 24-26 mg Tablet Take 1 Tablet by mouth 2 times daily. 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 1 Drop Right Eye ONE TIME ONLY 12/19/2024 Active phenylephrine 2.5 % ophthalmic solution 1 DropIndications:Chori oretinal scar, right,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 1 Drop Right Eye ONE TIME ONLY 12/19/2024 Active tropicamide (MYDRIACYL) 1 % ophthalmic solution 1 DropIndications:Chori oretinal scar, right,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 1 Drop Left Eye ONE TIME ONLY 12/19/2024 Active phenylephrine 2.5 % ophthalmic solution 1 DropIndications:Chori oretinal scar, right,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 1 Drop Left Eye ONE TIME ONLY 12/19/2024 Active Active Problems Problem Noted Date Diagnosed Date [...] Encounters Date Type Department Care Team Description 01/01/2025 External Device Data [facility] ABSTRACTION Provider, Abstract 12/12/2024 External Device Data [facility] ABSTRACTION Provider, Abstract 12/12/2024 External Device Data [facility] ABSTRACTION Provider, Abstract 10/17/2024 External Device Data [facility] ABSTRACTION Provider, Abstract 10/16/2024 External Device Data [facility] ABSTRACTION Provider, Abstract from Last 3 Months Immunizations Immunization Administration [...] on file 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 Gender Identity Not on file Sexual Orientation [...] 09/25/2024 1:40 PM CDT Plan of Treatment Health Maintenance Due Date Last Done Comments RSV VACCINE (60+ or ) (1 - 1-dose 75+ series) 2017 COVID-19 Vaccine (2023-2 5 season) 2024 03/16/2021, 08/27/2020, 07/30/2020 INFLUENZA VACCINE (#1) 2024 , 02/26/2021, 02/22/2020, Additional history exists DTAP/TDAP/TD VACCINES (3 - T d or Tdap) 12/22/2031 12/21/2021, 05/12/2012 ZOSTER VACCINE Completed 12/12/2017, 05/0 05/2017, 12/31/2011 PNEUMOCOCCAL VACCINE 50+ YEARS Completed 0 12/21/2021, 03/20/2015, 03/20/2012, Additional history exists Medical Devices Implanted Type Area Odd Piece Checker Device Identifier Shelf Expiration Date Model / Serial / Lot Oil Slc 8.5ml [id number] - [id number] Implanted:Qty: 1 on 08/28/2024 by Georgette Jiménez MD at [facility] Eye Left: Eye [employer] 05/29/2026 [id number] / / [id number] Description:[id number] Oil Slc 8.5ml [id number] - [id number] Implanted:Qty: 1 on 09/25/2024 by Georgette Jiménez MD at [facility] Eye Left: [employer] [id number] 05/29/2026 [id number] / / [id number] Oil Slc 8.5ml [id number] - [id number]:[id number] Implanted:Qty: 1 on 09/25/2024 by Georgette Jiménez MD at [facility] Eye Left: Eye [employer] 05/29/2026 [id number] / [id number] / [id number] Insurance RX [facility] Medicare Part D RX INFOCROSSING Medicaid * Guarantor: WENDI SAUNDERS-MARTÍN Huber (C) Account Type Relation to Patient Date of Phone Billing Address Corporate Other DEFAULT ADDRESS [address] [employer] [employer] [place] [address] [employer] Advance Directives For more information, please contact: [phone] * Full Code (Latest Code Status on File) Date Activated Date Inactivated Comments 09/25/2024 1:25 PM 09/26/2024 10:17 AM * Full Code Date Activated Date Inactivated Comments 08/28/2024 11:52 AM 08/28/2024 7:35 PM
--- NOTE | 2025-01-03 13:31 | W.ED.WEAKNES ---
HPI - Weakness General: Chief complaint: Weakness Stated complaint: hypotensive Time Seen by Provider: 01/03/25 13:14 History of Present Illness: 84-year-old male brought in by EMS with a complaint of weakness hypotension was noted while he was at physical therapy Associated symptoms: Denies chest pain, chills, dysuria or fever(s) Related Data Home Medications ?Medication ?Instructions ?Recorded ?Confirmed folic acid 1 mg tablet 1 mg PO DAILY 08/03/22 11/24/24 acetaminophen 325 mg tablet 650 mg PO Q6H PRN Pain/fever 08/19/22 11/24/24 (Tylenol) atorvastatin 80 mg tablet 40 mg PO QPM 12/05/23 11/24/24 Held on 11/27/24. Instructions: Resume on 12/11/24. magnesium oxide 400 mg (241.3 mg 400 mg PO DAILY 06/22/24 11/24/24 magnesium) tablet furosemide 40 mg tablet 40 mg PO DAILY 07/04/24 11/24/24 albuterol sulfate 2.5 mg/3 mL 2.5 mg inhalation Q6H PRN 11/24/24 11/24/24 (0.083 %) solution for nebulization Shortness Of Breath Or Wheezing montelukast 10 mg tablet 10 mg PO BEDTIME 11/24/24 11/24/24 polymyxin B sulfate 10,000 1 drp ophthalmic (eye) QID 11/24/24 11/24/24 unit-trimethoprim 1 mg/mL eye drops Previous Rx's ?Medication ?Instructions ?Recorded amiodarone 200 mg tablet (Pacerone) 200 mg PO DAILY #30 tabs 09/02/22 tamsulosin 0.4 mg capsule 0.4 mg PO QPM #30 caps 09/02/22 albuterol sulfate 90 mcg/actuation 2 inh inhalation Q6H PRN shortness 12/05/23 aerosol inhaler of breath or wheezing #8 grams potassium chloride 20 mEq See Rx Instructions .Route 01/03/24 tablet,extended release .COMPLEX #180 tabs L3221 orthopedic shoes #1 ea 04/10/24 meclizine 25 mg tablet 12.5 mg (1/2 x 25 mg) PO TID PRN 06/30/24 dizziness #30 tabs aspirin 81 mg capsule 81 mg PO DAILY #90 caps 11/27/24 Allergies Allergy/AdvReac Type Severity Reaction Status Date / Time No Known Allergies Allergy Verified 09/14/24 10:04 Review of Systems Const: Denies: fever(s) or chills Card: Denies: chest pain Resp: Denies: dyspnea GI: Denies: abdominal pain : Denies: dysuria, urinary frequency or urinary urgency Musc: Denies: neck pain or back pain Skin/Breast: Denies: rash PFSH ED PFSH: Medical History Moderate aortic stenosis Compression fracture Greater trochanteric bursitis of right hip Paroxysmal atrial fibrillation Cardiomyopathy Chronic systolic CHF (congestive heart failure) Systolic and diastolic with last known EF 45% in 2023 CAD (coronary artery disease) BPH loc w urin obs/LUTS Chronic decreased force of stream without RUTIs gross hematuria (previously prior to catheterization placement) or retention. 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, initial treatment with imiquimod, follows with Dr Gil Chronic alcohol use History of smoking Nicotine dependence, chewing tobacco, with other nicotine-induced disorders COPD (chronic obstructive pulmonary disease) Compression fx, lumbar spine 07/2022 L1, L3, L4 Lumbar disc disease with radiculopathy Amputated toe of left foot discharged from wound care 07/05/22, follows with Dr Brunner PAC (premature atrial contraction) Chronic hyponatremia Severe peripheral arterial disease Malignant neoplasm of glottis Claudication HTN (hypertension) History of nonmelanoma skin cancer Surgical History Status post kyphoplasty (08/06/22) L1, L3, L4 S/P right coronary artery (RCA) stent placement (08/30/22) S/P peripheral artery angioplasty with stent placement 12/2021 Left common/External Iliac Artery with 80% stenosis treated with AB ARMADA [id number]. 8.0 x 19 mm Omnilink stent was placed. Left Proximal Superficial Femoral Artery with 80-90 % stenosis treated with AB ARMADA 35 [id number]. 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 History of hip surgery right hip fracture repair Family History Other No pertinent family history Social History Smoking and tobacco/nicotine status: never used tobacco/nicotine Alcohol intake: current Alcohol type: hard liquor Substance/Drug Use: current Substance/Drug use frequency: Special occassions/opportunity only Lives independently: Yes Household members: none Housing: House Physical Exam Const: GENERAL APPEARANCE: cooperative ORIENTATION/CONSCIOUSNESS: Yes awake, Yes oriented to person, Yes oriented to place and Yes oriented to time HENMT: COMMON NORMALS: normocephalic, atraumatic and hearing grossly normal bilaterally HEAD & SCALP: normocephalic and atraumatic Resp: COMMON NORMALS: normal respiratory effort, No retractions, No use of accessory muscles and clear to auscultation bilaterally AUSCULTATION: clear to auscultation bilaterally Cardio: COMMON NORMALS: regular rate, regular rhythm and No murmurs present (Cardio) RATE: regular rate RHYTHM: regular rhythm GI: COMMON NORMALS: Soft to palpation and No hepatosplenomegaly present AUSCULTATION: Yes normoactive bowel sounds PALPATION: Yes Soft to palpation, No Tenderness to palpation present (GI), No Guarding due to palpation present (GI) and Yes No hepatosplenomegaly present Extremity: COMMON NORMALS: normal to inspection, capillary refill normal, no clubbing, cyanosis or edema, no calf tenderness and no pedal edema Neuro: SENSORIUM/ORIENTATION: Yes oriented to person, Yes oriented to place and Yes oriented to time Skin: COMMON NORMALS: no rashes or lesions noted GENERAL SKIN EXAM: no rashes or lesions noted Course Vital Signs: Vital signs: Vital Signs Temperature 98.2 F 01/03/25 13:14 Pulse Rate 78 01/03/25 13:14 Respiratory Rate 29 H 01/03/25 13:14 Blood Pressure 76/41 01/03/25 13:14 Pulse Oximetry 95 01/03/25 13:14 Oxygen Delivery Me thod Room Air 01/03/25 13:14 MDM - Weakness Lab Data 01/03/25 13:20 01/03/25 13:20 Discharge Plan Discharge Condition: Stable Prescriptions: No Action (DME) L3221 orthopedic shoes See Rx Instructions .Route .MEDSUPPLY Qty: 1 0RF Rx Instructions: As directed to the shoe rene furosemide 40 mg tablet 40 mg PO DAILY potassium chloride 20 mEq tablet extended release See Rx Instructions .ROUTE .COMPLEX Qty: 180 2RF Dose Instruction: TAKE 1 TABLET BY MOUTH TWICE DAILY; HOLD IF YOU DO NOT TAKE LASIX Rx Instructions: TAKE 1 TABLET BY MOUTH TWICE DAILY; HOLD IF YOU DO NOT TAKE LASIX acetaminophen [Tylenol] 325 mg Tablet 650 mg PO Q6H PRN (Reason: Pain/fever) amiodarone [Pacerone] 200 mg Tablet 200 mg PO DAILY Qty: 30 0RF tamsulosin 0.4 mg Capsule 0.4 mg PO QPM Qty: 30 0RF atorvastatin 80 mg tablet 40 mg PO QPM albuterol sulfate 90 mcg/actuation HFA aerosol inhaler 2 inh INHALATION Q6H PRN (Reason: shortness of breath or wheezing) Qty: 8 0RF albuterol sulfate 2.5 mg /3 mL (0.083 %) solution for nebulization 2.5 mg inhalation Q6H PRN (Reason: Shortness Of Breath Or Wheezing) polymyxin B sulf-trimethoprim 10,000 unit- 1 mg/mL drops 1 drp ophthalmic (eye) QID montelukast 10 mg Tablet 10 mg PO BEDTIME aspirin 81 mg capsule 81 mg PO DAILY Qty: 90 0RF folic acid 1 mg Tablet 1 mg PO DAILY magnesium oxide 400 mg (241.3 mg magnesium) tablet 400 mg PO DAILY meclizine 25 mg tablet 12.5 mg PO TID PRN (Reason: dizziness) Qty: 30 0RF Referrals: [place] APRN [Primary Care Provider, Family Practice] Print Language: Russian Coding Level of Care Code ED Airplane Inspector for Jorge Betancourt
[2025-01-03 13:34] LABS: Hematocrit 35.1 % (37-53); Hemoglobin 11.30 g/dL (11.27-16.99); Mean Corpuscular HGB Conc 32.2 g/dL (30-55); Mean Corpuscular Hemoglobin 26.7 pg (27-33); Mean Corpuscular Volume 82.8 fl (82-101); Nucleated Red Blood Cells % 0 %; Platelet Count 682 10^3/cmm (157-399); Red Blood Count 4.24 10^6/uL (3.85-5.65); White Blood Count 9.00 10^3/uL (3.29-11.43)
--- NOTE | 2025-01-03 13:39 | PC.NURSE ---
discussed need for urine sample within 30 min of arrival to room, pt firmly denying straight catheter; urinal and call light given to pt.
[2025-01-03 13:51] LABS: Troponin(5th) Baseline 53 ng/L (0-15)
[2025-01-03 13:52] LABS: Alanine Aminotransferase 8 U/L (0-41); Albumin Level 3.3 g/dL (3.5-5.2); Alkaline Phosphatase 206 U/L (40-130); Anion Gap 16.7 (5-19); Aspartate Amino Transferase 17 U/L (0-40); Blood Urea Nitrogen 16 mg/dL (8-23); Calcium 8.8 mg/dL (8.5-10.5); Carbon Dioxide 25 mmol/L (22-29); Chloride 93 mmol/L (98-107); Creatinine Clr Calc Pharmacy 37.9814; Globulin 3.6 g/dL (1.3-4.6); Glucose 114 mg/dL (65-115); Osmolality Calculated 276 mOsm/kg (285-295); Sodium 132 mmol/L (136-145); Total Protein 6.9 g/dL (6.6-8.7)
[2025-01-03 14:00] LABS: Potassium 2.7 mmol/L (3.5-5.1)
--- NOTE | 2025-01-03 14:22 | PC.PHAR ---
Patient states he doesn't know his medication adn his nurse Annette does. Spoke to Annette and she states she sets his medication up on Fridays adn is't sure if he has taken it till following tuesday. Annette states patient is bad at taking his medications and sometime won't take it for a week .Annette is with [facility] .
[2025-01-03] MEDS: potassium chloride oral liq 20 mEq/15 mL UDC 60 MEQ PO (14:25)
[2025-01-03 14:59] LABS: Magnesium 1.9 mg/dL (1.7-2.3)
[2025-01-03 15:50] LABS: Troponin 5 2HR 47.94 ng/L (0-15); Troponin 5 2HR Delta -5.06 ABS# (0-10)
--- NOTE | 2025-01-03 16:01 | ECG_ITS ---
[facility] 2025[facility]03 Pat Name: Reginald Pelaez Department: Room: ICU10 Gender: Male [employer]: : 1940 Requested By: Clemente Fine Order Number: [id number] Marcella MD: Antonio Apodaca M.D. Measurements Intervals [place] Rate: 63 P: 45 RI: 199 QRS: 37 QRSD: 117 T: 17 QT: 478 QTc: 493 Interpretive Statements SINUS RHYTHM WITH OCCASIONAL SUPRAVENTRICULAR PREMATURE COMPLEXES POSSIBLE LATERAL MYOCARDIAL INFARCTION , PROBABLY OLD [30 ms Q WAVE IN I/aVL/V5/V6] Compared to ECG 01/03/2025 13:18:50 Myocardial infarct finding now present Ventricular premature complex(es) no longer present Prolonged QT interval no longer present Electronically Signed On 01-04-2025 14:02:38 CDT by Antonio Apodaca M.D. [email or web address]
--- NOTE | 2025-01-03 16:50 | PC.NURSE ---
Pt admitted to [facility] from Ed. Pt alert and oriented. 2 peripheral IV sites noted, Bilat AC. Pt has dry skin. Pt noted to have scabs on both legs. Pt stated it was from a sunburn. The right leg scab is on the medial aspect of his upper knee . The right scab is on his thigh. Pt has said 'Huh? multiple times during admission assessment, he is hard of hearing.
--- NOTE | 2025-01-03 19:15 | ECG_ITS ---
[facility]: 2025-01-03 Pat Name: Reginald Pelaez Department: Room: ICU10 Gender: Male [employer]: : 1940 Requested By: Clemente Fine Order Number: [id number] Marcella MD: Antonio Apodaca M.D. Measurements Intervals [place] Rate: 72 P: 97 WI: 221 QRS: 61 QRSD: 117 T: 17 QT: 465 QTc: 510 Interpretive Statements Possible SINUS RHYTHM WITH FIRST DEGREE AV BLOCK WITH FREQUENT VENTRICULAR PREMATURE COMPLEXES MODERATE INTRAVENTRICULAR CONDUCTION DELAY [110+ ms QRS DURATION] PROLONGED QT INTERVAL Compared to ECG 01/03/2025 16:01:08 Ventricular premature complex(es) now present First degree AV block now present Intraventricular conduction delay now present Prolonged QT interval now present Myocardial infarct finding no longer present Heavy baseline artifacts; Need to repeat the study. Electronically Signed On 01-04-2025 14:01:33 CDT by Antonio Apodaca M.D. [email or web address]
[2025-01-03] MEDS: albumin 25 G/100 ML BAG 60 G IV (19:46)
[2025-01-03 19:49] LABS: Troponin 5 6HR 37.03 ng/L (0-15)
[2025-01-03 19:57] LABS: Troponin 5 6HR Delta -15.97 ng/L (0-12)
[2025-01-03 20:18] LABS: Glucose Urine UA Negative (Normal); Nitrate Urine Negative (Negative); Specific Gravity, Urine 1.007 (1.005-1.030)
[2025-01-03 20:23] LABS: Add Urine Microscopic? YES
[2025-01-03 20:26] LABS: NT Pro B Type Natriuretic Pept 392 pg/mL (0-450); Procalcitonin 0.11 ng/mL (0-0.5)
--- NOTE | 2025-01-03 22:06 | PM.HP ---
Providers/Chief Complaint Admitting Physician: Krystal Castaneda MD Primary Care Provider: [place] Park APRN Chief Complaint: hypotensive History of Present Illness Reginald Pelaez is a 84 year old male with past medical history of CAD, post PCI to RCA, atrial fibrillation, systolic and diastolic heart failure moderate aortic valve stenosis, A fib, not on anticoagulation Per patient he was in his usual state of health, participating with physical therapy at home, When suddenly he started to feel dizzy. His therapist checked his blood pressure at home, initial reading was with systolic in the 70s., on subsequent checks his systolic blood pressure continued to drop and was at 40 systolic when EMS was called. He was brought into the emergency room where he was noted to have hypotension with blood pressure of 76/44. He states he was dizzy with positional changes but not otherwise. He received IV fluid bolus and has been started on normal saline at 100 cc an hour. At the time of this assessment his blood pressure is 102/67 mmHg. Per review of chart, it appears patient was recently admitted to the hospital between November 24 to November 27, 2024 for similar hypotensive episodes. Extensive evaluation at that time did not reveal an obvious cause of the same. His serum cortisol was normal, as was his cosyntropin stimulation test. His antihypertensives were discontinued and his blood pressure did improve. It was attempted to add the Entresto back, however his blood pressure did not tolerate this addition. Echocardiogram was obtained which showed a normal EF of 50 to 55%, mild MVR, incidentally noted dilatation of the ascending aorta. Patient denies any chest pain today. Denies any shortness of breath. He has no other symptoms other than the dizziness related to the hypotension. On his last admission he did have speech therapy evaluation and a modified barium swallow due to concern for aspiration. He was recommended to continue moderately thick liquid with double swallows and supraglottic swallows. His statin was held as it was thought that this could be contributing to weakness though CK was normal. During the last admission he had a brief episode of A-fib for which she was maintained on amiodarone. He has not been started on anticoagulation due to risk of fall and bleeding. He only takes aspirin 81 mg p.o. daily He has not noticed any bleeding recently. His hemoglobin is currently stable upon arrival at 11.3. He denies any fever chills cough nausea or URI type symptoms. He has not had any abdominal pain nausea vomiting or diarrhea. Chest x-ray today is showing a left basilar atelectasis per personal interpretation. There is no change compared to previous. urinalysis is unremarkable. Review of Systems General: Reports: 10 or more systems reviewed and unremarkable except in HPI and below Const: Denies: fever(s), chills or body aches Eyes: Denies: change in vision, blurry vision or photophobia ENMT: Reports: hoarseness; Denies: throat pain, enlarged tonsils, odynophagia or nasal congestion Card: Denies: chest pain, palpitations, irregular heart rhythm, edema, swelling of feet/ankles, lightheadedness, pre-syncope, dyspnea on exertion or orthopnea Resp: Denies: dyspnea, productive cough, non-productive cough, wheezing, stridor, pain on inspiration, change in phlegm color, hemoptysis or chest congestion GI: Denies: abdominal pain, nausea, vomiting, hematemesis, coffee ground emesis, dysphagia, heartburn, diarrhea, constipation, GI cramping, change in stool character, hematochezia or melena : Denies: flank pain, dysuria, urinary frequency, urinary urgency, urinary hesitancy or hematuria Musc: Denies: neck pain, back pain, extremity pain, joint swelling, joint warmth or deformity Neuro: Denies: headache(s), numbness in extremities, weakness in extremities, sensory changes, difficulty walking, frequent falls, dizziness, vertigo, behavioral changes, Slurred speech present or seizure-like activity Psych: Denies: anxiety, depression, suicidal ideation or homicidal ideation Endo: Denies: polyuria, polydipsia, tired all the time, cold intolerance or hot flashes Brien/Lymph: Denies: easy bruising or easy bleeding Medications/Allergies Home Medications ?Medication ?Instructions ?Recorded ?Confirmed ?Last Taken ?Type acetaminophen 325 mg tablet 650 mg PO Q6H PRN Pain/fever 08/19/22 01/03/25 Unknown History (Tylenol) amiodarone 200 mg tablet (Pacerone) 200 mg PO DAILY #30 tabs 09/02/22 01/03/25 01/03/25 Rx tamsulosin 0.4 mg capsule 0.4 mg PO QPM #30 caps 09/02/22 01/03/25 01/02/25 19:00 Rx albuterol sulfate 90 mcg/actuation 2 inh inhalation Q6H PRN shortness 12/05/23 01/03/25 Unknown Rx aerosol inhaler of breath or wheezing #8 grams atorvastatin 80 mg tablet 40 mg PO QPM 12/05/23 01/03/25 12/04/23 History Held on 11/27/24. Instructions: Resume on 12/11/24. potassium chloride 20 mEq See Rx Instructions .Route 01/03/24 01/03/25 01/03/25 Rx tablet,extended release .COMPLEX #180 tabs [id number] orthopedic shoes #1 ea 04/10/24 01/03/25 Unknown Rx furosemide 40 mg tablet 40 mg PO DAILY 07/04/24 01/03/25 01/03/25 History albuterol sulfate 2.5 mg/3 mL 2.5 mg inhalation Q6H PRN 11/24/24 01/03/25 Unknown History (0.083 %) solution for nebulization Shortness Of Breath Or Wheezing montelukast 10 mg tablet 10 mg PO BEDTIME 11/24/24 01/03/25 01/02/25 19:00 History polymyxin B sulfate 10,000 1 drp ophthalmic (eye) QID 11/24/24 01/03/25 01/02/25 History unit-trimethoprim 1 mg/mL eye drops aspirin 81 mg capsule 81 mg PO DAILY #90 caps 11/27/24 01/03/25 Unknown Rx Allergies Allergy/AdvReac Type Severity Reaction Status Date / Time No Known Allergies Allergy Verified 09/14/24 10:04 PFSH Acute PFSH: Medical History Moderate aortic stenosis Compression fracture Greater trochanteric bursitis of right hip Paroxysmal atrial fibrillation Cardiomyopathy Chronic systolic CHF (congestive heart failure) Systolic and diastolic with last known EF 45% in 2023 CAD (coronary artery disease) BPH loc w urin obs/LUTS Chronic decreased force of stream without RUTIs gross hematuria (previously prior to catheterization placement) or retention. 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, initial treatment with imiquimod, follows with Dr Gil Chronic alcohol use History of smoking Nicotine dependence, chewing tobacco, with other nicotine-induced disorders COPD (chronic obstructive pulmonary disease) Compression fx, lumbar spine 07/2022 L1, L3, L4 Lumbar disc disease with radiculopathy Amputated toe of left foot discharged from wound care 07/05/22, follows with Dr Brunner PAC (premature atrial contraction) Chronic hyponatremia Severe peripheral arterial disease Malignant neoplasm of glottis Claudication HTN (hypertension) History of nonmelanoma skin cancer Surgical History Status post kyphoplasty (08/06/22) L1, L3, L4 S/P right coronary artery (RCA) stent placement (08/30/22) S/P peripheral artery angioplasty with stent placement 12/2021 Left common/External Iliac Artery with 80% stenosis treated with AB ARMADA [id number]. 8.0 x 19 mm Omnilink stent was placed. Left Proximal Superficial Femoral Artery with 80-90 % stenosis treated with AB ARMADA 35 [id number]. 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 History of hip surgery right hip fracture repair Family History Other No pertinent family history Social History Smoking and tobacco/nicotine status: never used tobacco/nicotine Alcohol intake: current Alcohol type: hard liquor Substance/Drug Use: current Substance/Drug use frequency: Special occassions/opportunity only Lives independently: Yes Household members: none Housing: House Vitals/I&O/Wt Last Vital Signs Temp 97.6 F 01/03/25 17:30 Pulse 72 01/03/25 22:00 Resp 20 H 01/03/25 22:00 BP 106/50 01/03/25 22:00 Pulse Ox 91 01/03/25 22:00 O2 Del Method Room Air 01/03/25 22:05 01/03/25 01/03/25 01/03/25 06:59 14:59 22:59 Intake Total 500 / 500 Output Total 730 / 730 Balance -230 / -230 Weight last 48 hrs Weight 70.76 kg Weight 70.76 kg Physical Exam Narrative: General: No acute distress, AO x3 HEENT: PERRLA, pupils bilaterally equal and reactive, pallors not present Chest: Normal vesicular breath sounds, no added sounds, equal good air entry bilaterally CVS: S1-S2 regular, no murmurs, no tachycardia, no gallops, no rubs Abdomen: Soft, nontender, no organomegaly, bowel sounds present Neuro: No focal deficits, no facial deformity, AO x3, power 5/5 in all limbs Urinary Catheter Management: Ahn: Cath Placed During This Visit: yes Reason for Continuing Indwelling Catheter: Acute Urinary Retention or Obstruction Urinary Catheter Date of Insertion: 01/03/25 Urinary Catheter Time of Insertion: 19:50 Data 01/04/25 04:27 01/04/25 04:27 A&P Assessment and plan 1. Hypotension: 2. Hypokalemia: 3. Prolonged QT interval: Plan: 84-year-old male with a past medical history as outlined above, presenting today with hypotension. Per available history it appears patient had an episode of orthostatic hypotension. There is no history of loss of consciousness. Recently had an extensive evaluation including an echocardiogram, cosyntropin test which did not reveal any obvious cause of the hypotension. Would not repeat the studies at this point in time. There is no history of GI losses. No history of bleeding. Hemoglobin is stable compared to last admission. Chart shows that he does take Lasix 40 mg p.o. daily. We will hold this for now. He is on normal saline at 75 cc an hour to maintain blood pressure which we will continue Add midodrine 10 mg p.o. every 8 hours and assess for response. Patient's antihypertensives were held on the last admission and he improved with this intervention. No current signs or symptoms of active infection. Chest x-ray is without infiltrate. Though x-ray makes note of possible consolidation versus atelectasis, per personal review of images, lack of cough, fever, leukocytosis, pneumonia is considered highly unlikely. Per personal interpretation x-ray has not changed compared to prior. Left lower lobe findings likely represent atelectasis. Potentially his orthostatic hypotension may be related to hypokalemia with's significantly low potassium of 2.7. He has received oral potassium supplementation in the emergency room. Will repeat a CMP to assess for improvement with supplementation. Additionally noted to have a prolonged QTc interval of 510 ms. Will administer magnesium 1 g IV now. Recheck QTc in a.m. Potentially prolonged QTc interval may have predisposed to arrhythmias which may have contributed to patient's symptoms. Will admit to observation with continuous telemetry monitoring to assess for this possibility. Will be monitored in the ICU overnight in case pressor support needs to be initiated with Levophed. PDMP PDMP Reviewed: Not Reviewed Attestations Medical Necessity Statement*: Less than 2 midnight stay is currently anticipated Coding Level of Care Code Acute Code for Chg Fwd Diagnoses Hypotension I95.9 Hypokalemia E87.6 Prolonged QT interval R94.31
[2025-01-03] MEDS: magnesium sulfate premix 1 GM/100 ML PIGGYBACK IV (22:24)
[2025-01-03 22:26] LABS: Anion Gap 17.0 (5-19); Blood Urea Nitrogen 14 mg/dL (8-23); Calcium 8.7 mg/dL (8.5-10.5); Carbon Dioxide 25 mmol/L (22-29); Chloride 97 mmol/L (98-107); Creatinine Clr Calc Pharmacy 40.6944; Glucose 100 mg/dL (65-115); Osmolality Calculated 281 mOsm/kg (285-295); Potassium 4.0 mmol/L (3.5-5.1); Sodium 135 mmol/L (136-145)
[2025-01-03 22:48] LABS: Lactic Sepsis W/Reflex 2.2 mmol/L (0.5-2.2)
[2025-01-04] VITALS (65 sets, daily range): BP systolic 70–152; BP diastolic 32–80; PULSE 0–107; RESP 12–26; TEMP 36.1–36.5; O2SAT 89–98
[2025-01-04 00:02] LABS: Reflex Lactate Order REFLEX LACTIC ORDERD
[2025-01-04] MEDS: artificial tears Op Soln 15 mL Btl 1 DROP EYE-BOTH (01:37)
[2025-01-04 01:41] LABS: Lactic Acid level (Lactate) 1.3 mmol/L (0.5-2.2)
[2025-01-04] MEDS: albumin 25 G/100 ML BAG 60 G IV (03:58)
[2025-01-04 04:46] LABS: Hematocrit 30.0 % (37-53); Hemoglobin 9.60 g/dL (11.27-16.99); Mean Corpuscular HGB Conc 32.0 g/dL (30-55); Mean Corpuscular Hemoglobin 27.0 pg (27-33); Mean Corpuscular Volume 84.5 fl (82-101); Nucleated Red Blood Cells % 0 %; Platelet Count 537 10^3/cmm (157-399); Red Blood Count 3.55 10^6/uL (3.85-5.65); White Blood Count 10.93 10^3/uL (3.29-11.43)
[2025-01-04 05:06] LABS: Alanine Aminotransferase 6 U/L (0-41); Albumin Level 2.8 g/dL (3.5-5.2); Alkaline Phosphatase 156 U/L (40-130); Anion Gap 13.1 (5-19); Aspartate Amino Transferase 13 U/L (0-40); Blood Urea Nitrogen 11 mg/dL (8-23); Calcium 8.3 mg/dL (8.5-10.5); Carbon Dioxide 25 mmol/L (22-29); Chloride 98 mmol/L (98-107); Creatinine Clr Calc Pharmacy 47.4768; Globulin 2.9 g/dL (1.3-4.6); Glucose 98 mg/dL (65-115); Magnesium 2.1 mg/dL (1.7-2.3); Osmolality Calculated 275 mOsm/kg (285-295); Potassium 3.1 mmol/L (3.5-5.1); Sodium 133 mmol/L (136-145); Total Protein 5.7 g/dL (6.6-8.7)
[2025-01-04] MEDS: methylPREDNISolone sod succ 125 mg/2 mL INJ IVP (05:58)
[2025-01-04] MEDS: diphenhydrAMINE 50 mg/mL SDV 1mL 25 MG IVP (05:58)
--- OUTSIDE RECORDS SUMMARY | 2025-01-04 07:39 | XMS_ITS | Patient Health Record ---
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
--- OUTSIDE RECORDS SUMMARY | 2025-01-04 07:39 | XMS_ITS | Encounter Summary ---
Author Organization [facility] Address 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
--- OUTSIDE RECORDS SUMMARY | 2025-01-04 07:39 | XMS_ITS | Patient Health Record ---
Author Organization [facility] Address [address] [place], [place] [id number] Care Team Providers Care Kelp Gatherer Name Role Phone Diamond EASLEY, Sachin Unavailable [phone] [place], [place] Unavailable Unavailable Reason For Referral No Information Social History Tobacco Use: Social History Observation Description Date Details (start date - stop date) Former Smoker NA - NA Tobacco use: Question Answer Notes : former smoker When did you stop smoking? 2008 Problems Problem Type SNOMED Code ICD Code Onset Dates Problem Status W/U Status Risk Notes Problem Low back pain (388246133) Low back pain, unspecified (M54.50) Active confirmed Plan Of Treatment No Information Insurance Providers Payer Name Payer Address Payer Phone Subscriber Number Group Number Insured Name Patient Relationship to Insured Coverage Start Date Coverage End Date [employer] [address] [place] [address] NEED SSN Reginald Pelaez Self - patient [...]
--- OUTSIDE RECORDS SUMMARY | 2025-01-04 07:40 | XMS_ITS | Clinical Summary ---
Author Organization [facility] Address [address] [place] [address] Care Team Providers Care Ada Accommodation Consultant Name Role Phone Unavailable Primary Care Provider [...] 3 Active fluticasone propionate (FLONASE) 50 mcg/spray [place], Suspension nasal inhaler Administer in each nostril. 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 Gender Identity Not on file Sexual Orientation [...] history exists Medical Devices Implanted Type Area Field Applications Specialist Device Identifier Shelf Expiration Date Model / Serial / Lot Oil Slc 8.5ml [id number] - [id number] Implanted:Qty: 1 on 08/28/2024 by Georgette Jiménez MD at [facility] Left: Eye [employer] 05/29/2026 [id number] / / [id number] Description:[id number] Oil Slc 8.5ml [id number] - [id number] Implanted:Qty: 1 on 09/25/2024 by Georgette Jiménez MD at [facility] Left: [employer] [id number] 05/29/2026 [id number] / / 121C0 Oil Slc 8.5ml [id number] - [id number]:[id number] Implanted:Qty: 1 on 09/25/2024 by Georgette Jiménez MD at [facility] Left: [employer] 05/29/2026 [id number] / [id number] / 121CO Insurance RX [facility] Medicare Part D RX [employer] Medicaid * Guarantor: WENDI SAUNDERS-MARTÍN Huber (C) Account Type Relation to Patient Date of Phone Billing Address Corporate Other DEFAULT ADDRESS [address] [employer] [place] [address] [employer] Advance Directives For more information, please contact: [phone] * Full Code (Latest Code Status on File) Date Activated Date Inactivated Comments 09/25/2024 1:25 PM 09/26/2024 10:17 AM * Full Code Date Activated Date Inactivated Comments 08/28/2024 11:52 AM 08/28/2024 7:35 PM
--- OUTSIDE RECORDS SUMMARY | 2025-01-04 07:40 | XMS_ITS | Patient Health Record ---
Author Organization [facility] Address [address] [place] [address] Care Team Providers Care Resident Athletic Trainer Name Role Phone [facility] Primary Care Provider ED Ramesh Unavailable [phone] IlKevin Unavailable Unavailable DAVIN HOWARD Unavailable [phone] Allergies No Known Allergies Reason For Referral [...] the evening; Duration: 30 days Active Tiotropium [place] Monohydrate 18 MCG 1 capsule by inhaling [...] Problem Status W/U Status Risk Notes Problem BPH (benign prostatic hyperplasia) (N40.0) Active confirmed Plan Of Treatment Pending Test Test Name Order Date PSA, TOTAL (5363) 11/01/2023 Bladder Scan 11/01/2023 Insurance Providers Payer Name Payer Address Payer Phone Subscriber Number Group Number Insured Name Patient Relationship to Insured Coverage Start Date Coverage End Date [employer] [address] [place] [id number] Reginald Pelaez Self - patient is the insured Medical (General) History Medical History History ICD Code alcohol abuse actinic keratosis gallstones vocal cord cancer COPD HTN hyperlipidemia PVD a fib cirrhosis vitamin d deficiency Surgical History Surgery Date(Month/Year) vocal cord cancer back surgery 2023 Hospitalization History Reason Date(Month/Year) surgery
--- NOTE | 2025-01-04 09:25 | P.PN_ITS ---
Subjective 2 Subjective: Patient is sleepy this morning. States that he would like to defer examination at this time as he had a rough night and would like to sleep. Medications: Reviewed: Yes Vitals/I&O/Wt Last Vital Signs Temp 96.9 F L 01/04/25 07:45 Pulse 60 01/04/25 07:45 Resp 18 01/04/25 07:45 BP 105/55 01/04/25 07:45 Pulse Ox 92 01/04/25 07:45 O2 Del Method Room Air 01/04/25 07:45 01/03/25 01/04/25 01/04/25 22:59 06:59 14:59 Intake Total 1096.667 / 1096.667 351.25 / 1447.917 Output Total 730 / 730 950 / 1680 Balance 366.667 / 366.667 -598.75 / -232.083 Weight last 48 hrs Weight 70.534 kg Weight 70.76 kg Weight 70.76 kg Physical Exam 2 Narrative: General: No acute distress, AO x3, wishes to defer exam for now , stets he would like to sleep and be examined later. Urinary Catheter Management: Ahn: Cath Placed During This Visit: yes Reason for Continuing Indwelling Catheter: Accurate Measurement of Urinary Output in Critically Ill Patients Urinary Catheter Date of Insertion: 01/03/25 Urinary Catheter Time of Insertion: 19:50 Data 01/04/25 04:27 01/04/25 04:27 A&P Assessment and plan 1. Hypotension: 2. Hypokalemia: 3. Prolonged QT interval: Plan: 84-year-old male with a past medical history as outlined above, presenting today with hypotension. Per available history it appears patient had an episode of orthostatic hypotension. There is no history of loss of consciousness. Recently had an extensive evaluation including an echocardiogram, cosyntropin test which did not reveal any obvious cause of the hypotension. Would not repeat the studies at this point in time. There is no history of GI losses. No history of bleeding. Hemoglobin is stable compared to last admission. Chart shows that he does take Lasix 40 mg p.o. daily. We will hold this for now. He is on normal saline at 75 cc an hour to maintain blood pressure which we will continue Add midodrine 10 mg p.o. every 8 hours and assess for response. Patient's antihypertensives were held on the last admission and he improved with this intervention. No current signs or symptoms of active infection. Chest x-ray is without infiltrate. Though x-ray makes note of possible consolidation versus atelectasis, per personal review of images, lack of cough, fever, leukocytosis, pneumonia is considered highly unlikely. Per personal interpretation x-ray has not changed compared to prior. Left lower lobe findings likely represent atelectasis. Potentially his orthostatic hypotension may be related to hypokalemia with's significantly low potassium of 2.7. He has received oral potassium supplementation in the emergency room. Will repeat a CMP to assess for improvement with supplementation. Additionally noted to have a prolonged QTc interval of 510 ms. Will administer magnesium 1 g IV now. Recheck QTc in a.m. Potentially prolonged QTc interval may have predisposed to arrhythmias which may have contributed to patient's symptoms. Will admit to observation with continuous telemetry monitoring to assess for this possibility. Will be monitored in the ICU overnight in case pressor support needs to be initiated with Levophed. 01/04/25: Overnight was found to have urinary retention for which Ahn catheter was placed yielding 1600 cc of urine. Blood pressure is better maintained this morning 105/55. He was ordered for Levophed however this did not need to be started eventually. He is currently on midodrine 10 mg p.o. every 6 hours. Per nursing report he received albumin last night but had broken out in a rash right after for which she received Benadryl 25 mg IV at 530 this morning. This is likely contributing to his somnolence today. Additionally received methylprednisolone 125 mg x 1. His rash is currently improving. Discontinue IV fluids today to minimize risk of fluid overload in the setting of known cardiomyopathy. Will obtain orthostatic blood pressure after discontinuing IV fluids. Repeat EKG to assess QTc intervals this morning. No arrhythmia on telemetry overnight. Saturating 92% on room air. Heart rate 60/min. PDMP PDMP Reviewed: Not Reviewed Attestations 2 Medical Necessity Statement*: Patient is somnolent this morning after having received Benadryl earlier for a diffuse rash suspected to be related to albumin infusion. Continuing midodrine at this time. Need to assess orthostatics after discontinuing IV fluids. Coding Level of Care Code Acute Code for Chg Fwd Moderate MDM includes number and complexity of problems actively addressed during encounter, amount and/or complexity of data reviewed/ordered and described risk of complication, morbidity or mortality of management as documented Diagnoses Hypotension I95.9 Hypokalemia E87.6 Prolonged QT interval R94.31
[2025-01-04] MEDS: polymyxin-trimethoprim Op Soln 10 mL Btl 1 DROP EYE-LEFT ×4 (10:38→21:14)
--- NOTE | 2025-01-04 11:22 | ECG_ITS ---
[facility] Date: 2025-01-04 Pat Name: Reginald Pelaez Department: Room: ICU10 Gender: Male Body Former: : 1940 Requested By: Krystal Castaneda Order Number: [id number] Marcella MD: Antonio Apodaca M.D. Measurements Intervals [place] Rate: 67 P: 73 MD: 213 QRS: -3 QRSD: 117 T: 34 QT: 489 QTc: 518 Interpretive Statements SINUS RHYTHM WITH FIRST DEGREE AV BLOCK WITH OCCASIONAL VENTRICULAR PREMATURE COMPLEXES MODERATE INTRAVENTRICULAR CONDUCTION DELAY [110+ ms QRS DURATION] PROLONGED QT INTERVAL CRITICAL TEST RESULT Compared to ECG 01/03/2025 20:14:09 No significant changes Electronically Signed On 01-04-2025 13:55:26 CDT by Antonio Apodaca M.D. [email or web address]
--- NOTE | 2025-01-04 15:09 | PC.SOCIAL ---
IMM UPDATED IMM dated and initialed, copy given to patient and copy placed in chart.
--- NOTE | 2025-01-04 18:47 | PC.NURSE ---
Shift summary; Pt has rested with his eyes closed while in the recliner for the majority of the shift. He did rouse awake for lunch and dinner. He did take his oral medications. Sinus, first degree block noted on monitor. VSS. Afebrile. Orthostatic VS checked today. He does have orthostatic hypotension, when he stood BP dropped to 70/55 while his heart rate jumped up to 107 from 80's. He had most of his lunch and dinner. He did not have much oral liquid intake. 850 ml of pale yellow urine output per rod noted. NO reports of pain this shift.
[2025-01-05] VITALS (27 sets, daily range): BP systolic 80–135; BP diastolic 44–69; PULSE 57–86; RESP 13–26; TEMP 36.4–36.8; O2SAT 85–98
[2025-01-05 05:34] LABS: Hematocrit 31.4 % (37-53); Hemoglobin 9.90 g/dL (11.27-16.99); Mean Corpuscular HGB Conc 31.5 g/dL (30-55); Mean Corpuscular Hemoglobin 26.7 pg (27-33); Mean Corpuscular Volume 84.6 fl (82-101); Nucleated Red Blood Cells % 0 %; Platelet Count 586 10^3/cmm (157-399); Red Blood Count 3.71 10^6/uL (3.85-5.65); White Blood Count 16.52 10^3/uL (3.29-11.43)
[2025-01-05 05:54] LABS: Alanine Aminotransferase 6 U/L (0-41); Albumin Level 3.1 g/dL (3.5-5.2); Alkaline Phosphatase 145 U/L (40-130); Anion Gap 14.8 (5-19); Aspartate Amino Transferase 12 U/L (0-40); Blood Urea Nitrogen 13 mg/dL (8-23); Calcium 8.3 mg/dL (8.5-10.5); Carbon Dioxide 21 mmol/L (22-29); Chloride 102 mmol/L (98-107); Creatinine Clr Calc Pharmacy 63.2214; Globulin 2.8 g/dL (1.3-4.6); Glucose 145 mg/dL (65-115); Magnesium 2.0 mg/dL (1.7-2.3); Osmolality Calculated 281 mOsm/kg (285-295); Potassium 3.8 mmol/L (3.5-5.1); Sodium 134 mmol/L (136-145); Total Protein 5.9 g/dL (6.6-8.7)
[2025-01-05] MEDS: polymyxin-trimethoprim Op Soln 10 mL Btl 1 DROP EYE-LEFT ×4 (08:03→20:20)
--- NOTE | 2025-01-05 09:35 | ECG_ITS ---
[facility]25[facility]05 Pat Name: Reginald Pelaez Department: Room: ICU10 Gender: Male Party Bus Driver: : 1940 Requested By: Krystal Castaneda Order Number: [id number] Reading MD: ALPESH MCCLURE Measurements Intervals [place] Rate: 60 P: -31 MD: 212 QRS: -5 QRSD: 145 T: 3 QT: 498 QTc: 502 Interpretive Statements SINUS RHYTHM WITH FIRST DEGREE AV BLOCK WITH OCCASIONAL ECTOPIC PREMATURE COMPLEXES INTRAVENTRICULAR CONDUCTION DELAY [130+ ms QRS DURATION] Compared to ECG 01/04/2025 11:22:00 Ventricular premature complex(es) no longer present Prolonged QT interval no longer present Electronically Signed On 01-08-2025 20:06:52 CDT by ALPESH MCCLURE [email or web address]
--- NOTE | 2025-01-05 11:37 | XRR_ITS ---
PROCEDURE INFORMATION: Exam: XR Chest Exam date and time: 01/05/2025 2:19 PM Age: 84 years old Clinical indication: Cough; Additional info: Possible aspiration TECHNIQUE: Imaging protocol: Radiologic exam of the chest. Views: 1 view. COMPARISON: CR XR chest 1V portable [id number] 01/03/2025 1:30 PM FINDINGS: Lungs: Slight interstitial prominence at the right lung base laterally. Pleural spaces: Slight blunting of the left costophrenic sulcus which could be secondary to very small left pleural effusion. There may be mild opacity or atelectasis at the left lung base in the retrocardiac region. Heart/Mediastinum: Unremarkable. No cardiomegaly. Bones/joints: Unremarkable. XR/XR chest 1V portable [id number] IMPRESSION: Bibasilar opacities as described.
--- NOTE | 2025-01-05 12:05 | PC.NURSE ---
Friends/POEmil at bedside and sister Karolyn on phone with patient and friends. Patient stating that he does not want to do this anymore. Dr. Montano at bedside and had goals of care discussion with family, patient, and friends. Code status remains full code, discussing comfort care/hospice for patient.
[2025-01-05 12:25] LABS: Procalcitonin 0.08 ng/mL (0-0.5)
[2025-01-05] MEDS: piperacillin-tazobactam 3.375 GM in sodium chloride 0.9% (plus) 50 ML IV ×2 (12:35→20:21)
[2025-01-05 14:03] LABS: Coronavirus 229E,HKU1,NL63,OC4 Not Detected (NOT DETECT); Parainfluenza Virus Type 1 Not Detected (NOT DETECT); Parainfluenza Virus Type 2 Not Detected (NOT DETECT); Parainfluenza Virus Type 3 Not Detected (NOT DETECT); Parainfluenza Virus Type 4 Not Detected (NOT DETECT); SARS-COV-2 Not Detected (NOT DETECT)
--- NOTE | 2025-01-05 17:49 | P.PN_ITS ---
Subjective 2 Subjective: Patient is alert awake and oriented today. Orthostatics are better. He is upset at having to eat a dysphagia diet. WBC count has increased to 16,000 today. Medications: Reviewed: Yes Vitals/I&O/Wt Last Vital Signs Temp 98.0 F 01/05/25 16:00 Pulse 59 L 01/05/25 16:00 Resp 16 01/05/25 16:00 BP 121/58 01/05/25 16:00 Pulse Ox 95 01/05/25 16:00 O2 Del Method Room Air 01/05/25 16:00 O2 Flow Rate 2 01/05/25 07:44 01/05/25 01/05/25 01/05/25 06:59 14:59 22:59 Intake Total 1300.000 / 1300.000 50 / 1350.000 Output Total 400 / 1250 Balance -400 / -178.75 1300.000 / 1300.000 50 / 1350.000 Weight last 48 hrs Weight 70.534 kg Physical Exam 2 Narrative: General: No acute distress, AO x3, wishes to defer exam for now , stets he would like to sleep and be examined later. Urinary Catheter Management: Ahn: Cath Placed During This Visit: yes Reason for Continuing Indwelling Catheter: Accurate Measurement of Urinary Output in Critically Ill Patients Urinary Catheter Date of Insertion: 01/03/25 Urinary Catheter Time of Insertion: 19:50 Data 01/05/25 05:14 01/05/25 05:14 Micro: Microbiology 01/05/25 13:17 Blood Culture - Preliminary Blood SPECIMEN COLLECTED 01/05/25 13:15 Blood Culture - Preliminary Blood SPECIMEN COLLECTED A&P Assessment and plan 1. Hypotension: 2. Hypokalemia: 3. Prolonged QT interval: 4. Aspiration pneumonia: Plan: 84-year-old male with a past medical history as outlined above, presenting today with hypotension. Per available history it appears patient had an episode of orthostatic hypotension. There is no history of loss of consciousness. Recently had an extensive evaluation including an echocardiogram, cosyntropin test which did not reveal any obvious cause of the hypotension. Would not repeat the studies at this point in time. There is no history of GI losses. No history of bleeding. Hemoglobin is stable compared to last admission. Chart shows that he does take Lasix 40 mg p.o. daily. We will hold this for now. He is on normal saline at 75 cc an hour to maintain blood pressure which we will continue Add midodrine 10 mg p.o. every 8 hours and assess for response. Patient's antihypertensives were held on the last admission and he improved with this intervention. No current signs or symptoms of active infection. Chest x-ray is without infiltrate. Though x-ray makes note of possible consolidation versus atelectasis, per personal review of images, lack of cough, fever, leukocytosis, pneumonia is considered highly unlikely. Per personal interpretation x-ray has not changed compared to prior. Left lower lobe findings likely represent atelectasis. Potentially his orthostatic hypotension may be related to hypokalemia with's significantly low potassium of 2.7. He has received oral potassium supplementation in the emergency room. Will repeat a CMP to assess for improvement with supplementation. Additionally noted to have a prolonged QTc interval of 510 ms. Will administer magnesium 1 g IV now. Recheck QTc in a.m. Potentially prolonged QTc interval may have predisposed to arrhythmias which may have contributed to patient's symptoms. Will admit to observation with continuous telemetry monitoring to assess for this possibility. Will be monitored in the ICU overnight in case pressor support needs to be initiated with Levophed. 01/04/25: Overnight was found to have urinary retention for which Ahn catheter was placed yielding 1600 cc of urine. Blood pressure is better maintained this morning 105/55. He was ordered for Levophed however this did not need to be started eventually. He is currently on midodrine 10 mg p.o. every 6 hours. Per nursing report he received albumin last night but had broken out in a rash right after for which she received Benadryl 25 mg IV at 530 this morning. This is likely contributing to his somnolence today. Additionally received methylprednisolone 125 mg x 1. His rash is currently improving. Discontinue IV fluids today to minimize risk of fluid overload in the setting of known cardiomyopathy. Will obtain orthostatic blood pressure after discontinuing IV fluids. Repeat EKG to assess QTc intervals this morning. No arrhythmia on telemetry overnight. Saturating 92% on room air. Heart rate 60/min. January 05, 2025 Patient is alert and awake today. Orthostatics are better not dropping as significantly as before. His dizziness is improving. He continues to complain of itching though no obvious rashes seen today. White blood cell count at 16,000 today. Chest x-ray was taken due to concern for aspiration as patient was somnolent all day yesterday and has a history noted aspiration on barium swallow in the past. Per personal interpretation and radiological read, chest x-ray is showing bibasilar infiltrates concerning for aspiration pneumonia. Blood cultures taken and pending today. UA was unremarkable upon admission. Will start patient on piperacillin/tazobactam empirically. Obtain sputum culture if able to expectorate. Transfer out of ICU today with continued midodrine. Continue to monitor orthostatics. Monitor for any worsening of pneumonia and aspiration. Anticipate discharge in the upcoming 24 to 48 hours if blood pressure trend remained stable. PDMP PDMP Reviewed: Not Reviewed Attestations 2 Medical Necessity Statement*: Changed to inpatient admission in view of aspiration pneumonia and need for IV antibiotics at this point. Increasing white blood cell count. Coding Level of Care Code Acute Code for Chg Fwd Diagnoses Hypotension I95.9 Hypokalemia E87.6 Prolonged QT interval R94.31 Aspiration pneumonia J69.0
[2025-01-06] VITALS (15 sets, daily range): BP systolic 81–135; BP diastolic 52–81; PULSE 54–89; RESP 10–19; TEMP 36.5–36.8; O2SAT 89–95
[2025-01-06] MEDS: piperacillin-tazobactam 3.375 GM in sodium chloride 0.9% (plus) 50 ML IV (03:30)
[2025-01-06 05:24] LABS: Hematocrit 30.5 % (37-53); Hemoglobin 9.40 g/dL (11.27-16.99); Mean Corpuscular HGB Conc 30.8 g/dL (30-55); Mean Corpuscular Hemoglobin 26.3 pg (27-33); Mean Corpuscular Volume 85.2 fl (82-101); Nucleated Red Blood Cells % 0 %; Platelet Count 589 10^3/cmm (157-399); Red Blood Count 3.58 10^6/uL (3.85-5.65); White Blood Count 14.51 10^3/uL (3.29-11.43)
[2025-01-06 05:48] LABS: Alanine Aminotransferase 7 U/L (0-41); Albumin Level 3.0 g/dL (3.5-5.2); Alkaline Phosphatase 135 U/L (40-130); Anion Gap 13.5 (5-19); Aspartate Amino Transferase 13 U/L (0-40); Blood Urea Nitrogen 14 mg/dL (8-23); Calcium 8.2 mg/dL (8.5-10.5); Carbon Dioxide 23 mmol/L (22-29); Chloride 104 mmol/L (98-107); Creatinine Clr Calc Pharmacy 63.2214; Globulin 2.7 g/dL (1.3-4.6); Glucose 122 mg/dL (65-115); Osmolality Calculated 286 mOsm/kg (285-295); Potassium 3.5 mmol/L (3.5-5.1); Sodium 137 mmol/L (136-145); Total Protein 5.7 g/dL (6.6-8.7)
[2025-01-06] MEDS: polymyxin-trimethoprim Op Soln 10 mL Btl 1 DROP EYE-LEFT (08:31)
--- NOTE | 2025-01-06 12:00 | PC.NURSE ---
Ahn Catheter discontinued as ordered, tolerated well.
--- NOTE | 2025-01-06 17:33 | P.DS_ITS ---
Discharge Providers Date of Admission: 01/05/25 11:37 Date of Discharge: January 06, 2025 Attending Provider at Admission: Krystal Castaneda MD Attending Provider at Discharge: Krystal Castaneda MD Primary Care Provider: Madison Park APRN Diagnoses at Discharge Discharge Diagnosis 1. Hypotension: 2. Hypokalemia: 3. Prolonged QT interval: 4. Aspiration pneumonia: Reason for Visit Reason for Visit: hypotensive Hospital Course Hospital Course 84 year old male with past medical history of CAD, post PCI to RCA, atrial fibrillation, systolic and diastolic heart failure moderate aortic valve stenosis, A fib, not on anticoagulation Per patient he was in his usual state of health, participating with physical therapy at home, When suddenly he started to feel dizzy. His therapist checked his blood pressure at home, initial reading was with systolic in the 70s., on subsequent checks his systolic blood pressure continued to drop and was at 40 systolic when EMS was called. He was brought into the emergency room where he was noted to have hypotension with blood pressure of 76/44. He states he was dizzy with positional changes but not otherwise. He received IV fluid bolus and received IV fluid resuscitation. He was noted to be dehydrated upon admission. Patient takes Lasix 40 mg every day though he was not showing any signs of hypervolemia during the hospital stay while holding the Lasix. At the time of discharge 20 mg p.o. Lasix has been resumed as a as needed. He is instructed to take Lasix on the days if he starts to feel short of breath, notices lower extremity edema, or weight gain more than 3 pounds in 3 days. His therapist typically checks his weight at home. Patient's hospital course was complicated by multiple episodes of orthostatic hypotension for which midodrine 10 mg p.o. every 6 hours was started. With this his blood pressure improved. He did have a drop in blood pressure to 8 7 systolic today on orthostatic check, however he was asymptomatic did not report any dizziness. Patient reported that he has had a history of hypotension for a long time. States his blood pressure has ranged 80-90 systolic on multiple occasions in the past without any overt symptoms. When it dropped to 40 systolic on day of admission he did feel dizzy but this is no longer the case. He is clinically improving. Hospital course was complicated by development of aspiration pneumonia. Review of chart shows that patient's barium swallow has previously shown evidence of aspiration. He was recommended to continue with dysphagia 4 diet in the hospital with which she complied. However he states that he would likely not be following these instructions when he returns home. He was treated with IV piperacillin/tazobactam and is being discharged on oral Augmentin at the time of discharge. Per review of chart, it appears patient was recently admitted to the hospital between November 24 to November 27, 2024 for similar hypotensive episodes. Extensive evaluation at that time did not reveal an obvious cause of the same. His serum cortisol was normal, as was his cosyntropin stimulation test. His antihypertensives were discontinued and his blood pressure did improve. It was attempted to add the Entresto back, however his blood pressure did not tolerate this addition. Echocardiogram was obtained which showed a normal EF of 50 to 55%, mild MVR, incidentally noted dilatation of the ascending aorta. These tests were not repeated. Patient denies any chest pain today. Denies any shortness of breath. During the last admission he had a brief episode of A-fib for which she was maintained on amiodarone. Amiodarone has been held now due to prolonged QTc interval upon admission of 540 ms, and bradycardia with heart rate dropping to 57. It is uncertain if patient had bradycardia at the time of his original event at home. Recommended to follow-up with primary care physician within 1 week of discharge. Physical Exam Narrative: General: No acute distress, AO x3 HEENT: PERRLA, pupils bilaterally equal and reactive, pallors not present Chest: Normal vesicular breath sounds, no added sounds, equal good air entry bilaterally CVS: S1-S2 regular, no murmurs, no tachycardia, no gallops, no rubs Abdomen: Soft, nontender, no organomegaly, bowel sounds present Neuro: No focal deficits, no facial deformity, AO x3, power 5/5 in all limbs Urinary Catheter Management: Ahn: Cath Placed During This Visit: yes Reason for Continuing Indwelling Catheter: Accurate Measurement of Urinary Output in Critically Ill Patients Urinary Catheter Date of Insertion: 01/03/25 Urinary Catheter Time of Insertion: 19:50 Discharge Data Studies Completed and Pending Completed Studies During Hospitalization Category Date Time Status CXRP [XR chest 1V portable [id number]] Routine Exams 01/05/25 11:37 Completed XR chest 1V portable [id number] Stat Exams 01/03/25 13:15 Completed Pending at discharge Category Date Time Status Blood Culture Stat Lab 01/05/25 13:17 Results Radiology Impressions Chest X-Ray 01/05/25 11:37 IMPRESSION: Bibasilar opacities as described. Laboratory Results WBC 14.51 10^3/uL (3.29-11.43) H 01/06/25 04:25 RBC 3.58 10^6/uL (3.85-5.65) L 01/06/25 04:25 Hgb 9.40 g/dL (11.27-16.99) L 01/06/25 04:25 Hct 30.5 % (37-53) L 01/06/25 04:25 MCV 85.2 fl (82-101) 01/06/25 04:25 MCH 26.3 pg (27-33) L 01/06/25 04:25 MCHC 30.8 g/dL (30-55) 01/06/25 04:25 RDW 18.2 % (12.1-15.1) H 01/06/25 04:25 Plt Count 589 10^3/cmm (157-399) H 01/06/25 04:25 MPV 9.2 fL (7.4-10.4) 01/06/25 04:25 Neut % (Auto) 88.0 % 01/06/25 04:25 Lymph % (Auto) 7.8 % 01/06/25 04:25 [place] % (Auto) 3.6 % 01/06/25 04:25 Eos % (Auto) 0.1 % 01/06/25 04:25 Baso % (Auto) 0.1 % 01/06/25 04:25 Neut # (Auto) 12.77 10^3/uL (1.8-7.7) H 01/06/25 04:25 Lymph # (Auto) 1.1 10^3/uL (0.8-4.8) 01/06/25 04:25 [place] # (Auto) 0.5 10^3/uL (0.2-0.9) 01/06/25 04:25 Eos # (Auto) 0.0 10^3/uL (0.0-0.8) 01/06/25 04:25 Baso # (Auto) 0.0 10^3/uL (0.0-0.1) 01/06/25 04:25 Nucleated RBC % (auto) 0 % 01/06/25 04:25 Nucleated RBCs # 0.0 /100WBC 01/06/25 04:25 Sodium 137 mmol/L (136-145) 01/06/25 04:25 Potassium 3.5 mmol/L (3.5-5.1) 01/06/25 04:25 Chloride 104 mmol/L (98-107) 01/06/25 04:25 Carbon Dioxide 23 mmol/L (22-29) 01/06/25 04:25 Anion Gap 13.5 (5-19) 01/06/25 04:25 BUN 14 mg/dL (8-23) 01/06/25 04:25 Creatinine 0.9 mg/dL (0.7-1.2) 01/06/25 04:25 GFR Calculation Not Reportable 01/06/25 04:25 Glucose 122 mg/dL (65-115) H 01/06/25 04:25 Calculated Osmolality 286 mOsm/kg (285-295) 01/06/25 04:25 Lactic Acid 2.2 mmol/L (0.5-2.2) 01/03/25 21:42 Lactic Acid (Sepsis) 1.3 mmol/L (0.5-2.2) 01/04/25 01:15 Calcium 8.2 mg/dL (8.5-10.5) L 01/06/25 04:25 Magnesium 2.0 mg/dL (1.7-2.3) 01/05/25 05:14 Total Bilirubin 0.3 mg/dL (0.15-1.2) 01/06/25 04:25 AST 13 U/L (0-40) 01/06/25 04:25 ALT 7 U/L (0-41) 01/06/25 04:25 Alkaline Phosphatase 135 U/L (40-130) H 01/06/25 04:25 Troponin T Baseline 53 ng/L (0-15) H 01/03/25 13:20 Troponin T 120 Minute 47.94 ng/L (0-15) H 01/03/25 14:56 Delta Troponin T -5.06 ABS# (0-10) L 01/03/25 14:56 Troponin T Hi Sens 6Hr 37.03 ng/L (0-15) H 01/03/25 19:20 Troponin T Hi Sens 6Hr Delta -15.97 ng/L (0-12) L 01/03/25 19:20 C-Reactive Protein 18.2 mg/L (0.0-4.9) H 01/03/25 12:58 NT-Pro-B Natriuret Pep 392 pg/mL (0-450) 01/03/25 12:58 Total Protein 5.7 g/dL (6.6-8.7) L 01/06/25 04:25 Albumin 3.0 g/dL (3.5-5.2) L 01/06/25 04:25 Globulin 2.7 g/dL (1.3-4.6) 01/06/25 04:25 Procalcitonin 0.08 ng/mL (0-0.5) 01/05/25 05:14 Random Cortisol 10.61 ug/dL (2.47-19.5) 01/03/25 12:58 Urine Color Yellow (Yellow) 01/03/25 20:00 Urine Appearance Clear (CLEAR) 01/03/25 20:00 Urine pH 7.0 (5-7) 01/03/25 20:00 Ur Specific [place] 1.007 (1.005-1.030) 01/03/25 20:00 Urine Protein Negative (Negative) 01/03/25 20:00 Urine Glucose (UA) Negative (Normal) 01/03/25 20:00 Urine Ketones Negative (Negative) 01/03/25 20:00 Urine Blood Negative (Negative) 01/03/25 20:00 Urine Nitrate Negative (Negative) 01/03/25 20:00 Urine Bilirubin Negative (Negative) 01/03/25 20:00 Urine Urobilinogen 0.2 mg/dL (Negative) 01/03/25 20:00 Ur Leukocyte Esterase Negative (Negative) 01/03/25 20:00 Urine RBC 0-2 /hpf (0-2) 01/03/25 20:00 Urine WBC 0-5 /hpf (0-5) 01/03/25 20:00 Ur Squamous Epith Cells 0-5 /hpf (0-5) 01/03/25 20:00 Amorphous Sediment Not Reportable 01/03/25 20:00 Urine Bacteria None seen /hpf (NONE) 01/03/25 20:00 Hyaline Casts 9.91 /lpf 01/03/25 20:00 Coronavirus 229E (PCR) Not detected (NOT DETECT) 01/05/25 11:57 SARS-CoV-2 (PCR) Not detected (NOT DETECT) 01/05/25 11:57 Vitals Last Vital Signs Temp 97.9 F 01/06/25 12:49 Pulse 70 01/06/25 12:49 Resp 16 01/06/25 12:49 BP 128/52 01/06/25 12:49 Pulse Ox 95 01/06/25 12:49 O2 Del Method Room Air 01/06/25 12:00 O2 Flow Rate 2 01/05/25 07:44 Discharge Plan Discharge Patient Disposition: Home Condition: Stable Prescriptions: New prednisone 20 mg Tablet 20 mg PO DAILY 5 Days Qty: 5 0RF midodrine 5 mg Tablet 10 mg PO Q6H 30 Days Qty: 240 0RF pantoprazole 40 mg Tablet,Delayed Release (Dr/Ec) 40 mg PO DAILY 30 Days Qty: 30 0RF amoxicillin-pot clavulanate 875-125 mg tablet 1 tab PO BID 5 Days Qty: 10 0RF Continued (DME) [id number] orthopedic shoes See Rx Instructions .Route .MEDSUPPLY Qty: 1 0RF Rx Instructions: As directed to the shoe rene potassium chloride 20 mEq tablet extended release See Rx Instructions .ROUTE .COMPLEX Qty: 180 2RF Dose Instruction: TAKE 1 TABLET BY MOUTH TWICE DAILY; HOLD IF YOU DO NOT TAKE LASIX Rx Instructions: TAKE 1 TABLET BY MOUTH TWICE DAILY; HOLD IF YOU DO NOT TAKE LASIX acetaminophen [Tylenol] 325 mg Tablet 650 mg PO Q6H PRN (Reason: Pain/fever) tamsulosin 0.4 mg Capsule 0.4 mg PO QPM Qty: 30 0RF atorvastatin 80 mg tablet 40 mg PO QPM albuterol sulfate 90 mcg/actuation HFA aerosol inhaler 2 inh INHALATION Q6H PRN (Reason: shortness of breath or wheezing) Qty: 8 0RF albuterol sulfate 2.5 mg /3 mL (0.083 %) solution for nebulization 2.5 mg inhalation Q6H PRN (Reason: Shortness Of Breath Or Wheezing) polymyxin B sulf-trimethoprim 10,000 unit- 1 mg/mL drops 1 drp ophthalmic (eye) QID montelukast 10 mg Tablet 10 mg PO BEDTIME aspirin 81 mg capsule 81 mg PO DAILY Qty: 90 0RF Changed furosemide 40 mg tablet 20 mg PO DAILY PRN (Reason: prn) 30 Days Qty: 0 0RF Held amiodarone [Pacerone] 200 mg Tablet 200 mg PO DAILY Qty: 30 0RF Hold Instructions: Resume on 01/21/25. hold until cardiology follow up Discharge Order = DC NOW: Discharge Order (Routine); Ordered 01/06/25 Ordered By: Krystal Castaneda Referrals: Madison Park APRN [Primary Care Provider, Family Practice] - 4-7 days Sofia Daniel FNP [Nurse Practitioner, Cardiology] - 7-10 days Referral Note: hospital discharge f/up, amiodarone dose changes, prolonged qtc interval Patient Instructions: Prednisone (By mouth), Amoxicillin/Clavulanate Potassium (By mouth), Midodrine (By mouth), Pantoprazole (By mouth), Hypothyroidism (DC), Aspiration Pneumonia (DC), Hypotension (DC), Opioid Safety, Patient Portal & Brandy Instructions Discharge Attestations Time Spent in Discharge Care*: greater than 30 min Status at Discharge: Cognitive status at discharge: cognitively intact , Behavioral status at discharge: cooperative , Quality Metrics Clinical Quality Measures [ No reported AMI, CVA or VTE this stay] Coding Level of Care Code Acute Code for Chg Fwd Diagnoses Hypotension I95.9 Hypokalemia E87.6 Prolonged QT interval R94.31 Aspiration pneumonia J69.0
== END 2025-01-06 13:05 | disposition home health service (06) | DRG 178 ==
LOC: ER 14:38 → ICU 14:58
PROVIDERS: Family Medicine; Admitting Provider Student in an Organized Health Care Education/Training Program; Emergency Provider Family Medicine; PCP Nurse Practitioner Family; Visit Provider Student in an Organized Health Care Education/Training Program
DX: J69.0 Pneumonitis due to inhalation of food and vomit (principal); I42.9 Cardiomyopathy, unspecified; I50.22 Chronic systolic (congestive) heart failure; J98.11 Atelectasis; I95.1 Orthostatic hypotension; E87.6 Hypokalemia; R94.31 Abnormal electrocardiogram [ECG] [EKG]; I25.10 Atherosclerotic heart disease of native coronary artery without angina pectoris; I48.0 Paroxysmal atrial fibrillation; I11.0 Hypertensive heart disease with heart failure; I35.0 Nonrheumatic aortic (valve) stenosis; E86.0 Dehydration; R13.10 Dysphagia, unspecified; N40.1 Benign prostatic hyperplasia with lower urinary tract symptoms; R33.8 Other retention of urine; K21.9 Gastro-esophageal reflux disease without esophagitis; I73.9 Peripheral vascular disease, unspecified; F17.220 Nicotine dependence, chewing tobacco, uncomplicated; F10.10 Alcohol abuse, uncomplicated; Z79.82 Long term (current) use of aspirin; Z95.5 Presence of coronary angioplasty implant and graft; Z89.422 Acquired absence of other left toe(s); Z85.21 Personal history of malignant neoplasm of larynx; Z98.1 Arthrodesis status; Z85.828 Personal history of other malignant neoplasm of skin
CPT/HCPCS: 36415; 51702; 71045; 80048; 80053; 81001; 82533; 83605; 83735; 83880; 84145; 84484; 85025; 86140; 87040; 87635; 92610; 93005; 99285; G0378; J1200; J2543; J2919; J3475; J7030; J7512; J9999; P9046

== ENCOUNTER → 2025-01-18 09:54 | Outpatient (BNVA) | payer OTHER, SELFPAY | PROVIDERS: PCP Family Medicine Geriatric Medicine; Visit Provider Nurse Practitioner | DX: M70.61 Trochanteric bursitis, right hip (principal); Z71.89 Other specified counseling | CPT/HCPCS: 20610; J1100; J2795; J3301; J9999 ==

== ENCOUNTER → 2025-02-06 12:57 | Outpatient (BNVA) | payer OTHER, SELFPAY | PROVIDERS: PCP Family Medicine Geriatric Medicine; Visit Provider Internal Medicine Cardiovascular Disease | DX: I11.0 Hypertensive heart disease with heart failure (principal); I50.22 Chronic systolic (congestive) heart failure; I48.0 Paroxysmal atrial fibrillation; Z79.82 Long term (current) use of aspirin; I25.10 Atherosclerotic heart disease of native coronary artery without angina pectoris; I95.9 Hypotension, unspecified; Z95.5 Presence of coronary angioplasty implant and graft; Z87.891 Personal history of nicotine dependence | CPT/HCPCS: 99214 ==

== ENCOUNTER → 2025-02-07 08:48 | Outpatient (BNVA) | payer OTHER, SELFPAY | PROVIDERS: PCP Family Medicine Geriatric Medicine; Visit Provider Orthopaedic Surgery | DX: M54.9 Dorsalgia, unspecified (principal); M48.061 Spinal stenosis, lumbar region without neurogenic claudication; Z98.890 Other specified postprocedural states | CPT/HCPCS: 72100; 99213 ==

== ENCOUNTER 2025-02-25 11:09 | Emergency (ER) | payer OTHER, SELFPAY ==
--- OUTSIDE RECORDS SUMMARY | 2024-02-13 06:00 | XMS_ITS ---
Author Organization [facility], [employer] Address [address] [place] [address] Care Team Providers Care Biochemical Engineer Name Role Phone [facility] Primary Care Provider Lucina claudia KERN ED Unavailable [phone] [place], [place] Unavailable Unavailable DAVIN HOWARD Unavailable [phone] REASON FOR VISIT 6 wks w/ ua/pvr/psa Encounters Encounter Location Date Provider Diagnosis [facility], [employer] [address] [place] [address] 02/13/2024 DAVIN HOWARD Plan Of Treatment No Information Progress Notes * Reginald PELAEZ MDOB:[birth year] (84 yo M)Acc No.[id number]:02/13/2024 Progress Notes Patient: Mayo BRANReignald HAMMER Provider: PIERO Carbone :1940 A ge:83 Y S ex:Male Date:02/13/2024 Address:[address] [place], [place] [phone] Pcp:[facility] Subjective: * Chief Complaints: * 1 . 6 wks w/ ua/pvr/psa. * Medical History: Objective: * Vitals: Assessment: Plan: * Treatment: * Billing Information: * Visit Code: * Procedure Codes: * Electronic signature of DAVIN HOWARD APRN on 02/25/2025 at 11:27 AM CDT Sign off status: Pending * Provider: PIERO Carbone Date: 0 02/13/2024 Generated for Nelia reardon/Tiffanie/Quinitting on: 0 02/25/2025 11:27 AM CDT
[2025-02-25 11:09] VITALS: BP 115/67; PULSE 72; RESP 16; TEMP 36.6; O2SAT 90; BMI 24.3
--- NOTE | 2025-02-25 11:15 | ECG_ITS ---
[employer] Test Date: 2025-02-25 Pat Name: Reginald Pelaez Department: Room: Gender: Male Student Services Counselor: : 1940 Requested By: Lucila Fine Order Number: [id number] Marcella MD: Rober Marx M.D. Measurements Intervals [place] Rate: 74 P: 145 CA: 254 QRS: 5 QRSD: 122 T: 21 QT: 456 QTc: 507 Interpretive Statements POSSIBLE SINUS RHYTHM PROBABLE LATERAL MYOCARDIAL INFARCTION , PROBABLY OLD [35 ms Q WAVE IN I/aVL/V5/V6] Compared to ECG 01/05/2025 09:35:37 Myocardial infarct finding now present First degree AV block no longer present Intraventricular conduction delay no longer present Electronically Signed On 02-28-2025 08:50:20 CDT by Rober Marx M.D. [email or web address]
--- NOTE | 2025-02-25 11:15 | XR_ITS ---
WS: [id number] XR chest 1V portable [id number] REASON FOR EXAM: Weakness FINDINGS: The chest is unchanged compared to 01/05/2025. Moderate tortuosity and ectasia of the thoracic aorta with calcified aortic arch. Mild cardiomegaly. Minimal central venous congestion. Calcified granulomatous disease in both hemithoraces. No acute pulmonary parenchymal or pleural abnormality is identified. Moderate degenerative spondylosis XR/XR chest 1V portable [id number] IMPRESSION: Stable chest without acute abnormality.
--- NOTE | 2025-02-25 11:21 | W.ED.WEAKNES ---
HPI - Weakness General: Chief complaint: Weakness Stated complaint: new afib, weakness, nausea, near syncope History of Present Illness: 84-year-old male with a history of aortic stenosis, cardiomyopathy and congestive heart failure, paroxysmal atrial fibrillation, coronary artery disease, BPH, GERD, COPD, chronic hyponatremia, peripheral arterial disease and hypertension who presents emergency room by ambulance with generalized weakness. He is not a very good historian but he states that mobile home technician was there and felt like something was wrong so she called the ambulance. EMS reports that he became almost unresponsive as they stood him up to put him in the gurney. Here he is alert and oriented. They state he became nauseous when they stood him up. He says he has been lightheaded and dizzy. No chest pain. No known fevers. No cough. No abdominal pain. No focal motor deficits. He does have a wound on his leg he says from his wheelchair when he went to a doctor's appointment recently. This is dressed at this time. Related Data Home Medications ?Medication ?Instructions ?Recorded ?Confirmed albuterol sulfate 2.5 mg/3 mL 2.5 mg inhalation Q6H PRN 11/24/24 02/25/25 (0.083 %) solution for nebulization Shortness Of Breath Or Wheezing midodrine 5 mg tablet 5 mg PO TID 02/06/25 02/25/25 pantoprazole 40 mg tablet,delayed 40 mg PO DAILY 02/06/25 02/25/25 release (Protonix) atorvastatin 80 mg tablet 40 mg PO QAM 02/25/25 02/25/25 cephalexin 500 mg capsule 500 mg PO TID 02/25/25 02/25/25 Previous Rx's ?Medication ?Instructions ?Recorded tamsulosin 0.4 mg capsule 0.4 mg PO QPM #30 caps 09/02/22 L3221 orthopedic shoes #1 ea 04/10/24 furosemide 40 mg tablet 20 mg (1/2 x 40 mg) PO DAILY PRN 01/06/25 prn 30 days #0 tabs potassium chloride 40 mEq/15 mL 40 meq (15 mL) PO DAILY 7 days 02/25/25 oral liquid #105 mL Allergies Allergy/AdvReac Type Severity Reaction Status Date / Time No Known Allergies Allergy Verified 02/07/25 07:50 Review of Systems Narrative: Constitutional symptoms: Negative except as documented in HPI. Skin symptoms: Negative except as documented in HPI. Eye symptoms: Negative except as documented in HPI. ENMT symptoms: Negative except as documented in HPI. Respiratory symptoms: Negative except as documented in HPI. Cardiovascular symptoms: Negative except as documented in HPI. Gastrointestinal symptoms: Negative except as documented in HPI. Genitourinary symptoms: Negative except as documented in HPI. Musculoskeletal symptoms: Negative except as documented in HPI. Neurologic symptoms: Negative except as documented in HPI. Psychiatric symptoms: Negative except as documented in HPI. Endocrine symptoms: Negative except as documented in HPI. PFSH ED PFSH: Medical History (Updated 02/25/25 @ 13:04 by Lucila Dutton MD) Moderate aortic stenosis Compression fracture Greater trochanteric bursitis of right hip Paroxysmal atrial fibrillation Cardiomyopathy Chronic systolic CHF (congestive heart failure) Systolic and diastolic with last known EF 45% in 2023 CAD (coronary artery disease) BPH loc w urin obs/LUTS Chronic decreased force of stream without RUTIs gross hematuria (previously prior to catheterization placement) or retention. 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, initial treatment with imiquimod, follows with Dr Gil Chronic alcohol use History of smoking Nicotine dependence, chewing tobacco, with other nicotine-induced disorders COPD (chronic obstructive pulmonary disease) Compression fx, lumbar spine 07/2022 L1, L3, L4 Lumbar disc disease with radiculopathy Amputated toe of left foot discharged from wound care 07/05/22, follows with Dr Brunner PAC (premature atrial contraction) Chronic hyponatremia Severe peripheral arterial disease Malignant neoplasm of glottis Claudication HTN (hypertension) History of nonmelanoma skin cancer Surgical History Status post kyphoplasty (08/06/22) L1, L3, L4 S/P right coronary artery (RCA) stent placement (08/30/22) S/P peripheral artery angioplasty with stent placement 12/2021 Left common/External Iliac Artery with 80% stenosis treated with AB ARMADA [id number]. 8.0 x 19 mm Omnilink stent was placed. Left Proximal Superficial Femoral Artery with 80-90 % stenosis treated with AB ARMADA 35 OTW [id number]. 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 Skin: Warm, dry. Head: Normocephalic, atraumatic. Neck: Supple, trachea midline. Eye: Extraocular movements are intact. Ears, nose, mouth and throat: mucosa moist. Cardiovascular: Regular, Normal peripheral perfusion. Respiratory: Lungs are clear to auscultation, respirations are non-labored, breath sounds are equal, Symmetrical chest wall expansion. Gastrointestinal: Soft, Nontender, Non distended Musculoskeletal: Normal ROM, no deformity. Neurological: Alert and oriented, No focal neurological deficit observed. Psychiatric: Cooperative, appropriate mood & affect. Course Vital Signs: Vital signs: Vital Signs Temperature 97.9 F 02/25/25 11:09 Pulse Rate 75 02/25/25 13:00 Respiratory Rate 16 02/25/25 13:00 Blood Pressure 120/56 02/25/25 13:00 Pulse Oximetry 98 02/25/25 13:00 Oxygen Delivery Me thod Room Air 02/25/25 13:00 MDM - Weakness Medical Decision Making Medical decision making: Differential diagnosis for patient presenting with generalized weakness including but not limited to and based on the above HPI, review of systems and physical exam: Sepsis. Dehydration. Renal failure. Electrolyte abnormalities. Anemia. Congestive heart failure. Hypotension. Coronary syndrome. Hepatitis. Cirrhosis. Infections such as pneumonia, urinary tract infection, Tick bourne illness, Cellulitis, Viral infections including influenza and Covid-19. Workup: labwork and lab/exam driven imaging ordered to evaluate, rule in and rule out above pathologies. EKG: Time 1112 rate 74. Normal sinus rhythm, No ST-T changes, occasional PVCs, first degree AV Block, EP Interpretation. This was reviewed and interpreted by myself the ER physician at 1115 Chest x-ray: No acute process. No infiltrate. No pneumothorax. This was reviewed and interpreted by myself the emergency room physician. I also reviewed the radiology report. Lab Review: Laboratory results were reviewed and interpreted by myself the emergency room physician. Mild leukocytosis. Stable anemia. Mild hyponatremia which is chronic. Potassium is a little bit low at 2.8. BUN and creatinine slightly above his baseline. Blood alcohol level is 70 here today. He says he has not had anything to drink since last night. I discussed that perhaps drinking this heavy may be what is causing him to be dehydrated. Lactic acidosis is slightly elevated but this is quite common in the alcoholics. No signs of infection here today. Urinalysis negative for infection. Chest x-ray negative for infection. No skin infections. Serial troponins are at his baseline and unchanged with no delta. I reviewed the patient's medical record. 84-year-old male with a history of aortic stenosis, cardiomyopathy and congestive heart failure, paroxysmal atrial fibrillation, coronary artery disease, BPH, GERD, COPD, chronic hyponatremia, peripheral arterial disease and hypertension. Reexamination: Patient remained stable. No increased work of breathing. No altered mental status. No focal motor deficits. Assessment and plan: Dehydration Alcohol abuse Hypokalemia Dizziness Weakness ?1 L normal saline bolus. 40 mill equivalents p.o. potassium. - Discharged home - Discussed plan with patient. Answered any questions. - Evaluation and treatment of this problem were appropriate in the emergency setting. Lab Data 02/25/25 10:49 02/25/25 10:49 Radiology Impressions Chest X-Ray 02/25/25 11:15 IMPRESSION: Stable chest without acute abnormality. Laboratory Results WBC 12.84 10^3/uL (3.29-11.43) H 02/25/25 10:49 RBC 3.55 10^6/uL (3.85-5.65) L 02/25/25 10:49 Hgb 9.80 g/dL (11.27-16.99) L 02/25/25 10:49 Hct 29.9 % (37-53) L 02/25/25 10:49 MCV 84.2 fl (82-101) 02/25/25 10:49 MCH 27.6 pg (27-33) 02/25/25 10:49 MCHC 32.8 g/dL (30-55) 02/25/25 10:49 RDW 20.9 % (12.1-15.1) H 02/25/25 10:49 Plt Count 447 10^3/cmm (157-399) H 02/25/25 10:49 MPV 8.9 fL (7.4-10.4) 02/25/25 10:49 Neut % (Auto) 71.6 % 02/25/25 10:49 Lymph % (Auto) 13.8 % 02/25/25 10:49 [place] % (Auto) 13.2 % 02/25/25 10:49 Eos % (Auto) 0.2 % 02/25/25 10:49 Baso % (Auto) 0.2 % 02/25/25 10:49 Neut # (Auto) 9.19 10^3/uL (1.8-7.7) H 02/25/25 10:49 Lymph # (Auto) 1.8 10^3/uL (0.8-4.8) 02/25/25 10:49 [place] # (Auto) 1.7 10^3/uL (0.2-0.9) H 02/25/25 10:49 Eos # (Auto) 0.0 10^3/uL (0.0-0.8) 02/25/25 10:49 Baso # (Auto) 0.0 10^3/uL (0.0-0.1) 02/25/25 10:49 Nucleated RBC % (auto) 0.4 % 02/25/25 10:49 Nucleated RBCs # 0.1 /100WBC 02/25/25 10:49 Sodium 130 mmol/L (136-145) L 02/25/25 10:49 Potassium 2.8 mmol/L (3.5-5.1) L* 02/25/25 10:49 Chloride 84 mmol/L (98-107) L 02/25/25 10:49 Carbon Dioxide 26 mmol/L (22-29) 02/25/25 10:49 Anion Gap 22.8 (5-19) H 02/25/25 10:49 BUN 18 mg/dL (8-23) 02/25/25 10:49 Creatinine 1.2 mg/dL (0.7-1.2) 02/25/25 10:49 GFR Calculation Not Reportable 02/25/25 10:49 Glucose 92 mg/dL (65-115) 02/25/25 10:49 Calculated Osmolality 272 mOsm/kg (285-295) L 02/25/25 10:49 Lactic Acid 3.9 mmol/L (0.5-2.2) H 02/25/25 10:49 Calcium 9.0 mg/dL (8.5-10.5) 02/25/25 10:49 Total Bilirubin 1.0 mg/dL (0.15-1.2) 02/25/25 10:49 AST 38 U/L (0-40) 02/25/25 10:49 ALT 21 U/L (0-41) 02/25/25 10:49 Alkaline Phosphatase 226 U/L (40-130) H 02/25/25 10:49 Troponin T Baseline 39 ng/L (0-15) H 02/25/25 10:49 Troponin T 120 Minute 33.58 ng/L (0-15) H 02/25/25 13:00 Delta Troponin T -5.42 ABS# (0-10) L 02/25/25 13:00 C-Reactive Protein 25.9 mg/L (0.0-4.9) H 02/25/25 10:49 NT-Pro-B Natriuret Pep 664 pg/mL (0-450) H 02/25/25 10:49 Total Protein 7.0 g/dL (6.6-8.7) 02/25/25 10:49 Albumin 3.8 g/dL (3.5-5.2) 02/25/25 10:49 Globulin 3.2 g/dL (1.3-4.6) 02/25/25 10:49 Procalcitonin 0.19 ng/mL (0-0.5) 02/25/25 10:49 Urine Color Yellow (Yellow) 02/25/25 12:46 Urine Appearance Clear (CLEAR) 02/25/25 12:46 Urine pH 6.5 (5-7) 02/25/25 12:46 Ur Specific [place] 1.007 (1.005-1.030) 02/25/25 12:46 Urine Protein Negative (Negative) 02/25/25 12:46 Urine Glucose (UA) Negative (Normal) 02/25/25 12:46 Urine Ketones Negative (Negative) 02/25/25 12:46 Urine Blood Negative (Negative) 02/25/25 12:46 Urine Nitrate Negative (Negative) 02/25/25 12:46 Urine Bilirubin Negative (Negative) 02/25/25 12:46 Urine Urobilinogen 0.2 mg/dL (Negative) 02/25/25 12:46 Ur Leukocyte Esterase Negative (Negative) 02/25/25 12:46 Urine RBC None /hpf (0-2) 02/25/25 12:46 Urine WBC None /hpf (0-5) 02/25/25 12:46 Ur Squamous Epith Cells Rare /hpf (0-5) 02/25/25 12:46 Ur Transition Epith Cell Rare /hpf 02/25/25 12:46 Amorphous Sediment Not Reportable 02/25/25 12:46 Urine Bacteria None /hpf (NONE) 02/25/25 12:46 Hyaline Casts 5-10 /lpf H 02/25/25 12:46 Ethyl Alcohol 58 mg/dL (0-10) H 02/25/25 10:49 Influenza A (PCR) Negative (Negative) 02/25/25 11:31 Influenza Type B (PCR) Negative (Negative) 02/25/25 11:31 RSV (PCR) Negative (Negative) 02/25/25 11:31 SARS-CoV-2 (PCR) Negative (Negative) 02/25/25 11:31 All radiology interpretation(s) finalized by discharge Discharge Plan Discharge Patient Disposition: Home Clinical Impression: Dehydration, Alcohol abuse, Dizziness, Weakness, Hypokalemia Condition: Stable Prescriptions: New potassium chloride 40 mEq/15 mL liquid 40 meq PO DAILY 7 Days Qty: 105 0RF No Action (DME) L3221 orthopedic shoes See Rx Instructions .Route .MEDSUPPLY Qty: 1 0RF Rx Instructions: As directed to the shoe rene midodrine 5 mg tablet 5 mg PO TID Rx Instructions: do not give last dose of day after 6PM or within 4 hrs of bedtime pantoprazole [Protonix] 40 mg tablet,delayed release (DR/EC) 40 mg PO DAILY tamsulosin 0.4 mg Capsule 0.4 mg PO QPM Qty: 30 0RF albuterol sulfate 2.5 mg /3 mL (0.083 %) solution for nebulization 2.5 mg inhalation Q6H PRN (Reason: Shortness Of Breath Or Wheezing) furosemide 40 mg tablet 20 mg PO DAILY PRN (Reason: prn) 30 Days Qty: 0 0RF atorvastatin 80 mg tablet 40 mg PO QAM cephalexin 500 mg capsule 500 mg PO TID Discharge Orders: Discharge ED (Routine); Ordered 02/25/25 Ordered By: Lucila Dutton Referrals: Gage De Jesus MD [Primary Care Provider, Family Practice] Discharge Diet: Usual diet Discharge Activity: Increase activity as tolerated Patient Instructions: Weakness (ED), Alcohol Dependence (ED), Opioid Safety, Pain Management, Patient Portal & Brandy Instructions Activity Restrictions/Additional Instructions: Thank you for choosing [facility] for your healthcare needs today. You have been screened and evaluated and felt safe for discharge. Health conditions do change or evolve sometimes and as such it is important that you follow up with your Primary Doctor to be re checked, 3-5 days is a general good time frame for follow up. You are always welcome to return to the ED for re assessment if your symptoms are worsening or you have new concerns Print Language: Estonian Coding Level of Care Code ED Wad Impregnator for Jorge Betancourt
--- OUTSIDE RECORDS SUMMARY | 2025-02-25 11:27 | XMS_ITS | Encounter Summary ---
Author Organization [employer] Address [address] [place] [address] Care Team Providers Care Soil Biology Teacher Name Role Phone Unavailable Primary Care Provider Unavailabl e Encounter Details Date Type Department Care Team (Late st Contact Info) Description 02/19/2025 External Device Data STL ABSTRACTION Provider, Abstract [...] on file Legal Sex Male 5:21 AM FIRST BEATER Gender Identity Not on file Sexual Orientation Not on file documented as of this encounter Plan of Treatment Not on file documented as of this encounter Visit Diagnoses Not on filedocumented in this encounter
--- OUTSIDE RECORDS SUMMARY | 2025-02-25 11:27 | XMS_ITS | Clinical Summary ---
Author Organization [facility] Address [address] [place] [address] Care Team Providers Care Research Consultant Name Role Phone Unavailable Primary Care [...] 3 Active fluticasone propionate (FLONASE) 50 mcg/spray [place], Suspension nasal inhaler Administer in each nostril. [...] Encounters Date Type Department Care Team Description 02/19/2025 External Device Data STL ABSTRACTION Provider, Abstract 01/15/2025 External Device Data STL ABSTRACTION Provider, Abstract 01/01/2025 External Device Data STL ABSTRACTION Provider, [...] on file Legal Sex Male 5:21 AM COOKER SULFATE Gender Identity Not on file Sexual Orientation [...] ) (1 - 1-dose 75+ series) 2017 INFLUENZA VACCINE (#1) 2024 , 02/26/2021, 02/22/2020, Additional history exists COVID-19 Vaccine (4 - 2024-2 6 season) 2025 03/16/2021, 08/27/2020, 07/30/2020 DTAP/TDAP/TD VACCINES (3 - T d or Tdap) 12/22/2031 12/21/2021, 05/12/2012 ZOSTER VACCINE Completed 12/12/2017, 05/0 05/2017, 12/31/2011 PNEUMOCOCCAL VACCINE 50+ YEARS Completed 0 12/21/2021, 03/20/2015, 03/20/2012, Additional history exists Medical Devices Implanted Type Area Store Facility Technician Device Identifier Shelf Expiration Date Model / Serial / Lot Oil Slc 8.5ml [id number] - [id number] Implanted:Qty: 1 on 08/28/2024 by Georgette Jiménez MD at [facility] Eye Left: Eye [employer] 05/29/2026 [id number] / / [id number] Description:[id number] Oil Slc 8.5ml [id number] - [id number] Implanted:Qty: 1 on 09/25/2024 by Georgette Jiménez MD at [facility] Eye Left: [employer] [id number] 05/29/2026 [id number] / / 121C0 Oil Slc 8.5ml [id number] - [id number]:[id number] Implanted:Qty: 1 on 09/25/2024 by Georgette Jiménez MD at [facility] Eye Left: Eye [employer] 05/29/2026 [id number] / [id number] / [id number] Insurance [address] [place] [address] RX [facility] Medicare Part D RX INFOCROSSING Medicaid * Guarantor: [employer] G (C) Account Type Relation to Patient Date of Phone Billing Address Corporate Other DEFAULT ADDRESS [address] [employer] Member Subscriber Plan / Payer (Ef fective 2024-Present) Name:Reginald Pelaez Relation to Subscriber:Self Name:Reginald Pelaez Payer ID:Not on file Group ID:Not on file Type:[place] Address: [place] [id number] * Guarantor: [employer]er (C) Account Type Relation to Patient Date of Phone Billing Address Corporate Other DEFAULT ADDRESS [address] [employer] Member Subscriber Plan / Payer (Ef fective 2024-Present) Name:Reginald Pelaez Relation to Subscriber:Self Name:Reginald Pelaez Payer ID:Not on file Group ID:Not on file Type:[place] Address: [place] [id number] [place] [address] Advance Directives For more information, please contact: [phone] * Full Code (Latest Code Status on File) Date Activated Date Inactivated Comments 09/25/2024 1:25 PM 09/26/2024 10:17 AM * Full Code Date Activated Date Inactivated Comments 08/28/2024 11:52 AM 08/28/2024 7:35 PM
--- OUTSIDE RECORDS SUMMARY | 2025-02-25 11:27 | XMS_ITS | Patient Health Record ---
Author Organization [facility] Address [address] [place] [address] Care Team Providers Care Refrigerating Engineer Name Role Phone [facility] , [place] Primary Care Provider Un available Eric Frye Unavailable [phone] Reason For Referral Reason back pain compressio n fracture Diagnosis 1 Back pain (M54.9) Diagnosis 2 Wedge compression fr acture of third thoracic vertebra, initial encounter for closed fracture (S22.030A) Referring Provider First Name [place] Referring Provider Last Name [facility] Referring Provider Speciality Geriatric Medicine Referred Organization [facility] [place] Referred Provider Eric Frye Referred Address [address] [facility] [address],[place], [place],[address], Referred Provider Specialty Neurosurgery Referral Priority Routine Problems Problem Type SNOMED Code ICD Code Onset Dates Problem Status W/U Status Risk Notes Problem Gastroesophageal reflux disease (957255096) Acid reflux disease (530.81) Active confirmed [id number] 911- Problem Generalized osteoarthritis (239994855) 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) Active confirmed [id number] 911- Problem Tobacco user (166571432) Cigarette smoking (305.1) 008 Problem resolved confirmed [id number] 911- Problem General examination of patient (034826649) Annual exam (V70.0) Problem resolved confirmed [id number] 911- Problem Thyroid function tests abnormal (424985018) Abnormal thyroid findings (794.5) 008 Problem resolved confirmed [id number] 911- Plan Of Treatment No Information Insurance Providers Payer Name Payer Address Payer Phone Subscriber Number Group Number Insured Name Patient Relationship to Insured Coverage Start Date Coverage End Date [employer] [address] [place] [address] [id number] Reginald Pelaez Self - patient is the insured Medical (General) History Surgical History Surgery Date(Month/Year) NONE
--- OUTSIDE RECORDS SUMMARY | 2025-02-25 11:28 | XMS_ITS | Patient Health Record ---
Author Organization [facility] Address [address] [place] [address] Care Team Providers Care Surveying Technician Name Role Phone [facility] Primary Care Provider ED Ramesh Unavailable [phone] SdKevin Unavailable Unavailable Allergies No Known Allergies Reason For Referral [...] the evening; Duration: 30 days Active Tiotropium [place] Monohydrate 18 MCG 1 capsule by inhaling [...] Status Risk Notes Problem Benign prostatic hyperplasia (649893808) BPH (benign prostatic hyperplasia) (N40.0) Active confirmed Plan Of Treatment Pending Test Test Name Order Date PSA, TOTAL (5363) 11/01/2023 Bladder Scan 11/01/2023 Insurance Providers Payer Name Payer Address Payer Phone Subscriber Number Group Number Insured Name Patient Relationship to Insured Coverage Start Date Coverage End Date [employer] [address] [place] [id number] Reginald Pelaez Self - patient is the insured Medical (General) History Medical History History ICD Code alcohol abuse actinic keratosis gallstones vocal cord cancer COPD HTN hyperlipidemia PVD a fib cirrhosis vitamin d deficiency Surgical History Surgery Date(Month/Year) vocal cord cancer back surgery 2023 Hospitalization History Reason Date(Month/Year) surgery
[2025-02-25 11:42] LABS: Hematocrit 29.9 % (37-53); Hemoglobin 9.80 g/dL (11.27-16.99); Mean Corpuscular HGB Conc 32.8 g/dL (30-55); Mean Corpuscular Hemoglobin 27.6 pg (27-33); Mean Corpuscular Volume 84.2 fl (82-101); Nucleated Red Blood Cells % 0.4 %; Platelet Count 447 10^3/cmm (157-399); Red Blood Count 3.55 10^6/uL (3.85-5.65); White Blood Count 12.84 10^3/uL (3.29-11.43)
[2025-02-25 11:59] LABS: Lactic Sepsis W/Reflex 3.9 mmol/L (0.5-2.2)
[2025-02-25 12:01] LABS: Troponin(5th) Baseline 39 ng/L (0-15)
[2025-02-25 12:16] LABS: NT Pro B Type Natriuretic Pept 664 pg/mL (0-450); Procalcitonin 0.19 ng/mL (0-0.5)
[2025-02-25 12:19] LABS: Respiratory Syncytial Virus Ce NEGATIVE (Negative); SARS-CoV-2 PCR NEGATIVE (Negative)
[2025-02-25 12:29] LABS: Alanine Aminotransferase 21 U/L (0-41); Albumin Level 3.8 g/dL (3.5-5.2); Alcohol Level 58 mg/dL (0-10); Alkaline Phosphatase 226 U/L (40-130); Anion Gap 22.8 (5-19); Aspartate Amino Transferase 38 U/L (0-40); Blood Urea Nitrogen 18 mg/dL (8-23); Calcium 9.0 mg/dL (8.5-10.5); Carbon Dioxide 26 mmol/L (22-29); Chloride 84 mmol/L (98-107); Creatinine Clr Calc Pharmacy 48.5731; Globulin 3.2 g/dL (1.3-4.6); Glucose 92 mg/dL (65-115); Osmolality Calculated 272 mOsm/kg (285-295); Sodium 130 mmol/L (136-145); Total Protein 7.0 g/dL (6.6-8.7)
[2025-02-25 12:30] LABS: Potassium 2.8 mmol/L (3.5-5.1)
[2025-02-25 12:49] VITALS: BP 109/64; PULSE 79; RESP 16; O2SAT 93
[2025-02-25 12:59] LABS: Glucose Urine UA Negative (Normal); Nitrate Urine Negative (Negative); Specific Gravity, Urine 1.007 (1.005-1.030)
[2025-02-25 13:00] VITALS: BP 120/56; PULSE 75; RESP 16; O2SAT 98
--- NOTE | 2025-02-25 13:15 | ECG_ITS ---
[facility] Test Date: 2025-02-25 Pat Name: Reginald Pelaez Department: Room: Gender: Male Department Head College Or University: : 1940 Requested By: Lucila Fine Order Number: [id number] Marcella MD: Antonio Apodaca M.D. Measurements Intervals [place] Rate: 76 P: 73 [place]: 210 QRS: -57 QRSD: 122 T: 14 QT: 451 QTc: 509 Interpretive Statements Possible normal sinus rhythm with Supraventricular ectopics LEFT AXIS DEVIATION [QRS AXIS < -30] MODERATE INTRAVENTRICULAR CONDUCTION DELAY [110+ ms QRS DURATION] PROLONGED QT INTERVAL Compared to ECG 02/25/2025 11:12:54 Left-axis deviation now present Intraventricular conduction delay now present Prolonged QT interval now present Myocardial infarct finding no longer present Electronically Signed On 02-28-2025 23:31:04 CDT by Antonio Apodaca M.D. [email or web address]
[2025-02-25] MEDS: potassium chloride oral liq 20 mEq/15 mL UDC 40 MEQ PO (13:22)
[2025-02-25 13:23] LABS: Reflex Lactate Order REFLEX LACTIC ORDERD
[2025-02-25 13:39] LABS: Troponin 5 2HR 33.58 ng/L (0-15)
[2025-02-25 13:41] LABS: Troponin 5 2HR Delta -5.42 ABS# (0-10)
[2025-02-25 14:04] VITALS: BP 126/66; PULSE 90; RESP 18; O2SAT 92
[2025-02-25 14:12] LABS: Lactic Acid level (Lactate) 2.4 mmol/L (0.5-2.2)
== END 2025-02-25 14:06 | disposition home or self-care (01) ==
PROVIDERS: Emergency Provider Emergency Medicine; PCP Family Medicine Geriatric Medicine
DX: E86.0 Dehydration (principal); F10.129 Alcohol abuse with intoxication, unspecified; Y90.2 Blood alcohol level of 40-59 mg/100 ml; R42 Dizziness and giddiness; R53.1 Weakness; E87.6 Hypokalemia; Z11.52 Encounter for screening for COVID-19; Z87.891 Personal history of nicotine dependence; Z85.828 Personal history of other malignant neoplasm of skin; I25.10 Atherosclerotic heart disease of native coronary artery without angina pectoris; J44.9 Chronic obstructive pulmonary disease, unspecified; I10 Essential (primary) hypertension
CPT/HCPCS: 36415; 71045; 80053; 80307; 81001; 83605; 83880; 84145; 84484; 85025; 86140; 87040; 87637; 93005; 99285; J7030; J9999

== ENCOUNTER 2025-02-27 08:56 | Outpatient (CLI) | payer OTHER, SELFPAY ==
--- NOTE | 2025-02-27 09:30 | MRR_ITS ---
PROCEDURE INFORMATION: Exam: MR Lumbar Spine Without Contrast Exam date and time: 02/27/2025 9:58 AM Age: 84 years old Clinical indication: Low back pain; Prior surgery; Surgery date: 6+ months; Surgery type: Cardiac stents, kyphoplasty, RT hip; Low back pin, RT hip pain. PT has HX of compression fx/ HX of throat cancer; Additional info: Lumbar stenosis TECHNIQUE: Imaging protocol: Magnetic resonance imaging of the lumbar spine without contrast. COMPARISON: MR lumbar spine wo con* [id number] 02/21/2024 3:04 PM FINDINGS: Bones/joints: Alignment is normal. Nonacute compression deformities of L1, L3, L4 with previous cement injection. Spinal cord: Conus terminates normally at L1. T12-L1: Bulging disc with underlying osteophyte. Bilateral facet hypertrophy. Moderate bilateral neural foraminal narrowing. L1-L2: Bulging disc with underlying osteophyte. Bilateral facet and ligamentum flavum hypertrophy. Mild stenosis. Moderate bilateral neural foraminal narrowing. L2-L3: Bulging disc with underlying osteophyte. Bilateral facet and ligamentum flavum hypertrophy. Severe stenosis. Moderate bilateral neural foraminal narrowing. L3-L4: Bulging disc with underlying osteophyte. Bilateral facet hypertrophy. Moderate stenosis. Moderate bilateral neural foraminal narrowing. L4-L5: Bulging disc with underlying osteophyte. Bilateral facet and ligamentum flavum hypertrophy. Severe stenosis. Severe bilateral neural foraminal narrowing. L5-S1: Bulging disc. Bilateral facet hypertrophy. Mild bilateral neural foraminal narrowing. Soft tissues: Unremarkable. MR/MR lumbar spine wo con* [id number] IMPRESSION: 1. Substantial diffuse degenerative changes as on the prior study. 2. Severe stenosis at L2-L3 and L4-L5. Moderate stenosis at L3-L4. Mild stenosis at L1-L2. 3. Severe neural foraminal narrowing bilaterally L4-L5.
== END 2025-02-27 08:57 | disposition home or self-care (01) ==
LOC: RAD 08:58
PROVIDERS: PCP Family Medicine Geriatric Medicine; Visit Provider Orthopaedic Surgery
DX: M48.061 Spinal stenosis, lumbar region without neurogenic claudication (principal); Z98.890 Other specified postprocedural states; M25.78 Osteophyte, vertebrae
CPT/HCPCS: 72148

== ENCOUNTER 2025-02-28 19:50 | Emergency (ER) | payer OTHER, SELFPAY ==
--- OUTSIDE RECORDS SUMMARY | 2024-02-13 06:00 | XMS_ITS ---
Author Organization [facility], [facility] Address [address] [place] [address] Care Team Providers Care Mooner Name Role Phone [facility] Primary Care Provider Lucina claudia KERN ED Unavailable [phone] Wi, [place] Unavailable Unavailable DAVIN HOWARD Unavailable [phone] REASON FOR VISIT 6 wks w/ ua/pvr/psa Encounters Encounter Location Date Provider Diagnosis [facility] [address] [place] [address] 02/13/2024 DAVIN HOWARD Plan Of Treatment No Information Progress Notes * Reginald PELAEZ MDOB:[birth year] (84 yo M)Acc No.[id number]:02/13/2024 Progress Notes Patient: Mayo BRANReginald HAMMER Provider: PIERO Carbone :1940 A ge:83 Y S ex:Male Date:02/13/2024 Address:[address] [place], [place] [phone] Pcp:[facility] Subjective: * Chief Complaints: * 1 . 6 wks w/ ua/pvr/psa. * Medical History: Objective: * Vitals: Assessment: Plan: * Treatment: * Billing Information: * Visit Code: * Procedure Codes: * Electronic signature of DAVIN HOWARD APRN on 02/28/2025 at 07:55 PM CDT Sign off status: Pending * Provider: PIERO Carbone Date: 0 02/13/2024 Generated for Nelia reardon/Tiffanie/Sonia on: 1 07:55 PM CDT
--- OUTSIDE RECORDS SUMMARY | 2025-02-28 19:55 | XMS_ITS | Data Portability ---
Author Organization [facility] Zev Saldana, [facility] Address [address] [facility] [address] [place] [address] Assessment No assessment recorded. Plan of Treatment Reminders Order Date Submit Date Provider Last Modified By Organization Details Last Modified Time Details Appointments None record ed. Lab None record ed. Referral None record ed. Procedures None record ed. Surgeries None record ed. Imaging None record ed. Medication Orders None record ed. Patient TargetsNo targets recorded. Patient Instructions Encounter Date Encounter Id Patient Instructions Last Modified By Organization Details Last Modified Time 11/29/2024 [id number] Records reviewed . Admitted with hypotension work up for adrenal insufficiency negative. Failed restarting Entresto. EF improved to 50-55%. Elected for no anticoagulation with risk of falls. Will check daily weights and labs Tuesday. [email or web address] Not available 11/29/2024 18:31:35 12/10/2024 [id number] Breathing improv ed, working hard with therapy. Mood good. [email or web address] Not available 12/10/2024 13:59:46 12/13/2024 [id number] Admitted with hypotension work up for adrenal insufficiency negative. Failed restarting Entresto. EF improved to 50-55%. Elected for no anticoagulation with risk of falls. Will check daily weights and labs Tuesday.Planning to d/c soon. Wishing to move to [facility]. weight down a few lbs. Breathing improved, but he will need [employer] portable oxygen system at 2lpm for 99 months. [email or web address] Not available 12/13/2024 12:15:48 Reason for Referral None Reported. Problems Name Problem SNOMED Code Status Onset Date Resolution Date Notes Provider Name and Address Organization Details Recorded Time Post-discharg e follow-up 370125236 [facility]:01 Asthenia 95873043 Active 2024 PAULA [facility] [facility] 5 18:30:02 Acute on chronic systolic heart failure 330511654 Active 2024 PAULA [place] [facility] 5 18:30:03 Low blood pressure 96549512 Active 2024 PAULA [place] [facility] 5 18:30:05 Hypothyroidis m 03430269 Active 2024 PAULA [place] [facility] 18:30:08 Coronary arteriosclero sis 42149435 Active 2024 PAULA [place] [facility] 5 18:30:10 Moderate aortic valve stenosis 604434663 Active 2024 PAULA [place] [facility] 18:30:11 Problem Notes None recorded. Medical Equipment None Reported. Medications Name Sig Start Date Stop Date Status Note LastModified by Organization Details LastModified Time cyclobenzapr ine 10 mg tablet TAKE ONE TABLET BY MOUTH THREE TIMES DAILY NEEDED FOR PAIN active Not Available Not Available No t Available furosemide 40 mg tablet TAKE 1 TABLET BY MOUTH TWICE DAILY active Not Available Not Available No t Available metolazone 2.5 mg tablet TAKE 1 TABLET BY MOUTH ONCE DAILY NEEDED active Not Available Not Available No t Available atorvastatin 80 mg tablet TAKE 1/2 (ONE-HALF) TABLET BY MOUTH IN THE MORNING active Not Available Not Available Not Available doxycycline hyclate 100 mg capsule TAKE 1 CAPSULE BY MOUTH TWICE DAILY FOR 7 DAYS active Not Available Not Available No t Available albuterol sulfate 2.5 mg/3 mL (0.083 %) solution for nebulization USE 1 VIAL IN NEBULIZER EVERY 6 HOURS NEEDED COUGH AND CONGESTION AND WHEEZING active Not Available Not Available No t Available amiodarone 200 mg tablet TAKE 1 TABLET BY MOUTH ONCE DAILY active Not Available Not Available No t Available benzonatate 200 mg capsule TAKE 1 CAPSULE BY MOUTH THREE TIMES DAILY NEEDED FOR COUGH active Not Available Not Available No t Available hydrocodone 5 mg-acetamino phen 325 mg tablet TAKE 1/2 TO 1 (ONE-HALF TO ONE) TABLET BY MOUTH EVERY 8 HOURS NEEDED FOR PAIN active Not Available Not Available No t Available prednisone 20 mg tablet TAKE 2 TABLETS BY MOUTH ONCE DAILY active Not Available Not Available No t Available clopidogrel 75 mg tablet TAKE 1 TABLET BY MOUTH ONCE DAILY active Not Available Not Available No t Available tramadol 50 mg tablet TAKE 1 TABLET BY MOUTH EVERY 6 TO 8 HOURS NEEDED active Not Available Not Available No t Available potassium chloride ER 20 mEq tablet,exten ded release(part /cryst) TAKE 1 TABLET BY MOUTH TWICE DAILY active Not Available Not Available No t Available magnesium oxide 400 mg (241.3 mg magnesium) tablet TAKE 1 TABLET BY MOUTH ONCE DAILY active Not Available Not Available No t Available tamsulosin 0.4 mg capsule TAKE 2 CAPSULES BY MOUTH ONCE DAILY IN THE EVENING active Not Available Not Available Not Available meclizine 25 mg tablet TAKE 1/2 (ONE-HALF) TABLET BY MOUTH THREE TIMES DAILY NEEDED FOR DIZZINESS active Not Available Not Available No t Available benzonatate 100 mg capsule TAKE 1 CAPSULE BY MOUTH EVERY 6 HOURS NEEDED FOR COUGH active Not Available Not Available No t Available potassium chloride 40 mEq/15 mL oral liquid TAKE 5.625ML BY MOUTH TWICE DAILY FOR 7 DAYS active Not Available Not Available No t Available cephalexin 500 mg capsule TAKE ONE CAPSULE BY MOUTH THREE TIMES DAILY for SEVEN DAYS active Not Available Not Available No t Available prednisone 50 mg tablet TAKE 1 TABLET BY MOUTH ONCE DAILY active Not Available Not Available No t Available lidocaine 5 % topical patch APPLY ONE PATCH every24 hours. 12 hours ON THEN 12 hours off active Not Available Not Available No t Available polymyxin B sulfate 10,000 unit-trimeth oprim 1 mg/mL eye drops INSTILL 1 DROP INTO THE AFFECTED EYES FOUR TIMES DAILY FOR 5 DAYS active Not Available Not Available N ot Available mupirocin 2 % topical ointment APPLY OINTMENT TOPICALLY TO OPEN AFFECTED AREAS TWICE DAILY UNTIL HEALED active Not Available Not Available No t Available levofloxacin 750 mg tablet TAKE 1 TABLET BY MOUTH EVERY 24 HOURS FOR 5 DAYS active Not Available Not Available N ot Available albuterol sulfate HFA 90 mcg/actuatio n aerosol inhaler INHALE 2 PUFFS BY MOUTH 4 TIMES DAILY NEEDED COUGH AND WHEEZING (DO NOT USE AT THE SAME TIME) active Not Available Not Available No t Available amoxicillin 875 mg-potassium clavulanate 125 mg tablet TAKE 1 TABLET BY MOUTH TWICE DAILY FOR 5 DAYS active Not Available Not Available No t Available potassium chloride ER 20 mEq tablet,exten ded release take 2 tablets BY MOUTH TWICE DAILY for FIVE DAYS active Not Available Not Available No t Available Entresto 24 mg-26 mg tablet TAKE 1 TABLET BY MOUTH TWICE DAILY active Not Available Not Available No t Available Vitals Date Recorded Heart rate Respiratory rate Body temperature Oxygen saturation Oxygen saturation in Arterial blood by Pulse oximetry Systolic And Diastolic Provider Name and Address Organization Details Last Updated DateTime 5 68 /min 20 /min 97.6 [degF] 98 % 98 % 136/70 mm[Hg] [facility] 5 13:57:59 Date Recorded Heart rate Respiratory rate Body temperature Oxygen saturation Oxygen saturation in Arterial blood by Pulse oximetry Systolic And Diastolic Provider Name and Address Organization Details Last Updated DateTime 5 86 /min 20 /min 98.6 [degF] 96 % 96 % 140/70 mm[Hg] [facility] 5 12:12:08 Social History None recorded. Functional Status None recorded. Mental Status None recorded. Family History Nothing Reported. Medical History No medical history recorded. Immunizations Vaccine Type Date Status Note Provider Nam e and Address Organization Details Recorded Time pneumococcal, unspecified formulation 6 completed Not Available [facility] 12/13/2024 08:59:56 zoster live 2 completed Not Available [facility] 12/13/2024 08:59:56 pneumococcal, unspecified formulation 2 completed Not Available [facility] 12/13/2024 08:59:56 Pneumococcal conjugate PCV 13 5 completed Not Available [facility] 12/13/2024 08:59:56 zoster recombinant 8 completed Not Available [facility] 12/13/2024 08:59:56 zoster recombinant 8 completed Not Available [facility] 12/13/2024 08:59:56 Hep A-Hep B 9 completed Not Available [facility] 12/13/2024 08:59:56 Hep A-Hep B 9 completed Not Available [facility] 12/13/2024 08:59:56 COVID-19, mRNA, LNP-S, PF, 100 mcg/0.5mL dose or 50 mcg/0.25mL dose 1 completed Not Available [facility] 12/13/2024 08:59:56 COVID-19, mRNA, LNP-S, PF, 100 mcg/0.5mL dose or 50 mcg/0.25mL dose 1 completed Not Available [facility] 12/13/2024 08:59:56 COVID-19, mRNA, LNP-S, PF, 100 mcg/0.5mL dose or 50 mcg/0.25mL dose 1 completed Not Available [facility] 12/13/2024 08:59:56 Tdap 2 completed Not Available [facility] 12/13/2024 08:59:56 pneumococcal polysaccharide PPV23 2 completed Not Available [facility] 12/13/2024 08:59:56 Influenza, high-dose, trivalent, PF 4 completed Not Available [facility] 12/13/2024 08:59:56 Past Encounters Encounter ID Performer Location Encounter Start Date Encounter Closed Date Diagnosis/Indication Diagnosis SNOMED-CT Code Diagnosis ICD10 Code Diagnosis IMO Codes Diagnosis Note [id number] Stephen Cruz DO [facility]) [address] [place] [address] 11/29/2024 13:42:07 12/03/2024 17:43:18 Post-discharge follow-up 562190112 Z09 236449 Asthenia 40968818 R53.1 71852 Acute on c hronic systolic heart failure 529275002 I50.23 796487 Low blood pressure 75558 003 I95.89 424640 Hypothyroidism 28364931 E03.9 10696041 Coronary arteriosclerosis 89217384 I25.10 3646766513 Moderate a ortic valve stenosis 077240781 I35.0 626496 [id number] Stephen Cruz DO [facility]) [address] [place] [address] 12/10/2024 10:05:43 12/11/2024 15:06:53 Acute on chronic systolic heart failure 940139440 I50.23 442781 Hypothyroidism 00095970 E03.9 59687341 [id number] Stephen Cruz DO [facility] ([facility]) [address] [place] [address] 12/13/2024 08:59:46 12/18/2024 09:44:23 Acute on chronic systolic heart failure 618331690 I50.23 650189 Hypothyroidism 44800459 E03.9 29495210 Coronary arteriosclerosis 84854021 I25.10 0250695552 Health Concerns Section Related Observation LastModified by Organization Detai ls LastModified Time None Recorded Concern Status LastModified by Organization Details LastModified Time None Recorded Advance Directives Directive None Recorded Payers Insurance Date Sequence Insurance Name Policy Number Policy Harrison Covered Member ID Harrison Member ID Guarantor Name 01/02/2025 1 [place]ANT[place] - [place]PO) [id number] Reginald Pelaez [id number] Reginald Pelaez 01/02/2025 2 [place] Reginald Pelaez [id number] Reginald Pelaez 01/02/2025 [place] [facility] Reginald Pelaez [id number] Reginald Pelaez Notes Date Note Type Note Provider Name and Address Organization Details Recorded Time 11/29/2024 text/html Care Management - Congestive Heart Failure (CHF)Reported by PatientHPIFor self care, patient reportsrecent hospitalization. For associated symptoms, patient reportsshortness of breath. For prognosis, patient reportsexpected outcome: improve.ROS as noted in the HPI new admit to SNF for therapy after hospitalization for CHF exacerbation. Stephen Cruz DO [address] [place] [address], [address], [facility] 12/03/2024 17:07:03 12/10/2024 text/html Care Management - Congestive Heart Failure (CHF)Reported by PatientIFor self care, patient reportsrecent hospitalization. For associated symptoms, patient reportsshortness of breath. For prognosis, patient reportsexpected outcome: improve.ROS as noted in the HPI Staff reports he is getting stronger and working well with therpay. Stephen Cruz DO [address] [place] [address], [address], [facility] 12/10/2024 17:38:20 12/13/2024 text/html Care Management - Congestive Heart Failure (CHF)Reported by [facility] self care, patient reportsrecent hospitalization. For associated symptoms, patient reportsshortness of breath. For prognosis, patient reportsexpected outcome: improve.ROS as noted in the HPI Visit for d/c orders. Leaving due to insurance, hoping to move to [facility]. Stephen Cruz DO [address] [place] [address], [address], [facility] 12/17/2024 13:27:10
--- OUTSIDE RECORDS SUMMARY | 2025-02-28 19:55 | XMS_ITS | Patient Health Record ---
Author Organization [facility] Address [address] [place] [address] Care Team Providers Care Certified Control Systems Technician Name Role Phone [facility] Primary Care Provider ED Ramesh Unavailable [phone] NdKevin Unavailable Unavailable Allergies No Known Allergies Reason [...] the evening; Duration: 30 days Active Tiotropium [place] Monohydrate 18 MCG 1 capsule by inhaling [...] Status Risk Notes Problem Benign prostatic hyperplasia (016664465) BPH (benign prostatic hyperplasia) (N40.0) Active confirmed Plan Of Treatment Pending Test Test Name Order Date PSA, TOTAL (5363) 11/01/2023 Bladder Scan 11/01/2023 Insurance Providers Payer Name Payer Address Payer Phone Subscriber Number Group Number Insured Name Patient Relationship to Insured Coverage Start Date Coverage End Date [employer] [address] [place] [id number] Reginald Pelaez Self - patient is the insured Medical (General) History Medical History History ICD Code alcohol abuse actinic keratosis gallstones vocal cord cancer COPD HTN hyperlipidemia PVD a fib cirrhosis vitamin d deficiency Surgical History Surgery Date(Month/Year) vocal cord cancer back surgery 2023 Hospitalization History Reason Date(Month/Year) surgery
--- OUTSIDE RECORDS SUMMARY | 2025-02-28 19:55 | XMS_ITS | Patient Health Record ---
Author Organization [facility] Address [address] [place] [address] Care Team Providers Care Gang Pusher Name Role Phone [facility] MD, Angelica Primary Care Provider Un available Eric Frye Unavailable [phone] Reason For Referral Reason back pain compressio n fracture Diagnosis 1 Back pain (M54.9) Diagnosis 2 Wedge compression fr acture of third thoracic vertebra, initial encounter for closed fracture (S22.030A) Referring Provider First Name Angelica Referring Provider Last Name [facility] Referring Provider Speciality Geriatric Medicine Referred Organization [facility] [place] Referred Provider Eric Frye Referred Address [address],[place], [place],[address], Referred Provider Specialty Neurosurgery Referral Priority Routine Problems Problem Type SNOMED Code ICD Code Onset Dates Problem Status W/U Status Risk Notes Problem Tobacco user (390942200) Cigarette smoking (305.1) 008 Problem resolved confirmed [id number]-[id number] 911- Problem General examination of patient (667875567) Annual exam (V70.0) 008 Problem resolved confirmed Christofer-985 911- Problem Thyroid function tests abnormal (947750438) Abnormal thyroid findings (794.5) 008 Problem resolved confirmed Christofer-985 911- Problem Gastroesophageal reflux disease (875000848) Acid reflux disease (530.81) 008 Active confirmed Christofer-985 911- Problem Generalized osteoarthritis (096964119) 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) 008 Active confirmed Christofer-985 911- Plan Of Treatment Next Appt Details Provider Name:Eric Frye, 03/05/2025 10:30:00 AM, [address] [place], [address], Insurance Providers Payer Name Payer Address Payer Phone Subscriber Number Group Number Insured Name Patient Relationship to Insured Coverage Start Date Coverage End Date [employer] [address] [place] [phone] [id number] Reginald Pelaez Self - patient is the insured Medical (General) History Surgical History Surgery Date(Month/Year) NONE
--- OUTSIDE RECORDS SUMMARY | 2025-02-28 19:55 | XMS_ITS | Clinical Summary ---
Author Organization [facility] Address [address] [place] [address] Care Team Providers Care Commercial Energy Auditor Name Role Phone Unavailable Primary Care Provider [...] 3 Active fluticasone propionate (FLONASE) 50 mcg/spray [place], Suspension nasal inhaler Administer in each nostril. 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 Gender Identity Not on file Sexual [...] history exists Medical Devices Implanted Type Area Operator Engineer Device Identifier Shelf Expiration Date Model / Serial / Lot Oil Slc 8.5ml [id number] - [id number] Implanted:Qty: 1 on 08/28/2024 by Georgette Jiménez MD at [facility] Eye Left: Eye [employer] 05/29/2026 [id number] / / 121C0 Description:[id number] Oil Slc 8.5ml [id number] - [id number] Implanted:Qty: 1 on 09/25/2024 by Georgette Jiménez MD at [facility] Eye Left: [employer] [id number] 05/29/2026 [id number] / / 121C0 Oil Slc 8.5ml [id number] - [id number] Implanted:Qty: 1 on 09/25/2024 by Georgette Jiménez MD at [facility] Eye Left: Eye [employer] 05/29/2026 [id number] / [id number] / 121CO Insurance [address] [place] [address] RX [facility] Medicare Part D RX INFOCROSSING Medicaid * Guarantor: [employer] G (C) Account Type Relation to Patient Date of Phone Billing Address Corporate Other DEFAULT ADDRESS [address] [employer] Member Subscriber Plan / Payer (Ef fective 2024-Present) Name:Reginald Pelaez Relation to Subscriber:Self Name:Reginald Pelaez Payer ID:Not on file Group ID:Not on file Type:OK Address: [place] [id number] * Guarantor: [employer]er (C) Account Type Relation to Patient Date of Phone Billing Address Corporate Other DEFAULT ADDRESS [address] [employer] Member Subscriber Plan / Payer (Ef fective 2024-Present) Name:Reginald Pelaez Relation to Subscriber:Self Name:Reginald Pelaez Payer ID:Not on file Group ID:Not on file Type:OK Address: [place] [id number] [place] [address] Advance Directives For more information, please contact: [phone] * Full Code (Latest Code Status on File) Date Activated Date Inactivated Comments 09/25/2024 1:25 PM 09/26/2024 10:17 AM * Full Code Date Activated Date Inactivated Comments 08/28/2024 11:52 AM 08/28/2024 7:35 PM
[2025-02-28 20:03] VITALS: BP 100/61; PULSE 76; RESP 18; TEMP 37.1; O2SAT 95; BMI 23.3
--- NOTE | 2025-02-28 20:19 | ECG_ITS ---
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 Measurements Intervals [place] Rate: 89 P: 57 TX: 318 QRS: 74 QRSD: 133 T: 48 QT: 436 QTc: 532 Interpretive Statements SINUS RHYTHM WITH FIRST DEGREE AV BLOCK WITH OCCASIONAL VENTRICULAR PREMATURE COMPLEXES Prolonged QT interval INTRAVENTRICULAR CONDUCTION DELAY [130+ ms QRS DURATION] Compared to ECG 02/25/2025 13:07:51 Ventricular premature complex(es) now present First degree AV block now present Left-axis deviation no longer present Prolonged QT interval no longer present Electronically Signed On 02-28-2025 23:27:51 CDT by Antonio Apodaca M.D. [email or web address]
[2025-02-28] MEDS: bacitracin ointment Pkt 1 EACH TOPICAL (20:58)
[2025-02-28 21:20] VITALS: BP 90/51; PULSE 100; RESP 16; O2SAT 98
--- NOTE | 2025-02-28 21:29 | W.ED.FALL ---
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 Mechanism unclear; patient states turned to sit in a chair and then noted being wet. Denies head strike. Reports skin tears to right thigh and left forearm. Denies fever or cough. Home health dresses wounds weekly. Patient prepares evening meals himself. Patient desires discharge home tonight. 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 Chronic alcohol use History of smoking [Unclear] Greater trochanteric bursitis of the right hip Related Data Home Medications ?Medication ?Instructions ?Recorded ?Confirmed albuterol sulfate 2.5 mg/3 mL 2.5 mg inhalation Q6H PRN 11/24/24 02/25/25 (0.083 %) solution for nebulization Shortness Of Breath Or Wheezing midodrine 5 mg tablet 5 mg PO TID 02/06/25 02/25/25 pantoprazole 40 mg tablet,delayed 40 mg PO DAILY 02/06/25 02/25/25 release (Protonix) atorvastatin 80 mg tablet 40 mg PO QAM 02/25/25 02/25/25 cephalexin 500 mg capsule 500 mg PO TID 02/25/25 02/25/25 Previous Rx's ?Medication ?Instructions ?Recorded tamsulosin 0.4 mg capsule 0.4 mg PO QPM #30 caps 09/02/22 L3221 orthopedic shoes #1 ea 04/10/24 furosemide 40 mg tablet 20 mg (1/2 x 40 mg) PO DAILY PRN 01/06/25 prn 30 days #0 tabs potassium chloride 40 mEq/15 mL 40 meq (15 mL) PO DAILY 7 days 02/25/25 oral liquid #105 mL Allergies Allergy/AdvReac Type Severity Reaction Status Date / Time No Known Allergies Allergy Verified 02/07/25 07:50 PFSH ED PFSH: Medical History (Updated 02/28/25 @ 21:18 by Aj Puentes MD) Moderate aortic stenosis Compression fracture Greater trochanteric bursitis of right hip Paroxysmal atrial fibrillation Cardiomyopathy Chronic systolic CHF (congestive heart failure) Systolic and diastolic with last known EF 45% in 2023 CAD (coronary artery disease) BPH loc w urin obs/LUTS Chronic decreased force of stream without RUTIs gross hematuria (previously prior to catheterization placement) or retention. 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, initial treatment with imiquimod, follows with Dr Gil Chronic alcohol use History of smoking Nicotine dependence, chewing tobacco, with other nicotine-induced disorders COPD (chronic obstructive pulmonary disease) Compression fx, lumbar spine 07/2022 L1, L3, L4 Lumbar disc disease with radiculopathy Amputated toe of left foot discharged from wound care 07/05/22, follows with Dr Brunner PAC (premature atrial contraction) Chronic hyponatremia Severe peripheral arterial disease Malignant neoplasm of glottis Claudication HTN (hypertension) History of nonmelanoma skin cancer Surgical History Status post kyphoplasty (08/06/22) L1, L3, L4 S/P right coronary artery (RCA) stent placement (08/30/22) S/P peripheral artery angioplasty with stent placement 12/2021 Left common/External Iliac Artery with 80% stenosis treated with AB ARMADA [id number]. 8.0 x 19 mm Omnilink stent was placed. Left Proximal Superficial Femoral Artery with 80-90 % stenosis treated with AB ARMADA 35 [id number]. 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 History of hip surgery right hip fracture repair Family History Other No pertinent family history Social History Smoking and tobacco/nicotine status: former use of tobacco/nicotine Alcohol intake: current Alcohol type: hard liquor Substance/Drug Use: current Substance/Drug use frequency: Special occassions/opportunity only Lives independently: Yes Household members: none Housing: House Physical Exam Const: COMMON NORMALS: no acute distress, patient oriented x3 and alert HENMT: COMMON NORMALS: normocephalic and atraumatic HEAD & SCALP: normocephalic and atraumatic Eye: COMMON NORMALS: Equal, round and reactive pupils present, EOMs intact bilaterally and no scleral icterus PUPIL: Yes Equal, round and reactive pupils present Resp: COMMON NORMALS: normal respiratory effort and No retractions Cardio: COMMON NORMALS: regular rate, regular rhythm and No murmurs present (Cardio) RATE: regular rate RHYTHM: regular rhythm GI: COMMON NORMALS: Normal to inspection, nondistended, normoactive bowel sounds present, Soft to palpation and non-tender PALPATION: Yes Soft to palpation Neuro: COMMON NORMALS: patient oriented x3 SENSORIUM/ORIENTATION: Yes alert Skin: OTHER: Right thigh skin tear approximately nickel-sized mid thigh anterior-lateral aspect. Left forearm volar aspect skin tear approximately 14x4 cm, partial-thickness, not approximable; no foreign body. Course Vital Signs: Vital signs: Vital Signs Temperature 98.8 F 02/28/25 20:03 Pulse Rate 99 02/28/25 21:34 Respiratory Rate 16 02/28/25 21:20 Blood Pressure 118/57 02/28/25 21:34 Pulse Oximetry 98 02/28/25 21:20 MDM - Fall Medical Decision Making 84 yo M with extensive cardiac/PAD/COPD history presents after an unclear-mechanism fall with painful skin tears to right thigh and left forearm; denies head strike, fever, cough; wants to go home. Home health visits weekly. Vitals show BP 100/61 and SpO2 97%; HR not available. PE notable for a nickel-sized right thigh skin tear and a 14x4 cm partial-thickness volar left forearm skin tear, non-approximable, no foreign body, no scalp hematoma. Most recent labs from 02/25 show Hgb 9.8 and WBC 12.4. No new labs or imaging discussed/completed today. [Pertinent Imaging Results Not Available] Fall: Provider suspects possible orthostatic component given low BP and unclear mechanism; patient aware of risk and desires home discharge. No head injury reported. EKG interpreted by me: Time?2019?sinus rhythm with first-degree block and infrequent PVCs, rate of 89, no ST segment elevation or depression, no T wave inversions, QTc = 483. Wound care planned with wet-to-dry approach; pain medication prior to cleaning and dressing. Orthostatic vitals to be obtained after wound care. Disposition aimed toward home per patient preference. Although orthostatic vital signs are numerically positive, patient denies lightheadedness when he stands up. Regardless, I suspect this is the cause of his fall today and for multiple prior falls. He exhibits capacity to make decisions regarding his own health care and though I repeatedly voiced my concern that he is not safe at home, he is adamant that he wants to go home and would not want to consider half-way or other options at this time. As such, he will be discharged home in stable condition in the care of his family No radiology studies performed this visit Discharge Plan Discharge Patient Disposition: Home Clinical Impression: Fall, ISTAP type 3 skin tear of right forearm, ISTAP type 2 skin tear of right lower extremity Condition: Stable Prescriptions: No Action (DME) L3221 orthopedic shoes See Rx Instructions .Route .MEDSUPPLY Qty: 1 0RF Rx Instructions: As directed to the shoe rene midodrine 5 mg tablet 5 mg PO TID Rx Instructions: do not give last dose of day after 6PM or within 4 hrs of bedtime pantoprazole [Protonix] 40 mg tablet,delayed release (DR/EC) 40 mg PO DAILY tamsulosin 0.4 mg Capsule 0.4 mg PO QPM Qty: 30 0RF albuterol sulfate 2.5 mg /3 mL (0.083 %) solution for nebulization 2.5 mg inhalation Q6H PRN (Reason: Shortness Of Breath Or Wheezing) furosemide 40 mg tablet 20 mg PO DAILY PRN (Reason: prn) 30 Days Qty: 0 0RF atorvastatin 80 mg tablet 40 mg PO QAM cephalexin 500 mg capsule 500 mg PO TID potassium chloride 40 mEq/15 mL liquid 40 meq PO DAILY 7 Days Qty: 105 0RF Discharge Orders: Discharge ED (Routine); Ordered 02/28/25 Ordered By: Aj Puentes Discharge Diet: Usual diet Discharge Activity: Increase activity as tolerated Patient Instructions: Skin Tear (ED), Fall Prevention (ED), Patient Portal & Brandy Instructions Activity Restrictions/Additional Instructions: Today you are treated for skin tears. You have multiple bruises and skin tears from multiple falls. Please make every possible intervention to avoid falling in the future. Use a walker or cane if you need to. Print Language: Ghanaian Coding Level of Care Code ED Content Management Specialist for Jorge Betancourt
[2025-02-28 21:34] VITALS: BP 118/57; BP 69/57; BP 87/68; PULSE 109; PULSE 118; PULSE 99
== END 2025-02-28 21:48 | disposition home or self-care (01) ==
PROVIDERS: Emergency Provider Student in an Organized Health Care Education/Training Program
DX: S50.811A Abrasion of right forearm, initial encounter (principal); S71.111A Laceration without foreign body, right thigh, initial encounter; Z87.891 Personal history of nicotine dependence; J44.9 Chronic obstructive pulmonary disease, unspecified; I25.10 Atherosclerotic heart disease of native coronary artery without angina pectoris; Z85.828 Personal history of other malignant neoplasm of skin; Z85.21 Personal history of malignant neoplasm of larynx; I11.0 Hypertensive heart disease with heart failure; I50.42 Chronic combined systolic (congestive) and diastolic (congestive) heart failure; W19.XXXA Unspecified fall, initial encounter
CPT/HCPCS: 93005; 99283; J9999

== ENCOUNTER 2025-03-04 15:31 | Inpatient (IN) | payer OTHER, SELFPAY ==
--- OUTSIDE RECORDS SUMMARY | 2024-02-13 06:00 | XMS_ITS ---
Author Organization [facility], [employer] Address [address] [place] [address] Care Team Providers Care Medical Laboratory Technicians Name Role Phone [facility] Primary Care Provider Lucina claudia KERN ED Unavailable [phone] Sd, Early Unavailable Unavailable DAVIN HOWARD Unavailable [phone] REASON FOR VISIT 6 wks w/ ua/pvr/psa Encounters Encounter Location Date Provider Diagnosis [facility], [employer] [address] [place] [address] 02/13/2024 DAVIN HOWARD Plan Of Treatment No Information Progress Notes * Reginald PELAEZ MDOB:[birth year] (84 yo M)Acc No.[id number]:02/13/2024 Progress Notes Patient: Mayo BRANReginald HAMMER Provider: PIERO Carbone :1940 A ge:83 Y S ex:Male Date:02/13/2024 Address:[address] [place], [place] [phone] Pcp:[facility] Subjective: * Chief Complaints: * 1 . 6 wks w/ ua/pvr/psa. * Medical History: Objective: * Vitals: Assessment: Plan: * Treatment: * Billing Information: * Visit Code: * Procedure Codes: * Electronic signature of DAVIN HOWARD APRN on 03/04/2025 at 03:37 PM CDT Sign off status: Pending * Provider: PIERO Carbone Date: 0 02/13/2024 Generated for Nelia reardon/Tiffanie/Sonia on: 1 03:37 PM CDT
--- OUTSIDE RECORDS SUMMARY | 2025-03-04 15:37 | XMS_ITS | Patient Health Record ---
Author Organization [facility] Address [address] [place] [address] Care Team Providers Care Time Signal Wirer Name Role Phone [facility] MD, [employer] Primary Care Provider Un available Eric Frye Unavailable [phone] Reason For Referral Reason back pain compressio n fracture Diagnosis 1 Back pain (M54.9) Diagnosis 2 Wedge compression fr acture of third thoracic vertebra, initial encounter for closed fracture (S22.030A) Referring Provider First Name Kodak Referring Provider Last Name [facility] Referring Provider Speciality Geriatric Medicine Referred Organization [facility] Referred Provider Eric Frye Referred Address [address],[place], [place],[address], Referred Provider Specialty Neurosurgery Referral Priority Routine Problems Problem Type SNOMED Code ICD Code Onset Dates Problem Status W/U Status Risk Notes Problem Tobacco user (512521804) Cigarette smoking (305.1) 008 Problem resolved confirmed [id number] 911- Problem General examination of patient (760809604) Annual exam (V70.0) 008 Problem resolved confirmed [id number] 911- Problem Thyroid function tests abnormal (726884170) Abnormal thyroid findings (794.5) 008 Problem resolved confirmed [id number] 911- Problem Gastroesophageal reflux disease (073127816) Acid reflux disease (530.81) 008 Active confirmed [id number] 911- Problem Generalized osteoarthritis (277075427) 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) 008 Active confirmed [id number] 911- Plan Of Treatment Next Appt Details Provider Name:Eric Frye, 03/05/2025 10:30:00 AM, [address] [place], [address], Insurance Providers Payer Name Payer Address Payer Phone Subscriber Number Group Number Insured Name Patient Relationship to Insured Coverage Start Date Coverage End Date [employer] [address] [place] [phone] [id number] Reginald Pelaez Self - patient is the insured Medical (General) History Surgical History Surgery Date(Month/Year) NONE
--- OUTSIDE RECORDS SUMMARY | 2025-03-04 15:37 | XMS_ITS | Patient Health Record ---
Author Organization [facility] Address [address] [place] [address] Care Team Providers Care School Plant Consultant Name Role Phone [facility] Primary Care Provider ED Ramesh Unavailable [phone] SdKevin Unavailable Unavailable Allergies No Known Allergies [...] the evening; Duration: 30 days Active Tiotropium [place] Monohydrate 18 MCG 1 capsule by inhaling [...] Status Risk Notes Problem Benign prostatic hyperplasia (038321085) BPH (benign prostatic hyperplasia) (N40.0) Active confirmed Plan Of Treatment Pending Test Test Name Order Date PSA, TOTAL (5363) 11/01/2023 Bladder Scan 11/01/2023 Insurance Providers Payer Name Payer Address Payer Phone Subscriber Number Group Number Insured Name Patient Relationship to Insured Coverage Start Date Coverage End Date [employer] [address] [place] [id number] Reginald Pelaez Self - patient is the insured Medical (General) History Medical History History ICD Code alcohol abuse actinic keratosis gallstones vocal cord cancer COPD HTN hyperlipidemia PVD a fib cirrhosis vitamin d deficiency Surgical History Surgery Date(Month/Year) vocal cord cancer back surgery 2023 Hospitalization History Reason Date(Month/Year) surgery
--- OUTSIDE RECORDS SUMMARY | 2025-03-04 15:37 | XMS_ITS | Clinical Summary ---
Author Organization [facility] Address [address] [place] [address] Care Team Providers Care Rim Fire Priming Tool Setter Name Role Phone Unavailable Primary Care Provider [...] 3 Active fluticasone propionate (FLONASE) 50 mcg/spray [place], Suspension nasal inhaler Administer in each nostril. 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 Gender Identity Not on file Sexual Orientation [...] history exists Medical Devices Implanted Type Area Earth Mover Device Identifier Shelf Expiration Date Model / Serial / Lot Oil Slc 8.5ml [id number] - [id number] Implanted:Qty: 1 on 08/28/2024 by Georgette Jiménez MD at [facility] Eye Left: Eye [employer] 05/29/2026 [id number] / / [id number] Description:[id number] Oil Slc 8.5ml [id number] - [id number] Implanted:Qty: 1 on 09/25/2024 by Georgette Jiménez MD at [facility] Eye Left: Eye [employer] [id number] 05/29/2026 [id number] / / 121C0 Oil Slc 8.5ml [id number] - [id number] Implanted:Qty: 1 on 09/25/2024 by Georgette Jiménez MD at [facility] Eye Left: Eye [employer] 05/29/2026 [id number] / [id number] / [id number] Insurance [address] [place] [address] RX [facility] Medicare Part D RX INFOCROSSING Medicaid * Guarantor: [employer] G (C) Account Type Relation to Patient Date of Phone Billing Address Corporate Other DEFAULT ADDRESS [address] [employer] Member Subscriber Plan / Payer (Ef fective 2024-Present) Name:Reginald Pelaez Relation to Subscriber:Self Name:Reginald Pelaez Payer ID:Not on file Group ID:Not on file Type:[place] Address: [place] [id number] * Guarantor: [employer]er (C) Account Type Relation to Patient Date of Phone Billing Address Corporate Other DEFAULT ADDRESS [address] [employer] Member Subscriber Plan / Payer (Ef fective 2024-Present) Name:Reginald Pelaez Relation to Subscriber:Self Name:Reginald Pelaez Payer ID:Not on file Group ID:Not on file Type:[place] Address: [place] [id number] [place] [address] Advance Directives For more information, please contact: [phone] * Full Code (Latest Code Status on File) Date Activated Date Inactivated Comments 09/25/2024 1:25 PM 09/26/2024 10:17 AM * Full Code Date Activated Date Inactivated Comments 08/28/2024 11:52 AM 08/28/2024 7:35 PM
--- OUTSIDE RECORDS SUMMARY | 2025-03-04 15:37 | XMS_ITS | Data Portability ---
Author Organization [facility] Zev Saldana, [facility] Address [address] [place] [address] Assessment No assessment recorded. Plan of Treatment [...] By Organization Details Last Modified Time 11/29/2024 [id number] Records reviewed . Admitted with hypotension work up for adrenal insufficiency negative. Failed restarting Entresto. EF improved to 50-55%. Elected for no anticoagulation with risk of falls. Will check daily weights and labs Tuesday. Not available 11/29/2024 18:31:35 12/10/2024 [id number] Breathing improv ed, working hard with therapy. Mood good. Not available 12/10/2024 13:59:46 12/13/2024 [id number] Admitted with hypotension work up for adrenal insufficiency negative. Failed restarting Entresto. EF improved to 50-55%. Elected for no anticoagulation with risk of falls. Will check daily weights and labs Tuesday.Planning to d/c soon. Wishing to move to [facility]. weight down a few lbs. Breathing improved, but he will need Inogen portable oxygen system at 2lpm for 99 months. [email or web address] Not available 12/13/2024 12:15:48 Reason for Referral None Reported. Problems Name Problem SNOMED Code Status Onset Date Resolution Date Notes Provider Name and Address Organization Details Recorded Time Post-discharg e follow-up 695061639 [facility] 18:30:01 Asthenia 12715177 Active 2024 PAULA TRAYLOR [facility] 5 18:30:02 Acute on chronic systolic heart failure 182899416 Active 2024 PAULA TRAYLOR [facility] 5 18:30:03 Low blood pressure 71130741 Active 2024 PAULA TRAYLOR [facility] 5 18:30:05 Hypothyroidis m 38824620 Active 2024 PAULA TRAYLOR [facility] 18:30:08 Coronary arteriosclero sis 64993552 Active 2024 PAULA TRAYLOR [facility] 5 18:30:10 Moderate aortic valve stenosis 102607493 Active 2024 PAULA TRAYLOR [facility] 18:30:11 Problem Notes None recorded. Medical [...] [degF] 98 % 98 % 136/70 mm[Hg] [facility] 5 13:57:59 Date Recorded Heart rate Respiratory rate Body temperature Oxygen saturation Oxygen saturation in Arterial blood by Pulse oximetry Systolic And Diastolic Provider Name and Address Organization Details Last Updated DateTime 5 86 /min 20 /min 98.6 [degF] 96 % 96 % 140/70 mm[Hg] [facility] 5 12:12:08 Social History None recorded. Functional Status None recorded. Mental Status None recorded. Family History Nothing Reported. Medical History No medical history recorded. Immunizations Vaccine Type Date Status Note Provider Nam e and Address Organization Details Recorded Time pneumococcal, unspecified formulation 6 completed Not Available [facility] 12/13/2024 08:59:56 zoster live 2 completed Not Available [facility] 12/13/2024 08:59:56 pneumococcal, unspecified formulation 2 completed Not Available [facility] 12/13/2024 08:59:56 Pneumococcal conjugate PCV 13 5 completed Not Available [facility] 12/13/2024 08:59:56 zoster recombinant 8 completed Not Available [facility] 12/13/2024 08:59:56 zoster recombinant 8 completed Not Available [facility] 12/13/2024 08:59:56 Hep A-Hep B 9 completed Not Available [facility] 12/13/2024 08:59:56 Hep A-Hep B 9 completed Not Available [facility] 12/13/2024 08:59:56 COVID-19, mRNA, LNP-S, PF, 100 mcg/0.5mL dose or 50 mcg/0.25mL dose 1 completed Not Available [facility] 12/13/2024 08:59:56 COVID-19, mRNA, LNP-S, PF, 100 mcg/0.5mL dose or 50 mcg/0.25mL dose 1 completed Not Available [facility] 12/13/2024 08:59:56 COVID-19, mRNA, LNP-S, PF, 100 mcg/0.5mL dose or 50 mcg/0.25mL dose 1 completed Not Available [facility] 12/13/2024 08:59:56 Tdap 2 completed Not Available [facility] 12/13/2024 08:59:56 pneumococcal polysaccharide PPV23 2 completed Not Available [facility] 12/13/2024 08:59:56 Influenza, high-dose, trivalent, PF 4 completed Not Available [facility] 12/13/2024 08:59:56 Past Encounters Encounter ID Performer Location Encounter Start Date Encounter Closed Date Diagnosis/Indication Diagnosis SNOMED-CT Code Diagnosis ICD10 Code Diagnosis IMO Codes Diagnosis Note [id number] Stephen Cruz DO [facility]) [address] [place] [address] 11/29/2024 13:42:07 12/03/2024 17:43:18 Post-discharge follow-up 385021403 Z09 386871 Asthenia 51007776 R53.1 42474 Acute on c hronic systolic heart failure 723825637 I50.23 062432 Low blood pressure 27915 003 I95.89 723232 Hypothyroidism 55987077 E03.9 19201740 Coronary arteriosclerosis 42437094 I25.10 9066377827 Moderate a ortic valve stenosis 680773973 I35.0 404845 [id number] Stephen Cruz DO [facility] ([facility]) [address] [place] [address] 12/10/2024 10:05:43 12/11/2024 15:06:53 Acute on chronic systolic heart failure 511783551 I50.23 496993 Hypothyroidism 88860746 E03.9 72420186 [id number] Stephen Cruz DO [facility] ([facility]) [address] [place] [address] 12/13/2024 08:59:46 12/18/2024 09:44:23 Acute on chronic systolic heart failure 294982253 I50.23 291900 Hypothyroidism 80514479 E03.9 23001976 Coronary arteriosclerosis 56606799 I25.10 1906497616 Health Concerns Section Related Observation LastModified by Organization Detai ls LastModified Time None Recorded Concern Status LastModified by Organization Details LastModified Time None Recorded Advance Directives Directive None Recorded Payers Insurance Date Sequence Insurance Name Policy Number Policy Harrison Covered Member ID Harrison Member ID Guarantor Name 01/02/2025 1 [place] - [place]PO) [id number] Reginald Pelaez [id number] Reginald Pelaez 01/02/2025 2 [place] Reginald Pelaez [id number] Reginald Pelaez 01/02/2025 [place] [facility] Reginald Pelaez [id number] Reginald Pelaez Notes Date Note Type Note Provider Name and Address Organization Details Recorded Time 11/29/2024 text/html Care Management - Congestive Heart Failure (CHF)Reported by PatientHPIFor self care, patient reportsrecent hospitalization. For associated symptoms, patient reportsshortness of breath. For prognosis, patient reportsexpected outcome: improve.ROS as noted in the HPI new admit to SNF for therapy after hospitalization for CHF exacerbation. Stephen Cruz DO [address] [place] [address], [phone], [facility] Castaneda [facility] 12/03/2024 17:07:03 12/10/2024 text/html Care Management - Congestive Heart Failure (CHF)Reported by PatientIFor self care, patient reportsrecent hospitalization. For associated symptoms, patient reportsshortness of breath. For prognosis, patient reportsexpected outcome: improve.ROS as noted in the HPI Staff reports he is getting stronger and working well with therpay. Stephen Cruz DO [address] [place] [address], [address], [facility] 12/10/2024 17:38:20 12/13/2024 text/html Care Management - Congestive Heart Failure (CHF)Reported by [facility] self care, patient reportsrecent hospitalization. For associated symptoms, patient reportsshortness of breath. For prognosis, patient reportsexpected outcome: improve.ROS as noted in the HPI Visit for d/c orders. Leaving due to insurance, hoping to move to [facility]. Stephen Cruz DO [address] [place] [address], [phone], [facility] 12/17/2024 13:27:10
[2025-03-04 15:40] VITALS: BP 158/98; PULSE 76; RESP 16; TEMP 36.8; O2SAT 88; BMI 25.1
--- NOTE | 2025-03-04 15:40 | CTR_ITS ---
PROCEDURE INFORMATION: Exam: CT Head Without Contrast Exam date and time: 03/04/2025 4:23 PM Age: 84 years old Clinical indication: Injury or trauma; Blunt trauma (contusions or hematomas); Consciousness not specified; Injury details: Multiple falls over the last weekend; Prior surgery; Surgery date: 6+ months; Surgery type: Kyphoplasty; PT presents with multiple falls over the past weekend. Patient states he fell on was seen and had legs bandaged at that time. TECHNIQUE: Imaging protocol: Computed tomography of the head without contrast. Radiation optimization: All CT scans at this facility use at least one of these dose optimization techniques: automated exposure control; mA and/or kV adjustment per patient size (includes targeted exams where dose is matched to clinical indication); or iterative reconstruction. COMPARISON: CT head wo con* [id number] 11/24/2024 5:46 PM RADIATION DOSE METRICS: Total DLP (mGy-cm): 1076.08 FINDINGS: Brain: Age-related brain parenchymal atrophy. Areas of hypoattenuation in the periventricular and subcortical deep white matter likely on the basis of chronic microvascular ischemic changes. No acute intra cranial hemorrhage. No mass effect or midline shift. No definitive CT evidence of acute territorial infarction. Cerebral ventricles: Prominence of the lateral ventricular system likely on the basis of parenchymal volume loss. Paranasal sinuses: Visualized sinuses are unremarkable. No fluid levels. Mastoid air cells: Visualized mastoid air cells are well aerated. Bones: Intact calvarium. Soft tissues: Unremarkable. Orbits: Left globe prosthesis. CT/CT head wo con* [id number] IMPRESSION: No acute intracranial abnormality. Senescent changes.
--- NOTE | 2025-03-04 15:40 | CTR_ITS ---
PROCEDURE INFORMATION: Exam: CT Abdomen And Pelvis Without Contrast Exam date and time: 03/04/2025 4:26 PM Age: 84 years old Clinical indication: Abdominal pain; Prior surgery; Surgery date: 6+ months; Surgery type: Kyphoplasty; PT presents with multiple falls over the past weekend. Patient states he fell on was seen and had legs bandaged at that time. TECHNIQUE: Imaging protocol: Computed tomography of the abdomen and pelvis without contrast. Radiation optimization: All CT scans at this facility use at least one of these dose optimization techniques: automated exposure control; mA and/or kV adjustment per patient size (includes targeted exams where dose is matched to clinical indication); or iterative reconstruction. COMPARISON: CT abdomen pelvis w con* [id number] 05/05/2024 10:45 AM RADIATION DOSE METRICS: Total DLP (mGy-cm): 567.29 FINDINGS: Lungs: Patchy atelectasis involves both lung bases. Liver: The liver demonstrates an irregular contour and parenchymal heterogeneity consistent with cirrhosis. I see no liver mass. Gallbladder and biliary ducts: Multiple gallstones are noted in the gallbladder but the gallbladder does not appear inflamed and demonstrates normal wall thickness. Pancreas: Normal. No ductal dilation. Spleen: Normal. No splenomegaly. Adrenal glands: Normal. No mass. Kidneys and ureters: Normal. No hydronephrosis. Stomach and bowel: Unremarkable. No obstruction. No mucosal thickening. Appendix: No evidence of appendicitis. Intraperitoneal space: Unremarkable. No free air. No significant fluid collection. Vasculature: Unremarkable. No abdominal aortic aneurysm. Lymph nodes: Unremarkable. No enlarged lymph nodes. Urinary bladder: Unremarkable as visualized. Reproductive: Unremarkable as visualized. Bones/joints: The bony structures demonstrate diffuse osteopenia. Old compression fractures involve the T12, L1, L3 and L4 vertebral bodies. Multiple kyphoplasties are noted. No acute compression fracture noted. Soft tissues: Unremarkable. CT/CT abdomen pelvis wo con [id number] IMPRESSION: 1. No acute findings. 2. Cholelithiasis 3. Hepatic cirrhosis 4. Osteoporosis with multiple old compression fractures
--- NOTE | 2025-03-04 16:01 | W.ED.FALL ---
HPI - Fall General: Chief Complaint: Fall Stated Complaint: fall - ETOH Time Seen by Provider: 03/04/25 15:36 History of Present Illness: 84-year-old male with a history of alcoholism, multiple frequent falls, aortic stenosis, cardiomyopathy and congestive heart failure, paroxysmal atrial fibrillation, coronary artery disease, BPH, GERD, COPD, chronic hyponatremia, peripheral arterial disease and hypertension who presents emergency room by ambulance with concern for falls. Apparently a family member had called the ambulance. He has been here numerous times recently and it is been suggested to him many times to stop drinking and possibly it is time to go to a intermediate which he refuses. However he does say he is cutting back on his drinking now. He has no altered mental status at this moment. No focal motor deficits. He does not complain of a headache. No chest pain. No abdominal pain. Just some mild flank pain and a bruise on his left hip that he says is new. Related Data Home Medications ?Medication ?Instructions ?Recorded ?Confirmed albuterol sulfate 2.5 mg/3 mL 2.5 mg inhalation Q6H PRN 11/24/24 02/25/25 (0.083 %) solution for nebulization Shortness Of Breath Or Wheezing midodrine 5 mg tablet 5 mg PO TID 02/06/25 02/25/25 pantoprazole 40 mg tablet,delayed 40 mg PO DAILY 02/06/25 02/25/25 release (Protonix) atorvastatin 80 mg tablet 40 mg PO QAM 02/25/25 02/25/25 cephalexin 500 mg capsule 500 mg PO TID 02/25/25 02/25/25 Previous Rx's ?Medication ?Instructions ?Recorded tamsulosin 0.4 mg capsule 0.4 mg PO QPM #30 caps 09/02/22 [id number] orthopedic shoes #1 ea 04/10/24 furosemide 40 mg tablet 20 mg (1/2 x 40 mg) PO DAILY PRN 01/06/25 prn 30 days #0 tabs Allergies Allergy/AdvReac Type Severity Reaction Status Date / Time No Known Allergies Allergy Verified 02/07/25 07:50 Review of Systems Narrative: Constitutional symptoms: Negative except as documented in HPI. Skin symptoms: Negative except as documented in HPI. Eye symptoms: Negative except as documented in HPI. ENMT symptoms: Negative except as documented in HPI. Respiratory symptoms: Negative except as documented in HPI. Cardiovascular symptoms: Negative except as documented in HPI. Gastrointestinal symptoms: Negative except as documented in HPI. Genitourinary symptoms: Negative except as documented in HPI. Musculoskeletal symptoms: Negative except as documented in HPI. Neurologic symptoms: Negative except as documented in HPI. Psychiatric symptoms: Negative except as documented in HPI. Endocrine symptoms: Negative except as documented in HPI. PFS ED PFSH: Medical History (Updated 03/04/25 @ 17:45 by Lucila Dutton MD) Moderate aortic stenosis Compression fracture Greater trochanteric bursitis of right hip Paroxysmal atrial fibrillation Cardiomyopathy Chronic systolic CHF (congestive heart failure) Systolic and diastolic with last known EF 45% in 2023 CAD (coronary artery disease) BPH loc w urin obs/LUTS Chronic decreased force of stream without RUTIs gross hematuria (previously prior to catheterization placement) or retention. 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, initial treatment with imiquimod, follows with Dr Gil Chronic alcohol use History of smoking Nicotine dependence, chewing tobacco, with other nicotine-induced disorders COPD (chronic obstructive pulmonary disease) Compression fx, lumbar spine 07/2022 L1, L3, L4 Lumbar disc disease with radiculopathy Amputated toe of left foot discharged from wound care 07/05/22, follows with Dr Brunner PAC (premature atrial contraction) Chronic hyponatremia Severe peripheral arterial disease Malignant neoplasm of glottis Claudication HTN (hypertension) History of nonmelanoma skin cancer Surgical History Status post kyphoplasty (08/06/22) L1, L3, L4 S/P right coronary artery (RCA) stent placement (08/30/22) S/P peripheral artery angioplasty with stent placement 12/2021 Left common/External Iliac Artery with 80% stenosis treated with AB ARMADA [id number]. 8.0 x 19 mm Omnilink stent was placed. Left Proximal Superficial Femoral Artery with 80-90 % stenosis treated with AB ARMADA 35 OTW [id number]. 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 Skin: Warm, dry. Numerous skin tears. When he arrives he has old dressings were placed at various visits in the last few weeks. He has not changed any of these were followed with wound care. I do not see any signs of infection today Head: Normocephalic, atraumatic. Neck: Supple, trachea midline. Eye: Extraocular movements are intact. Ears, nose, mouth and throat: mucosa moist. Cardiovascular: Regular, Normal peripheral perfusion. Respiratory: Lungs are clear to auscultation, respirations are non-labored, breath sounds are equal, Symmetrical chest wall expansion. Gastrointestinal: Soft, Nontender, Non distended Musculoskeletal: Normal ROM, no deformity. Neurological: Alert and oriented, No focal neurological deficit observed. Psychiatric: Cooperative, appropriate mood & affect. Course Vital Signs: Vital signs: Vital Signs Temperature 98.3 F 03/04/25 15:40 Pulse Rate 73 03/04/25 16:23 Respiratory Rate 16 03/04/25 15:40 Blood Pressure 91/50 03/04/25 16:23 Pulse Oximetry 96 03/04/25 16:23 Oxygen Delivery Me thod Room Air 03/04/25 16:23 MDM - Fall Medical Decision Making Medical decision making: Differential diagnosis including but not limited to and based on the above HPI, review of systems and physical exam: In this patient with multiple falls his only new complaint today is left flank pain so CT scan was ordered to examine that. Basic lab work and alcohol level ordered as well. Orders placed to evaluate differential diagnosis based on the above differential, HPI and physical exam CT head: Senescent changes but no acute intracranial process. No intracranial hemorrhage, no evidence of infarct. No evidence of acute fracture. This was reviewed and interpreted by myself the emergency room physician. I also reviewed the radiology report. CT of the abdomen pelvis without contrast: This was ordered to rule out any intra-abdominal trauma. This was negative. This was reviewed and interpreted by myself the emergency room physician. I also reviewed the radiology report. Lab Review: Laboratory results were reviewed and interpreted by myself the emergency room physician. Mild leukocytosis. Stable anemia with a hemoglobin of 9. Sodium is low at 124. This is actually quite a bit lower than usual. Blood alcohol level is only 11 today. I reviewed the patient's medical record. 84-year-old male with a history of alcoholism, multiple frequent falls, aortic stenosis, cardiomyopathy and congestive heart failure, paroxysmal atrial fibrillation, coronary artery disease, BPH, GERD, COPD, chronic hyponatremia, peripheral arterial disease and hypertension. Increased frequency of ER visits for falls recently. Reexamination: Family has arrived and I went and spoke with him and with his family member and they are wanting to get him admitted to a intermediate. With the [place] nursing homes nearby he cannot be drinking he says he has wanting to quit drinking and is willing to try to stop and willing to go into a intermediate. Consultation: I spoke with Dr. Patton who is on-call for the hospital service who agrees to admission. Assessment and plan: Hypokalemia Hyponatremia Alcohol abuse Generalized weakness Multiple falls Multiple skin tears Dehydration 40 p.o. and 40 IV potassium in the emergency room. 500 mL liter normal saline bolus -I discussed the patient with the hospitalist on-call who is admitting the patient. - Discussed findings and plan with patient. Answered any questions. - All laboratory values were reviewed and interpreted personally by myself, the ER physician - All imaging was reviewed and interpreted personally by myself, the ER physician. - Evaluation and treatment of this problem were appropriate in the emergency setting Lab Data 03/04/25 16:15 03/04/25 16:15 Radiology Impressions Abdomen/Pelvis CT 03/04/25 15:40 IMPRESSION: 1. No acute findings. 2. Cholelithiasis 3. Hepatic cirrhosis 4. Osteoporosis with multiple old compression fractures Head CT 03/04/25 15:40 IMPRESSION: No acute intracranial abnormality. Senescent changes. Laboratory Results WBC 12.99 10^3/uL (3.29-11.43) H 03/04/25 16:15 RBC 3.44 10^6/uL (3.85-5.65) L 03/04/25 16:15 Hgb 9.10 g/dL (11.27-16.99) L 03/04/25 16:15 Hct 28.5 % (37-53) L 03/04/25 16:15 MCV 82.8 fl (82-101) 03/04/25 16:15 MCH 26.5 pg (27-33) L 03/04/25 16:15 MCHC 31.9 g/dL (30-55) 03/04/25 16:15 RDW 19.9 % (12.1-15.1) H 03/04/25 16:15 Plt Count 478 10^3/cmm (157-399) H 03/04/25 16:15 MPV 9.0 fL (7.4-10.4) 03/04/25 16:15 Neut % (Auto) 75.8 % 03/04/25 16:15 Lymph % (Auto) 12.2 % 03/04/25 16:15 [place] % (Auto) 10.1 % 03/04/25 16:15 Eos % (Auto) 0.5 % 03/04/25 16:15 Baso % (Auto) 0.5 % 03/04/25 16:15 Neut # (Auto) 9.84 10^3/uL (1.8-7.7) H 03/04/25 16:15 Lymph # (Auto) 1.6 10^3/uL (0.8-4.8) 03/04/25 16:15 [place] # (Auto) 1.3 10^3/uL (0.2-0.9) H 03/04/25 16:15 Eos # (Auto) 0.1 10^3/uL (0.0-0.8) 03/04/25 16:15 Baso # (Auto) 0.1 10^3/uL (0.0-0.1) 03/04/25 16:15 Nucleated RBC % (auto) 0.2 % 03/04/25 16:15 Nucleated RBCs # 0.0 /100WBC 03/04/25 16:15 Sodium 124 mmol/L (136-145) L 03/04/25 16:15 Potassium 2.4 mmol/L (3.5-5.1) L* 03/04/25 16:15 Chloride 79 mmol/L (98-107) L 03/04/25 16:15 Carbon Dioxide 30 mmol/L (22-29) H 03/04/25 16:15 Anion Gap 17.4 (5-19) 03/04/25 16:15 BUN 21 mg/dL (8-23) 03/04/25 16:15 Creatinine 1.0 mg/dL (0.7-1.2) 03/04/25 16:15 GFR Calculation Not Reportable 03/04/25 16:15 Glucose 105 mg/dL (65-115) 03/04/25 16:15 Calculated Osmolality 261 mOsm/kg (285-295) L 03/04/25 16:15 Calcium 8.6 mg/dL (8.5-10.5) 03/04/25 16:15 Total Bilirubin 0.7 mg/dL (0.15-1.2) 03/04/25 16:15 AST 26 U/L (0-40) 03/04/25 16:15 ALT 16 U/L (0-41) 03/04/25 16:15 Alkaline Phosphatase 169 U/L (40-130) H 03/04/25 16:15 Total Protein 6.6 g/dL (6.6-8.7) 03/04/25 16:15 Albumin 3.4 g/dL (3.5-5.2) L 03/04/25 16:15 Globulin 3.2 g/dL (1.3-4.6) 03/04/25 16:15 Ethyl Alcohol 11 mg/dL (0-10) H 03/04/25 16:15 All radiology interpretation(s) finalized by discharge Discharge Plan Discharge Patient Disposition: Admitted As Inpatient Admit Provider: Alexander Patton Clinical Impression: Hypokalemia, Hyponatremia, Alcohol abuse, Weakness, Multiple falls, Multiple skin tears Condition: Stable Coding Level of Care Code ED Director [facility]
[2025-03-04 16:23] VITALS: BP 91/50; PULSE 73; O2SAT 96
[2025-03-04 16:33] LABS: Hematocrit 28.5 % (37-53); Hemoglobin 9.10 g/dL (11.27-16.99); Mean Corpuscular HGB Conc 31.9 g/dL (30-55); Mean Corpuscular Hemoglobin 26.5 pg (27-33); Mean Corpuscular Volume 82.8 fl (82-101); Nucleated Red Blood Cells % 0.2 %; Platelet Count 478 10^3/cmm (157-399); Red Blood Count 3.44 10^6/uL (3.85-5.65); White Blood Count 12.99 10^3/uL (3.29-11.43)
[2025-03-04 16:56] LABS: Alanine Aminotransferase 16 U/L (0-41); Albumin Level 3.4 g/dL (3.5-5.2); Alcohol Level 11 mg/dL (0-10); Alkaline Phosphatase 169 U/L (40-130); Anion Gap 17.4 (5-19); Aspartate Amino Transferase 26 U/L (0-40); Blood Urea Nitrogen 21 mg/dL (8-23); Calcium 8.6 mg/dL (8.5-10.5); Carbon Dioxide 30 mmol/L (22-29); Chloride 79 mmol/L (98-107); Creatinine Clr Calc Pharmacy 59.0185; Globulin 3.2 g/dL (1.3-4.6); Glucose 105 mg/dL (65-115); Osmolality Calculated 261 mOsm/kg (285-295); Sodium 124 mmol/L (136-145); Total Protein 6.6 g/dL (6.6-8.7)
[2025-03-04 16:57] LABS: Potassium 2.4 mmol/L (3.5-5.1)
[2025-03-04] MEDS: potassium chloride oral liq 20 mEq/15 mL UDC 40 MEQ PO (17:21)
[2025-03-04 18:00] VITALS: BP 112/61; PULSE 74; O2SAT 90
[2025-03-04] MEDS: potassium chloride premix 100 ML 50 MEQ IV ×2 (18:23→21:21)
--- NOTE | 2025-03-04 18:46 | PC.NURSE ---
Pt bed changed into hospital gown, call light within reach, pt has pillow under right hip. 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
--- NOTE | 2025-03-04 19:01 | PC.NURSE ---
PT has sacral wound that is non blanchable with small open area to left buttock fold.
[2025-03-04 19:06] VITALS: BP 126/97; PULSE 76; RESP 16; O2SAT 93
--- NOTE | 2025-03-04 20:05 | PM.HP ---
Providers/Chief Complaint Admitting Physician: Alexander Patton MD/dr brown--do Chief Complaint: fall - ETOH History of Present Illness Reginald Pelaez is a 84 year old male who is known to drink heavily as a youngster to date. Patient is accompanied by his cousin who is also a education and outreach coordinator. The cousin had to add more history about the patient being a very heavy drinker you can keep up how much he drinks. And when asked the patient directly he is very vague as to how much he drinks he said he drinks quite a bit what does not mean he does not want to say. Patient had been noted to have weakness of the lower extremities bilaterally the cousin and related. The cousin felt that the combination of weak lower extremities from debility and drunkenness does not go well with falls. Patient does have frequent falls because of weak extremities and because when he walks he misses where he is needed to sit all the direction he is going. The cousin who is the caregiver suggest that patient really need a rehab to get some strength to the lower extremity and most likely will be a way for patient to follow through with some form of detoxing and keeping himself away from alcohol. Rehabilitation recommended concerning patient's myopathy and ambulatory dysfunction leading to multiple falls Review of Systems Narrative: System review upon 10 organ review were significant for myopathy regarding lower extremity muscle weakness and drunkenness leading to musculoskeletal ambulatory dysfunction and falls Medications/Allergies Home Medications ?Medication ?Instructions ?Recorded ?Confirmed ?Last Taken ?Type tamsulosin 0.4 mg capsule 0.4 mg PO QPM #30 caps 09/02/22 02/25/25 02/24/25 Rx [id number] orthopedic shoes #1 ea 04/10/24 02/25/25 Unknown Rx albuterol sulfate 2.5 mg/3 mL 2.5 mg inhalation Q6H PRN 11/24/24 02/25/25 Unknown History (0.083 %) solution for nebulization Shortness Of Breath Or Wheezing furosemide 40 mg tablet 20 mg (1/2 x 40 mg) PO DAILY PRN 01/06/25 02/25/25 01/03/25 Rx prn 30 days #0 tabs midodrine 5 mg tablet 5 mg PO TID 02/06/25 02/25/25 Unknown History pantoprazole 40 mg tablet,delayed 40 mg PO DAILY 02/06/25 02/25/25 02/25/25 History release (Protonix) atorvastatin 80 mg tablet 40 mg PO QAM 02/25/25 02/25/25 02/25/25 History cephalexin 500 mg capsule 500 mg PO TID 02/25/25 02/25/25 Unknown History Allergies Allergy/AdvReac Type Severity Reaction Status Date / Time No Known Allergies Allergy Verified 02/07/25 07:50 PFSH Acute PFSH: Medical History Moderate aortic stenosis Compression fracture Greater trochanteric bursitis of right hip Paroxysmal atrial fibrillation Cardiomyopathy Chronic systolic CHF (congestive heart failure) Systolic and diastolic with last known EF 45% in 2023 CAD (coronary artery disease) BPH loc w urin obs/LUTS Chronic decreased force of stream without RUTIs gross hematuria (previously prior to catheterization placement) or retention. 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, initial treatment with imiquimod, follows with Dr Gil Chronic alcohol use History of smoking Nicotine dependence, chewing tobacco, with other nicotine-induced disorders COPD (chronic obstructive pulmonary disease) Compression fx, lumbar spine 07/2022 L1, L3, L4 Lumbar disc disease with radiculopathy Amputated toe of left foot discharged from wound care 07/05/22, follows with Dr Brunner PAC (premature atrial contraction) Chronic hyponatremia Severe peripheral arterial disease Malignant neoplasm of glottis Claudication HTN (hypertension) History of nonmelanoma skin cancer Surgical History Status post kyphoplasty (08/06/22) L1, L3, L4 S/P right coronary artery (RCA) stent placement (08/30/22) S/P peripheral artery angioplasty with stent placement 12/2021 Left common/External Iliac Artery with 80% stenosis treated with AB ARMADA [id number] [id number]. 8.0 x 19 mm Omnilink stent was placed. Left Proximal Superficial Femoral Artery with 80-90 % stenosis treated with AB ARMADA 35 OTW [id number]. 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 History of hip surgery right hip fracture repair Family History Other No pertinent family history Social History Smoking and tobacco/nicotine status: former use of tobacco/nicotine Alcohol intake: current Alcohol type: hard liquor Substance/Drug Use: current Substance/Drug use frequency: Special occassions/opportunity only Lives independently: Yes Household members: none Housing: House Vitals/I&O/Wt Last Vital Signs Temp 98.3 F 03/04/25 15:40 Pulse 76 03/04/25 19:06 Resp 16 03/04/25 19:06 BP 126/97 03/04/25 19:06 Pulse Ox 93 03/04/25 19:06 O2 Del Method Nasal Cannula 03/04/25 19:06 O2 Flow Rate 2 03/04/25 19:06 03/04/25 03/04/25 03/04/25 06:59 14:59 22:59 Intake Total 579.167 / 579.167 Balance 579.167 / 579.167 Weight last 48 hrs Weight 77.111 kg Physical Exam Narrative: Patient is in bed debilitated but still gets around at home patient lives by himself at home with help from the cousin who is a caregiver HEENT normocephalic atraumatic neck neck is supple cardiovascular heart rate is regular lungs are pretty much clear abdomen soft nontender nondistended unremarkable extremities are intact but with weak extremities at 3+/5 to 4+, no edema has good pulses neurology has no focality lab studies lab studies reviewed and noted Data 03/04/25 16:15 03/04/25 16:15 A&P Assessment and plan 1. Alcohol abuse: 2. Weakness: 3. Hypokalemia: 4. Hyponatremia: 5. Multiple skin tears: 6. Multiple falls: Plan: #1 EtOH abuse - EtOH level at 11 patient at risk for impending DTs 40 hide patient show daily drinker - Last drank was just yesterday and heavily but will not quantify -Patient on CIWA protocol with gentle hydration - Follow up and monitor for impending DTs - Patient is ED hold because of no bed and stepdown unit #2 Beer protonemia with significant hyponatremia -Patient history significant for volume contraction secondary to alcoholism -Continue gentle hydration of normal saline for serum level of sodium 124 -Monitor serum sodium not exceed an increased for more than 6 mEq in 24 hours - #3 Hypochloremic due to severe dehydration -Chloride at 79 significant for volume contraction -Again continue normal saline at 100/h -Follow up chemistry for interval change #4 Lower extremity weakness with multiple falls which is compounded with excessive drinking -Patient need PT OT to optimize ambulatory dysfunction -Patient needs strength in the lower extremities to prevent falls or acute falls to a minimum -Discharge planning is to rehab to help with weakness myopathy and minimize falls #4 Hypokalemia -Potassium of 2.4 replaced in the emergency room -Follow lab studies and optimize accordingly #5 GI and DVT prophylaxis in place PDMP PDMP Reviewed: Last Reviewed 03/05/25 01:40 by Beth Brown MD Attestations Medical Necessity Statement*: Patient with active drinking in eval of impending DTs with severe electrolyte imbalance with hypokalemia at 2.4 and hyponatremia of 124 will need at least 2 midnights to further optimize care in this patient patient to be admitted to stepdown unit Coding Level of Care Code 80448 Diagnoses Alcohol abuse F10.10 Weakness R53.1 Hypokalemia E87.6 Hyponatremia E87.1 Multiple skin tears T14.8XXA Multiple falls R29.6 Time Spent (min) 60
[2025-03-04] MEDS: heparin 5,000 unit/mL INJ 1 mL 5000 UNIT SUBCUT (21:16)
[2025-03-04] MEDS: pantoprazole 40 mg SDV IVP (21:16)
[2025-03-04] MEDS: thiamine 100 mg/mL 2mL SDV IM (21:16)
[2025-03-04 21:25] VITALS: BP 111/68; PULSE 75; RESP 16; O2SAT 93
[2025-03-05] VITALS (8 sets, daily range): BP systolic 92–112; BP diastolic 47–69; PULSE 62–77; RESP 16–18; TEMP 36.1–36.6; O2SAT 91–94; BMI 25.1
[2025-03-05 04:48] LABS: Hematocrit 26.9 % (37-53); Hemoglobin 8.70 g/dL (11.27-16.99); Mean Corpuscular HGB Conc 32.3 g/dL (30-55); Mean Corpuscular Hemoglobin 27.6 pg (27-33); Mean Corpuscular Volume 85.4 fl (82-101); Nucleated Red Blood Cells % 0 %; Platelet Count 437 10^3/cmm (157-399); Red Blood Count 3.15 10^6/uL (3.85-5.65); White Blood Count 10.01 10^3/uL (3.29-11.43)
[2025-03-05 04:49] LABS: Alanine Aminotransferase 13 U/L (0-41); Albumin Level 2.7 g/dL (3.5-5.2); Alkaline Phosphatase 140 U/L (40-130); Anion Gap 12.9 (5-19); Aspartate Amino Transferase 24 U/L (0-40); Blood Urea Nitrogen 18 mg/dL (8-23); Calcium 8.0 mg/dL (8.5-10.5); Carbon Dioxide 28 mmol/L (22-29); Chloride 90 mmol/L (98-107); Creatinine Clr Calc Pharmacy 53.6532; Globulin 3.1 g/dL (1.3-4.6); Glucose 92 mg/dL (65-115); Magnesium 2.1 mg/dL (1.7-2.3); Osmolality Calculated 268 mOsm/kg (285-295); Sodium 128 mmol/L (136-145); Total Protein 5.8 g/dL (6.6-8.7)
[2025-03-05] MEDS: multivitamin therapeutic Tablet 1 TAB PO (04:58)
[2025-03-05 05:02] LABS: Potassium 2.9 mmol/L (3.5-5.1)
[2025-03-05] MEDS: potassium chloride premix 100 ML 50 MEQ IV (05:56)
--- NOTE | 2025-03-05 06:07 | PC.NURSE ---
IV K+ rate reduced per pt request. PT states, you turn that damn potassium down. You better slow it down . Potassium rate reduced to 25mls/hr from 50mls/hr. Pt reports pain reduced and he is tolerating.
[2025-03-05] MEDS: heparin 5,000 unit/mL INJ 1 mL 5000 UNIT SUBCUT ×2 (08:05→19:40)
--- NOTE | 2025-03-05 11:18 | P.PN_ITS ---
Subjective 2 Subjective: Admitted overnight. Today morning being comfortable in bed. Denies any nausea, vomiting. Appearing. Hemodynamically stable. Seen in the ER awaiting bed for MedSurg. Vitals/I&O/Wt Last Vital Signs Temp 97.9 F 03/05/25 05:03 Pulse 69 03/05/25 11:03 Resp 18 03/05/25 08:00 BP 106/47 03/05/25 11:03 Pulse Ox 94 03/05/25 11:03 O2 Del Method Nasal Cannula 03/05/25 05:03 O2 Flow Rate 2 03/05/25 05:03 03/04/25 03/05/25 03/05/25 22:59 06:59 14:59 Intake Total 579.167 / 579.167 629.166 / 1208.333 91.667 / 91.667 Balance 579.167 / 579.167 629.166 / 1208.333 91.667 / 91.667 Weight last 48 hrs Weight 77.111 kg Physical Exam 2 Narrative: Patient is in bed debilitated but still gets around at home patient lives by himself at home with help from the cousin who is a caregiver HEENT normocephalic atraumatic neck neck is supple cardiovascular heart rate is regular lungs are pretty much clear abdomen soft nontender nondistended unremarkable extremities are intact but with weak extremities at 3+/5 to 4+, no edema has good pulses neurology has no focality lab studies lab studies reviewed and noted Data 03/05/25 04:26 03/05/25 04:26 A&P Assessment and plan 1. Alcohol abuse: 2. Weakness: 3. Hypokalemia: 4. Hyponatremia: 5. Multiple skin tears: 6. Multiple falls: 7. Prolonged QT interval: Monitor QTc. 8. Paroxysmal atrial fibrillation: Telemetry. Currently rate controlled. 9. S/P right coronary artery (RCA) stent placement: Denies any chest pain. Start on baby aspirin 81 mg daily. 10. Chronic systolic CHF (congestive heart failure): Watch for fluid overload. 11. HTN (hypertension): 12. Subclinical hypothyroidism: Last TSH more than 10. Repeat thyroid profile. Start on levothyroxine at 50 mcg daily as patient TSH is more than 10 and advanced age. Will need a repeat thyroid panel in 4 weeks. Plan: #1 EtOH abuse - EtOH level at 11 patient at risk for impending DTs 40 hide patient show daily drinker - Last drank was just yesterday and heavily but will not quantify -Patient on CIWA protocol with gentle hydration - Follow up and monitor for impending DTs - Patient is ED hold because of no bed and stepdown unit #2 Beer protonemia with significant hyponatremia -Patient history significant for volume contraction secondary to alcoholism -Continue gentle hydration of normal saline for serum level of sodium 124 -Monitor serum sodium not exceed an increased for more than 6 mEq in 24 hours - #3 Hypochloremic due to severe dehydration -Chloride at 79 significant for volume contraction -Again continue normal saline at 100/h -Follow up chemistry for interval change #4 Lower extremity weakness with multiple falls which is compounded with excessive drinking -Patient need PT OT to optimize ambulatory dysfunction -Patient needs strength in the lower extremities to prevent falls or acute falls to a minimum -Discharge planning is to rehab to help with weakness myopathy and minimize falls #4 Hypokalemia -Potassium of 2.4 replaced in the emergency room -Follow lab studies and optimize accordingly Plan for the day: Patient states last alcohol use was 3 to 4 days ago. Alcohol level appreciated on admission. Continue with CIWA protocol. Having recurrent falls. Most likely in setting of electrolyte abnormality along with alcohol myopathy. Cannot rule out in setting of thiamine deficiency. Start on NS with 40 of potassium at 50 cc/h. Replace 40 mg of oral potassium 2 doses 1 hour apart. IV magnesium 2 g. Check urine lites. Repeat BMP in afternoon. Monitor BMP and magnesium daily. Continue with oral thiamine. Start on IV thiamine 500 mg daily for 3 days. Clear liquid diet for now. PT and speech evaluation. Advance diet as per speech evaluation. Protonix daily. Heparin 5000 Q12 hourly for DVT prophylaxis Discharge plan: Patient's family requesting to be transition to SNF. He is agreeable. Case management alerted. PDMP PDMP Reviewed: Not Reviewed Attestations 2 Medical Necessity Statement*: Requires further hospitalization for management of weakness in setting of significant electrolyte abnormality in a patient with alcohol abuse while safe discharge planning is sought Diagnoses Alcohol abuse F10.10 Weakness R53.1 Hypokalemia E87.6 Hyponatremia E87.1 Multiple skin tears T14.8XXA Multiple falls R29.6 Prolonged QT interval R94.31 Paroxysmal atrial fibrillation I48.0 S/P right coronary artery (RCA) stent placement Z95.5 Chronic systolic CHF (congestive heart failure) I50.22 HTN (hypertension) I10 Subclinical hypothyroidism E03.8
[2025-03-05 12:36] LABS: Free T4 Free Thyroxine 1.32 ng/dL (0.82-1.77); Thyroid Stimulating Hormone 9.85 uIU/mL (0.27-4.20)
[2025-03-05] MEDS: thiamine 100 mg/mL 2mL SDV 500 MG IVP (12:51)
[2025-03-05] MEDS: magnesium sulfate premix 2 GM/50 ML PIGGYBACK IV (12:51)
[2025-03-05] MEDS: sodium chlor 0.9% + KCl 40 mEq 40 MEQ/1,000 ML BAG 50 MEQ IV (12:53)
[2025-03-05 13:07] LABS: Vitamin B12 937 pg/mL (232-1245)
[2025-03-05 15:50] LABS: Anion Gap 16.0 (5-19); Blood Urea Nitrogen 15 mg/dL (8-23); Calcium 8.1 mg/dL (8.5-10.5); Carbon Dioxide 26 mmol/L (22-29); Chloride 90 mmol/L (98-107); Creatinine Clr Calc Pharmacy 59.0185; Glucose 101 mg/dL (65-115); Osmolality Calculated 267 mOsm/kg (285-295); Potassium 4.0 mmol/L (3.5-5.1); Sodium 128 mmol/L (136-145)
[2025-03-05] MEDS: pantoprazole 40 mg SDV IVP (19:40)
[2025-03-06] VITALS (9 sets, daily range): BP systolic 102–127; BP diastolic 60–65; PULSE 67–90; RESP 16–22; TEMP 36.3–37.1; O2SAT 90–99
[2025-03-06 04:54] LABS: Hematocrit 26.4 % (37-53); Hemoglobin 8.10 g/dL (11.27-16.99); Mean Corpuscular HGB Conc 30.7 g/dL (30-55); Mean Corpuscular Hemoglobin 27.2 pg (27-33); Mean Corpuscular Volume 88.6 fl (82-101); Nucleated Red Blood Cells % 0.2 %; Platelet Count 427 10^3/cmm (157-399); Red Blood Count 2.98 10^6/uL (3.85-5.65); White Blood Count 11.95 10^3/uL (3.29-11.43)
[2025-03-06] MEDS: multivitamin therapeutic Tablet 1 TAB PO (04:59)
[2025-03-06] MEDS: thiamine 100 mg/mL 2mL SDV 500 MG IVP (05:00)
[2025-03-06 05:19] LABS: Alanine Aminotransferase 13 U/L (0-41); Albumin Level 2.8 g/dL (3.5-5.2); Alkaline Phosphatase 143 U/L (40-130); Anion Gap 12.4 (5-19); Aspartate Amino Transferase 26 U/L (0-40); Blood Urea Nitrogen 10 mg/dL (8-23); Calcium 8.0 mg/dL (8.5-10.5); Carbon Dioxide 24 mmol/L (22-29); Chloride 96 mmol/L (98-107); Creatinine Clr Calc Pharmacy 65.5762; Globulin 2.9 g/dL (1.3-4.6); Glucose 122 mg/dL (65-115); Osmolality Calculated 266 mOsm/kg (285-295); Potassium 4.4 mmol/L (3.5-5.1); Sodium 128 mmol/L (136-145); Total Protein 5.7 g/dL (6.6-8.7)
[2025-03-06 05:20] LABS: Magnesium 2.2 mg/dL (1.7-2.3)
[2025-03-06] MEDS: heparin 5,000 unit/mL INJ 1 mL 5000 UNIT SUBCUT ×2 (08:59→20:42)
--- NOTE | 2025-03-06 12:12 | P.PN_ITS ---
Subjective 2 Subjective: He did not have any acute overnight events. Sodium is stable at 128. His phosphorus is low at 2.0 today and was repleted. He was a bit lethargic today but was fully oriented. He is waiting for placement. Vitals/I&O/Wt Last Vital Signs Temp 97.4 F L 03/06/25 11:39 Pulse 67 03/06/25 11:39 Resp 18 03/06/25 11:39 BP 114/62 03/06/25 11:39 Pulse Ox 99 03/06/25 11:39 O2 Del Method Room Air 03/06/25 11:39 O2 Flow Rate 2 03/06/25 03:55 Weight last 48 hrs Weight 76.657 kg Weight 77.111 kg Weight 77.111 kg Physical Exam 2 Const: COMMON NORMALS: no acute distress and patient oriented x3 GENERAL APPEARANCE: cooperative ORIENTATION/CONSCIOUSNESS: Yes awake OTHER: Lethargic HENMT: COMMON NORMALS: normocephalic, atraumatic and oropharynx normal HEAD & SCALP: normocephalic and atraumatic Eye: COMMON NORMALS: Equal, round and reactive pupils present and EOMs intact bilaterally PUPIL: Yes Equal, round and reactive pupils present Neck/C-Spine: COMMON NORMALS: supple and no JVD Resp: COMMON NORMALS: normal respiratory effort and clear to auscultation bilaterally AUSCULTATION: clear to auscultation bilaterally Cardio: COMMON NORMALS: no JVD, regular rhythm, S1 normal heart sound present, S2 normal heart sound present and No murmurs present (Cardio) RHYTHM: regular rhythm HEART SOUNDS: S1 normal heart sound present and S2 normal heart sound present GI: COMMON NORMALS: Normal to inspection, nondistended, normoactive bowel sounds present, Soft to palpation and non-tender PALPATION: Yes Soft to palpation : COMMON NORMALS: Yes no CVA tenderness BLADDER/KIDNEY EXAM: Yes no CVA tenderness Back/Pelvis: COMMON NORMALS: no CVA tenderness Extremity: COMMON NORMALS: no joint enlargement and no pedal edema Neuro: COMMON NORMALS: patient oriented x3, moves all extremities and no focal motor deficits Psych: COMMON NORMALS: Normal thought process present and denies hallucinations THOUGHT PROCESS: Normal thought process present Skin: COMMON NORMALS: no rashes or lesions noted GENERAL SKIN EXAM: no rashes or lesions noted Data 03/06/25 04:44 03/06/25 04:44 A&P Assessment and plan 1. Alcohol abuse: 2. Weakness: 3. Hypokalemia: 4. Hyponatremia: 5. Multiple skin tears: 6. Multiple falls: 7. Prolonged QT interval: Monitor QTc. 8. Paroxysmal atrial fibrillation: Telemetry. Currently rate controlled. 9. S/P right coronary artery (RCA) stent placement: Denies any chest pain. Start on baby aspirin 81 mg daily. 10. Chronic systolic CHF (congestive heart failure): Watch for fluid overload. 11. HTN (hypertension): 12. Subclinical hypothyroidism: Last TSH more than 10. Repeat thyroid profile. Start on levothyroxine at 50 mcg daily as patient TSH is more than 10 and advanced age. Will need a repeat thyroid panel in 4 weeks. Plan: Alcohol use disorder ? Ethanol level was 11 on admission - Not in withdrawal at this time ?Continue thiamine, multivitamin, folic acid Beer protonemia with significant hyponatremia -Patient history significant for volume contraction secondary to alcoholism - Potassium has been stable at 128 for the past 2 days ? Will start sodium chloride tabs 1 g twice daily Hypochloremic due to severe dehydration - This is improved, monitor Physical deconditioning with generalized weakness ? He has lower extremity weakness with multiple falls which is compounded with excessive drinking - Continue PT OT -Patient needs strength training in the lower extremities to prevent falls or acute falls to a minimum - Pending placement to rehab Hypophosphatemia ? Repleting Hypokalemia, resolved PDMP PDMP Reviewed: Not Reviewed Attestations 2 Medical Necessity Statement*: Patient requires continued hospitalization for PT and OT pending SNF placement. Also getting sodium chloride tabs for his hyponatremia. Treating his hypophosphatemia. Coding Level of Care Code Acute Code for Chg Fwd Diagnoses Alcohol abuse F10.10 Weakness R53.1 Hypokalemia E87.6 Hyponatremia E87.1 Multiple skin tears T14.8XXA Multiple falls R29.6 Prolonged QT interval R94.31 Paroxysmal atrial fibrillation I48.0 S/P right coronary artery (RCA) stent placement Z95.5 Chronic systolic CHF (congestive heart failure) I50.22 HTN (hypertension) I10 Subclinical hypothyroidism E03.8
--- NOTE | 2025-03-06 17:58 | PC.SLP ---
attemped learning consultant treatment-pt stated he did not want therapy stating he wanted to rest
[2025-03-06] MEDS: pantoprazole 40 mg SDV IVP (20:42)
[2025-03-07] VITALS (12 sets, daily range): BP systolic 91–124; BP diastolic 50–78; PULSE 57–86; RESP 16–18; TEMP 36.6–37.2; O2SAT 90–97
[2025-03-07] MEDS: thiamine 100 mg/mL 2mL SDV 500 MG IVP (04:59)
[2025-03-07] MEDS: multivitamin therapeutic Tablet 1 TAB PO (04:59)
[2025-03-07 05:12] LABS: Hematocrit 25.0 % (37-53); Hemoglobin 7.60 g/dL (11.27-16.99); Mean Corpuscular HGB Conc 30.4 g/dL (30-55); Mean Corpuscular Hemoglobin 26.8 pg (27-33); Mean Corpuscular Volume 88.0 fl (82-101); Nucleated Red Blood Cells % 0 %; Platelet Count 442 10^3/cmm (157-399); Red Blood Count 2.84 10^6/uL (3.85-5.65); White Blood Count 10.61 10^3/uL (3.29-11.43)
[2025-03-07 05:32] LABS: Albumin Level 2.6 g/dL (3.5-5.2); Anion Gap 12.5 (5-19); Blood Urea Nitrogen 10 mg/dL (8-23); Calcium 7.9 mg/dL (8.5-10.5); Carbon Dioxide 24 mmol/L (22-29); Chloride 102 mmol/L (98-107); Creatinine Clr Calc Pharmacy 58.8723; Glucose 88 mg/dL (65-115); Potassium 4.5 mmol/L (3.5-5.1); Sodium 134 mmol/L (136-145)
[2025-03-07 05:43] LABS: Magnesium 2.1 mg/dL (1.7-2.3)
[2025-03-07] MEDS: heparin 5,000 unit/mL INJ 1 mL 5000 UNIT SUBCUT (08:54)
[2025-03-07 09:05] LABS: Iron 13 ug/dL (59-158); Total Iron Binding Capacity 223 mcg/dl; Unsaturated Iron Binding 210 ug/dL (112-347)
--- NOTE | 2025-03-07 11:42 | P.PN_ITS ---
Subjective 2 Subjective: He was sleeping initially but became more alert during my evaluation. He has been requesting his medications crushed. He said that he is never able to swallow pills whole. He requested his diet to be changed. He denies any difficulty swallowing or choking. His hemoglobin was 7.6 this morning, 9.10 on admission. He is on aspirin. He denies any melena or hematochezia. He was started on NaCl tabs yesterday and his sodium has improved to 134. He is still waiting for SNF placement. Medications: Reviewed: Yes Vitals/I&O/Wt Last Vital Signs Temp 98.2 F 03/07/25 08:10 Pulse 71 03/07/25 08:10 Resp 17 03/07/25 08:10 BP 106/62 03/07/25 08:10 Pulse Ox 97 03/07/25 08:10 O2 Del Method Nasal Cannula 03/07/25 08:10 O2 Flow Rate 2 03/07/25 00:00 03/06/25 03/07/25 03/07/25 22:59 06:59 14:59 Intake Total 1000 / 1120 240 / 240 Output Total 200 / 200 Balance 1000 / 1120 40 / 40 Weight last 48 hrs Weight 76.022 kg Weight 76.657 kg Physical Exam 2 Const: COMMON NORMALS: no acute distress and patient oriented x3 GENERAL APPEARANCE: cooperative ORIENTATION/CONSCIOUSNESS: Yes awake OTHER: Lethargic HENMT: COMMON NORMALS: normocephalic, atraumatic and oropharynx normal HEAD & SCALP: normocephalic and atraumatic Eye: COMMON NORMALS: Equal, round and reactive pupils present and EOMs intact bilaterally PUPIL: Yes Equal, round and reactive pupils present Neck/C-Spine: COMMON NORMALS: supple and no JVD Resp: COMMON NORMALS: normal respiratory effort and clear to auscultation bilaterally AUSCULTATION: clear to auscultation bilaterally Cardio: COMMON NORMALS: no JVD, regular rhythm, S1 normal heart sound present, S2 normal heart sound present and No murmurs present (Cardio) RHYTHM: regular rhythm HEART SOUNDS: S1 normal heart sound present and S2 normal heart sound present GI: COMMON NORMALS: Normal to inspection, nondistended, normoactive bowel sounds present, Soft to palpation and non-tender PALPATION: Yes Soft to palpation : COMMON NORMALS: Yes no CVA tenderness BLADDER/KIDNEY EXAM: Yes no CVA tenderness Back/Pelvis: COMMON NORMALS: no CVA tenderness Extremity: COMMON NORMALS: no joint enlargement and no pedal edema Neuro: COMMON NORMALS: patient oriented x3, moves all extremities and no focal motor deficits Psych: COMMON NORMALS: Normal thought process present and denies hallucinations THOUGHT PROCESS: Normal thought process present Skin: COMMON NORMALS: no rashes or lesions noted GENERAL SKIN EXAM: no rashes or lesions noted Data 03/07/25 04:55 03/07/25 04:55 A&P Assessment and plan 1. Alcohol abuse: 2. Weakness: 3. Hyponatremia: 4. Hypokalemia: Resolved 5. Multiple falls: 6. Multiple skin tears: 7. Paroxysmal atrial fibrillation: Telemetry. Currently rate controlled. 8. S/P right coronary artery (RCA) stent placement: Denies any chest pain. Start on baby aspirin 81 mg daily. 9. Chronic systolic CHF (congestive heart failure): Watch for fluid overload. 10. Primary hypertension: 11. Subclinical hypothyroidism: Last TSH more than 10. Repeat thyroid profile. Start on levothyroxine at 50 mcg daily as patient TSH is more than 10 and advanced age. Will need a repeat thyroid panel in 4 weeks. Plan: Chronic anemia ? Hemoglobin down to 7.6 today ? Has history of GI bleed ? 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 He was referred to colorectal surgery and declined surgical intervention ? Hemodynamically stable at this time ? Will transfuse 1 units of PRBCs ? Monitor hemoglobin Alcohol use disorder ? Ethanol level was 11 on admission - Not in withdrawal at this time ?Continue thiamine, multivitamin, folic acid Beer protonemia with significant hyponatremia -Patient history significant for volume contraction secondary to alcoholism - Started NaCl tabs yesterday and sodium has improved to 134 ? Continue to monitor Hypochloremic due to severe dehydration - Resolved Physical deconditioning with generalized weakness ? He has lower extremity weakness with multiple falls which is compounded with excessive drinking - Continue PT OT -Patient needs strength training in the lower extremities to prevent falls or acute falls to a minimum - Pending placement to SNF Paroxysmal atrial fibrillation ? Heart rate has been normal off of rate control meds ? Not on chronic anticoagulation because of history of GI bleed Chronic HFpEF ? LVEF has recovered and was 50 to 55% on 11/27/2024 ? Monitor I's and O's and daily weights CAD, PAD ? Status post RCA stent in August 2024 ? Status post angioplasty with stents of left common/external iliac artery and left proximal SFA ? On aspirin and atorvastatin Hypertension ? Also has history of hypotension and was previously on midodrine ? BP has been stable Subclinical hypothyroidism ? TSH was 15.3 in October, 9.85 on admission ? Started on levothyroxine 25 mcg daily this admission ? He will need to start repeat TFTs in a few weeks Hypophosphatemia ? Repleting Hypokalemia, resolved PDMP PDMP Reviewed: Not Reviewed Attestations 2 Medical Necessity Statement*: He requires continued hospitalization. Pending SNF placement. Will transfuse blood today. Coding Level of Care Code Acute Code for Chg Fwd Diagnoses Alcohol abuse F10.10 Weakness R53.1 Hyponatremia E87.1 Hypokalemia E87.6 Multiple falls R29.6 Multiple skin tears T14.8XXA Paroxysmal atrial fibrillation I48.0 S/P right coronary artery (RCA) stent placement Z95.5 Chronic systolic CHF (congestive heart failure) I50.22 Primary hypertension I10 Hypertension type: primary hypertension Subclinical hypothyroidism E03.8
--- NOTE | 2025-03-07 15:17 | PC.OT ---
OT TREATMENT ATTEMPTED IN P.M. PATIENT SLEEPING SOUNDLY; SNORING. DOES NOT AWAKEN TO NAME
[2025-03-07] MEDS: iron sucrose 200 MG in sodium chloride 0.9% (100 ml) 100 ML 220 MG IV (15:38)
[2025-03-08] VITALS: BP 108/63; PULSE 79; RESP 18; TEMP 37.1; O2SAT 95
[2025-03-08 04:47] LABS: Hematocrit 29.0 % (37-53); Hemoglobin 9.10 g/dL (11.27-16.99); Mean Corpuscular HGB Conc 31.4 g/dL (30-55); Mean Corpuscular Hemoglobin 27.3 pg (27-33); Mean Corpuscular Volume 87.1 fl (82-101); Nucleated Red Blood Cells % 0 %; Platelet Count 432 10^3/cmm (157-399); Red Blood Count 3.33 10^6/uL (3.85-5.65); White Blood Count 10.12 10^3/uL (3.29-11.43)
[2025-03-08] MEDS: multivitamin therapeutic Tablet 1 TAB PO (05:00)
[2025-03-08] MEDS: thiamine 100 mg/mL 2mL SDV 500 MG IVP (05:05)
[2025-03-08 05:10] LABS: Albumin Level 2.6 g/dL (3.5-5.2); Anion Gap 13.4 (5-19); Blood Urea Nitrogen 9 mg/dL (8-23); Calcium 8.1 mg/dL (8.5-10.5); Carbon Dioxide 23 mmol/L (22-29); Chloride 102 mmol/L (98-107); Creatinine Clr Calc Pharmacy 53.3342; Glucose 97 mg/dL (65-115); Magnesium 2.0 mg/dL (1.7-2.3); Potassium 4.4 mmol/L (3.5-5.1); Sodium 134 mmol/L (136-145)
[2025-03-08 06:00] VITALS: BP 122/67; PULSE 62; PULSE 79; RESP 16; TEMP 37; O2SAT 96
[2025-03-08 07:09] VITALS: BP 103/56; PULSE 78; RESP 17; TEMP 36.9; O2SAT 92
[2025-03-08] MEDS: heparin 5,000 unit/mL INJ 1 mL 5000 UNIT SUBCUT (08:18)
[2025-03-08] MEDS: ferrous sulfate EC 325 mg Tablet PO (08:18)
--- NOTE | 2025-03-08 08:24 | PC.SOCIAL ---
*IMM Update* Called Facility, gave copy of IMM to patient in room. Initialled and dated, placed in chart.
--- NOTE | 2025-03-08 10:58 | PM.DCS ---
Discharge Providers Date of Admission: 03/04/25 17:48 Date of Discharge: March 08, 2025 Attending Provider at Admission: Alexander Patton MD Attending Provider at Discharge: Lynette Martinez MD Consults: None Diagnoses at Discharge Discharge Diagnosis 1. Alcohol abuse: 2. Weakness: Details from hospital stay: Bilateral lower extremity weakness. Debility with ambulatory dysfunction. 3. Hyponatremia: 4. Hypokalemia: 5. Multiple falls: 6. Paroxysmal atrial fibrillation: 7. S/P right coronary artery (RCA) stent placement: 8. Chronic systolic CHF (congestive heart failure): Details from hospital stay: LVEF had recovered to 50 to 55% in October 2024 9. Primary hypertension: 10. Subclinical hypothyroidism: 11. Iron (Fe) deficiency anemia: 12. Tubulovillous adenoma of colon: 13. Multiple skin tears: Reason for Visit Reason for Visit: fall - ETOH Brief History: This is a 84-year-old male with alcohol use disorder, paroxysmal atrial fibrillation, COPD, hypertension, CAD, history of PCI with stent, PAD, chronic HFrEF (45%), BPH, GERD, chronic hyponatremia, and history of skin cancer who presented with bilateral lower extremity weakness and frequent falls. He was still drinking heavily prior to admission. His serum sodium was 124 mmol/L on admission. Hospital Course Hospital Course He has mild chronic hyponatremia. His serum sodium is usually in the low to mid 130s. His hyponatremia is likely due to to his chronic alcohol use. He has been started on sodium chloride tabs and his sodium has improved. He will repeat labs to monitor. He was discharged to SNF for rehab due to his physical debility and recurrent falls. His TSH has been elevated for quite a while. He was not on levothyroxine prior to admission. This was started and he will need repeat TFTs in 4 to 6 weeks. He has iron deficiency anemia. His hemoglobin had down trended to 7.6. He received 1 unit of PRBCs on 03/07/2025. He is on aspirin for CAD and PAD. He had a RCA stent in August 2022 and angioplasty with stents placement of the left common/external iliac artery and left proximal SFA in December 2021. He has a known history of GI bleed. He had a colonoscopy in April 2024 which showed an obstructive mass in the mid ascending colon. This was biopsied and was found to be a tubulovillous adenoma. General surgery recommended referral to colorectal surgery but patient declined at that time. He is now willing to pursue this and will need outpatient referral to general surgery after discharge from SNF. Physical Exam Const: COMMON NORMALS: no acute distress and patient oriented x3 GENERAL APPEARANCE: cooperative ORIENTATION/CONSCIOUSNESS: Yes awake OTHER: Lethargic HENMT: COMMON NORMALS: normocephalic, atraumatic and oropharynx normal HEAD & SCALP: normocephalic and atraumatic Eye: COMMON NORMALS: Equal, round and reactive pupils present and EOMs intact bilaterally PUPIL: Yes Equal, round and reactive pupils present Neck/C-Spine: COMMON NORMALS: supple and no JVD Resp: COMMON NORMALS: normal respiratory effort and clear to auscultation bilaterally AUSCULTATION: clear to auscultation bilaterally Cardio: COMMON NORMALS: no JVD, regular rhythm, S1 normal heart sound present, S2 normal heart sound present and No murmurs present (Cardio) RHYTHM: regular rhythm HEART SOUNDS: S1 normal heart sound present and S2 normal heart sound present GI: COMMON NORMALS: Normal to inspection, nondistended, normoactive bowel sounds present, Soft to palpation and non-tender PALPATION: Yes Soft to palpation : COMMON NORMALS: Yes no CVA tenderness BLADDER/KIDNEY EXAM: Yes no CVA tenderness Back/Pelvis: COMMON NORMALS: no CVA tenderness Extremity: COMMON NORMALS: no joint enlargement and no pedal edema Neuro: COMMON NORMALS: patient oriented x3, moves all extremities and no focal motor deficits Psych: COMMON NORMALS: Normal thought process present and denies hallucinations THOUGHT PROCESS: Normal thought process present Skin: COMMON NORMALS: no rashes or lesions noted GENERAL SKIN EXAM: no rashes or lesions noted Discharge Data Studies Completed and Pending Completed Studies During Hospitalization Category Date Time Status CT abdomen pelvis wo con [id number] Stat Cat Scan 03/04/25 15:[address] head wo con* [id number] Stat Cat Scan 03/04/25 15:40 Completed Pending at discharge Category Date Time Status Occult Blood Stool [Immunochemical Fecal OCB] Routine Lab 03/07/25 07:39 Uncollected Renal Function Panel AM LABS Lab 03/09/25 04:00 Ordered Urinalysis Routine Lab 03/05/25 11:22 Ordered Urine Lytes [Urine Random Lytes] Stat Lab 03/05/25 11:22 Ordered Radiology Impressions Abdomen/Pelvis CT 03/04/25 15:40 IMPRESSION: 1. No acute findings. 2. Cholelithiasis 3. Hepatic cirrhosis 4. Osteoporosis with multiple old compression fractures Head CT 03/04/25 15:40 IMPRESSION: No acute intracranial abnormality. Senescent changes. Laboratory Results WBC 10.12 10^3/uL (3.29-11.43) 03/08/25 04:19 RBC 3.33 10^6/uL (3.85-5.65) L 03/08/25 04:19 Hgb 9.10 g/dL (11.27-16.99) L 03/08/25 04:19 Hct 29.0 % (37-53) L 03/08/25 04:19 MCV 87.1 fl (82-101) 03/08/25 04:19 MCH 27.3 pg (27-33) 03/08/25 04:19 MCHC 31.4 g/dL (30-55) 03/08/25 04:19 RDW 18.7 % (12.1-15.1) H 03/08/25 04:19 Plt Count 432 10^3/cmm (157-399) H 03/08/25 04:19 MPV 9.1 fL (7.4-10.4) 03/08/25 04:19 Neut % (Auto) 66.5 % 03/08/25 04:19 Lymph % (Auto) 15.0 % 03/08/25 04:19 [place] % (Auto) 9.6 % 03/08/25 04:19 Eos % (Auto) 6.8 % 03/08/25 04:19 Baso % (Auto) 1.1 % 03/08/25 04:19 Neut # (Auto) 6.73 10^3/uL (1.8-7.7) 03/08/25 04:19 Lymph # (Auto) 1.5 10^3/uL (0.8-4.8) 03/08/25 04:19 [place] # (Auto) 1.0 10^3/uL (0.2-0.9) H 03/08/25 04:19 Eos # (Auto) 0.7 10^3/uL (0.0-0.8) 03/08/25 04:19 Baso # (Auto) 0.1 10^3/uL (0.0-0.1) 03/08/25 04:19 Nucleated RBC % (auto) 0 % 03/08/25 04:19 Nucleated RBCs # 0.0 /100WBC 03/08/25 04:19 Sodium 134 mmol/L (136-145) L 03/08/25 04:19 Potassium 4.4 mmol/L (3.5-5.1) 03/08/25 04:19 Chloride 102 mmol/L (98-107) 03/08/25 04:19 Carbon Dioxide 23 mmol/L (22-29) 03/08/25 04:19 Anion Gap 13.4 (5-19) 03/08/25 04:19 BUN 9 mg/dL (8-23) 03/08/25 04:19 Creatinine 1.1 mg/dL (0.7-1.2) 03/08/25 04:19 GFR Calculation Not Reportable 03/08/25 04:19 Glucose 97 mg/dL (65-115) 03/08/25 04:19 Calculated Osmolality 266 mOsm/kg (285-295) L 03/06/25 04:44 Calcium 8.1 mg/dL (8.5-10.5) L 03/08/25 04:19 Phosphorus 3.2 mg/dL (2.5-4.5) 03/08/25 04:19 Magnesium 2.0 mg/dL (1.7-2.3) 03/08/25 04:19 Iron 13 ug/dL (59-158) L 03/07/25 04:55 TIBC 223 mcg/dl 03/07/25 04:55 % Saturation 5.8 % (20-50) L 03/07/25 04:55 Unsat Iron Binding 210 ug/dL (112-347) 03/07/25 04:55 Total Bilirubin 0.6 mg/dL (0.15-1.2) 03/06/25 04:44 AST 26 U/L (0-40) 03/06/25 04:44 ALT 13 U/L (0-41) 03/06/25 04:44 Alkaline Phosphatase 143 U/L (40-130) H 03/06/25 04:44 Total Protein 5.7 g/dL (6.6-8.7) L 03/06/25 04:44 Albumin 2.6 g/dL (3.5-5.2) L 03/08/25 04:19 Globulin 2.9 g/dL (1.3-4.6) 03/06/25 04:44 Vitamin B12 937 pg/mL (232-1245) 03/05/25 04:26 Folate > 20.0 ng/mL (4.5-32.2) 03/06/25 04:44 TSH 9.85 uIU/mL (0.27-4.20) H 03/05/25 04:26 Free T4 1.32 ng/dL (0.82-1.77) 03/05/25 04:26 Ethyl Alcohol 11 mg/dL (0-10) H 03/04/25 16:15 Blood Type O Positive 03/07/25 14:50 Rho(D) Type Rh positive 03/07/25 14:50 Antibody Screen Negative 03/07/25 14:50 Crossmatch See Detail 03/07/25 14:50 Vitals Last Vital Signs Temp 98.4 F 03/08/25 07:09 Pulse 78 03/08/25 07:09 Resp 17 03/08/25 07:09 BP 103/56 03/08/25 07:09 Pulse Ox 92 03/08/25 07:09 O2 Del Method Nasal Cannula 03/08/25 07:09 O2 Flow Rate 2 03/08/25 00:00 Discharge Plan Discharge Patient Disposition: Xfer SNF Condition: Stable Prescriptions: New aspirin 81 mg Tablet,Delayed Release (Dr/Ec) 81 mg PO DAILY Qty: 30 0RF levothyroxine 25 mcg Tablet 25 mcg PO QAM Qty: 30 0RF docusate sodium 100 mg Capsule 100 mg PO BID Qty: 60 0RF folic acid 1 mg Tablet 1 mg PO DAILY Qty: 30 0RF ferrous sulfate 325 mg (65 mg iron) Tablet,Delayed Release (Dr/Ec) 325 mg PO BREAKFAST Qty: 30 0RF sodium chloride 1,000 mg Tablet,Soluble 1,000 mg PO BID Qty: 8 0RF thiamine mononitrate (vit B1) [Vitamin B-1 (mononitrate)] 100 mg Tablet 100 mg PO DAILY Qty: 30 0RF Continued (DME) [id number] orthopedic shoes See Rx Instructions .Route .MEDSUPPLY Qty: 1 0RF Rx Instructions: As directed to the kelli lópez pantoprazole [Protonix] 40 mg tablet,delayed release (DR/EC) 40 mg PO DAILY tamsulosin 0.4 mg Capsule 0.4 mg PO QPM Qty: 30 0RF albuterol sulfate 2.5 mg /3 mL (0.083 %) solution for nebulization 2.5 mg inhalation Q6H PRN (Reason: Shortness Of Breath Or Wheezing) furosemide 40 mg tablet 20 mg PO DAILY PRN (Reason: prn) 30 Days Qty: 0 0RF atorvastatin 80 mg tablet 40 mg PO QAM Discontinued cephalexin 500 mg capsule 500 mg PO TID Discharge Order = DC NOW: Discharge Order (Routine); Ordered 03/08/25 Ordered By: Lynette Martinez Other Ambulatory Orders: Basic Metabolic Panel (Routine) Timeframe: 1 Week Facility: [facility] - Location: Lab - Main Lab Ordered By: Lynette Martinez Complete Blood Count w/Auto (Routine) Timeframe: 1 Week Location: Determined by Patient Ordered By: Lynette Martinez Thyroid Stimulating Hormone (Routine) Timeframe: 1 Month Facility: [facility] - Location: Lab - Main Lab Ordered By: Lynette Martinez Discharge Diet: Regular Discharge Activity: Increase activity as tolerated and As per PT/OT instructions Patient Instructions: Opioid Safety, Patient Portal & Brandy Instructions Activity Restrictions/Additional Instructions: clean wound to R forearm daily and apply telfa with kerlex. Discharge Attestations Time Spent in Discharge Care*: greater than 30 min Status at Discharge: Cognitive status at discharge: cognitively intact, Behavioral status at discharge: cooperative, Quality Metrics Clinical Quality Measures [ No reported AMI, CVA or VTE this stay] Coding Level of Care Code 67810 Diagnoses Alcohol abuse F10.10 Weakness R53.1 Hyponatremia E87.1 Hypokalemia E87.6 Multiple falls R29.6 Paroxysmal atrial fibrillation I48.0 S/P right coronary artery (RCA) stent placement Z95.5 Chronic systolic CHF (congestive heart failure) I50.22 Primary hypertension I10 Hypertension type: primary hypertension Subclinical hypothyroidism E03.8 Iron (Fe) deficiency anemia D50.9 Tubulovillous adenoma of colon D12.6 Multiple skin tears T14.8XXA
[2025-03-08 11:27] VITALS: BP 131/66; PULSE 67; RESP 17; TEMP 36.7; O2SAT 96
[2025-03-08 14:25] VITALS: BP 131/66; PULSE 67; RESP 17; TEMP 36.7; O2SAT 96
--- NOTE | 2025-03-08 14:51 | PC.NURSE ---
Called report to James Swanson LPN at [facility]
== END 2025-03-08 14:49 | disposition skilled nursing facility (03) | DRG 641 ==
LOC: ER 17:45 → ER IP 17:48 → MEDSURG 03-05 10:48
PROVIDERS: Internal Medicine; Admitting Provider Student in an Organized Health Care Education/Training Program; Emergency Provider Emergency Medicine; Visit Provider Student in an Organized Health Care Education/Training Program
DX: E87.6 Hypokalemia (principal); I50.22 Chronic systolic (congestive) heart failure; I42.9 Cardiomyopathy, unspecified; E87.1 Hypo-osmolality and hyponatremia; F10.10 Alcohol abuse, uncomplicated; Y90.0 Blood alcohol level of less than 20 mg/100 ml; R53.1 Weakness; R29.6 Repeated falls; I48.0 Paroxysmal atrial fibrillation; I25.10 Atherosclerotic heart disease of native coronary artery without angina pectoris; I11.0 Hypertensive heart disease with heart failure; E03.9 Hypothyroidism, unspecified; D50.9 Iron deficiency anemia, unspecified; D12.6 Benign neoplasm of colon, unspecified; T14.8XXA Other injury of unspecified body region, initial encounter; W01.0XXA Fall on same level from slipping, tripping and stumbling without subsequent striking against object, initial encounter; J44.9 Chronic obstructive pulmonary disease, unspecified; I73.9 Peripheral vascular disease, unspecified; E83.39 Other disorders of phosphorus metabolism; R94.31 Abnormal electrocardiogram [ECG] [EKG]; E87.8 Other disorders of electrolyte and fluid balance, not elsewhere classified; E86.0 Dehydration; G72.89 Other specified myopathies; N40.1 Benign prostatic hyperplasia with lower urinary tract symptoms; I35.0 Nonrheumatic aortic (valve) stenosis; Z79.899 Other long term (current) drug therapy; Z79.82 Long term (current) use of aspirin; Z89.422 Acquired absence of other left toe(s); Z95.820 Peripheral vascular angioplasty status with implants and grafts; Z85.21 Personal history of malignant neoplasm of larynx; Z87.891 Personal history of nicotine dependence; Z85.828 Personal history of other malignant neoplasm of skin; Z95.5 Presence of coronary angioplasty implant and graft
CPT/HCPCS: 36415; 36430; 70450; 74176; 80048; 80053; 80069; 80307; 82607; 82746; 83540; 83550; 83735; 84100; 84439; 84443; 85025; 86850; 86900; 86920; 92507; 92523; 92526; 92610; 96372; 97110; 97161; 97167; 97530; 97535; 99285; J1644; J1756; J2470; J3411; J3475; J3480; J7040; J9999; P9040

== ENCOUNTER → 2025-03-28 15:07 | Outpatient (BNVA) | payer OTHER, SELFPAY | PROVIDERS: Visit Provider Orthopaedic Surgery | DX: M48.062 Spinal stenosis, lumbar region with neurogenic claudication (principal); R53.1 Weakness | CPT/HCPCS: 36415; 80053; 85025; 99214 ==

== ENCOUNTER 2025-04-01 11:47 | Outpatient (CLI) | payer OTHER, SELFPAY ==
[2025-04-01 12:54] LABS: Glucose Urine UA Negative (Normal); Nitrate Urine Negative (Negative); Specific Gravity, Urine 1.015 (1.005-1.030)
[2025-04-01 12:57] LABS: Add Urine Microscopic? YES
== END 2025-04-01 11:48 | disposition home or self-care (01) ==
LOC: LAB 11:48
PROVIDERS: PCP Orthopaedic Surgery; Visit Provider Orthopaedic Surgery
DX: M54.9 Dorsalgia, unspecified (principal)
CPT/HCPCS: 81001

== ENCOUNTER → 2025-05-28 15:33 | Outpatient (BNVA) | payer OTHER, SELFPAY | PROVIDERS: PCP Orthopaedic Surgery; Visit Provider Nurse Practitioner | DX: Z01.818 Encounter for other preprocedural examination (principal); M48.062 Spinal stenosis, lumbar region with neurogenic claudication; M51.16 Intervertebral disc disorders with radiculopathy, lumbar region; I11.0 Hypertensive heart disease with heart failure; I50.42 Chronic combined systolic (congestive) and diastolic (congestive) heart failure; I48.0 Paroxysmal atrial fibrillation; J44.9 Chronic obstructive pulmonary disease, unspecified; Z79.82 Long term (current) use of aspirin; F10.10 Alcohol abuse, uncomplicated | CPT/HCPCS: 80053; 81000; 85025 ==